=== PATIENT | male | born 1950 | race Caucasian/White ===

== ENCOUNTER → 2016-06-16 | Outpatient (CLI) | payer MEDICARE, MEDICAID ==
[~2016-06-16] MED LIST: ANUS25SU PR; ATIV2TAB PO; DEPA500T2 PO; NATU400T PO; RISP3TAB18 PO; SERO1TAB PO; TRAZ50TA4 PO; VITA200016 PO; ZANTTAB9 PO
[2016-06-16 14:23] LABS: BASO % 0.4 % (0.0-1.0); EOS # 0.1 K/mm3 (0.0-0.50); EOS % 1.9 % (0.0-3.0); LARGE UNSTAINED CELL # 0.1 K/mm3 (0.0-0.4); LARGE UNSTAINED CELL % 2.7 % (0.0-4.0); LYMPH # 1.5 K/mm3 (1.5-4.5); LYMPH % 27.5 % (24.0-44.0); MEAN CORPUSCULAR HEMOGLOBIN 30.8 pg (27.0-33.0); MEAN CORPUSCULAR VOLUME 93.4 fl (80.0-96.0); MONO # 0.5 K/mm3 (0.0-0.8); NEUTROPHILS % 58.6 % (36.0-66.0); PLATELET COUNT, AUTOMATED 211 k/mm3 (150-450); RED CELL DISTRIBUTION WIDTH 13.6 % (11.5-14.5)
[2016-06-16 14:31] LABS: ALBUMIN 3.8 GM/DL (3.2-5.2); ALBUMIN/GLOBULIN RATIO 0.97 (1.00-1.93); ALKALINE PHOSPHATASE 81 U/L (45-117); ALT/SGPT 23 U/L (12-78); ANION GAP 8 MEQ/L (8-16); AST/SGOT 24 U/L (15-37); BILIRUBIN,TOTAL 0.6 MG/DL (0.2-1.0); BLOOD UREA NITROGEN 15 MG/DL (7-18); CALCIUM LEVEL 8.5 MG/DL (8.8-10.2); CARBON DIOXIDE LEVEL 31 MEQ/L (21-32); CHLORIDE LEVEL 100 MEQ/L (98-107); CHOLESTEROL LEVEL 133 MG/DL (<200); CREATININE FOR GFR 0.88 MG/DL (0.70-1.30); FREE T4 1.03 NG/DL (0.76-1.46); GLOMERULAR FILTRATION RATE > 60.0 (>49); GLUCOSE, FASTING 89 MG/DL (80-110); POTASSIUM SERUM 4.9 MEQ/L (3.5-5.1); SODIUM LEVEL 139 MEQ/L (136-145); TOTAL PROTEIN 7.7 GM/DL (6.4-8.2); TRIGLYCERIDES LEVEL 66 MG/DL (<150)
== END ==
LOC: M WUC 09:15
PROVIDERS: ATTEND Family Medicine
DX: N18.3 Chronic kidney disease, stage 3 (moderate) (principal); R73.01 Impaired fasting glucose

== ENCOUNTER 2016-06-17 13:50 | Emergency (ER) | payer MEDICARE, MEDICAID ==
[~2016-06-17] VITALS: Ht 160 cm; Wt 65.8 kg
[~2016-06-17 13:50] MED LIST changes: -ANUS25SU PR
[2016-06-17 13:51] VITALS: BP 138/93
[2016-06-17] MEDS ORDERED: ANUS25SU PR (14:37)
== END 2016-06-17 14:49 | disposition home or self-care (01) ==
LOC: M ED 14:30
DX: K64.9 Unspecified hemorrhoids (principal); F79 Unspecified intellectual disabilities; Z88.8 Allergy status to other drugs, medicaments and biological substances; Z79.899 Other long term (current) drug therapy

== ENCOUNTER → 2016-08-09 | Outpatient (CLI) | payer MEDICARE, MEDICAID ==
[~2016-08-09] MED LIST changes: +ANUS25SU PR
[2016-08-09 09:29] LABS: BASO % 0.4 % (0.0-1.0); EOS # 0.1 K/mm3 (0.0-0.50); LARGE UNSTAINED CELL # 0.1 K/mm3 (0.0-0.4); LARGE UNSTAINED CELL % 2.3 % (0.0-4.0); LYMPH # 1.7 K/mm3 (1.5-4.5); MEAN CORPUSCULAR HEMOGLOBIN 32.4 pg (27.0-33.0); MEAN CORPUSCULAR HGB CONC 34.4 g/dl (32.0-36.5); MEAN CORPUSCULAR VOLUME 94.3 fl (80.0-96.0); MONO # 0.4 K/mm3 (0.0-0.8); MONO % 7.9 % (0.0-5.0); NEUTROPHILS # 2.8 K/mm3 (1.8-7.7); NEUTROPHILS % 55.4 % (36.0-66.0); PLATELET COUNT, AUTOMATED 194 k/mm3 (150-450); RED CELL DISTRIBUTION WIDTH 13.6 % (11.5-14.5); WHITE BLOOD COUNT 5.1 K/mm3 (4.0-10.0)
[2016-08-09 09:51] LABS: ALBUMIN 3.5 GM/DL (3.2-5.2); ALBUMIN/GLOBULIN RATIO 0.95 (1.00-1.93); BILIRUBIN,DIRECT 0.1 MG/DL (0.0-0.2); BILIRUBIN,TOTAL 0.6 MG/DL (0.2-1.0); TOTAL PROTEIN 7.2 GM/DL (6.4-8.2)
[2016-08-09 10:23] LABS: PROLACTIN 18.9 NG/ML (2.1-17.7)
== END ==
LOC: M WUC 08:21
PROVIDERS: ATTEND Anesthesiology Pain Medicine
DX: Z51.81 Encounter for therapeutic drug level monitoring (principal); Z79.899 Other long term (current) drug therapy

== ENCOUNTER → 2016-08-09 | Outpatient (CLI) | payer MEDICARE, MEDICAID ==
[2016-08-09 09:29] LABS: BASO % 0.4 % (0.0-1.0); EOS # 0.1 K/mm3 (0.0-0.50); EOS % 2.1 % (0.0-3.0); LARGE UNSTAINED CELL # 0.1 K/mm3 (0.0-0.4); LARGE UNSTAINED CELL % 2.3 % (0.0-4.0); LYMPH # 1.8 K/mm3 (1.5-4.5); LYMPH % 33.2 % (24.0-44.0); MEAN CORPUSCULAR HEMOGLOBIN 32.1 pg (27.0-33.0); MEAN CORPUSCULAR HGB CONC 33.9 g/dl (32.0-36.5); MEAN CORPUSCULAR VOLUME 94.6 fl (80.0-96.0); MONO # 0.4 K/mm3 (0.0-0.8); MONO % 7.7 % (0.0-5.0); NEUTROPHILS # 2.8 K/mm3 (1.8-7.7); NEUTROPHILS % 54.3 % (36.0-66.0); PLATELET COUNT, AUTOMATED 175 k/mm3 (150-450); RED CELL DISTRIBUTION WIDTH 13.6 % (11.5-14.5); WHITE BLOOD COUNT 5.2 K/mm3 (4.0-10.0)
[2016-08-09 09:54] LABS: ALBUMIN 3.4 GM/DL (3.2-5.2); ALBUMIN/GLOBULIN RATIO 0.94 (1.00-1.93); ALKALINE PHOSPHATASE 71 U/L (45-117); ALT/SGPT 19 U/L (12-78); ANION GAP 6 MEQ/L (8-16); AST/SGOT 14 U/L (15-37); BILIRUBIN,TOTAL 0.5 MG/DL (0.2-1.0); BLOOD UREA NITROGEN 18 MG/DL (7-18); CALCIUM LEVEL 8.5 MG/DL (8.8-10.2); CARBON DIOXIDE LEVEL 32 MEQ/L (21-32); CHLORIDE LEVEL 102 MEQ/L (98-107); CREATININE FOR GFR 1.05 MG/DL (0.70-1.30); FERRITIN 256 NG/ML (26-388); GLOMERULAR FILTRATION RATE > 60.0 (>49); GLUCOSE, FASTING 76 MG/DL (80-110); PERCENT SATURATION 30.5 % (19.7-37.4); POTASSIUM SERUM 4.7 MEQ/L (3.5-5.1); SODIUM LEVEL 140 MEQ/L (136-145); TOTAL IRON BINDING CAPACITY 292 UG/DL (250-450)
[2016-08-09 10:02] LABS: VITAMIN B12 LEVEL 521 PG/ML (247-911)
[2016-08-09 11:12] LABS: ALBUMIN 3.98 GM/DL (3.29-5.55); ALBUMIN % 56.9 % (55.8-66.1)
== END ==
LOC: M WUC 08:26
PROVIDERS: ATTEND Family Medicine
DX: N18.3 Chronic kidney disease, stage 3 (moderate) (principal); R73.01 Impaired fasting glucose; Z12.5 Encounter for screening for malignant neoplasm of prostate; F73 Profound intellectual disabilities; L71.9 Rosacea, unspecified; Z87.19 Personal history of other diseases of the digestive system; K02.9 Dental caries, unspecified; E55.9 Vitamin D deficiency, unspecified; R13.10 Dysphagia, unspecified; R76.11 Nonspecific reaction to tuberculin skin test without active tuberculosis; B35.1 Tinea unguium; Z51.81 Encounter for therapeutic drug level monitoring; Z79.899 Other long term (current) drug therapy; Z86.79 Personal history of other diseases of the circulatory system
CPT/HCPCS: 36415; 80053; 80164; 82607; 82728; 83550; 84146; 84165; 85025; G0103

== ENCOUNTER → 2016-11-30 | Outpatient (REF) | payer MEDICARE, MEDICAID ==
[~2016-11-30] MED LIST changes: -RISP3TAB18 PO; +RISP3TAB20 PO; +TRAZ50TA11 PO; -TRAZ50TA4 PO
[2016-11-30 13:37] LABS: MEAN CORPUSCULAR HEMOGLOBIN 30.9 pg (27.0-33.0); MEAN CORPUSCULAR HGB CONC 32.5 g/dl (32.0-36.5); MEAN CORPUSCULAR VOLUME 95.1 fl (80.0-96.0); RED CELL DISTRIBUTION WIDTH 13.4 % (11.5-14.5); RETIC HEMOGLOBIN EQUIVALENT 37.3 pg (24-36); WHITE BLOOD COUNT 5.7 10^3/uL (4.0-10.0)
[2016-11-30 13:58] LABS: BANDS 1 % (< 11)
[2016-11-30 15:34] LABS: ALBUMIN 3.8 GM/DL (3.2-5.2); ALKALINE PHOSPHATASE 73 U/L (45-117); ALT/SGPT 25 U/L (12-78); ANION GAP 8 MEQ/L (8-16); AST/SGOT 19 U/L (15-37); BILIRUBIN,TOTAL 0.3 MG/DL (0.2-1.0); BLOOD UREA NITROGEN 17 MG/DL (7-18); CALCIUM LEVEL 8.9 MG/DL (8.8-10.2); CARBON DIOXIDE LEVEL 30 MEQ/L (21-32); CHLORIDE LEVEL 100 MEQ/L (98-107); CREATININE FOR GFR 0.95 MG/DL (0.70-1.30); GLOMERULAR FILTRATION RATE > 60.0 (>49); GLUCOSE, FASTING 83 MG/DL (80-110); POTASSIUM SERUM 4.8 MEQ/L (3.5-5.1); SODIUM LEVEL 138 MEQ/L (136-145); TOTAL PROTEIN 7.6 GM/DL (6.4-8.2)
[2016-12-03 12:28] LABS: PRETREATED FOLATE FOR RBCFOL 9.6 NG/ML
== END ==
LOC: M SFHCPLAZ 11:50
PROVIDERS: ATTEND Family Medicine
DX: D75.89 Other specified diseases of blood and blood-forming organs (principal); R73.01 Impaired fasting glucose
CPT/HCPCS: 80053; 80164; 82747; 83036; 85007; 85027; 85046; 86334; G0463

== ENCOUNTER → 2017-02-26 | Outpatient (CLI) | payer MEDICARE, MEDICAID | LOC: M WUC 16:33 | DX: R05 Cough (principal) | CPT/HCPCS: 71020 ==

== ENCOUNTER → 2017-04-07 | Outpatient (REF) | payer MEDICARE, MEDICAID ==
[2017-04-07 12:29] LABS: HEMATOCRIT 42.6 % (42.0-52.0); HEMOGLOBIN 13.8 g/dl (14.0-18.0); MEAN CORPUSCULAR HEMOGLOBIN 30.7 pg (27.0-33.0); MEAN CORPUSCULAR HGB CONC 32.4 g/dl (32.0-36.5); MEAN CORPUSCULAR VOLUME 94.7 fl (80.0-96.0); RED CELL DISTRIBUTION WIDTH 13.6 % (11.5-14.5); WHITE BLOOD COUNT 5.6 10^3/uL (4.0-10.0)
[2017-04-07 12:30] LABS: BASO % 0.4 % (0.0-1.0); EOS # 0.1 10^3/uL (0.0-0.50); EOS % 1.4 % (0.0-3.0); IMMATURE GRANULOCYTE % 0.7 % (0-3.0); LYMPH # 1.9 10^3/uL (1.5-4.5); LYMPH % 34.1 % (24.0-44.0); MONO # 0.7 10^3/uL (0.0-0.8); NEUTROPHILS # 2.8 10^3/uL (1.8-7.7); NEUTROPHILS % 50.4 % (36.0-66.0); PLATELET COUNT, AUTOMATED 209 10^3/uL (150-450)
[2017-04-07 12:44] LABS: ESTIMATED AVERAGE GLUCOSE 111 MG/DL (60-110); HEMOGLOBIN A1c 5.5 %
[2017-04-07 12:47] LABS: ALBUMIN 3.8 GM/DL (3.2-5.2); ALBUMIN/GLOBULIN RATIO 0.97 (1.00-1.93); ALKALINE PHOSPHATASE 75 U/L (45-117); ALT/SGPT 27 U/L (12-78); ANION GAP 6 MEQ/L (8-16); AST/SGOT 21 U/L (7-37); BILIRUBIN,TOTAL 0.2 MG/DL (0.2-1.0); BLOOD UREA NITROGEN 22 MG/DL (7-18); CALCIUM LEVEL 9.1 MG/DL (8.8-10.2); CARBON DIOXIDE LEVEL 32 MEQ/L (21-32); CHLORIDE LEVEL 102 MEQ/L (98-107); CREATININE FOR GFR 1.04 MG/DL (0.70-1.30); GLOMERULAR FILTRATION RATE > 60.0 (>49); GLUCOSE, FASTING 90 MG/DL (70-100); POTASSIUM SERUM 4.4 MEQ/L (3.5-5.1); SODIUM LEVEL 140 MEQ/L (136-145); TOTAL PROTEIN 7.7 GM/DL (6.4-8.2); VALPROIC ACID (DEPAKOTE) 73.7 UG/ML (50.0-100.0)
[2017-04-07 13:02] LABS: PTH INTACT 26.6 PG/ML (18.5-88.0); TOTAL 25(OH) VITAMIN D 48.6 NG/ML (30.0-100.0)
== END ==
LOC: M SFHCPLAZ 10:35
DX: D75.89 Other specified diseases of blood and blood-forming organs (principal); N18.3 Chronic kidney disease, stage 3 (moderate); R73.01 Impaired fasting glucose; Z12.5 Encounter for screening for malignant neoplasm of prostate; E55.9 Vitamin D deficiency, unspecified; F73 Profound intellectual disabilities
CPT/HCPCS: 80164

== ENCOUNTER 2017-05-23 19:34 | Emergency (ER) | payer MEDICARE, MEDICAID ==
[2017-05-23] MEDS: LORazepam 2 MG TAB PO ×2 (21:55)
== END 2017-05-23 22:03 | disposition home or self-care (01) ==
LOC: M ED 19:34
DX: Z76.0 Encounter for issue of repeat prescription (principal); F79 Unspecified intellectual disabilities; Z79.899 Other long term (current) drug therapy; Z88.8 Allergy status to other drugs, medicaments and biological substances
CPT/HCPCS: 99283

== ENCOUNTER → 2017-06-21 | Outpatient (CLI) | payer MEDICARE, MEDICAID | LOC: M SMT 09:37 | DX: J69.0 Pneumonitis due to inhalation of food and vomit (principal) | CPT/HCPCS: 71046 ==

== ENCOUNTER → 2017-09-03 | Outpatient (CLI) | payer MEDICARE, MEDICAID ==
[2017-09-03 19:26] LABS: ALBUMIN 3.7 GM/DL (3.2-5.2); ALBUMIN/GLOBULIN RATIO 1.12 (1.00-1.93); ALKALINE PHOSPHATASE 77 U/L (45-117); ALT/SGPT 25 U/L (12-78); ANION GAP 5 MEQ/L (8-16); AST/SGOT 20 U/L (7-37); BILIRUBIN,TOTAL 0.4 MG/DL (0.2-1.0); BLOOD UREA NITROGEN 17 MG/DL (7-18); CALCIUM LEVEL 8.7 MG/DL (8.8-10.2); CARBON DIOXIDE LEVEL 34 MEQ/L (21-32); CHLORIDE LEVEL 103 MEQ/L (98-107); CREATININE FOR GFR 0.99 MG/DL (0.70-1.30); GLOMERULAR FILTRATION RATE > 60.0 (>49); GLUCOSE, FASTING 114 MG/DL (70-100); POTASSIUM SERUM 4.5 MEQ/L (3.5-5.1); SODIUM LEVEL 142 MEQ/L (136-145); VALPROIC ACID (DEPAKOTE) 71.8 UG/ML (50.0-100.0)
[2017-09-03 19:32] LABS: ESTIMATED AVERAGE GLUCOSE 108 MG/DL (60-110); HEMOGLOBIN A1c 5.4 %
[2017-09-03 19:36] LABS: BASO % 0.4 % (0.0-1.0); EOS # 0.1 10^3/uL (0.0-0.50); EOS % 0.9 % (0.0-3.0); HEMATOCRIT 40.1 % (42.0-52.0); HEMOGLOBIN 13.3 g/dl (13.5-17.5); IMMATURE GRANULOCYTE % 0.2 % (0-3.0); LYMPH # 1.7 10^3/uL (1.5-4.5); LYMPH % 32.8 % (24.0-44.0); MEAN CORPUSCULAR HEMOGLOBIN 31.4 pg (27.0-33.0); MEAN CORPUSCULAR HGB CONC 33.2 g/dl (32.0-36.5); MEAN CORPUSCULAR VOLUME 94.6 fl (80.0-96.0); MONO # 0.7 10^3/uL (0.0-0.8); MONO % 12.5 % (0.0-5.0); NEUTROPHILS # 2.8 10^3/uL (1.8-7.7); NEUTROPHILS % 53.2 % (36.0-66.0); PLATELET COUNT, AUTOMATED 189 10^3/uL (150-450); RED BLOOD COUNT 4.24 10^6/uL (4.30-6.10); RED CELL DISTRIBUTION WIDTH 13.8 % (11.5-14.5); WHITE BLOOD COUNT 5.3 10^3/uL (4.0-10.0)
[2017-09-06 15:00] LABS: INSULIN LEVEL 93.6 uIU/mL (2.6-24.9)
== END ==
LOC: M WUC 14:29
DX: N18.3 Chronic kidney disease, stage 3 (moderate) (principal); D75.89 Other specified diseases of blood and blood-forming organs; R73.01 Impaired fasting glucose; F73 Profound intellectual disabilities
CPT/HCPCS: 83525

== ENCOUNTER → 2018-01-13 | Outpatient (CLI) | payer MEDICARE, MEDICAID ==
[2018-01-13 09:21] LABS: TOTAL 25(OH) VITAMIN D 49.1 NG/ML (30.0-100.0); VITAMIN B12 LEVEL 578 PG/ML (247-911)
[2018-01-13 09:21] LABS: PTH INTACT 46.6 PG/ML (18.5-88.0)
[2018-01-13 10:39] LABS: ESTIMATED AVERAGE GLUCOSE 111 MG/DL (60-110); HEMOGLOBIN A1c 5.5 %
== END ==
LOC: M LAB 07:54
DX: R73.01 Impaired fasting glucose (principal); E55.9 Vitamin D deficiency, unspecified; D75.89 Other specified diseases of blood and blood-forming organs; Z79.899 Other long term (current) drug therapy
CPT/HCPCS: 82607

== ENCOUNTER → 2018-01-18 | Outpatient (CLI) | payer MEDICARE, MEDICAID | LOC: M WUC 09:29 | DX: R05 Cough (principal); R50.9 Fever, unspecified | CPT/HCPCS: 71046 ==

== ENCOUNTER → 2018-01-30 | Outpatient (REF) | payer MEDICARE, MEDICAID ==
[2018-01-30 12:49] LABS: BASO % 0.7 % (0.0-1.0); EOS # 0.1 10^3/uL (0.0-0.50); EOS % 1.2 % (0.0-3.0); HEMATOCRIT 39.4 % (42.0-52.0); HEMOGLOBIN 12.9 g/dl (13.5-17.5); IMMATURE GRANULOCYTE % 1.3 % (0-3.0); LYMPH # 2.1 10^3/uL (1.5-4.5); LYMPH % 34.7 % (24.0-44.0); MEAN CORPUSCULAR HEMOGLOBIN 31.7 pg (27.0-33.0); MEAN CORPUSCULAR HGB CONC 32.7 g/dl (32.0-36.5); MEAN CORPUSCULAR VOLUME 96.8 fl (80.0-96.0); MONO # 0.7 10^3/uL (0.0-0.8); MONO % 11.8 % (0.0-5.0); NEUTROPHILS % 50.3 % (36.0-66.0); PLATELET COUNT, AUTOMATED 245 10^3/uL (150-450); RED BLOOD COUNT 4.07 10^6/uL (4.30-6.10); RED CELL DISTRIBUTION WIDTH 13.2 % (11.5-14.5)
[2018-01-30 13:13] LABS: ALKALINE PHOSPHATASE 71 U/L (45-117); ALT/SGPT 22 U/L (12-78); ANION GAP 5 MEQ/L (8-16); AST/SGOT 15 U/L (7-37); BLOOD UREA NITROGEN 26 MG/DL (7-18); CALCIUM LEVEL 8.9 MG/DL (8.8-10.2); CARBON DIOXIDE LEVEL 33 MEQ/L (21-32); CHLORIDE LEVEL 105 MEQ/L (98-107); CREATININE FOR GFR 1.09 MG/DL (0.70-1.30); GLOMERULAR FILTRATION RATE > 60.0 (>49); GLUCOSE, FASTING 93 MG/DL (70-100); POTASSIUM SERUM 4.5 MEQ/L (3.5-5.1); SODIUM LEVEL 143 MEQ/L (136-145)
[2018-01-30 13:14] LABS: ALBUMIN 3.4 GM/DL (3.2-5.2); ALBUMIN/GLOBULIN RATIO 1.03 (1.00-1.93); BILIRUBIN,TOTAL 0.3 MG/DL (0.2-1.0); TOTAL PROTEIN 6.7 GM/DL (6.4-8.2)
== END ==
LOC: M SFHCPLAZ 10:39
DX: J18.9 Pneumonia, unspecified organism (principal)
CPT/HCPCS: 80053

== ENCOUNTER → 2018-02-03 | Outpatient (CLI) | payer MEDICARE, MEDICAID | LOC: M WHC 14:58 | DX: E55.9 Vitamin D deficiency, unspecified (principal) | CPT/HCPCS: 77080 ==

== ENCOUNTER → 2018-06-20 | Outpatient (REF) | payer MEDICARE, MEDICAID ==
[~2018-06-20] MED LIST changes: +ALBU83IN INH; +AMOX500T2 PO; +Acetaminophen Tab PO; +BENZ-18 PO; +DEPA250T32 PO; +DIVA250T7 PO; +DIVA500T9 PO; +DIVA500T94 PO; +DOXY1CAP60 PO; +LEVA12INH INH; +MUCI600T37 PO; +PRED10TA2 PO; +RANI150T PO; +SERO200T PO; +SERO200T43 PO; +SERO50TA PO; +TRAZ-160 PO; -TRAZ50TA11 PO
== END ==
LOC: M SFHCPLAZ 11:55
PROVIDERS: ATTEND Family Medicine
DX: D75.89 Other specified diseases of blood and blood-forming organs (principal); Z12.5 Encounter for screening for malignant neoplasm of prostate; R76.11 Nonspecific reaction to tuberculin skin test without active tuberculosis; R73.01 Impaired fasting glucose; F73 Profound intellectual disabilities; Z53.8 Procedure and treatment not carried out for other reasons

== ENCOUNTER → 2018-06-21 | Outpatient (CLI) | payer MEDICARE, MEDICAID ==
[2018-06-21 10:03] LABS: BASO % 0.3 % (0.0-1.0); EOS # 0.2 10^3/uL (0.0-0.50); EOS % 2.6 % (0.0-3.0); HEMATOCRIT 41.9 % (42.0-52.0); HEMOGLOBIN 13.6 g/dl (13.5-17.5); LYMPH # 2.2 10^3/uL (1.5-4.5); LYMPH % 35.3 % (24.0-44.0); MEAN CORPUSCULAR HEMOGLOBIN 31.8 pg (27.0-33.0); MEAN CORPUSCULAR HGB CONC 32.5 g/dl (32.0-36.5); MEAN CORPUSCULAR VOLUME 97.9 fl (80.0-96.0); MONO # 0.8 10^3/uL (0.0-0.8); MONO % 13.4 % (0.0-5.0); NEUTROPHILS % 47.9 % (36.0-66.0); PLATELET COUNT, AUTOMATED 215 10^3/uL (150-450); RED BLOOD COUNT 4.28 10^6/uL (4.30-6.10); WHITE BLOOD COUNT 6.2 10^3/uL (4.0-10.0)
[2018-06-21 10:35] LABS: ALBUMIN 3.7 GM/DL (3.2-5.2); ALT/SGPT 29 U/L (12-78); BILIRUBIN,TOTAL 0.2 MG/DL (0.2-1.0); BLOOD UREA NITROGEN 25 MG/DL (7-18); CALCIUM LEVEL 8.2 MG/DL (8.8-10.2); CARBON DIOXIDE LEVEL 32 MEQ/L (21-32); CHLORIDE LEVEL 107 MEQ/L (98-107); CREATININE FOR GFR 1.08 MG/DL (0.70-1.30); GLOMERULAR FILTRATION RATE > 60.0 (>49); GLUCOSE, FASTING 91 MG/DL (70-100); POTASSIUM SERUM 4.2 MEQ/L (3.5-5.1); SODIUM LEVEL 143 MEQ/L (136-145); VALPROIC ACID (DEPAKOTE) 68.9 UG/ML (50.0-100.0)
== END ==
LOC: M WUC 08:48
PROVIDERS: ATTEND Family Medicine
DX: Z12.5 Encounter for screening for malignant neoplasm of prostate (principal); D75.89 Other specified diseases of blood and blood-forming organs; R73.01 Impaired fasting glucose; F73 Profound intellectual disabilities; R76.11 Nonspecific reaction to tuberculin skin test without active tuberculosis
CPT/HCPCS: 36415; 80053; 80164; 83525; 85025; 85046; 86335; 86480; G0103

== ENCOUNTER → 2018-09-21 | Outpatient (CLI) | payer MEDICARE, MEDICAID ==
[~2018-09-21] MED LIST changes: -TRAZ-160 PO; +TRAZ-252 PO
--- NOTE | 2018-09-22 07:20 | REP ---
RIGHT FEMUR, AP AND LATERAL: AP and lateral views of the femur are performed. I see no acute fracture or dislocation. There is mild joint space narrowing at the hip joint with moderate spurring and subchondral sclerosis. There is slight narrowing of the medial aspect of the knee joint. IMPRESSION: Degenerative changes without fracture or dislocation. Electronically Signed by Anjel Damico MD 09/22/2018 08:53 A
== END ==
LOC: M WUC 19:19
PROVIDERS: ATTEND Physician Assistant
DX: M16.11 Unilateral primary osteoarthritis, right hip (principal)

== ENCOUNTER 2018-10-19 15:43 | Observation (INO) | payer MEDICARE, MEDICAID ==
[~2018-10-19] VITALS: Ht 160 cm; Wt 66.6 kg
[2018-10-19] MEDS ORDERED: DOXY50CA4 PO (16:26)
--- NOTE | 2018-10-19 16:47 | REP ---
HISTORY: Stroke-like symptoms. TECHNIQUE: 4.5 mm contiguous transaxial sections were obtained from the skull base to the cerebral convexities with thin cuts through the posterior fossa without the administration of intravenous contrast. FINDINGS: The ventricles and sulci are consistent with the patient's age. There are no extra-axial fluid collections. There is no mass effect. The deep cerebral white matter is consistent with the patient's age. The orbital and petrous structures , cerebellopontine angles, and posterior fossa are unremarkable. The sella turcica, cavernous, and paracavernous structures are essentially unremarkable. The visualized portions of the paranasal sinuses and mastoid air cells are clear. Images of the skull base show no gross abnormality. IMPRESSION: Essentially unremarkable CT examination of the brain. There is evidence of cerebral and cerebellar atrophic change with evidence of mild deep white matter ischemic change. Electronically Signed by Ruddy Amador DO 10/19/2018 04:51 P
[2018-10-19 16:53] LABS: HEMATOCRIT 34.6 % (42.0-52.0); HEMOGLOBIN 11.3 g/dl (13.5-17.5); MEAN CORPUSCULAR HEMOGLOBIN 31.7 pg (27.0-33.0); MEAN CORPUSCULAR HGB CONC 32.7 g/dl (32.0-36.5); MEAN CORPUSCULAR VOLUME 96.9 fl (80.0-96.0); PLATELET COUNT, AUTOMATED 211 10^3/uL (150-450); RED BLOOD COUNT 3.57 10^6/uL (4.30-6.10); WHITE BLOOD COUNT 9.1 10^3/uL (4.0-10.0)
--- NOTE | 2018-10-19 17:03 | REP ---
Portable chest, 04:50 p.m., single AP view with the patient sitting: Comparison is 01/09/2018. The lung lindsay are clear. The cardiac size is normal. The franklin, mediastinum, and skeletal structures are unremarkable. Impression: Negative portable chest. There is no interval change. Electronically Signed by Anjel Tineo MD 10/19/2018 04:55 P
[2018-10-19 17:07] LABS: ALBUMIN 2.5 GM/DL (3.2-5.2); ALT/SGPT 18 U/L (12-78); BILIRUBIN,DIRECT 0.1 MG/DL (0.0-0.2); BILIRUBIN,TOTAL 0.4 MG/DL (0.2-1.0); BLOOD UREA NITROGEN 27 MG/DL (7-18); CALCIUM LEVEL 8.5 MG/DL (8.8-10.2); CARBON DIOXIDE LEVEL 28 MEQ/L (21-32); CHLORIDE LEVEL 106 MEQ/L (98-107); CK-MB VALUE MASS 1.1 NG/ML (<3.6); CPK CREATINE PHOSPHOKINASE 393 U/L (39-308); ETHYL ALCOHOL (ETHANOL) < 0.003 % (0.000-0.010); GLOMERULAR FILTRATION RATE > 60.0 (>49); GLUCOSE, FASTING 103 MG/DL (70-100); MB/CK RELATIVE INDEX 0.28 (< OR =4); POTASSIUM SERUM 4.4 MEQ/L (3.5-5.1); SODIUM LEVEL 140 MEQ/L (136-145); TOTAL PROTEIN 6.1 GM/DL (6.4-8.2); TROPONIN I 0.03 NG/ML (< 0.10); VALPROIC ACID (DEPAKOTE) 62.8 UG/ML (50.0-100.0)
[2018-10-19 17:17] LABS: ATYPICAL LYMPH 1 % (0-5); BASOPHILS 1 % (0-1); EOSINOPHILS 1 % (0-3); LYMPHOCYTES 23 % (19-44); MONOCYTES 17 % (0-5); NEUTROPHILS 57 % (28-66); PLATELET ESTIMATE NORMAL (NORMAL)
[2018-10-19] MEDS ORDERED: ISOVUE-370 76% 100ML VIAL (Q9967) As Ordered ONE (17:30)
[2018-10-19 17:36] LABS: AMPHETAMINES LEVEL URINE NEGATIVE (NEGATIVE); BARBITURATES URINE NEGATIVE (NEGATIVE); BENZODIAZEPINES URINE NEGATIVE (NEGATIVE); CANNABINOIDS URINE NEGATIVE (NEGATIVE); COCAINE METABOLITE URINE NEGATIVE (NEGATIVE); METHADONE URINE NEGATIVE (NEGATIVE); OPIATES URINE NEGATIVE (NEGATIVE); PHENCYCLIDINE URINE NEGATIVE (NEGATIVE)
--- NOTE | 2018-10-19 18:13 | REPVR ---
EXAM: CT Angiography Neck With Contrast EXAM DATE/TIME: 10/19/2018 5:33 PM CLINICAL HISTORY: 68 years old, male; Other: CVA TECHNIQUE: Imaging protocol: Axial computed tomographic angiography images of the neck with intravenous contrast using CT angiography protocol. 3D rendering: MIP reconstructed images were created and reviewed. Radiation optimization: All CT scans at this facility use at least one of these dose optimization techniques: automated exposure control; mA and/or kV adjustment per patient size (includes targeted exams where dose is matched to clinical indication); or iterative reconstruction. Contrast material: ISOVUE 370; Contrast volume: 100 ml; Contrast route: IV; COMPARISON: No relevant prior studies available. FINDINGS: VASCULATURE: Right common carotid artery: Unremarkable. No stenosis. No dissection or occlusion. Right internal carotid artery: Unremarkable extracranial segment. No stenosis. No dissection or occlusion. Right external carotid artery: Unremarkable. No occlusion or stenosis of the origin. Right vertebral artery: Unremarkable. No stenosis. No dissection or occlusion. Left common carotid artery: Unremarkable. No stenosis. No dissection or occlusion. Left internal carotid artery: Unremarkable extracranial segment. No stenosis. No dissection or occlusion. Left external carotid artery: Unremarkable. No occlusion or stenosis of the origin. Left vertebral artery: Mild dominance left vertebral artery. NECK: Bones/joints: Degenerative spondylosis cervical spine. Soft tissues: Normal. No significant soft tissue swelling. Lymph nodes: Right hilar, right paratracheal, and subcarinal lymphadenopathy. IMPRESSION: 1. Right hilar, right paratracheal, and subcarinal lymphadenopathy. 2. No significant atherosclerotic disease in either carotid artery indicating less than 50% or mild stenosis using NASCET criteria. 3. Mild dominance left vertebral artery. COMMENT: Reference per NASCET criteria for degree of stenosis: Mild: less than 50% stenosis. Moderate: 50-69% stenosis. Severe: 70-94% stenosis. Near occlusion: 95-99% stenosis. Electronically signed by: Segun Tesfaye On 10/19/2018 18:12:56 PM
--- NOTE | 2018-10-19 18:16 | REPVR ---
EXAM: CT Angiography Head With Contrast EXAM DATE/TIME: 10/19/2018 5:33 PM CLINICAL HISTORY: 68 years old, male; Other: R facial droop; Additional info: CVA TECHNIQUE: Imaging protocol: Computed tomographic angiography images of the head with intravenous contrast using CT angiography protocol. 3D rendering: MIP reconstructed images were created and reviewed. Radiation optimization: All CT scans at this facility use at least one of these dose optimization techniques: automated exposure control; mA and/or kV adjustment per patient size (includes targeted exams where dose is matched to clinical indication); or iterative reconstruction. Contrast material: ISOVUE 370; Contrast volume: 100 ml; Contrast route: IV; COMPARISON: CT Head Stroke Protocol 10/19/2018 3:48 PM FINDINGS: Right internal carotid artery: Unremarkable. Intracranial segment is patent with no significant stenosis. No aneurysm. Right anterior cerebral artery: Unremarkable. No occlusion or significant stenosis. No aneurysm. Right middle cerebral artery: Unremarkable. No occlusion or significant stenosis. No aneurysm. Right posterior cerebral artery: Unremarkable. No occlusion or significant stenosis. No aneurysm. Right vertebral artery: Unremarkable. No occlusion or significant stenosis. No aneurysm. Left internal carotid artery: Unremarkable. Intracranial segment is patent with no significant stenosis. No aneurysm. Left anterior cerebral artery: Unremarkable. No occlusion or significant stenosis. No aneurysm. Left middle cerebral artery: Unremarkable. No occlusion or significant stenosis. No aneurysm. Left posterior cerebral artery: Unremarkable. No occlusion or significant stenosis. No aneurysm. Left vertebral artery: Unremarkable. No occlusion or significant stenosis. No aneurysm. Basilar artery: Unremarkable. No occlusion or significant stenosis. No aneurysm. IMPRESSION: No acute findings. Electronically signed by: Segun Tesfaye On 10/19/2018 18:16:11 PM
[2018-10-19] MEDS ORDERED: VITA400C56 PO (19:29)
[2018-10-19] MEDS ORDERED: RANI75TA15 PO (19:29)
[2018-10-19] MEDS ORDERED: QUET200T54 PO (19:29)
[2018-10-19] MEDS ORDERED: DOCU100C16 PO (19:29)
[2018-10-19] MEDS ORDERED: MILKSUS3 PO (19:29)
[2018-10-19] MEDS ORDERED: QUEtiapine FUMARATE **XR** 200MG TABLET PO SCH (21:00)
[2018-10-19] MEDS ORDERED: DIVALPROEX 250MG *ER* TAB PO SCH (21:00)
[2018-10-19] MEDS ORDERED: FAMOTIDINE 20 MG TAB PO SCH (21:00)
[2018-10-19] MEDS ORDERED: traZODone 50 MG TAB PO SCH (21:00)
--- NOTE | 2018-10-19 22:09 | REPVR ---
EXAM: US Duplex Bilateral Extracranial Arteries EXAM DATE/TIME: 10/19/2018 9:59 PM CLINICAL HISTORY: 68 years old, male; Other: Facial droop; Patient HX: Patient mentally handicapped, unable to complete exam d. T patient motion and cooperation TECHNIQUE: Imaging protocol: Real-time Duplex ultrasound scan of the Bilateral carotid and vertebral arteries combining lin scale, color Doppler and spectral waveform analysis. COMPARISON: CT Head Stroke Protocol 10/19/2018 3:48 PM It should be noted that only the right carotid artery was evaluated as this patient was noncooperative and unable to complete examination. FINDINGS: Right common carotid artery: Unremarkable. No occlusion or stenosis. Waveforms are not evaluated Right internal carotid artery: Unremarkable. No occlusion or stenosis. Waveforms not evaluated Right ICA/CCA ratio: Not calculated Right external carotid artery: No stenosis in the origin. Right vertebral artery: Unremarkable. Antegrade flow Left common carotid artery: Not evaluated Left internal carotid artery: Not evaluated Left ICA/CCA ratio: Not evaluated Left external carotid artery: Not evaluated Left vertebral artery: Evaluated IMPRESSION: 1. Nondiagnostic study of the left carotid artery. 2. There is limited evaluation of the right carotid artery without evidence of any significant atherosclerotic plaque or narrowing. Less than 50% stenosis. COMMENT: Carotid Stenosis Reference using SRU criteria: Mild: less than 50% stenosis. ICA PSV is less than 125 cm/second and plaque or intimal thickening is visible. Moderate: 50-69% stenosis. ICA PSV is 125 to 230 cm/second and plaque is visible. Severe: 70-94% stenosis. ICA PSV is more than 230 cm/second and visible plaque and lumen narrowing are seen. Near occlusion: 95-99% stenosis. ICA PSV is variable and significant plaque and luminal narrowing are seen. Occluded: 100% stenosis. No flow identified. Electronically signed by: Segun Tesfaye On 10/19/2018 22:08:56 PM
[2018-10-19] MEDS: risperiDONE 3 MG TAB PO SCH (23:00)
[2018-10-19] MEDS: LORazepam 2 MG TAB PO SCH (23:00)
[2018-10-19 23:32] VITALS: BP 161/96
[2018-10-20] MEDS ORDERED: UNRESOLVED PATIENT OWN MED ORDER XX SCH (00:01)
--- NOTE | 2018-10-20 01:48 | HPEPDOC ---
[facility] Medical History & Physical Date of Admission Oct 19, 2018 Date of Service: Oct 19, 2018 History and Physical CHIEF COMPLAINT: [RIGHT SIDED FACIAL DROOP ] HISTORY OF PRESENT ILLNESS: Patient is a 68 yo male with hx of MR and schizonphrenia who was sent to the ED for right sided facial droop. Patient is not able to give hx, but her aid at bedside, patient was noted to have facial drooping today and was sent in for eval for possible stroke. He also stated that there was concern for right ear swelling . He denied patient complaining of chest pain, sob, headache , blurry vision, abd pain, nausea or vomiting PAST MEDICAL HISTORY: 1. MR 2. Schizophrenia 3. rosesea PAST SURGICAL HISTORY: none SOCIAL HISTORY: resides at [facility] residence dependent on assistance with ADLs FAMILY HISTORY: unknown ALLERGIES: Please see below. HOME MEDICATIONS: Please see below. LABORATORY DATA: See below. IMAGING: [ CAROTID DOPPLER IMPRESSION: 1. Nondiagnostic study of the left carotid artery. 2. There is limited evaluation of the right carotid artery without evidence of any significant atherosclerotic plaque or narrowing. Less than 50% stenosis. CTA OF NECK IMPRESSION: 1. Right hilar, right paratracheal, and subcarinal lymphadenopathy. 2. No significant atherosclerotic disease in either carotid artery indicating less than 50% or mild stenosis using NASCET criteria. 3. Mild dominance left vertebral artery. Portable chest, 04:50 p.m., single AP view with the patient sitting: Comparison is 01/09/2018. The lung lindsay are clear. The cardiac size is normal. The franklin, mediastinum, and skeletal structures are unremarkable. Impression: Negative portable chest. There is no interval change. CT BRAIN IMPRESSION: Essentially unremarkable CT examination of the brain. There is evidence of cerebral and cerebellar atrophic change with evidence of mild deep white matter ischemic change.] ROS - all 10 point review of system is negative except for whats listed in HPI Physical exam Gen: NAD, semi-cooperative HEENT: normocephalic, atraumatic, no discharge from ears or nose, no oropharyngeal erythema or exudate, neck is supple, no lymphadenopathy, trachea midline, no ear exam due to uncooperativeness CVS: RRR, normal S1n S2, no murmur, rubs, or gallops, no edema, no jvd Resp: LCTAB, no rhonchi, wheezes or crackles Abd : soft nontender, normal bowel sounds, no rebound tenderness or guarding MSK: no swelling, full range of motion, strength 5/5 Neuro:awake and alert, follows some commands, no confusion, right sided facial droop without involvement of the forehead , right ptosis - neuro exam limited due to uncooperative problems Psych: slightly agitated MICROBIOLOGY: Please see below. ASSESSMENT: [Assessment and plan acute cva vs TIA -Images listed above -f/u mri//mra head and neck -f/u echo -c/w aspirin and start high dose statin - neuro consulted -swallow eval -npo until past swallow test -REHAB//PT eval right eye infection -mucous noted -antibiotic eye drop c/w home meds dvt ppx full code, from residence Contact - Clau Rodriguez - [phone] Donavon [phone] Vital Signs Vital Signs Date Time Temp Pulse Resp B/P (MAP) Pulse Ox O2 Delivery O2 Flow Rate FiO2 10/19/18 22:53 96.8 96 20 135/83 (100) 96 Room Air Laboratory Data Labs 24H Laboratory Tests 2 10/19/18 16:15: Nucleated Red Blood Cells % (auto) 0.0, Neutrophils 57, Lymphocytes (Manual) 23, Monocytes (Manual) 17H, Eosinophils (Manual) 1, Basophils (Manual) 1, Atypical Lymphocytes 1, Platelet Estimate NORMAL, Red Blood Cell Morphology NORMAL, Anion Gap 6L, Glomerular Filtration Rate > 60.0, Calcium Level 8.5L, Aspartate Amino Transf (AST/SGOT) 25, Alanine Aminotransferase (ALT/SGPT) 18, Alkaline Phosphatase 66, Total Bilirubin 0.4, Direct Bilirubin 0.1, Total Creatine Kinase 393H, Creatine Kinase MB 1.1, Creatine Kinase MB Relative Index 0.28, Troponin I 0.03, Total Protein 6.1L, Albumin 2.5L, Albumin/Globulin Ratio 0.69L, Thyroid Stimulating Hormone (TSH) 2.440, Valproic Acid (Depakene) Level 62.8, Ethyl Alcohol Level < 0.003 10/19/18 16:49: Urine Color JAKY, Urine Appearance CLEAR, Urine pH 5.0, Urine Specific [place] 1.029, Urine Protein NEGATIVE, Urine Glucose (UA) NEGATIVE, Urine Ketones TRACEH, Urine Blood NEGATIVE, Urine Nitrite NEGATIVE, Urine Bilirubin NEGATIVE, Urine Urobilinogen 0.2, Urine Leukocyte Esterase NEGATIVE, Urine WBC (Auto) 2, Urine RBC (Auto) 3, Urine Hyaline Casts (Auto) 0, Urine Bacteria (Auto) NEGATIVE, Urine Squamous Epithelial Cells 0, Urine Mucus (Auto) LARGE, Urine Sperm (Auto) , Urine Amphetamines Screen NEGATIVE, Urine Benzodiazepines Screen NEGATIVE, Urine Opiates Screen NEGATIVE, Urine Methadone Screen NEGATIVE, Urine Barbiturates Screen NEGATIVE, Urine Phencyclidine Screen NEGATIVE, Urine Cocaine Metabolite Screen NEGATIVE, Urine Cannabinoids Screen NEGATIVE 10/19/18 16:56: Bedside Glucose (Misc Panel) 102 CBC/BMP Laboratory Tests 10/19/18 16:15 Red Blood Count 3.57 L, Mean Corpuscular Volume 96.9 H, Mean Corpuscular Hemoglobin 31.7, Mean Corpuscular Hemoglobin Concent 32.7, Red Cell Distribution Width 13.2 Home Medications Scheduled Cholecalciferol (Vitamin D3) (Vitamin D3) 2,000 Unit Cap, 2,000 UNIT PO DAILY Divalproex Sodium (Divalproex Sodium ER) 250 Mg Tab, 250 MG PO QHS Divalproex Sodium (Divalproex Sodium ER) 500 Mg Tab, 500 MG PO DAILY Docusate Sodium (Docusate Sodium) 100 Mg Capsule, 100 MG PO BID Doxycycline Monohydrate (Doxycycline Monohydrate) 50 Mg Capsule, 50 MG PO DAILY Lorazepam (Ativan) 2 Mg Tab, 2 MG PO QID Magnesium Hydroxide (Milk of Magnesia) 400 Mg/5 Ml Oral.susp, 30 ML PO QHS Quetiapine Fumarate (Seroquel) 50 Mg Tab, 50 MG PO DAILY Quetiapine Fumarate (Quetiapine Fumarate ER) 200 Mg Tab.er.24h, 200 MG PO QHS Ranitidine HCl (Ranitidine HCl) 75 Mg Tablet, 1 TAB PO QHS Risperidone (Risperdal) 3 Mg Tab, 3 MG PO BID Trazodone HCl (Trazodone HCl) 50 Mg Tab, 50 MG PO QHS Vitamin E (Vitamin E) 400 Unit Capsule, 400 UNIT PO DAILY Allergies Coded Allergies: fentanyl (Verified Allergy, Intermediate, photosensitivity, 10/19/18) A-FIB/CHADSVASC A-FIB History Current/History of A-Fib/PAF?: No Current PO Anticoag Therapy: No Age/Risk Factor Scoring CHADSVASC: CHADSVASC Response (Comments) Value Age Risk Factor Age 65-74 years old 1 Gender Risk Factor Male 0 Hx of CHF No 0 Hx of HTN No 0 Hx of Stroke/TIA/or VTE No 0 Hx of Diabetes No 0 Hx of Vascular Disease No 0 Total 1 Treatment Treatment ordered: NONE LEONIDES COLEY MD Oct 20, 2018 01:22
[2018-10-20] MEDS ORDERED: ATORVASTATIN 20 MG TAB PO SCH (02:00)
[2018-10-20] MEDS: ASPIRIN 81 MG ENTERIC TAB PO SCH ×2 (03:44→09:00)
[2018-10-20] MEDS: ERYTHROMYCIN OPHTH OINT OD SCH ×3 (03:44→18:11)
[2018-10-20 04:00] VITALS: BP 130/64
--- NOTE | 2018-10-20 05:29 | ECGEPIP ---
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
[2018-10-20 05:54] LABS: HEMATOCRIT 34.7 % (42.0-52.0); HEMOGLOBIN 11.6 g/dl (13.5-17.5); MEAN CORPUSCULAR HEMOGLOBIN 31.8 pg (27.0-33.0); MEAN CORPUSCULAR HGB CONC 33.4 g/dl (32.0-36.5); MEAN CORPUSCULAR VOLUME 95.1 fl (80.0-96.0); PLATELET COUNT, AUTOMATED 227 10^3/uL (150-450); RED BLOOD COUNT 3.65 10^6/uL (4.30-6.10); WHITE BLOOD COUNT 9.4 10^3/uL (4.0-10.0)
[2018-10-20 06:27] LABS: BLOOD UREA NITROGEN 24 MG/DL (7-18); CALCIUM LEVEL 8.5 MG/DL (8.8-10.2); CARBON DIOXIDE LEVEL 29 MEQ/L (21-32); CHLORIDE LEVEL 104 MEQ/L (98-107); CHOLESTEROL LEVEL 86 MG/DL (<200); CHOLESTEROL RISK RATIO 2.529 (<5); CREATININE FOR GFR 1.05 MG/DL (0.70-1.30); GLOMERULAR FILTRATION RATE > 60.0 (>49); GLUCOSE, FASTING 111 MG/DL (70-100); HDL CHOLESTEROL 34 MG/DL (>40); LDL CHOLESTEROL 37 MG/DL (<100); MAGNESIUM LEVEL 2.2 MG/DL (1.8-2.4); NON-HDL-C 52 MG/DL; POTASSIUM SERUM 4.2 MEQ/L (3.5-5.1); SODIUM LEVEL 139 MEQ/L (136-145); TRIGLYCERIDES LEVEL 74 MG/DL (<150)
[2018-10-20 08:00] VITALS: BP 134/92
[2018-10-20] MEDS ORDERED: DOCUSATE SODIUM 100 MG CAP PO SCH (09:00)
[2018-10-20] MEDS ORDERED: DOXYCYCLINE HYCLATE 100 MG TAB PO SCH (09:00)
[2018-10-20] MEDS ORDERED: VITAMIN D 1,000 INTERNATIONAL UNITS TABLET PO SCH (09:00)
[2018-10-20] MEDS ORDERED: DIVALPROEX 500MG *ER* TAB PO SCH (09:00)
[2018-10-20] MEDS: LORazepam 2 MG TAB PO SCH ×3 (09:00→18:13)
[2018-10-20] MEDS ORDERED: QUEtiapine FUMARATE 50 MG TAB PO SCH (09:00)
[2018-10-20] MEDS ORDERED: VARIBAR PUDDING 40% w/v 230ML TUBE As Ordered ONE (11:03)
[2018-10-20] MEDS ORDERED: BARIUM SULFATE 700 MG TABLET (E-Z-DISK) As Ordered ONE (11:04)
[2018-10-20] MEDS ORDERED: E-Z-PAQUE 96% w/w SUSP 176GM BTL As Ordered ONE (11:04)
[2018-10-20] MEDS ORDERED: VARIBAR NECTAR 40% w/v 240ML SUSP BTL As Ordered ONE (11:04)
[2018-10-20 12:00] VITALS: BP 131/88
--- NOTE | 2018-10-20 13:40 | IPN ---
DATE: 10/19/2018 Joel is seen in progressive care unit (PCU). He is admitted with left facial droop. He does not have any weakness of the arms or hands. Admission history and physical indicated that the forehead was spared, but he actually does have some drooping of the forehead on that side as well, suggesting this might be a peripheral nerve and not a central process. Patient has mental retardation and schizophrenia and does not cooperate well with exam. PHYSICAL EXAMINATION: Vital signs stable. Right facial droop. Ptosis noted. He has decreased wrinkling in the right side of the forehead compared to the left. It is hard to get him to cooperate with wrinkling of his forehead fully. Lungs clear. Heart regular rate and rhythm. Abdomen soft and nontender. Moves arm and legs with equal strength. IMPRESSION: Facial droop, weakness. At this point we are waiting on the MRI scan. He did not cooperate with it previously. This could well be a peripheral nerve process, such as Ramirez's palsy. It is tick season, so I will check a Lyme screen.
[2018-10-20] MEDS: risperiDONE 3 MG TAB PO SCH (14:02)
[2018-10-20 16:00] VITALS: BP 163/97
--- NOTE | 2018-10-20 16:11 | REPVR ---
EXAM: MR Head Without Contrast EXAM DATE/TIME: 10/20/2018 3:06 PM CLINICAL HISTORY: 68 years old, male; Weakness, extremity; Right; Patient HX: Ptosis RT eyelid; Additional info: CVA TECHNIQUE: Imaging protocol: MR of the head without contrast. COMPARISON: CT Head Stroke Protocol 10/19/2018 3:48 PM FINDINGS: Brain: There is mild volume loss. There is hyperintense signal within the white matter most consistent with chronic microvascular disease. There are small old white matter lacunar infarcts. DWI demonstrates no evidence of acute infarct. Gradient echo images demonstrate no evidence of hemorrhage. There is no extra-axial collection. There is no mass. There are no abnormal flow voids. Ventricles: Normal. No ventriculomegaly. Bones/joints: Unremarkable. Soft tissues: Normal. Sinuses: Normal as visualized. No acute sinusitis. Mastoid air cells: Normal as visualized. No mastoid effusion. Orbits: Unremarkable. IMPRESSION: 1. There is chronic microvascular disease. 2. No acute intracranial lesion or injury. Electronically signed by: Jason Dwyer On 10/20/2018 16:10:57 PM
--- NOTE | 2018-10-20 16:18 | REPVR ---
EXAM: MR Angiogram Head Without Contrast, Arteries EXAM DATE/TIME: 10/20/2018 3:06 PM CLINICAL HISTORY: 68 years old, male; Weakness; Additional info: CVA TECHNIQUE: Imaging protocol: MR angiogram head without contrast. Exam focused on the arteries. COMPARISON: CT ANGIO HEAD 10/19/2018 5:28 PM FINDINGS: Right internal carotid artery: There is a small, less than 1 mm, bulge along the undersurface of the supraclinoid right internal carotid artery, probably a posterior communicating artery infundibulum. Right anterior cerebral artery: Unremarkable. No occlusion or significant stenosis. No aneurysm. Right middle cerebral artery: Unremarkable. No occlusion or significant stenosis. No aneurysm. Right posterior cerebral artery: Unremarkable. No occlusion or significant stenosis. No aneurysm. . Right vertebral artery: Unremarkable. No occlusion or significant stenosis. No aneurysm. Left internal carotid artery: There is a small triangular bulge along the undersurface of the supraclinoid left internal carotid artery measuring less than 10 mm. This is a probable posterior communicating artery infundibulum. Left anterior cerebral artery: Unremarkable. No occlusion or significant stenosis. No aneurysm. Left middle cerebral artery: Unremarkable. No occlusion or significant stenosis. No aneurysm. Left posterior cerebral artery: Unremarkable. No occlusion or significant stenosis. No aneurysm. Left vertebral artery: Unremarkable. No occlusion or significant stenosis. No aneurysm. Basilar artery: Unremarkable. No occlusion or significant stenosis. No aneurysm. Other findings: There is motion artifact. IMPRESSION: 1. Probable small, less than 2 mm on the left and left and 1 mm on the right, bilateral posterior communicating artery infundibula. No definite aneurysm. 2. No intracranial stenosis or occlusion. Electronically signed by: Jason Dwyer On 10/20/2018 16:17:48 PM
--- NOTE | 2018-10-20 16:52 | DSES ---
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 HISTORY: Joel Laureano has a history of mental retardation and schizophrenia. He had right facial droop and presented to the emergency room. For details, please refer to the history and physical on admission. HOSPITAL COURSE: The patient was admitted to a progressive care unit (PCU) bed. On examination today, I thought he had Ramirez's palsy: he had no significant sparing of his right forehead with a right facial droop and weakness. It took us awhile to get an MRI scan. Once it was done, it came back with no sign of stroke. Carotid ultrasound showed less than 50% stenosis bilaterally. CT angiogram was unremarkable. I ordered a Lyme screen and it is pending. Laboratory work was unremarkable. 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 He will followup with his primary care provider in a week. His medicines were unchanged from before admission. - vitamin D 2000 units daily - valproic acid 250 mg four at bedtime and 500 mg in the morning - Colace 10 mg twice a day - doxycycline 50 mg daily - Ativan 2 mg four times a day - Milk of Magnesia as needed - Seroquel 50 mg in the morning and 200 mg in the evening - ranitidine 75 mg at bedtime - Risperdal 3 mg twice a day - trazodone 50 mg at bedtime - vitamin E 400 units daily Activity and diet as tolerated. Followup with primary care provider in a week. JACQUES
--- NOTE | 2018-10-20 19:43 | REP ---
Examination Requested: Cookie Swallow Reason For Exam: Aspiration risk, difficulty swallowing The procedure was performed by ANA Hernandez, under the direct supervision of Dr. Tineo. The procedure was performed with Tita Calle from speech pathology present. 5 ml aliquots of nectar, and pudding consistency barium was administered. No penetration or aspiration was visualized. The detailed report of this examination will be provided by speech pathology. 1.7 minutes of fluoroscopy time was utilized for this procedure. Reviewed by ANA Santos 10/20/2018 05:35 P Electronically Signed by Anjel Tineo MD 10/20/2018 07:35 P
--- NOTE | 2018-10-21 06:51 | ECHO ---
DATE OF PROCEDURE: 10/20/2018 REFERRING PHYSICIAN: Dr. Karolina Oneill. HEIGHT: 160 cm. WEIGHT: 69 kg. INDICATION: Stroke. 2D MEASUREMENTS: Ventricular septum: 0.94 cm Posterior wall: 0.89 cm Left ventricle diastole: 4.3 cm Left atrium: 3.4 cm LVOT: 2.1 cm Aortic root: 2.8 cm Left atrial volume index: 22 Inferior vena cava: 1.5 cm DOPPLER MEASUREMENTS: Aortic valve velocity: 140 cm/s LVOT velocity: 109 cm/s Mitral E velocity: 68.9 cm/s Mitral A velocity: 86.3 cm/s Mitral deacceleration time: 169 ms Pulmonary artery systolic pressure: 19 mmHg MITRAL ANNULAR TISSUE DOPPLER: E-prime septal: 6.1 cm/s E-prime lateral: 6.9 cm/s DESCRIPTION: Rhythm was sinus. Image quality was fair. No pericardial effusion. This was a 2D, M-mode, color flow Doppler, and pulsed wave Doppler examination and included mitral annular tissue Doppler. CONCLUSIONS: 1. Normal left ventricle internal dimensions and wall thickness. Normal regional LV wall motion and wall thickening. Normal LV systolic function. Grade 1 LV diastolic dysfunction. 2. Otherwise normal echocardiogram Doppler findings.
[2018-10-22 00:06] LABS: Lyme Disease IgG/IgM Antibodie <0.91 ISR (0.00-0.90); Lyme Disease IgM Ab Quantitati <0.80 index (0.00-0.79)
== END 2018-10-20 19:53 | disposition home or self-care (01) ==
LOC: M ED 15:43 → EDBD 15:43 → M ED INP 15:44 → M PCU 23:32
PROVIDERS: ADMIT Internal Medicine; ATTEND Family Medicine
DX: G51.0 Bell's palsy (principal); H57.89 Other specified disorders of eye and adnexa; H02.401 Unspecified ptosis of right eyelid; I67.82 Cerebral ischemia; R41.82 Altered mental status, unspecified; F79 Unspecified intellectual disabilities; F20.9 Schizophrenia, unspecified; L71.9 Rosacea, unspecified; K21.9 Gastro-esophageal reflux disease without esophagitis; N18.9 Chronic kidney disease, unspecified; K02.9 Dental caries, unspecified; Z91.81 History of falling; Z79.899 Other long term (current) drug therapy; Z79.2 Long term (current) use of antibiotics
CPT/HCPCS: 36415; 51701; 70450; 70496; 70498; 70544; 70551; 71045; 74230; 80048; 80061; 80076; 80164; 80307; 81001; 82550; 82553; 83036; 83735; 84443; 84484; 85025; 85027; 86617; 92526; 92610; 92611; 93005; 93041; 93306; 93880; 94760; 99285; G0378; G0480; Q9967

== ENCOUNTER 2018-10-29 22:30 | Inpatient (IN) | payer MEDICARE, MEDICAID ==
[~2018-10-29] VITALS: Ht 172.7 cm; Wt 67.8 kg
[~2018-10-29 22:30] MED LIST changes: +DOCU100C16 PO; +DOXY50CA4 PO; +MILKSUS3 PO; +QUET200T54 PO; +RANI75TA15 PO; +VITA400C56 PO
[2018-10-29] MEDS ORDERED: NS 1,000 ML IV ONE (22:45)
[2018-10-29 23:16] LABS: HEMATOCRIT 38.6 % (42.0-52.0); HEMOGLOBIN 12.4 g/dl (13.5-17.5); MEAN CORPUSCULAR HEMOGLOBIN 30.8 pg (27.0-33.0); MEAN CORPUSCULAR HGB CONC 32.1 g/dl (32.0-36.5); MEAN CORPUSCULAR VOLUME 95.8 fl (80.0-96.0); PLATELET COUNT, AUTOMATED 372 10^3/uL (150-450); RED BLOOD COUNT 4.03 10^6/uL (4.30-6.10); WHITE BLOOD COUNT 20.6 10^3/uL (4.0-10.0)
[2018-10-29] MEDS ORDERED: ZANT150T40 PO (23:20)
[2018-10-29] MEDS ORDERED: ATIV2TAB PO (23:20)
[2018-10-29] MEDS ORDERED: SERO200T PO (23:20)
[2018-10-29 23:32] LABS: ANISOCYTOSIS 1+; ATYPICAL LYMPH 3 % (0-5); LYMPHOCYTES 13 % (16-44); MONOCYTES 14 % (0-5); NEUTROPHILS 61 % (28-66)
[2018-10-29 23:33] LABS: PLATELET ESTIMATE NORMAL (NORMAL)
[2018-10-29 23:34] LABS: POLYCHROMASIA 1+
[2018-10-29 23:40] LABS: ALBUMIN 1.7 GM/DL (3.2-5.2); BILIRUBIN,DIRECT 0.2 MG/DL (0.0-0.2); BILIRUBIN,TOTAL 0.4 MG/DL (0.2-1.0); CALCIUM LEVEL 8.4 MG/DL (8.8-10.2); CK-MB VALUE MASS 9.5 NG/ML (<3.6); CREATININE FOR GFR 1.77 MG/DL (0.70-1.30); GLOMERULAR FILTRATION RATE 40.9 (>49); MB/CK RELATIVE INDEX 4.7 (< OR =4); POTASSIUM SERUM 4.5 MEQ/L (3.5-5.1); TOTAL PROTEIN 6.3 GM/DL (6.4-8.2); TROPONIN I 0.67 NG/ML (< 0.10)
[2018-10-29 23:59] LABS: INR 1.53; PROTHROMBIN TIME 18.1 SECONDS (11.8-14.0)
[2018-10-30] VITALS (8 sets, daily range): BP systolic 97–147; BP diastolic 50–82
[2018-10-30] MEDS ORDERED: PIPERACILLIN/TAZOBACTAM SOD 3.375 GM in D5W MINI-BAG PLUS 50 ML IV ONE (00:15)
[2018-10-30] MEDS ORDERED: VANCOMYCIN HCL 1,000 MG, VIAL MATE ADAPTER 1 EACH in D5W 250 ML IV ONE (00:15)
[2018-10-30] MEDS ORDERED: GUAI100S51 PO (00:33)
[2018-10-30] MEDS ORDERED: ALB2.5NEB INH (00:33)
[2018-10-30] MEDS ORDERED: DEXT75EL PO (00:33)
[2018-10-30] MEDS ORDERED: LEVO500T3 PO (00:33)
--- NOTE | 2018-10-30 00:34 | REPVR ---
EXAM: CT Chest Without Contrast EXAM DATE/TIME: 10/29/2018 11:52 PM CLINICAL HISTORY: 68 years old, male; Other: Hypoxia TECHNIQUE: Imaging protocol: Computed tomography of the chest without contrast. 3D rendering: MIP reconstructed images were created and reviewed. Radiation optimization: All CT scans at this facility use at least one of these dose optimization techniques: automated exposure control; mA and/or kV adjustment per patient size (includes targeted exams where dose is matched to clinical indication); or iterative reconstruction. COMPARISON: CR Chest, 1 view 10/29/2018 10:41 PM FINDINGS: Lungs: Airspace consolidations in the bilateral dependent lower lobes significantly larger on the right. Aspirated material in the bronchus intermedius and right lower lobe bronchus. Partially atelectatic right middle lobe. Pleural space: Unremarkable. No pneumothorax. No pleural effusion. Heart: Unremarkable. No cardiomegaly. No pericardial effusion. Aorta: Unremarkable. No aortic aneurysm. Lymph nodes: Mildly enlarged right lower paratracheal and subcarinal lymph nodes. Bones/joints: Degenerative changes in the bilateral shoulders. Diffuse skeletal hyperostosis of the thoracic spine. Soft tissues: Unremarkable. Spleen: Calcified granulomata in the spleen. IMPRESSION: 1. Airspace consolidations in the bilateral dependent lower lobes significantly larger on the right. 2. Aspirated material in the bronchus intermedius and right lower lobe bronchus. Electronically signed by: Jorge Luis Hogan On 10/30/2018 00:33:45 AM
[2018-10-30] MEDS ORDERED: CVS100LI4 PO (00:36)
[2018-10-30] MEDS ORDERED: VALPROATE SOD INJ 500 MG in D5W 50 ML IV SCH (01:00)
[2018-10-30] MEDS ORDERED: D5W 1,000 ML IV SCH (01:00)
[2018-10-30] MEDS: ALBUTEROL SULFATE 2.5 MG/0.5 ML INH NEB SOLN NEB SCH ×4 (02:00→19:36)
[2018-10-30] MEDS ORDERED: FUROSEMIDE 40 MG/4 ML VIAL (J1940) IV ONE (02:30)
--- NOTE | 2018-10-30 03:15 | HPEPDOC ---
General Date of Admission Oct 30, 2018 at 00:47 Date of Service: Oct 30, 2018 Chief Complaint The patient is a 68-year-old male admitted with a reason for visit of Acute Respiratory Failure With Hypoxia. Source: RN/MD, Old records, [facility] Caregiver/Aid Exam Limitations: Mild cognitive slowing Severity: Severe Associated Symptoms: Cough, Shortness of breath, Weakness History of Present Illness This a 68 year old male [facility] of [facility], [facility] resident, with Moderate intellectual disability, schizophrenia was admitted here from to 10/20 for [place] palsy. After discharge from here he developed coughing and wheezing so was taken to [facility] on 10/21 there was diagnosed with pneumonia in the ED and discharged from ED with 10 days of levofloxacin and albuterol. This the discharge from here staff at [facility] have been noticing increasing difficulty in swallowing, coughing after eating also he has been very weak and unable to ambulate much where as normally he is ambulatory stands against the wall for hours at a time. Today his wheezing was much worse and was having coughing spells. he was give frequent nebs. Had real difficulty with his dinner and evening meds at 7: 30 pm with drooling out off the yogurt wit which the meds were being given. Staff checked his Spo2 around 9 pm and found it to be 82% in room air so was Brought to the ED. In the ED he was found to be hypoxic to 78% in room air . As per ED physician he was briefly Put on BIPAP then CPAP with improvement in his oxygenation. CT chest showed 1. Airspace consolidations in the bilateral dependent lower lobes significantly larger on the right. 2. Aspirated material in the bronchus intermedius and right lower lobe bronchus. He was admitted for Bilateral Aspiration pneumonia and acute respiratory failure with hypoxia. Home Medications Scheduled Cholecalciferol (Vitamin D3) (Vitamin D3) 2,000 Unit Cap, 2,000 UNIT PO DAILY, (Reported) Divalproex Sodium (Divalproex Sodium ER) 250 Mg Tab, 250 MG PO QHS, (Reported) Divalproex Sodium (Divalproex Sodium ER) 500 Mg Tab, 500 MG PO DAILY, (Reported) Docusate Sodium (Docusate Sodium) 100 Mg Capsule, 100 MG PO BID, (Reported) Doxycycline Monohydrate (Doxycycline Monohydrate) 50 Mg Capsule, 50 MG PO DAILY, (Reported) HELD FOR LEVOFLOXACIN TREATMENT (STARTING 10/22/18) Levofloxacin (Levofloxacin) 500 Mg Tablet, 500 MG PO DAILY, (Reported) STARTED 10/22/18 FOR 9 DAYS (LAST DOSE 10/30/18) Lorazepam (Ativan) 2 Mg Tab, 2 MG PO QID, (Reported) Magnesium Hydroxide (Milk of Magnesia) 400 Mg/5 Ml Oral.susp, 30 ML PO QHS, (Reported) Quetiapine Fumarate (Seroquel) 50 Mg Tab, 50 MG PO DAILY, (Reported) Quetiapine Fumarate (Quetiapine Fumarate ER) 200 Mg Tab.er.24h, 200 MG PO QHS, (Reported) Ranitidine HCl (Ranitidine HCl) 75 Mg Tablet, 1 TAB PO QHS, (Reported) Risperidone (Risperdal) 3 Mg Tab, 3 MG PO BID, (Reported) Trazodone HCl (Trazodone HCl) 50 Mg Tab, 50 MG PO QHS, (Reported) Vitamin E (Vitamin E) 400 Unit Capsule, 400 UNIT PO DAILY, (Reported) Scheduled PRN Albuterol Sulfate (Albuterol Sulfate) 2.5 Mg/0.5 Ml Vial.neb, 2.5 MG INH Q4H PRN for SOB/WHEEZING, (Reported) Guaifenesin (Tussin) 100 Mg/5 Ml Liquid, 200 MG PO Q4H PRN for COUGH, (Reported) Allergies Coded Allergies: fentanyl (Verified Allergy, Intermediate, photosensitivity, 10/19/18) Past Medical History Medical History BELLS PALSY PNEUMONIA ON 10/21 CHRONIC DYSPHAGIA ON MODIFIED DIET GROUND FOOD WITH HONEY THICK LIQUIDS HISTORY OF COMPLETE HEART BLOCK/SYMPTOMATIC BRADYCARDIA (HR 20)DURING ROUTINE EGD/COLONOSCOPY MODERATE INTELLECTUAL DISABILITY SCHIZOPHRENIA WITH AGGRESSIVE BEHAVIOR HISTORY OF H. PYLORI-TREATED 05/2009/04/2010 NEGATIVE SEROLOGY IMPAIRED FASTING GLUCOSE CHRONIC DENTAL CARIES GERD- NORMAL EGD CHRONIC KIDNEY DISEASE, STAGE 3 Surgical History 8 TEETH EXTRACTED UNDER GENERAL ANESTHESIA-DR. ZENOBIA DURHAM DDS-[facility] 03/12/15 Family History FATHER: UNKNOWN-MAY HAVE BEEN STAFF OR RESIDENT OF [facility] MOTHER: , RESIDENT OF [facility] A-FIB/CHADSVASC A-FIB History Current/History of A-Fib/PAF?: No Review of Systems Constitutional: Reports: Weakness; Denies: Chills, Fever, Night Sweats Eyes: Denies: Pain, Vision change ENT: Reports: Dysphagia; Denies: Head Aches, Ear Pain Skin: Denies: Rash, Jaundice, Bruising Pulmonary: Reports: Dyspnea, Cough Cardiovascular: Reports: Edema Gastrointestinal: Denies: Nausea, Vomiting, Abdominal Pain, Diarrhea Genitourinary: Denies: Dysuria, Frequency, Incontinence, Retention Hematologic: Denies: Bruising, Bleeding Excessively Physical Examination General Exam: Positive: Alert, Cooperative, Mild Distress Eye Exam: Positive: PERRLA, Conjunctiva & lids normal, EOMI, Ptosis (right eyelid); Negative: Sclera icteric ENT Exam: Positive: Atraumatic, Mucous membr. moist/pink, Pharynx Normal, Other ENT (right facial droop) Neck Exam: Positive: Supple; Negative: thyromegaly Chest Exam: Positive: Rhonchi, Wheezing, Other (bilateral basal crackles.) Heart Exam: Positive: Rate Normal, Regular Rhythm, Normal S1, Normal S2; Negative: Murmurs, Rubs Telemetry: Positive: No significant arrhythmia Abdomen Exam: Positive: Normal bowel sounds, Soft; Negative: Tenderness, Hepatospenomegaly Extremity Exam: Positive: Edema (4 + edema bipedal), Swelling Skin Exam: Positive: Nl turgor and temperature Vital Signs Vital Signs Date Time Temp Pulse Resp B/P (MAP) Pulse Ox O2 Delivery O2 Flow Rate FiO2 10/30/18 01:30 87 147/71 (96) 98 10/30/18 00:30 High Flow Cannula 10/30/18 00:11 40.0 100 10/29/18 22:51 97.6 27 Laboratory Data Labs 24H Laboratory Tests 2 10/29/18 22:47: POC pH (Misc Panel) 7.388, POC Base Excess (Misc Panel) 2.0, POC Saturated Percent O2 (Misc) 93L, POC pO2 (Misc Panel) 68.0L, POC pCO2 (Misc Panel) 44.4, POC HCO3 (Misc Panel) 26.7H, POC Total CO2 (Misc Panel) 28.0H 10/29/18 23:06: POC Total CO2 (Misc Panel) 30.0H, POC Glucose (Misc Panel) 148H, POC Sodium (Misc Panel) 149H, POC Potassium (Misc Panel) 4.1, POC Chloride (Misc Panel) 1 10H, POC Blood Urea Nitrogen (Misc Panel 58H, POC Ionized Calcium (Misc Panel) 4.3L, POC Creatinine (Misc Panel) 1.8H, POC Hematocrit (Misc Panel) 38.0 10/29/18 23:07: Immature Granulocyte % (Auto) , White Blood Count 20.6H, Red Blood Count 4.03L, Hemoglobin 12.4L, Hematocrit 38.6L, Mean Corpuscular Volume 95.8, Mean Corpuscular Hemoglobin 30.8, Mean Corpuscular Hemoglobin Concent 32.1, Red Cell Distribution Width 14.9H, Platelet Count 372, Monocytes # (Auto) , Nucleated Red Blood Cells % (auto) 0.0, Neutrophils 61, Band Neutrophils 9, Lymphocytes (Manual) 13L, Monocytes (Manual) 14H, Atypical Lymphocytes 3, Platelet Estimate NORMAL, Polychromasia 1+, Anisocytosis 1+, Anion Gap 9, Glomerular Filtration Rate 40.9L, Lactic Acid Level 4.4*H, Calcium Level 8.4L, Aspartate Amino Transf (AST/SGOT) 75H, Alanine Aminotransferase (ALT/SGPT) 48, Alkaline Phosphatase 161H, Total Bilirubin 0.4, Direct Bilirubin 0.2, Total Creatine Kinase 202, Creatine Kinase MB 9.5H, Creatine Kinase MB Relative Index 4.70H, Troponin I 0.67H, QR-Mpm-F-Type Natriuretic Peptide 325H, Total Protein 6.3L, Albumin 1.7L, Albumin/Globulin Ratio 0.37L 10/29/18 23:10: POC Lactate (Misc Panel) 3.83*H 10/29/18 23:14: Bedside Prothrombin Time INR 2.8, Prothrombin Time (MISC) 32.4H 10/29/18 23:24: Prothrombin Time 18.1H, Prothromb Time International Ratio 1.53 10/30/18 01:12: POC pH (Misc Panel) 7.412, POC Base Excess (Misc Panel) 5.0H, POC Saturated Percent O2 (Misc) 96, POC pO2 (Misc Panel) 84.0, POC pCO2 (Misc Panel) 46.5H, POC HCO3 (Misc Panel) 29.6H, POC Total CO2 (Misc Panel) 31.0H CBC/BMP Laboratory Tests 10/29/18 23:07 Red Blood Count 4.03 L, Mean Corpuscular Volume 95.8, Mean Corpuscular Hemoglobin 30.8, Mean Corpuscular Hemoglobin Concent 32.1, Red Cell Distribution Width 14.9 H, Monocytes # (Auto) Microbiology Microbiology 10/29/18 Blood Culture, Received Pending 10/29/18 Blood Culture, Received Pending Assessment/Plan This a 68 year old male [facility] of [facility], [facility] resident, with Moderate intellectual disability, schizophrenia was admitted here from to 10/20 for [place] palsy. After discharge from here he developed coughing and wheezing so was taken to [facility] on 10/21 there was diagnosed with pneumonia in the ED and discharged from ED with 10 days of levofloxacin and albuterol. This the discharge from here staff at [facility] have been noticing increasing difficulty in swallowing, coughing after eating also he has been very weak and unable to ambulate much where as normally he is ambulatory stands against the wall for hours at a time. Today his wheezing was much worse and was having coughing spells. he was give frequent nebs. Had real difficulty with his dinner and evening meds at 7: 30 pm with drooling out off the yogurt wit which the meds were being given. Staff checked his Spo2 around 9 pm and found it to be 82% in room air so was Brought to the ED. In the ED he was found to be hypoxic to 78% in room air . As per ED physician he was briefly Put on BIPAP then CPAP with improvement in his oxygenation. CT chest showed 1. Airspace consolidations in the bilateral dependent lower lobes significantly larger on the right. 2. Aspirated material in the bronchus intermedius and right lower lobe bronchus. He was admitted for Bilateral Aspiration pneumonia and acute respiratory failure with hypoxia. Aspiration pneumonia and sepsis will give Zosyn keep NPO except for meds. IV dex infusion blood cultures ordered. Acute respiratory failure with hypoxia due to bilateral aspiration Pneumonia and CHF I feel there may be some fluid overload and pulmonary vascular congestion will place on high Flow oxygen via vapotherm lasix 1 dose Lactacidosis due to increased work of breathing from pneumonia and CHF and frequent albuterol treatments. will check 4 hour lactate Acute Diastolic CHF probably also high output failure due to sepsis will give a dose of lasix. Hypernatremia due to poor oral free water intake as per staff has been having poor appetite since discharge from hospital and also increased problems with dysphagia will give Dex 5% gtt. HILARY on CKD 3 may be due to CHF exacerbation will give lasix. bladder scan to rule out obstruction and acute urinary retention. Hypoalbuminemia with Albumin of 1.7 with anasarca I think he has moderate protein Calorie malnutrition. his fluid overload is giving him a falsely higher weight. will need swallow evaluation for chronic dysphagia may also end up need a PEG tube. Whether it is feasible or not will have to be evaluated with his history of schizophrenia and moderate intellectual disability he may try to pull it out. Schizophrenia continue home meds GERD continue PPI Plan / VTE VTE Prophylaxis Ordered?: Yes DAHLIA WHATLEY MD Oct 30, 2018 03:15
[2018-10-30] MEDS: PANTOPRAZOLE 40MG INJ (PROTONIX) (C9113) IV SCH ×2 (03:26→21:18)
[2018-10-30 03:40] LABS: BASO # 0.2 10^3/uL (0.0-0.2); BASO % 0.8 % (0.0-1.0); HEMATOCRIT 38.3 % (42.0-52.0); HEMOGLOBIN 12.5 g/dl (13.5-17.5); LYMPH # 0.6 10^3/uL (1.5-5.0); MEAN CORPUSCULAR HEMOGLOBIN 30.8 pg (27.0-33.0); MEAN CORPUSCULAR HGB CONC 32.6 g/dl (32.0-36.5); MEAN CORPUSCULAR VOLUME 94.3 fl (80.0-96.0); NEUTROPHILS # 16.3 10^3/uL (1.5-8.5); NEUTROPHILS % 81.4 % (36.0-66.0); PLATELET COUNT, AUTOMATED 282 10^3/uL (150-450); RED BLOOD COUNT 4.06 10^6/uL (4.30-6.10)
[2018-10-30 03:56] LABS: CALCIUM LEVEL 8.7 MG/DL (8.8-10.2); CREATININE FOR GFR 1.64 MG/DL (0.70-1.30); GLOMERULAR FILTRATION RATE 44.7 (>49); POTASSIUM SERUM 4.2 MEQ/L (3.5-5.1)
[2018-10-30] MEDS ORDERED: PIPERACILLIN/TAZOBACTAM SOD 3.375 GM in D5W MINI-BAG PLUS 50 ML IV SCH (06:00)
--- NOTE | 2018-10-30 06:41 | ECGEPIP ---
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
[2018-10-30] MEDS ORDERED: SODIUM CHLORIDE 0.9% 3ML NEB SOLUTION FOR INHALATION INH SCH (08:00)
--- NOTE | 2018-10-30 08:59 | IPNPDOC ---
Subjective Date Seen The patient was seen on 10/30/18. Subjective Chief Complaint/HPI ARF with hypoxia Events since last encounter Admitted overnight with aspiration pneumonia. Nursing attempted small amount of water prior to meds and patient had significant coughing requiring suction. Vapotherm in process of weaning down. General: Reports: ROS Unobtainable Objective Physical Examination General Exam: Positive: Mild Distress; Negative: Alert, Cooperative (opens eyes to sternal rub, non-verbal) Eye Exam: Positive: PERRLA, Conjunctiva & lids normal, EOMI, Ptosis (right eyelid); Negative: Sclera icteric ENT Exam: Positive: Atraumatic, Mucous membr. moist/pink, Pharynx Normal, Other ENT (right facial droop) Neck Exam: Positive: Supple; Negative: thyromegaly Chest Exam: Positive: Rhonchi, Wheezing, Other (bilateral basal crackles.) Heart Exam: Positive: Rate Normal, Regular Rhythm, Normal S1, Normal S2; Negative: Murmurs, Rubs Telemetry: Positive: No significant arrhythmia Abdomen Exam: Positive: Normal bowel sounds, Soft; Negative: Tenderness, Hepatospenomegaly Extremity Exam: Positive: Edema (4 + edema bipedal), Swelling Skin Exam: Positive: Nl turgor and temperature Assessment /Plan Problems (1) Hypernatremia Status: Acute Problem Text: baseline NA low 140s c HILARY I 10/30 150 (150) favor 2 dehydration; therefore, /2 NS 80H (2) Oropharyngeal dysphagia Status: Chronic Problem Text: RAP ARTIST on pureed/nectar currently no gag reflex plan bedside eval when improved (3) Acute respiratory failure with hypoxia Status: Acute Problem Text: Stable on HF 40L at 80% (4) Developmental disability Status: Chronic Problem Text: no HCP/legal guardian decisions care per [facility] as of now, FULL CODE status (5) Aspiration pneumonia Status: Acute Problem Text: STRICT NPO. Swallow eval pending. Day #2 Zosyn. WBC 20,000 (6) CKD (chronic kidney disease), stage III Status: Chronic Problem Text: Cr 1.6, baseline 1.0-1.2. IVF ordered for fluid [id number] NS at 100 cc per hour. (7) Altered mental status Status: Acute Problem Text: favor 2 TME (8) Schizophrenia Status: Chronic Problem Text: c ho severe agitation 10/30 given NPO status, DVP changed to IV. traz 50 QHS, ris 3 BID, quet 200 QHS on hold c tory 0.5 q6 IV prn (9) GERD (gastroesophageal reflux disease) Status: Chronic Problem Text: IV Protonix (10) IFG (impaired fasting glucose) Status: Chronic Problem Text: [id number] 6.0 09/2018 Plan/VTE VTE Prophylaxis Ordered?: Yes VS, I&O, 24H, Fishbone Vital Signs/I&O Vital Signs Date Time Temp Pulse Resp B/P (MAP) Pulse Ox O2 Delivery O2 Flow Rate FiO2 10/30/18 08:02 96 40.0 80 10/30/18 04:00 96.9 79 18 113/65 (81) 10/30/18 00:30 High Flow Cannula I&O- Last 24 Hours up to 6 AM 10/30/18 06:00 Intake Total 525 ml Balance 525 ml Laboratory Data 24H LABS Laboratory Tests 2 10/29/18 22:47: POC pH (Misc Panel) 7.388, POC Base Excess (Misc Panel) 2.0, POC Saturated Percent O2 (Misc) 93L, POC pO2 (Misc Panel) 68.0L, POC pCO2 (Misc Panel) 44.4, POC HCO3 (Misc Panel) 26.7H, POC Total CO2 (Misc Panel) 28.0H 10/29/18 23:06: POC Total CO2 (Misc Panel) 30.0H, POC Glucose (Misc Panel) 148H, POC Sodium (Misc Panel) 149H, POC Potassium (Misc Panel) 4.1, POC Chloride (Misc Panel) 110H, POC Blood Urea Nitrogen (Misc Panel 58H, POC Ionized Calcium (Misc Panel) 4.3L, POC Creatinine (Misc Panel) 1.8H, POC Hematocrit (Misc Panel) 38.0 10/29/18 23:07: Immature Granulocyte % (Auto) , White Blood Count 20.6H, Red Blood Count 4.03L, Hemoglobin 12.4L, Hematocrit 38.6L, Mean Corpuscular Volume 95.8, Mean Corpuscular Hemoglobin 30.8, Mean Corpuscular Hemoglobin Concent 32.1, Red Cell Distribution Width 14.9H, Platelet Count 372, Monocytes # (Auto) , Nucleated Red Blood Cells % (auto) 0.0, Neutrophils 61, Band Neutrophils 9, Lymphocytes (Manual) 13L, Monocytes (Manual) 14H, Atypical Lymphocytes 3, Platelet Estimate NORMAL, Polychromasia 1+, Anisocytosis 1+, Anion Gap 9, Glomerular Filtration Rate 40.9L, Lactic Acid Level 4.4*H, Calcium Level 8.4L, Aspartate Amino Transf (AST/SGOT) 75H, Alanine Aminotransferase (ALT/SGPT) 48, Alkaline Phosphatase 161H, Total Bilirubin 0.4, Direct Bilirubin 0.2, Total Creatine Kinase 202, Creatine Kinase MB 9.5H, Creatine Kinase MB Relative Index 4.70H, Troponin I 0.67H, LW-Wys-Q-Type Natriuretic Peptide 325H, Total Protein 6.3L, Albumin 1.7L, Albumin/Globulin Ratio 0.37L 10/29/18 23:10: POC Lactate (Misc Panel) 3.83*H 10/29/18 23:14: Bedside Prothrombin Time INR 2.8, Prothrombin Time (MISC) 32.4H 10/29/18 23:24: Prothrombin Time 18.1H, Prothromb Time International Ratio 1.53 10/30/18 01:12: POC pH (Misc Panel) 7.412, POC Base Excess (Misc Panel) 5.0H, POC Saturated Percent O2 (Misc) 96, POC pO2 (Misc Panel) 84.0, POC pCO2 (Misc Panel) 46.5H, POC HCO3 (Misc Panel) 29.6H, POC Total CO2 (Misc Panel) 31.0H 10/30/18 03:34: Immature Granulocyte % (Auto) 4.8H, White Blood Count 20.0H, Red Blood Count 4.06L, Hemoglobin 12.5L, Hematocrit 38.3L, Mean Corpuscular Volume 94.3, Mean Corpuscular Hemoglobin 30.8, Mean Corpuscular Hemoglobin Concent 32.6, Red Cell Distribution Width 15.1H, Platelet Count 282, Neutrophils (%) (Auto) 81.4H, Lymphocytes (%) (Auto) 3.0L, Monocytes (%) (Auto) 10.0H, Eosinophils (%) (Auto) 0.0, Basophils (%) (Auto) 0.8, Neutrophils # (Auto) 16.3H, Lymphocytes # (Auto) 0.6L, Monocytes # (Auto) 2.0H, Eosinophils # (Auto) 0.0, Basophils # (Auto) 0.2, Nucleated Red Blood Cells % (auto) 0.0, Anion Gap 6L, Glomerular Filtration Rate 44.7L, Lactic Acid Followup at 4 Hours 3.8*H, Blood Urea Nitrogen 64H, Creatin ine 1.64H, Sodium Level 149H, Potassium Level 4.2, Chloride Level 111H, Carbon Dioxide Level 32, Calcium Level 8.7L CBC/BMP Laboratory Tests 10/29/18 23:07 Red Blood Count 4.03 L, Mean Corpuscular Volume 95.8, Mean Corpuscular Hemoglobin 30.8, Mean Corpuscular Hemoglobin Concent 32.1, Red Cell Distribution Width 14.9 H, Monocytes # (Auto) 10/30/18 03:34 Red Blood Count 4.06 L, Mean Corpuscular Volume 94.3, Mean Corpuscular Hemoglobin 30.8, Mean Corpuscular Hemoglobin Concent 32.6, Red Cell Distribution Width 15.1 H, Monocytes # (Auto) 2.0 H, Neutrophils (%) (Auto) 81.4 H, Lymphocytes (%) (Auto) 3.0 L, Monocytes (%) (Auto) 10.0 H, Eosinophils (%) (A uto) 0.0, Basophils (%) (Auto) 0.8, Neutrophils # (Auto) 16.3 H, Lymphocytes # (Auto) 0.6 L, Eosinophils # (Auto) 0.0, Basophils # (Auto) 0.2, Calcium Level 8.7 L Microbiology Microbiology 10/29/18 Blood Culture, Received Pending 10/29/18 Blood Culture, Received Pending Nuria Guzman Oct 30, 2018 08:59 Timmy Nesbitt M.D. Oct 30, 2018 16:10
[2018-10-30] MEDS ORDERED: LORazepam 2 MG TAB PO SCH (09:00)
[2018-10-30] MEDS ORDERED: LORazepam 2 MG/ML VIAL (J2060) IV SCH (09:00)
[2018-10-30] MEDS: QUEtiapine FUMARATE 50 MG TAB PO SCH (09:00)
[2018-10-30] MEDS ORDERED: DIVALPROEX 500MG *ER* TAB PO SCH (09:00)
[2018-10-30] MEDS ORDERED: D5W/0.45% SODIUM CHLORIDE 1,000 ML IV SCH (09:00)
[2018-10-30] MEDS: risperiDONE 3 MG TAB PO SCH ×2 (09:00→20:05)
--- NOTE | 2018-10-30 09:03 | REP ---
Clinical: Shortness of breath . Comparison: 10/19/2018 . Findings: The mediastinum and cardiac silhouette are stable and within normal limits for portable technique. The lung lindsay are clear without acute consolidation, effusion, or pneumothorax. Skeletal structures are intact. Impression: No acute cardiopulmonary process appreciated. Electronically Signed by Castillo Ahuja MD 10/30/2018 08:54 A
[2018-10-30] MEDS: VALPROATE SOD INJ 500 MG in D5W MINI-BAG PLUS 50 ML IV SCH (09:28)
[2018-10-30] MEDS: HEPARIN SOD (PORCINE) 5000 UNITS/ML VIAL SC SCH ×2 (09:28→21:18)
[2018-10-30 09:40] LABS: BASO # 0.1 10^3/uL (0.0-0.2); BASO % 0.3 % (0.0-1.0); HEMOGLOBIN 11.7 g/dl (13.5-17.5); LYMPH # 0.8 10^3/uL (1.5-5.0); LYMPH % 3.8 % (24.0-44.0); MEAN CORPUSCULAR HEMOGLOBIN 29.8 pg (27.0-33.0); MEAN CORPUSCULAR HGB CONC 32.5 g/dl (32.0-36.5); MEAN CORPUSCULAR VOLUME 91.6 fl (80.0-96.0); MONO # 1.7 10^3/uL (0.0-0.8); MONO % 8.4 % (0.0-5.0); NEUTROPHILS # 16.8 10^3/uL (1.5-8.5); NEUTROPHILS % 83.2 % (36.0-66.0); PLATELET COUNT, AUTOMATED 341 10^3/uL (150-450); RED BLOOD COUNT 3.93 10^6/uL (4.30-6.10); WHITE BLOOD COUNT 20.3 10^3/uL (4.0-10.0)
[2018-10-30 09:58] LABS: ALBUMIN 1.4 GM/DL (3.2-5.2); BILIRUBIN,TOTAL 0.4 MG/DL (0.2-1.0); CALCIUM LEVEL 7.9 MG/DL (8.8-10.2); CREATININE FOR GFR 1.59 MG/DL (0.70-1.30); GLOMERULAR FILTRATION RATE 46.3 (>49); TOTAL PROTEIN 5.6 GM/DL (6.4-8.2)
[2018-10-30] MEDS: PIPERACILLIN/TAZOBACTAM SOD 3.375 GM in D5W MINI-BAG PLUS 50 ML IV SCH ×2 (12:32→17:03)
[2018-10-30] MEDS: SODIUM CHLORIDE HYPERTONIC 3% 15ML NEB SOL INH SCH ×2 (14:06→19:36)
[2018-10-30] MEDS ORDERED: SLF 3 ML SYR IV PRN (15:15)
[2018-10-30] MEDS: NS 0.45% 1,000 ML IV SCH (17:02)
[2018-10-30] MEDS: HALOPERIDOL 5 MG/ML VIAL (J1630) IV SCH ×2 (17:32→21:18)
[2018-10-30] MEDS: LORazepam 2 MG/ML VIAL (J2060) IV PRN (18:23)
[2018-10-30] MEDS: traZODone 50 MG TAB PO SCH (20:04)
[2018-10-30] MEDS: QUEtiapine FUMARATE **XR** 200MG TABLET PO SCH (20:05)
[2018-10-30] MEDS ORDERED: VALPROATE SOD INJ 250 MG in D5W 50 ML IV SCH (21:00)
[2018-10-30] MEDS ORDERED: DIVALPROEX 250MG *ER* TAB PO SCH (21:00)
[2018-10-30] MEDS: VALPROATE SOD INJ 250 MG in D5W 50 ML IV SCH (21:18)
[2018-10-30] MEDS: SLF 3 ML SYR IV SCH (21:19)
[2018-10-31] VITALS (15 sets, daily range): BP systolic 98–162; BP diastolic 47–67; O2SAT 91–96
[2018-10-31] MEDS: PIPERACILLIN/TAZOBACTAM SOD 3.375 GM in D5W MINI-BAG PLUS 50 ML IV SCH ×4 (00:07→17:34)
[2018-10-31] MEDS: SODIUM CHLORIDE HYPERTONIC 3% 15ML NEB SOL INH SCH ×4 (01:19→20:11)
[2018-10-31] MEDS: ALBUTEROL SULFATE 2.5 MG/0.5 ML INH NEB SOLN NEB SCH ×4 (01:20→20:11)
[2018-10-31] MEDS: NS 0.45% 1,000 ML IV SCH (01:38)
[2018-10-31] MEDS: SLF 3 ML SYR IV SCH ×3 (01:39→20:13)
[2018-10-31 05:42] LABS: HEMATOCRIT 35.7 % (42.0-52.0); HEMOGLOBIN 11.8 g/dl (13.5-17.5); MEAN CORPUSCULAR HEMOGLOBIN 30.1 pg (27.0-33.0); MEAN CORPUSCULAR HGB CONC 33.1 g/dl (32.0-36.5); MEAN CORPUSCULAR VOLUME 91.1 fl (80.0-96.0); PLATELET COUNT, AUTOMATED 387 10^3/uL (150-450); RED BLOOD COUNT 3.92 10^6/uL (4.30-6.10); WHITE BLOOD COUNT 17.8 10^3/uL (4.0-10.0)
[2018-10-31 06:06] LABS: CALCIUM LEVEL 8.5 MG/DL (8.8-10.2); CREATININE FOR GFR 1.48 MG/DL (0.70-1.30); GLOMERULAR FILTRATION RATE 50.3 (>49); POTASSIUM SERUM 4.4 MEQ/L (3.5-5.1); VALPROIC ACID (DEPAKOTE) 67.8 UG/ML (50.0-100.0)
[2018-10-31 06:08] LABS: ABG BASE EXCESS 5.8 (-2.0-2.0); ABG HCO3 29.9 MEQ/L (22.0-26.0); ABG O2 SATURATION 98.3 % (95.0-99.0); ABG PARTIAL PRESSURE CO2 41.9 mmHg (35.0-45.0); ABG PARTIAL PRESSURE O2 114.8 mmHg (75.0-100.0); ABG STANDARD HCO3 29.7 MEQ/L (22.0-26.0); ABG TOTAL CO2 31.2 MEQ/L (23.0-31.0); ABG pH (ARTERIAL) 7.472 UNITS (7.350-7.450)
[2018-10-31 06:16] LABS: ANISOCYTOSIS 1+; LYMPHOCYTES 12 % (16-44); METAMYELOCYTES 2 % (0-0); MONOCYTES 13 % (0-5); MYELOCYTES 1 % (0-0); NEUTROPHILS 72 % (28-66); PLATELET ESTIMATE NORMAL (NORMAL)
[2018-10-31 06:17] LABS: POLYCHROMASIA 1+
[2018-10-31] MEDS: QUEtiapine FUMARATE 50 MG TAB PO SCH (08:39)
[2018-10-31] MEDS: risperiDONE 3 MG TAB PO SCH ×2 (08:39→20:12)
[2018-10-31] MEDS: HEPARIN SOD (PORCINE) 5000 UNITS/ML VIAL SC SCH ×2 (09:03→20:30)
[2018-10-31] MEDS: HALOPERIDOL 5 MG/ML VIAL (J1630) IV SCH ×3 (09:03→20:12)
[2018-10-31] MEDS: VALPROATE SOD INJ 500 MG in D5W MINI-BAG PLUS 50 ML IV SCH (09:03)
--- NOTE | 2018-10-31 09:11 | IPNPDOC ---
Subjective Date Seen The patient was seen on 10/31/18. Subjective Chief Complaint/HPI aspiration, ARF Events since last encounter Patient had significant desaturation overnight with increase of vapotherm use. General: Reports: ROS Unobtainable Objective Physical Examination General Exam: Positive: Mild Distress; Negative: Alert, Cooperative (opens eyes to sternal rub, non-verbal) Eye Exam: Positive: PERRLA, Conjunctiva & lids normal, EOMI, Ptosis (right eyelid); Negative: Sclera icteric ENT Exam: Positive: Atraumatic, Mucous membr. moist/pink, Pharynx Normal, Other ENT (right facial droop) Neck Exam: Positive: Supple; Negative: thyromegaly Chest Exam: Positive: Rhonchi, Wheezing, Other (bilateral basal crackles.) Heart Exam: Positive: Rate Normal, Regular Rhythm, Normal S1, Normal S2; Negative: Murmurs, Rubs Telemetry: Positive: No significant arrhythmia Abdomen Exam: Positive: Normal bowel sounds, Soft; Negative: Tenderness, Hepatospenomegaly Extremity Exam: Positive: Edema (4 + edema bipedal), Swelling Skin Exam: Positive: Nl turgor and temperature Assessment /Plan Problems (1) Acute respiratory failure with hypoxia Status: Acute Response to Treatment: Improving Problem Text: 10/31/18 increasing O2 requirement, now at HF 95% at 40L to maintain SaO2>94%; lane whaley [facility] Director that as patient's PCP for 15 years, would recommend DNR/DNI status-MOLST completed accordingly and gave to [facility] insurance representative at bedside. Mr. Wynne stated that he would "expedite" the process, but that "nothing would happen tonight". He would present the case to the [facility] and [facility] Board in AM, then would need concurring and Dr. Salazar to sign off. 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 There is chronic microvascular disease. 2. No acute intracranial lesion or injury. 1. Probable small, less than 2 mm on the left and left and 1 mm on the right, bilateral posterior communicating artery infundibula. No definite aneurysm. 2. No intracranial stenosis or occlusion. 10/19/18 TTE: 1. Normal left ventricle internal dimensions and wall thickness. Normal regional LV wall motion and wall thickening. Normal LV systolic function. Grade 1 LV diastolic dysfunction. 2. Otherwise normal echocardiogram Doppler findings. (4) Developmental disability Status: Chronic Problem Text: no HCP/legal guardian decisions care per [facility] as of now, FULL CODE status (5) Aspiration pneumonia Status: Acute Problem Text: D3 pip/lizeth remains NPO/asp precautions 10/29 CT chest: 1. Airspace consolidations in the bilateral dependent lower lobes significantly larger on the right. 2. Aspirated material in the bronchus intermedius and right lower lobe bronchus. (6) CKD (chronic kidney disease), stage III Status: Chronic Problem Text: Cr 1.6, baseline 1.0-1.2. IVF ordered for fluid [id number] NS at 100 cc per hour. (7) Schizophrenia Status: Chronic Problem Text: c ho severe agitation 10/30 given NPO status, DVP changed to IV. traz 50 QHS, ris 3 BID, quet 200 QHS on hold c tory 0.5 q6 IV prn and + halo 0.5 IV q6H (hold for sedation) (8) GERD (gastroesophageal reflux disease) Status: Chronic Problem Text: IV Protonix (9) IFG (impaired fasting glucose) Status: Chronic Problem Text: [email or web address] 6.0 09/2018 Plan/VTE VTE Prophylaxis Ordered?: Yes VS, I&O, 24H, Fishbone Vital Signs/I&O Vital Signs Date Time Temp Pulse Resp B/P (MAP) Pulse Ox O2 Delivery O2 Flow Rate FiO2 10/31/18 08:00 98.4 92 18 127/61 (83) 98 40.0 10/31/18 06:08 100 10/31/18 06:00 Nasal Cannula I&O- Last 24 Hours up to 6 AM 10/31/18 06:00 Intake Total 1275 ml Output Total 0 ml Balance 1275 ml Laboratory Data 24H LABS Laboratory Tests 2 10/30/18 09:16: Immature Granulocyte % (Auto) 4.3H, White Blood Count 20.3H, Red Blood Count 3.93L, Hemoglobin 11.7L, Hematocrit 36.0L, Mean Corpuscular Volume 91.6, Mean Corpuscular Hemoglobin 29.8, Mean Corpuscular Hemoglobin Concent 32.5, Red Cell Distribution Width 15.1H, Platelet Count 341, Neutrophils (%) (Auto) 83.2H, L ymphocytes (%) (Auto) 3.8L, Monocytes (%) (Auto) 8.4H, Eosinophils (%) (Auto) 0.0, Basophils (%) (Auto) 0.3, Neutrophils # (Auto) 16.8H, Lymphocytes # (Auto) 0.8L, Monocytes # (Auto) 1.7H, Eosinophils # (Auto) 0.0, Basophils # (Auto) 0.1, Nucleated Red Blood Cells % (auto) 0.0, Anion Gap 7L, Glomerular Filtration Rate 46.3L, Blood Urea Nitrogen 65H, Creatinine 1.59H, Sodium Level 150H, Potassium L evel 4.0, Chloride Level 111H, Carbon Dioxide Level 32, Calcium Level 7.9L, Aspartate Amino Transf (AST/SGOT) 50H, Alanine Aminotransferase (ALT/SGPT) 38, Alkaline Phosphatase 125H, Total Bilirubin 0.4, Total Protein 5.6L, Albumin 1.4L, Albumin/Globulin Ratio 0.33L 10/31/18 05:28: Immature Granulocyte % (Auto) , White Blood Count 17.8H, Red Blood Count 3.92L, Hemoglobin 11.8L, Hematocrit 35.7L, Mean Corpuscular Volume 91.1, Mean Corpuscular Hemoglobin 30.1, Mean Corpuscular Hemoglobin Concent 33.1, Red Cell Distribution Width 15.2H, Platelet Count 387, Monocytes # (Auto) , Nucleated Red Blood Cells % (auto) 0.2H, Anion Gap 5L, Glomerular Filtration Rate 50.3, Blood Urea Nitrogen 57H, Creatinine 1.48H, Sodium Level 153H, Potassium Level 4.4, Chloride Level 113H, Carbon Dioxide Level 35H, Calcium Level 8.5L, Neutrophils 72H, Lymphocytes (Manual) 12L, Monocytes (Manual) 13H, Metamyelocytes 2H, Myelocytes 1H, Platelet Estimate NORMAL, Polychromasia 1+, Anisocytosis 1+, Valproic Acid (Depakene) Level 67.8 10/31/18 05:59: Blood Gas Bicarbonate Standard 29.7H, Arterial Blood pH 7.472H, Arterial Blood Partial Pressure CO2 41.9, Arterial Blood Partial Pressure O2 114.8H, Arterial Blood Total CO2 31.2H, Arterial Blood HCO3 29.9H, Arterial Blood Base Excess 5.8H, Arterial Blood Oxygen Saturation 98.3, Arterial Blood Gas Puncture Site UNKNOWN CBC/BMP Laboratory Tests 10/30/18 09:16 Red Blood Count 3.93 L, Mean Corpuscular Volume 91.6, Mean Corpuscular Hemoglobin 29.8, Mean Corpuscular Hemoglobin Concent 32.5, Red Cell Distribution Width 15.1 H, Neutrophils (%) (Auto) 83.2 H, Lymphocytes (%) (Auto) 3.8 L, Monocytes (%) (Auto) 8.4 H, Eosinophils (%) (Auto) 0.0, Basophils (%) (Auto) 0.3, Neutrophils # (Auto) 16.8 H, Lymphocytes # (Auto) 0.8 L, Monocytes # (Auto) 1.7 H, Eosinophils # (Auto) 0.0, Basophils # (Auto) 0.1, Calcium Level 7.9 L, Aspartate Amino Transf (AST/SGOT) 50 H, Alanine Aminotransferase (ALT/SGPT) 38, Alkaline Phosphatase 125 H, Total Bilirubin 0.4, Total Protein 5.6 L, Albumin 1.4 L 10/31/18 05:28 Red Blood Count 3.92 L, Mean Corpuscular Volume 91.1, Mean Corpuscular Hemoglobin 30.1, Mean Corpuscular Hemoglobin Concent 33.1, Red Cell Distribution Width 15.2 H, Monocytes # (Auto) , Calcium Level 8.5 L Microbiology Microbiology 10/29/18 Blood Culture - Preliminary, Resulted No growth after 24 hours . All specim... 10/29/18 Blood Culture - Preliminary, Resulted No growth after 24 hours . All specim... Nuria Guzman Oct 31, 2018 09:10 Timmy Nesbitt M.D. Oct 31, 2018 19:11
[2018-10-31] MEDS: D5W/0.45% SODIUM CHLORIDE 1,000 ML IV SCH ×2 (10:11→20:11)
[2018-10-31 18:26] LABS: ABG BASE EXCESS 8.8 (-2.0-2.0); ABG HCO3 33.2 MEQ/L (22.0-26.0); ABG O2 SATURATION 91.5 % (95.0-99.0); ABG PARTIAL PRESSURE CO2 44.9 mmHg (35.0-45.0); ABG PARTIAL PRESSURE O2 61.9 mmHg (75.0-100.0); ABG STANDARD HCO3 32.4 MEQ/L (22.0-26.0); ABG TOTAL CO2 34.6 MEQ/L (23.0-31.0); ABG pH (ARTERIAL) 7.487 UNITS (7.350-7.450)
[2018-10-31] MEDS: QUEtiapine FUMARATE **XR** 200MG TABLET PO SCH (20:12)
[2018-10-31] MEDS: traZODone 50 MG TAB PO SCH (20:12)
[2018-10-31] MEDS: PANTOPRAZOLE 40MG INJ (PROTONIX) (C9113) IV SCH (20:30)
[2018-10-31] MEDS: VALPROATE SOD INJ 250 MG in D5W 50 ML IV SCH (20:30)
[2018-11-01] VITALS (26 sets, daily range): BP systolic 107–154; BP diastolic 55–73; O2SAT 92–98
[2018-11-01] MEDS: PIPERACILLIN/TAZOBACTAM SOD 3.375 GM in D5W MINI-BAG PLUS 50 ML IV SCH ×4 (00:45→17:16)
[2018-11-01] MEDS: D5W/0.45% SODIUM CHLORIDE 1,000 ML IV SCH ×3 (00:45→21:53)
[2018-11-01] MEDS: ALBUTEROL SULFATE 2.5 MG/0.5 ML INH NEB SOLN NEB SCH ×4 (01:21→19:11)
[2018-11-01] MEDS: SODIUM CHLORIDE HYPERTONIC 3% 15ML NEB SOL INH SCH ×4 (01:21→19:11)
[2018-11-01] MEDS: SLF 3 ML SYR IV SCH ×3 (05:25→21:36)
[2018-11-01 05:59] LABS: BASO # 0.1 10^3/uL (0.0-0.2); BASO % 0.8 % (0.0-1.0); EOS % 0.1 % (0.0-3.0); HEMATOCRIT 36.2 % (42.0-52.0); HEMOGLOBIN 11.7 g/dl (13.5-17.5); LYMPH # 0.7 10^3/uL (1.5-5.0); LYMPH % 4.1 % (24.0-44.0); MEAN CORPUSCULAR HEMOGLOBIN 30.2 pg (27.0-33.0); MEAN CORPUSCULAR HGB CONC 32.3 g/dl (32.0-36.5); MEAN CORPUSCULAR VOLUME 93.3 fl (80.0-96.0); MONO % 13.1 % (0.0-5.0); NEUTROPHILS # 13.7 10^3/uL (1.5-8.5); NEUTROPHILS % 77.3 % (36.0-66.0); PLATELET COUNT, AUTOMATED 356 10^3/uL (150-450); RED BLOOD COUNT 3.88 10^6/uL (4.30-6.10); WHITE BLOOD COUNT 17.7 10^3/uL (4.0-10.0)
[2018-11-01 06:07] LABS: MONO # 2.3 10^3/uL (0.0-0.8)
[2018-11-01 06:23] LABS: CALCIUM LEVEL 7.3 MG/DL (8.8-10.2); CREATININE FOR GFR 1.27 MG/DL (0.70-1.30); POTASSIUM SERUM 4.1 MEQ/L (3.5-5.1)
--- NOTE | 2018-11-01 08:58 | IPNPDOC ---
Subjective Date Seen The patient was seen on 11/01/18. Subjective Chief Complaint/HPI ARF with hypoxia Events since last encounter had worsening symptoms requiring increase oxygen via vapotherm yesterday evening. Significant suctioning completed with nursing and respiratory therapy overnight. Improved mentation this am, more alert, holding staff hands. General: Reports: ROS Unobtainable Objective Physical Examination General Exam: Positive: Cooperative (non-verbal, holding staff hands. ), Mild Distress; Negative: Alert Eye Exam: Positive: PERRLA, Conjunctiva & lids normal, EOMI, Ptosis (right eyelid); Negative: Sclera icteric ENT Exam: Positive: Atraumatic, Mucous membr. moist/pink, Pharynx Normal, Other ENT (right facial droop) Neck Exam: Positive: Supple; Negative: thyromegaly Chest Exam: Positive: Rhonchi, Wheezing, Other (bilateral basal crackles.) Heart Exam: Positive: Rate Normal, Regular Rhythm, Normal S1, Normal S2; Negative: Murmurs, Rubs Telemetry: Positive: No significant arrhythmia Abdomen Exam: Positive: Normal bowel sounds, Soft; Negative: Tenderness, Hepatospenomegaly Extremity Exam: Positive: Edema (4 + edema bipedal), Swelling Skin Exam: Positive: Nl turgor and temperature Assessment /Plan Problems (1) Acute respiratory failure with hypoxia Status: Acute Response to Treatment: Progressing Problem Text: 10/31/18 increasing O2 requirement, now at HF 95% at 40L to maintain SaO2>94%; kei whaley [facility] Director that as patient's PCP for 15 years, would recommend DNR/DNI status-MOLST completed accordingly and gave to [facility] field support representative at bedside. Mr. Wynne stated that he would "expedite" the process, but that "nothing would happen tonight". He would present the case to the [facility] and [facility] Board in AM, then would need concurring and Dr. Salazar to sign off. 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 There is chronic microvascular disease. 2. No acute intracranial lesion or injury. 1. Probable small, less than 2 mm on the left and left and 1 mm on the right, bilateral posterior communicating artery infundibula. No definite aneurysm. 2. No intracranial stenosis or occlusion. 10/19/18 TTE: 1. Normal left ventricle internal dimensions and wall thickness. Normal regional LV wall motion and wall thickening. Normal LV systolic function. Grade 1 LV diastolic dysfunction. 2. Otherwise normal echocardiogram Doppler findings. (4) Developmental disability Status: Chronic Problem Text: no HCP/legal guardian decisions care per [facility] as of now, FULL CODE status (5) Aspiration pneumonia Status: Acute Problem Text: D4 pip/lizeth remains NPO/asp precautions 11/01/18: WBC improved at 17,000. 10/29 CT chest: 1. Airspace consolidations in the bilateral dependent lower lobes significantly larger on the right. 2. Aspirated material in the bronchus intermedius and right lower lobe bronchus. (6) CKD (chronic kidney disease), stage III Status: Chronic Problem Text: 11/01/18: Cr. stable at 1.2 Cr 1.6, baseline 1.0-1.2. IVF ordered for fluid [id number] NS at 100 cc per hour. (7) Schizophrenia Status: Chronic Problem Text: c ho severe agitation 10/30 given NPO status, DVP changed to IV. traz 50 QHS, ris 3 BID, quet 200 QHS on hold c tory 0.5 q6 IV prn and + halo 0.5 IV q6H (hold for sedation) (8) GERD (gastroesophageal reflux disease) Status: Chronic Problem Text: IV Protonix (9) IFG (impaired fasting glucose) Status: Chronic Problem Text: [email or web address] 6.0 09/2018 Plan/VTE VTE Prophylaxis Ordered?: Yes VS, I&O, 24H, Fishbone Vital Signs/I&O Vital Signs Date Time Temp Pulse Resp B/P (MAP) Pulse Ox O2 Delivery O2 Flow Rate FiO2 11/01/18 08:00 97.4 81 20 107/55 (72) 97 40.0 11/01/18 06:14 95 11/01/18 06:00 Nasal Cannula I&O- Last 24 Hours up to 6 AM 11/01/18 05:59 Intake Total 1360 ml Output Total 0 ml Balance 1360 ml Laboratory Data 24H LABS Laboratory Tests 2 10/31/18 18:14: Blood Gas Bicarbonate Standard 32.4H, Arterial Blood pH 7.487H, Arterial Blood Partial Pressure CO2 44.9, Arterial Blood Partial Pressure O2 61.9L, Arterial Blood Total CO2 34.6H, Arterial Blood HCO3 33.2H, Arterial Blood Base Excess 8.8H, Arterial Blood Oxygen Saturation 91.5L 11/01/18 05:43: Immature Granulocyte % (Auto) 4.6H, White Blood Count 17.7H, Red Blood Count 3.88L, Hemoglobin 11.7L, Hematocrit 36.2L, Mean Corpuscular Volume 93.3, Mean Corpuscular Hemoglobin 30.2, Mean Corpuscular Hemoglobin Concent 32.3, Red Cell Distribution Width 15.2H, Platelet Count 356, Neutrophils (%) (Auto) 77.3H, Lymphocytes (%) (Auto) 4.1L, Monocytes (%) (Auto) 13.1H, Eosinophils (%) (Auto) 0.1, Basophils (%) (Auto) 0.8, Neutrophils # (Auto) 13.7H, Lymphocytes # (Auto) 0.7L, Monocytes # (Auto) 2.3H, Eosinophils # (Auto) 0.0, Basophils # (Auto) 0.1, Nucleated Red Blood Cells % (auto) 0.1H, Anion Gap 3L, Glomerular Filtration Rate 60.0, Blood Urea Nitrogen 46H, Creatinine 1.27, Sodium Level 155H, Potassium Level 4.1, Chloride Level 117H, Carbon Dioxide Level 35H, Calcium Level 7.3L CBC/BMP Laboratory Tests 11/01/18 05:43 Red Blood Count 3.88 L, Mean Corpuscular Volume 93.3, Mean Corpuscular Hemoglobin 30.2, Mean Corpuscular Hemoglobin Concent 32.3, Red Cell Distribution Width 15.2 H, Neutrophils (%) (Auto) 77.3 H, Lymphocytes (%) (Auto) 4.1 L, Monocytes (%) (Auto) 13.1 H, Eosinophils (%) (Auto) 0.1, Basophils (%) (Auto) 0.8, Neutrophils # (Auto) 13.7 H, Lymphocytes # (Auto) 0.7 L, Monocytes # (Auto) 2.3 H, Eosinophils # (Auto) 0.0, Basophils # (Auto) 0.1, Calcium Level 7.3 L Microbiology Microbiology 10/29/18 Blood Culture - Preliminary, Resulted No Growth after 48 hours. All Specime... 10/29/18 Blood Culture - Preliminary, Resulted No Growth after 48 hours. All Specime... Nuria Guzman [facility] Nov 01, 2018 08:58
[2018-11-01] MEDS: QUEtiapine FUMARATE 50 MG TAB PO SCH (09:00)
[2018-11-01] MEDS: HALOPERIDOL 5 MG/ML VIAL (J1630) IV SCH ×3 (09:00→21:00)
[2018-11-01] MEDS: risperiDONE 3 MG TAB PO SCH ×2 (09:00→21:00)
[2018-11-01] MEDS: VALPROATE SOD INJ 500 MG in D5W MINI-BAG PLUS 50 ML IV SCH (09:23)
[2018-11-01] MEDS: HEPARIN SOD (PORCINE) 5000 UNITS/ML VIAL SC SCH ×2 (09:23→21:36)
[2018-11-01] MEDS: traZODone 50 MG TAB PO SCH (21:00)
[2018-11-01] MEDS: QUEtiapine FUMARATE **XR** 200MG TABLET PO SCH (21:00)
[2018-11-01] MEDS: VALPROATE SOD INJ 250 MG in D5W 50 ML IV SCH (21:36)
[2018-11-01] MEDS: PANTOPRAZOLE 40MG INJ (PROTONIX) (C9113) IV SCH (21:36)
[2018-11-02] VITALS (23 sets, daily range): BP systolic 124–156; BP diastolic 76–86; O2SAT 92–98
[2018-11-02] MEDS: PIPERACILLIN/TAZOBACTAM SOD 3.375 GM in D5W MINI-BAG PLUS 50 ML IV SCH ×4 (00:44→18:13)
[2018-11-02] MEDS: ALBUTEROL SULFATE 2.5 MG/0.5 ML INH NEB SOLN NEB SCH ×4 (02:19→19:57)
[2018-11-02] MEDS: SODIUM CHLORIDE HYPERTONIC 3% 15ML NEB SOL INH SCH ×4 (02:21→19:57)
[2018-11-02] MEDS: D5W/0.45% SODIUM CHLORIDE 1,000 ML IV SCH ×3 (05:25→23:49)
[2018-11-02] MEDS: SLF 3 ML SYR IV SCH ×3 (05:25→21:24)
[2018-11-02 05:43] LABS: HEMATOCRIT 39.9 % (42.0-52.0); HEMOGLOBIN 12.7 g/dl (13.5-17.5); MEAN CORPUSCULAR HEMOGLOBIN 30.2 pg (27.0-33.0); MEAN CORPUSCULAR HGB CONC 31.8 g/dl (32.0-36.5); MEAN CORPUSCULAR VOLUME 94.8 fl (80.0-96.0); PLATELET COUNT, AUTOMATED 338 10^3/uL (150-450); RED BLOOD COUNT 4.21 10^6/uL (4.30-6.10); WHITE BLOOD COUNT 15.5 10^3/uL (4.0-10.0)
[2018-11-02 06:16] LABS: BLOOD UREA NITROGEN 37 MG/DL (7-18); CALCIUM LEVEL 7.8 MG/DL (8.8-10.2); CARBON DIOXIDE LEVEL 33 MEQ/L (21-32); CHLORIDE LEVEL 118 MEQ/L (98-107); GLOMERULAR FILTRATION RATE > 60.0 (>49); GLUCOSE, FASTING 120 MG/DL (70-100); POTASSIUM SERUM 3.6 MEQ/L (3.5-5.1); SODIUM LEVEL 154 MEQ/L (136-145)
[2018-11-02 06:50] LABS: ATYPICAL LYMPH 1 % (0-5); LYMPHOCYTES 6 % (16-44); METAMYELOCYTES 1 % (0-0); MONOCYTES 5 % (0-5); MYELOCYTES 2 % (0-0); NEUTROPHILS 84 % (28-66)
[2018-11-02 06:52] LABS: PLATELET ESTIMATE NORMAL (NORMAL)
[2018-11-02] MEDS: HEPARIN SOD (PORCINE) 5000 UNITS/ML VIAL SC SCH ×2 (08:51→21:23)
[2018-11-02] MEDS: QUEtiapine FUMARATE 50 MG TAB PO SCH (08:52)
[2018-11-02] MEDS: risperiDONE 3 MG TAB PO SCH ×2 (08:52→21:00)
[2018-11-02] MEDS: HALOPERIDOL 5 MG/ML VIAL (J1630) IV SCH ×3 (08:52→21:00)
--- NOTE | 2018-11-02 09:46 | IPNPDOC ---
Subjective Date Seen The patient was seen on 11/02/18. Subjective Chief Complaint/HPI aspiration Events since last encounter Continues to wean off of vapotherm to 25%. mentation slowly improving. Failed re-attempt swallow eval at bedside. remains NPO. General: Reports: ROS Unobtainable Objective Physical Examination General Exam: Positive: Cooperative (non-verbal, holding staff hands. ), No Acute Distress; Negative: Alert Eye Exam: Positive: PERRLA, Conjunctiva & lids normal, EOMI, Ptosis (right eyelid); Negative: Sclera icteric ENT Exam: Positive: Atraumatic, Mucous membr. moist/pink, Pharynx Normal, Other ENT (right facial droop) Neck Exam: Positive: Supple; Negative: thyromegaly Chest Exam: Positive: Rhonchi, Wheezing, Other (bilateral basal crackles.) Heart Exam: Positive: Rate Normal, Regular Rhythm, Normal S1, Normal S2; Negative: Murmurs, Rubs Telemetry: Positive: No significant arrhythmia Abdomen Exam: Positive: Normal bowel sounds, Soft; Negative: Tenderness, Hepatospenomegaly Extremity Exam: Positive: Edema (4 + edema bipedal), Swelling Skin Exam: Positive: Nl turgor and temperature Assessment /Plan Problems (1) Acute respiratory failure with hypoxia Status: Acute Response to Treatment: Progressing Problem Text: 11/02 checklist requesting DNR/DNI completed for [facility] to approve, then for Dr. Salazar to sign. Apparently [facility] has approved PEG placement, but would favor DNR/DNI in place BEFOREHAND, given ho COMPLETE HEART BLOCK with previous colonoscopy. 10/31/18 increasing O2 requirement, now at HF 95% at 40L to maintain SaO2>94%; lane whaley [facility] Director that as patient's PCP for 15 years, would recommend DNR/DNI status-MOLST completed accordingly and gave to [facility] telephone services sales representative at bedside. Qing Wynne stated that he would "expedite" the process, but that "nothing would happen tonight". He would present the case to the [facility] and [facility] Board in AM, then would need concurring and Dr. Salazar to sign off. continue alb 2.5/3% Na q6H 10/31/18 1800 ABG 7.49/62/33/92% (2) Hypernatremia Status: Acute Problem Text: baseline NA low 140s c HILARY I 10/31 153; therefore, increased to 120H-favor increased insensible loss c pers istent free H20 deficit 10/30 150 (150) favor 2 dehydration; therefore, 1/2 NS 80H (3) Oropharyngeal dysphagia Status: Chronic Problem Text: 11/02/18: may need to consider TPN until decision regarding nutrition completed. 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 There is chronic microvascular disease. 2. No acute intracranial lesion or injury. 1. Probable small, less than 2 mm on the left and left and 1 mm on the right, bilateral posterior communicating artery infundibula. No definite aneurysm. 2. No intracranial stenosis or occlusion. 10/19/18 TTE: 1. Normal left ventricle internal dimensions and wall thickness. Normal regional LV wall motion and wall thickening. Normal LV systolic function. Grade 1 LV diastolic dysfunction. 2. Otherwise normal echocardiogram Doppler findings. (4) Developmental disability Status: Chronic Problem Text: no HCP/legal guardian decisions [facility] as of now, FULL CODE status (5) Aspiration pneumonia Status: Acute Problem Text: D5 pip/lizeth remains NPO/asp precautions 11/02/18: WBC continues to improve along with clinical presentation. continue to wean off of oxygen needs. Continue CPT and suctioning. 11/01/18: WBC improved at 17,000. 10/29 CT chest: 1. Airspace consolidations in the bilateral dependent lower lobes significantly larger on the right. 2. Aspirated material in the bronchus intermedius and right lower lobe bronchus. (6) CKD (chronic kidney disease), stage III Status: Chronic Problem Text: 11/01/18: Cr. stable at 1.2 Cr 1.6, baseline 1.0-1.2. IVF ordered for fluid [id number] NS at 100 cc per hour. (7) Schizophrenia Status: Chronic Problem Text: c ho severe agitation 10/30 given NPO status, DVP changed to IV. traz 50 QHS, ris 3 BID, quet 200 QHS on hold c tory 0.5 q6 IV prn and + halo 0.5 IV q6H (hold for sedation) (8) GERD (gastroesophageal reflux disease) Status: Chronic Problem Text: IV Protonix (9) IFG (impaired fasting glucose) Status: Chronic Problem Text: [email or web address] 6.0 09/2018 Plan/VTE VTE Prophylaxis Ordered?: Yes VS, I&O, 24H, Fishbone Vital Signs/I&O Vital Signs Date Time Temp Pulse Resp B/P (MAP) Pulse Ox O2 Delivery O2 Flow Rate FiO2 11/02/18 08:00 97.6 91 18 156/86 (109) 97 45.0 11/02/18 04:00 45 11/01/18 18:00 Nasal Cannula I&O- Last 24 Hours up to 6 AM 11/02/18 06:00 Intake Total 1777.5 ml Output Total 0 ml Balance 1777.5 ml Laboratory Data 24H LABS Laboratory Tests 2 11/02/18 05:23: Immature Granulocyte % (Auto) , Nucleated Red Blood Cells % (auto) 0.0, Neutrophils 84H, Band Neutrophils 1, Lymphocytes (Manual) 6L, Monocytes (Manual) 5, Metamyelocytes 1H, Myelocytes 2H, Atypical Lymphocytes 1, Platelet Estimate NORMAL, Red Blood Cell Morphology NORMAL, Anion Gap 3L, Glomerular Filtration Rate > 60.0, Blood Urea Nitrogen 37H, Creatinine 1.20, Sodium Level 154H, Potassium Level 3.6, Chloride Level 118H, Carbon Dioxide Level 33H, Calcium Level 7.8L CBC/BMP Laboratory Tests 11/02/18 05:23 Red Blood Count 4.21 L, Mean Corpuscular Volume 94.8, Mean Corpuscular Hemoglobin 30.2, Mean Corpuscular Hemoglobin Concent 31.8 L, Red Cell Distribution Width 15.2 H, Calcium Level 7.8 L Microbiology Microbiology 10/29/18 Blood Culture - Preliminary, Resulted No Growth after 72 hours. All specime... 10/29/18 Blood Culture - Preliminary, Resulted No Growth after 72 hours. All specime... Nuria Guzman Nov 02, 2018 09:46 Timmy Nesbitt M.D. Nov 02, 2018 17:03
[2018-11-02] MEDS: VALPROATE SOD INJ 500 MG in D5W MINI-BAG PLUS 50 ML IV SCH (10:00)
[2018-11-02] MEDS: QUEtiapine FUMARATE **XR** 200MG TABLET PO SCH (21:00)
[2018-11-02] MEDS: traZODone 50 MG TAB PO SCH (21:00)
[2018-11-02] MEDS: VALPROATE SOD INJ 250 MG in D5W 50 ML IV SCH (21:23)
[2018-11-02] MEDS: PANTOPRAZOLE 40MG INJ (PROTONIX) (C9113) IV SCH (21:34)
[2018-11-03] VITALS (22 sets, daily range): BP systolic 133–166; BP diastolic 63–82; O2SAT 89–99
[2018-11-03] MEDS: PIPERACILLIN/TAZOBACTAM SOD 3.375 GM in D5W MINI-BAG PLUS 50 ML IV SCH ×4 (00:25→18:18)
[2018-11-03] MEDS: ALBUTEROL SULFATE 2.5 MG/0.5 ML INH NEB SOLN NEB SCH ×4 (01:55→18:39)
[2018-11-03] MEDS: SODIUM CHLORIDE HYPERTONIC 3% 15ML NEB SOL INH SCH ×4 (01:55→18:38)
[2018-11-03] MEDS: SLF 3 ML SYR IV SCH ×3 (05:23→21:15)
[2018-11-03] MEDS: D5W/0.45% SODIUM CHLORIDE 1,000 ML IV SCH ×2 (05:30→15:49)
[2018-11-03 06:06] LABS: BLOOD UREA NITROGEN 32 MG/DL (7-18); CALCIUM LEVEL 7.8 MG/DL (8.8-10.2); CARBON DIOXIDE LEVEL 30 MEQ/L (21-32); CHLORIDE LEVEL 119 MEQ/L (98-107); CREATININE FOR GFR 1.14 MG/DL (0.70-1.30); GLOMERULAR FILTRATION RATE > 60.0 (>49); GLUCOSE, FASTING 117 MG/DL (70-100); POTASSIUM SERUM 3.5 MEQ/L (3.5-5.1); SODIUM LEVEL 153 MEQ/L (136-145)
[2018-11-03 06:41] LABS: BASO # 0.1 10^3/uL (0.0-0.2); BASO % 0.9 % (0.0-1.0); EOS # 0.1 10^3/uL (0.0-0.5); EOS % 0.6 % (0.0-3.0); HEMATOCRIT 37.3 % (42.0-52.0); LYMPH % 6.2 % (24.0-44.0); MEAN CORPUSCULAR HEMOGLOBIN 30.5 pg (27.0-33.0); MEAN CORPUSCULAR HGB CONC 32.2 g/dl (32.0-36.5); MEAN CORPUSCULAR VOLUME 94.9 fl (80.0-96.0); MONO % 13.1 % (0.0-5.0); NEUTROPHILS # 12.1 10^3/uL (1.5-8.5); NEUTROPHILS % 74.8 % (36.0-66.0); PLATELET COUNT, AUTOMATED 291 10^3/uL (150-450); RED BLOOD COUNT 3.93 10^6/uL (4.30-6.10); WHITE BLOOD COUNT 16.2 10^3/uL (4.0-10.0)
[2018-11-03 07:06] LABS: MONO # 2.1 10^3/uL (0.0-0.8)
[2018-11-03] MEDS: QUEtiapine FUMARATE 50 MG TAB PO SCH (09:00)
[2018-11-03] MEDS: HALOPERIDOL 5 MG/ML VIAL (J1630) IV SCH ×3 (09:00→22:02)
[2018-11-03] MEDS: risperiDONE 3 MG TAB PO SCH ×2 (09:00→21:00)
[2018-11-03] MEDS: VALPROATE SOD INJ 500 MG in D5W MINI-BAG PLUS 50 ML IV SCH (09:42)
[2018-11-03] MEDS: HEPARIN SOD (PORCINE) 5000 UNITS/ML VIAL SC SCH ×2 (09:43→21:01)
--- NOTE | 2018-11-03 11:56 | IPNPDOC ---
Subjective Date Seen The patient was seen on 11/03/18. Subjective Chief Complaint/HPI [facility] staff at bedside, he and nursing report that the pt has been asking for ice cream this morning. Otherwise no concerns today. General: Reports: ROS Unobtainable Objective Physical Examination General Exam: Positive: Cooperative (non-verbal, holding staff hands. ), No Acute Distress; Negative: Alert Eye Exam: Positive: Ptosis (right eyelid); Negative: Sclera icteric ENT Exam: Positive: Mucous membr. moist/pink, Other ENT (right facial droop) Neck Exam: Positive: Supple; Negative: thyromegaly Chest Exam: Positive: Rhonchi, Wheezing, Other (bilateral basal crackles.) Heart Exam: Positive: Rate Normal, Regular Rhythm, Normal S1, Normal S2; Negative: Murmurs, Rubs Telemetry: Positive: No significant arrhythmia Abdomen Exam: Positive: Normal bowel sounds, Soft; Negative: Tenderness, Hepatospenomegaly Extremity Exam: Positive: Edema (4 + edema bipedal), Swelling Skin Exam: Positive: Nl turgor and temperature Assessment /Plan Problems (1) Acute respiratory failure with hypoxia Status: Acute Response to Treatment: Progressing Problem Text: 11/03 checklist signed by [facility] rep (Dr. Salazar), but [facility] did not like "wording"; therefore, attempting to determine what [facility] needs to state 11/02 checklist requesting DNR/DNI completed for [facility] to approve, then for Dr. Salazar to sign. Apparently [facility] has approved PEG placement, but would favor D NR/DNI in place BEFOREHAND, given ho COMPLETE HEART BLOCK with previous colonoscopy. 10/31/18 increasing O2 requirement, now at HF 95% at 40L to maintain SaO2>94%; lane whaley [facility] Director that as patient's PCP for 15 years, would recommend DNR/DNI status-MOLST completed accordingly and gave to [facility] advertising sales representative at bedside. Mr. Wynne stated that he would "expedite" the process, but that "nothing would happen tonight". He would present the case to the [facility] and [facility] Board in AM, then would need concurring and Dr. Salazar to sign off. 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 There is chronic microvascular disease. 2. No acute intracranial lesion or injury. 1. Probable small, less than 2 mm on the left and left and 1 mm on the right, bilateral posterior communicating artery infundibula. No definite aneurysm. 2. No intracranial stenosis or occlusion. 10/19/18 TTE: 1. Normal left ventricle internal dimensions and wall thickness. Normal regional LV wall motion and wall thickening. Normal LV systolic function. Grade 1 LV diastolic dysfunction. 2. Otherwise normal echocardiogram Doppler findings. (4) Developmental disability Status: Chronic Problem Text: no HCP/legal guardian decisions [facility] as of now, FULL CODE status (5) Aspiration pneumonia Status: Acute Problem Text: D5 pip/lizeth remains NPO/asp precautions 11/02/18: WBC continues to improve along with clinical presentation. continue to wean off of oxygen needs. Continue CPT and suctioning. 11/01/18: WBC improved at 17,000. 10/29 CT chest: 1. Airspace consolidations in the bilateral dependent lower lobes significantly larger on the right. 2. Aspirated material in the bronchus intermedius and right lower lobe bronchus. (6) CKD (chronic kidney disease), stage III Status: Chronic Problem Text: 11/01/18: Cr. stable at 1.2 Cr 1.6, baseline 1.0-1.2. IVF ordered for fluid [id number] NS at 100 cc per hour. (7) Schizophrenia Status: Chronic Problem Text: c ho severe agitation 10/30 given NPO status, DVP changed to IV. traz 50 QHS, ris 3 BID, quet 200 QHS on hold c tory 0.5 q6 IV prn and + halo 0.5 IV q6H (hold for sedation) (8) GERD (gastroesophageal reflux disease) Status: Chronic Problem Text: IV Protonix (9) IFG (impaired fasting glucose) Status: Chronic Problem Text: [email or web address] 6.0 09/2018 Plan/VTE VTE Prophylaxis Ordered?: Yes VS, I&O, 24H, Fishbone Vital Signs/I&O Vital Signs Date Time Temp Pulse Resp B/P (MAP) Pulse Ox O2 Delivery O2 Flow Rate FiO2 11/03/18 09:07 97 Nasal Cannula 8.0 11/03/18 08:00 35 11/03/18 08:00 97.3 90 17 138/78 (98) I&O- Last 24 Hours up to 6 AM 11/03/18 06:00 Intake Total 2882.5 ml Output Total 1 ml Balance 2881.5 ml Laboratory Data 24H LABS Laboratory Tests 2 11/03/18 05:36: Anion Gap 4L, Glomerular Filtration Rate > 60.0, Blood Urea Nitrogen 32H, Creatinine 1.14, Sodium Level 153H, Potassium Level 3.5, Chloride Level 119H, Carbon Dioxide Level 30, Calcium Level 7.8L 11/03/18 05:57: Immature Granulocyte % (Auto) 4.4H, White Blood Count 16.2H, Red Blood Count 3.93L, Hemoglobin 12.0L, Hematocrit 37.3L, Mean Corpuscular Volume 94.9, Mean Corpuscular Hemoglobin 30.5, Mean Corpuscular Hemoglobin Concent 32.2, Red Cell Distribution Width 15.3H, Platelet Count 291, Neutrophils (%) (Auto) 74.8H, Lymphocytes (%) (Auto) 6.2L, Monocytes (%) (Auto) 13.1H, Eosinophils (%) (Auto) 0.6, Basophils (%) (Auto) 0.9, Neutrophils # (Auto) 12.1H, Lymphocytes # (Auto) 1.0L, Monocytes # (Auto) 2.1H, Eosinophils # (Auto) 0.1, Basophils # (Auto) 0.1, Nucleated Red Blood Cells % (auto) 0.0 CBC/BMP Laboratory Tests 11/03/18 05:36 Calcium Level 7.8 L 11/03/18 05:57 Red Blood Count 3.93 L, Mean Corpuscular Volume 94.9, Mean Corpuscular Hemoglobin 30.5, Mean Corpuscular Hemoglobin Concent 32.2, Red Cell Distribution Width 15.3 H, Neutrophils (%) (Auto) 74.8 H, Lymphocytes (%) (Auto) 6.2 L, Monocytes (%) (Auto) 13.1 H, Eosinophils (%) (Auto) 0.6, Basophils (%) (Auto) 0.9, Neutrophils # (Auto) 12.1 H, Lymphocytes # (Auto) 1.0 L, Monocytes # (Auto) 2.1 H, Eosinophils # (Auto) 0.1, Basophils # (Auto) 0.1 Microbiology Microbiology 10/29/18 Blood Culture - Preliminary, Resulted No Growth after 72 hours. All specime... 10/29/18 Blood Culture - Preliminary, Resulted No Growth after 72 hours. All specime... ISIDRO EDEN PA-C Nov 03, 2018 11:56 Timmy Nesbitt M.D. Nov 03, 2018 17:56
[2018-11-03] MEDS ORDERED: FAT EMULSION IV 20% 500 ML IV SCH (18:00)
[2018-11-03] MEDS: AMINO AC/ELECTROLYTE/DEX/CALC 1,000 ML IV SCH (18:18)
[2018-11-03] MEDS: PANTOPRAZOLE 40MG INJ (PROTONIX) (C9113) IV SCH (21:00)
[2018-11-03] MEDS: QUEtiapine FUMARATE **XR** 200MG TABLET PO SCH (21:00)
[2018-11-03] MEDS: traZODone 50 MG TAB PO SCH (21:00)
[2018-11-03] MEDS: VALPROATE SOD INJ 250 MG in D5W 50 ML IV SCH (21:01)
[2018-11-04] VITALS (18 sets, daily range): BP systolic 126–170; BP diastolic 77–88; O2SAT 88–94
[2018-11-04] MEDS: PIPERACILLIN/TAZOBACTAM SOD 3.375 GM in D5W MINI-BAG PLUS 50 ML IV SCH ×5 (00:08→23:07)
[2018-11-04] MEDS: SODIUM CHLORIDE HYPERTONIC 3% 15ML NEB SOL INH SCH ×4 (01:22→19:32)
[2018-11-04] MEDS: ALBUTEROL SULFATE 2.5 MG/0.5 ML INH NEB SOLN NEB SCH ×4 (01:22→19:31)
[2018-11-04] MEDS: D5W/0.45% SODIUM CHLORIDE 1,000 ML IV SCH ×2 (05:43→07:49)
[2018-11-04 06:22] LABS: BASO # 0.1 10^3/uL (0.0-0.2); BASO % 0.8 % (0.0-1.0); EOS # 0.2 10^3/uL (0.0-0.5); EOS % 0.9 % (0.0-3.0); LYMPH % 6.3 % (24.0-44.0); MEAN CORPUSCULAR HEMOGLOBIN 30.4 pg (27.0-33.0); MEAN CORPUSCULAR HGB CONC 32.4 g/dl (32.0-36.5); MEAN CORPUSCULAR VOLUME 93.7 fl (80.0-96.0); MONO # 1.8 10^3/uL (0.0-0.8); MONO % 11.4 % (0.0-5.0); NEUTROPHILS % 76.1 % (36.0-66.0); PLATELET COUNT, AUTOMATED 287 10^3/uL (150-450); RED BLOOD COUNT 3.95 10^6/uL (4.30-6.10); WHITE BLOOD COUNT 15.8 10^3/uL (4.0-10.0)
[2018-11-04] MEDS: SLF 3 ML SYR IV SCH ×3 (06:31→20:52)
[2018-11-04 06:35] LABS: BLOOD UREA NITROGEN 29 MG/DL (7-18); CALCIUM LEVEL 7.5 MG/DL (8.8-10.2); CARBON DIOXIDE LEVEL 31 MEQ/L (21-32); CHLORIDE LEVEL 116 MEQ/L (98-107); CREATININE FOR GFR 1.07 MG/DL (0.70-1.30); GLOMERULAR FILTRATION RATE > 60.0 (>49); GLUCOSE, FASTING 105 MG/DL (70-100); POTASSIUM SERUM 3.4 MEQ/L (3.5-5.1); SODIUM LEVEL 152 MEQ/L (136-145)
--- NOTE | 2018-11-04 07:00 | REPVR ---
EXAM: CT Head Without Contrast EXAM DATE/TIME: 11/04/2018 6:00 AM CLINICAL HISTORY: 68 years old, male; Condition or disease; Other: Dysphagia TECHNIQUE: Imaging protocol: Computed tomography of the head without contrast. Radiation optimization: All CT scans at this facility use at least one of these dose optimization techniques: automated exposure control; mA and/or kV adjustment per patient size (includes targeted exams where dose is matched to clinical indication); or iterative reconstruction. COMPARISON: CT Head Stroke Protocol 10/19/2018 3:48 PM FINDINGS: Brain: There is minimal patchy low attenuation of deep white matter. There is mild prominence of the peripheral sulci. Ventricles: There is moderate prominence of the central ventricular system for age. Bones/joints: Unremarkable. No acute fracture. Sinuses: Visualized sinuses are unremarkable. No fluid levels. Mastoid air cells: Visualized mastoid air cells are well aerated. Soft tissues: Unremarkable. IMPRESSION: 1. There has been little change from 10/19/2018. No acute interval intracranial process is identified. 2. Minimal chronic ischemic white matter change and moderate atrophy for age. Electronically signed by: Steffen Roche On 11/04/2018 06:59:50 AM
[2018-11-04] MEDS: QUEtiapine FUMARATE 50 MG TAB PO SCH (09:00)
[2018-11-04] MEDS: risperiDONE 3 MG TAB PO SCH ×2 (09:00→20:46)
[2018-11-04] MEDS: HEPARIN SOD (PORCINE) 5000 UNITS/ML VIAL SC SCH ×2 (10:04→20:51)
[2018-11-04] MEDS: HALOPERIDOL 5 MG/ML VIAL (J1630) IV SCH ×2 (10:04→23:07)
[2018-11-04] MEDS: VALPROATE SOD INJ 500 MG in D5W MINI-BAG PLUS 50 ML IV SCH (10:04)
[2018-11-04] MEDS: AMINO AC/ELECTROLYTE/DEX/CALC 1,000 ML IV SCH (11:28)
--- NOTE | 2018-11-04 14:13 | IPNPDOC ---
Subjective Date Seen The patient was seen on 11/04/18. Subjective Chief Complaint/HPI no CC other than expresses a desire for ice cream General: Reports: ROS Unobtainable Objective Physical Examination General Exam: Positive: Cooperative (non-verbal, holding staff hands. ), No Acute Distress; Negative: Alert Eye Exam: Positive: Ptosis (right eyelid); Negative: Sclera icteric ENT Exam: Positive: Mucous membr. moist/pink, Other ENT (right facial droop) Neck Exam: Positive: Supple; Negative: thyromegaly Chest Exam: Positive: Rhonchi, Other (bilateral basal crackles.); Negative: Wheezing Heart Exam: Positive: Rate Normal, Regular Rhythm, Normal S1, Normal S2; Negative: Murmurs, Rubs Telemetry: Positive: No significant arrhythmia Abdomen Exam: Positive: Normal bowel sounds, Soft; Negative: Tenderness, Hepatospenomegaly Extremity Exam: Positive: Edema (4 + edema bipedal), Swelling Skin Exam: Positive: Nl turgor and temperature Assessment /Plan Problems (1) Acute respiratory failure with hypoxia Status: Acute Response to Treatment: Progressing Problem Text: 11/04: need approved checklist to issue DNR order to proceed with feeding tube placement. 11/03 checklist signed by [facility] rep (Dr. Salazar), but [facility] did not like "wording"; therefore, attempting to determine what [facility] needs to state 11/02 checklist requesting DNR/DNI completed for [facility] to approve, then for Dr. Salazar to sign. Apparently [facility] has approved PEG placement, but would favor DNR/DNI in place BEFOREHAND, given ho COMPLETE HEART BLOCK with previous colonos copy. 10/31/18 increasing O2 requirement, now at HF 95% at 40L to maintain SaO2>94%; lane whaley [facility] Director that as patient's PCP for 15 years, would recommend DNR/DNI status-MOLST completed accordingly and gave to [facility] resources representative at bedside. Mr. Wynne stated that he would "expedite" the process, but that "nothing would happen tonight". He would present the case to the [facility] and [facility] Board in AM, then would need concurring and Dr. Salazar to sign off. 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 There is chronic microvascular disease. 2. No acute intracranial lesion or injury. 1. Probable small, less than 2 mm on the left and left and 1 mm on the right, bilateral posterior communicating artery infundibula. No definite aneurysm. 2. No intracranial stenosis or occlusion. 10/19/18 TTE: 1. Normal left ventricle internal dimensions and wall thickness. Normal regional LV wall motion and wall thickening. Normal LV systolic function. Grade 1 LV diastolic dysfunction. 2. Otherwise normal echocardiogram Doppler findings. (4) Developmental disability Status: Chronic Problem Text: no HCP/legal guardian decisions care per [facility] as of now, FULL CODE status (5) Aspiration pneumonia Status: Acute Problem Text: D6 antibiotics. sufficiently stable to transfer to floor with cont. O2 monitoring D5 pip/lizeth remains NPO/asp precautions 11/02/18: WBC continues to improve along with clinical presentation. continue to wean off of oxygen needs. Continue CPT and suctioning. 11/01/18: WBC improved at 17,000. 10/29 CT chest: 1. Airspace consolidations in the bilateral dependent lower lobes significantly larger on the right. 2. Aspirated material in the bronchus intermedius and right lower lobe bronchus. (6) CKD (chronic kidney disease), stage III Status: Chronic Problem Text: 11/01/18: Cr. stable at 1.2 Cr 1.6, baseline 1.0-1.2. IVF ordered for fluid [id number] NS at 100 cc per hour. (7) Schizophrenia Status: Chronic Problem Text: c ho severe agitation 10/30 given NPO status, DVP changed to IV. traz 50 QHS, ris 3 BID, quet 200 QHS on hold c tory 0.5 q6 IV prn and + halo 0.5 IV q6H (hold for sedation) (8) GERD (gastroesophageal reflux disease) Status: Chronic Problem Text: IV Protonix (9) IFG (impaired fasting glucose) Status: Chronic Problem Specific Plan: Monitor Clinically, Repeat Labs Problem Text: [email or web address] 6.0 09/2018 Plan/VTE VTE Prophylaxis Ordered?: Yes VS, I&O, 24H, Fishbone Vital Signs/I&O Vital Signs Date Time Temp Pulse Resp B/P (MAP) Pulse Ox O2 Delivery O2 Flow Rate FiO2 11/04/18 12:00 99.7 91 20 134/81 (98) 90 11/04/18 04:00 Room Air 11/04/18 04:00 4.0 11/03/18 08:00 I&O- Last 24 Hours up to 6 AM 11/04/18 06:00 Intake Total 102.5 ml Balance 102.5 ml Laboratory Data 24H LABS Laboratory Tests 2 11/04/18 05:36: Immature Granulocyte % (Auto) 4.5H, White Blood Count 15.8H, Red Blood Count 3.95L, Hemoglobin 12.0L, Hematocrit 37.0L, Mean Corpuscular Volume 93.7, Mean Corpuscular Hemoglobin 30.4, Mean Corpuscular Hemoglobin Concent 32.4, Red Cell Distribution Width 15.0H, Platelet Count 287, Neutrophils (%) (Auto) 76.1H, Lymphocytes (%) (Auto) 6.3L, Monocytes (%) (Auto) 11.4H, Eosinophils (%) (Auto) 0.9, Basophils (%) (Auto) 0.8, Neutrophils # (Auto) 12.0H, Lymphocytes # (Auto) 1.0L, Monocytes # (Auto) 1.8H, Eosinophils # (Auto) 0.2, Basophils # (Auto) 0.1, Nucleated Red Blood Cells % (auto) 0.0, Anion Gap 5L, Glomerular Filtration Rate > 60.0, Blood Urea Nitrogen 29H, Creatinine 1.07, Sodium Level 152H, Potassium Level 3.4L, Chloride Level 116H, Carbon Dioxide Level 31, Calcium Level 7.5L CBC/BMP Laboratory Tests 11/04/18 05:36 Red Blood Count 3.95 L, Mean Corpuscular Volume 93.7, Mean Corpuscular Hemoglobin 30.4, Mean Corpuscular Hemoglobin Concent 32.4, Red Cell Distribution Width 15.0 H, Neutrophils (%) (Auto) 76.1 H, Lymphocytes (%) (Auto) 6.3 L, Monocytes (%) (Auto) 11.4 H, Eosinophils (%) (Auto) 0.9, Basophils (%) (Auto) 0.8, Neutrophils # (Auto) 12.0 H, Lymphocytes # (Auto) 1.0 L, Monocytes # (Auto) 1.8 H, Eosinophils # (Auto) 0.2, Basophils # (Auto) 0.1, Calcium Level 7.5 L Microbiology Microbiology 10/29/18 Blood Culture - Final, Complete NO GROWTH AFTER 5 DAYS 10/29/18 Blood Culture - Final, Complete NO GROWTH AFTER 5 DAYS Saqib Haynes MD Nov 04, 2018 14:13
[2018-11-04] MEDS: D5W 1,000 ML IV SCH (14:49)
[2018-11-04] MEDS ORDERED: FAT EMULSION IV 20% 500 ML IV SCH (18:00)
[2018-11-04] MEDS: traZODone 50 MG TAB PO SCH (20:46)
[2018-11-04] MEDS: QUEtiapine FUMARATE **XR** 200MG TABLET PO SCH (20:46)
[2018-11-04] MEDS: VALPROATE SOD INJ 250 MG in D5W 50 ML IV SCH (20:51)
[2018-11-04] MEDS: PANTOPRAZOLE 40MG INJ (PROTONIX) (C9113) IV SCH (20:51)
[2018-11-05] MEDS: AMINO AC/ELECTROLYTE/DEX/CALC 1,000 ML IV SCH ×2 (02:53→19:46)
[2018-11-05] MEDS: HALOPERIDOL 5 MG/ML VIAL (J1630) IV SCH ×3 (05:21→20:41)
[2018-11-05] MEDS: PIPERACILLIN/TAZOBACTAM SOD 3.375 GM in D5W MINI-BAG PLUS 50 ML IV SCH ×3 (05:21→18:30)
[2018-11-05] MEDS: SLF 3 ML SYR IV SCH ×3 (05:21→20:41)
[2018-11-05] MEDS: SODIUM CHLORIDE HYPERTONIC 3% 15ML NEB SOL INH SCH ×5 (05:35→23:41)
[2018-11-05] MEDS: ALBUTEROL SULFATE 2.5 MG/0.5 ML INH NEB SOLN NEB SCH ×5 (05:36→23:40)
[2018-11-05 06:00] VITALS: BP 160/88
[2018-11-05 07:17] LABS: BASO # 0.1 10^3/uL (0.0-0.2); BASO % 0.3 % (0.0-1.0); EOS # 0.1 10^3/uL (0.0-0.5); EOS % 0.8 % (0.0-3.0); HEMOGLOBIN 11.5 g/dl (13.5-17.5); LYMPH # 1.2 10^3/uL (1.5-5.0); LYMPH % 6.6 % (24.0-44.0); MEAN CORPUSCULAR HEMOGLOBIN 29.2 pg (27.0-33.0); MEAN CORPUSCULAR HGB CONC 32.9 g/dl (32.0-36.5); MEAN CORPUSCULAR VOLUME 88.8 fl (80.0-96.0); MONO # 1.6 10^3/uL (0.0-0.8); MONO % 8.8 % (0.0-5.0); NEUTROPHILS % 79.5 % (36.0-66.0); PLATELET COUNT, AUTOMATED 214 10^3/uL (150-450); RED BLOOD COUNT 3.94 10^6/uL (4.30-6.10); WHITE BLOOD COUNT 17.7 10^3/uL (4.0-10.0)
[2018-11-05 07:43] LABS: BLOOD UREA NITROGEN 29 MG/DL (7-18); CALCIUM LEVEL 7.4 MG/DL (8.8-10.2); CARBON DIOXIDE LEVEL 29 MEQ/L (21-32); CHLORIDE LEVEL 111 MEQ/L (98-107); CREATININE FOR GFR 1.09 MG/DL (0.70-1.30); GLOMERULAR FILTRATION RATE > 60.0 (>49); GLUCOSE, FASTING 120 MG/DL (70-100); POTASSIUM SERUM 4.3 MEQ/L (3.5-5.1); SODIUM LEVEL 145 MEQ/L (136-145)
[2018-11-05] MEDS: D5W 1,000 ML IV SCH (09:00)
[2018-11-05] MEDS: HEPARIN SOD (PORCINE) 5000 UNITS/ML VIAL SC SCH ×2 (09:10→20:40)
[2018-11-05] MEDS: VALPROATE SOD INJ 500 MG in D5W MINI-BAG PLUS 50 ML IV SCH (09:12)
--- NOTE | 2018-11-05 13:23 | IPNPDOC ---
Subjective Date Seen The patient was seen on 11/05/18. Subjective Chief Complaint/HPI no new complaint General: Reports: ROS Unobtainable Objective Physical Examination General Exam: Positive: Cooperative (non-verbal, holding staff hands. ), No Acute Distress; Negative: Alert Eye Exam: Positive: Ptosis (right eyelid); Negative: Sclera icteric ENT Exam: Positive: Mucous membr. moist/pink, Other ENT (large salivary pool in retropharynx.) Neck Exam: Positive: Supple; Negative: thyromegaly Chest Exam: Positive: Rhonchi, Other (bilateral basal crackles. poor air entry. ); Negative: Wheezing Heart Exam: Positive: Rate Normal, Regular Rhythm, Normal S1, Normal S2; Negative: Murmurs, Rubs Telemetry: Positive: No significant arrhythmia Abdomen Exam: Positive: Normal bowel sounds, Soft; Negative: Tenderness, Hepatospenomegaly Extremity Exam: Positive: Edema (bilateral edema), Swelling Skin Exam: Positive: Nl turgor and temperature Neuro Exam: Positive: Other (alert, reaches out to examiner, engages eye contact. no speech today.. GAG observed to be present on tongue depressor stimulation. ) Assessment /Plan Problems (1) Acute respiratory failure with hypoxia Status: Acute Response to Treatment: Progressing Problem Text: 11/04: need approved checklist to issue DNR order to proceed with feeding tube placement. 11/03 checklist signed by [facility] rep (Dr. Salazar), but [facility] did not like "wording"; therefore, attempting to determine what [facility] needs to state 11/02 checklist requesting DNR/DNI completed for [facility] to approve, then for Dr. Salazar to sign. Apparently [facility] has approved PEG placement, but would favor DNR/DNI in place BEFOREHAND, given ho COMPLETE HEART BLOCK with previous colonoscopy. 10/31/18 increasing O2 requirement, now at HF 95% at 40L to maintain SaO2>94%; lane whaley [facility] Director that as patient's PCP for 15 years, would recommend DNR/DNI status-MOLST completed accordingly and gave to [facility] primary care sales representative at bedside. Mr. Wynne stated that he would "expedite" the process, but that "nothing would happen tonight". He would present the case to the [facility] and [facility] Board in AM, then would need concurring and Dr. Salazar to sign off. continue alb 2.5/3% Na q6H 10/31/18 1800 ABG 7.49/62/33/92% (2) Hypernatremia Status: Acute Problem Text: 11/05 sodium corrected overnight with D5W, will stop this supplemental fluid for now. 11/04: Still High, will d/c current IV fluid, change to D5W at 60, continue parenteral nutrition baseline NA low 140s c HILARY I 11/03 153 + PPN to IVF 10/31 153; therefore, increased to 120H-favor increased insensible loss c persistent free H20 deficit 10/30 150 (150) favor 2 dehydration; therefore, 03/01 NS 80H (3) Oropharyngeal dysphagia Status: Chronic Problem Text: 11/05: gag is visualized today on exam but also has large retrophar yngeal salivary pool indicating decreased clearing. 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 There is chronic microvascular disease. 2. No acute intracranial lesion or injury. 1. Probable small, less than 2 mm on the left and left and 1 mm on the right, bilateral posterior communicating artery infundibula. No definite aneurysm. 2. No intracranial stenosis or occlusion. 10/19/18 TTE: 1. Normal left ventricle internal dimensions and wall thickness. Normal regional LV wall motion and wall thickening. Normal LV systolic function. Grade 1 LV diastolic dysfunction. 2. Otherwise normal echocardiogram Doppler findings. (4) Developmental disability Status: Chronic Response to Treatment: Stable Problem Text: no HCP/legal guardian decisions care [facility] as of now, FULL CODE status (5) Aspiration pneumonia Status: Acute Problem Text: 11/05/ will check CXR in am to see if he has any clearing. D6 antibiotics. sufficiently stable to transfer to floor with cont. O2 monitoring D5 pip/lizeth remains NPO/asp precautions 11/02/18: WBC continues to improve along with clinical presentation. continue to wean off of oxygen needs. Continue CPT and suctioning. 11/01/18: WBC improved at 17,000. 10/29 CT chest: 1. Airspace consolidations in the bilateral dependent lower lobes significantly larger on the right. 2. Aspirated material in the bronchus intermedius and right lower lobe bronchus. (6) CKD (chronic kidney disease), stage III Status: Chronic Problem Text: 11/01/18: Cr. stable at 1.2 Cr 1.6, baseline 1.0-1.2. IVF ordered for fluid [id number] NS at 100 cc per hour. (7) Schizophrenia Status: Chronic Problem Text: c ho severe agitation 10/30 given NPO status, DVP changed to IV. traz 50 QHS, ris 3 BID, quet 200 QHS on hold c tory 0.5 q6 IV prn and + halo 0.5 IV q6H (hold for sedation) (8) GERD (gastroesophageal reflux disease) Status: Chronic Problem Text: IV Protonix (9) IFG (impaired fasting glucose) Status: Chronic Problem Specific Plan: Monitor Clinically, Repeat Labs Problem Text: [email or web address] 6.0 09/2018 Plan/VTE VTE Prophylaxis Ordered?: Yes VS, I&O, [facility] V[facility] Sign[facility]/I&O Vital Signs Date Time Temp Pulse Resp B/P (MAP) Pulse Ox O2 Delivery O2 Flow Rate FiO2 11/05/18 06:00 99.8 97 20 160/88 (112) 94 11/04/18 23:01 Room Air 11/04/18 04:00 4.0 11/03/18 08:00 I&O- Last 24 Hours up to 6 AM 11/05/18 06:00 Intake Total 3080 ml Balance 3080 ml Laboratory Data 24H LABS Laboratory Tests 2 11/04/18 22:44: Bedside Glucose (Misc Panel) 117H 11/05/18 05:34: Bedside Glucose (Misc Panel) 136H 11/05/18 06:53: Immature Granulocyte % (Auto) 4.0H, White Blood Count 17.7H, Red Blood Count 3.94L, Hemoglobin 11.5L, Hematocrit 35.0L, Mean Corpuscular Volume 88.8, Mean Corpuscular Hemoglobin 29.2, Mean Corpuscular Hemoglobin Concent 32.9, Red Cell Distribution Width 14.9H, Platelet Count 214, Neutrophils (%) (Auto) 79.5H, Lymphocytes (%) (Auto) 6.6L, Monocytes (%) (Auto) 8.8H, Eosinophils (%) (Auto) 0.8, Basophils (%) (Auto) 0.3, Neutrophils # (Auto) 14.0H, Lymphocytes # (Auto) 1.2L, Monocytes # (Auto) 1.6H, Eosinophils # (Auto) 0.1, Basophils # (Auto) 0.1, Nucleated Red Blood Cells % (auto) 0.0, Anion Gap 5L, Glomerular Filtration Rate > 60.0, Blood Urea Nitrogen 29H, Creatinine 1.09, Sodium Level 145, Potassium Level 4.3#, Chloride Level 111H, Carbon Dioxide Level 29, Calcium Level 7.4L 11/05/18 11:36: Bedside Glucose (Misc Panel) 97 CBC/BMP Laboratory Tests 11/05/18 06:53 Red Blood Count 3.94 L, Mean Corpuscular Volume 88.8, Mean Corpuscular Hemoglobin 29.2, Mean Corpuscular Hemoglobin Concent 32.9, Red Cell Distribution Width 14.9 H, Neutrophils (%) (Auto) 79.5 H, Lymphocytes (%) (Auto) 6.6 L, Monocytes (%) (Auto) 8.8 H, Eosinophils (%) (Auto) 0.8, Basophils (%) (Auto) 0.3, Neutrophils # (Auto) 14.0 H, Lymphocytes # (Auto) 1.2 L, Monocytes # (Auto) 1.6 H, Eosinophils # (Auto) 0.1, Basophils # (Auto) 0.1, Calcium Level 7.4 L Microbiology Microbiology 10/29/18 Blood Culture - Final, Complete NO GROWTH AFTER 5 DAYS 10/29/18 Blood Culture - Final, Complete NO GROWTH AFTER 5 DAYS Saqib Haynes MD Nov 05, 2018 13:23
[2018-11-05 15:24] VITALS: BP 151/83
[2018-11-05] MEDS: HumaLOG INSULIN (NovoLOG) PER UNIT SC SCH (17:23)
[2018-11-05] MEDS ORDERED: FAT EMULSION IV 20% 500 ML IV SCH (18:00)
[2018-11-05] MEDS: PANTOPRAZOLE 40MG INJ (PROTONIX) (C9113) IV SCH (20:39)
[2018-11-05] MEDS: VALPROATE SOD INJ 250 MG in D5W 50 ML IV SCH (20:40)
[2018-11-05 22:00] VITALS: BP 127/78
[2018-11-06] MEDS: PIPERACILLIN/TAZOBACTAM SOD 3.375 GM in D5W MINI-BAG PLUS 50 ML IV SCH ×4 (00:10→18:15)
[2018-11-06] MEDS: LORazepam 2 MG/ML VIAL (J2060) IV PRN (03:46)
[2018-11-06 06:00] VITALS: BP 147/80
[2018-11-06] MEDS ORDERED: ACETAMINOPHEN 650MG ER TAB (TYLENOL ARTHRITIS) PO PRN (06:00)
[2018-11-06] MEDS: HumaLOG INSULIN (NovoLOG) PER UNIT SC SCH ×4 (06:00→17:48)
[2018-11-06] MEDS: ACETAMINOPHEN 650 MG SUPP PR PRN ×2 (06:24→18:51)
[2018-11-06] MEDS: HALOPERIDOL 5 MG/ML VIAL (J1630) IV SCH ×3 (06:24→21:49)
[2018-11-06] MEDS: SLF 3 ML SYR IV SCH ×3 (06:25→21:49)
[2018-11-06 06:39] LABS: BASO # 0.1 10^3/uL (0.0-0.2); BASO % 0.5 % (0.0-1.0); EOS # 0.2 10^3/uL (0.0-0.5); EOS % 0.9 % (0.0-3.0); HEMATOCRIT 32.5 % (42.0-52.0); HEMOGLOBIN 10.8 g/dl (13.5-17.5); LYMPH # 1.1 10^3/uL (1.5-5.0); MEAN CORPUSCULAR HEMOGLOBIN 30.6 pg (27.0-33.0); MEAN CORPUSCULAR HGB CONC 33.2 g/dl (32.0-36.5); MEAN CORPUSCULAR VOLUME 92.1 fl (80.0-96.0); MONO # 1.5 10^3/uL (0.0-0.8); MONO % 8.4 % (0.0-5.0); NEUTROPHILS # 14.4 10^3/uL (1.5-8.5); NEUTROPHILS % 79.9 % (36.0-66.0); PLATELET COUNT, AUTOMATED 202 10^3/uL (150-450); RED BLOOD COUNT 3.53 10^6/uL (4.30-6.10)
[2018-11-06 07:11] LABS: ALT/SGPT 18 U/L (12-78); BILIRUBIN,TOTAL 0.6 MG/DL (0.2-1.0); BLOOD UREA NITROGEN 28 MG/DL (7-18); CALCIUM LEVEL 7.3 MG/DL (8.8-10.2); CARBON DIOXIDE LEVEL 27 MEQ/L (21-32); CHLORIDE LEVEL 108 MEQ/L (98-107); CREATININE FOR GFR 1.04 MG/DL (0.70-1.30); GLOMERULAR FILTRATION RATE > 60.0 (>49); GLUCOSE, FASTING 109 MG/DL (70-100); POTASSIUM SERUM 3.6 MEQ/L (3.5-5.1); SODIUM LEVEL 141 MEQ/L (136-145); TOTAL PROTEIN 5.4 GM/DL (6.4-8.2)
[2018-11-06] MEDS: ALBUTEROL SULFATE 2.5 MG/0.5 ML INH NEB SOLN NEB SCH ×3 (08:00→21:08)
[2018-11-06] MEDS: SODIUM CHLORIDE HYPERTONIC 3% 15ML NEB SOL INH SCH ×3 (08:00→21:07)
[2018-11-06] MEDS: HEPARIN SOD (PORCINE) 5000 UNITS/ML VIAL SC SCH ×2 (09:22→21:48)
--- NOTE | 2018-11-06 10:15 | IPNPDOC ---
Subjective Date Seen The patient was seen on 11/06/18. Subjective Chief Complaint/HPI Spoke with nursing this morning as well as PFS and Case management. Nursing reports more rhonchorous lung sounds, pt has just returned from CXR, Tmax this morning was 100.7. Hazel from working with [facility] regarding obtaining completed MOLST, this was reviewed with Dr Davis as well. General: Reports: ROS Unobtainable Objective Physical Examination General Exam: Positive: Cooperative (non-verbal, holding staff hands. ), No Acute Distress; Negative: Alert Eye Exam: Positive: Ptosis (right eyelid); Negative: Sclera icteric ENT Exam: Positive: Mucous membr. moist/pink, Other ENT (large salivary pool in retropharynx.) Neck Exam: Positive: Supple; Negative: thyromegaly Chest Exam: Positive: Rhonchi, Other (bilateral basal crackles. poor air entry.); Negative: Wheezing Heart Exam: Positive: Rate Normal, Regular Rhythm, Normal S1, Normal S2; Negative: Murmurs, Rubs Telemetry: Positive: No significant arrhythmia Abdomen Exam: Positive: Normal bowel sounds, Soft; Negative: Tenderness, Hepatospenomegaly Extremity Exam: Positive: Edema (bilateral edema 1 mm), Swelling Skin Exam: Positive: Nl turgor and temperature Neuro Exam: Positive: Other (engages eye contact. no speech today.) Assessment /Plan Problems (1) Acute respiratory failure with hypoxia Status: Acute Response to Treatment: Progressing Problem Text: 11/06, Tmas 100.7 this morning, repeat CXR pending, pt cont to demonstrate difficulty managing secretions therefore aspiration risk remains high, this risk will cont and possibly increase with placement of J tube. Will cont to work with [facility] to obtain completed MOLST prior to tube placement. 11/04: need approved checklist to issue DNR order to proceed with feeding tube placement. 11/03 checklist signed by [facility] rep (Dr. Salazar), but [facility] did not like "wording"; therefore, attempting to determine what verbiage needs to state 11/02 checklist requesting DNR/DNI completed for [facility] to approve, then for Dr. Neris wallace to sign. Apparently [facility] has approved PEG placement, but would favor DNR/DNI in place BEFOREHAND, given ho COMPLETE HEART BLOCK with previous colonoscopy. 10/31/18 increasing O2 requirement, now at HF 95% at 40L to maintain SaO2>94%; lane whaley [facility] Director that as patient's PCP for 15 years, would recommend DNR/DNI status-MOLST completed accordingly and gave to [facility] insurance sales representative at bedside. Mr. Wynne stated that he would "expedite" the process, but that "nothing would happen tonight". He would present the case to the [facility] and [facility] Board in AM, then would need concurring and Dr. Salazar to sign off. continue alb 2.5/3% Na q6H 10/31/18 1800 ABG 7.49/62/33/92% (2) Hypernatremia Status: Acute Problem Text: 11/06 resolved, NA 141, cont to monitor. 11/05 sodium corrected overnight with D5W, will stop this supplemental fluid for now. 11/04: Still High, will d/c current IV fluid, change to D5W at 60, continue parenteral nutrition baseline NA low 140s c HILARY I 11/03 153 + PPN to IVF 10/31 153; therefore, increased to 120H-favor increased insensible loss c persistent free H20 deficit 10/30 150 (150) favor 2 dehydration; therefore, /2 NS 80H (3) Oropharyngeal dysphagia Status: Chronic Problem Text: 11/05: gag is visualized today on exam but also has large retropharyngeal salivary pool indicating decreased clearing. 11/03/18 + PPN [employer] on pureed/nectar currently no gag reflex plan bedside eval if improves 10/19- admission for R facial droop-obvious concern for TIA, now c CVA- patient remains too unstable for neuro-imaging 09/2018 - Lyme 10/31/18 iniguez for other causes of dysphagia (not cw GBS) 10/20/18 MRI/MRA brain: 1. There is chronic microvascular disease. 2. No acute intracranial lesion or injury. 1. Probable small, less than 2 mm on the left and left and 1 mm on the right, bilateral posterior communicating artery infundibula. No definite aneurysm. 2. No intracranial stenosis or occlusion. 10/19/18 TTE: 1. Normal left ventricle internal dimensions and wall thickness. Normal regional LV wall motion and wall thickening. Normal LV systolic function. Grade 1 LV diastolic dysfunction. 2. Otherwise normal echocardiogram Doppler findings. (4) Developmental disability Status: Chronic Response to Treatment: Stable Problem Text: no HCP/legal guardian decisions care per [facility] as of now, FULL CODE status (5) Aspiration pneumonia Status: Acute Problem Text: 11/06 Zosyn D7. Tmax 100.7 cont to monitor. 11/05/ will check CXR in am to see if he has any clearing. D6 antibiotics. sufficiently stable to transfer to floor with cont. O2 monitoring D5 pip/lizeth remains NPO/asp precautions 11/02/18: WBC continues to improve along with clinical presentation. continue to wean off of oxygen needs. Continue CPT and suctioning. 11/01/18: WBC improved at 17,000. 10/29 CT chest: 1. Airspace consolidations in the bilateral dependent lower lobes significantly larger on the right. 2. Aspirated material in the bronchus intermedius and right lower lobe bronchus. (6) CKD (chronic kidney disease), stage III Status: Chronic Problem Text: 11/01/18: Cr. stable at 1.2 Cr 1.6, baseline 1.0-1.2. IVF ordered for fluid [id number] NS at 100 cc per hour. (7) Schizophrenia Status: Chronic Problem Text: c ho severe agitation 10/30 given NPO status, DVP changed to IV. traz 50 QHS, ris 3 BID, quet 200 QHS on hold c tory 0.5 q6 IV prn and + halo 0.5 IV q6H (hold for sedation) (8) GERD (gastroesophageal reflux disease) Status: Chronic Problem Text: IV Protonix (9) IFG (impaired fasting glucose) Status: Chronic Problem Specific Plan: Monitor Clinically, Repeat Labs Problem Text: [email or web address] 6.0 09/2018 Plan/VTE VTE Prophylaxis Ordered?: Yes Plan Family Medicine Attending Note: I saw and examined Mr. Laureano, discussed with KACEY Pacheco. Agree with her note as documented. We discussed his case with Hazel of case management of this morning. She had further communications with mental health legal services and the [facility] guardianship committee. Later in the day she reported to me that the [facility] guardianship committee did not believe that he met criteria for a DNR and therefore will not authorize it. They're asking us to move forward with his treatment including PEG or J-tube placement with his current advanced directives. Apparently they understand that this may require coding him or intubation and ventilation but believe that that is an acceptable risk. 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) VS, I&O, 24H, [facility] Vital Signs/I&O Vital Signs Date Time Temp Pulse Resp B/P (MAP) Pulse Ox O2 Delivery O2 Flow Rate FiO2 11/06/18 06:00 100.7 91 20 147/80 (102) 91 11/04/18 23:01 Room Air 11/04/18 04:00 4.0 11/03/18 08:00 I&O- Last 24 Hours up to 6 AM 11/06/18 06:00 Intake Total 762.5 ml Balance 762.5 ml Laboratory Data 24H LABS Laboratory Tests 2 11/05/18 11:36: Bedside Glucose (Misc Panel) 97 11/05/18 17:11: Bedside Glucose (Misc Panel) 92 11/05/18 23:54: Bedside Glucose (Misc Panel) 102 11/06/18 05:44: Bedside Glucose (Misc Panel) 94 11/06/18 06:04: Immature Granulocyte % (Auto) 4.3H, White Blood Count 18.0H, Red Blood Count 3.53L, Hemoglobin 10.8L, Hematocrit 32.5L, Mean Corpuscular Volume 92.1, Mean Corpuscular Hemoglobin 30.6, Mean Corpuscular Hemoglobin Concent 33.2, Red Cell Distribution Width 14.7H, Platelet Count 202, Neutrophils (%) (Auto) 79.9H, Lymphocytes (%) (Auto) 6.0L, Monocytes (%) (Auto) 8.4H, Eosinophils (%) (Auto) 0.9, Basophils (%) (Auto) 0.5, Neutrophils # (Auto) 14.4H, Lymphocytes # (Auto) 1.1L, Monocytes # (Auto) 1.5H, Eosinophils # (Auto) 0.2, Basophils # (Auto) 0.1, Nucleated Red Blood Cells % (auto) 0.0, Anion Gap 6L, Glomerular Filtration Rate > 60.0, Blood Urea Nitrogen 28H, Creatinine 1.04, Sodium Level 141, Potassium Level 3.6, Chloride Level 108H, Carbon Dioxide Level 27, Calcium Level 7.3L, Aspartate Amino Transf (AST/SGOT) 45H, Alanine Aminotransferase (ALT/SGPT) 18, Alkaline Phosphatase 71, Total Bilirubin 0.6, Total Protein 5.4L, Albumin 1.0L, Albumin/Globulin Ratio 0.23L 11/06/18 06:06: Lactic Acid Level 1.6 CBC/BMP Laboratory Tests 11/06/18 06:04 Red Blood Count 3.53 L, Mean Corpuscular Volume 92.1, Mean Corpuscular Hemoglobin 30.6, Mean Corpuscular Hemoglobin Concent 33.2, Red Cell Distribution Width 14.7 H, Neutrophils (%) (Auto) 79.9 H, Lymphocytes (%) (Auto) 6.0 L, Monocytes (%) (Auto) 8.4 H, Eosinophils (%) (Auto) 0.9, Basophils (%) (Auto) 0.5, Neutrophils # (Auto) 14.4 H, Lymphocytes # (Auto) 1.1 L, Monocytes # (Auto) 1.5 H, Eosinophils # (Auto) 0.2, Basophils # (Auto) 0.1, Calcium Level 7.3 L, Aspartate Amino Transf (AST/SGOT) 45 H, Alanine Aminotransferase (ALT/SGPT) 18, Alkaline Phosphatase 71, Total Bilirubin 0.6, Total Protein 5.4 L, Albumin 1.0 L Microbiology Microbiology 10/29/18 Blood Culture - Final, Complete NO GROWTH AFTER 5 DAYS 10/29/18 Blood Culture - Final, Complete NO GROWTH AFTER 5 DAYS ISIDRO EDEN PA-C Nov 06, 2018 10:15 Jono Davis MD Nov 06, 2018 17:43
[2018-11-06] MEDS: VALPROATE SOD INJ 500 MG in D5W MINI-BAG PLUS 50 ML IV SCH (10:18)
[2018-11-06 10:30] VITALS: O2SAT 90
--- NOTE | 2018-11-06 12:21 | REP ---
Chest x-ray: Two views. History: Follow-up pneumonia. Comparison chest x-ray: October 29, 2018. Findings: The lungs are symmetrically aerated. No infiltrate is seen. Pleural angles are sharp. Heart size is normal. Pulmonary vasculature is not increased. Impression: No acute disease. Electronically Signed by Mushtaq Quesada MD 11/06/2018 09:20 A
[2018-11-06] MEDS: AMINO AC/ELECTROLYTE/DEX/CALC 1,000 ML IV SCH (12:58)
[2018-11-06 14:56] VITALS: BP 149/83
[2018-11-06 16:25] VITALS: O2SAT 91
[2018-11-06] MEDS ORDERED: FAT EMULSION IV 20% 500 ML IV SCH (18:00)
[2018-11-06 21:27] VITALS: BP 146/84
[2018-11-06] MEDS: PANTOPRAZOLE 40MG INJ (PROTONIX) (C9113) IV SCH (21:48)
[2018-11-06] MEDS: VALPROATE SOD INJ 250 MG in D5W 50 ML IV SCH (21:49)
[2018-11-07] MEDS: PIPERACILLIN/TAZOBACTAM SOD 3.375 GM in D5W MINI-BAG PLUS 50 ML IV SCH ×4 (00:20→17:11)
[2018-11-07] MEDS: HumaLOG INSULIN (NovoLOG) PER UNIT SC SCH ×3 (00:20→12:00)
[2018-11-07] MEDS: SODIUM CHLORIDE HYPERTONIC 3% 15ML NEB SOL INH SCH ×4 (02:00→19:58)
[2018-11-07] MEDS: ALBUTEROL SULFATE 2.5 MG/0.5 ML INH NEB SOLN NEB SCH ×4 (02:00→19:58)
[2018-11-07] MEDS: HALOPERIDOL 5 MG/ML VIAL (J1630) IV SCH ×3 (06:07→22:51)
[2018-11-07] MEDS: AMINO AC/ELECTROLYTE/DEX/CALC 1,000 ML IV SCH ×2 (06:08→23:31)
[2018-11-07] MEDS: SLF 3 ML SYR IV SCH ×3 (06:08→22:00)
[2018-11-07 06:43] LABS: BASO # 0.1 10^3/uL (0.0-0.2); BASO % 0.5 % (0.0-1.0); EOS # 0.2 10^3/uL (0.0-0.5); EOS % 0.9 % (0.0-3.0); HEMATOCRIT 33.1 % (42.0-52.0); HEMOGLOBIN 11.2 g/dl (13.5-17.5); LYMPH % 5.3 % (24.0-44.0); MEAN CORPUSCULAR HGB CONC 33.8 g/dl (32.0-36.5); MEAN CORPUSCULAR VOLUME 91.7 fl (80.0-96.0); MONO # 1.7 10^3/uL (0.0-0.8); MONO % 9.3 % (0.0-5.0); NEUTROPHILS # 14.6 10^3/uL (1.5-8.5); NEUTROPHILS % 79.4 % (36.0-66.0); PLATELET COUNT, AUTOMATED 232 10^3/uL (150-450); RED BLOOD COUNT 3.61 10^6/uL (4.30-6.10); WHITE BLOOD COUNT 18.4 10^3/uL (4.0-10.0)
[2018-11-07 06:47] VITALS: BP 125/68
[2018-11-07 07:06] LABS: ALBUMIN 1.1 GM/DL (3.2-5.2); ALT/SGPT 19 U/L (12-78); BILIRUBIN,TOTAL 0.4 MG/DL (0.2-1.0); BLOOD UREA NITROGEN 29 MG/DL (7-18); CALCIUM LEVEL 7.6 MG/DL (8.8-10.2); CARBON DIOXIDE LEVEL 28 MEQ/L (21-32); CHLORIDE LEVEL 107 MEQ/L (98-107); CREATININE FOR GFR 1.03 MG/DL (0.70-1.30); GLOMERULAR FILTRATION RATE > 60.0 (>49); GLUCOSE, FASTING 102 MG/DL (70-100); POTASSIUM SERUM 3.5 MEQ/L (3.5-5.1); SODIUM LEVEL 143 MEQ/L (136-145); TOTAL PROTEIN 5.6 GM/DL (6.4-8.2)
[2018-11-07 07:57] VITALS: O2SAT 92
[2018-11-07] MEDS: VALPROATE SOD INJ 500 MG in D5W MINI-BAG PLUS 50 ML IV SCH (09:10)
[2018-11-07] MEDS: HEPARIN SOD (PORCINE) 5000 UNITS/ML VIAL SC SCH ×2 (09:10→20:38)
--- NOTE | 2018-11-07 11:27 | IPNPDOC ---
Subjective Date Seen The patient was seen on 11/07/18. Subjective Chief Complaint/HPI Patient lying in bed as I entered the room General: Reports: ROS Unobtainable Objective Physical Examination General Exam: Positive: Alert, Cooperative (non-verbal, holding staff hands. ), No Acute Distress Eye Exam: Positive: Ptosis (right eyelid); Negative: Sclera icteric ENT Exam: Positive: Mucous membr. moist/pink, Other ENT (large salivary pool in retropharynx.) Neck Exam: Positive: Supple; Negative: thyromegaly Chest Exam: Positive: Rhonchi, Other (bilateral basal crackles. poor air entry.); Negative: Wheezing Heart Exam: Positive: Rate Normal, Regular Rhythm, Normal S1, Normal S2; Negative: Murmurs, Rubs Telemetry: Positive: No significant arrhythmia Abdomen Exam: Positive: Normal bowel sounds, Soft; Negative: Tenderness, Hepatospenomegaly Extremity Exam: Positive: Edema (bilateral edema 1 mm), Swelling Skin Exam: Positive: Nl turgor and temperature Neuro Exam: Positive: Other (engages eye contact. no speech today.) Assessment /Plan Problems (1) Acute respiratory failure with hypoxia Status: Acute Response to Treatment: Progressing Problem Text: 11/07/18: Repeat CXR:No acute disease. He does require suctioning. [facility] and [facility] do not support DNR/DNI as they feel patient does not meet criteria. They want to move forward with PEG tube placement. 11/06, Tmas 100.7 this morning, repeat CXR pending, pt cont to demonstrate difficulty managing secretions therefore aspiration risk remains high, this risk will cont and possibly increase with placement of J tube. Will cont to work with [facility] to obtain completed MOLST prior to tube placement. 11/04: need approved checklist to issue DNR order to proceed with feeding tube placement. 11/03 checklist signed by [facility] rep (Dr. Salazar), but [facility] did not like "wording"; therefore, attempting to determine what verbiage needs to state 11/02 checklist requesting DNR/DNI completed for [facility] to approve, then for Dr. Salazar to sign. Apparently [facility] has approved PEG placement, but would favor DNR/DNI in place BEFOREHAND, given ho COMPLETE HEART BLOCK with previous colon oscopy. 10/31/18 increasing O2 requirement, now at HF 95% at 40L to maintain SaO2>94%; lane whaley [facility] Director that as patient's PCP for 15 years, would recommend DNR/DNI status-MOLST completed accordingly and gave to [facility] retail service representative at bedside. Mr. Wynne stated that he would "expedite" the process, but that "nothing would happen tonight". He would present the case to the [facility] and [facility] Board in AM, then would need concurring and Dr. Salazar to sign off. continue alb 2.5/3% Na q6H 10/31/18 1800 ABG 7.49/62/33/92% (2) Aspiration pneumonia Status: Acute Problem Text: 11/07/18: Day #8 Zoysn. WBC 18.4. T-Max 100.4. CXR negative. BC negative 11/06 Zosyn D7. Tmax 100.7 cont to monitor. 11/05/ will check CXR in am to see if he has any clearing. D6 antibiotics. sufficiently stable to transfer to floor with cont. O2 monitoring D5 pip/lizeth remains NPO/asp precautions 11/02/18: WBC continues to improve along with clinical presentation. continue to wean off of oxygen needs. Continue CPT and suctioning. 11/01/18: WBC improved at 17,000. 10/29 CT chest: 1. Airspace consolidations in the bilateral dependent lower lobes significantly larger on the right. 2. Aspirated material in the bronchus intermedius and right lower lobe bronchus. (3) Oropharyngeal dysphagia Status: Chronic Problem Text: 11/07/18: Patient has failed swallow eval. He remains NPO. Currently receiving TPN 11/05: gag is visualized today on exam but also has large retropharyngeal salivary pool indicating decreased clearing. 11/03/18 + PPN [employer] on pureed/nectar currently no gag reflex plan bedside eval if improves 10/19- admission for R facial droop-obvious concern for TIA, now c CVA- patient remains too unstable for neuro-imaging 09/2018 - Lyme 10/31/18 iniguez for other causes of dysphagia (not cw GBS) 10/20/18 MRI/MRA brain: 1. There is chronic microvascular disease. 2. No acute intracranial lesion or injury. 1. Probable small, less than 2 mm on the left and left and 1 mm on the right, bilateral posterior communicating artery infundibula. No definite aneurysm. 2. No intracranial stenosis or occlusion. 10/19/18 TTE: 1. Normal left ventricle internal dimensions and wall thickness. Normal regional LV wall motion and wall thickening. Normal LV systolic function. Grade 1 LV diastolic dysfunction. 2. Otherwise normal echocardiogram Doppler findings. (4) Hypernatremia Status: Acute Problem Text: 11/07/18: Remains WNL. We will continue to monitor 11/06 resolved, NA 141, cont to monitor. 11/05 sodium corrected overnight with D5W, will stop this supplemental fluid for now. 11/04: Still High, will d/c current IV fluid, change to D5W at 60, continue parenteral nutrition baseline NA low 140s c HILARY I 11/03 153 + PPN to IVF 10/31 153; therefore, increased to 120H-favor increased insensible loss c persistent free H20 deficit 10/30 150 (150) favor 2 dehydration; therefore, / NS 80H (5) Developmental disability Status: Chronic Response to Treatment: Stable Problem Text: no HCP/legal guardian decisions care per [facility] as of now, FULL CODE status (6) CKD (chronic kidney disease), stage III Status: Chronic Problem Text: 11/01/18: Cr. stable at 1.2 Cr 1.6, baseline 1.0-1.2. IVF ordered for fluid [id number] NS at 100 cc per hour. (7) Schizophrenia Status: Chronic Problem Text: c ho severe agitation 10/30 given NPO status, DVP changed to IV. traz 50 QHS, ris 3 BID, quet 200 QHS on hold c tory 0.5 q6 IV prn and + halo 0.5 IV q6H (hold for sedation) (8) GERD (gastroesophageal reflux disease) Status: Chronic Problem Text: IV Protonix (9) IFG (impaired fasting glucose) Status: Chronic Problem Specific Plan: Monitor Clinically, Repeat Labs Problem Text: [email or web address] 6.0 09/2018 Plan/VTE VTE Prophylaxis Ordered?: Yes VS, I&O, 24H, Fishbone Vital Signs/I&O Vital Signs Date Time Temp Pulse Resp B/P (MAP) Pulse Ox O2 Delivery O2 Flow Rate FiO2 11/07/18 07:57 92 Room Air 11/07/18 06:47 100.6 76 16 125/68 (87) 11/04/18 04:00 4.0 11/03/18 08:00 I&O- Last 24 Hours up to 6 AM 11/07/18 06:00 Intake Total 1322.5 ml Balance 1322.5 ml Laboratory Data 24H LABS Laboratory Tests 2 11/06/18 11:59: Bedside Glucose (Misc Panel) 99 11/06/18 17:24: Bedside Glucose (Misc Panel) 98 11/07/18 00:07: Bedside Glucose (Misc Panel) 101 11/07/18 06:13: Bedside Glucose (Misc Panel) 87 11/07/18 06:30: Immature Granulocyte % (Auto) 4.6H, White Blood Count 18.4H, Red Blood Count 3.61L, Hemoglobin 11.2L, Hematocrit 33.1L, Mean Corpuscular Volume 91.7, Mean Corpuscular Hemoglobin 31.0, Mean Corpuscular Hemoglobin Concent 33.8, Red Cell Distribution Width 14.6H, Platelet Count 232, Neutrophils (%) (Auto) 79.4H, Lymphocytes (%) (Auto) 5.3L, Monocytes (%) (Auto) 9.3H, Eosinophils (%) (Auto) 0.9, Basophils (%) (Auto) 0.5, Neutrophils # (Auto) 14.6H, Lymphocytes # (Auto) 1.0L, Monocytes # (Auto) 1.7H, Eosinophils # (Auto) 0.2, Basophils # (Auto) 0.1, Nucleated Red Blood Cells % (auto) 0.0, Anion Gap 8, Glomerular Filtration Rate > 60.0, Blood Urea Nitrogen 29H, Creatinine 1.03, Sodium Level 143, Potassium Le lexi 3.5, Chloride Level 107, Carbon Dioxide Level 28, Calcium Level 7.6L, Aspartate Amino Transf (AST/SGOT) 39H, Alanine Aminotransferase (ALT/SGPT) 19, Alkaline Phosphatase 68, Total Bilirubin 0.4, Total Protein 5.6L, Albumin 1.1L, Albumin/Globulin Ratio 0.24L CBC/BMP Laboratory Tests 11/07/18 06:30 Red Blood Count 3.61 L, Mean Corpuscular Volume 91.7, Mean Corpuscular Hemog lobin 31.0, Mean Corpuscular Hemoglobin Concent 33.8, Red Cell Distribution Width 14.6 H, Neutrophils (%) (Auto) 79.4 H, Lymphocytes (%) (Auto) 5.3 L, Monocytes (%) (Auto) 9.3 H, Eosinophils (%) (Auto) 0.9, Basophils (%) (Auto) 0.5, Neutrophils # (Auto) 14.6 H, Lymphocytes # (Auto) 1.0 L, Monocytes # (Auto) 1.7 H, Eosinophils # (Auto) 0.2, Basophils # (Auto) 0.1, Calcium Level 7.6 L, Aspartate Amino Transf (AST/SGOT) 39 H, Alanine Aminotransferase (ALT/SGPT) 19, Alkaline Phosphatase 68, Total Bilirubin 0.4, Total Protein 5.6 L, Albumin 1.1 L Microbiology Microbiology 10/29/18 Blood Culture - Final, Complete NO GROWTH AFTER 5 DAYS 10/29/18 Blood Culture - Final, Complete NO GROWTH AFTER 5 DAYS CHICO ROBERSON CUT OUT PRESS OPERATOR Nov 07, 2018 11:27
[2018-11-07 14:00] VITALS: BP 155/81
[2018-11-07 20:19] VITALS: BP 124/91
[2018-11-07] MEDS: PANTOPRAZOLE 40MG INJ (PROTONIX) (C9113) IV SCH (20:36)
[2018-11-07] MEDS: VALPROATE SOD INJ 250 MG in D5W 50 ML IV SCH (20:37)
[2018-11-07] MEDS: ACETAMINOPHEN 650 MG SUPP PR PRN (20:38)
[2018-11-07] MEDS: FAT EMULSION IV 20% 500 ML IV SCH (23:31)
[2018-11-08 00:06] LABS: ACETYLCHOLINE RCPTOR BINDING A 0.13 nmol/L (0.00-0.24); ACETYLCHOLINE RCPTOR BLOCK AB 25 % (0-25); ACETYLCHOLINE RCPTOR MODULATIN <12 % (0-20)
[2018-11-08] MEDS: ALBUTEROL SULFATE 2.5 MG/0.5 ML INH NEB SOLN NEB SCH ×5 (00:32→23:19)
[2018-11-08] MEDS: SODIUM CHLORIDE HYPERTONIC 3% 15ML NEB SOL INH SCH ×5 (00:33→23:19)
[2018-11-08] MEDS: PIPERACILLIN/TAZOBACTAM SOD 3.375 GM in D5W MINI-BAG PLUS 50 ML IV SCH ×5 (00:36→23:51)
[2018-11-08 00:47] VITALS: O2SAT 98
[2018-11-08] MEDS: HALOPERIDOL 5 MG/ML VIAL (J1630) IV SCH ×3 (05:19→21:00)
[2018-11-08] MEDS: SLF 3 ML SYR IV SCH ×3 (05:19→21:01)
[2018-11-08 06:05] VITALS: BP 125/66
[2018-11-08 06:24] LABS: ALT/SGPT 16 U/L (12-78); BILIRUBIN,TOTAL 0.4 MG/DL (0.2-1.0); BLOOD UREA NITROGEN 29 MG/DL (7-18); CALCIUM LEVEL 7.3 MG/DL (8.8-10.2); CARBON DIOXIDE LEVEL 26 MEQ/L (21-32); CHLORIDE LEVEL 105 MEQ/L (98-107); CREATININE FOR GFR 1.04 MG/DL (0.70-1.30); GLOMERULAR FILTRATION RATE > 60.0 (>49); GLUCOSE, FASTING 111 MG/DL (70-100); POTASSIUM SERUM 3.7 MEQ/L (3.5-5.1); SODIUM LEVEL 139 MEQ/L (136-145); TOTAL PROTEIN 5.3 GM/DL (6.4-8.2)
[2018-11-08 06:42] LABS: BASO % 0.3 % (0.0-1.0); EOS # 0.1 10^3/uL (0.0-0.5); EOS % 0.7 % (0.0-3.0); HEMATOCRIT 33.1 % (42.0-52.0); LYMPH # 0.9 10^3/uL (1.5-5.0); LYMPH % 6.1 % (24.0-44.0); MEAN CORPUSCULAR HEMOGLOBIN 29.8 pg (27.0-33.0); MEAN CORPUSCULAR HGB CONC 33.2 g/dl (32.0-36.5); MEAN CORPUSCULAR VOLUME 89.7 fl (80.0-96.0); MONO # 1.6 10^3/uL (0.0-0.8); MONO % 10.8 % (0.0-5.0); NEUTROPHILS # 11.6 10^3/uL (1.5-8.5); NEUTROPHILS % 78.8 % (36.0-66.0); RED BLOOD COUNT 3.69 10^6/uL (4.30-6.10); WHITE BLOOD COUNT 14.8 10^3/uL (4.0-10.0)
[2018-11-08] MEDS: VALPROATE SOD INJ 500 MG in D5W MINI-BAG PLUS 50 ML IV SCH (08:06)
[2018-11-08] MEDS: HEPARIN SOD (PORCINE) 5000 UNITS/ML VIAL SC SCH ×2 (08:06→21:00)
--- NOTE | 2018-11-08 08:18 | IPNPDOC ---
Subjective Date Seen The patient was seen on 11/08/18. Subjective Chief Complaint/HPI Per Speech Therapy, scapolamine patch is recommended Constitutional: Denies: Chills, Fever Pulmonary: Denies: Dyspnea, Cough Cardiovascular: Denies: Chest Pain, Palpitations Gastrointestinal: Denies: Nausea, Vomiting, Diarrhea, Constipation Objective Physical Examination General Exam: Positive: Alert, Cooperative (non-verbal, holding staff hands. ), No Acute Distress Eye Exam: Positive: Ptosis (right eyelid); Negative: Sclera icteric ENT Exam: Positive: Mucous membr. moist/pink, Other ENT (large salivary pool in retropharynx.) Neck Exam: Positive: Supple; Negative: thyromegaly Chest Exam: Positive: Other (refferred upper airway sounds BL); Negative: Rhonchi, Wheezing, Diminished Heart Exam: Positive: Rate Normal, Regular Rhythm, Normal S1, Normal S2; Negative: Murmurs, Rubs Telemetry: Positive: No significant arrhythmia Abdomen Exam: Positive: Normal bowel sounds, Soft; Negative: Tenderness, Hepatospenomegaly Extremity Exam: Positive: Edema (bilateral edema 1 mm), Swelling Skin Exam: Positive: Nl turgor and temperature Neuro Exam: Positive: Other (engages eye contact. no speech today.) Assessment /Plan Problems (1) Acute respiratory failure with hypoxia Status: Acute Response to Treatment: Progressing Problem Text: 11/08/18 - Add Scapolamine patch per ST. Plan PEG (Dr. Fletcher Consulted) 11/07/18: Repeat CXR:No acute disease. He does require suctioning. [facility] and [facility] do not support DNR/DNI as they feel patient does not meet criteria. They want to move forward with PEG tube placement. 11/06, Tmas 100.7 this morning, repeat CXR pending, pt cont to demonstrate difficulty managing secretions therefore aspiration risk remains high, this risk will cont and possibly increase with placement of J tube. Will cont to work with [facility] to obtain completed MOLST prior to tube placement. 11/04: need approved checklist to issue DNR order to proceed with feeding tube placement. 11/03 checklist signed by [facility] rep (Dr. Salazar), but [facility] did not like "w ording"; therefore, attempting to determine what verbbella needs to state 11/02 checklist requesting DNR/DNI completed for [facility] to approve, then for Dr. Salazar to sign. Apparently [facility] has approved PEG placement, but would favor DNR/DNI in place BEFOREHAND, given ho COMPLETE HEART BLOCK with previous colonoscopy. 10/31/18 increasing O2 requirement, now at HF 95% at 40L to maintain SaO2>94%; lane whaley [facility] Director that as patient's PCP for 15 years, would recommend DNR/DNI status-MOLST completed accordingly and gave to [facility] passenger service representative at bedside. Mr. Wynne stated that he would "expedite" the process, but that "nothing would happen tonight". He would present the case to the [facility] and [facility] Board in AM, then would need concurring and Dr. Salazar to sign off. continue alb 2.5/3% Na q6H 10/31/18 1800 ABG 7.49/62/33/92% (2) Aspiration pneumonia Status: Acute Problem Text: 11/08 - Zosyn D#9 - WBC trending down, but continues to spike temps - Tmax 101.6 last pm F/U CXR 11/07 - negative 11/07/18: Day #8 Zoysn. WBC 18.4. T-Max 100.4. CXR negative. BC negative 11/06 Zosyn D7. Tmax 100.7 cont to monitor. 11/05/ will check CXR in am to see if he has any clearing. D6 antibiotics. sufficiently stable to transfer to floor with cont. O2 monitoring D5 pip/lizeth remains NPO/asp precautions 11/02/18: WBC continues to improve along with clinical presentation. continue to wean off of oxygen needs. Continue CPT and suctioning. 11/01/18: WBC improved at 17,000. 10/29 CT chest: 1. Airspace consolidations in the bilateral dependent lower lobes significantly larger on the right. 2. Aspirated material in the bronchus intermedius and right lower lobe bronchus. (3) Oropharyngeal dysphagia Status: Chronic Problem Text: 11/08/18: Patient has failed swallow eval. He remains NPO. Currently receiving TPN, surgery consulted for PEG 11/05: gag is visualized today on exam but also has large retropharyngeal salivary pool indicating decreased clearing. 11/03/18 + PPN [employer] INST[employer]ER on pureed/nectar currently no gag reflex plan bedside eval if improves 10/19- admission for R facial droop-obvious concern for TIA, now c CVA- patient remains too unstable for neuro-imaging 09/2018 - Lyme 10/31/18 iniguez for other causes of dysphagia (not cw GBS) 10/20/18 MRI/MRA brain: 1. There is chronic microvascular disease. 2. No acute intracranial lesion or injury. 1. Probable small, less than 2 mm on the left and left and 1 mm on the right, bilateral posterior communicating artery infundibula. No definite aneurysm. 2. No intracranial stenosis or occlusion. 10/19/18 TTE: 1. Normal left ventricle internal dimensions and wall thickness. Normal regional LV wall motion and wall thickening. Normal LV systolic function. Grade 1 LV diastolic dysfunction. 2. Otherwise normal echocardiogram Doppler findings. (4) Hypernatremia Status: Acute Problem Text: 11/07/18: Remains WNL. We will continue to monitor 11/06 resolved, NA 141, cont to monitor. 11/05 sodium corrected overnight with D5W, will stop this supplemental fluid for now. 11/04: Still High, will d/c current IV fluid, change to D5W at 60, continue parenteral nutrition baseline NA low 140s c HILARY I 11/03 153 + PPN to IVF 10/31 153; therefore, increased to 120H-favor increased insensible loss c persistent free H20 deficit 10/30 150 (150) favor 2 dehydration; therefore, 1/2 NS 80H (5) Developmental disability Status: Chronic Response to Treatment: Stable Problem Text: no HCP/legal guardian decisions [facility] as [facility] now, FULL CODE status (6) CKD (chronic kidney disease), stage III Status: Chronic Problem Text: 11/01/18: Cr. stable at 1.2 Cr 1.6, baseline 1.0-1.2. IVF ordered for fluid [id number] NS at 100 cc per hour. (7) Schizophrenia Status: Chronic Problem Text: c ho severe agitation 10/30 given NPO status, DVP changed to IV. traz 50 QHS, ris 3 BID, quet 200 QHS on hold c tory 0.5 q6 IV prn and + halo 0.5 IV q6H (hold for sedation) (8) GERD (gastroesophageal reflux disease) Status: Chronic Problem Text: IV Protonix (9) IFG (impaired fasting glucose) Status: Chronic Problem Specific Plan: Monitor Clinically, Repeat Labs Problem Text: [id number] 6.0 09/2018 Plan/VTE VTE Prophylaxis Ordered?: Yes Plan Therapy: PT, OT Disposition Surgery consulted for PEG. Start PT/OT VS, I&O, 24H, Fishbone Vital Signs/I&O Vital Signs Date Time Temp Pulse Resp B/P (MAP) Pulse Ox O2 Delivery O2 Flow Rate FiO2 11/08/18 06:05 98.9 88 18 125/66 (85) 92 11/08/18 00:47 Room Air 11/04/18 04:00 4.0 11/03/18 08:00 I&O- Last 24 Hours up to 6 AM 11/08/18 06:00 Intake Total 0 ml Balance 0 ml Laboratory Data 24H LABS Laboratory Tests 2 11/07/18 12:34: Bedside Glucose (Misc Panel) 113 11/07/18 17:33: Bedside Glucose (Misc Panel) 117H 11/08/18 00:11: Bedside Glucose (Misc Panel) 102 11/08/18 05:46: Anion Gap 8, Glomerular Filtration Rate > 60.0, Blood Urea Nitrogen 29H, Creatinine 1.04, Sodium Level 139, Potassium Level 3.7, Chloride Level 105, Carbon Dioxide Level 26, Calcium Level 7.3L, Aspartate Amino Transf (AST/SGOT) 34, Alanine Aminotransferase (ALT/SGPT) 16, Alkaline Phosphatase 63, Total Bi lirubin 0.4, Total Protein 5.3L, Albumin 1.0L, Albumin/Globulin Ratio 0.23L 11/08/18 06:18: Immature Granulocyte % (Auto) 3.3H, White Blood Count 14.8H, Red Blood Count 3.69L, Hemoglobin 11.0L, Hematocrit 33.1L, Mean Corpuscular Volume 89.7, Mean Corpuscular Hemoglobin 29.8, Mean Corpuscular Hemoglobin Concent 33.2, Red Cell Distribution Width 14.8H, Platelet Count , Neutrophils (%) (Auto) 78.8H, Lymphocytes (%) (Auto) 6.1L, Monocytes (%) (Auto) 10.8H, Eosinophils (%) (Auto) 0.7, Basophils (%) (Auto) 0.3, Neutrophils # (Auto) 11.6H, Lymphocytes # (Auto) 0.9L, Monocytes # (Auto) 1.6H, Eosinophils # (Auto) 0.1, Basophils # (Auto) 0.0, Nucleated Red Blood Cells % (auto) 0.0 CBC/BMP Laboratory Tests 11/08/18 05:46 Calcium Level 7.3 L, Aspartate Amino Transf (AST/SGOT) 34, Alanine Aminotransferase (ALT/SGPT) 16, Alkaline Phosphatase 63, Total Bilirubin 0.4, Total Protein 5.3 L, Albumin 1.0 L 11/08/18 06:18 Red Blood Count 3.69 L, Mean Corpuscular Volume 89.7, Mean Corpuscular Hemoglobin 29.8, Mean Corpuscular Hemoglobin Concent 33.2, Red Cell Distribution Width 14.8 H, Neutrophils (%) (Auto) 78.8 H, Lymphocytes (%) (Auto) 6.1 L, Monocytes (%) (Auto) 10.8 H, Eosinophils (%) (Auto) 0.7, Basophils (%) (Auto) 0.3, Neutrophils # (Auto) 11.6 H, Lymphocytes # (Auto) 0.9 L, Monocytes # (Auto) 1.6 H, Eosinophils # (Auto) 0.1, Basophils # (Auto) 0.0 Microbiology Microbiology 10/29/18 Blood Culture - Final, Complete NO GROWTH AFTER 5 DAYS 10/29/18 Blood Culture - Final, Complete NO GROWTH AFTER 5 DAYS ALLEN SEBASTIAN PA-C Nov 08, 2018 08:18
[2018-11-08] MEDS: SCOPOLAMINE 1MG TRANSDERMAL PATCH TOP SCH (08:43)
[2018-11-08] MEDS: AMINO AC/ELECTROLYTE/DEX/CALC 1,000 ML IV SCH (10:41)
[2018-11-08 14:22] VITALS: BP 132/80
[2018-11-08] MEDS: ACETAMINOPHEN 650 MG SUPP PR PRN (14:25)
[2018-11-08] MEDS: HumaLOG INSULIN (NovoLOG) PER UNIT SC SCH ×2 (17:30→23:52)
[2018-11-08] MEDS: FAT EMULSION IV 20% 500 ML IV SCH (17:30)
--- NOTE | 2018-11-08 19:57 | CR ---
DATE OF CONSULTATION: 11/08/2018 REASON FOR CONSULTATION: Consideration for percutaneous endoscopic gastrostomy tube for aspiration pneumonia. BRIEF HISTORY OF PRESENT ILLNESS: Patient is a 68-year-old male who is a morris of the [facility] ([facility]) resident, who has moderate intellectual disability, schizophrenia, who presents with essentially aspiration pneumonia and difficulty with secretion management. Despite being nothing by mouth for several days, he still has be suctioned because of secretions that are problematic for him. In any case, I have been asked to see him for possible percutaneous endoscopic gastrostomy (PEG) tube placement. He has had some chronic dysphagia issues, has been on a modified diet for quite awhile now. Currently, he still has an elevated white count and he has had some fever spikes over the last several days. PAST MEDICAL HISTORY: Significant for: 1. History of gastroesophageal (GE) reflux. 2. History of Ramirez's palsy. 3. History of pneumonia. 4. History of chronic dysphagia. 5. History of complete heart block with symptomatic bradycardia during routine esophagogastroduodenoscopy (EGD)/colonoscopy. 6. History of moderate intellectual disability. 7. Schizophrenia with aggressive behavior. 8. History of chronic kidney disease. MEDICATIONS: Include: - vitamin D - <<2:04>> - Colace - doxycycline - levofloxacin - Ativan - Milk of Magnesia - Seroquel - quetiapine fumarate - ranitidine - risperidone - trazodone - vitamin E - some as needed respiratory medications PHYSICAL EXAMINATION: Reveals a 68-year-old male who looks stated age. He is able to respond, but not to specific commands. He has obvious secretions in back of his posterior oropharynx. When he is breathing, he rattles and it is mostly upper airway sounds that I hear on his lung exam. Heart is regular. Abdomen is soft, nontender, nondistended. IMPRESSION AND PLAN: Patient has evidence of aspiration pneumonia. Unfortunately, I anticipate he will continue with aspirating his secretions in the future and the PEG tube will not stop these types of aspirations that occur. I do feel that he does need a gastrostomy tube for feeding, if that is so desired by the caregiver/power of claim attorney; however, I would recommend waiting until his white count returns to normal and that he has been afebrile for at least 24 hours. Options of gastrostomy tube placement obviously are two types. One is percutaneous endoscopic, which is placed endoscopically, and the second is percutaneous, through the interventional radiologist. Interventional radiology, as well as endoscopic, are reasonable from a procedure standpoint; however, I am concerned that anesthesia will be very reluctant to proceed with this with the amount of secretions that he currently has and his history of bradycardia/heart block. My recommendation is that an anesthesia consult is obtained to optimize him/clear him for operative intervention or, if they so recommend, that possibly just minimal sedation with an interventional radiology approach instead. In any case, I will follow his temperature and white blood cell curve and depending on this, will determine our next step.
[2018-11-08 20:01] VITALS: O2SAT 95
[2018-11-08] MEDS: PANTOPRAZOLE 40MG INJ (PROTONIX) (C9113) IV SCH (20:59)
[2018-11-08] MEDS: VALPROATE SOD INJ 250 MG in D5W 50 ML IV SCH (21:00)
[2018-11-08 21:26] VITALS: BP 158/74
[2018-11-09] MEDS: AMINO AC/ELECTROLYTE/DEX/CALC 1,000 ML IV SCH ×2 (02:31→19:38)
[2018-11-09 05:56] LABS: BASO # 0.1 10^3/uL (0.0-0.2); BASO % 0.3 % (0.0-1.0); EOS # 0.3 10^3/uL (0.0-0.5); EOS % 1.9 % (0.0-3.0); HEMATOCRIT 28.3 % (42.0-52.0); HEMOGLOBIN 9.7 g/dl (13.5-17.5); LYMPH # 0.8 10^3/uL (1.5-5.0); MEAN CORPUSCULAR HEMOGLOBIN 30.8 pg (27.0-33.0); MEAN CORPUSCULAR HGB CONC 34.3 g/dl (32.0-36.5); MEAN CORPUSCULAR VOLUME 89.8 fl (80.0-96.0); MONO # 1.9 10^3/uL (0.0-0.8); MONO % 11.3 % (0.0-5.0); NEUTROPHILS # 12.9 10^3/uL (1.5-8.5); NEUTROPHILS % 78.6 % (36.0-66.0); RED BLOOD COUNT 3.15 10^6/uL (4.30-6.10); WHITE BLOOD COUNT 16.5 10^3/uL (4.0-10.0)
[2018-11-09 06:17] VITALS: BP 141/74
[2018-11-09] MEDS: SLF 3 ML SYR IV SCH ×3 (06:22→21:55)
[2018-11-09] MEDS: HALOPERIDOL 5 MG/ML VIAL (J1630) IV SCH ×3 (06:22→21:55)
[2018-11-09] MEDS: PIPERACILLIN/TAZOBACTAM SOD 3.375 GM in D5W MINI-BAG PLUS 50 ML IV SCH ×3 (06:22→18:10)
[2018-11-09] MEDS: HumaLOG INSULIN (NovoLOG) PER UNIT SC SCH ×3 (06:23→18:00)
[2018-11-09 06:24] LABS: ALT/SGPT 16 U/L (12-78); BILIRUBIN,TOTAL 0.5 MG/DL (0.2-1.0); BLOOD UREA NITROGEN 28 MG/DL (7-18); CALCIUM LEVEL 7.1 MG/DL (8.8-10.2); CARBON DIOXIDE LEVEL 26 MEQ/L (21-32); CHLORIDE LEVEL 104 MEQ/L (98-107); CREATININE FOR GFR 0.99 MG/DL (0.70-1.30); GLOMERULAR FILTRATION RATE > 60.0 (>49); GLUCOSE, FASTING 102 MG/DL (70-100); SODIUM LEVEL 139 MEQ/L (136-145); TOTAL PROTEIN 4.9 GM/DL (6.4-8.2)
[2018-11-09] MEDS ORDERED: VALPROATE SOD INJ 500 MG in D5W 50 ML IV SCH (06:32)
[2018-11-09] MEDS: ALBUTEROL SULFATE 2.5 MG/0.5 ML INH NEB SOLN NEB SCH ×3 (07:15→20:17)
[2018-11-09] MEDS: SODIUM CHLORIDE HYPERTONIC 3% 15ML NEB SOL INH SCH ×3 (07:15→20:17)
--- NOTE | 2018-11-09 09:02 | IPNPDOC ---
Subjective Date Seen The patient was seen on 11/09/18. Subjective Chief Complaint/HPI Pt this morning with [facility] staff at bedside. He has no new concerns. States that Joel appears to be more alert today, he has made more attempts to comminicate. General: Reports: ROS Unobtainable Objective Physical Examination General Exam: Positive: Alert, Cooperative (non-verbal, reaches for my hands), No Acute Distress Eye Exam: Positive: Ptosis (right eyelid); Negative: Sclera icteric ENT Exam: Positive: Mucous membr. moist/pink Neck Exam: Positive: Supple; Negative: thyromegaly Chest Exam: Positive: Rhonchi, Other (referred upper airway sounds BL); Negative: Wheezing, Diminished Heart Exam: Positive: Rate Normal, Regular Rhythm, Normal S1, Normal S2; Negative: Murmurs, Rubs Telemetry: Positive: No significant arrhythmia Abdomen Exam: Positive: Normal bowel sounds, Soft; Negative: Tenderness, Hepatospenomegaly Extremity Exam: Positive: Edema (diffusely edematous with 1 mm pitting edema of BLE, BUE.), Swelling Skin Exam: Positive: Nl turgor and temperature Neuro Exam: Positive: Other (engages eye contact. no speech today.) Assessment /Plan Problems (1) Acute respiratory failure with hypoxia Status: Acute Response to Treatment: Progressing Problem Text: 11/09 Await PEG placement, will cont with PPN until PEG placed. Resp status stable with room air O2. 11/08/18 - Add Scapolamine patch per ST. Plan PEG (Dr. Fletcher Consulted) 11/07/18: Repeat CXR:No acute disease. He does require suctioning. [facility] and [facility] d o not support DNR/DNI as they feel patient does not meet criteria. They want to move forward with PEG tube placement. 11/06, Tmas 100.7 this morning, repeat CXR pending, pt cont to demonstrate difficu lty managing secretions therefore aspiration risk remains high, this risk will cont and possibly increase with placement of J tube. Will cont to work with [facility] to obtain completed MOLST prior to tube placement. 11/04: need approved checklist to issue DNR order to proceed with feeding tube placement. 11/03 checklist signed by [facility] rep (Dr. Salazar), but [facility] did not like "wording"; therefore, attempting to determine what verbmarckge needs to state 11/02 checklist requesting DNR/DNI completed for [facility] to approve, then for Dr. Salazar to sign. Apparently [facility] has approved PEG placement, but would favor DNR/DNI in place BEFOREHAND, given ho COMPLETE HEART BLOCK with previous colonoscopy. 10/31/18 increasing O2 requirement, now at HF 95% at 40L to maintain SaO2>94%; lane whaley [facility] Director that as patient's PCP for 15 years, would recommend DNR/DNI status-MOLST completed accordingly and gave to [facility] escrow representative at bedside. Mr. Wynne stated that he would "expedite" the process, but that "nothing would happen tonight". He would present the case to the [facility] and [facility] Board in AM, then would need concurring and Dr. Salazar to sign off. continue alb 2.5/3% Na q6H 10/31/18 1800 ABG 7.49/62/33/92% (2) Aspiration pneumonia Status: Acute Problem Text: 11/09 T max 100.9, WBC increased from 14.8 to 16.5, Zosyn D10, pt is likely recurrently aspirating, exam has revealed pool of oral secretions in post pharynx. [facility] has recinded their agreement for DNR, DNI stating pt doesn't meet criteria. Unfortunately the pt won't be able to live on IV antibiotics to treat his recurrent aspiration of oral secretions and this creates quite a challenging situation, will address further with attending. 11/08 - Zosyn D#9 - WBC trending down, but continues to spike temps - Tmax 101.6 last pm F/U CXR 11/07 - negative 11/07/18: Day #8 Zoysn. WBC 18.4. T-Max 100.4. CXR negative. BC negative 11/06 Zosyn D7. Tmax 100.7 cont to monitor. 11/05/ will check CXR in am to see if he has any clearing. D6 antibiotics. sufficiently stable to transfer to floor with cont. O2 monitoring D5 pip/lizeth remains NPO/asp precautions 11/02/18: WBC continues to improve along with clinical presentation. continue to wean off of oxygen needs. Continue CPT and suctioning. 11/01/18: WBC improved at 17,000. 10/29 CT chest: 1. Airspace consolidations in the bilateral dependent lower lobes significantly larger on the right. 2. Aspirated material in the bronchus intermedius and right lower lobe bronchus. (3) Oropharyngeal dysphagia Status: Chronic Problem Text: 11/09 NPO, receiving PPN until PEG can be placed, pt appears to be recurrently aspirating oral secretions, therefore PEG is not really going to change his aspiration risk will just assure a nutritional source. 11/08/18: Patient has failed swallow eval. He remains NPO. Currently receiving TPN, surgery consulted for PEG 11/05: gag is visualized today on exam but also has large retropharyngeal salivary pool indicating decreased clearing. 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 There is chronic microvascular disease. 2. No acute intracranial lesion or injury. 1. Probable small, less than 2 mm on the left and left and 1 mm on the right, bilateral posterior communicating artery infundibula. No definite aneurysm. 2. No intracranial stenosis or occlusion. 10/19/18 TTE: 1. Normal left ventricle internal dimensions and wall thickness. Normal regional LV wall motion and wall thickening. Normal LV systolic function. Grade 1 LV diastolic dysfunction. 2. Otherwise normal echocardiogram Doppler findings. (4) Hypernatremia Status: Acute Problem Text: 11/07/18: Remains WNL. We will continue to monitor 11/06 resolved, NA 141, cont to monitor. 11/05 sodium corrected overnight with D5W, will stop this supplemental fluid for now. 11/04: Still High, will d/c current IV fluid, change to D5W at 60, continue parenteral nutrition baseline NA low 140s c HILARY I 11/03 153 + PPN to IVF 10/31 153; therefore, increased to 120H-favor increased insensible loss c persi stent free H20 deficit 10/30 150 (150) favor 2 dehydration; therefore, / NS 80H (5) Developmental disability Status: Chronic Response to Treatment: Stable Problem Text: no HCP/legal guardian decisions [facility] as of now, FULL CODE status (6) CKD (chronic kidney disease), stage III Status: Chronic Problem Text: 11/01/18: Cr. stable at 1.2 Cr 1.6, baseline 1.0-1.2. IVF ordered for fluid [id number] NS at 100 cc per hour. (7) Schizophrenia Status: Chronic Problem Text: c ho severe agitation 10/30 given NPO status, DVP changed to IV. traz 50 QHS, ris 3 BID, quet 200 QHS on hold c tory 0.5 q6 IV prn and + halo 0.5 IV q6H (hold for sedation) (8) GERD (gastroesophageal reflux disease) Status: Chronic Problem Text: IV Protonix (9) IFG (impaired fasting glucose) Status: Chronic Problem Specific Plan: Monitor Clinically, Repeat Labs Problem Text: [email or web address] 6.0 09/2018 Plan/VTE VTE Prophylaxis Ordered?: Yes Plan Therapy: PT, OT VS, I&O, 24H, Fishbone Vital Signs/I&O Vital Signs Date Time Temp Pulse Resp B/P (MAP) Pulse Ox O2 Delivery O2 Flow Rate FiO2 11/09/18 06:17 99.8 94 16 141/74 (96) 91 11/08/18 20:01 Room Air 11/04/18 04:00 4.0 11/03/18 08:00 I&O- Last 24 Hours up to 6 AM 11/09/18 06:00 Intake Total 2172.5 ml Balance 2172.5 ml Laboratory Data 24H LABS Laboratory Tests 2 11/08/18 11:39: Bedside Glucose (Misc Panel) 109 11/08/18 17:13: Bedside Glucose (Misc Panel) 111 11/08/18 23:43: Bedside Glucose (Misc Panel) 111 11/09/18 05:29: Immature Granulocyte % (Auto) 2.9, White Blood Count 16.5H, Red Blood Count 3.15L, Hemoglobin 9.7L, Hematocrit 28.3L, Mean Corpuscular Volume 89.8, Mean Corpuscular Hemoglobin 30.8, Mean Corpuscular Hemoglobin Concent 34.3, Red Cell Distribution Width 14.7H, Platelet Count , Neutrophils (%) (Auto) 78.6H, Lymphocytes (%) (Auto) 5.0L, Monocytes (%) (Auto) 11.3H, Eosinophils (%) (Auto) 1.9, Basophils (%) (Auto) 0.3, Neutrophils # (Auto) 12.9H, Lymphocytes # (Auto) 0.8L, Monocytes # (Auto) 1.9H, Eosinophils # (Auto) 0.3, Basophils # (Auto) 0.1, Nucleated Red Blood Cells % (auto) 0.0, Anion Gap 9, Glomerular Filtration Rate > 60.0, Blood Urea Nitrogen 28H, Creatinine 0.99, Sodium Level 139, Potassium Level 4.0, Chloride Level 104, Carbon Dioxide Level 26, Calcium Level 7.1L, Aspartate Amino Transf (AST/SGOT) 40H, Alanine Aminotransferase (ALT/SGPT) 16, Alkaline Phosphatase 69, Total Bilirubin 0.5, Total Protein 4.9L, Albumin 1.0L, Albumin/Globulin Ratio 0.26L 11/09/18 06:15: Bedside Glucose (Misc Panel) 106 CBC/BMP Laboratory Tests 11/09/18 05:29 Red Blood Count 3.15 L, Mean Corpuscular Volume 89.8, Mean Corpuscular Hemoglobin 30.8, Mean Corpuscular Hemoglobin Concent 34.3, Red Cell Distribution Width 14.7 H, Neutrophils (%) (Auto) 78.6 H, Lymphocytes (%) (Auto) 5.0 L, Monocytes (%) (Auto) 11.3 H, Eosinophils (%) (Auto) 1.9, Basophils (%) (Auto) 0.3, Neutrophils # (Auto) 12.9 H, Lymphocytes # (Auto) 0.8 L, Monocytes # (Auto) 1.9 H, Eosinophils # (Auto) 0.3, Basophils # (Auto) 0.1, Calcium Level 7.1 L, Aspartate Amino Transf (AST/SGOT) 40 H, Alanine Aminotransferase (ALT/SGPT) 16, Alkaline Phosphatase 69, Total Bilirubin 0.5, Total Protein 4.9 L, Albumin 1.0 L ISIDRO EDEN PA-C Nov 09, 2018 09:02
[2018-11-09] MEDS: HEPARIN SOD (PORCINE) 5000 UNITS/ML VIAL SC SCH ×2 (09:47→21:55)
[2018-11-09] MEDS: VALPROATE SOD INJ 500 MG in D5W 50 ML IV SCH (09:47)
[2018-11-09 14:00] VITALS: BP 140/74
[2018-11-09] MEDS: FAT EMULSION IV 20% 500 ML IV SCH (19:38)
[2018-11-09 20:51] VITALS: BP 140/76
[2018-11-09] MEDS: VALPROATE SOD INJ 250 MG in D5W 50 ML IV SCH (21:54)
[2018-11-09] MEDS: PANTOPRAZOLE 40MG INJ (PROTONIX) (C9113) IV SCH (21:55)
[2018-11-10] MEDS: PIPERACILLIN/TAZOBACTAM SOD 3.375 GM in D5W MINI-BAG PLUS 50 ML IV SCH ×4 (01:28→18:17)
[2018-11-10] MEDS: SODIUM CHLORIDE HYPERTONIC 3% 15ML NEB SOL INH SCH ×4 (02:00→19:31)
[2018-11-10] MEDS: ALBUTEROL SULFATE 2.5 MG/0.5 ML INH NEB SOLN NEB SCH ×4 (02:00→19:31)
[2018-11-10] MEDS: SLF 3 ML SYR IV SCH ×3 (05:27→21:53)
[2018-11-10] MEDS: HALOPERIDOL 5 MG/ML VIAL (J1630) IV SCH ×3 (05:27→22:00)
[2018-11-10 06:00] VITALS: BP 138/76
[2018-11-10] MEDS: HumaLOG INSULIN (NovoLOG) PER UNIT SC SCH ×4 (06:00→18:00)
[2018-11-10 08:24] LABS: BASO % 0.3 % (0.0-1.0); EOS # 0.4 10^3/uL (0.0-0.5); EOS % 2.7 % (0.0-3.0); HEMATOCRIT 27.8 % (42.0-52.0); HEMOGLOBIN 9.2 g/dl (13.5-17.5); LYMPH # 0.9 10^3/uL (1.5-5.0); LYMPH % 6.2 % (24.0-44.0); MEAN CORPUSCULAR HEMOGLOBIN 30.1 pg (27.0-33.0); MEAN CORPUSCULAR HGB CONC 33.1 g/dl (32.0-36.5); MEAN CORPUSCULAR VOLUME 90.8 fl (80.0-96.0); MONO # 1.5 10^3/uL (0.0-0.8); MONO % 10.2 % (0.0-5.0); NEUTROPHILS # 11.2 10^3/uL (1.5-8.5); NEUTROPHILS % 77.4 % (36.0-66.0); PLATELET COUNT, AUTOMATED 315 10^3/uL (150-450); RED BLOOD COUNT 3.06 10^6/uL (4.30-6.10); WHITE BLOOD COUNT 14.5 10^3/uL (4.0-10.0)
[2018-11-10 08:44] LABS: ALBUMIN 0.9 GM/DL (3.2-5.2); ALT/SGPT 15 U/L (12-78); BILIRUBIN,TOTAL 0.5 MG/DL (0.2-1.0); BLOOD UREA NITROGEN 25 MG/DL (7-18); CALCIUM LEVEL 7.6 MG/DL (8.8-10.2); CARBON DIOXIDE LEVEL 27 MEQ/L (21-32); CHLORIDE LEVEL 102 MEQ/L (98-107); CREATININE FOR GFR 1.02 MG/DL (0.70-1.30); GLOMERULAR FILTRATION RATE > 60.0 (>49); GLUCOSE, FASTING 112 MG/DL (70-100); POTASSIUM SERUM 3.9 MEQ/L (3.5-5.1); SODIUM LEVEL 137 MEQ/L (136-145); TOTAL PROTEIN 5.5 GM/DL (6.4-8.2)
--- NOTE | 2018-11-10 08:59 | IPNPDOC ---
Subjective Date Seen The patient was seen on 11/10/18. Subjective Chief Complaint/HPI Pt with [facility] staff at bedside. No new concerns. Nursing also without new concerns. General: Reports: ROS Unobtainable Objective Physical Examination General Exam: Positive: Alert, Cooperative (non-verbal, reaches for my hands), No Acute Distress Eye Exam: Positive: Ptosis (right eyelid); Negative: Sclera icteric ENT Exam: Positive: Mucous membr. moist/pink Neck Exam: Positive: Supple; Negative: thyromegaly Chest Exam: Positive: Rhonchi, Other (referred upper airway sounds BL); Negative: Wheezing, Diminished Heart Exam: Positive: Rate Normal, Regular Rhythm, Normal S1, Normal S2; Negative: Murmurs, Rubs Telemetry: Positive: No significant arrhythmia Abdomen Exam: Positive: Normal bowel sounds, Soft; Negative: Tenderness, Hepatospenomegaly Extremity Exam: Positive: Edema (diffusely edematous with 1 mm pitting edema of BLE, BUE.), Swelling Skin Exam: Positive: Nl turgor and temperature Neuro Exam: Positive: Other (engages eye contact. no speech today.) Assessment /Plan Problems (1) Aspiration pneumonia Status: Acute Problem Text: 11/10 Tmax 100.1, WBC down slightly at 14. Zosyn D11. 11/09 T max 100.9, WBC increased from 14.8 to 16.5, Zosyn D10, pt is likely recurrently aspirating, exam has revealed pool of oral secretions in post pharyn x. [facility] has recinded their agreement for DNR, DNI stating pt doesn't meet criteria. Unfortunately the pt won't be able to live on IV antibiotics to treat his recurrent aspiration of oral secretions and this creates quite a challenging situation, will address further with attending. 11/08 - Zosyn D#9 - WBC trending down, but continues to spike temps - Tmax 101.6 last pm F/U CXR 11/07 - negative 11/07/18: Day #8 Zoysn. WBC 18.4. T-Max 100.4. CXR negative. BC negative 11/06 Zosyn D7. Tmax 100.7 cont to monitor. 11/05/ will check CXR in am to see if he has any clearing. D6 antibiotics. sufficiently stable to transfer to floor with cont. O2 monitoring D5 pip/lizeth remains NPO/asp precautions 11/02/18: WBC continues to improve along with clinical presentation. continue to wean off of oxygen needs. Continue CPT and suctioning. 11/01/18: WBC improved at 17,000. 10/29 CT chest: 1. Airspace consolidations in the bilateral dependent lower lobes significantly larger on the right. 2. Aspirated material in the bronchus intermedius and right lower lobe bronchus. (2) Acute respiratory failure with hypoxia Status: Acute Response to Treatment: Progressing Problem Text: 11/10 Resp status stable, 11/09 Await PEG placement, will cont with PPN until PEG placed. Resp status stable with room air O2. 11/08/18 - Add Scapolamine patch per ST. Plan PEG (Dr. Fletcher Consulted) 11/07/18: Repeat CXR:No acute disease. He does require suctioning. [facility] and [facility] do not support DNR/DNI as they feel patient does not meet criteria. They want to move forward with PEG tube placement. 11/06, Tmas 100.7 this morning, repeat CXR pending, pt cont to demonstrate difficulty managing secretions therefore aspiration risk remains high, this risk will cont and possibly increase with placement of J tube. Will cont to work with [facility] to obtain completed MOLST prior to tube placement. 11/04: need approved checklist to issue DNR order to proceed with feeding tube placement. 11/03 checklist signed by [facility] rep (Dr. Salazar), but [facility] did not like "wording"; therefore, attempting to determine what verbia needs to state 11/02 checklist requesting DNR/DNI completed for [facility] to approve, then for Dr. Salazar to sign. Apparently [facility] has approved PEG placement, but would favor DNR/DNI in place BEFOREHAND, given ho COMPLETE HEART BLOCK with previous colonoscopy. 10/31/18 increasing O2 requirement, now at HF 95% at 40L to maintain SaO2>94%; lane whaley [facility] Director that as patient's PCP for 15 years, would recommend DNR/DNI status-MOLST completed accordingly and gave to [facility] employee relations representative at bedside. Mr. Wynne stated that he would "expedite" the process, but that "nothing would happen tonight". He would present the case to the [facility] and [facility] Board in AM, then would need concurring and Dr. Salazar to sign off. continue alb 2.5/3% Na q6H 10/31/18 1800 ABG 7.49/62/33/92% (3) Oropharyngeal dysphagia Status: Chronic Problem Text: 11/09 NPO, receiving PPN until PEG can be placed, pt appears to be recurrently aspirating oral secretions, therefore PEG is not really going to change his aspiration risk will just assure a nutritional source. 11/08/18: Patient has failed swallow eval. He remains NPO. Currently receiving TPN, surgery consulted for PEG 11/05: gag is visualized today on exam but also has large retropharyngeal salivary pool indicating decreased clearing. 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 There is chronic microvascular disease. 2. No acute intracranial lesion or injury. 1. Probable small, less than 2 mm on the left and left and 1 mm on the right, bilateral posterior communicating artery infundibula. No definite aneurysm. 2. No intracranial stenosis or occlusion. 10/19/18 TTE: 1. Normal left ventricle internal dimensions and wall thickness. Normal regional LV wall motion and wall thickening. Normal LV systolic function. Grade 1 LV diastolic dysfunction. 2. Otherwise normal echocardiogram Doppler findings. (4) Hypernatremia Status: Resolved Problem Text: 11/07/18: Remains WNL. We will continue to monitor 11/06 resolved, NA 141, cont to monitor. 11/05 sodium corrected overnight with D5W, will stop this supplemental fluid for now. 11/04: Still High, will d/c current IV fluid, change to D5W at 60, continue parenteral nutrition baseline NA low 140s c HLIARY I 11/03 153 + PPN to IVF 10/31 153; therefore, increased to 120H-favor increased insensible loss c persistent free H20 deficit 10/30 150 (150) favor 2 dehydration; therefore, 1/2 NS 80H (5) Developmental disability Status: Chronic Response to Treatment: Stable Problem Text: no HCP/legal guardian decisions care per [facility] as of now, FULL CODE status (6) CKD (chronic kidney disease), stage III Status: Chronic Problem Text: 11/01/18: Cr. stable at 1.2 Cr 1.6, baseline 1.0-1.2. IVF ordered for fluid [id number] NS at 100 cc per hour. (7) Schizophrenia Status: Chronic Problem Text: c ho severe agitation 10/30 given NPO status, DVP changed to IV. traz 50 QHS, ris 3 BID, quet 200 QHS on hold c tory 0.5 q6 IV prn and + halo 0.5 IV q6H (hold for sedation) (8) GERD (gastroesophageal reflux disease) Status: Chronic Problem Text: IV Protonix (9) IFG (impaired fasting glucose) Status: Chronic Problem Specific Plan: Monitor Clinically, Repeat Labs Problem Text: [email or web address] 6.0 09/2018 Plan/VTE VTE Prophylaxis Ordered?: Yes Plan Therapy: PT, OT VS, I&O, 24H, Fishbone Vital Signs/I&O Vital Signs Date Time Temp Pulse Resp B/P (MAP) Pulse Ox O2 Delivery O2 Flow Rate FiO2 11/10/18 06:00 99.2 95 16 138/76 (96) 93 11/08/18 20:01 Room Air 11/04/18 04:00 4.0 I&O- Last 24 Hours up to 6 AM 11/10/18 06:00 Intake Total 0 ml Output Total 0 ml Balance 0 ml Laboratory Data 24H LABS Laboratory Tests 2 11/09/18 12:01: Bedside Glucose (Misc Panel) 93 11/09/18 17:49: Bedside Glucose (Misc Panel) 106 11/09/18 23:33: Bedside Glucose (Misc Panel) 106 11/10/18 05:57: Bedside Glucose (Misc Panel) 106 11/10/18 07:39: Anion Gap 8, Glomerular Filtration Rate > 60.0, Blood Urea Nitrogen 25H, Cr eatinine 1.02, Sodium Level 137, Potassium Level 3.9, Chloride Level 102, Carbon Dioxide Level 27, Calcium Level 7.6L, Aspartate Amino Transf (AST/SGOT) 36, Alanine Aminotransferase (ALT/SGPT) 15, Alkaline Phosphatase 69, Total Bilirubin 0.5, Total Protein 5.5L, Albumin 0.9L, Albumin/Globulin Ratio 0.20L 11/10/18 07:40: Immature Granulocyte % (Auto) 3.2H, White Blood Count 14.5H, Red Blood Count 3.06L, Hemoglobin 9.2L, Hematocrit 27.8L, Mean Corpuscular Volume 90.8, Mean Cor puscular Hemoglobin 30.1, Mean Corpuscular Hemoglobin Concent 33.1, Red Cell Distribution Width 14.6H, Platelet Count 315, Neutrophils (%) (Auto) 77.4H, Lymphocytes (%) (Auto) 6.2L, Monocytes (%) (Auto) 10.2H, Eosinophils (%) (Auto) 2.7, Basophils (%) (Auto) 0.3, Neutrophils # (Auto) 11.2H, Lymphocytes # (Auto) 0.9L, Monocytes # (Auto) 1.5H, Eosinophils # (Auto) 0.4, Basophils # (Auto) 0.0, Nucleated Red Blood Cells % (auto) 0.0 CBC/BMP Laboratory Tests 11/10/18 07:39 Calcium Level 7.6 L, Aspartate Amino Transf (AST/SGOT) 36, Alanine Aminotransferase (ALT/SGPT) 15, Alkaline Phosphatase 69, Total Bilirubin 0.5, Total Protein 5.5 L, Albumin 0.9 L 11/10/18 07:40 Red Blood Count 3.06 L, Mean Corpuscular Volume 90.8, Mean Corpuscular Hemoglobin 30.1, Mean Corpuscular Hemoglobin Concent 33.1, Red Cell Distribution Width 14.6 H, Neutrophils (%) (Auto) 77.4 H, Lymphocytes (%) (Auto) 6.2 L, Monocytes (%) (Auto) 10.2 H, Eosinophils (%) (Auto) 2.7, Basophils (%) (Auto) 0.3, Neutrophils # (Auto) 11.2 H, Lymphocytes # (Auto) 0.9 L, Monocytes # (Auto) 1.5 H, Eosinophils # (Auto) 0.4, Basophils # (Auto) 0.0 ISIDRO EDEN PA-C Nov 10, 2018 08:59
[2018-11-10] MEDS: HEPARIN SOD (PORCINE) 5000 UNITS/ML VIAL SC SCH ×2 (09:44→22:00)
[2018-11-10] MEDS: VALPROATE SOD INJ 500 MG in D5W 50 ML IV SCH (09:44)
[2018-11-10] MEDS: AMINO AC/ELECTROLYTE/DEX/CALC 1,000 ML IV SCH ×2 (12:08→20:05)
[2018-11-10 14:48] VITALS: BP 130/74
[2018-11-10] MEDS: FAT EMULSION IV 20% 500 ML IV SCH (20:05)
[2018-11-10 22:00] VITALS: BP 118/83
[2018-11-10] MEDS: VALPROATE SOD INJ 250 MG in D5W 50 ML IV SCH (22:00)
[2018-11-10] MEDS: PANTOPRAZOLE 40MG INJ (PROTONIX) (C9113) IV SCH (22:00)
[2018-11-11] MEDS: PIPERACILLIN/TAZOBACTAM SOD 3.375 GM in D5W MINI-BAG PLUS 50 ML IV SCH ×4 (00:02→18:05)
[2018-11-11] MEDS: HumaLOG INSULIN (NovoLOG) PER UNIT SC SCH ×3 (00:02→11:33)
[2018-11-11] MEDS: SODIUM CHLORIDE HYPERTONIC 3% 15ML NEB SOL INH SCH ×4 (01:20→19:55)
[2018-11-11] MEDS: ALBUTEROL SULFATE 2.5 MG/0.5 ML INH NEB SOLN NEB SCH ×4 (01:20→19:56)
[2018-11-11] MEDS: HALOPERIDOL 5 MG/ML VIAL (J1630) IV SCH ×4 (05:08→22:12)
[2018-11-11] MEDS: SLF 3 ML SYR IV SCH ×3 (05:09→22:12)
[2018-11-11 06:00] VITALS: BP 123/57
[2018-11-11 07:07] LABS: BASO % 0.3 % (0.0-1.0); EOS # 0.3 10^3/uL (0.0-0.5); EOS % 2.5 % (0.0-3.0); HEMATOCRIT 26.4 % (42.0-52.0); HEMOGLOBIN 8.6 g/dl (13.5-17.5); LYMPH # 0.8 10^3/uL (1.5-5.0); LYMPH % 6.4 % (24.0-44.0); MEAN CORPUSCULAR HEMOGLOBIN 29.7 pg (27.0-33.0); MEAN CORPUSCULAR HGB CONC 32.6 g/dl (32.0-36.5); MONO # 1.3 10^3/uL (0.0-0.8); MONO % 11.2 % (0.0-5.0); PLATELET COUNT, AUTOMATED 279 10^3/uL (150-450); WHITE BLOOD COUNT 11.9 10^3/uL (4.0-10.0)
[2018-11-11 07:30] LABS: ALBUMIN 0.9 GM/DL (3.2-5.2); ALT/SGPT 13 U/L (12-78); BILIRUBIN,TOTAL 0.6 MG/DL (0.2-1.0); BLOOD UREA NITROGEN 25 MG/DL (7-18); CALCIUM LEVEL 7.3 MG/DL (8.8-10.2); CARBON DIOXIDE LEVEL 26 MEQ/L (21-32); CHLORIDE LEVEL 100 MEQ/L (98-107); CREATININE FOR GFR 1.08 MG/DL (0.70-1.30); GLOMERULAR FILTRATION RATE > 60.0 (>49); GLUCOSE, FASTING 107 MG/DL (70-100); POTASSIUM SERUM 3.8 MEQ/L (3.5-5.1); SODIUM LEVEL 134 MEQ/L (136-145); TOTAL PROTEIN 5.3 GM/DL (6.4-8.2)
[2018-11-11] MEDS: SCOPOLAMINE 1MG TRANSDERMAL PATCH TOP SCH (09:31)
[2018-11-11] MEDS: VALPROATE SOD INJ 500 MG in D5W 50 ML IV SCH (09:31)
[2018-11-11] MEDS: HEPARIN SOD (PORCINE) 5000 UNITS/ML VIAL SC SCH ×2 (09:31→22:12)
--- NOTE | 2018-11-11 13:00 | IPN ---
DATE: 11/11/2018 Joel was seen on 5 Mo. He is more alert. His white count is coming down. He might be reaching the point where could be considering the percutaneous endoscopic gastrostomy (PEG) tube that [facility] ([facility]) is seeking. PHYSICAL EXAM: Afebrile. Maximum temperature (T max) 100.1. Genera Appearance: He is lying in bed, nonverbal. Upper airway mucousy secretions present. Lungs: Scattered rhonchi, mostly transmitted from above. Heart: Regular rhythm. Abdomen: Soft, nontender. No peripheral edema. LABORATORY: Electrolytes unremarkable. White count is down to 11.9. IMPRESSION: 1. Aspiration pneumonia. He is day #12 of Zosyn. White count is trending down. He has not been febrile in over 24 hours. Continue Zosyn. 2. Oropharyngeal dysphagia, apparently a PEG tube is being sought. In my professional opinion, this will provide nutrition but will do nothing to prevent aspiration, which his reason for repeated hospitalization. 3. Hypernatremia, resolved. He is now hyponatremic, and we need to keep an eye on this.
[2018-11-11 14:00] VITALS: BP 131/75
[2018-11-11] MEDS: FAT EMULSION IV 20% 500 ML IV SCH (18:05)
[2018-11-11] MEDS: AMINO AC/ELECTROLYTE/DEX/CALC 1,000 ML IV SCH (18:07)
[2018-11-11 20:00] VITALS: O2SAT 91
[2018-11-11 22:00] VITALS: BP 130/73
[2018-11-11] MEDS: PANTOPRAZOLE 40MG INJ (PROTONIX) (C9113) IV SCH (22:12)
[2018-11-11] MEDS: VALPROATE SOD INJ 250 MG in D5W 50 ML IV SCH (22:30)
[2018-11-11 23:59] VITALS: O2SAT 97
[2018-11-12] VITALS (7 sets, daily range): BP systolic 127–146; BP diastolic 68–84; O2SAT 97–98
[2018-11-12] MEDS: SODIUM CHLORIDE HYPERTONIC 3% 15ML NEB SOL INH SCH ×4 (01:16→19:39)
[2018-11-12] MEDS: ALBUTEROL SULFATE 2.5 MG/0.5 ML INH NEB SOLN NEB SCH ×4 (01:16→19:39)
[2018-11-12] MEDS: SLF 3 ML SYR IV SCH ×4 (05:27→22:14)
[2018-11-12] MEDS: PIPERACILLIN/TAZOBACTAM SOD 3.375 GM in D5W MINI-BAG PLUS 50 ML IV SCH ×5 (05:28→18:17)
[2018-11-12] MEDS: HALOPERIDOL 5 MG/ML VIAL (J1630) IV SCH ×3 (05:29→22:13)
[2018-11-12 06:53] LABS: BASO % 0.4 % (0.0-1.0); EOS # 0.3 10^3/uL (0.0-0.5); EOS % 3.2 % (0.0-3.0); HEMATOCRIT 25.9 % (42.0-52.0); HEMOGLOBIN 8.6 g/dl (13.5-17.5); LYMPH # 0.7 10^3/uL (1.5-5.0); MEAN CORPUSCULAR HEMOGLOBIN 30.3 pg (27.0-33.0); MEAN CORPUSCULAR HGB CONC 33.2 g/dl (32.0-36.5); MEAN CORPUSCULAR VOLUME 91.2 fl (80.0-96.0); MONO # 1.2 10^3/uL (0.0-0.8); MONO % 11.6 % (0.0-5.0); NEUTROPHILS # 7.7 10^3/uL (1.5-8.5); NEUTROPHILS % 72.8 % (36.0-66.0); PLATELET COUNT, AUTOMATED 272 10^3/uL (150-450); RED BLOOD COUNT 2.84 10^6/uL (4.30-6.10); WHITE BLOOD COUNT 10.6 10^3/uL (4.0-10.0)
[2018-11-12 07:13] LABS: ALBUMIN 0.8 GM/DL (3.2-5.2); ALT/SGPT 13 U/L (12-78); BILIRUBIN,TOTAL 0.5 MG/DL (0.2-1.0); BLOOD UREA NITROGEN 22 MG/DL (7-18); CALCIUM LEVEL 7.4 MG/DL (8.8-10.2); CARBON DIOXIDE LEVEL 26 MEQ/L (21-32); CHLORIDE LEVEL 103 MEQ/L (98-107); CREATININE FOR GFR 1.04 MG/DL (0.70-1.30); GLOMERULAR FILTRATION RATE > 60.0 (>49); GLUCOSE, FASTING 105 MG/DL (70-100); POTASSIUM SERUM 4.2 MEQ/L (3.5-5.1); SODIUM LEVEL 136 MEQ/L (136-145); TOTAL PROTEIN 5.2 GM/DL (6.4-8.2)
[2018-11-12] MEDS: HEPARIN SOD (PORCINE) 5000 UNITS/ML VIAL SC SCH ×2 (07:41→20:26)
[2018-11-12] MEDS: AMINO AC/ELECTROLYTE/DEX/CALC 1,000 ML IV SCH (07:41)
[2018-11-12] MEDS: VALPROATE SOD INJ 500 MG in D5W 50 ML IV SCH (07:41)
[2018-11-12] MEDS: FAT EMULSION IV 20% 500 ML IV SCH (18:16)
[2018-11-12] MEDS: VALPROATE SOD INJ 250 MG in D5W 50 ML IV SCH (20:26)
[2018-11-12] MEDS: PANTOPRAZOLE 40MG INJ (PROTONIX) (C9113) IV SCH (20:26)
--- NOTE | 2018-11-12 21:32 | IPN ---
DATE: 11/12/2018 Joel looks the best he has in several weeks. Respirations are easier and not as much secretion. He is communicating with the [facility] ([facility]) worker today. PHYSICAL EXAMINATION: Afebrile, vital signs stable. 98% oxygen saturation. Maximum temperature (T-max) 99.5. General appearance: Alert, interactive with [facility]. Lungs: Decreased rhonchi, still audible, and improved. Heart: Regular rate, rhythm. Abdomen: Soft, nontender. LABORATORY DATA: White count is down to 10.6, electrolytes unremarkable. PLAN: At this point, we probably could reach out to surgery to consider the percutaneous endoscopic gastrostomy (PEG) tube. They have been waiting for him to be afebrile and for white cell count to normalize and he has reached that point. Recommend rounding team re-consult Dr. Fletcher tomorrow.
[2018-11-13] MEDS: PIPERACILLIN/TAZOBACTAM SOD 3.375 GM in D5W MINI-BAG PLUS 50 ML IV SCH ×4 (00:47→18:49)
[2018-11-13] MEDS: SODIUM CHLORIDE HYPERTONIC 3% 15ML NEB SOL INH SCH ×4 (01:52→20:41)
[2018-11-13] MEDS: ALBUTEROL SULFATE 2.5 MG/0.5 ML INH NEB SOLN NEB SCH ×4 (01:52→20:41)
[2018-11-13] MEDS ORDERED: FUROSEMIDE 20 MG/2 ML VIAL (J1940) IV ONE (05:45)
[2018-11-13 06:00] VITALS: BP 134/70
[2018-11-13] MEDS: HALOPERIDOL 5 MG/ML VIAL (J1630) IV SCH ×3 (06:03→22:01)
[2018-11-13] MEDS: SLF 3 ML SYR IV SCH ×3 (06:03→22:03)
[2018-11-13 06:04] LABS: HEMATOCRIT 26.1 % (42.0-52.0); HEMOGLOBIN 8.8 g/dl (13.5-17.5); MEAN CORPUSCULAR HEMOGLOBIN 30.4 pg (27.0-33.0); MEAN CORPUSCULAR HGB CONC 33.7 g/dl (32.0-36.5); MEAN CORPUSCULAR VOLUME 90.3 fl (80.0-96.0); PLATELET COUNT, AUTOMATED 301 10^3/uL (150-450); RED BLOOD COUNT 2.89 10^6/uL (4.30-6.10); WHITE BLOOD COUNT 11.7 10^3/uL (4.0-10.0)
[2018-11-13] MEDS: ACETAMINOPHEN 650 MG SUPP PR PRN (06:04)
[2018-11-13 06:11] LABS: BASOPHILS 1 % (0-1); EOSINOPHILS 3 % (0-3); LYMPHOCYTES 8 % (16-44); METAMYELOCYTES 3 % (0-0); MONOCYTES 5 % (0-5); MYELOCYTES 1 % (0-0); NEUTROPHILS 76 % (28-66)
[2018-11-13 06:12] LABS: ANISOCYTOSIS 1+; PLATELET ESTIMATE NORMAL (NORMAL); POLYCHROMASIA 1+
[2018-11-13 06:20] LABS: BLOOD UREA NITROGEN 21 MG/DL (7-18); CALCIUM LEVEL 7.5 MG/DL (8.8-10.2); CARBON DIOXIDE LEVEL 27 MEQ/L (21-32); CHLORIDE LEVEL 102 MEQ/L (98-107); GLOMERULAR FILTRATION RATE > 60.0 (>49); GLUCOSE, FASTING 107 MG/DL (70-100); POTASSIUM SERUM 4.6 MEQ/L (3.5-5.1); SODIUM LEVEL 136 MEQ/L (136-145)
[2018-11-13] MEDS: AMINO AC/ELECTROLYTE/DEX/CALC 1,000 ML IV SCH ×2 (06:38→18:45)
--- NOTE | 2018-11-13 09:33 | IPNPDOC ---
Subjective Date Seen The patient was seen on 11/13/18. Subjective Chief Complaint/HPI resting quietly, respirations easy and unlabored. no verbalization. General: Reports: ROS Unobtainable Objective Physical Examination General Exam: Positive: Alert, Cooperative (non-verbal, reaches for my hands), No Acute Distress Eye Exam: Positive: Ptosis (right eyelid); Negative: Sclera icteric ENT Exam: Positive: Mucous membr. moist/pink Neck Exam: Positive: Supple; Negative: thyromegaly Chest Exam: Positive: Rhonchi (minimal transmitted respiratory sounds from hypopharynx. no strodor.), Other (referred upper airway sounds BL); Negative: Wheezing, Diminished Heart Exam: Positive: Rate Normal, Regular Rhythm, Normal S1, Normal S2; Negative: Murmurs, Rubs Telemetry: Positive: No significant arrhythmia Abdomen Exam: Positive: Normal bowel sounds, Soft; Negative: Tenderness, Hepatospenomegaly Extremity Exam: Positive: Edema (diffusely edematous with 1 mm pitting edema of BLE, BUE.), Swelling Skin Exam: Positive: Nl turgor and temperature Neuro Exam: Positive: Other (engages eye contact. no speech today.) Assessment /Plan Problems (1) Aspiration pneumonia Status: Acute Problem Text: 11/13: WBC and temp bounced up again overnight. Zosyn continues. Will repeat CXR. 11/10 Tmax 100.1, WBC down slightly at 14. Zosyn D11. 11/09 T max 100.9, WBC increased from 14.8 to 16.5, Zosyn D10, pt is likely recurrently aspirating, exam has revealed pool of oral secretions in post pharynx. [facility] has recinded their agreement for DNR, DNI stating pt doesn't meet criteria. Unfortunately the pt won't be able to live on IV antibiotics to treat his recurrent aspiration of oral secretions and this creates quite a challenging situation, will address further with attending. 11/08 - Zosyn D#9 - WBC trending down, but continues to spike temps - Tmax 101.6 last pm F/U CXR 11/07 - negative 11/07/18: Day #8 Zoysn. WBC 18.4. T-Max 100.4. CXR negative. BC negative 11/06 Zosyn D7. Tmax 100.7 cont to monitor. 11/05/ will check CXR in am to see if he has any clearing. D6 antibiotics. sufficiently stable to transfer to floor with cont. O2 monitoring D5 pip/lizeth remains NPO/asp precautions 11/02/18: WBC continues to improve along with clinical presentation. continue to wean off of oxygen needs. Continue CPT and suctioning. 11/01/18: WBC improved at 17,000. 10/29 CT chest: 1. Airspace consolidations in the bilateral dependent lower lobes significantly larger on the right. 2. Aspirated material in the bronchus intermedius and right lower lobe bronchus. (2) Acute respiratory failure with hypoxia Status: Acute Response to Treatment: Progressing Problem Text: 11/13: respiratory status stable. he has secretions that pool in hypopharynx posing ongoing aspiration risk and trigger temp increases likely related to microaspiration. 11/10 Resp status stable, 11/09 Await PEG placement, will cont with PPN until PEG placed. Resp status stable with room air O2. 11/08/18 - Add Scapolamine patch per ST. Plan PEG (Dr. Fletcher Consulted) 11/07/18: Repeat CXR:No acute disease. He does require suctioning. [facility] and [facility] do not support DNR/DNI as they feel patient does not meet criteria. They want to move forward with PEG tube placement. 11/06, Tmas 100.7 this morning, repeat CXR pending, pt cont to demonstrate difficulty managing secretions therefore aspiration risk remains high, this risk will cont and possibly increase with placement of J tube. Will cont to work with [facility] to obtain completed MOLST prior to tube placement. 11/04: need approved checklist to issue DNR order to proceed with feeding tube placement. 11/03 checklist signed by [facility] rep (Dr. Salazar), but [facility] did not like "wording"; therefore, attempting to determine what verbiage needs to state 11/02 checklist requesting DNR/DNI completed for [facility] to approve, then for Dr. Salazar to sign. Apparently [facility] has approved PEG placement, but would favor DNR/DNI in place BEFOREHAND, given ho COMPLETE HEART BLOCK with previous colonoscopy. 10/31/18 increasing O2 requirement, now at HF 95% at 40L to maintain SaO2>94%; lane whlaey [facility] Director that as patient's PCP for 15 years, would recommend DNR/DNI status-MOLST completed accordingly and gave to [facility] cordage sales representative at bedside. Mr. Wynne stated that he would "expedite" the process, but that "nothing would happen tonight". He would present the case to the [facility] and [facility] Board in AM, then would need concurring and Dr. Salazar to sign off. continue alb 2.5/3% Na q6H 10/31/18 1800 ABG 7.49/62/33/92% (3) Oropharyngeal dysphagia Status: Chronic Problem Text: 11/13: although gag was demonstrated to be present on 11/05, he has pooling and not able to actively swallow. Dr. Fletcher contacted again about feeding tube since his pulmonary function seems stable. 11/09 NPO, receiving PPN until PEG can be placed, pt appears to be recurrently aspirating oral secretions, therefore PEG is not really going to change his aspiration risk will just assure a nutritional source. 11/08/18: Patient has failed swallow eval. He remains NPO. Currently receiving TPN, surgery consulted for PEG 11/05: gag is visualized today on exam but also has large retropharyngeal salivary pool indicating decreased clearing. 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 There is chronic microvascular disease. 2. No acute intracranial lesion or injury. 1. Probable small, less than 2 mm on the left and left and 1 mm on the right, bilateral posterior communicating artery infundibula. No definite aneurysm. 2. No intracranial stenosis or occlusion. 10/19/18 TTE: 1. Normal left ventricle internal dimensions and wall thickness. Normal regional LV wall motion and wall thickening. Normal LV systolic function. Grade 1 LV diastolic dysfunction. 2. Otherwise normal echocardiogram Doppler findings. (4) Hypernatremia Status: Resolved Problem Text: 11/07/18: Remains WNL. We will continue to monitor 11/06 resolved, NA 141, cont to monitor. 11/05 sodium corrected overnight with D5W, will stop this supplemental fluid for now. 11/04: Still High, will d/c current IV fluid, change to D5W at 60, continue parenteral nutrition baseline NA low 140s c HILARY I 11/03 153 + PPN to IVF 10/31 153; therefore, increased to 120H-favor increased insensible loss c persistent free H20 deficit 10/30 150 (150) favor 2 dehydration; therefore, 1/2 NS 80H (5) Developmental disability Status: Chronic Response to Treatment: Stable Problem Text: no HCP/legal guardian decisions care per [facility] as of now, FULL CODE status (6) CKD (chronic kidney disease), stage III Status: Chronic Problem Text: 11/01/18: Cr. stable at 1.2 Cr 1.6, baseline 1.0-1.2. IVF ordered for fluid [id number] NS at 100 cc per hour. (7) Schizophrenia Status: Chronic Problem Text: c ho severe agitation 10/30 given NPO status, DVP changed to IV. traz 50 QHS, ris 3 BID, quet 200 QHS on hold c tory 0.5 q6 IV prn and + halo 0.5 IV q6H (hold for sedation) (8) GERD (gastroesophageal reflux disease) Status: Chronic Problem Text: IV Protonix (9) IFG (impaired fasting glucose) Status: Chronic Problem Specific Plan: Monitor Clinically, Repeat Labs Problem Text: [email or web address] 6.0 09/2018 Plan/VTE VTE Prophylaxis Ordered?: Yes Plan Therapy: PT, OT VS, I&O, 24H, Fishbone Vital Signs/I&O Vital Signs Date Time Temp Pulse Resp B/P (MAP) Pulse Ox O2 Delivery O2 Flow Rate FiO2 11/13/18 06:00 100.2 92 20 134/70 (91) 94 11/12/18 23:09 Room Air I&O- Last 24 Hours up to 6 AM 11/13/18 06:00 Intake Total 60 ml Balance 60 ml Laboratory Data 24H LABS Laboratory Tests 2 11/12/18 11:26: Bedside Glucose (Misc Panel) 102 11/12/18 17:23: Bedside Glucose (Misc Panel) 98 11/13/18 00:30: Bedside Glucose (Misc Panel) 101 11/13/18 05:51: Immature Granulocyte % (Auto) , Nucleated Red Blood Cells % (auto) 0.0, Neutroph ils 76H, Band Neutrophils 3, Lymphocytes (Manual) 8L, Monocytes (Manual) 5, Eosinophils (Manual) 3, Basophils (Manual) 1, Metamyelocytes 3H, Myelocytes 1H, Platelet Estimate NORMAL, Polychromasia 1+, Anisocytosis 1+, Anion Gap 7L, Glomerular Filtration Rate > 60.0, Blood Urea Nitrogen 21H, Creatinine 1.00, Sodium Level 136, Potassium Level 4.6, Chloride Level 102, Carbon Dioxide Level 27, Calcium Level 7.5L CBC/BMP Laboratory Tests 11/13/18 05:51 Red Blood Count 2.89 L, Mean Corpuscular Volume 90.3, Mean Corpuscular Hemoglobin 30.4, Mean Corpuscular Hemoglobin Concent 33.7, Red Cell Distribution Width 14.6 H, Calcium Level 7.5 L Saqib Haynes MD Nov 13, 2018 09:33
[2018-11-13] MEDS: HEPARIN SOD (PORCINE) 5000 UNITS/ML VIAL SC SCH ×2 (10:00→22:02)
[2018-11-13] MEDS: VALPROATE SOD INJ 500 MG in D5W 50 ML IV SCH (10:00)
--- NOTE | 2018-11-13 11:33 | REP ---
CHEST, AP AND LATERAL: AP and lateral views of the chest are performed and then compared to prior study of 11/16/2018. There is mild elevation of the right hemidiaphragm again seen. There is mild linear atelectatic change along the right heart border. No acute infiltrate is seen. Heart is normal in size. Mediastinal silhouette is unremarkable and unchanged. There are degenerative changes of the spine. IMPRESSION: No acute infiltrate. Electronically Signed by Anjel Damico MD 11/13/2018 04:11 P
[2018-11-13 14:00] VITALS: BP 132/70
[2018-11-13] MEDS: HumaLOG INSULIN (NovoLOG) PER UNIT SC SCH (18:00)
[2018-11-13] MEDS: FAT EMULSION IV 20% 500 ML IV SCH (18:45)
[2018-11-13 22:00] VITALS: BP 135/71
[2018-11-13] MEDS: PANTOPRAZOLE 40MG INJ (PROTONIX) (C9113) IV SCH (22:01)
[2018-11-13] MEDS: VALPROATE SOD INJ 250 MG in D5W 50 ML IV SCH (22:02)
[2018-11-14] MEDS: PIPERACILLIN/TAZOBACTAM SOD 3.375 GM in D5W MINI-BAG PLUS 50 ML IV SCH ×2 (01:15→05:45)
[2018-11-14] MEDS: SODIUM CHLORIDE HYPERTONIC 3% 15ML NEB SOL INH SCH ×4 (01:54→20:43)
[2018-11-14] MEDS: ALBUTEROL SULFATE 2.5 MG/0.5 ML INH NEB SOLN NEB SCH ×4 (01:54→20:43)
[2018-11-14] MEDS: HALOPERIDOL 5 MG/ML VIAL (J1630) IV SCH ×3 (05:45→21:29)
[2018-11-14] MEDS: SLF 3 ML SYR IV SCH ×3 (05:45→21:30)
[2018-11-14 06:00] VITALS: BP 138/71
[2018-11-14] MEDS: HumaLOG INSULIN (NovoLOG) PER UNIT SC SCH ×4 (06:29→18:00)
[2018-11-14 06:36] LABS: HEMATOCRIT 25.4 % (42.0-52.0); HEMOGLOBIN 8.4 g/dl (13.5-17.5); MEAN CORPUSCULAR HGB CONC 33.1 g/dl (32.0-36.5); MEAN CORPUSCULAR VOLUME 90.7 fl (80.0-96.0); PLATELET COUNT, AUTOMATED 268 10^3/uL (150-450); WHITE BLOOD COUNT 10.3 10^3/uL (4.0-10.0)
[2018-11-14 06:53] LABS: BLOOD UREA NITROGEN 21 MG/DL (7-18); CALCIUM LEVEL 7.6 MG/DL (8.8-10.2); CARBON DIOXIDE LEVEL 27 MEQ/L (21-32); CHLORIDE LEVEL 102 MEQ/L (98-107); CREATININE FOR GFR 0.99 MG/DL (0.70-1.30); GLOMERULAR FILTRATION RATE > 60.0 (>49); GLUCOSE, FASTING 111 MG/DL (70-100); POTASSIUM SERUM 4.4 MEQ/L (3.5-5.1); SODIUM LEVEL 136 MEQ/L (136-145)
[2018-11-14 07:00] LABS: ANISOCYTOSIS 2+; EOSINOPHILS 7 % (0-3); LYMPHOCYTES 11 % (16-44); MONOCYTES 1 % (0-5); NEUTROPHILS 81 % (28-66); PLATELET ESTIMATE NORMAL (NORMAL)
[2018-11-14] MEDS: SCOPOLAMINE 1MG TRANSDERMAL PATCH TOP SCH (10:04)
[2018-11-14] MEDS: HEPARIN SOD (PORCINE) 5000 UNITS/ML VIAL SC SCH ×2 (10:04→21:29)
[2018-11-14] MEDS: VALPROATE SOD INJ 500 MG in D5W 50 ML IV SCH (10:05)
--- NOTE | 2018-11-14 10:58 | IPNPDOC ---
Subjective Date Seen The patient was seen on 11/14/18. Subjective Chief Complaint/HPI [facility] staff at bedside General: Reports: ROS Unobtainable Objective Physical Examination General Exam: Positive: Alert, Cooperative (non-verbal, reaches for my hands), No Acute Distress Eye Exam: Positive: Ptosis (right eyelid); Negative: Sclera icteric ENT Exam: Positive: Mucous membr. moist/pink Neck Exam: Positive: Supple; Negative: thyromegaly Chest Exam: Positive: Rhonchi (minimal transmitted respiratory sounds from hypopharynx. no strodor.), Other (referred upper airway sounds BL); Negative: Wheezing, Diminished Heart Exam: Positive: Rate Normal, Regular Rhythm, Normal S1, Normal S2; Negative: Murmurs, Rubs Telemetry: Positive: No significant arrhythmia Abdomen Exam: Positive: Normal bowel sounds, Soft; Negative: Tenderness, Hepatospenomegaly Extremity Exam: Positive: Edema (diffusely edematous with 1 mm pitting edema of BLE, BUE.) Skin Exam: Positive: Nl turgor and temperature Neuro Exam: Positive: Other (engages eye contact. no speech today.) Assessment /Plan Problems (1) Aspiration pneumonia Status: Acute Problem Text: 11/14/18: WBC down to 10.3. Tmax 100.1. Repeat chest x-ray negative for infiltrates. Continue with Zoysn Day #16 11/13: WBC and temp bounced up again overnight. Zosyn continues. Will repeat CXR. 11/10 Tmax 100.1, WBC down slightly at 14. Zosyn D11. /12 T max 100.9, WBC increased from 14.8 to 16.5, Zosyn D10, pt is likely recurrently aspirating, exam has revealed pool of oral secretions in post pharynx. [facility] has recinded their agreement for DNR, DNI stating pt doesn't meet criteria. Unfortunately the pt won't be able to live on IV antibiotics to treat his recurrent aspiration of oral secretions and this creates quite a challenging situation, will address further with attending. 11/08 - Zosyn D#9 - WBC trending down, but continues to spike temps - Tmax 101.6 last pm F/U CXR 11/07 - negative 11/07/18: Day #8 Zoysn. WBC 18.4. T-Max 100.4. CXR negative. BC negative 11/06 Zosyn D7. Tmax 100.7 cont to monitor. 11/05/ will check CXR in am to see if he has any clearing. D6 antibiotics. sufficiently stable to transfer to floor with cont. O2 monitoring D5 pip/lizeth remains NPO/asp precautions 11/02/18: WBC continues to improve along with clinical presentation. continue to wean off of oxygen needs. Continue CPT and suctioning. 11/01/18: WBC improved at 17,000. 10/29 CT chest: 1. Airspace consolidations in the bilateral dependent lower lobes significantly larger on the right. 2. Aspirated material in the bronchus intermedius and right lower lobe bronchus. (2) Acute respiratory failure with hypoxia Status: Acute Response to Treatment: Progressing Problem Text: 11/14/18: Stable. He continues to have pooled secretions 11/13: respiratory status stable. he has secretions that pool in hypopharynx posing ongoing aspiration risk and trigger temp increases likely related to microaspiration. 11/10 Resp status stable, 11/09 Await PEG placement, will cont with PPN until PEG placed. Resp status st able with room air O2. 11/08/18 - Add Scapolamine patch per ST. Plan PEG (Dr. Fletcher Consulted) 11/07/18: Repeat CXR:No acute disease. He does require suctioning. C and [facility] do not support DNR/DNI as they feel patient does not meet criteria. They want to move forward with PEG tube placement. 11/06, Tmas 100.7 this morning, repeat CXR pending, pt cont to demonstrate difficulty managing secretions therefore aspiration risk remains high, this risk will cont and possibly increase with placement of J tube. Will cont to work with [facility] to obtain completed MOLST prior to tube placement. 11/04: need approved checklist to issue DNR order to proceed with feeding tube placement. 11/03 checklist signed by [facility] rep (Dr. Salazar), but [facility] did not like "wording"; therefore, attempting to determine what verbiage needs to state 11/02 checklist requesting DNR/DNI completed for [facility] to approve, then for Dr. Salazar to sign. Apparently [facility] has approved PEG placement, but would favor DNR/DNI in place BEFOREHAND, given ho COMPLETE HEART BLOCK with previous colonoscopy. 10/31/18 increasing O2 requirement, now at HF 95% at 40L to maintain SaO2>94%; lane whaley [facility] Director that as patient's PCP for 15 years, would recommend DNR/DNI status-MOLST completed accordingly and gave to [facility] roofing sales representative at bedside. Mr. Wynne stated that he would "expedite" the process, but that "nothing would happen tonight". He would present the case to the [facility] and [facility] Board in AM, then would need concurring and Dr. Salazar to sign off. continue alb 2.5/3% Na q6H 10/31/18 1800 ABG 7.49/62/33/92% (3) Oropharyngeal dysphagia Status: Chronic Problem Text: 11/14/18: We await discussions with [facility] and surgeon input regarding tube placement 11/13: although gag was demonstrated to be present on 11/05, he has pooling and not able to actively swallow. Dr. Fletcher contacted again about feeding tube since his pulmonary function seems stable. 11/09 NPO, receiving PPN until PEG can be placed, pt appears to be recurrently aspirating oral secretions, therefore PEG is not really going to change his aspiration risk will just assure a nutritional source. 11/08/18: Patient has failed swallow eval. He remains NPO. Currently receiving TPN, surgery consulted for PEG 11/05: gag is visualized today on exam but also has large retropharyngeal salivary pool indicating decreased clearing. 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 There is chronic microvascular disease. 2. No acute intracranial lesion or injury. 1. Probable small, less than 2 mm on the left and left and 1 mm on the right, bilateral posterior communicating artery infundibula. No definite aneurysm. 2. No intracranial stenosis or occlusion. 10/19/18 TTE: 1. Normal left ventricle internal dimensions and wall thickness. Normal regional LV wall motion and wall thickening. Normal LV systolic function. Grade 1 LV diastolic dysfunction. 2. Otherwise normal echocardiogram Doppler findings. (4) Hypernatremia Status: Resolved Problem Text: 11/07/18: Remains WNL. We will continue to monitor 11/06 resolved, NA 141, cont to monitor. 11/05 sodium corrected overnight with D5W, will stop this supplemental fluid for now. 11/04: Still High, will d/c current IV fluid, change to D5W at 60, continue parenteral nutrition baseline NA low 140s c HILARY I 11/03 153 + PPN to IVF 10/31 153; therefore, increased to 120H-favor increased insensible loss c persistent free H20 deficit 10/30 150 (150) favor 2 dehydration; therefore, 03/01 NS 80H (5) Developmental disability Status: Chronic Response to Treatment: Stable Problem Text: no HCP/legal guardian decisions [facility] as of now, FULL CODE status (6) CKD (chronic kidney disease), stage III Status: Chronic Problem Text: 11/01/18: Cr. stable at 1.2 Cr 1.6, baseline 1.0-1.2. IVF ordered for fluid [id number] NS at 100 cc per hour. (7) Schizophrenia Status: Chronic Problem Text: c ho severe agitation 10/30 given NPO status, DVP changed to IV. traz 50 QHS, ris 3 BID, quet 200 QHS on hold c tory 0.5 q6 IV prn and + halo 0.5 IV q6H (hold for sedation) (8) GERD (gastroesophageal reflux disease) Status: Chronic Problem Text: IV Protonix (9) IFG (impaired fasting glucose) Status: Chronic Problem Specific Plan: Monitor Clinically, Repeat Labs Problem Text: [email or web address] 6.0 09/2018 Plan/VTE VTE Prophylaxis Ordered?: Yes Plan Therapy: PT, OT VS, I&O, 24H, Fishbone Vital Signs/I&O Vital Signs Date Time Temp Pulse Resp B/P (MAP) Pulse Ox O2 Delivery O2 Flow Rate FiO2 11/14/18 06:00 100.1 83 15 138/71 (93) 95 11/12/18 23:09 Room Air I&O- Last 24 Hours up to 6 AM 11/14/18 06:00 Intake Total 2090 ml Balance 2090 ml Laboratory Data 24H LABS Laboratory Tests 2 11/13/18 11:34: Bedside Glucose (Misc Panel) 102 11/13/18 17:28: Bedside Glucose (Misc Panel) 94 11/14/18 00:20: Bedside Glucose (Misc Panel) 99 11/14/18 06:04: Immature Granulocyte % (Auto) , Nucleated Red Blood Cells % (auto) 0.0, Neutro phils 81H, Lymphocytes (Manual) 11L, Monocytes (Manual) 1, Eosinophils (Manual) 7H, Platelet Estimate NORMAL, Anisocytosis 2+, Macrocytosis 2+, Anion Gap 7L, Glomerular Filtration Rate > 60.0, Blood Urea Nitrogen 21H, Creatinine 0.99, Sodium Level 136, Potassium Level 4.4, Chloride Level 102, Carbon Dioxide Level 27, Calcium Level 7.6L 11/14/18 06:13: Bedside Glucose (Misc Panel) 111 CBC/BMP Laboratory Tests 11/14/18 06:04 Red Blood Count 2.80 L, Mean Corpuscular Volume 90.7, Mean Corpuscular Hemoglobin 30.0, Mean Corpuscular Hemoglobin Concent 33.1, Red Cell Distribution Width 14.5, Calcium Level 7.6 L CHICO ROBERSON [employer] Nov 14, 2018 10:58
[2018-11-14 14:00] VITALS: BP 134/76
[2018-11-14] MEDS: AMINO AC/ELECTROLYTE/DEX/CALC 1,000 ML IV SCH (15:42)
[2018-11-14] MEDS: FAT EMULSION IV 20% 500 ML IV SCH (18:53)
[2018-11-14] MEDS: VALPROATE SOD INJ 250 MG in D5W 50 ML IV SCH (21:29)
[2018-11-14] MEDS: PANTOPRAZOLE 40MG INJ (PROTONIX) (C9113) IV SCH (21:29)
[2018-11-14 22:00] VITALS: BP 130/74
[2018-11-15] MEDS: ALBUTEROL SULFATE 2.5 MG/0.5 ML INH NEB SOLN NEB SCH ×4 (02:00→20:46)
[2018-11-15] MEDS: SODIUM CHLORIDE HYPERTONIC 3% 15ML NEB SOL INH SCH ×3 (02:00→20:46)
[2018-11-15 06:00] VITALS: BP 136/74
[2018-11-15] MEDS: HumaLOG INSULIN (NovoLOG) PER UNIT SC SCH ×4 (06:00→18:00)
[2018-11-15] MEDS: SLF 3 ML SYR IV SCH ×3 (06:07→21:31)
[2018-11-15] MEDS: HALOPERIDOL 5 MG/ML VIAL (J1630) IV SCH ×3 (06:07→21:30)
[2018-11-15 06:46] LABS: BASO % 0.3 % (0.0-1.0); EOS # 0.4 10^3/uL (0.0-0.5); EOS % 3.8 % (0.0-3.0); HEMATOCRIT 26.7 % (42.0-52.0); HEMOGLOBIN 8.9 g/dl (13.5-17.5); LYMPH # 0.8 10^3/uL (1.5-5.0); MEAN CORPUSCULAR HEMOGLOBIN 30.2 pg (27.0-33.0); MEAN CORPUSCULAR HGB CONC 33.3 g/dl (32.0-36.5); MEAN CORPUSCULAR VOLUME 90.5 fl (80.0-96.0); MONO # 1.2 10^3/uL (0.0-0.8); MONO % 10.1 % (0.0-5.0); NEUTROPHILS # 8.8 10^3/uL (1.5-8.5); NEUTROPHILS % 76.1 % (36.0-66.0); PLATELET COUNT, AUTOMATED 272 10^3/uL (150-450); RED BLOOD COUNT 2.95 10^6/uL (4.30-6.10); WHITE BLOOD COUNT 11.6 10^3/uL (4.0-10.0)
[2018-11-15 07:14] LABS: BLOOD UREA NITROGEN 19 MG/DL (7-18); CALCIUM LEVEL 7.5 MG/DL (8.8-10.2); CARBON DIOXIDE LEVEL 26 MEQ/L (21-32); CHLORIDE LEVEL 102 MEQ/L (98-107); CREATININE FOR GFR 0.81 MG/DL (0.70-1.30); GLOMERULAR FILTRATION RATE > 60.0 (>49); GLUCOSE, FASTING 100 MG/DL (70-100); POTASSIUM SERUM 5.6 MEQ/L (3.5-5.1); SODIUM LEVEL 135 MEQ/L (136-145)
--- NOTE | 2018-11-15 07:36 | IPNPDOC ---
Subjective Date Seen The patient was seen on 11/15/18. Subjective Chief Complaint/HPI Patient lying in bed as I entered the room. Eyes open, non-communicative General: Reports: ROS Unobtainable Objective Physical Examination General Exam: Positive: Alert, Cooperative (non-verbal, reaches for my hands), No Acute Distress Eye Exam: Positive: Ptosis (right eyelid); Negative: Sclera icteric ENT Exam: Positive: Mucous membr. moist/pink Neck Exam: Positive: Supple; Negative: thyromegaly Chest Exam: Positive: Rhonchi (minimal transmitted respiratory sounds from hypopharynx. no strodor.), Other (referred upper airway sounds BL); Negative: Wheezing, Diminished Heart Exam: Positive: Rate Normal, Regular Rhythm, Normal S1, Normal S2; Negative: Murmurs, Rubs Telemetry: Positive: No significant arrhythmia Abdomen Exam: Positive: Normal bowel sounds, Soft; Negative: Tenderness, Hepatospenomegaly Extremity Exam: Positive: Edema (diffusely edematous with 1 mm pitting edema of BLE, BUE.) Skin Exam: Positive: Nl turgor and temperature Neuro Exam: Positive: Other (engages eye contact. no speech today.) Assessment /Plan Problems (1) Aspiration pneumonia Status: Acute Problem Text: 11/15/18: Abx stopped yesterday. WBC 11.6 today. Patient remains an aspiration risk. Currently NPO with TPN 11/14/18: WBC down to 10.3. Tmax 100.1. Repeat chest x-ray negative for infiltrates. Continue with Zoysn Day #16 11/13: WBC and temp bounced up again overnight. Zosyn continues. Will repeat CXR. 11/10 Tmax 100.1, WBC down slightly at 14. Zosyn D11. 11/09 T max 100.9, WBC increased from 14.8 to 16.5, Zosyn D10, pt is likely recurrently aspirating, exam has revealed pool of oral secretions in post pharynx. [facility] has recinded their agreement for DNR, DNI stating pt doesn't meet criteria. Unfortunately the pt won't be able to live on IV antibiotics to treat his recurrent aspiration of oral secretions and this creates quite a challenging situation, will address further with attending. 11/08 - Zosyn D#9 - WBC trending down, but continues to spike temps - Tmax 101.6 last pm F/U CXR 11/07 - negative 11/07/18: Day #8 Zoysn. WBC 18.4. T-Max 100.4. CXR negative. BC negative 11/06 Zosyn D7. Tmax 100.7 cont to monitor. 11/05/ check CXR in am to see if he has any clearing. D6 antibiotics. sufficiently stable to transfer to floor with cont. O2 monitoring D5 pip/lizeth remains NPO/asp precautions 11/02/18: WBC continues to improve along with clinical presentation. continue to wean off of oxygen needs. Continue CPT and suctioning. 11/01/18: WBC improved at 17,000. 10/29 CT chest: 1. Airspace consolidations in the bilateral dependent lower lobes significantly larger on the right. 2. Aspirated material in the bronchus intermedius and right lower lobe bronchus. (2) Acute respiratory failure with hypoxia Status: Acute Response to Treatment: Progressing Problem Text: 11/15/18: He continues to pool secretions. Meeting today to discuss long plan of care with feeding tube 11/14/18: Stable. He continues to have pooled secretions 11/13: respiratory status stable. he has secretions that pool in hypopharynx posing ongoing aspiration risk and trigger temp increases likely related to microaspiration. 11/10 Resp status stable, 11/09 Await PEG placement, will cont with PPN until PEG placed. Resp status stable with room air O2. 11/08/18 - Add Scapolamine patch per ST. Plan PEG (Dr. Fletcher Consulted) 11/07/18: Repeat CXR:No acute disease. He does require suctioning. [facility] and [facility] do not support DNR/DNI as they feel patient does not meet criteria. They want to move forward with PEG tube placement. 11/06, Tmas 100.7 this morning, repeat CXR pending, pt cont to demonstrate difficulty managing secretions therefore aspiration risk remains high, this risk will cont and possibly increase with placement of J tube. Will cont to work with [facility] to obtain completed MOLST prior to tube placement. 11/04: need approved checklist to issue DNR order to proceed with feeding tube placement. 11/03 checklist signed by [facility] rep (Dr. Salazar), but [facility] did not like "wording"; therefore, attempting to determine what verbmarckge needs to state 11/02 checklist requesting DNR/DNI completed for [facility] to approve, then for Dr. Salazar to sign. Apparently [facility] has approved PEG placement, but would favor DNR/DNI in place BEFOREHAND, given ho COMPLETE HEART BLOCK with previous colonoscopy. 10/31/18 increasing O2 requirement, now at HF 95% at 40L to maintain SaO2>94%; lane whaley [facility] Director that as patient's PCP for 15 years, would recommend DNR/DNI status-MOLST completed accordingly and gave to [facility] territory representative at bedside. Mr. Wynne stated that he would "expedite" the process, but that "nothing would happen tonight". He would present the case to the [facility] and [facility] Board in AM, then would need concurring and Dr. Salazar to sign off. continue alb 2.5/3% Na q6H 10/31/18 1800 ABG 7.49/62/33/92% (3) Peripheral edema Status: Acute Problem Text: 11/15/18: Most likely third spacing secondary to his low albumin. We will start IV Lasix 20 mg daily and monitor. 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 Dr. Fletcher contacted again about feeding tube since his pulmonary function seems stable. 11/09 NPO, receiving PPN until PEG can be placed, pt appears to be recurrently aspirating oral secretions, therefore PEG is not really going to change his aspiration risk will just assure a nutritional source. 11/08/18: Patient has failed swallow eval. He remains NPO. Currently receiving TPN, surgery consulted for PEG 11/05: gag is visualized today on exam but also has large retropharyngeal salivary pool indicating decreased clearing. 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 There is chronic microvascular disease. 2. No acute intracranial lesion or injury. 1. Probable small, less than 2 mm on the left and left and 1 mm on the right, bilateral posterior communicating artery infundibula. No definite aneurysm. 2. No intracranial stenosis or occlusion. 10/19/18 TTE: 1. Normal left ventricle internal dimensions and wall thickness. Normal regional LV wall motion and wall thickening. Normal LV systolic function. Grade 1 LV diastolic dysfunction. 2. Otherwise normal echocardiogram Doppler findings. (5) Hypernatremia Status: Resolved Problem Text: 11/07/18: Remains WNL. We will continue to monitor 11/06 resolved, NA 141, cont to monitor. 11/05 sodium corrected overnight with D5W, will stop this supplemental fluid for now. 11/04: Still High, will d/c current IV fluid, change to D5W at 60, continue parenteral nutrition baseline NA low 140s c HILARY I 11/03 153 + PPN to IVF 10/31 153; therefore, increased to 120H-favor increased insensible loss c persistent free H20 deficit 10/30 150 (150) favor 2 dehydration; therefore, 1/2 NS 80H (6) Developmental disability Status: Chronic Response to Treatment: Stable Problem Text: no HCP/legal guardian decisions [facility] as of now, FULL CODE status (7) CKD (chronic kidney disease), stage III Status: Chronic Problem Text: 11/01/18: Cr. stable at 1.2 Cr 1.6, baseline 1.0-1.2. IVF ordered for fluid [id number] NS at 100 cc per hour. (8) Schizophrenia Status: Chronic Problem Text: c ho severe agitation 10/30 given NPO status, DVP changed to IV. traz 50 QHS, ris 3 BID, quet 200 QHS on hold c tory 0.5 q6 IV prn and + halo 0.5 IV q6H (hold for sedation) (9) GERD (gastroesophageal reflux disease) Status: Chronic Problem Text: IV Protonix (10) IFG (impaired fasting glucose) Status: Chronic Problem Specific Plan: Monitor Clinically, Repeat Labs Problem Text: [email or web address] 6.0 09/2018 Plan/VTE VTE Prophylaxis Ordered?: Yes Plan Therapy: PT, OT VS, I&O, 24H, Fishbone Vital Signs/I&O Vital Signs Date Time Temp Pulse Resp B/P (MAP) Pulse Ox O2 Delivery O2 Flow Rate FiO2 11/15/18 06:00 99.0 97 20 136/74 (94) 95 11/12/18 23:09 Room Air I&O- Last 24 Hours up to 6 AM 11/15/18 06:00 Intake Total 1730 ml Balance 1730 ml Laboratory Data 24H LABS Laboratory Tests 2 11/14/18 11:13: Bedside Glucose (Misc Panel) 109 11/14/18 18:32: Bedside Glucose (Misc Panel) 108 11/15/18 00:29: Bedside Glucose (Misc Panel) 92 11/15/18 06:32: Immature Granulocyte % (Auto) 2.7, White Blood Count 11.6H, Red Blood Count 2.95L, Hemoglobin 8.9L, Hematocrit 26.7L, Mean Corpuscular Volume 90.5, Mean Corpuscular Hemoglobin 30.2, Mean Corpuscular Hemoglobin Concent 33.3, Red Cell Distribution Width 14.7H, Platelet Count 272, Neutrophils (%) (Auto) 76.1H, Lymphocytes (%) (Auto) 7.0L, Monocytes (%) (Auto) 10.1H, Eosinophils (%) (Auto) 3.8H, Basophils (%) (Auto) 0.3, Neutrophils # (Auto) 8.8H, Lymphocytes # (Auto) 0.8L, Monocytes # (Auto) 1.2H, Eosinophils # (Auto) 0.4, Basophils # (Auto) 0.0, Nucleated Red Blood Cells % (auto) 0.0, Anion Gap 7L, Glomerular Filtration Rate > 60.0, Blood Urea Nitrogen 19H, Creatinine 0.81, Sodium Level 135L, Potassium Level 5.6H, Chloride Level 102, Carbon Dioxide Level 26, Calcium Level 7.5L CBC/BMP Laboratory Tests 11/15/18 06:32 Red Blood Count 2.95 L, Mean Corpuscular Volume 90.5, Mean Corpuscular Hemoglobin 30.2, Mean Corpuscular Hemoglobin Concent 33.3, Red Cell Distribution Width 14.7 H, Neutrophils (%) (Auto) 76.1 H, Lymphocytes (%) (Auto) 7.0 L, Monocytes (%) (Auto) 10.1 H, Eosinophils (%) (Auto) 3.8 H, Basophils (%) (Auto) 0.3, Neutrophils # (Auto) 8.8 H, Lymphocytes # (Auto) 0.8 L, Monocytes # (Auto) 1.2 H, Eosinophils # (Auto) 0.4, Basophils # (Auto) 0.0, Calcium Level 7.5 L CHICO ROBERSON. [facility] Nov 15, 2018 07:36
[2018-11-15] MEDS: HEPARIN SOD (PORCINE) 5000 UNITS/ML VIAL SC SCH ×2 (09:51→21:30)
[2018-11-15] MEDS: FUROSEMIDE 20 MG/2 ML VIAL (J1940) IV SCH (09:51)
[2018-11-15] MEDS: VALPROATE SOD INJ 500 MG in D5W 50 ML IV SCH (09:52)
[2018-11-15] MEDS: AMINO AC/ELECTROLYTE/DEX/CALC 1,000 ML IV SCH (09:52)
[2018-11-15 10:12] LABS: ALBUMIN 0.9 GM/DL (3.2-5.2)
[2018-11-15 10:58] LABS: ALBUMIN 0.9 GM/DL (3.2-5.2); POTASSIUM SERUM 4.5 MEQ/L (3.5-5.1)
[2018-11-15 14:00] VITALS: BP 134/76
[2018-11-15] MEDS ORDERED: FAT EMULSION IV 20% 500 ML IV SCH (18:00)
[2018-11-15] MEDS: PANTOPRAZOLE 40MG INJ (PROTONIX) (C9113) IV SCH (21:30)
[2018-11-15] MEDS: VALPROATE SOD INJ 250 MG in D5W 50 ML IV SCH (21:31)
[2018-11-15 22:00] VITALS: BP 130/72
[2018-11-16] MEDS: AMINO AC/ELECTROLYTE/DEX/CALC 1,000 ML IV SCH ×2 (02:53→18:57)
[2018-11-16] MEDS: SODIUM CHLORIDE HYPERTONIC 3% 15ML NEB SOL INH SCH ×5 (03:21→23:41)
[2018-11-16] MEDS: ALBUTEROL SULFATE 2.5 MG/0.5 ML INH NEB SOLN NEB SCH ×5 (03:22→23:40)
[2018-11-16 06:00] VITALS: BP 147/85
[2018-11-16] MEDS: HALOPERIDOL 5 MG/ML VIAL (J1630) IV SCH ×3 (06:54→22:11)
[2018-11-16] MEDS: HumaLOG INSULIN (NovoLOG) PER UNIT SC SCH ×4 (06:55→18:00)
[2018-11-16] MEDS: SLF 3 ML SYR IV SCH ×3 (06:55→22:11)
[2018-11-16 07:15] LABS: BASO % 0.1 % (0.0-1.0); EOS # 0.3 10^3/uL (0.0-0.5); EOS % 2.9 % (0.0-3.0); HEMATOCRIT 24.7 % (42.0-52.0); HEMOGLOBIN 8.3 g/dl (13.5-17.5); LYMPH # 0.8 10^3/uL (1.5-5.0); MEAN CORPUSCULAR HEMOGLOBIN 29.7 pg (27.0-33.0); MEAN CORPUSCULAR HGB CONC 33.6 g/dl (32.0-36.5); MEAN CORPUSCULAR VOLUME 88.5 fl (80.0-96.0); MONO # 1.2 10^3/uL (0.0-0.8); MONO % 10.2 % (0.0-5.0); NEUTROPHILS # 9.2 10^3/uL (1.5-8.5); NEUTROPHILS % 77.4 % (36.0-66.0); PLATELET COUNT, AUTOMATED 259 10^3/uL (150-450); RED BLOOD COUNT 2.79 10^6/uL (4.30-6.10); WHITE BLOOD COUNT 11.9 10^3/uL (4.0-10.0)
[2018-11-16 07:46] LABS: BLOOD UREA NITROGEN 21 MG/DL (7-18); CALCIUM LEVEL 7.5 MG/DL (8.8-10.2); CARBON DIOXIDE LEVEL 27 MEQ/L (21-32); CHLORIDE LEVEL 100 MEQ/L (98-107); CREATININE FOR GFR 0.76 MG/DL (0.70-1.30); GLOMERULAR FILTRATION RATE > 60.0 (>49); GLUCOSE, FASTING 103 MG/DL (70-100); POTASSIUM SERUM 4.8 MEQ/L (3.5-5.1); SODIUM LEVEL 133 MEQ/L (136-145)
--- NOTE | 2018-11-16 07:47 | IPNPDOC ---
Subjective Date Seen The patient was seen on 11/16/18. Subjective Chief Complaint/HPI PICC insertion today General: Reports: ROS Unobtainable Objective Physical Examination General Exam: Positive: Alert, Cooperative (non-verbal, reaches for my hands), No Acute Distress Eye Exam: Positive: Ptosis (right eyelid); Negative: Sclera icteric ENT Exam: Positive: Mucous membr. moist/pink Neck Exam: Positive: Supple; Negative: thyromegaly Chest Exam: Positive: Rhonchi (minimal transmitted respiratory sounds from hypopharynx. no strodor.), Other (referred upper airway sounds BL); Negative: Wheezing, Diminished Heart Exam: Positive: Rate Normal, Regular Rhythm, Normal S1, Normal S2; Negative: Murmurs, Rubs Telemetry: Positive: No significant arrhythmia Abdomen Exam: Positive: Normal bowel sounds, Soft; Negative: Tenderness, Hepatospenomegaly Extremity Exam: Positive: Edema (diffusely edematous with 1 mm pitting edema of BLE, BUE.) Skin Exam: Positive: Nl turgor and temperature Neuro Exam: Positive: Other (engages eye contact. no speech today.) Assessment /Plan Problems (1) Acute respiratory failure with hypoxia Status: Acute Response to Treatment: Progressing Problem Text: 11/16/18: Stable 11/15/18: He continues to pool secretions. Meeting today to discuss long plan of care with feeding tube 11/14/18: Stable. He continues to have pooled secretions 11/13: respiratory status stable. he has secretions that pool in hypopharynx posing ongoing aspiration risk and trigger temp increases likely related to microaspiration. 11/10 Resp status stable, 11/09 Await PEG placement, will cont with PPN until PEG placed. Resp status stable with room air O2. 11/08/18 - Add Scapolamine patch per ST. Plan PEG (Dr. Fletcher Consulted) 11/07/18: Repeat CXR:No acute disease. He does require suctioning. [facility] and [facility] do not support DNR/DNI as they feel patient does not meet criteria. They want to move forward with PEG tube placement. 11/06, Tmas 100.7 this morning, repeat CXR pending, pt cont to demonstrate difficulty managing secretions therefore aspiration risk remains high, this risk will cont and possibly increase with placement of J tube. Will cont to work with [facility] to obtain completed MOLST prior to tube placement. 11/04: need approved checklist to issue DNR order to proceed with feeding tube placement. 11/03 checklist signed by [facility] rep (Dr. Salazar), but [facility] did not like "wording"; therefore, attempting to determine what verbia needs to state 11/02 checklist requesting DNR/DNI completed for [facility] to approve, then for Dr. Salazar to sign. Apparently [facility] has approved PEG placement, but would favor DNR/DNI in place BEFOREHAND, given ho COMPLETE HEART BLOCK with previous colonoscopy. 10/31/18 increasing O2 requirement, now at HF 95% at 40L to maintain SaO2>94%; lane whaley [facility] Director that as patient's PCP for 15 years, would recommend DNR/DNI status-MOLST completed accordingly and gave to [facility] special service representative at bedside. Mr. Wynne stated that he would "expedite" the process, but that "nothing would happen tonight". He would present the case to the [facility] and [facility] Board in AM, then would need concurring and Dr. Salazar to sign off. continue alb 2.5/3% Na q6H 10/31/18 1800 ABG 7.49/62/33/92% (2) Peripheral edema Status: Acute Problem Text: 11/16/18: Continue with current Lasix, administer 25% albumin infusion to try to improve tissue quality. PICC insertion today 11/15/18: Most likely third spacing secondary to his low albumin. We will start IV Lasix 20 mg daily and monitor. We will hopefully have a decision today regarding what direction we are going in term of nutritional support, RESEARCH DIETITIAN vs Tube feed (3) Oropharyngeal dysphagia Status: Chronic Problem Text: 11/16/18: PEG tube placement tomorrow 11/15/18: We await discussions with [facility], RESEARCH DIETITIAN vs Peg tube placement 11/14/18: We await discussions with [facility] and surgeon input regarding tube plac ement 11/13: although gag was demonstrated to be present on 11/05, he has pooling and not able to actively swallow. Dr. Fletcher contacted again about feeding tube since his pulmonary function seems stable. 11/09 NPO, receiving PPN until PEG can be placed, pt appears to be recurrently aspirating oral secretions, therefore PEG is not really going to change his aspiration risk will just assure a nutritional source. 11/08/18: Patient has failed swallow eval. He remains NPO. Currently receiving TPN, surgery consulted for PEG 11/05: gag is visualized today on exam but also has large retropharyngeal salivary pool indicating decreased clearing. 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 There is chronic microvascular disease. 2. No acute intracranial lesion or injury. 1. Probable small, less than 2 mm on the left and left and 1 mm on the right, bilateral posterior communicating artery infundibula. No definite aneurysm. 2. No intracranial stenosis or occlusion. 10/19/18 TTE: 1. Normal left ventricle internal dimensions and wall thickness. Normal regional LV wall motion and wall thickening. Normal LV systolic function. Grade 1 LV diastolic dysfunction. 2. Otherwise normal echocardiogram Doppler findings. (4) Hypernatremia Status: Resolved Problem Text: 11/07/18: Remains WNL. We will continue to monitor 11/06 resolved, NA 141, cont to monitor. 11/05 sodium corrected overnight with D5W, will stop this supplemental fluid for now. 11/04: Still High, will d/c current IV fluid, change to D5W at 60, continue parenteral nutrition baseline NA low 140s c HILARY I 11/03 153 + PPN to IVF 10/31 153; therefore, increased to 120H-favor increased insensible loss c persistent free H20 deficit 10/30 150 (150) favor 2 dehydration; therefore, 1/2 NS 80H (5) Developmental disability Status: Chronic Response to Treatment: Stable Problem Text: no HCP/legal guardian decisions [facility] as of now, FULL CODE status (6) CKD (chronic kidney disease), stage III Status: Chronic Problem Text: 11/01/18: Cr. stable at 1.2 Cr 1.6, baseline 1.0-1.2. IVF ordered for fluid [id number] NS at 100 cc per hour. (7) Schizophrenia Status: Chronic Problem Text: c ho severe agitation 10/30 given NPO status, DVP changed to IV. traz 50 QHS, ris 3 BID, quet 200 QHS on hold c tory 0.5 q6 IV prn and + halo 0.5 IV q6H (hold for sedation) (8) GERD (gastroesophageal reflux disease) Status: Chronic Problem Text: IV Protonix (9) IFG (impaired fasting glucose) Status: Chronic Problem Specific Plan: Monitor Clinically, Repeat Labs Problem Text: [id number] 6.0 09/2018 (10) Aspiration pneumonia Status: Resolved Problem Text: 11/15/18: Abx stopped yesterday. WBC 11.6 today. Patient remains an aspiration risk. Currently NPO with TPN 11/14/18: WBC down to 10.3. Tmax 100.1. Repeat chest x-ray negative for infiltrates. Continue with Zoysn Day #16 11/13: WBC and temp bounced up again overnight. Zosyn continues. Will repeat CXR. 11/10 Tmax 100.1, WBC down slightly at 14. Zosyn D11. 11/09 T max 100.9, WBC increased from 14.8 to 16.5, Zosyn D10, pt is likely recurrently aspirating, exam has revealed pool of oral secretions in post pharynx. [facility] has recinded their agreement for DNR, DNI stating pt doesn't meet criteria. Unfortunately the pt won't be able to live on IV antibiotics to treat his recurrent aspiration of oral secretions and this creates quite a challenging situation, will address further with attending. 11/08 - Zosyn D#9 - WBC trending down, but continues to spike temps - Tmax 101.6 last pm F/U CXR 11/07 - negative 11/07/18: Day #8 Zoysn. WBC 18.4. T-Max 100.4. CXR negative. BC negative 11/06 Zosyn D7. Tmax 100.7 cont to monitor. 11/05/ will check CXR in am to see if he has any clearing. D6 antibiotics. sufficiently stable to transfer to floor with cont. O2 monitoring D5 pip/lizeth remains NPO/asp precautions 11/02/18: WBC continues to improve along with clinical presentation. continue to wean off of oxygen needs. Continue CPT and suctioning. 11/01/18: WBC improved at 17,000. 10/29 CT chest: 1. Airspace consolidations in the bilateral dependent lower lobes significantly larger on the right. 2. Aspirated material in the bronchus intermedius and right lower lobe bronchus. Plan/VTE VTE Prophylaxis Ordered?: Yes Plan Therapy: PT, OT VS, I&O, 24H, Fishbone Vital Signs/I&O Vital Signs Date Time Temp Pulse Resp B/P (MAP) Pulse Ox O2 Delivery O2 Flow Rate FiO2 11/16/18 06:00 96.3 99 147/85 (105) 96 11/15/18 22:00 17 11/12/18 23:09 Room Air I&O- Last 24 Hours up to 6 AM 11/16/18 06:00 Intake Total 1820 ml Output Total 2525 ml Balance -705 ml Laboratory Data 24H LABS Laboratory Tests 2 11/15/18 10:09: Albumin 0.9L 11/15/18 18:41: Bedside Glucose (Misc Panel) 93 11/16/18 01:03: Bedside Glucose (Misc Panel) 99 11/16/18 06:33: Bedside Glucose (Misc Panel) 108 11/16/18 07:02: Immature Granulocyte % (Auto) 2.4, White Blood Count 11.9H, Red Blood Count 2.79L, Hemoglobin 8.3L, Hematocrit 24.7L, Mean Corpuscular Volume 88.5, Mean Co rpuscular Hemoglobin 29.7, Mean Corpuscular Hemoglobin Concent 33.6, Red Cell Distribution Width 14.4, Platelet Count 259, Neutrophils (%) (Auto) 77.4H, Lymphocytes (%) (Auto) 7.0L, Monocytes (%) (Auto) 10.2H, Eosinophils (%) (Auto) 2.9, Basophils (%) (Auto) 0.1, Neutrophils # (Auto) 9.2H, Lymphocytes # (Auto) 0.8L, Monocytes # (Auto) 1.2H, Eosinophils # (Auto) 0.3, Basophils # (Auto) 0.0, Nucleated Red Blood Cells % (auto) 0.0 CBC/BMP Laboratory Tests 11/15/18 10:09 11/16/18 07:02 Red Blood Count 2.79 L, Mean Corpuscular Volume 88.5, Mean Corpuscular Hemoglobin 29.7, Mean Corpuscular Hemoglobin Concent 33.6, Red Cell Distribution Width 14.4, Neutrophils (%) (Auto) 77.4 H, Lymphocytes (%) (Auto) 7.0 L, Monocytes (%) (Auto) 10.2 H, Eosinophils (%) (Auto) 2.9, Basophils (%) (Auto) 0.1, Neutrophils # (Auto) 9.2 H, Lymphocytes # (Auto) 0.8 L, Monocytes # (Auto) 1.2 H, Eosinophils # (Auto) 0.3, Basophils # (Auto) 0.0 CHICO ROBERSON. [facility] Nov 16, 2018 07:46
[2018-11-16] MEDS: HEPARIN SOD (PORCINE) 5000 UNITS/ML VIAL SC SCH (09:00)
[2018-11-16] MEDS: VALPROATE SOD INJ 500 MG in D5W 50 ML IV SCH (10:57)
[2018-11-16] MEDS: FUROSEMIDE 20 MG/2 ML VIAL (J1940) IV SCH (10:57)
[2018-11-16 14:25] VITALS: BP 142/84
[2018-11-16] MEDS ORDERED: LIDOCAINE 1% MDV 20ML VIAL As Ordered ONE (16:29)
[2018-11-16 18:15] VITALS: BP 136/78
[2018-11-16 18:51] VITALS: BP 135/79
[2018-11-16] MEDS: FAT EMULSION IV 20% 500 ML IV SCH (18:56)
[2018-11-16 21:53] VITALS: BP 137/74
[2018-11-16] MEDS: PANTOPRAZOLE 40MG INJ (PROTONIX) (C9113) IV SCH (22:11)
[2018-11-16] MEDS: VALPROATE SOD INJ 250 MG in D5W 50 ML IV SCH (22:12)
[2018-11-17] VITALS (8 sets, daily range): BP systolic 122–139; BP diastolic 67–80
[2018-11-17] MEDS: HumaLOG INSULIN (NovoLOG) PER UNIT SC SCH ×4 (00:07→17:22)
[2018-11-17] MEDS: HALOPERIDOL 5 MG/ML VIAL (J1630) IV SCH ×3 (05:54→21:10)
[2018-11-17] MEDS: SLF 3 ML SYR IV SCH ×3 (05:55→21:11)
[2018-11-17] MEDS: ACETAMINOPHEN 650 MG SUPP PR PRN ×2 (05:55→21:11)
[2018-11-17] MEDS: SODIUM CHLORIDE 0.9% INJ 10 ML SYR IV SCH ×2 (06:12→17:09)
[2018-11-17 07:14] LABS: BASO % 0.2 % (0.0-1.0); EOS # 0.4 10^3/uL (0.0-0.5); EOS % 3.4 % (0.0-3.0); HEMATOCRIT 24.7 % (42.0-52.0); HEMOGLOBIN 8.1 g/dl (13.5-17.5); LYMPH # 0.7 10^3/uL (1.5-5.0); LYMPH % 6.2 % (24.0-44.0); MEAN CORPUSCULAR HEMOGLOBIN 29.1 pg (27.0-33.0); MEAN CORPUSCULAR HGB CONC 32.8 g/dl (32.0-36.5); MEAN CORPUSCULAR VOLUME 88.8 fl (80.0-96.0); MONO # 1.2 10^3/uL (0.0-0.8); MONO % 10.5 % (0.0-5.0); NEUTROPHILS # 8.5 10^3/uL (1.5-8.5); NEUTROPHILS % 75.3 % (36.0-66.0); PLATELET COUNT, AUTOMATED 260 10^3/uL (150-450); RED BLOOD COUNT 2.78 10^6/uL (4.30-6.10); WHITE BLOOD COUNT 11.3 10^3/uL (4.0-10.0)
[2018-11-17] MEDS: SODIUM CHLORIDE HYPERTONIC 3% 15ML NEB SOL INH SCH ×3 (07:25→20:16)
[2018-11-17] MEDS: ALBUTEROL SULFATE 2.5 MG/0.5 ML INH NEB SOLN NEB SCH ×3 (07:25→20:16)
[2018-11-17 07:36] LABS: BLOOD UREA NITROGEN 25 MG/DL (7-18); CALCIUM LEVEL 7.8 MG/DL (8.8-10.2); CARBON DIOXIDE LEVEL 27 MEQ/L (21-32); CHLORIDE LEVEL 100 MEQ/L (98-107); CREATININE FOR GFR 0.79 MG/DL (0.70-1.30); GLOMERULAR FILTRATION RATE > 60.0 (>49); GLUCOSE, FASTING 100 MG/DL (70-100); POTASSIUM SERUM 4.5 MEQ/L (3.5-5.1); SODIUM LEVEL 133 MEQ/L (136-145)
--- NOTE | 2018-11-17 07:53 | IPNPDOC ---
Subjective Date Seen The patient was seen on 11/17/18. Subjective Chief Complaint/HPI No concerns expressed by nursing staff. PEG tube placement today General: Reports: ROS Unobtainable Objective Physical Examination General Exam: Positive: Alert, No Acute Distress Eye Exam: Positive: Ptosis (right eyelid); Negative: Sclera icteric ENT Exam: Positive: Mucous membr. moist/pink Neck Exam: Positive: Supple; Negative: thyromegaly Chest Exam: Positive: Rhonchi (minimal transmitted respiratory sounds from hypopharynx. no strodor.), Other (referred upper airway sounds BL); Negative: Wheezing, Diminished Heart Exam: Positive: Rate Normal, Regular Rhythm, Normal S1, Normal S2; Negative: Murmurs, Rubs Telemetry: Positive: No significant arrhythmia Abdomen Exam: Positive: Normal bowel sounds, Soft; Negative: Tenderness, Hepatospenomegaly Extremity Exam: Positive: Edema (diffusely edematous with 1 mm pitting edema of BLE, BUE.) Skin Exam: Positive: Nl turgor and temperature Neuro Exam: Positive: Other (engages eye contact. no speech today.) Assessment /Plan Problems (1) Oropharyngeal dysphagia Status: Chronic Problem Text: 11/17/18: PEG Tube placement today. [facility] [email or web address]] staff were specifically aware of potential increased risk for aspiration related to starting feeding following tube placement. 11/16/18: PEG tube placement tomorrow 11/15/18: We await discussions with [facility] [[email or web address]], CLERK GUIDE vs Peg tube placement 11/14/18: We await discussions with [facility] [[email or web address]] and surgeon input regarding tube placement 11/13: although gag was demonstrated to be present on 11/05, he has pooling and not able to actively swallow. Dr. Fletcher contacted again about feeding tube since his pulmonary function seems stable. 11/09 NPO, receiving PPN until PEG can be placed, pt appears to be recurrently aspirating oral secretions, therefore PEG is not really going to change his aspiration risk will just assure a nutritional source. 11/08/18: Patient has failed swallow eval. He remains NPO. Currently receiving TPN, surgery consulted for PEG 11/05: gag is visualized today on exam but also has large retropharyngeal salivary pool indicating decreased clearing. 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 There is chronic microvascular disease. 2. No acute intracranial lesion or injury. 1. Probable small, less than 2 mm on the left and left and 1 mm on the right, bilateral posterior communicating artery infundibula. No definite aneurysm. 2. No intracranial stenosis or occlusion. 10/19/18 TTE: 1. Normal left ventricle internal dimensions and wall thickness. Normal regional LV wall motion and wall thickening. Normal LV systolic function. Grade 1 LV diastolic dysfunction. 2. Otherwise normal echocardiogram Doppler findings. (2) Peripheral edema Status: Acute Problem Text: 11/17/18: Continue with current regimen 11/16/18: Continue with current Lasix, administer 25% albumin infusion to try to improve tissue quality. PICC insertion today 11/15/18: Most likely third spacing secondary to his low albumin. We will start IV Lasix 20 mg daily and monitor. We will hopefully have a decision today regarding what direction we are going in term of nutritional support, CLERK GUIDE vs Tube feed (3) Developmental disability Status: Chronic Response to Treatment: Stable Problem Text: no HCP/legal guardian decisions care per [facility] as of now, FULL CODE status (4) CKD (chronic kidney disease), stage III Status: Chronic Problem Text: 11/01/18: Cr. stable at 1.2 Cr 1.6, baseline 1.0-1.2. IVF ordered for fluid [id number] NS at 100 cc per hour. (5) Schizophrenia Status: Chronic Problem Text: c ho severe agitation 10/30 given NPO status, DVP changed to IV. traz 50 QHS, ris 3 BID, quet 200 QHS on hold c tory 0.5 q6 IV prn and + halo 0.5 IV q6H (hold for sedation) (6) GERD (gastroesophageal reflux disease) Status: Chronic Problem Text: IV Protonix (7) IFG (impaired fasting glucose) Status: Chronic Problem Specific Plan: Monitor Clinically, Repeat Labs Problem Text: hgba1c 6.0 09/2018 (8) Aspiration pneumonia Status: Resolved Problem Text: 11/15/18: Abx stopped yesterday. WBC 11.6 today. Patient remains an aspiration risk. Currently NPO with TPN 11/14/18: WBC down to 10.3. Tmax 100.1. Repeat chest x-ray negative for infiltrates. Continue with Zoysn Day #16 11/13: WBC and temp bounced up again overnight. Zosyn continues. Will repeat CXR. 11/10 Tmax 100.1, WBC down slightly at 14. Zosyn D11. 11/09 T max 100.9, WBC increased from 14.8 to 16.5, Zosyn D10, pt is likely recurrently aspirating, exam has revealed pool of oral secretions in post pharynx. [facility] [[email or web address] has recinded their agreement for DNR, DNI stating pt doesn't meet criteria. Unfortunately the pt won't be able to live on IV antibiotics to treat his recurrent aspiration of oral secretions and this creates quite a challenging situation, will address further with attending. 11/08 - Zosyn D#9 - WBC trending down, but continues to spike temps - Tmax 101.6 last pm F/U CXR 11/07 - negative 11/07/18: Day #8 Zoysn. WBC 18.4. T-Max 100.4. CXR negative. BC negative 11/06 Zosyn D7. Tmax 100.7 cont to monitor. 11/05/ will check CXR in am to see if he has any clearing. D6 antibiotics. sufficiently stable to transfer to floor with cont. O2 monitoring D5 pip/lizeth remains NPO/asp precautions 11/02/18: WBC continues to improve along with clinical presentation. continue to wean off of oxygen needs. Continue CPT and suctioning. 11/01/18: WBC improved at 17,000. 10/29 CT chest: 1. Airspace consolidations in the bilateral dependent lower lobes significantly larger on the right. 2. Aspirated material in the bronchus intermedius and right lower lobe bronchus. (9) Acute respiratory failure with hypoxia Status: Resolved Response to Treatment: Progressing Problem Text: 11/16/18: Stable 11/15/18: He continues to pool secretions. Meeting today to discuss long plan of care with feeding tube 11/14/18: Stable. He continues to have pooled secretions 11/13: respiratory status stable. he has secretions that pool in hypopharynx posing ongoing aspiration risk and trigger temp increases likely related to mi croaspiration. 11/10 Resp status stable, 11/09 Await PEG placement, will cont with PPN until PEG placed. Resp status stable with room air O2. 11/08/18 - Add Scapolamine patch per ST. Plan PEG (Dr. Fletcher Consulted) 11/07/18: Repeat CXR:No acute disease. He does require suctioning. [facility] [[email or web address] and [facility] do not support DNR/DNI as they feel patient does not meet criteria. They want to move forward with PEG tube placement. 11/06, Tmas 100.7 this morning, repeat CXR pending, pt cont to demonstrate diff iculty managing secretions therefore aspiration risk remains high, this risk will cont and possibly increase with placement of J tube. Will cont to work with [facility] to obtain completed MOLST prior to tube placement. 11/04: need approved checklist to issue DNR order to proceed with feeding tube placement. 11/03 checklist signed by [facility] rep (Dr. Salazar), but [facility] did not like "wording"; therefore, attempting to determine what [facility] needs to state 11/02 checklist requesting DNR/DNI completed for [facility] to approve, then for Dr. Salazar to sign. Apparently [facility] has approved PEG placement, but would favor DNR/DNI in place BEFOREHAND, given ho COMPLETE HEART BLOCK with previous colonoscopy. 10/31/18 increasing O2 requirement, now at HF 95% at 40L to maintain SaO2>94%; lane whaley [facility] [[email or web address]] Director that as patient's PCP for 15 years, would recommend DNR/DNI status-MOLST completed accordingly and gave to [facility] [[email or web address]] account manager sales representative at bedside. Mr. Wynne stated that he would "expedite" the process, but that "nothing would happen tonight". He would present the case to the [facility] [[email or web address]] and [facility] Board in AM, then would need concurring and Dr. Salazar to sign off. continue alb 2.5/3% Na q6H 10/31/18 1800 ABG 7.49/62/33/92% (10) Hypernatremia Status: Resolved Problem Text: 11/07/18: Remains WNL. We will continue to monitor 11/06 resolved, NA 141, cont to monitor. 9/8 sodium corrected overnight with D5W, will stop this supplemental fluid for now. 11/04: Still High, will d/c current IV fluid, change to D5W at 60, continue parenteral nutrition baseline NA low 140s c HILARY I 11/03 153 + PPN to IVF 10/31 153; therefore, increased to 120H-favor increased insensible loss c persistent free H20 deficit 10/30 150 (150) favor 2 dehydration; therefore, 03/01 NS 80H Plan/VTE VTE Prophylaxis Ordered?: Yes Plan Therapy: PT, OT VS, I&O, 24H, Fishbone Vital Signs/I&O Vital Signs Date Time Temp Pulse Resp B/P (MAP) Pulse Ox O2 Delivery O2 Flow Rate FiO2 11/16/18 21:53 98.7 95 19 137/74 (95) 95 11/12/18 23:09 Room Air I&O- Last 24 Hours up to 6 AM 11/17/18 06:00 Intake Total 0 ml Output Total 1700 ml Balance -1700 ml Laboratory Data 24H LABS Laboratory Tests 2 11/16/18 12:11: Bedside Glucose (Misc Panel) 95 11/16/18 18:16: Bedside Glucose (Misc Panel) 98 11/17/18 00:02: Bedside Glucose (Misc Panel) 113 11/17/18 05:47: Bedside Glucose (Misc Panel) 106 11/17/18 06:54: Immature Granulocyte % (Auto) 4.4H, White Blood Count 11.3H, Red Blood Count 2.78L, Hemoglobin 8.1L, Hematocrit 24.7L, Mean Corpuscular Volume 88.8, Mean C orpuscular Hemoglobin 29.1, Mean Corpuscular Hemoglobin Concent 32.8, Red Cell Distribution Width 14.4, Platelet Count 260, Neutrophils (%) (Auto) 75.3H, Lymphocytes (%) (Auto) 6.2L, Monocytes (%) (Auto) 10.5H, Eosinophils (%) (Auto) 3.4H, Basophils (%) (Auto) 0.2, Neutrophils # (Auto) 8.5, Lymphocytes # (Auto) 0.7L, Monocytes # (Auto) 1.2H, Eosinophils # (Auto) 0.4, Basophils # (Auto) 0.0, Nucleated Red Blood Cells % (auto) 0.0, Anion Gap 6L, Glomerular Filtration Rate > 60.0, Blood Urea Nitrogen 25H, Creatinine 0.79, Sodium Level 133L, Potassium Level 4.5, Chloride Level 100, Carbon Dioxide Level 27, Calcium Level 7.8L CBC/BMP Laboratory Tests 11/17/18 06:54 Red Blood Count 2.78 L, Mean Corpuscular Volume 88.8, Mean Corpuscular Hemoglobin 29.1, Mean Corpuscular Hemoglobin Concent 32.8, Red Cell Distribution Width 14.4, Neutrophils (%) (Auto) 75.3 H, Lymphocytes (%) (Auto) 6.2 L, Monocytes (%) (Auto) 10.5 H, Eosinophils (%) (Auto) 3.4 H, Basophils (%) (Auto) 0.2, Neutrophils # (Auto) 8.5, Lymphocytes # (Auto) 0.7 L, Monocytes # (Auto) 1.2 H, Eosinophils # (Auto) 0.4, Basophils # (Auto) 0.0, Calcium Level 7.8 L CHICO ROBERSON Nov 17, 2018 07:53 Saqib Haynes MD Nov 17, 2018 13:25
[2018-11-17] MEDS: SCOPOLAMINE 1MG TRANSDERMAL PATCH TOP SCH (08:58)
[2018-11-17] MEDS: FUROSEMIDE 20 MG/2 ML VIAL (J1940) IV SCH (08:58)
[2018-11-17] MEDS: VALPROATE SOD INJ 500 MG in D5W 50 ML IV SCH (09:00)
[2018-11-17] MEDS ORDERED: PROPOFOL 200 MG/20 ML VIAL As Ordered ONE (10:00)
[2018-11-17] MEDS ORDERED: LIDOCAINE 2% INJ 100 MG/5 ML SDV (FOR ANES.) As Ordered ONE (10:00)
[2018-11-17] MEDS ORDERED: ONDANSETRON 4MG/2ML VIAL (J2405) As Ordered ONE (10:00)
[2018-11-17] MEDS ORDERED: LIDOCAINE 1% MDV 20ML VIAL XX ONE (10:11)
--- NOTE | 2018-11-17 10:41 | ROOR ---
Patient Name: Joel Laureano Procedure Date: 11/17/2018 8:33 AM Date of : 1950 Age: 68 Room: Main OR Gender: Male Note Status: Finalized Procedure: EGD and PEG Tube Placement Indications: Dysphagia Providers: eSan Fletcher Jr, MD Referring MD: Sean Fletcher Jr, MD Requesting Provider: Medicines: Propofol per Anesthesia Complications: No immediate complications. Procedure: Pre-Anesthesia Assessment: - Prior to the procedure, a History and Physical was performed, and patient medications and allergies were reviewed. The patient is competent. The risks and benefits of the procedure and the sedation options and risks were discussed with the patient. All questions were answered and informed consent was obtained. Patient identification and proposed procedure were verified by the physician and the nurse in the pre-procedure area and in the procedure room. Mental Status Examination: alert and oriented. Airway Examination: normal oropharyngeal airway and neck mobility. Respiratory Examination: clear to auscultation. CV Examination: normal. ASA Grade Assessment: III - A patient with severe systemic disease. After reviewing the risks and benefits, the patient was deemed in satisfactory condition to undergo the procedure. The anesthesia plan was to use moderate sedation / analgesia (conscious sedation). Immediately prior to administration of medications, the patient was re-assessed for adequacy to receive sedatives. The heart rate, respiratory rate, oxygen saturations, blood pressure, adequacy of pulmonary ventilation, and response to care were monitored throughout the procedure. The physical status of the patient was re-assessed after the procedure. The Endoscope was introduced through the mouth, and advanced to the second part of duodenum. The upper GI endoscopy was accomplished without difficulty. The patient tolerated the procedure well. Findings: The upper third of the esophagus, middle third of the esophagus and lower third of the esophagus were normal. The gastric fundus, gastric body, gastric antrum, prepyloric region of the stomach and pylorus were normal. The patient was placed in the supine position for PEG placement. The stomach was insufflated to appose gastric and abdominal ayers. A site was located in the antrum of the stomach with excellent transillumination and manual external pressure for placement. The abdominal wall was marked and prepped in a sterile manner. The area was anesthetized with 5 mL of 1% lidocaine. The trocar needle was introduced through the abdominal wall and into the stomach under direct endoscopic view. A snare was introduced through the endoscope and opened in the gastric lumen. The guide wire was passed through the trocar and into the open snare. The snare was closed around the guide wire. The endoscope and snare were removed, pulling the wire out through the mouth. A skin incision was made at the site of needle insertion. The externally removable 20 Fr Tripp-Cook gastrostomy tube was lubricated. The G-tube was passed over the guide wire through the mouth, and into the stomach. The trocar needle was removed, and the gastrostomy tube was pulled out from the stomach through the skin. The guide wire was removed, and the external bumper attached to the gastrostomy tube. The feeding tube was then cut to an appropriate length. The final position of the gastrostomy tube was confirmed by relook endoscopy, and skin marking noted to be 3 cm at the external bumper. The final tension and compression of the abdominal wall by the PEG tube and external bumper were checked and revealed that the bumper was loose and lightly touching the skin and that the PEG balloon was loose and lightly touching the stomach. The feeding tube was capped, and the tube site was cleaned and dressed. The duodenal bulb, first portion of the duodenum and second portion of the duodenum were normal. Impression: - Normal upper third of esophagus, middle third of esophagus and lower third of esophagus. - Normal gastric fundus, gastric body, antrum, prepyloric region of the stomach and pylorus. - Normal duodenal bulb, first portion of the duodenum and second portion of the duodenum. - An externally removable PEG placement was successfully completed. - No specimens collected. Recommendation: - Admit the patient to [facility] for ongoing care. Sean Fletcher MD Sean Fletcher Jr, MD 11/17/2018 10:41:13 AM Electronically signed by Sean Fletcher Jr, MD Number of Addenda: 0 Note Initiated On: 11/17/2018 8:33 AM Estimated Blood Loss: Estimated blood loss: none.
[2018-11-17] MEDS ORDERED: LR 1,000 ML IV SCH (11:00)
[2018-11-17] MEDS ORDERED: ONDANSETRON 4MG/2ML VIAL (J2405) IV PRN (11:00)
[2018-11-17] MEDS ORDERED: PROMETHAZINE INJ 25 MG/ML VIAL (J2550) IV PRN (11:00)
[2018-11-17] MEDS ORDERED: HYDROMORPHONE HCL 0.5 MG/ 0.5 ML SYRINGE (J1170 PER 1) IV PRN (11:00)
[2018-11-17] MEDS: AMINO AC/ELECTROLYTE/DEX/CALC 1,000 ML IV SCH (11:46)
[2018-11-17] MEDS: FAT EMULSION IV 20% 500 ML IV SCH (17:09)
--- NOTE | 2018-11-17 17:32 | REP ---
Procedure: PICC line insertion with Bekah The procedure was performed under the direct supervision of Dr. Damico. The risks and benefits of the procedure were explained to the patient and informed consent was obtained. The right basilic vein was localized using ultrasound guidance. The skin was prepped and draped in a sterile fashion. 2% lidocaine was used as a local anesthetic. Using ultrasound guidance the basilic vein was cannulated and a 0.018 guidewire was inserted and advanced to the SVC using fluoroscopic guidance. The needle was removed and a 5.5 [place]an dilator and peel-away sheath was inserted over the guide wire. A 5.5 [place]an dual lumen catheter was cut to length of 34 cm. The dilator was removed and the catheter was inserted over the guide wire with the tip ending in the SVC. The peel-away sheath was removed and the catheter was flushed with heparinized saline as per Hospital protocol. The catheter was affixed to the skin and a sterile dressing was applied. The patient tolerated the procedure well and there were no immediate complications. 0.1 minutes of fluoro time was utilized for this procedure. Electronically Signed by ANA Lobo 11/17/2018 04:14 P Electronically Signed by Anjel Damico MD 11/17/2018 05:23 P
[2018-11-17] MEDS ORDERED: FAT EMULSION IV 20% 500 ML IV SCH (18:00)
[2018-11-17] MEDS: HEPARIN SOD (PORCINE) 5000 UNITS/ML VIAL SC SCH ×2 (21:00→22:21)
[2018-11-17] MEDS: PANTOPRAZOLE 40MG INJ (PROTONIX) (C9113) IV SCH (21:10)
[2018-11-17] MEDS: VALPROATE SOD INJ 250 MG in D5W 50 ML IV SCH (21:10)
[2018-11-18 02:00] VITALS: BP 138/69
[2018-11-18] MEDS: ALBUTEROL SULFATE 2.5 MG/0.5 ML INH NEB SOLN NEB SCH ×4 (02:04→20:30)
[2018-11-18] MEDS: SODIUM CHLORIDE HYPERTONIC 3% 15ML NEB SOL INH SCH ×4 (02:04→20:30)
[2018-11-18] MEDS: AMINO AC/ELECTROLYTE/DEX/CALC 1,000 ML IV SCH (04:42)
[2018-11-18] MEDS: HALOPERIDOL 5 MG/ML VIAL (J1630) IV SCH ×3 (05:46→21:29)
[2018-11-18] MEDS: HumaLOG INSULIN (NovoLOG) PER UNIT SC SCH ×3 (05:47→12:00)
[2018-11-18] MEDS: SLF 3 ML SYR IV SCH ×3 (05:49→21:31)
[2018-11-18] MEDS: SODIUM CHLORIDE 0.9% INJ 10 ML SYR IV SCH ×2 (05:50→14:14)
[2018-11-18 06:00] VITALS: BP 143/73
[2018-11-18 06:32] LABS: HEMATOCRIT 27.7 % (42.0-52.0); HEMOGLOBIN 9.1 g/dl (13.5-17.5); MEAN CORPUSCULAR HEMOGLOBIN 30.1 pg (27.0-33.0); MEAN CORPUSCULAR HGB CONC 32.9 g/dl (32.0-36.5); MEAN CORPUSCULAR VOLUME 91.7 fl (80.0-96.0); PLATELET COUNT, AUTOMATED 253 10^3/uL (150-450); RED BLOOD COUNT 3.02 10^6/uL (4.30-6.10); WHITE BLOOD COUNT 10.9 10^3/uL (4.0-10.0)
[2018-11-18 06:58] LABS: ALBUMIN 1.1 GM/DL (3.2-5.2); ALT/SGPT 12 U/L (12-78); BILIRUBIN,TOTAL 0.5 MG/DL (0.2-1.0); BLOOD UREA NITROGEN 20 MG/DL (7-18); CALCIUM LEVEL 7.7 MG/DL (8.8-10.2); CARBON DIOXIDE LEVEL 26 MEQ/L (21-32); CHLORIDE LEVEL 101 MEQ/L (98-107); CREATININE FOR GFR 0.71 MG/DL (0.70-1.30); GLOMERULAR FILTRATION RATE > 60.0 (>49); GLUCOSE, FASTING 92 MG/DL (70-100); POTASSIUM SERUM 4.7 MEQ/L (3.5-5.1); SODIUM LEVEL 136 MEQ/L (136-145); TOTAL PROTEIN 5.6 GM/DL (6.4-8.2)
[2018-11-18 07:16] LABS: ATYPICAL LYMPH 1 % (0-5); BASOPHILS 1 % (0-1); EOSINOPHILS 4 % (0-3); LYMPHOCYTES 11 % (16-44); MONOCYTES 1 % (0-5); MYELOCYTES 1 % (0-0); NEUTROPHILS 78 % (28-66); PLATELET ESTIMATE NORMAL (NORMAL)
[2018-11-18 07:17] LABS: ANISOCYTOSIS 1+
[2018-11-18] MEDS: FUROSEMIDE 20 MG/2 ML VIAL (J1940) IV SCH (09:30)
[2018-11-18] MEDS: HEPARIN SOD (PORCINE) 5000 UNITS/ML VIAL SC SCH ×2 (09:30→21:30)
[2018-11-18] MEDS: VALPROATE SOD INJ 500 MG in D5W 50 ML IV SCH (09:31)
--- NOTE | 2018-11-18 13:23 | IPNPDOC ---
Subjective Date Seen The patient was seen on 11/18/18. Subjective Chief Complaint/HPI Nurses report that his tube feeds were started today. They're running continuously. There seems to be no difficulty with him tolerating them. General: Reports: ROS Unobtainable Objective Physical Examination General Exam: Positive: Alert, No Acute Distress Eye Exam: Positive: Ptosis (right eyelid); Negative: Sclera icteric ENT Exam: Positive: Mucous membr. moist/pink Neck Exam: Positive: Supple; Negative: thyromegaly Chest Exam: Positive: Rhonchi (minimal transmitted respiratory sounds from hypopharynx. no strodor.), Other (referred upper airway sounds BL); Negative: Wheezing, Diminished Heart Exam: Positive: Rate Normal, Regular Rhythm, Normal S1, Normal S2; Negative: Murmurs, Rubs Telemetry: Positive: No significant arrhythmia Abdomen Exam: Positive: Normal bowel sounds, Soft, Other (The G-tube site is clean and without any drainage); Negative: Tenderness, Hepatospenomegaly Extremity Exam: Positive: Edema (diffusely edematous with 2-3 mm pitting edema of BLE, trace on BUE.) Skin Exam: Positive: Nl turgor and temperature Neuro Exam: Positive: Other (engages eye contact. no speech today.) Assessment /Plan Problems (1) Oropharyngeal dysphagia Status: Chronic Problem Text: 11/18/18: The PEG is functioning well. I stopped the TPN today, bu t the PICC is still in place. 11/17/18: PEG Tube placement today. [facility] staff were specifically aware of potential increased risk for aspiration related to starting feeding following tube placement. 11/16/18: PEG tube placement tomorrow 11/15/18: We await discussions with [facility], PUBLIC HEALTH TECHNOLOGIST vs Peg tube placement 11/14/18: We await discussions with [facility] and surgeon input regarding tube placement 11/13: although gag was demonstrated to be present on 11/05, he has pooling and not able to actively swallow. Dr. Fletcher contacted again about feeding tube since his pulmonary function seems stable. 11/09 NPO, receiving PPN until PEG can be placed, pt appears to be recurrently aspirating oral secretions, therefore PEG is not really going to change his aspiration risk will just assure a nutritional source. 11/08/18: Patient has failed swallow eval. He remains NPO. Currently receiving TPN, surgery consulted for PEG 11/05: gag is visualized today on exam but also has large retropharyngeal salivary pool indicating decreased clearing. 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 There is chronic microvascular disease. 2. No acute intracranial lesion or injury. 1. Probable small, less than 2 mm on the left and left and 1 mm on the right, bilateral posterior communicating artery infundibula. No definite aneurysm. 2. No intracranial stenosis or occlusion. 10/19/18 TTE: 1. Normal left ventricle internal dimensions and wall thickness. Normal regional LV wall motion and wall thickening. Normal LV systolic function. G rade 1 LV diastolic dysfunction. 2. Otherwise normal echocardiogram Doppler findings. (2) Peripheral edema Status: Acute Problem Text: 11/18/18: I anticipate this will improve as his nutrition improves. 11/17/18: Continue with current regimen 11/16/18: Continue with current Lasix, administer 25% albumin infusion to try to improve tissue quality. PICC insertion today 11/15/18: Most likely third spacing secondary to his low albumin. We will start IV Lasix 20 mg daily and monitor. We will hopefully have a decision today regard ing what direction we are going in term of nutritional support, PUBLIC HEALTH TECHNOLOGIST vs Tube feed (3) Developmental disability Status: Chronic Response to Treatment: Stable Problem Text: no HCP/legal guardian decisions care per [facility] as of now, FULL CODE status (4) CKD (chronic kidney disease), stage III Status: Chronic Problem Text: 11/01/18: Cr. stable at 1.2 Cr 1.6, baseline 1.0-1.2. IVF ordered for fluid [id number] NS at 100 cc per hour. (5) Schizophrenia Status: Chronic Problem Text: c ho severe agitation 10/30 given NPO status, DVP changed to IV. traz 50 QHS, ris 3 BID, quet 200 QHS on hold c tory 0.5 q6 IV prn and + halo 0.5 IV q6H (hold for sedation) (6) GERD (gastroesophageal reflux disease) Status: Chronic Problem Text: IV Protonix (7) IFG (impaired fasting glucose) Status: Chronic Problem Specific Plan: Monitor Clinically, Repeat Labs Problem Text: [id number] 6.0 09/2018 (8) Aspiration pneumonia Status: Resolved Problem Text: 11/15/18: Abx stopped yesterday. WBC 11.6 today. Patient remains an aspiration risk. Currently NPO with TPN 11/14/18: WBC down to 10.3. Tmax 100.1. Repeat chest x-ray negative for infiltrates. Continue with Zoysn Day #16 11/13: WBC and temp bounced up again overnight. Zosyn continues. Will repeat CXR. 11/10 Tmax 100.1, WBC down slightly at 14. Zosyn D11. 11/09 T max 100.9, WBC increased from 14.8 to 16.5, Zosyn D10, pt is likely recurrently aspirating, exam has revealed pool of oral secretions in post pha rynx. [facility] has recinded their agreement for DNR, DNI stating pt doesn't meet criteria. Unfortunately the pt won't be able to live on IV antibiotics to treat his recurrent aspiration of oral secretions and this creates quite a challenging situation, will address further with attending. 11/08 - Zosyn D#9 - WBC trending down, but continues to spike temps - Tmax 101.6 last pm F/U CXR 11/07 - negative 11/07/18: Day #8 Zoysn. WBC 18.4. T-Max 100.4. CXR negative. BC negative 11/06 Zosyn D7. Tmax 100.7 cont to monitor. 11/05/ will check CXR in am to see if he has any clearing. D6 antibiotics. sufficiently stable to transfer to floor with cont. O2 monitoring D5 pip/lizeth remains NPO/asp precautions 11/02/18: WBC continues to improve along with clinical presentation. continue to wean off of oxygen needs. Continue CPT and suctioning. 11/01/18: WBC improved at 17,000. 10/29 CT chest: 1. Airspace consolidations in the bilateral dependent lower lobes significantly larger on the right. 2. Aspirated material in the bronchus intermedius and right lower lobe bronchus. (9) Acute respiratory failure with hypoxia Status: Resolved Response to Treatment: Progressing Problem Text: 11/16/18: Stable 11/15/18: He continues to pool secretions. Meeting today to discuss long plan of care with feeding tube 11/14/18: Stable. He continues to have pooled secretions 11/13: respiratory status stable. he has secretions that pool in hypopharynx posing ongoing aspiration risk and trigger temp increases likely related to microaspiration. 11/10 Resp status stable, 11/09 Await PEG placement, will cont with PPN until PEG placed. Resp status stable with room air O2. 11/08/18 - Add Scapolamine patch per ST. Plan PEG (Dr. Fletcher Consulted) 11/07/18: Repeat CXR:No acute disease. He does require suctioning. [facility] and [facility] do not support DNR/DNI as they feel patient does not meet criteria. They want to move forward with PEG tube placement. 11/06, Tmas 100.7 this morning, repeat CXR pending, pt cont to demonstrate difficulty managing secretions therefore aspiration risk remains high, this risk will cont and possibly increase with placement of J tube. Will cont to work with [facility] to obtain completed MOLST prior to tube placement. 11/04: need approved checklist to issue DNR order to proceed with feeding tube placement. 11/03 checklist signed by [facility] rep (Dr. Salazar), but [facility] did not like "wording"; therefore, attempting to determine what [facility] needs to state 11/02 checklist requesting DNR/DNI completed for [facility] to approve, then for Dr. Salazar to sign. Apparently [facility] has approved PEG placement, but would favor DNR/DNI in place BEFOREHAND, given ho COMPLETE HEART BLOCK with previous colono scopy. 10/31/18 increasing O2 requirement, now at HF 95% at 40L to maintain SaO2>94%; lane dw [facility] Director that as patient's PCP for 15 years, would recommend DNR/DNI status-MOLST completed accordingly and gave to [facility] guest relations representative at bedside. Mr. Wynne stated that he would "expedite" the process, but that "nothing would happen tonight". He would present the case to the [facility] and [facility] Board in AM, then would need concurring and Dr. Salazar to sign off. continue alb 2.5/3% Na q6H 10/31/18 1800 ABG 7.49/62/33/92% (10) Hypernatremia Status: Resolved Problem Text: 11/07/18: Remains WNL. We will continue to monitor 11/06 resolved, NA 141, cont to monitor. 11/05 sodium corrected overnight with D5W, will stop this supplemental fluid for now. 11/04: Still High, will d/c current IV fluid, change to D5W at 60, continue parenteral nutrition baseline NA low 140s c HILARY I 11/03 153 + PPN to IVF 10/31 153; therefore, increased to 120H-favor increased insensible loss c persistent free H20 deficit 10/30 150 (150) favor 2 dehydration; therefore, 03/01 NS 80H Plan/VTE VTE Prophylaxis Ordered?: Yes Plan Therapy: PT, OT VS, I&O, 24H, Fishbone Vital Signs/I&O Vital Signs Date Time Temp Pulse Resp B/P (MAP) Pulse Ox O2 Delivery O2 Flow Rate FiO2 11/18/18 06:00 97.9 91 20 143/73 (96) 98 2.0 11/12/18 23:09 Room Air I&O- Last 24 Hours up to 6 AM 11/18/18 06:00 Intake Total 970 ml Output Total 1500 ml Balance -530 ml Laboratory Data 24H LABS Laboratory Tests 2 11/17/18 17:22: Bedside Glucose (Misc Panel) 82 11/17/18 23:36: Bedside Glucose (Misc Panel) 96 11/18/18 05:30: Bedside Glucose (Misc Panel) 98 11/18/18 06:16: Immature Granulocyte % (Auto) , Nucleated Red Blood Cells % (auto) 0.0, Neutrophils 78H, Band Neutrophils 3, Lymphocytes (Manual) 11L, Monocytes (Manual) 1, Eosinophils (Manual) 4H, Basophils (Manual) 1, Myelocytes 1H, Atypical Lymphocytes 1, Platelet Estimate NORMAL, Anisocytosis 1+, Anion Gap 9, Glomerular Filtration Rate > 60.0, Blood Urea Nitrogen 20H, Creatinine 0.71, Sodium Level 136, Potassium Level 4.7, Chloride Level 101, Carbon Dioxide Level 26, Calcium Level 7.7L, Aspartate Amino Transf (AST/SGOT) 26, Alanine Aminotransferase (ALT/SGPT) 12, Alkaline Phosphatase 53, Total Bilirubin 0.5, Total Protein 5.6L, Albumin 1.1#L, Albumin/Globulin Ratio 0.24L 11/18/18 12:11: Bedside Glucose (Misc Panel) 98 CBC/BMP Laboratory Tests 11/18/18 06:16 Red Blood Count 3.02 L, Mean Corpuscular Volume 91.7, Mean Corpuscular Hemoglobin 30.1, Mean Corpuscular Hemoglobin Concent 32.9, Red Cell Distribution Width 14.4, Calcium Level 7.7 L, Aspartate Amino Transf (AST/SGOT) 26, Alanine Aminotransferase (ALT/SGPT) 12, Alkaline Phosphatase 53, Total Bilirubin 0.5, To francesco Protein 5.6 L, Albumin 1.1 #L Jono Davis MD Nov 18, 2018 13:23
[2018-11-18 14:38] VITALS: BP 102/58
[2018-11-18] MEDS: PANTOPRAZOLE 40MG INJ (PROTONIX) (C9113) IV SCH (21:29)
[2018-11-18] MEDS: VALPROATE SOD INJ 250 MG in D5W 50 ML IV SCH (21:29)
[2018-11-18 22:00] VITALS: BP 126/72
[2018-11-19] MEDS: SODIUM CHLORIDE HYPERTONIC 3% 15ML NEB SOL INH SCH ×4 (03:26→20:30)
[2018-11-19] MEDS: ALBUTEROL SULFATE 2.5 MG/0.5 ML INH NEB SOLN NEB SCH ×4 (03:26→20:30)
[2018-11-19 06:00] VITALS: BP_SYST 124; BP_SYST 162; BP_DIAS 70; BP_DIAS 76
[2018-11-19] MEDS: SLF 3 ML SYR IV SCH ×3 (06:25→22:59)
[2018-11-19] MEDS: SODIUM CHLORIDE 0.9% INJ 10 ML SYR IV SCH ×2 (06:26→13:42)
[2018-11-19] MEDS: HALOPERIDOL 5 MG/ML VIAL (J1630) IV SCH ×3 (06:26→22:58)
[2018-11-19 07:04] LABS: HEMATOCRIT 25.6 % (42.0-52.0); HEMOGLOBIN 8.2 g/dl (13.5-17.5); MEAN CORPUSCULAR HEMOGLOBIN 29.4 pg (27.0-33.0); MEAN CORPUSCULAR VOLUME 91.8 fl (80.0-96.0); PLATELET COUNT, AUTOMATED 241 10^3/uL (150-450); RED BLOOD COUNT 2.79 10^6/uL (4.30-6.10); WHITE BLOOD COUNT 10.3 10^3/uL (4.0-10.0)
[2018-11-19 07:20] LABS: ALT/SGPT 11 U/L (12-78); BILIRUBIN,TOTAL 0.5 MG/DL (0.2-1.0); BLOOD UREA NITROGEN 20 MG/DL (7-18); CALCIUM LEVEL 7.8 MG/DL (8.8-10.2); CARBON DIOXIDE LEVEL 27 MEQ/L (21-32); CHLORIDE LEVEL 102 MEQ/L (98-107); CREATININE FOR GFR 0.77 MG/DL (0.70-1.30); GLOMERULAR FILTRATION RATE > 60.0 (>49); GLUCOSE, FASTING 99 MG/DL (70-100); POTASSIUM SERUM 4.6 MEQ/L (3.5-5.1); SODIUM LEVEL 136 MEQ/L (136-145); TOTAL PROTEIN 5.6 GM/DL (6.4-8.2)
[2018-11-19 07:47] LABS: ANISOCYTOSIS 1+; ATYPICAL LYMPH 1 % (0-5); EOSINOPHILS 2 % (0-3); HYPOCHROMASIA 1+; LYMPHOCYTES 6 % (16-44); MICROCYTOSIS 1+; MONOCYTES 8 % (0-5); MYELOCYTES 2 % (0-0); NEUTROPHILS 77 % (28-66); PLATELET ESTIMATE NORMAL (NORMAL)
[2018-11-19] MEDS: FUROSEMIDE 20 MG/2 ML VIAL (J1940) IV SCH (09:21)
[2018-11-19] MEDS: VALPROATE SOD INJ 500 MG in D5W 50 ML IV SCH (09:21)
[2018-11-19] MEDS: HEPARIN SOD (PORCINE) 5000 UNITS/ML VIAL SC SCH ×2 (09:21→22:58)
[2018-11-19 14:30] VITALS: BP 125/75
--- NOTE | 2018-11-19 16:03 | IPNPDOC ---
Subjective Date Seen The patient was seen on 11/19/18. Subjective Chief Complaint/HPI Nursing reports that Joel did well overnight. His tube feeds were increased from 25 mL an hour to 50 mL an hour continuous. He seems to be tolerating this as well. General: Reports: ROS Unobtainable Objective Physical Examination General Exam: Positive: Alert, No Acute Distress Eye Exam: Positive: Ptosis (right eyelid); Negative: Sclera icteric ENT Exam: Positive: Mucous membr. moist/pink Neck Exam: Positive: Supple; Negative: thyromegaly Chest Exam: Positive: Clear to auscultation, Other (referred upper airway sounds BL); Negative: Wheezing, Diminished Heart Exam: Positive: Rate Normal, Regular Rhythm, Normal S1, Normal S2; Negative: Murmurs, Rubs Abdomen Exam: Positive: Normal bowel sounds, Soft, Other (The G-tube site is clean and without any drainage); Negative: Tenderness, Hepatospenomegaly Extremity Exam: Positive: Edema (diffusely edematous with 1 mm pitting edema of BLE mostly around the malleoli) Skin Exam: Positive: Nl turgor and temperature Neuro Exam: Positive: Other (engages eye contact. no speech today. More purposeful hand movements than yesterday.) Assessment /Plan Problems (1) Oropharyngeal dysphagia Status: Chronic Problem Text: 11/19/18: His PEG continues to function well. I've requested and dietitian consult to clarify his goals for G-tube feeding. I believe he is nearing discharge, including possibly tomorrow. 11/18/18: The PEG is functioning well. I stopped the TPN today, but the PICC is still in place. 11/17/18: PEG Tube placement today. [facility] staff were specifically aware of potential increased risk for aspiration related to starting feeding following tube placement. 11/16/18: PEG tube placement tomorrow 11/15/18: We await discussions with [facility], PROMOTIONAL MODEL vs Peg tube placement 11/14/18: We await discussions with [facility] and surgeon input regarding tube placement 11/13: although gag was demonstrated to be present on 11/05, he has pooling and not able to actively swallow. Dr. Fletcher contacted again about feeding tube since his pulmonary function seems stable. 11/09 NPO, receiving PPN until PEG can be placed, pt appears to be recurrently aspirating oral secretions, therefore PEG is not really going to change his aspiration risk will just assure a nutritional source. 11/08/18: Patient has failed swallow eval. He remains NPO. Currently receiving TPN, surgery consulted for PEG 11/05: gag is visualized today on exam but also has large retropharyngeal salivary pool indicating decreased clearing. 11/03/18 + PPN SENIOR TAX ANALYST on pureed/nectar currently no gag reflex plan bedside eval if improves 10/19- admission for R facial droop-obvious concern for TIA, now c CVA- patient remains too unstable for neuro-imaging 09/2018 - Lyme 10/31/18 iniguez for other causes of dysphagia (not cw GBS) 10/20/18 MRI/MRA brain: 1. There is chronic microvascular disease. 2. No acute intracranial lesion or injury. 1. Probable small, less than 2 mm on the left and left and 1 mm on the right, bilateral posterior communicating artery infundibula. No definite aneurysm. 2. No intracranial stenosis or occlusion. 10/19/18 TTE: 1. Normal left ventricle internal dimensions and wall thickness. Normal regional LV wall motion and wall thickening. Normal LV systolic function. Grade 1 LV diastolic dysfunction. 2. Otherwise normal echocardiogram Doppler findings. (2) Severe protein-calorie malnutrition Problem Specific Plan: Consult Specialist, Monitor Clinically Problem Text: I ordered labs and requested dietary consult for tomorrow. I believe once we have him on the right diet his nutritional status will improve. (3) Peripheral edema Status: Acute Problem Text: I anticipate this will improve as his nutrition improves. 11/17/18: Continue with current regimen 11/16/18: Continue with current Lasix, administer 25% albumin infusion to try to improve tissue quality. PICC insertion today 11/15/18: Most likely third spacing secondary to his low albumin. We will start IV Lasix 20 mg daily and monitor. We will hopefully have a decision today regarding what direction we are going in term of nutritional support, PROMOTIONAL MODEL vs Tube feed (4) Developmental disability Status: Chronic Response to Treatment: Stable Problem Text: no HCP/legal guardian decisions care per [facility] as of now, FULL CODE status (5) CKD (chronic kidney disease), stage III Status: Chronic Problem Text: 11/01/18: Cr. stable at 1.2 Cr 1.6, baseline 1.0-1.2. IVF ordered for fluid [id number] NS at 100 cc per hour. (6) Schizophrenia Status: Chronic Problem Text: c ho severe agitation 10/30 given NPO status, DVP changed to IV. traz 50 QHS, ris 3 BID, quet 200 QHS on hold c tory 0.5 q6 IV prn and + halo 0.5 IV q6H (hold for sedation) (7) GERD (gastroesophageal reflux disease) Status: Chronic Problem Text: IV Protonix (8) IFG (impaired fasting glucose) Status: Chronic Problem Specific Plan: Monitor Clinically, Repeat Labs Problem Text: hgba1c 6.0 09/2018 (9) Aspiration pneumonia Status: Resolved Problem Text: 11/15/18: Abx stopped yesterday. WBC 11.6 today. Patient remains an aspiration risk. Currently NPO with TPN 11/14/18: WBC down to 10.3. Tmax 100.1. Repeat chest x-ray negative for infiltrates. Continue with Zoysn Day #16 11/13: WBC and temp bounced up again overnight. Zosyn continues. Will repeat CXR. 11/10 Tmax 100.1, WBC down slightly at 14. Zosyn D11. 11/09 T max 100.9, WBC increased from 14.8 to 16.5, Zosyn D10, pt is likely recurrently aspirating, exam has revealed pool of oral secretions in post pharynx. [facility] has recinded their agreement for DNR, DNI stating pt doesn't meet criteria. Unfortunately the pt won't be able to live on IV antibiotics to treat his recurrent aspiration of oral secretions and this creates quite a challenging situation, will address further with attending. 11/08 - Zosyn D#9 - WBC trending down, but continues to spike temps - Tmax 101.6 last pm F/U CXR 11/07 - negative 11/07/18: Day #8 Zoysn. WBC 18.4. T-Max 100.4. CXR negative. BC negative 11/06 Zosyn D7. Tmax 100.7 cont to monitor. 11/05/ will check CXR in am to see if he has any clearing. D6 antibiotics. sufficiently stable to transfer to floor with cont. O2 monitoring D5 pip/lizeth remains NPO/asp precautions 11/02/18: WBC continues to improve along with clinical presentation. continue to wean off of oxygen needs. Continue CPT and suctioning. 11/01/18: WBC improved at 17,000. 10/29 CT chest: 1. Airspace consolidations in the bilateral dependent lower lobes significantly larger on the right. 2. Aspirated material in the bronchus intermedius and right lower lobe bronchus. (10) Acute respiratory failure with hypoxia Status: Resolved Problem Specific Plan: Monitor Clinically Problem Text: 11/16/18: Stable 11/15/18: He continues to pool secretions. Meeting today to discuss long plan of care with feeding tube 11/14/18: Stable. He continues to have pooled secretions 11/13: respiratory status stable. he has secretions that pool in hypopharynx p osing ongoing aspiration risk and trigger temp increases likely related to microaspiration. 11/10 Resp status stable, 11/09 Await PEG placement, will cont with PPN until PEG placed. Resp status stab le with room air O2. 11/08/18 - Add Scapolamine patch per ST. Plan PEG (Dr. Fletcher Consulted) 11/07/18: Repeat CXR:No acute disease. He does require suctioning. [facility] and [facility] do not support DNR/DNI as they feel patient does not meet criteria. They want to move forward with PEG tube placement. 11/06, Tmas 100.7 this morning, repeat CXR pending, pt cont to demonstrate difficulty managing secretions therefore aspiration risk remains high, this risk will cont and possibly increase with placement of J tube. Will cont to work with [facility] to obtain completed MOLST prior to tube placement. 11/04: need approved checklist to issue DNR order to proceed with feeding tube placement. 11/03 checklist signed by [facility] rep (Dr. Salazar), but [facility] did not like "wording"; therefore, attempting to determine what verbiage needs to state 11/02 checklist requesting DNR/DNI completed for [facility] to approve, then for Dr. Salazar to sign. Apparently [facility] has approved PEG placement, but would favor DNR/DNI in place BEFOREHAND, given ho COMPLETE HEART BLOCK with previous colonoscopy. 10/31/18 increasing O2 requirement, now at HF 95% at 40L to maintain SaO2>94%; lane whaley [facility] Director that as patient's PCP for 15 years, would recommend DNR/DNI status-MOLST completed accordingly and gave to [facility] uniforms sales representative at bedside. Mr. Wynne stated that he would "expedite" the process, but that "nothing would happen tonight". He would present the case to the [facility] and [facility] Board in AM, then would need concurring and Dr. Salazar to sign off. continue alb 2.5/3% Na q6H 10/31/18 1800 ABG 7.49/62/33/92% (11) Hypernatremia Status: Resolved Problem Text: 11/07/18: Remains WNL. We will continue to monitor 11/06 resolved, NA 141, cont to monitor. 11/05 sodium corrected overnight with D5W, will stop this supplemental fluid for now. 11/04: Still High, will d/c current IV fluid, change to D5W at 60, continue parenteral nutrition baseline NA low 140s c HILARY I 11/03 153 + PPN to IVF 10/31 153; therefore, increased to 120H-favor increased insensible loss c persistent free H20 deficit 10/30 150 (150) favor 2 dehydration; therefore, 1/ NS 80H Plan/VTE VTE Prophylaxis Ordered?: Yes Plan Therapy: PT, OT Anticipated Discharge: Home ([facility] reportedly has a bed waiting for him in the facility able to meet his care needs.) VS, I&O, 24H, Fishbone Vital Signs/I&O Vital Signs Date Time Temp Pulse Resp B/P (MAP) Pulse Ox O2 Delivery O2 Flow Rate FiO2 11/19/18 06:00 98.4 92 20 124/70 (88) 95 2.0 I&O- Last 24 Hours up to 6 AM 11/19/18 06:00 Intake Total 1095 ml Output Total 1800 ml Balance -705 ml Laboratory Data 24H LABS Laboratory Tests 2 11/18/18 17:07: Bedside Glucose (Misc Panel) 98 11/19/18 00:03: Bedside Glucose (Misc Panel) 100 11/19/18 05:34: Bedside Glucose (Misc Panel) 104 11/19/18 06:45: Immature Granulocyte % (Auto) , Nucleated Red Blood Cells % (auto) 0.0, Neutrophils 77H, Band Neutrophils 4, Lymphocytes (Manual) 6L, Monocytes (Manual) 8H, Eosinophils (Manual) 2, Myelocytes 2H, Atypical Lymphocytes 1, Platelet Estimate NORMAL, Hypochromasia 1+, Anisocytosis 1+, Microcytosis 1+, Anion Gap 7L, Glomerular Filtration Rate > 60.0, Blood Urea Nitrogen 20H, Creatinine 0.77, Sodium Level 136, Potassium Level 4.6, Chloride Level 102, Carbon Dioxide Level 27, Calcium Level 7.8L, Aspartate Amino Transf (AST/SGOT) 24, Alanine Aminotransferase (ALT/SGPT) 11L, Alkaline Phosphatase 59, Total Bilirubin 0.5, Total Protein 5.6L, Albumin 1.0L, Albumin/Globulin Ratio 0.22L CBC/BMP Laboratory Tests 11/19/18 06:45 Red Blood Count 2.79 L, Mean Corpuscular Volume 91.8, Mean Corpuscular Hemoglobin 29.4, Mean Corpuscular Hemoglobin Concent 32.0, Red Cell Distribution Width 14.3, Calcium Level 7.8 L, Aspartate Amino Transf (AST/SGOT) 24, Alanine Aminotransferase (ALT/SGPT) 11 L, Alkaline Phosphatase 59, Total Bilirubin 0.5, Total Protein 5.6 L, Albumin 1.0 L Jono Davis MD Nov 19, 2018 4:03 pm
--- NOTE | 2018-11-19 21:09 | IPN ---
DATE: 11/18/2018 The patient is status post Peg tube placement and overall has done well with this. He tolerated his tube feeds that were started earlier today and has remained afebrile. White count is down today. And his drain site is clean and dry without any erythema, drainage or discharge. IMPRESSION AND PLAN: The patient is tolerating tube feeds at a low dose. Will have them slowly increased and probably increase it to his regular 50 mL an hour with some flushes and nutrition can make some recommendations for final dosages etc.
[2018-11-19 22:00] VITALS: BP_SYST 128; BP_SYST 141; BP_DIAS 68
[2018-11-19] MEDS: VALPROATE SOD INJ 250 MG in D5W 50 ML IV SCH (22:59)
[2018-11-19] MEDS: PANTOPRAZOLE 40MG INJ (PROTONIX) (C9113) IV SCH (22:59)
[2018-11-20] MEDS: ALBUTEROL SULFATE 2.5 MG/0.5 ML INH NEB SOLN NEB SCH ×4 (02:00→20:05)
[2018-11-20] MEDS: SODIUM CHLORIDE HYPERTONIC 3% 15ML NEB SOL INH SCH ×4 (02:00→20:05)
[2018-11-20 06:00] VITALS: BP 123/66
[2018-11-20] MEDS: SLF 3 ML SYR IV SCH ×3 (06:00→22:01)
[2018-11-20 06:07] LABS: HEMATOCRIT 23.7 % (42.0-52.0); HEMOGLOBIN 7.6 g/dl (13.5-17.5); MEAN CORPUSCULAR HGB CONC 32.1 g/dl (32.0-36.5); MEAN CORPUSCULAR VOLUME 90.5 fl (80.0-96.0); PLATELET COUNT, AUTOMATED 268 10^3/uL (150-450); RED BLOOD COUNT 2.62 10^6/uL (4.30-6.10); WHITE BLOOD COUNT 11.2 10^3/uL (4.0-10.0)
[2018-11-20] MEDS: SODIUM CHLORIDE 0.9% INJ 10 ML SYR IV SCH ×2 (06:13→18:09)
[2018-11-20] MEDS: HALOPERIDOL 5 MG/ML VIAL (J1630) IV SCH ×3 (06:13→22:48)
[2018-11-20 06:32] LABS: ALT/SGPT 18 U/L (12-78); BILIRUBIN,TOTAL 0.7 MG/DL (0.2-1.0); BLOOD UREA NITROGEN 29 MG/DL (7-18); CALCIUM LEVEL 7.2 MG/DL (8.8-10.2); CARBON DIOXIDE LEVEL 29 MEQ/L (21-32); CHLORIDE LEVEL 101 MEQ/L (98-107); CHOLESTEROL LEVEL 70 MG/DL (< 200); CREATININE FOR GFR 0.84 MG/DL (0.70-1.30); GLOMERULAR FILTRATION RATE > 60.0 (>49); GLUCOSE, FASTING 122 MG/DL (70-100); MAGNESIUM LEVEL 1.8 MG/DL (1.8-2.4); POTASSIUM SERUM 4.7 MEQ/L (3.5-5.1); PREALBUMIN 7.7 MG/DL (20.0-40.0); SODIUM LEVEL 137 MEQ/L (136-145); TOTAL PROTEIN 5.4 GM/DL (6.4-8.2)
[2018-11-20] MEDS: HEPARIN SOD (PORCINE) 5000 UNITS/ML VIAL SC SCH ×2 (09:38→21:54)
[2018-11-20] MEDS: VALPROATE SOD INJ 500 MG in D5W 50 ML IV SCH (09:38)
[2018-11-20] MEDS: SCOPOLAMINE 1MG TRANSDERMAL PATCH TOP SCH (09:39)
[2018-11-20] MEDS: FUROSEMIDE 20 MG/2 ML VIAL (J1940) IV SCH (09:39)
--- NOTE | 2018-11-20 10:52 | IPNPDOC ---
Subjective Date Seen The patient was seen on 11/20/18. Subjective Chief Complaint/HPI aspiration pneumonia General: Reports: ROS Unobtainable Objective Physical Examination General Exam: Positive: Alert, No Acute Distress Eye Exam: Positive: Ptosis (right eyelid); Negative: Sclera icteric ENT Exam: Positive: Mucous membr. moist/pink Neck Exam: Positive: Supple; Negative: thyromegaly Chest Exam: Positive: Clear to auscultation, Other (referred upper airway sounds BL); Negative: Wheezing, Diminished Heart Exam: Positive: Rate Normal, Regular Rhythm, Normal S1, Normal S2; Negative: Murmurs, Rubs Abdomen Exam: Positive: Normal bowel sounds, Soft, Other (The G-tube site is clean and without any drainage); Negative: Tenderness, Hepatospenomegaly Extremity Exam: Positive: Edema (diffusely edematous with 1 mm pitting edema of BLE mostly around the malleoli) Skin Exam: Positive: Nl turgor and temperature Neuro Exam: Positive: Other (engages eye contact. no speech today. More purposeful hand movements than yesterday.) Assessment /Plan Problems (1) Oropharyngeal dysphagia Status: Chronic Problem Text: 11/20/18 changed TF to Nepro 1 can 4x QD c FW 200 q4H as per dietary recommendations 11/17/18: PEG Tube placement today. [facility] staff were specifically aware of potential increased risk for aspiration related to starting feeding following tube placement. 11/16/18: PEG tube placement tomorrow 11/15/18: We await discussions with [facility], PLASTER PATTERNMAKER vs Peg tube placement 11/14/18: We await discussions with [facility] and surgeon input regarding tube placement 11/13: although gag was demonstrated to be present on 11/05, he has pooling and not able to actively swallow. Dr. Fletcher contacted again about feeding tube since his pulmonary function seems stable. 11/09 NPO, receiving PPN until PEG can be placed, pt appears to be recurrently aspirating oral secretions, therefore PEG is not really going to change his aspiration risk will just assure a nutritional source. 11/08/18: Patient has failed swallow eval. He remains NPO. Currently receiving TPN, surgery consulted for PEG 11/05: gag is visualized today on exam but also has large retropharyngeal salivary pool indicating decreased clearing. 11/03/18 + PPN COLOR BLENDER on pureed/nectar currently no gag reflex plan bedside eval if improves 10/19- admission for R facial droop-obvious concern for TIA, now c CVA-pa tient remains too unstable for neuro-imaging 09/2018 - Lyme 10/31/18 iniguez for other causes of dysphagia (not cw GBS) 10/20/18 MRI/MRA brain: 1. There is chronic microvascular disease. 2. No acute intracranial lesion or injury. 1. Probable small, less than 2 mm on the left and left and 1 mm on the right, bilateral posterior communicating artery infundibula. No definite aneurysm. 2. No intracranial stenosis or occlusion. 10/19/18 TTE: 1. Normal left ventricle internal dimensions and wall thickness. Normal regional LV wall motion and wall thickening. Normal LV systolic function. Gra de 1 LV diastolic dysfunction. 2. Otherwise normal echocardiogram Doppler findings. (2) Severe protein-calorie malnutrition Problem Specific Plan: Consult Specialist, Monitor Clinically Problem Text: I ordered labs and requested dietary consult for tomorrow. I believe once we have him on the right diet his nutritional status will improve. (3) Peripheral edema Status: Acute Problem Text: I anticipate this will improve as his nutrition improves. 11/17/18: Continue with current regimen 11/16/18: Continue with current Lasix, administer 25% albumin infusion to try to improve tissue quality. PICC insertion today 11/15/18: Most likely third spacing secondary to his low albumin. We will start IV Lasix 20 mg daily and monitor. We will hopefully have a decision today regarding what direction we are going in term of nutritional support, PLASTER PATTERNMAKER vs Tube feed (4) Developmental disability Status: Chronic Response to Treatment: Stable Problem Text: no HCP/legal guardian decisions care per [facility] as of now, FULL CODE status (5) CKD (chronic kidney disease), stage III Status: Chronic Problem Text: 11/01/18: Cr. stable at 1.2 Cr 1.6, baseline 1.0-1.2. IVF ordered for fluid [id number] NS at 100 cc per hour. (6) Schizophrenia Status: Chronic Problem Text: c ho severe agitation 10/30 given NPO status, DVP changed to IV. traz 50 QHS, ris 3 BID, quet 200 QHS on hold c tory 0.5 q6 IV prn and + halo 0.5 IV q6H (hold for sedation) (7) GERD (gastroesophageal reflux disease) Status: Chronic Problem Text: IV Protonix (8) IFG (impaired fasting glucose) Status: Chronic Problem Specific Plan: Monitor Clinically, Repeat Labs Problem Text: hgba1c 6.0 09/2018 (9) Aspiration pneumonia Status: Resolved Problem Text: 11/15/18: Abx stopped yesterday. WBC 11.6 today. Patient remains an aspiration risk. Currently NPO with TPN 11/14/18: WBC down to 10.3. Tmax 100.1. Repeat chest x-ray negative for infiltrates. Continue with Zoysn Day #16 11/13: WBC and temp bounced up again overnight. Zosyn continues. Will repeat CXR. 11/10 Tmax 100.1, WBC down slightly at 14. Zosyn D11. 11/09 T max 100.9, WBC increased from 14.8 to 16.5, Zosyn D10, pt is likely recurrently aspirating, exam has revealed pool of oral secretions in post pharynx. [facility] has recinded their agreement for DNR, DNI stating pt doesn't meet criteria. Unfortunately the pt won't be able to live on IV antibiotics to treat his recurrent aspiration of oral secretions and this creates quite a challenging situation, will address further with attending. 11/08 - Zosyn D#9 - WBC trending down, but continues to spike temps - Tmax 101.6 last pm F/U CXR 11/07 - negative 11/07/18: Day #8 Zoysn. WBC 18.4. T-Max 100.4. CXR negative. BC negative 11/06 Zosyn D7. Tmax 100.7 cont to monitor. 11/05/ will check CXR in am to see if he has any clearing. D6 antibiotics. sufficiently stable to transfer to floor with cont. O2 monitoring D5 pip/lizeth remains NPO/asp precautions 11/02/18: WBC continues to improve along with clinical presentation. continue to wean off of oxygen needs. Continue CPT and suctioning. 11/01/18: WBC improved at 17,000. 10/29 CT chest: 1. Airspace consolidations in the bilateral dependent lower lobes significantly larger on the right. 2. Aspirated material in the bronchus intermedius and right lower lobe bronchus. (10) Acute respiratory failure with hypoxia Status: Resolved Problem Specific Plan: Monitor Clinically Problem Text: 11/16/18: Stable 11/15/18: He continues to pool secretions. Meeting today to discuss long plan of care with feeding tube 11/14/18: Stable. He continues to have pooled secretions 11/13: respiratory status stable. he has secretions that pool in hypopharynx posing ongoing aspiration risk and trigger temp increases likely related to microaspiration. 11/10 Resp status stable, 11/09 Await PEG placement, will cont with PPN until PEG placed. Resp status stable with room air O2. 11/08/18 - Add Scapolamine patch per ST. Plan PEG (Dr. Fletcher Consulted) 11/07/18: Repeat CXR:No acute disease. He does require suctioning. [facility] and [facility] do not support DNR/DNI as they feel patient does not meet criteria. They want to move forward with PEG tube placement. 11/06, Tmas 100.7 this morning, repeat CXR pending, pt cont to demonstrate difficulty managing secretions therefore aspiration risk remains high, this risk will cont and possibly increase with placement of J tube. Will cont to work with [facility] to obtain completed MOLST prior to tube placement. 11/04: need approved checklist to issue DNR order to proceed with feeding tube placement. 11/03 checklist signed by [facility] rep (Dr. Salazar), but [facility] did not like "wording"; therefore, attempting to determine what [facility] needs to state 11/02 checklist requesting DNR/DNI completed for [facility] to approve, then for Dr. Salazar to sign. Apparently [facility] has approved PEG placement, but would favor DNR/DNI in place BEFOREHAND, given ho COMPLETE HEART BLOCK with previous colonoscopy. 10/31/18 increasing O2 requirement, now at HF 95% at 40L to maintain SaO2>94%; lane dw [facility] Director that as patient's PCP for 15 years, would recommend DNR/DNI status-MOLST completed accordingly and gave to [facility] sales representative raw fibers at bedside. Mr. Wynne stated that he would "expedite" the process, but that "nothing would happen tonight". He would present the case to the [facility] and [facility] Board in AM, then would need concurring and Dr. Salazar to sign off. continue alb 2.5/3% Na q6H 10/31/18 1800 ABG 7.49/62/33/92% (11) Hypernatremia Status: Resolved Problem Text: 11/07/18: Remains WNL. We will continue to monitor 11/06 resolved, NA 141, cont to monitor. 11/05 sodium corrected overnight with D5W, will stop this supplemental fluid for now. 11/04: Still High, will d/c current IV fluid, change to D5W at 60, continue parenteral nutrition baseline NA low 140s c HILARY I 11/03 153 + PPN to IVF 10/31 153; therefore, increased to 120H-favor increased insensible loss c persistent free H20 deficit 10/30 150 (150) favor 2 dehydration; therefore, 03/01 NS 80H (12) Anemia Status: Acute Problem Text: transfuse 2 units RBC. most likley secondary to malnutrition. hemoccult ordered. Plan/VTE VTE Prophylaxis Ordered?: Yes Plan Therapy: PT, OT Anticipated Discharge: Home ([facility] reportedly has a bed waiting for him in the facility able to meet his care needs.) VS, I&O, 24H, Fishbone Vital Signs/I&O Vital Signs Date Time Temp Pulse Resp B/P (MAP) Pulse Ox O2 Delivery O2 Flow Rate FiO2 11/20/18 06:00 100.0 99 20 123/66 (85) 93 11/19/18 06:00 2.0 I&O- Last 24 Hours up to 6 AM 11/20/18 06:00 Intake Total 310 ml Output Total 4000 ml Balance -3690 ml Laboratory Data 24H LABS Laboratory Tests 2 11/19/18 17:08: Bedside Glucose (Misc Panel) 105 11/20/18 00:09: Bedside Glucose (Misc Panel) 126H 11/20/18 05:27: Nucleated Red Blood Cells % (auto) 0.0, Anion Gap 7L, Glomerular Filtration Rate > 60.0, Blood Urea Nitrogen 29H, Creatinine 0.84, Sodium Level 137, Potassium Level 4.7, Chloride Level 101, Carbon Dioxide Level 29, Calcium Level 7.2L, Aspartate Amino Transf (AST/SGOT) 35, Alanine Aminotransferase (ALT/SGPT) 18, Alkaline Phosphatase 83, Total Bilirubin 0.7, Cholesterol Level 70, Total Protein 5.4L, Albumin 1.0L, Magnesium Level 1.8, Albumin/Globulin Ratio 0.23L, Prealbumin 7.7L 11/20/18 05:46: Bedside Glucose (Misc Panel) 116H CBC/BMP Laboratory Tests 11/20/18 05:27 Red Blood Count 2.62 L, Mean Corpuscular Volume 90.5, Mean Corpuscular Hemoglobin 29.0, Mean Corpuscular Hemoglobin Concent 32.1, Red Cell Distribution Width 14.2, Calcium Level 7.2 L, Aspartate Amino Transf (AST/SGOT) 35, Alanine Aminotransferase (ALT/SGPT) 18, Alkaline Phosphatase 83, Total Bilirubin 0.7, Cholesterol Level 70, Total Protein 5.4 L, Albumin 1.0 L Nuria Guzman Nov 20, 2018 10:52 Timmy Nesbitt M.D. Nov 20, 2018 18:35
[2018-11-20] MEDS: PANTOPRAZOLE 40MG INJ (PROTONIX) (C9113) IV SCH (21:53)
[2018-11-20] MEDS: VALPROATE SOD INJ 250 MG in D5W 50 ML IV SCH (21:54)
[2018-11-20] MEDS: SODIUM CHLORIDE 0.9% INJ 10 ML SYR IV PRN ×2 (22:49→23:20)
[2018-11-20 22:50] VITALS: BP 138/70
[2018-11-21] MEDS: ALBUTEROL SULFATE 2.5 MG/0.5 ML INH NEB SOLN NEB SCH ×4 (01:48→20:37)
[2018-11-21] MEDS: SODIUM CHLORIDE HYPERTONIC 3% 15ML NEB SOL INH SCH ×4 (01:48→20:37)
[2018-11-21] MEDS: HALOPERIDOL 5 MG/ML VIAL (J1630) IV SCH ×3 (05:44→22:34)
[2018-11-21] MEDS: SODIUM CHLORIDE 0.9% INJ 10 ML SYR IV SCH ×2 (05:44→18:29)
[2018-11-21] MEDS: SODIUM CHLORIDE 0.9% INJ 10 ML SYR IV PRN (05:45)
[2018-11-21] MEDS: SLF 3 ML SYR IV SCH ×3 (05:45→22:35)
[2018-11-21 06:48] VITALS: BP 133/78
[2018-11-21 06:56] LABS: HEMATOCRIT 32.1 % (42.0-52.0); MEAN CORPUSCULAR HEMOGLOBIN 28.8 pg (27.0-33.0); MEAN CORPUSCULAR VOLUME 87.2 fl (80.0-96.0); PLATELET COUNT, AUTOMATED 279 10^3/uL (150-450); RED BLOOD COUNT 3.68 10^6/uL (4.30-6.10); WHITE BLOOD COUNT 14.5 10^3/uL (4.0-10.0)
[2018-11-21 06:57] LABS: HEMOGLOBIN 10.6 g/dl (13.5-17.5)
[2018-11-21 07:22] LABS: BASOPHILS 1 % (0-1); EOSINOPHILS 6 % (0-3); LYMPHOCYTES 11 % (16-44); MONOCYTES 17 % (0-5); MYELOCYTES 1 % (0-0); NEUTROPHILS 64 % (28-66); PLATELET ESTIMATE NORMAL (NORMAL)
[2018-11-21 07:23] LABS: ANISOCYTOSIS 1+
[2018-11-21 07:34] LABS: ALBUMIN 1.1 GM/DL (3.2-5.2); ALT/SGPT 20 U/L (12-78); BILIRUBIN,TOTAL 0.6 MG/DL (0.2-1.0); BLOOD UREA NITROGEN 34 MG/DL (7-18); CALCIUM LEVEL 7.6 MG/DL (8.8-10.2); CARBON DIOXIDE LEVEL 29 MEQ/L (21-32); CHLORIDE LEVEL 99 MEQ/L (98-107); CREATININE FOR GFR 0.83 MG/DL (0.70-1.30); GLOMERULAR FILTRATION RATE > 60.0 (>49); GLUCOSE, FASTING 99 MG/DL (70-100); POTASSIUM SERUM 4.3 MEQ/L (3.5-5.1); SODIUM LEVEL 136 MEQ/L (136-145); TOTAL PROTEIN 6.7 GM/DL (6.4-8.2)
--- NOTE | 2018-11-21 08:13 | IPNPDOC ---
Subjective Date Seen The patient was seen on 11/21/18. Subjective Chief Complaint/HPI Feeding switched to Bolus Nepho - seems to be tolerating this so far without residuals Constitutional: Denies: Chills, Fever Pulmonary: Denies: Dyspnea, Cough Cardiovascular: Denies: Chest Pain, Palpitations Gastrointestinal: Denies: Nausea, Vomiting, Abdominal Pain, Diarrhea, Constipation Objective Physical Examination General Exam: Positive: Alert, No Acute Distress Eye Exam: Positive: Ptosis (right eyelid); Negative: Sclera icteric ENT Exam: Positive: Mucous membr. moist/pink Neck Exam: Positive: Supple; Negative: thyromegaly Chest Exam: Positive: Clear to auscultation, Other (referred upper airway sounds BL); Negative: Wheezing, Diminished Heart Exam: Positive: Rate Normal, Regular Rhythm, Normal S1, Normal S2; Negative: Murmurs, Rubs Abdomen Exam: Positive: Normal bowel sounds, Soft, Other (The G-tube site is clean and without any drainage); Negative: Tenderness, Hepatospenomegaly Extremity Exam: Positive: Edema (diffusely edematous with 1 mm pitting edema of BLE mostly around the malleoli) Skin Exam: Positive: Nl turgor and temperature Neuro Exam: Positive: Other (engages eye contact. no speech today. More purposeful hand movements than yesterday.) Assessment /Plan Problems (1) Oropharyngeal dysphagia Status: Chronic Problem Text: 11/21 - Tolerating change in tube feeds to Bolus -Continue Nephro 1 can 4x/day with FW 200 q4H 11/20/18 changed TF to Nepro 1 can 4x QD c FW 200 q4H as per dietary recommendations 11/17/18: PEG Tube placement today. [facility] staff were specifically aware of potential increased risk for aspiration related to starting feeding following tube placement. 11/16/18: PEG tube placement tomorrow 11/15/18: We await discussions with [facility], SERVICE DELIVERY SUPERVISOR vs Peg tube placement 11/14/18: We await discussions with [facility] and surgeon input regarding tube placement 11/13: although gag was demonstrated to be present on 11/05, he has pooling and not able to actively swallow. Dr. Fletcher contacted again about feeding tube since his pulmonary function seems stable. 11/09 NPO, receiving PPN until PEG can be placed, pt appears to be recurrently aspirating oral secretions, therefore PEG is not really going to change his aspiration risk will just assure a nutritional source. 11/08/18: Patient has failed swallow eval. He remains NPO. Currently receiving TPN, surgery consulted for PEG 11/05: gag is visualized today on exam but also has large retropharyngeal salivary pool indicating decreased clearing. 11/03/18 + PPN TRAVEL ATTENDANTS on pureed/nectar currently no gag reflex plan bedside eval if improves 10/19- admission for R facial droop-obvious concern for TIA, now c CVA-katy ent remains too unstable for neuro-imaging 09/2018 - Lyme 10/31/18 iniguez for other causes of dysphagia (not cw GBS) 10/20/18 MRI/MRA brain: 1. There is chronic microvascular disease. 2. No acute intracranial lesion or injury. 1. Probable small, less than 2 mm on the left and left and 1 mm on the right, bilateral posterior communicating artery infundibula. No definite aneurysm. 2. No intracranial stenosis or occlusion. 10/19/18 TTE: 1. Normal left ventricle internal dimensions and wall thickness. Normal regional LV wall motion and wall thickening. Normal LV systolic function. Grade 1 LV diastolic dysfunction. 2. Otherwise normal echocardiogram Doppler findings. (2) Anemia Status: Acute Response to Treatment: Improving Problem Text: s/p 2 units RBC 11/20. . most likley secondary to malnutrition. hemoccult ordered. (3) Severe protein-calorie malnutrition Problem Specific Plan: Consult Specialist, Monitor Clinically Problem Text: I ordered labs and requested dietary consult for tomorrow. I believe once we have him on the right diet his nutritional status will improve. (4) Peripheral edema Status: Acute Problem Text: I anticipate this will improve as his nutrition improves. 11/17/18: Continue with current regimen 11/16/18: Continue with current Lasix, administer 25% albumin infusion to try to improve tissue quality. PICC insertion today 11/15/18: Most likely third spacing secondary to his low albumin. We will start IV Lasix 20 mg daily and monitor. We will hopefully have a decision today regarding what direction we are going in term of nutritional support, SERVICE DELIVERY SUPERVISOR vs Tube feed (5) Developmental disability Status: Chronic Response to Treatment: Stable Problem Text: no HCP/legal guardian decisions care per [facility] as of now, FULL CODE status (6) CKD (chronic kidney disease), stage III Status: Chronic Problem Text: 11/01/18: Cr. stable at 1.2 Cr 1.6, baseline 1.0-1.2. IVF ordered for fluid [id number] NS at 100 cc per hour. (7) Schizophrenia Status: Chronic Problem Text: c ho severe agitation 10/30 given NPO status, DVP changed to IV. traz 50 QHS, ris 3 BID, quet 200 QHS on hold c tory 0.5 q6 IV prn and + halo 0.5 IV q6H (hold for sedation) (8) GERD (gastroesophageal reflux disease) Status: Chronic Problem Text: IV Protonix (9) IFG (impaired fasting glucose) Status: Chronic Problem Specific Plan: Monitor Clinically, Repeat Labs Problem Text: hgba1c 6.0 09/2018 (10) Aspiration pneumonia Status: Resolved Problem Text: 11/15/18: Abx stopped yesterday. WBC 11.6 today. Patient remains an aspiration risk. Currently NPO with TPN 11/14/18: WBC down to 10.3. Tmax 100.1. Repeat chest x-ray negative for infiltrates. Continue with Zoysn Day #16 11/13: WBC and temp bounced up again overnight. Zosyn continues. Will repeat CXR. 11/10 Tmax 100.1, WBC down slightly at 14. Zosyn D11. 11/09 T max 100.9, WBC increased from 14.8 to 16.5, Zosyn D10, pt is likely recurrently aspirating, exam has revealed pool of oral secretions in post pharynx. [facility] has recinded their agreement for DNR, DNI stating pt doesn't meet criteria. Unfortunately the pt won't be able to live on IV antibiotics to treat his recurrent aspiration of oral secretions and this creates quite a challenging situation, will address further with attending. 11/08 - Zosyn D#9 - WBC trending down, but continues to spike temps - Tmax 101.6 last pm F/U CXR 11/07 - negative 11/07/18: Day #8 Zoysn. WBC 18.4. T-Max 100.4. CXR negative. BC negative 11/06 Zosyn D7. Tmax 100.7 cont to monitor. 11/05/ will check CXR in am to see if he has any clearing. D6 antibiotics. sufficiently stable to transfer to floor with cont. O2 monitoring D5 pip/lizeth remains NPO/asp precautions 11/02/18: WBC continues to improve along with clinical presentation. continue to wean off of oxygen needs. Continue CPT and suctioning. 11/01/18: WBC improved at 17,000. 10/29 CT chest: 1. Airspace consolidations in the bilateral dependent lower lobes significantly larger on the right. 2. Aspirated material in the bronchus intermedius and right lower lobe bronchus. (11) Acute respiratory failure with hypoxia Status: Resolved Problem Specific Plan: Monitor Clinically Problem Text: 11/16/18: Stable 11/15/18: He continues to pool secretions. Meeting today to discuss long plan of care with feeding tube 11/14/18: Stable. He continues to have pooled secretions 11/13: respiratory status stable. he has secretions that pool in hypopharynx posing ongoing aspiration risk and trigger temp increases likely related to microaspiration. 11/10 Resp status stable, 11/09 Await PEG placement, will cont with PPN until PEG placed. Resp status sta ble with room air O2. 11/08/18 - Add Scapolamine patch per ST. Plan PEG (Dr. Fletcher Consulted) 11/07/18: Repeat CXR:No acute disease. He does require suctioning. C and [facility] do not support DNR/DNI as they feel patient does not meet criteria. They want to move forward with PEG tube placement. 11/06, Tmas 100.7 this morning, repeat CXR pending, pt cont to demonstrate difficulty managing secretions therefore aspiration risk remains high, this risk will cont and possibly increase with placement of J tube. Will cont to work with [facility] to obtain completed MOLST prior to tube placement. 11/04: need approved checklist to issue DNR order to proceed with feeding tube placement. 11/03 checklist signed by [facility] rep (Dr. Salazar), but [facility] did not like "wording"; therefore, attempting to determine what verbiage needs to state 11/02 checklist requesting DNR/DNI completed for [facility] to approve, then for Dr. Salazar to sign. Apparently [facility] has approved PEG placement, but would favor DNR/DNI in place BEFOREHAND, given ho COMPLETE HEART BLOCK with previous colonoscopy. 10/31/18 increasing O2 requirement, now at HF 95% at 40L to maintain SaO2>94%; lane whaley [facility] Director that as patient's PCP for 15 years, would recommend DNR/DNI status-MOLST completed accordingly and gave to [facility] uniforms sales representative at bedside. Mr. Wynne stated that he would "expedite" the process, but that "nothing would happen tonight". He would present the case to the [facility] and [facility] Board in AM, then would need concurring and Dr. Salazar to sign off. continue alb 2.5/3% Na q6H 10/31/18 1800 ABG 7.49/62/33/92% (12) Hypernatremia Status: Resolved Problem Text: 11/07/18: Remains WNL. We will continue to monitor 11/06 resolved, NA 141, cont to monitor. 11/05 sodium corrected overnight with D5W, will stop this supplemental fluid for now. 11/04: Still High, will d/c current IV fluid, change to D5W at 60, continue parenteral nutrition baseline NA low 140s c HILARY I 11/03 153 + PPN to IVF 10/31 153; therefore, increased to 120H-favor increased insensible loss c persistent free H20 deficit 10/30 150 (150) favor 2 dehydration; therefore, 03/01 NS 80H Plan/VTE VTE Prophylaxis Ordered?: Yes Plan Therapy: PT, OT Anticipated Discharge: Home ([facility] reportedly has a bed waiting for him in the facility able to meet his care needs.) Disposition Continue PT - Able to go back to [facility] once able to transfer to chair VS, I&O, 24H, Adeline Vital Signs/I&O Vital Signs Date Time Temp Pulse Resp B/P (MAP) Pulse Ox O2 Delivery O2 Flow Rate FiO2 11/21/18 06:48 97.8 97 18 133/78 (96) 91 11/19/18 06:00 2.0 I&O- Last 24 Hours up to 6 AM 11/21/18 06:00 Intake Total 347.5 ml Balance 347.5 ml Laboratory Data 24H LABS Laboratory Tests 2 11/20/18 13:10: Bedside Glucose (Misc Panel) 112 11/21/18 00:24: Bedside Glucose (Misc Panel) 99 11/21/18 06:23: Immature Granulocyte % (Auto) , Nucleated Red Blood Cells % (auto) 0.0, Neutrophils 64, Lymphocytes (Manual) 11L, Monocytes (Manual) 17H, Eosinophils (Manual) 6H, Basophils (Manual) 1, Myelocytes 1H, Platelet Estimate NORMAL, Anisocytosis 1+, Anion Gap 8, Glomerular Filtration Rate > 60.0, Blood Urea Nitrogen 34H, Creatinine 0.83, Sodium Level 136, Potassium Level 4.3, Chloride Level 99, Carbon Dioxide Level 29, Calcium Level 7.6L, Aspartate Amino Transf (AST/SGOT) 36, Alanine Aminotransferase (ALT/SGPT) 20, Alkaline Phosphatase 88, Total Bilirubin 0.6, Total Protein 6.7#, Albumin 1.1L, Albumin/Globulin Ratio 0.20L CBC/BMP Laboratory Tests 11/21/18 06:23 Red Blood Count 3.68 L, Mean Corpuscular Volume 87.2, Mean Corpuscular Hemoglobin 28.8, Mean Corpuscular Hemoglobin Concent 33.0, Red Cell Distribution Width 15.8 H, Calcium Level 7.6 L, Aspartate Amino Transf (AST/SGOT) 36, Alanine Aminotransferase (ALT/SGPT) 20, Alkaline Phosphatase 88, Total Bilirubin 0.6, Total Protein 6.7 #, Albumin 1.1 L ALLEN SEBASTIAN PA-C Nov 21, 2018 08:13
[2018-11-21] MEDS: FUROSEMIDE 20 MG/2 ML VIAL (J1940) IV SCH (09:19)
[2018-11-21] MEDS: HEPARIN SOD (PORCINE) 5000 UNITS/ML VIAL SC SCH ×2 (09:19→22:35)
[2018-11-21] MEDS: VALPROATE SOD INJ 500 MG in D5W 50 ML IV SCH (09:20)
[2018-11-21 13:20] VITALS: BP 115/63
[2018-11-21 20:35] VITALS: BP 127/65
[2018-11-21] MEDS: PANTOPRAZOLE 40MG INJ (PROTONIX) (C9113) IV SCH (22:34)
[2018-11-21] MEDS: VALPROATE SOD INJ 250 MG in D5W 50 ML IV SCH (22:35)
[2018-11-22] MEDS: ALBUTEROL SULFATE 2.5 MG/0.5 ML INH NEB SOLN NEB SCH ×4 (01:57→20:05)
[2018-11-22] MEDS: SODIUM CHLORIDE HYPERTONIC 3% 15ML NEB SOL INH SCH ×4 (01:57→20:05)
[2018-11-22 05:07] VITALS: BP 143/81
[2018-11-22] MEDS: HALOPERIDOL 5 MG/ML VIAL (J1630) IV SCH ×3 (05:29→21:54)
[2018-11-22] MEDS: SODIUM CHLORIDE 0.9% INJ 10 ML SYR IV SCH ×2 (05:31→18:44)
[2018-11-22] MEDS: SLF 3 ML SYR IV SCH ×3 (05:31→21:55)
[2018-11-22 07:20] LABS: ALBUMIN 1.1 GM/DL (3.2-5.2); ALT/SGPT 20 U/L (12-78); BILIRUBIN,TOTAL 0.7 MG/DL (0.2-1.0); BLOOD UREA NITROGEN 34 MG/DL (7-18); CALCIUM LEVEL 8.3 MG/DL (8.8-10.2); CARBON DIOXIDE LEVEL 29 MEQ/L (21-32); CHLORIDE LEVEL 99 MEQ/L (98-107); CREATININE FOR GFR 0.77 MG/DL (0.70-1.30); GLOMERULAR FILTRATION RATE > 60.0 (>49); GLUCOSE, FASTING 107 MG/DL (70-100); SODIUM LEVEL 135 MEQ/L (136-145); TOTAL PROTEIN 6.4 GM/DL (6.4-8.2)
--- NOTE | 2018-11-22 07:38 | IPNPDOC ---
Subjective Date Seen The patient was seen on 11/22/18. Subjective Chief Complaint/HPI Per nursing - had 65cc residual. Held feeding x 1 hour, residual resolved. Low grade temp overnight. WBC up today Constitutional: Reports: Fever; Denies: Chills Pulmonary: Denies: Dyspnea, Cough Cardiovascular: Denies: Chest Pain, Palpitations Gastrointestinal: Denies: Nausea, Vomiting, Abdominal Pain, Diarrhea, Constipation Objective Physical Examination General Exam: Positive: Alert, No Acute Distress Eye Exam: Positive: Ptosis (right eyelid); Negative: Sclera icteric ENT Exam: Positive: Mucous membr. moist/pink Neck Exam: Positive: Supple; Negative: thyromegaly Chest Exam: Positive: Clear to auscultation, Other (referred upper airway sounds BL); Negative: Wheezing, Diminished Heart Exam: Positive: Rate Normal, Regular Rhythm, Normal S1, Normal S2; Negative: Murmurs, Rubs Abdomen Exam: Positive: Normal bowel sounds, Soft, Other (The G-tube site is clean and without any drainage); Negative: Tenderness, Hepatospenomegaly Extremity Exam: Positive: Edema (diffusely edematous with 1 mm pitting edema of BLE mostly around the malleoli) Skin Exam: Positive: Nl turgor and temperature Neuro Exam: Positive: Other (engages eye contact. no speech today. More purposeful hand movements than yesterday.) Assessment /Plan Problems (1) Oropharyngeal dysphagia Status: Chronic Problem Text: 11/22 - Had some residual yesterday of 65 cc- recheck an hour later showed no residual. More rattling lung sounds on exam today, with low grade temp and rise in WBC. Repeat CXR this am 11/21 - Tolerating change in tube feeds to Bolus -Continue Nephro 1 can 4x/day with FW 200 q4H 11/20/18 changed TF to Nepro 1 can 4x QD c FW 200 q4H as per dietary recommendations 11/17/18: PEG Tube placement today. [facility] staff were specifically aware of potential increased risk for aspiration related to starting feeding following tube placement. 11/16/18: PEG tube placement tomorrow 11/15/18: We await discussions with [facility], BLEACH BOILER FILLER vs Peg tube placement 11/14/18: We await discussions with [facility] and surgeon input regarding tube placement 11/13: although gag was demonstrated to be present on 11/05, he has pooling and not able to actively swallow. Dr. Fletcher contacted again about feeding tube since his pulmonary function seems stable. 11/09 NPO, receiving PPN until PEG can be placed, pt appears to be recurrently aspirating oral secretions, therefore PEG is not really going to change his aspiration risk will just assure a nutritional source. 11/08/18: Patient has failed swallow eval. He remains NPO. Currently receiving TPN, surgery consulted for PEG 11/05: gag is visualized today on exam but also has large retropharyngeal salivary pool indicating decreased clearing. 11/03/18 + PPN CUSTOMER SUCCESS REPRESENTATIVE on pureed/nectar currently no gag reflex plan bedside eval if improves 10/19- admission for R facial droop-obvious concern for TIA, now c CVA- patient remains too unstable for neuro-imaging 09/2018 - Lyme 10/31/18 iniguez for other causes of dysphagia (not cw GBS) 10/20/18 MRI/MRA brain: 1. There is chronic microvascular disease. 2. No acute intracranial lesion or injury. 1. Probable small, less than 2 mm on the left and left and 1 mm on the right, bilateral posterior communicating artery infundibula. No definite aneurysm. 2. No intracranial stenosis or occlusion. 10/19/18 TTE: 1. Normal left ventricle internal dimensions and wall thickness. Normal regional LV wall motion and wall thickening. Normal LV systolic function. Grade 1 LV diastolic dysfunction. 2. Otherwise normal echocardiogram Doppler findings. (2) Anemia Status: Acute Response to Treatment: Improving Problem Text: s/p 2 units RBC 11/20. . most likley secondary to malnutrition. hemoccult ordered. (3) Severe protein-calorie malnutrition Problem Specific Plan: Consult Specialist, Monitor Clinically Problem Text: I ordered labs and requested dietary consult for tomorrow. I believe once we have him on the right diet his nutritional status will improve. (4) Peripheral edema Status: Acute Problem Text: I anticipate this will improve as his nutrition improves. 11/17/18: Continue with current regimen 11/16/18: Continue with current Lasix, administer 25% albumin infusion to try to improve tissue quality. PICC insertion today 11/15/18: Most likely third spacing secondary to his low albumin. We will start IV Lasix 20 mg daily and monitor. We will hopefully have a decision today regarding what direction we are going in term of nutritional support, BLEACH BOILER FILLER vs Tube feed (5) Developmental disability Status: Chronic Response to Treatment: Stable Problem Text: no HCP/legal guardian decisions [facility] as of now, FULL CODE status (6) CKD (chronic kidney disease), stage III Status: Chronic Problem Text: 11/01/18: Cr. stable at 1.2 Cr 1.6, baseline 1.0-1.2. IVF ordered for fluid [id number] NS at 100 cc per hour. (7) Schizophrenia Status: Chronic Problem Text: c ho severe agitation 10/30 given NPO status, DVP changed to IV. traz 50 QHS, ris 3 BID, quet 200 QHS on hold c tory 0.5 q6 IV prn and + halo 0.5 IV q6H (hold for sedation) (8) GERD (gastroesophageal reflux disease) Status: Chronic Problem Text: IV Protonix (9) IFG (impaired fasting glucose) Status: Chronic Problem Specific Plan: Monitor Clinically, Repeat Labs Problem Text: hgba1c 6.0 09/2018 (10) Aspiration pneumonia Status: Resolved Problem Text: 11/15/18: Abx stopped yesterday. WBC 11.6 today. Patient remains an aspiration risk. Currently NPO with TPN 11/14/18: WBC down to 10.3. Tmax 100.1. Repeat chest x-ray negative for infiltrates. Continue with Zoysn Day #16 11/13: WBC and temp bounced up again overnight. Zosyn continues. Will repeat CXR. 11/10 Tmax 100.1, WBC down slightly at 14. Zosyn D11. 11/09 T max 100.9, WBC increased from 14.8 to 16.5, Zosyn D10, pt is likely recurrently aspirating, exam has revealed pool of oral secretions in post pharynx. [facility] has recinded their agreement for DNR, DNI stating pt doesn't meet criteria. Unfortunately the pt won't be able to live on IV antibiotics to treat his recurrent aspiration of oral secretions and this creates quite a challenging situation, will address further with attending. 11/08 - Zosyn D#9 - WBC trending down, but continues to spike temps - Tmax 101.6 last pm F/U CXR 11/07 - negative 11/07/18: Day #8 Zoysn. WBC 18.4. T-Max 100.4. CXR negative. BC negative 11/06 Zosyn D7. Tmax 100.7 cont to monitor. 11/05/ will check CXR in am to see if he has any clearing. D6 antibiotics. sufficiently stable to transfer to floor with cont. O2 monitoring D5 pip/lizeth remains NPO/asp precautions 11/02/18: WBC continues to improve along with clinical presentation. continue to wean off of oxygen needs. Continue CPT and suctioning. 11/01/18: WBC improved at 17,000. 10/29 CT chest: 1. Airspace consolidations in the bilateral dependent lower lobes significantly larger on the right. 2. Aspirated material in the bronchus intermedius and right lower lobe bronchus. (11) Acute respiratory failure with hypoxia Status: Resolved Problem Specific Plan: Monitor Clinically Problem Text: 11/16/18: Stable 11/15/18: He continues to pool secretions. Meeting today to discuss long plan of care with feeding tube 11/14/18: Stable. He continues to have pooled secretions 11/13: respiratory status stable. he has secretions that pool in hypopharynx posing ongoing aspiration risk and trigger temp increases likely related to microaspiration. 11/10 Resp status stable, 11/09 Await PEG placement, will cont with PPN until PEG placed. Resp status stable with room air O2. 11/08/18 - Add Scapolamine patch per ST. Plan PEG (Dr. Fletcher Consulted) 11/07/18: Repeat CXR:No acute disease. He does require suctioning. [facility] and [facility] do not support DNR/DNI as they feel patient does not meet criteria. They want to move forward with PEG tube placement. 11/06, Tmas 100.7 this morning, repeat CXR pending, pt cont to demonstrate difficulty managing secretions therefore aspiration risk remains high, this risk will cont and possibly increase with placement of J tube. Will cont to work with [facility] to obtain completed MOLST prior to tube placement. 11/04: need approved checklist to issue DNR order to proceed with feeding tube p lacement. 11/03 checklist signed by [facility] rep (Dr. Salazar), but [facility] did not like "wording"; therefore, attempting to determine what verbiage needs to state 11/02 checklist requesting DNR/DNI completed for [facility] to approve, then for Dr. Salazar to sign. Apparently [facility] has approved PEG placement, but would favor DNR/DNI in place BEFOREHAND, given ho COMPLETE HEART BLOCK with previous colonoscopy. 10/31/18 increasing O2 requirement, now at HF 95% at 40L to maintain SaO2>94%; lane whaley [facility] Director that as patient's PCP for 15 years, would recommend DNR/DNI status-MOLST completed accordingly and gave to [facility] key account representative at bedside. Mr. Wynne stated that he would "expedite" the process, but that "nothing would happen tonight". He would present the case to the [facility] and [facility] Board in AM, then would need concurring and Dr. Salazar to sign off. continue alb 2.5/3% Na q6H 10/31/18 1800 ABG 7.49/62/33/92% (12) Hypernatremia Status: Resolved Problem Text: 11/07/18: Remains WNL. We will continue to monitor 11/06 resolved, NA 141, cont to monitor. 11/05 sodium corrected overnight with D5W, will stop this supplemental fluid for now. 11/04: Still High, will d/c current IV fluid, change to D5W at 60, continue parenteral nutrition baseline NA low 140s c HILARY I 11/03 153 + PPN to IVF 10/31 153; therefore, increased to 120H-favor increased insensible loss c persistent free H20 deficit 10/30 150 (150) favor 2 dehydration; therefore, 1/2 NS 80H Plan/VTE VTE Prophylaxis Ordered?: Yes Plan Therapy: PT, OT Anticipated Discharge: Home ([facility] reportedly has a bed waiting for him in the facility able to meet his care needs.) Disposition Possible d/c back to [facility] tomorrow if stable VS, I&O, 24H, Fishbone Vital Signs/I&O Vital Signs Date Time Temp Pulse Resp B/P (MAP) Pulse Ox O2 Delivery O2 Flow Rate FiO2 11/22/18 05:07 97.7 92 18 143/81 (101) 94 11/19/18 06:00 2.0 I&O- Last 24 Hours up to 6 AM 11/22/18 06:00 Intake Total 1732.5 ml Balance 1732.5 ml Laboratory Data 24H LABS Laboratory Tests 2 11/21/18 13:27: Bedside Glucose (Misc Panel) 100 11/21/18 17:34: Bedside Glucose (Misc Panel) 104 11/22/18 00:10: Bedside Glucose (Misc Panel) 92 11/22/18 06:42: Anion Gap 7L, Glomerular Filtration Rate > 60.0, Blood Urea Nitrogen 34H, Creatinine 0.77, Sodium Level 135L, Potassium Level 4.0, Chloride Level 99, Carbon Dioxide Level 29, Calcium Level 8.3L, Aspartate Amino Transf (AST/SGOT) 28, Alanine Aminotransferase (ALT/SGPT) 20, Alkaline Phosphatase 93, Total Bilirubin 0.7, Total Protein 6.4, Albumin 1.1L, Albumin/Globulin Ratio 0.21L CBC/BMP Laboratory Tests 11/22/18 06:42 Calcium Level 8.3 L, Aspartate Amino Transf (AST/SGOT) 28, Alanine Aminotrans ferase (ALT/SGPT) 20, Alkaline Phosphatase 93, Total Bilirubin 0.7, Total Protein 6.4, Albumin 1.1 L ALLEN SEBASTIAN PA-C Nov 22, 2018 07:38
--- NOTE | 2018-11-22 09:41 | REP ---
Portable chest x-ray: Single view. History: Elevated white blood cell count and fever. Aspiration risk. Comparison chest x-ray: November 13, 2018. Findings: There is a right-sided PICC line in place with its tip in the expected location of the superior vena cava. The lungs are symmetrically aerated and no infiltrate is seen. The pleural angles are sharp. Heart size is normal. A gastrostomy tube is visible in the left upper quadrant of the abdomen. There are some degenerative changes in the thoracic spine and in the shoulders. Impression: No active cardiopulmonary disease. Right-sided PICC line in place. G tube noted. Electronically Signed by Mushtaq Quesada MD 11/22/2018 09:32 A
[2018-11-22] MEDS: FUROSEMIDE 20 MG/2 ML VIAL (J1940) IV SCH (10:26)
[2018-11-22] MEDS: VALPROATE SOD INJ 500 MG in D5W 50 ML IV SCH (10:26)
[2018-11-22] MEDS: HEPARIN SOD (PORCINE) 5000 UNITS/ML VIAL SC SCH ×2 (10:26→21:54)
[2018-11-22 13:45] VITALS: BP 131/79
[2018-11-22] MEDS: VALPROATE SOD INJ 250 MG in D5W 50 ML IV SCH (21:54)
[2018-11-22] MEDS: PANTOPRAZOLE 40MG INJ (PROTONIX) (C9113) IV SCH (21:54)
[2018-11-22 22:00] VITALS: BP 142/81
[2018-11-23] MEDS: SODIUM CHLORIDE HYPERTONIC 3% 15ML NEB SOL INH SCH ×4 (01:24→19:47)
[2018-11-23] MEDS: ALBUTEROL SULFATE 2.5 MG/0.5 ML INH NEB SOLN NEB SCH ×4 (01:24→19:46)
[2018-11-23] MEDS: SLF 3 ML SYR IV SCH ×3 (05:40→21:56)
[2018-11-23] MEDS: SODIUM CHLORIDE 0.9% INJ 10 ML SYR IV SCH ×2 (05:41→18:11)
[2018-11-23] MEDS: HALOPERIDOL 5 MG/ML VIAL (J1630) IV SCH ×3 (05:41→21:55)
[2018-11-23 06:07] VITALS: BP 132/80
[2018-11-23 07:26] LABS: HEMATOCRIT 32.1 % (42.0-52.0); HEMOGLOBIN 10.5 g/dl (13.5-17.5); MEAN CORPUSCULAR HEMOGLOBIN 28.2 pg (27.0-33.0); MEAN CORPUSCULAR HGB CONC 32.7 g/dl (32.0-36.5); MEAN CORPUSCULAR VOLUME 86.1 fl (80.0-96.0); PLATELET COUNT, AUTOMATED 310 10^3/uL (150-450); RED BLOOD COUNT 3.73 10^6/uL (4.30-6.10); WHITE BLOOD COUNT 16.3 10^3/uL (4.0-10.0)
[2018-11-23 07:55] LABS: ALBUMIN 1.1 GM/DL (3.2-5.2); ALT/SGPT 20 U/L (12-78); BILIRUBIN,TOTAL 0.5 MG/DL (0.2-1.0); BLOOD UREA NITROGEN 32 MG/DL (7-18); CALCIUM LEVEL 8.4 MG/DL (8.8-10.2); CARBON DIOXIDE LEVEL 31 MEQ/L (21-32); CHLORIDE LEVEL 99 MEQ/L (98-107); CREATININE FOR GFR 0.74 MG/DL (0.70-1.30); GLOMERULAR FILTRATION RATE > 60.0 (>49); GLUCOSE, FASTING 98 MG/DL (70-100); SODIUM LEVEL 136 MEQ/L (136-145); TOTAL PROTEIN 6.8 GM/DL (6.4-8.2)
[2018-11-23] MEDS: HEPARIN SOD (PORCINE) 5000 UNITS/ML VIAL SC SCH ×2 (08:24→21:56)
[2018-11-23] MEDS: VALPROATE SOD INJ 500 MG in D5W 50 ML IV SCH (08:24)
[2018-11-23] MEDS: FUROSEMIDE 20 MG/2 ML VIAL (J1940) IV SCH (08:24)
[2018-11-23] MEDS: SCOPOLAMINE 1MG TRANSDERMAL PATCH TOP SCH (11:20)
--- NOTE | 2018-11-23 13:26 | IPN ---
DATE OF SERVICE: 11/23/2018 Joel was seen on 5 roberts. No clinical change. PHYSICAL EXAMINATION: Lungs clear. Heart: Regular rate and rhythm. Abdomen: Soft. Percutaneous endoscopic gastrostomy (PEG) tube without redness or drainage. LABORATORIES: White count 16.3, hemoglobin 10.5, platelets 310. Sodium 136, potassium 4. IMPRESSION: 1. Tube feedings. Per nursing staff, he had some residuals yesterday, which are no longer an issue. They think his current bolus feeding is working well. 2. Aspiration pneumonia. His white count is climbing a bit, but he has been off his antibiotics. Repeat laboratories have been ordered for the morning. Clinically, he does not act as if he has a pneumonia.
[2018-11-23 14:59] VITALS: BP 131/78
[2018-11-23] MEDS: PANTOPRAZOLE 40MG INJ (PROTONIX) (C9113) IV SCH (21:55)
[2018-11-23] MEDS: VALPROATE SOD INJ 250 MG in D5W 50 ML IV SCH (22:00)
[2018-11-23 22:57] VITALS: BP 134/77
[2018-11-24] MEDS: SODIUM CHLORIDE HYPERTONIC 3% 15ML NEB SOL INH SCH ×2 (01:22→07:44)
[2018-11-24] MEDS: ALBUTEROL SULFATE 2.5 MG/0.5 ML INH NEB SOLN NEB SCH ×2 (01:22→07:44)
[2018-11-24] MEDS: SODIUM CHLORIDE 0.9% INJ 10 ML SYR IV SCH (05:49)
[2018-11-24] MEDS: HALOPERIDOL 5 MG/ML VIAL (J1630) IV SCH (05:49)
[2018-11-24 06:21] VITALS: BP 135/73
[2018-11-24 06:52] LABS: BASO # 0.1 10^3/uL (0.0-0.2); BASO % 0.8 % (0.0-1.0); EOS # 0.5 10^3/uL (0.0-0.5); EOS % 4.1 % (0.0-3.0); HEMATOCRIT 30.6 % (42.0-52.0); HEMOGLOBIN 9.9 g/dl (13.5-17.5); LYMPH # 1.2 10^3/uL (1.5-5.0); MEAN CORPUSCULAR HGB CONC 32.4 g/dl (32.0-36.5); MEAN CORPUSCULAR VOLUME 89.7 fl (80.0-96.0); MONO # 1.2 10^3/uL (0.0-0.8); MONO % 8.8 % (0.0-5.0); NEUTROPHILS # 9.6 10^3/uL (1.5-8.5); NEUTROPHILS % 72.5 % (36.0-66.0); PLATELET COUNT, AUTOMATED 245 10^3/uL (150-450); RED BLOOD COUNT 3.41 10^6/uL (4.30-6.10); WHITE BLOOD COUNT 13.2 10^3/uL (4.0-10.0)
[2018-11-24 07:21] LABS: ALT/SGPT 20 U/L (12-78); BILIRUBIN,TOTAL 0.2 MG/DL (0.2-1.0); BLOOD UREA NITROGEN 28 MG/DL (7-18); CALCIUM LEVEL 8.2 MG/DL (8.8-10.2); CARBON DIOXIDE LEVEL 32 MEQ/L (21-32); CHLORIDE LEVEL 97 MEQ/L (98-107); GLOMERULAR FILTRATION RATE > 60.0 (>49); GLUCOSE, FASTING 102 MG/DL (70-100); POTASSIUM SERUM 3.7 MEQ/L (3.5-5.1); SODIUM LEVEL 135 MEQ/L (136-145); TOTAL PROTEIN 6.3 GM/DL (6.4-8.2)
[2018-11-24] MEDS ORDERED: ALB2.5NEB NEB (08:26)
[2018-11-24] MEDS ORDERED: DEPA1CAP PO (08:26)
[2018-11-24] MEDS ORDERED: LASI20TA3 PO (08:26)
[2018-11-24] MEDS ORDERED: HALO0.5H PO (08:26)
[2018-11-24] MEDS: VALPROATE SOD INJ 500 MG in D5W 50 ML IV SCH (08:26)
[2018-11-24] MEDS ORDERED: SCOP1PAT2 TOP (08:26)
[2018-11-24] MEDS: FUROSEMIDE 20 MG/2 ML VIAL (J1940) IV SCH (08:26)
[2018-11-24] MEDS: HEPARIN SOD (PORCINE) 5000 UNITS/ML VIAL SC SCH (08:26)
[2018-11-24] MEDS ORDERED: PREV30TA3 PO (08:40)
--- NOTE | 2018-11-24 09:23 | DSES ---
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 After discharge from here, he developed coughing and wheezing, taken to [facility] in 10/21, diagnosed with pneumonia, discharged with 10 days of Levaquin and albuterol. [facility] staff was noticing increased difficulty with swallowing, coughing after eating, weak and unable to ambulate. He had increased difficulty and developed hypoxemia, was brought to the emergency room put on BiPAP briefly then CPAP with improvement of his oxygenation. CT of the chest showed airspace consolidation with bilateral dependent lower lobe significantly larger on the right, aspirated material in the bronchus intermedius and the right lower lobe bronchus. He was admitted for bilateral aspiration pneumonia with acute respiratory failure and hypoxemia. Past medical history is significant for Ramirez's palsy, chronic dysphagia on modified diet with ground food and honey thickened liquids, pneumonia on October 21, 2018, history of complete heart block, symptomatic bradycardia during a routine EGD colonoscopy, moderate intellectual disability, schizophrenia with aggressive behavior, history of H. pylori, impaired fasting glucose, chronic dental caries, gastroesophageal reflux disease, chronic kidney disease stage III. PERTINENT LABS ON ADMISSION: White count 20, hemoglobin 12.4, platelets 372,000. Sodium 150, potassium 4.5, BUN 66, creatinine 1.7, glucose 177. Imaging as above. HOSPITAL COURSE: 1. The patient was admitted for bilateral aspiration pneumonia with acute on chronic respiratory failure and hypoxemia. He was treated with IV Zosyn for 16 days. White count normalized. Followup chest x-ray was negative for infiltrates on 11/14. His respiratory status returned to baseline. His sats have remained in the 90s. 2. Aspiration with difficulty managing secretions. The case was reviewed by Dr. Salazar and discussed with [facility]. Ultimately decided to move forward with PEG tube placement recognizing that this does not prevent aspiration. He continues to have a high aspiration risk. PEG tube was placed and he has been started on feedings initially continuous then switched to bolus feedings and per the nutrition recommendations he has been on Nepro 1 can four times a day with free water 200 mL. Free water flush every 4 hours. Head of bed at 30 degrees, aspiration precautions. He has for the most part been tolerating this with minimal residuals but will need to be monitored closely as his chance for aspiration remains present. 3. History of schizophrenia. Medications were adjusted because of his n.p.o. status. Risperdal, Seroquel and trazodone were all held. He was switched to IV Haldol 0.5 mg every 8 hours and has done very well on this. Therefore, I am switching him over to Haldol 0.5 mg via the PEG tube every 8 hours and will defer further adjustments to his psychiatrist as an outpatient, but he has not been aggressive. He has been quite calm and comfortable, has been on that medication for several days through this hospitalization. 4. Anemia likely secondary to malnutrition. His hemoccult was negative. He was transfused 2 units of packed red blood cells on 11/20 and his hemoglobin has remained stable. 5. Severe protein calorie malnutrition. Hopefully this will improve as he has been getting his tube feeds. 6. Peripheral edema. Likely related to low albumin. He is getting some Lasix daily. As his albumin improves I suspect his edema will improve as well. DISPOSITION: He is stable for transfer back to [facility]. He is to followup with Dr. Nesbitt next week. Diet n.p.o. with PEG feedings as discussed above. Activity as tolerated. MEDICATIONS: - albuterol nebulizers every 6 hours and every 4 hours as needed - Depakote sprinkles 250 mg in the morning 500 mg at bedtime via PEG - Lasix 20 mg daily - haloperidol 0.5 mg every 8 hours - scopolamine 1 mg patch every 72 hours - vitamin D 2000 international units daily - Prevacid SoluTab 30 mg daily DISCHARGE DIAGNOSES: 1. Acute respiratory failure with hypoxemia secondary to aspiration pneumonia. 2. Aspiration pneumonia. 3. Oropharyngeal dysphagia requiring PEG tube placement. 4. Acute anemia secondary to malnutrition. 5. Severe protein calorie malnutrition. 6. Peripheral edema. 7. Developmental disability. 8. Schizophrenia. 9. Chronic kidney disease. 10. Gastroesophageal reflux disease. 11. Impaired fasting glucose.
== END 2018-11-24 11:00 | disposition home or self-care (01) | DRG 177 ==
LOC: M ED 22:30 → M ED INP 10-30 00:47 → M ICU 10-30 01:56 → M PCU 10-30 13:56 → M MS5PR 11-04 21:43
PROVIDERS: ADMIT Internal Medicine Nephrology; ATTEND Family Medicine
PROC: 02HV33Z Insertion of Infusion Device into Superior Vena Cava, Percutaneous Approach (ICD-10-PCS; 2018-11-16)
PROC: 0DH63UZ Insertion of Feeding Device into Stomach, Percutaneous Approach (ICD-10-PCS; principal; 2018-11-17 10:15)
PROC: 30233N1 Transfusion of Nonautologous Red Blood Cells into Peripheral Vein, Percutaneous Approach (ICD-10-PCS; 2018-11-20)
DX: J69.0 Pneumonitis due to inhalation of food and vomit (principal); J96.01 Acute respiratory failure with hypoxia; E43 Unspecified severe protein-calorie malnutrition; I50.31 Acute diastolic (congestive) heart failure; E87.2 Acidosis; N17.9 Acute kidney failure, unspecified; E87.0 Hyperosmolality and hypernatremia; F71 Moderate intellectual disabilities; N18.3 Chronic kidney disease, stage 3 (moderate); R13.12 Dysphagia, oropharyngeal phase; K21.9 Gastro-esophageal reflux disease without esophagitis; K02.9 Dental caries, unspecified; F20.9 Schizophrenia, unspecified; Z79.899 Other long term (current) drug therapy; D53.9 Nutritional anemia, unspecified; R73.01 Impaired fasting glucose; Z88.8 Allergy status to other drugs, medicaments and biological substances

== ENCOUNTER → 2018-12-01 | Outpatient (CLI) | payer MEDICARE, MEDICAID ==
[~2018-12-01] MED LIST changes: +ALB2.5NEB INH; +ALB2.5NEB NEB; +CVS100LI4 PO; +DEPA1CAP PO; +DEXT75EL PO; +GUAI100S51 PO; +HALO0.5H PO; +LANS15CA PO; +LASI20TA3 PO; +LEVO500T3 PO; +PREV30TA3 PO; +SCOP1PAT2 TOP; +VALP250S PO; +VITA200028 PO; +ZANT150T40 PO
[2018-12-01 18:05] LABS: BASO # 0.1 10^3/uL (0.0-0.2); BASO % 0.7 % (0.0-1.0); EOS # 0.3 10^3/uL (0.0-0.5); EOS % 2.3 % (0.0-3.0); HEMATOCRIT 32.7 % (42.0-52.0); HEMOGLOBIN 10.2 g/dl (13.5-17.5); LYMPH # 1.5 10^3/uL (1.5-5.0); LYMPH % 13.3 % (24.0-44.0); MEAN CORPUSCULAR HEMOGLOBIN 29.3 pg (27.0-33.0); MEAN CORPUSCULAR HGB CONC 31.2 g/dl (32.0-36.5); MONO # 1.1 10^3/uL (0.0-0.8); MONO % 9.9 % (0.0-5.0); NEUTROPHILS # 7.9 10^3/uL (1.5-8.5); PLATELET COUNT, AUTOMATED 610 10^3/uL (150-450); RED BLOOD COUNT 3.48 10^6/uL (4.30-6.10); WHITE BLOOD COUNT 11.1 10^3/uL (4.0-10.0)
[2018-12-01 18:36] LABS: ALBUMIN 1.9 GM/DL (3.2-5.2); ALT/SGPT 20 U/L (12-78); BILIRUBIN,TOTAL 0.3 MG/DL (0.2-1.0); BLOOD UREA NITROGEN 21 MG/DL (7-18); CALCIUM LEVEL 8.8 MG/DL (8.8-10.2); CARBON DIOXIDE LEVEL 31 MEQ/L (21-32); CHLORIDE LEVEL 98 MEQ/L (98-107); CREATININE FOR GFR 0.69 MG/DL (0.70-1.30); GLOMERULAR FILTRATION RATE > 60.0 (>49); GLUCOSE, FASTING 84 MG/DL (70-100); MAGNESIUM LEVEL 1.8 MG/DL (1.8-2.4); POTASSIUM SERUM 4.7 MEQ/L (3.5-5.1); SODIUM LEVEL 136 MEQ/L (136-145); TOTAL PROTEIN 7.7 GM/DL (6.4-8.2)
== END ==
LOC: M LAB 16:37
PROVIDERS: ATTEND Family Medicine
DX: R13.12 Dysphagia, oropharyngeal phase (principal)
CPT/HCPCS: 80053; 80164; 83735; 85025; 85046; 99496; G0463

== ENCOUNTER 2018-12-09 14:42 | Emergency (ER) | payer MEDICARE, MEDICAID ==
[~2018-12-09 14:42] MED LIST changes: -LANS15CA PO; -VALP250S PO; -VITA200028 PO
[2018-12-09] MEDS ORDERED: LANS15CA PO (15:56)
[2018-12-09] MEDS ORDERED: VITA200028 PO (15:56)
[2018-12-09] MEDS ORDERED: VALP250S PO (15:56)
[2018-12-09 16:05] LABS: BASO # 0.1 10^3/uL (0.0-0.2); BASO % 0.8 % (0.0-1.0); EOS # 0.2 10^3/uL (0.0-0.5); EOS % 1.9 % (0.0-3.0); HEMATOCRIT 34.5 % (42.0-52.0); HEMOGLOBIN 10.7 g/dl (13.5-17.5); LYMPH # 1.8 10^3/uL (1.5-5.0); LYMPH % 18.9 % (24.0-44.0); MEAN CORPUSCULAR HEMOGLOBIN 28.5 pg (27.0-33.0); MONO % 10.2 % (0.0-5.0); NEUTROPHILS # 6.2 10^3/uL (1.5-8.5); NEUTROPHILS % 64.4 % (36.0-66.0); PLATELET COUNT, AUTOMATED 469 10^3/uL (150-450); RED BLOOD COUNT 3.75 10^6/uL (4.30-6.10); WHITE BLOOD COUNT 9.7 10^3/uL (4.0-10.0)
[2018-12-09 16:35] LABS: BLOOD UREA NITROGEN 20 MG/DL (7-18); CALCIUM LEVEL 8.8 MG/DL (8.8-10.2); CARBON DIOXIDE LEVEL 29 MEQ/L (21-32); CHLORIDE LEVEL 97 MEQ/L (98-107); CREATININE FOR GFR 0.68 MG/DL (0.70-1.30); GLOMERULAR FILTRATION RATE > 60.0 (>49); GLUCOSE, FASTING 116 MG/DL (70-100); POTASSIUM SERUM 4.6 MEQ/L (3.5-5.1); SODIUM LEVEL 132 MEQ/L (136-145)
[2018-12-09 17:01] VITALS: BP 125/78
--- NOTE | 2018-12-10 07:40 | REP ---
REASON: Diarrhea. FINDINGS: Supine and upright views of the abdomen show the intestinal gas pattern to be nonspecific. Gas and stool is seen throughout the colon within the rectosigmoid region. The organ silhouettes insofar as delineated appear unremarkable. No abdominal calcific densities are seen within the abdomen or pelvis. The accompanying single frontal view of the chest shows no free subdiaphragmatic air, cardiomegaly, infiltrates or effusions. IMPRESSION: Nonspecific intestinal gas pattern. Electronically Signed by Ruddy Amador DO 12/10/2018 09:00 A
== END 2018-12-09 17:02 | disposition home or self-care (01) ==
LOC: M ED 14:42
DX: R19.7 Diarrhea, unspecified (principal); I51.9 Heart disease, unspecified; Z87.01 Personal history of pneumonia (recurrent); R76.11 Nonspecific reaction to tuberculin skin test without active tuberculosis; K21.9 Gastro-esophageal reflux disease without esophagitis; Z87.19 Personal history of other diseases of the digestive system; N18.3 Chronic kidney disease, stage 3 (moderate); F32.9 Major depressive disorder, single episode, unspecified; F20.9 Schizophrenia, unspecified; E55.9 Vitamin D deficiency, unspecified; Z79.899 Other long term (current) drug therapy; Z88.8 Allergy status to other drugs, medicaments and biological substances

== ENCOUNTER → 2018-12-11 | Outpatient (REF) | payer MEDICARE, MEDICAID ==
[~2018-12-11] MED LIST changes: +LANS15CA PO; +VALP250S PO; +VITA200028 PO
== END ==
LOC: M LAB REF 11:20
PROVIDERS: ATTEND Physician Assistant Medical
DX: R19.7 Diarrhea, unspecified (principal)

== ENCOUNTER → 2018-12-12 | Outpatient (REF) | payer MEDICARE, MEDICAID ==
[2018-12-12 15:17] LABS: BASO # 0.1 10^3/uL (0.0-0.2); BASO % 0.8 % (0.0-1.0); EOS # 0.1 10^3/uL (0.0-0.5); EOS % 1.4 % (0.0-3.0); HEMATOCRIT 37.7 % (42.0-52.0); HEMOGLOBIN 12.1 g/dl (13.5-17.5); LYMPH # 1.7 10^3/uL (1.5-5.0); LYMPH % 17.6 % (24.0-44.0); MEAN CORPUSCULAR HEMOGLOBIN 29.2 pg (27.0-33.0); MEAN CORPUSCULAR HGB CONC 32.1 g/dl (32.0-36.5); MEAN CORPUSCULAR VOLUME 91.1 fl (80.0-96.0); MONO % 10.1 % (0.0-5.0); NEUTROPHILS # 6.5 10^3/uL (1.5-8.5); NEUTROPHILS % 66.5 % (36.0-66.0); PLATELET COUNT, AUTOMATED 413 10^3/uL (150-450); RED BLOOD COUNT 4.14 10^6/uL (4.30-6.10); WHITE BLOOD COUNT 9.7 10^3/uL (4.0-10.0)
[2018-12-12 15:23] LABS: ALBUMIN 2.6 GM/DL (3.2-5.2); ALT/SGPT 19 U/L (12-78); BILIRUBIN,TOTAL 0.5 MG/DL (0.2-1.0); BLOOD UREA NITROGEN 21 MG/DL (7-18); CALCIUM LEVEL 9.3 MG/DL (8.8-10.2); CARBON DIOXIDE LEVEL 29 MEQ/L (21-32); CHLORIDE LEVEL 93 MEQ/L (98-107); CREATININE FOR GFR 0.68 MG/DL (0.70-1.30); GLOMERULAR FILTRATION RATE > 60.0 (>49); GLUCOSE, FASTING 108 MG/DL (70-100); MAGNESIUM LEVEL 2.1 MG/DL (1.8-2.4); PHOSPHORUS LEVEL 4.8 MG/DL (2.5-4.9); SODIUM LEVEL 128 MEQ/L (136-145); TOTAL PROTEIN 8.4 GM/DL (6.4-8.2)
[2018-12-12 15:28] LABS: INR 1.04; PARTIAL THROMBOPLASTIN TIME 29.2 SECONDS (25.0-38.4); PROTHROMBIN TIME 13.3 SECONDS (11.8-14.0)
[2018-12-12 15:43] LABS: PTH INTACT 13.6 PG/ML (18.5-88.0)
[2018-12-12 21:25] LABS: TOTAL 25(OH) VITAMIN D 40.7 NG/ML (30.0-100.0)
== END ==
LOC: M SFHCPLAZ 13:06
PROVIDERS: ATTEND Family Medicine
DX: Z01.818 Encounter for other preprocedural examination (principal); R13.12 Dysphagia, oropharyngeal phase; E55.9 Vitamin D deficiency, unspecified; F73 Profound intellectual disabilities; N18.3 Chronic kidney disease, stage 3 (moderate); Z79.01 Long term (current) use of anticoagulants
CPT/HCPCS: 36415; 80053; 82306; 83516; 83735; 83970; 85025; 85610; 85730; G0463

== ENCOUNTER → 2018-12-15 | Outpatient (CLI) | payer MEDICARE, MEDICAID ==
[2018-12-15 19:12] LABS: OSMOLALITY SERUM 281 MOSM/KG (280-301)
[2018-12-15 19:18] LABS: ALBUMIN 2.7 GM/DL (3.2-5.2); BLOOD UREA NITROGEN 24 MG/DL (7-18); CALCIUM LEVEL 8.9 MG/DL (8.8-10.2); CARBON DIOXIDE LEVEL 30 MEQ/L (21-32); CHLORIDE LEVEL 92 MEQ/L (98-107); CREATININE FOR GFR 0.74 MG/DL (0.70-1.30); GLOMERULAR FILTRATION RATE > 60.0 (>49); GLUCOSE, FASTING 98 MG/DL (70-100); NT-PRO BNP 225 PG/ML (<125); PHOSPHORUS LEVEL 3.9 MG/DL (2.5-4.9); POTASSIUM SERUM 4.6 MEQ/L (3.5-5.1); SODIUM LEVEL 129 MEQ/L (136-145)
== END ==
LOC: M WUC 14:47
PROVIDERS: ATTEND Family Medicine
DX: E87.1 Hypo-osmolality and hyponatremia (principal)

== ENCOUNTER → 2018-12-19 | Outpatient (CLI) | payer MEDICARE, MEDICAID ==
[2018-12-19 13:21] LABS: ALBUMIN 2.7 GM/DL (3.2-5.2); BLOOD UREA NITROGEN 19 MG/DL (7-18); CALCIUM LEVEL 8.9 MG/DL (8.8-10.2); CARBON DIOXIDE LEVEL 31 MEQ/L (21-32); CHLORIDE LEVEL 91 MEQ/L (98-107); CREATININE FOR GFR 0.69 MG/DL (0.70-1.30); GLOMERULAR FILTRATION RATE > 60.0 (>49); GLUCOSE, FASTING 105 MG/DL (70-100); NT-PRO BNP 283 PG/ML (<125); PHOSPHORUS LEVEL 4.1 MG/DL (2.5-4.9); POTASSIUM SERUM 4.3 MEQ/L (3.5-5.1); SODIUM LEVEL 129 MEQ/L (136-145)
[2018-12-19 14:16] LABS: OSMOLALITY SERUM 277 MOSM/KG (280-301)
== END ==
LOC: M LAB 11:51
PROVIDERS: ATTEND Family Medicine
DX: E87.1 Hypo-osmolality and hyponatremia (principal)

== ENCOUNTER → 2018-12-25 | Outpatient (CLI) | payer MEDICARE, MEDICAID ==
[2018-12-25 11:35] LABS: ALBUMIN 2.9 GM/DL (3.2-5.2); ALT/SGPT 17 U/L (12-78); BILIRUBIN,TOTAL 0.3 MG/DL (0.2-1.0); BLOOD UREA NITROGEN 17 MG/DL (7-18); CALCIUM LEVEL 8.8 MG/DL (8.8-10.2); CARBON DIOXIDE LEVEL 31 MEQ/L (21-32); CHLORIDE LEVEL 94 MEQ/L (98-107); CREATININE FOR GFR 0.68 MG/DL (0.70-1.30); GLOMERULAR FILTRATION RATE > 60.0 (>49); GLUCOSE, FASTING 102 MG/DL (70-100); NT-PRO BNP 444 PG/ML (<125); POTASSIUM SERUM 4.1 MEQ/L (3.5-5.1); SODIUM LEVEL 133 MEQ/L (136-145); TOTAL PROTEIN 7.7 GM/DL (6.4-8.2)
== END ==
LOC: M LAB 09:57
PROVIDERS: ATTEND Family Medicine
DX: E87.1 Hypo-osmolality and hyponatremia (principal)

== ENCOUNTER 2018-12-27 11:15 | Outpatient (RCR) | payer MEDICARE, MEDICAID | END 2018-12-28 | LOC: M PT 11:15 | PROVIDERS: ATTEND Physician Assistant | DX: R29.898 Other symptoms and signs involving the musculoskeletal system (principal); M62.81 Muscle weakness (generalized) ==

== ENCOUNTER → 2019-01-01 | Outpatient (REF) | payer MEDICARE, MEDICAID ==
[2019-01-12 13:49] LABS: FATS NEUTRAL Normal
[2019-01-12 13:50] LABS: FATS TOTAL Normal
[2019-01-12 13:51] LABS: PANCREATIC ELASTASE STOOL >500 ug Elast./g
== END ==
LOC: M SFHCPLAZ 11:59
PROVIDERS: ATTEND Family Medicine
DX: R19.7 Diarrhea, unspecified (principal)

== ENCOUNTER → 2019-01-05 | Outpatient (REF) | payer MEDICARE, MEDICAID | LOC: M SFHCPLAZ 11:28 | PROVIDERS: ATTEND Family Medicine | DX: R19.7 Diarrhea, unspecified (principal) ==

== ENCOUNTER → 2019-01-23 | Outpatient (REF) | payer MEDICARE, MEDICAID ==
[2019-01-23 14:08] LABS: BASO % 0.2 % (0.0-1.0); EOS # 0.1 10^3/uL (0.0-0.5); HEMATOCRIT 39.9 % (42.0-52.0); HEMOGLOBIN 12.5 g/dl (13.5-17.5); LYMPH # 1.8 10^3/uL (1.5-5.0); LYMPH % 20.2 % (24.0-44.0); MEAN CORPUSCULAR HEMOGLOBIN 29.7 pg (27.0-33.0); MEAN CORPUSCULAR HGB CONC 31.3 g/dl (32.0-36.5); MEAN CORPUSCULAR VOLUME 94.8 fl (80.0-96.0); MONO # 1.2 10^3/uL (0.0-0.8); MONO % 13.8 % (0.0-5.0); NEUTROPHILS # 5.6 10^3/uL (1.5-8.5); NEUTROPHILS % 64.3 % (36.0-66.0); PLATELET COUNT, AUTOMATED 256 10^3/uL (150-450); RED BLOOD COUNT 4.21 10^6/uL (4.30-6.10); WHITE BLOOD COUNT 8.7 10^3/uL (4.0-10.0)
[2019-01-23 14:11] LABS: ALT/SGPT 15 U/L (12-78); BILIRUBIN,TOTAL 0.3 MG/DL (0.2-1.0); BLOOD UREA NITROGEN 22 MG/DL (7-18); C REACTIVE PROTEIN QUANTITATIV 9.04 MG/DL (0.00-0.30); CALCIUM LEVEL 9.1 MG/DL (8.8-10.2); CARBON DIOXIDE LEVEL 29 MEQ/L (21-32); CHLORIDE LEVEL 102 MEQ/L (98-107); CREATININE FOR GFR 0.88 MG/DL (0.70-1.30); GLOMERULAR FILTRATION RATE > 60.0 (>49); GLUCOSE, FASTING 101 MG/DL (70-100); NT-PRO BNP 137 PG/ML (<125); POTASSIUM SERUM 3.9 MEQ/L (3.5-5.1); SODIUM LEVEL 138 MEQ/L (136-145); TOTAL PROTEIN 7.8 GM/DL (6.4-8.2)
[2019-01-23 14:41] LABS: ERYTHROCYTE SEDIMENTATION RATE 73 mm/hr (0-20)
[2019-01-23 14:54] LABS: HEMOGLOBIN A1c 4.8 %
== END ==
LOC: M SFHCPLAZ 11:05
PROVIDERS: ATTEND Family Medicine
DX: A04.72 Enterocolitis due to Clostridium difficile, not specified as recurrent (principal); Z12.5 Encounter for screening for malignant neoplasm of prostate; R73.01 Impaired fasting glucose; D63.8 Anemia in other chronic diseases classified elsewhere
CPT/HCPCS: 36415; 80053; 83036; 83880; 85025; 85652; 86140; G0103; G0463

== ENCOUNTER → 2019-03-22 | Outpatient (CLI) | payer MEDICARE, MEDICAID ==
[2019-03-22 17:07] LABS: BASO % 0.4 % (0.0-1.0); EOS # 0.1 10^3/uL (0.0-0.5); EOS % 1.1 % (0.0-3.0); HEMATOCRIT 43.4 % (42.0-52.0); HEMOGLOBIN 13.9 g/dl (13.5-17.5); LYMPH % 34.3 % (24.0-44.0); MEAN CORPUSCULAR HEMOGLOBIN 30.1 pg (27.0-33.0); MEAN CORPUSCULAR VOLUME 93.9 fl (80.0-96.0); MONO # 0.7 10^3/uL (0.0-0.8); NEUTROPHILS # 2.9 10^3/uL (1.5-8.5); NEUTROPHILS % 51.7 % (36.0-66.0); PLATELET COUNT, AUTOMATED 215 10^3/uL (150-450); RED BLOOD COUNT 4.62 10^6/uL (4.30-6.10); WHITE BLOOD COUNT 5.7 10^3/uL (4.0-10.0)
[2019-03-22 17:08] LABS: ALBUMIN 3.2 GM/DL (3.2-5.2); ALT/SGPT 14 U/L (12-78); BILIRUBIN,TOTAL 0.2 MG/DL (0.2-1.0); BLOOD UREA NITROGEN 18 MG/DL (7-18); CALCIUM LEVEL 9.3 MG/DL (8.8-10.2); CARBON DIOXIDE LEVEL 30 MEQ/L (21-32); CHLORIDE LEVEL 96 MEQ/L (98-107); CREATININE FOR GFR 0.78 MG/DL (0.70-1.30); GLOMERULAR FILTRATION RATE > 60.0 (>49); GLUCOSE, FASTING 89 MG/DL (70-100); SODIUM LEVEL 133 MEQ/L (136-145); TOTAL PROTEIN 8.5 GM/DL (6.4-8.2); VALPROIC ACID (DEPAKOTE) 68.6 UG/ML (50.0-100.0)
[2019-03-22 17:33] LABS: PTH INTACT 22.5 PG/ML (18.5-88.0); TOTAL 25(OH) VITAMIN D 37.6 NG/ML (30.0-100.0); VITAMIN B12 LEVEL 800 PG/ML (247-911)
[2019-03-22 19:09] LABS: ERYTHROCYTE SEDIMENTATION RATE 44 mm/hr (0-20)
== END ==
LOC: M WUC 12:26
PROVIDERS: ATTEND Family Medicine
DX: E55.9 Vitamin D deficiency, unspecified (principal); E87.1 Hypo-osmolality and hyponatremia; D63.8 Anemia in other chronic diseases classified elsewhere; F73 Profound intellectual disabilities; A04.72 Enterocolitis due to Clostridium difficile, not specified as recurrent; Z79.899 Other long term (current) drug therapy

== ENCOUNTER → 2019-04-18 | Outpatient (CLI) | payer MEDICARE, MEDICAID ==
[~2019-04-18] MED LIST changes: +LORA2TAB14 PEG; +SERO1TAB PEG; +SERO200T PEG
--- NOTE | 2019-04-18 16:32 | REP ---
Examination Requested: Cookie Swallow Reason For Exam: Dysphasia The procedure was performed by ANA Hernandez, under the direct supervision of Dr. Quesada. The procedure was performed with Tita Calle from speech pathology present. 5 ml aliquots of pudding consistency barium was administered. Penetration was visualized throughout the course of the exam. The detailed report of this examination will be provided by speech pathology. 0.7 minutes of fluoroscopy time was utilized for this procedure. Reviewed by ANA Santos 04/18/2019 03:05 P Electronically Signed by Mushtaq Quesada MD 04/18/2019 04:23 P
== END ==
LOC: M ST 13:41
PROVIDERS: ATTEND Family Medicine
DX: R13.10 Dysphagia, unspecified (principal)

== ENCOUNTER 2019-04-20 17:30 | Emergency (ER) | payer MEDICARE, MEDICAID ==
[~2019-04-20] VITALS: Ht 160 cm; Wt 65.5 kg
[~2019-04-20 17:30] MED LIST changes: -LORA2TAB14 PEG; -SERO1TAB PEG; -SERO200T PEG
[2019-04-20] MEDS ORDERED: SERO1TAB PEG (18:54)
[2019-04-20] MEDS ORDERED: SERO200T PEG (18:54)
[2019-04-20] MEDS ORDERED: LORA2TAB14 PEG (18:54)
[2019-04-20] MEDS ORDERED: DERMABOND TOPICAL SKIN ADHESIVE TOP ONE (19:15)
[2019-04-20 19:49] VITALS: BP 127/65
== END 2019-04-20 19:50 | disposition home or self-care (01) ==
LOC: M ED 17:30
DX: T85.518A Breakdown (mechanical) of other gastrointestinal prosthetic devices, implants and grafts, initial encounter (principal); N18.9 Chronic kidney disease, unspecified; R13.10 Dysphagia, unspecified; F79 Unspecified intellectual disabilities; Z79.899 Other long term (current) drug therapy; Z88.8 Allergy status to other drugs, medicaments and biological substances

== ENCOUNTER → 2019-05-15 | Outpatient (CLI) | payer MEDICARE, MEDICAID ==
[~2019-05-15] MED LIST changes: +LORA2TAB14 PEG; +SERO1TAB PEG; +SERO200T PEG
--- NOTE | 2019-05-16 09:14 | REP ---
COOKIE SWALLOW The procedure was performed under the direct supervision of Dr. Damico. The procedure was performed with Tita Calle from speech pathology present. 5 ml aliquots of pudding consistency barium was administered. There is laryngeal penetration. The detailed report of this examination will be provided by speech pathology. 0.8 minutes of fluoroscopy time was utilized for this procedure. Electronically Signed by ANA Lobo 05/15/2019 04:45 P Electronically Signed by Anjel Damico MD 05/16/2019 09:03 A
== END ==
LOC: M ST 10:11
PROVIDERS: ATTEND Family Medicine
DX: R13.12 Dysphagia, oropharyngeal phase (principal)

== ENCOUNTER → 2019-08-09 | Outpatient (CLI) | payer MEDICARE, MEDICAID ==
[2019-08-09 09:29] LABS: BASO % 0.3 % (0.0-1.0); EOS # 0.1 10^3/uL (0.0-0.5); EOS % 1.2 % (0.0-3.0); HEMATOCRIT 40.9 % (42.0-52.0); HEMOGLOBIN 13.5 g/dl (13.5-17.5); LYMPH # 1.4 10^3/uL (1.5-5.0); LYMPH % 21.1 % (24.0-44.0); MEAN CORPUSCULAR HEMOGLOBIN 31.5 pg (27.0-33.0); MEAN CORPUSCULAR VOLUME 95.3 fl (80.0-96.0); MONO # 0.9 10^3/uL (0.0-0.8); MONO % 13.2 % (0.0-5.0); NEUTROPHILS # 4.3 10^3/uL (1.5-8.5); NEUTROPHILS % 63.8 % (36.0-66.0); PLATELET COUNT, AUTOMATED 208 10^3/uL (150-450); RED BLOOD COUNT 4.29 10^6/uL (4.30-6.10); WHITE BLOOD COUNT 6.7 10^3/uL (4.0-10.0)
[2019-08-09 09:50] LABS: ALBUMIN 3.2 GM/DL (3.2-5.2); ALT/SGPT 21 U/L (12-78); BILIRUBIN,TOTAL 0.4 MG/DL (0.2-1.0); BLOOD UREA NITROGEN 19 MG/DL (7-18); CALCIUM LEVEL 9.1 MG/DL (8.8-10.2); CARBON DIOXIDE LEVEL 31 MEQ/L (21-32); CHLORIDE LEVEL 97 MEQ/L (98-107); CREATININE FOR GFR 0.92 MG/DL (0.70-1.30); GLOMERULAR FILTRATION RATE > 60.0 (>49); GLUCOSE, FASTING 104 MG/DL (70-100); POTASSIUM SERUM 4.5 MEQ/L (3.5-5.1); SODIUM LEVEL 134 MEQ/L (136-145); TOTAL PROTEIN 8.2 GM/DL (6.4-8.2); VALPROIC ACID (DEPAKOTE) 68.1 UG/ML (50.0-100.0)
[2019-08-09 10:01] LABS: HEMOGLOBIN A1c 5.6 %
== END ==
LOC: M LAB 08:46
PROVIDERS: ATTEND Family Medicine
DX: F73 Profound intellectual disabilities (principal); E87.1 Hypo-osmolality and hyponatremia; R73.01 Impaired fasting glucose

== ENCOUNTER → 2019-08-10 | Outpatient (CLI) | payer MEDICARE, MEDICAID | LOC: M PLAIMG 13:20 | PROVIDERS: ATTEND Family Medicine | DX: R05 Cough (principal) ==

== ENCOUNTER → 2020-01-02 | Outpatient (CLI) | payer MEDICARE, MEDICAID ==
[2020-01-02 09:55] LABS: BASO % 0.5 % (0.0-1.0); EOS # 0.1 10^3/uL (0.0-0.5); EOS % 1.7 % (0.0-3.0); HEMATOCRIT 43.1 % (42.0-52.0); LYMPH # 1.8 10^3/uL (1.5-5.0); LYMPH % 28.3 % (24.0-44.0); MEAN CORPUSCULAR HGB CONC 32.5 g/dl (32.0-36.5); MEAN CORPUSCULAR VOLUME 95.4 fl (80.0-96.0); MONO # 0.8 10^3/uL (0.0-0.8); NEUTROPHILS # 3.6 10^3/uL (1.5-8.5); PLATELET COUNT, AUTOMATED 181 10^3/uL (150-450); RED BLOOD COUNT 4.52 10^6/uL (4.30-6.10); WHITE BLOOD COUNT 6.4 10^3/uL (4.0-10.0)
[2020-01-02 11:07] LABS: ALBUMIN 3.4 GM/DL (3.2-5.2); ALT/SGPT 27 U/L (12-78); BILIRUBIN,TOTAL 0.4 MG/DL (0.2-1.0); BLOOD UREA NITROGEN 20 MG/DL (7-18); CALCIUM LEVEL 9.7 MG/DL (8.8-10.2); CARBON DIOXIDE LEVEL 29 MEQ/L (21-32); CHLORIDE LEVEL 99 MEQ/L (98-107); CREATININE FOR GFR 1.05 MG/DL (0.70-1.30); GLOMERULAR FILTRATION RATE > 60.0 (>49); GLUCOSE, FASTING 77 MG/DL (70-100); POTASSIUM SERUM 5.2 MEQ/L (3.5-5.1); PTH INTACT 47.2 PG/ML (18.5-88.0); SODIUM LEVEL 135 MEQ/L (136-145); TOTAL 25(OH) VITAMIN D 38.3 NG/ML (30.0-100.0); TOTAL PROTEIN 8.1 GM/DL (6.4-8.2); VALPROIC ACID (DEPAKOTE) 46.8 UG/ML (50.0-100.0)
== END ==
LOC: M LAB 09:12
PROVIDERS: ATTEND Family Medicine
DX: F73 Profound intellectual disabilities (principal); E55.9 Vitamin D deficiency, unspecified; Z12.5 Encounter for screening for malignant neoplasm of prostate
CPT/HCPCS: 36415; 80053; 80164; 82306; 83970; 85025; G0103

== ENCOUNTER → 2020-01-14 | Outpatient (REF) | payer MEDICARE, MEDICAID ==
[2020-01-14 16:59] LABS: ALBUMIN 3.4 GM/DL (3.2-5.2); BLOOD UREA NITROGEN 21 MG/DL (7-18); CALCIUM LEVEL 9.6 MG/DL (8.8-10.2); CARBON DIOXIDE LEVEL 30 MEQ/L (21-32); CHLORIDE LEVEL 99 MEQ/L (98-107); GLOMERULAR FILTRATION RATE > 60.0 (>49); GLUCOSE, FASTING 79 MG/DL (70-100); MAGNESIUM LEVEL 2.3 MG/DL (1.8-2.4); POTASSIUM SERUM 4.7 MEQ/L (3.5-5.1); SODIUM LEVEL 138 MEQ/L (136-145)
== END ==
LOC: M SFHCPLAZ 12:19
PROVIDERS: ATTEND Family Medicine
DX: N18.30 Chronic kidney disease, stage 3 unspecified (principal)
CPT/HCPCS: 36415; 80069; 83735; G0463

== ENCOUNTER → 2020-03-07 | Outpatient (CLI) | payer MEDICARE, MEDICAID ==
--- NOTE | 2020-03-07 13:50 | REP ---
INDICATION: CKD COMPARISON: 08/06/2011 TECHNIQUE: Real time lin scale ultrasound examination using curved array transducer. FINDINGS: Kidneys demonstrate normal reniform shape with increased central sinus fat and no evidence for hydronephrosis, nephrolithiasis, cystic or renal mass lesion. Right kidney measures 9.5 x 4.6 x 4.3 cm. Left kidney measures 9.8 x 4.2 x 5.0 cm. Bladder is normal in appearance and demonstrates bilateral ureteral jets without wall thickening or mass lesion. IMPRESSION: Kidneys demonstrate chronic medical renal disease without hydronephrosis. Normal bladder. <Electronically signed by Castillo Ahuja > 03/07/20 [id number]
== END ==
LOC: M RAD 13:09
PROVIDERS: ATTEND Family Medicine
DX: N18.30 Chronic kidney disease, stage 3 unspecified (principal)

== ENCOUNTER → 2020-04-21 | Outpatient (REF) | payer MEDICARE, MEDICAID ==
[2020-04-21 17:50] LABS: BASO % 0.5 % (0.0-1.0); EOS # 0.1 10^3/uL (0.0-0.5); EOS % 1.6 % (0.0-3.0); HEMATOCRIT 43.1 % (42.0-52.0); HEMOGLOBIN 13.8 g/dl (13.5-17.5); LYMPH # 1.7 10^3/uL (1.5-5.0); LYMPH % 27.6 % (24.0-44.0); MEAN CORPUSCULAR HEMOGLOBIN 31.4 pg (27.0-33.0); MEAN CORPUSCULAR VOLUME 98.2 fl (80.0-96.0); MONO # 0.9 10^3/uL (0.0-0.8); MONO % 14.1 % (2.0-8.0); NEUTROPHILS # 3.4 10^3/uL (1.5-8.5); NEUTROPHILS % 55.6 % (36.0-66.0); PLATELET COUNT, AUTOMATED 246 10^3/uL (150-450); RED BLOOD COUNT 4.39 10^6/uL (4.30-6.10); WHITE BLOOD COUNT 6.2 10^3/uL (4.0-10.0)
[2020-04-21 18:07] LABS: HEMOGLOBIN A1c 5.4 %
[2020-04-21 18:18] LABS: FREE T4 0.75 NG/DL (0.76-1.46); THYROID STIMULATING HORMONE 3.02 uIU/ML (0.358-3.740)
[2020-04-21 18:20] LABS: PTH INTACT 39.8 PG/ML (18.5-88.0); TOTAL 25(OH) VITAMIN D 28.6 NG/ML (30.0-100.0)
== END ==
LOC: M SFHCPLAZ 14:56
PROVIDERS: ATTEND Family Medicine
DX: D75.89 Other specified diseases of blood and blood-forming organs (principal); E55.9 Vitamin D deficiency, unspecified; R73.01 Impaired fasting glucose; Z12.5 Encounter for screening for malignant neoplasm of prostate; D63.8 Anemia in other chronic diseases classified elsewhere; Z79.899 Other long term (current) drug therapy
CPT/HCPCS: 36415; 82306; 82728; 82747; 83036; 83970; 84439; 84443; 85025; G0103; G0463

== ENCOUNTER → 2020-07-14 | Outpatient (CLI) | payer MEDICARE, MEDICAID ==
[2020-07-14 15:20] LABS: BASO % 0.3 % (0.0-1.0); EOS # 0.1 10^3/uL (0.0-0.5); HEMATOCRIT 41.6 % (42.0-52.0); HEMOGLOBIN 13.5 g/dl (13.5-17.5); LYMPH # 1.6 10^3/uL (1.5-5.0); LYMPH % 26.5 % (24.0-44.0); MEAN CORPUSCULAR HEMOGLOBIN 31.5 pg (27.0-33.0); MEAN CORPUSCULAR HGB CONC 32.5 g/dl (32.0-36.5); MEAN CORPUSCULAR VOLUME 97.2 fl (80.0-96.0); MONO # 0.7 10^3/uL (0.0-0.8); MONO % 11.3 % (2.0-8.0); NEUTROPHILS # 3.6 10^3/uL (1.5-8.5); NEUTROPHILS % 59.1 % (36.0-66.0); PLATELET COUNT, AUTOMATED 197 10^3/uL (150-450); RED BLOOD COUNT 4.28 10^6/uL (4.30-6.10); WHITE BLOOD COUNT 6.1 10^3/uL (4.0-10.0)
[2020-07-14 15:24] LABS: HEMATOCRIT 41.6 % (42.0-52.0)
[2020-07-14 15:41] LABS: HEMOGLOBIN A1c 5.4 %
[2020-07-14 15:53] LABS: FREE T4 0.65 NG/DL (0.76-1.46); THYROID STIMULATING HORMONE 5.45 uIU/ML (0.358-3.740)
[2020-07-14 15:55] LABS: TOTAL 25(OH) VITAMIN D 27.7 NG/ML (30.0-100.0)
== END ==
LOC: M LAB 14:22
PROVIDERS: ATTEND Family Medicine
DX: Z12.5 Encounter for screening for malignant neoplasm of prostate (principal); R73.01 Impaired fasting glucose; E55.9 Vitamin D deficiency, unspecified; D75.89 Other specified diseases of blood and blood-forming organs; Z79.899 Other long term (current) drug therapy
CPT/HCPCS: 36415; 82306; 82728; 82747; 83036; 83970; 84439; 84443; 85025; G0103

== ENCOUNTER → 2020-09-16 | Outpatient (CLI) | payer MEDICARE, MEDICAID ==
[~2020-09-16] MED LIST changes: -DOXY50CA4 PO; +DOXY50CA7 PO
[2020-09-16 10:57] LABS: BASO % 0.5 % (0.0-1.0); EOS # 0.1 10^3/uL (0.0-0.5); EOS % 1.4 % (0.0-3.0); HEMATOCRIT 43.8 % (42.0-52.0); HEMOGLOBIN 14.1 g/dl (13.5-17.5); LYMPH # 1.5 10^3/uL (1.5-5.0); LYMPH % 22.7 % (24.0-44.0); MEAN CORPUSCULAR HEMOGLOBIN 31.6 pg (27.0-33.0); MEAN CORPUSCULAR HGB CONC 32.2 g/dl (32.0-36.5); MEAN CORPUSCULAR VOLUME 98.2 fl (80.0-96.0); MONO # 0.8 10^3/uL (0.0-0.8); MONO % 12.8 % (2.0-8.0); NEUTROPHILS % 61.8 % (36.0-66.0); PLATELET COUNT, AUTOMATED 197 10^3/uL (150-450); RED BLOOD COUNT 4.46 10^6/uL (4.30-6.10); WHITE BLOOD COUNT 6.4 10^3/uL (4.0-10.0)
[2020-09-16 11:35] LABS: ALBUMIN 3.6 GM/DL (3.2-5.2); ALT/SGPT 28 U/L (12-78); BILIRUBIN,TOTAL 0.4 MG/DL (0.2-1.0); BLOOD UREA NITROGEN 23 MG/DL (7-18); CALCIUM LEVEL 9.4 MG/DL (8.8-10.2); CARBON DIOXIDE LEVEL 35 MEQ/L (21-32); CHLORIDE LEVEL 99 MEQ/L (98-107); CHOLESTEROL LEVEL 168 MG/DL (<200); CHOLESTEROL RISK RATIO 3.111 (<5); CREATININE FOR GFR 0.99 MG/DL (0.70-1.30); FREE T4 0.67 NG/DL (0.76-1.46); GLOMERULAR FILTRATION RATE > 60.0 (>49); GLUCOSE, FASTING 82 MG/DL (70-100); HDL CHOLESTEROL 54 MG/DL (>40); LDL CHOLESTEROL 70 MG/DL (<100); MAGNESIUM LEVEL 2.3 MG/DL (1.8-2.4); NON-HDL-C 114 MG/DL; POTASSIUM SERUM 4.6 MEQ/L (3.5-5.1); SODIUM LEVEL 137 MEQ/L (136-145); TOTAL PROTEIN 7.9 GM/DL (6.4-8.2); TRIGLYCERIDES LEVEL 218 MG/DL (<150); VALPROIC ACID (DEPAKOTE) 90.2 UG/ML (50.0-100.0); VITAMIN B12 LEVEL 1069 PG/ML (247-911)
== END ==
LOC: M LAB 09:15
PROVIDERS: ATTEND Family Medicine
DX: E78.2 Mixed hyperlipidemia (principal); R73.01 Impaired fasting glucose; D75.89 Other specified diseases of blood and blood-forming organs; F73 Profound intellectual disabilities

== ENCOUNTER → 2021-02-13 | Outpatient (CLI) | payer MEDICARE, MEDICAID ==
[~2021-02-13] MED LIST changes: -DOXY1CAP60 PO; +DOXY50CA51 PO; -LEVO500T3 PO; +LEVO500T4 PO; -SCOP1PAT2 TOP; +TRAN1DIS4 TOP
[2021-02-13 10:57] LABS: BASO # 0.1 10^3/uL (0.0-0.2); BASO % 0.6 % (0.0-1.0); EOS # 0.1 10^3/uL (0.0-0.5); EOS % 1.1 % (0.0-3.0); HEMATOCRIT 39.6 % (42.0-52.0); HEMOGLOBIN 12.7 g/dl (13.5-17.5); LYMPH # 1.5 10^3/uL (1.5-5.0); LYMPH % 15.4 % (24.0-44.0); MEAN CORPUSCULAR HEMOGLOBIN 31.8 pg (27.0-33.0); MEAN CORPUSCULAR HGB CONC 32.1 g/dl (32.0-36.5); NEUTROPHILS % 71.3 % (36.0-66.0); PLATELET COUNT, AUTOMATED 545 10^3/uL (150-450); WHITE BLOOD COUNT 9.8 10^3/uL (4.0-10.0)
[2021-02-13 11:55] LABS: ALBUMIN 2.4 GM/DL (3.2-5.2); ALT/SGPT 35 U/L (12-78); BILIRUBIN,TOTAL 0.4 MG/DL (0.2-1.0); BLOOD UREA NITROGEN 27 MG/DL (7-18); CALCIUM LEVEL 9.1 MG/DL (8.8-10.2); CARBON DIOXIDE LEVEL 30 MEQ/L (21-32); CHLORIDE LEVEL 99 MEQ/L (98-107); CREATININE FOR GFR 0.83 MG/DL (0.70-1.30); FERRITIN 904 NG/ML (26-388); GLOMERULAR FILTRATION RATE > 60.0 (>42); GLUCOSE, FASTING 69 MG/DL (70-100); SODIUM LEVEL 137 MEQ/L (136-145); TOTAL PROTEIN 6.9 GM/DL (6.4-8.2); VALPROIC ACID (DEPAKOTE) 72.4 UG/ML (50.0-100.0)
[2021-02-13 11:58] LABS: PTH INTACT 33.6 PG/ML (18.5-88.0)
[2021-02-13 12:02] LABS: HEMOGLOBIN A1c 5.8 %
== END ==
LOC: M LAB 08:47
PROVIDERS: ATTEND Family Medicine
DX: N18.30 Chronic kidney disease, stage 3 unspecified (principal); D63.8 Anemia in other chronic diseases classified elsewhere; D75.89 Other specified diseases of blood and blood-forming organs; R73.01 Impaired fasting glucose

== ENCOUNTER → 2021-04-30 | Outpatient (REF) | payer MEDICARE, MEDICAID ==
[2021-05-01 11:18] LABS: BASO % 0.3 % (0.0-1.0); EOS # 0.1 10^3/uL (0.0-0.5); EOS % 0.8 % (0.0-3.0); HEMATOCRIT 38.4 % (42.0-52.0); HEMOGLOBIN 12.2 g/dl (13.5-17.5); LYMPH # 1.7 10^3/uL (1.5-5.0); LYMPH % 22.7 % (24.0-44.0); MEAN CORPUSCULAR HEMOGLOBIN 29.4 pg (27.0-33.0); MEAN CORPUSCULAR HGB CONC 31.8 g/dl (32.0-36.5); MEAN CORPUSCULAR VOLUME 92.5 fl (80.0-96.0); MONO # 0.9 10^3/uL (0.0-0.8); NEUTROPHILS # 4.6 10^3/uL (1.5-8.5); NEUTROPHILS % 63.6 % (36.0-66.0); PLATELET COUNT, AUTOMATED 348 10^3/uL (150-450); RED BLOOD COUNT 4.15 10^6/uL (4.30-6.10); WHITE BLOOD COUNT 7.3 10^3/uL (4.0-10.0)
[2021-05-01 11:23] LABS: ALBUMIN 3.3 GM/DL (3.2-5.2); ALT/SGPT 22 U/L (12-78); BILIRUBIN,TOTAL 0.3 MG/DL (0.2-1.0); BLOOD UREA NITROGEN 19 MG/DL (7-18); CALCIUM LEVEL 9.8 MG/DL (8.8-10.2); CARBON DIOXIDE LEVEL 31 MEQ/L (21-32); CHLORIDE LEVEL 96 MEQ/L (98-107); CREATININE FOR GFR 0.78 MG/DL (0.70-1.30); GLOMERULAR FILTRATION RATE > 60.0 (>42); GLUCOSE, FASTING 85 MG/DL (70-100); POTASSIUM SERUM 5.2 MEQ/L (3.5-5.1); SODIUM LEVEL 131 MEQ/L (136-145); TOTAL PROTEIN 7.8 GM/DL (6.4-8.2); VALPROIC ACID (DEPAKOTE) 63.8 UG/ML (50.0-100.0)
[2021-05-01 11:24] LABS: FERRITIN 607 NG/ML (26-388)
[2021-05-01 11:30] LABS: PTH INTACT 32.9 PG/ML (18.5-88.0)
[2021-05-01 12:09] LABS: HEMOGLOBIN A1c 5.2 %
[2021-05-02 17:07] LABS: FREE KAPPA LIGHT CHAINS SERUM 84.8 mg/L (3.3-19.4); FREE LAMBDA LIGHT CHAINS SERUM 46.7 mg/L (5.7-26.3); KAPPA/LAMBDA RATIO SERUM 1.82 (0.26-1.65)
== END ==
LOC: M SFHCCLAY 14:04
PROVIDERS: ATTEND Nurse Practitioner Family
DX: N18.30 Chronic kidney disease, stage 3 unspecified (principal); D75.89 Other specified diseases of blood and blood-forming organs; R73.01 Impaired fasting glucose

== ENCOUNTER 2021-05-24 03:01 | Emergency (ER) | payer MEDICARE, MEDICAID ==
[~2021-05-24] VITALS: Ht 157.5 cm; Wt 65.3 kg
[2021-05-24 05:53] LABS: BASO % 0.4 % (0.0-1.0); EOS # 0.1 10^3/uL (0.0-0.5); EOS % 1.8 % (0.0-3.0); HEMATOCRIT 37.2 % (42.0-52.0); HEMOGLOBIN 12.1 g/dl (13.5-17.5); LYMPH # 1.6 10^3/uL (1.5-5.0); LYMPH % 28.3 % (24.0-44.0); MEAN CORPUSCULAR HEMOGLOBIN 29.3 pg (27.0-33.0); MEAN CORPUSCULAR HGB CONC 32.5 g/dl (32.0-36.5); MEAN CORPUSCULAR VOLUME 90.1 fl (80.0-96.0); MONO # 0.8 10^3/uL (0.0-0.8); MONO % 14.3 % (2.0-8.0); NEUTROPHILS % 54.7 % (36.0-66.0); PLATELET COUNT, AUTOMATED 252 10^3/uL (150-450); RED BLOOD COUNT 4.13 10^6/uL (4.30-6.10); WHITE BLOOD COUNT 5.5 10^3/uL (4.0-10.0)
[2021-05-24 07:52] VITALS: BP 180/81
== END 2021-05-24 07:53 | disposition home or self-care (01) ==
LOC: M ED 03:01
DX: Z04.3 Encounter for examination and observation following other accident (principal); W06.XXXA Fall from bed, initial encounter; Y92.099 Unspecified place in other non-institutional residence as the place of occurrence of the external cause; Y93.9 Activity, unspecified; Y99.9 Unspecified external cause status; J45.909 Unspecified asthma, uncomplicated; N18.30 Chronic kidney disease, stage 3 unspecified; M85.80 Other specified disorders of bone density and structure, unspecified site; F20.9 Schizophrenia, unspecified; F79 Unspecified intellectual disabilities; Z91.89 Other specified personal risk factors, not elsewhere classified; Z79.899 Other long term (current) drug therapy; Z88.8 Allergy status to other drugs, medicaments and biological substances

== ENCOUNTER → 2021-07-01 | Outpatient (CLI) | payer MEDICARE, MEDICAID | LOC: M LABSMTC 09:54 | PROVIDERS: ATTEND Emergency Medicine | DX: Z20.822 Contact with and (suspected) exposure to COVID-19 (principal) | CPT/HCPCS: 87426; C9803 ==

== ENCOUNTER → 2021-08-12 | Outpatient (CLI) | payer MEDICARE, MEDICAID ==
[~2021-08-12] MED LIST changes: +ALBU2.5V10 INH; -ALBU83IN INH
== END ==
LOC: M WHC 10:35
PROVIDERS: ATTEND Family Medicine
DX: M85.852 Other specified disorders of bone density and structure, left thigh (principal)

== ENCOUNTER 2021-10-02 00:55 | Inpatient (IN) | payer MEDICARE, MEDICAID ==
[~2021-10-02] VITALS: Ht 157.5 cm; Wt 65.6 kg
[2021-10-02] VITALS (35 sets, daily range): BP systolic 82–205; BP diastolic 47–104; O2SAT 96
[~2021-10-02 00:55] MED LIST changes: +LEVO1TAB39 PO; -LEVO500T4 PO
[2021-10-02 01:23] LABS: ABG BASE EXCESS 2.1 (-2.0-2.0); ABG HCO3 27.5 MEQ/L (22.0-26.0); ABG O2 SATURATION 91.2 % (95.0-99.0); ABG PARTIAL PRESSURE CO2 45.7 mmHg (35.0-45.0); ABG PARTIAL PRESSURE O2 59.4 mmHg (75.0-100.0); ABG STANDARD HCO3 26.2 MEQ/L (22.0-26.0); ABG TOTAL CO2 28.9 MEQ/L (23.0-31.0); ABG pH (ARTERIAL) 7.397 UNITS (7.350-7.450)
[2021-10-02 01:33] LABS: BASO % 0.3 % (0.0-1.0); EOS % 0.1 % (0.0-3.0); HEMATOCRIT 41.4 % (42.0-52.0); HEMOGLOBIN 13.7 g/dl (13.5-17.5); LYMPH # 0.8 10^3/uL (1.5-5.0); LYMPH % 8.2 % (24.0-44.0); MEAN CORPUSCULAR HEMOGLOBIN 30.9 pg (27.0-33.0); MEAN CORPUSCULAR HGB CONC 33.1 g/dl (32.0-36.5); MEAN CORPUSCULAR VOLUME 93.5 fl (80.0-96.0); MONO # 0.9 10^3/uL (0.0-0.8); MONO % 9.9 % (2.0-8.0); NEUTROPHILS # 7.7 10^3/uL (1.5-8.5); PLATELET COUNT, AUTOMATED 208 10^3/uL (150-450); RED BLOOD COUNT 4.43 10^6/uL (4.30-6.10); WHITE BLOOD COUNT 9.5 10^3/uL (4.0-10.0)
[2021-10-02 02:00] LABS: INR 0.97; PROTHROMBIN TIME 13.3 SECONDS (12.7-14.5)
[2021-10-02 02:16] LABS: CK-MB VALUE MASS 2.7 NG/ML (<3.6); MB/CK RELATIVE INDEX 2.08 (< OR =4)
[2021-10-02 02:17] LABS: ALBUMIN 3.3 GM/DL (3.2-5.2); ALT/SGPT 26 U/L (12-78); BILIRUBIN,DIRECT 0.2 MG/DL (0.0-0.2); BILIRUBIN,TOTAL 0.4 MG/DL (0.2-1.0); BLOOD UREA NITROGEN 18 MG/DL (7-18); CALCIUM LEVEL 9.1 MG/DL (8.8-10.2); CARBON DIOXIDE LEVEL 30 MEQ/L (21-32); CHLORIDE LEVEL 90 MEQ/L (98-107); CREATININE FOR GFR 0.88 MG/DL (0.70-1.30); GLOMERULAR FILTRATION RATE > 60.0 (>42); GLUCOSE, FASTING 110 MG/DL (70-100); NT-PRO BNP 227 PG/ML (<125); POTASSIUM SERUM 4.8 MEQ/L (3.5-5.1); SODIUM LEVEL 127 MEQ/L (136-145); TOTAL PROTEIN 8.2 GM/DL (6.4-8.2)
[2021-10-02] MEDS ORDERED: IPRATROPIUM 0.5MG/ALBUTEROL 2.5MG INH SOL UD 3ML (DUONEB) NEB SCH (02:30)
[2021-10-02] MEDS ORDERED: IPRATROPIUM 0.5MG/ALBUTEROL 2.5MG INH SOL UD 3ML (DUONEB) As Ordered ONE (02:30)
[2021-10-02] MEDS ORDERED: ISOVUE-370 76% 100ML VIAL As Ordered ONE (02:49)
[2021-10-02] MEDS ORDERED: dexameTHASONE 20MG/5ML VIAL (J1100 PER 1MG) IV ONE (03:05)
[2021-10-02] MEDS ORDERED: PIPERACILLIN/TAZOBACTAM SOD 3.375 GM in D5W MINI-BAG PLUS 50 ML IV ONE (04:55)
[2021-10-02] MEDS ORDERED: SENN8.6T28 GT (05:37)
[2021-10-02] MEDS ORDERED: D-VI400L GT (05:37)
[2021-10-02] MEDS ORDERED: LORA2TA GT (05:37)
[2021-10-02] MEDS ORDERED: SERO200T GT (05:37)
[2021-10-02] MEDS ORDERED: CULTCAP2 GT (05:37)
[2021-10-02] MEDS ORDERED: VALP250S GT (05:37)
[2021-10-02] MEDS ORDERED: MAGN1.743 GT (05:37)
[2021-10-02] MEDS ORDERED: LANS30TA5 GT (05:37)
[2021-10-02] MEDS ORDERED: SERO1TAB GT (05:37)
[2021-10-02] MEDS ORDERED: HOME MED LIST COMPLETE! XX SCH (05:40)
[2021-10-02] MEDS ORDERED: NS 1,000 ML IV SCH (06:45)
[2021-10-02] MEDS ORDERED: ALBUTEROL SULFATE 2.5 MG/0.5 ML INH NEB SOLN NEB PRN (06:45)
[2021-10-02] MEDS ORDERED: NS 500 ML IV ONE (06:55)
[2021-10-02 07:24] LABS: ABG HCO3 28.3 MEQ/L (22.0-26.0); ABG PARTIAL PRESSURE CO2 41.5 mmHg (35.0-45.0); ABG PARTIAL PRESSURE O2 81.1 mmHg (75.0-100.0); ABG TOTAL CO2 29.6 MEQ/L (23.0-31.0); ABG pH (ARTERIAL) 7.452 UNITS (7.350-7.450)
[2021-10-02] MEDS: PANTOPRAZOLE 40MG VIAL IV SCH (08:30)
[2021-10-02 08:45] LABS: PARTIAL THROMBOPLASTIN TIME 33.4 SECONDS (25.9-37.0); PROTHROMBIN TIME 13.6 SECONDS (12.7-14.5)
[2021-10-02 08:48] LABS: D-DIMER QUANT 471.23 ng/ml (<500)
[2021-10-02] MEDS ORDERED: LORazepam 2 MG TAB GT SCH (09:00)
[2021-10-02 09:10] LABS: BLOOD UREA NITROGEN 19 MG/DL (7-18); C REACTIVE PROTEIN QUANTITATIV 9.82 MG/DL (0.00-0.30); CARBON DIOXIDE LEVEL 29 MEQ/L (21-32); CHLORIDE LEVEL 91 MEQ/L (98-107); FERRITIN 325 NG/ML (26-388); GLOMERULAR FILTRATION RATE > 60.0 (>42); GLUCOSE, FASTING 145 MG/DL (70-100); LDH LACTATE DEHYDROGENASE 156 U/L (87-241); SODIUM LEVEL 126 MEQ/L (136-145)
[2021-10-02] MEDS: QUEtiapine FUMARATE 100 MG TAB GT SCH (09:33)
[2021-10-02] MEDS: BARICITINIB 2MG TABLET (OLUMIANT) FOR EUA PO SCH (09:34)
[2021-10-02] MEDS ORDERED: SODIUM CHLORIDE 0.9% INJ 10 ML SYR IV ONE (10:00)
[2021-10-02] MEDS ORDERED: REMDESIVIR 200 MG in NS 250 ML IV ONE (10:00)
[2021-10-02] MEDS: VALPROIC ACID 250MG/5ML SOL ORAL SYRINGE *DRAW UP EXACT DOSE GT SCH ×2 (11:02→20:49)
[2021-10-02] MEDS: IPRATROPIUM 0.5MG/ALBUTEROL 2.5MG INH SOL UD 3ML (DUONEB) NEB SCH ×4 (12:00→20:38)
[2021-10-02] MEDS ORDERED: PROPOFOL 1,000 MG/100 ML VIAL As Ordered ONE (12:30)
[2021-10-02] MEDS ORDERED: ETOMIDATE INJ 20MG/10ML VIAL IV STA (12:52)
[2021-10-02] MEDS ORDERED: ROCURONIUM BROMIDE 50 MG/5 ML VIAL IV ONE (12:55)
[2021-10-02] MEDS: propofoL 1,000 MG in IV 1 EA IV SCH ×2 (12:56→17:54)
[2021-10-02] MEDS: ENOXAPARIN 40MG/0.4ML SYRINGE (J1650 PER 10MG) SC SCH ×2 (13:11→20:49)
[2021-10-02] MEDS: PIPERACILLIN/TAZOBACTAM SOD 3.375 GM in D5W MINI-BAG PLUS 50 ML IV SCH ×3 (13:12→23:52)
[2021-10-02] MEDS: MORPHINE 2 MG/ML 1ML VIAL IV PRN (13:39)
[2021-10-02] MEDS ORDERED: SUCCINYLCHOLINE 100 MG/5 ML SYRINGE (J0330) ONE (13:48)
[2021-10-02] MEDS ORDERED: ETOMIDATE INJ 20MG/10ML VIAL ONE (13:48)
[2021-10-02 13:49] LABS: INR 1.03
[2021-10-02 13:50] LABS: PARTIAL THROMBOPLASTIN TIME 38.3 SECONDS (25.9-37.0)
[2021-10-02 13:51] LABS: ALBUMIN 2.7 GM/DL (3.2-5.2); BILIRUBIN,DIRECT 0.2 MG/DL (0.0-0.2); BILIRUBIN,TOTAL 0.4 MG/DL (0.2-1.0); THYROID STIMULATING HORMONE 1.39 uIU/ML (0.358-3.740)
[2021-10-02 13:52] LABS: D-DIMER QUANT 548.9 ng/ml (<500)
[2021-10-02] MEDS ORDERED: HEPARIN SOD (PORCINE) 5000UNITS/ML 1ML VIAL/SYRINGE SC SCH (14:00)
[2021-10-02 14:18] LABS: ABG BASE EXCESS 0.8 (-2.0-2.0); ABG O2 SATURATION 99.4 % (95.0-99.0); ABG PARTIAL PRESSURE CO2 38.6 mmHg (35.0-45.0); ABG STANDARD HCO3 25.2 MEQ/L (22.0-26.0); ABG TOTAL CO2 26.2 MEQ/L (23.0-31.0); ABG pH (ARTERIAL) 7.429 UNITS (7.350-7.450)
[2021-10-02] MEDS ORDERED: hydrALAZINE 20MG/ML 1ML VIAL (J0360 PER 20MG) IV STA (14:22)
[2021-10-02] MEDS: METOPROLOL TART 25 MG TABLET GT SCH ×3 (14:43→23:53)
[2021-10-02 14:53] LABS: SODIUM,RANDOM URINE 49 MEQ/L
[2021-10-02 15:09] LABS: OSMOLALITY URINE 513 MOSM/KG (50-1400)
[2021-10-02 17:53] LABS: BLOOD UREA NITROGEN 20 MG/DL (7-18); CALCIUM LEVEL 8.5 MG/DL (8.8-10.2); CARBON DIOXIDE LEVEL 22 MEQ/L (21-32); CHLORIDE LEVEL 94 MEQ/L (98-107); CREATININE FOR GFR 1.01 MG/DL (0.70-1.30); GLOMERULAR FILTRATION RATE > 60.0 (>42); GLUCOSE, FASTING 256 MG/DL (70-100); POTASSIUM SERUM 3.4 MEQ/L (3.5-5.1); SODIUM LEVEL 129 MEQ/L (136-145)
[2021-10-02] MEDS ORDERED: POTASSIUM CHLORIDE 10% LIQ 20 MEQ/15 ML UDC GT ONE (18:05)
[2021-10-02] MEDS: INSULIN LISPRO (NovoLOG) PER UNIT SC SCH ×2 (18:23→23:53)
[2021-10-02] MEDS: hydrALAZINE 20MG/ML 1ML VIAL (J0360 PER 20MG) IV SCH (20:00)
[2021-10-02] MEDS: QUEtiapine FUMARATE 200 MG TAB GT SCH (20:49)
[2021-10-02] MEDS: CHLORHEXIDINE GLUCONATE 0.12 % 15ML UDC (PERIDEX ORAL RINSE) MT SCH (20:50)
[2021-10-02] MEDS: MIDAZOLAM INJ 2MG/2ML VIAL (J2250 PER 1MG) IV PRN (21:09)
[2021-10-03] VITALS (46 sets, daily range): BP systolic 91–133; BP diastolic 50–64
[2021-10-03] MEDS: propofoL 1,000 MG in IV 1 EA IV SCH ×6 (00:07→21:58)
[2021-10-03] MEDS: hydrALAZINE 20MG/ML 1ML VIAL (J0360 PER 20MG) IV SCH ×2 (01:58→08:00)
[2021-10-03] MEDS: MIDAZOLAM INJ 2MG/2ML VIAL (J2250 PER 1MG) IV PRN (03:09)
[2021-10-03] MEDS: METOPROLOL TART 25 MG TABLET GT SCH (05:25)
[2021-10-03] MEDS: INSULIN LISPRO (NovoLOG) PER UNIT SC SCH ×3 (05:34→18:45)
[2021-10-03] MEDS: PIPERACILLIN/TAZOBACTAM SOD 3.375 GM in D5W MINI-BAG PLUS 50 ML IV SCH ×3 (05:34→17:20)
[2021-10-03 06:04] LABS: ABG BASE EXCESS 0.3 (-2.0-2.0); ABG HCO3 24.1 MEQ/L (22.0-26.0); ABG O2 SATURATION 97.4 % (95.0-99.0); ABG PARTIAL PRESSURE CO2 35.9 mmHg (35.0-45.0); ABG PARTIAL PRESSURE O2 89.7 mmHg (75.0-100.0); ABG STANDARD HCO3 24.8 MEQ/L (22.0-26.0); ABG TOTAL CO2 25.2 MEQ/L (23.0-31.0); ABG pH (ARTERIAL) 7.445 UNITS (7.350-7.450)
[2021-10-03 07:37] LABS: BASO % 0.1 % (0.0-1.0); HEMATOCRIT 30.7 % (42.0-52.0); LYMPH # 0.8 10^3/uL (1.5-5.0); LYMPH % 7.5 % (24.0-44.0); MEAN CORPUSCULAR HEMOGLOBIN 31.5 pg (27.0-33.0); MEAN CORPUSCULAR HGB CONC 34.2 g/dl (32.0-36.5); MEAN CORPUSCULAR VOLUME 92.2 fl (80.0-96.0); MONO # 0.9 10^3/uL (0.0-0.8); NEUTROPHILS % 83.8 % (36.0-66.0); PLATELET COUNT, AUTOMATED 163 10^3/uL (150-450); RED BLOOD COUNT 3.33 10^6/uL (4.30-6.10); WHITE BLOOD COUNT 10.7 10^3/uL (4.0-10.0)
[2021-10-03] MEDS: IPRATROPIUM 0.5MG/ALBUTEROL 2.5MG INH SOL UD 3ML (DUONEB) NEB SCH ×4 (07:44→20:28)
[2021-10-03 07:46] LABS: HEMOGLOBIN 10.5 g/dl (13.5-17.5)
[2021-10-03 08:30] LABS: ALBUMIN 2.3 GM/DL (3.2-5.2); ALT/SGPT 18 U/L (12-78); BILIRUBIN,DIRECT 0.1 MG/DL (0.0-0.2); BILIRUBIN,TOTAL 0.3 MG/DL (0.2-1.0); BLOOD UREA NITROGEN 22 MG/DL (7-18); CALCIUM LEVEL 8.8 MG/DL (8.8-10.2); CARBON DIOXIDE LEVEL 24 MEQ/L (21-32); CHLORIDE LEVEL 95 MEQ/L (98-107); CREATININE FOR GFR 1.15 MG/DL (0.70-1.30); GLOMERULAR FILTRATION RATE > 60.0 (>42); GLUCOSE, FASTING 211 MG/DL (70-100); MAGNESIUM LEVEL 2.1 MG/DL (1.8-2.4); POTASSIUM SERUM 3.9 MEQ/L (3.5-5.1); SODIUM LEVEL 127 MEQ/L (136-145); TOTAL PROTEIN 6.6 GM/DL (6.4-8.2)
[2021-10-03] MEDS: CHLORHEXIDINE GLUCONATE 0.12 % 15ML UDC (PERIDEX ORAL RINSE) MT SCH ×2 (09:26→20:04)
[2021-10-03] MEDS: dexameTHASONE 4 MG/ML 1ML VIAL (J1100 PER 1MG) IV SCH (09:27)
[2021-10-03] MEDS: ENOXAPARIN 40MG/0.4ML SYRINGE (J1650 PER 10MG) SC SCH ×2 (09:27→20:05)
[2021-10-03] MEDS: PANTOPRAZOLE 40MG VIAL IV SCH (09:29)
[2021-10-03] MEDS: MORPHINE 2 MG/ML 1ML VIAL IV PRN (09:29)
[2021-10-03] MEDS: VALPROIC ACID 250MG/5ML SOL ORAL SYRINGE *DRAW UP EXACT DOSE GT SCH ×2 (09:29→20:05)
[2021-10-03] MEDS: QUEtiapine FUMARATE 100 MG TAB GT SCH (09:30)
[2021-10-03] MEDS: BARICITINIB 2MG TABLET (OLUMIANT) FOR EUA PO SCH (09:30)
[2021-10-03] MEDS: REMDESIVIR 100 MG in NS 250 ML IV SCH (10:58)
[2021-10-03] MEDS: SODIUM CHLORIDE 0.9% INJ 10 ML SYR IV SCH (10:58)
[2021-10-03] MEDS: QUEtiapine FUMARATE 200 MG TAB GT SCH (20:05)
[2021-10-04] VITALS (30 sets, daily range): BP systolic 91–170; BP diastolic 50–99
[2021-10-04] MEDS: INSULIN LISPRO (NovoLOG) PER UNIT SC SCH ×5 (00:07→23:43)
[2021-10-04] MEDS: PIPERACILLIN/TAZOBACTAM SOD 3.375 GM in D5W MINI-BAG PLUS 50 ML IV SCH ×5 (00:07→23:43)
[2021-10-04] MEDS: MIDAZOLAM INJ 2MG/2ML VIAL (J2250 PER 1MG) IV PRN (00:20)
[2021-10-04] MEDS: propofoL 1,000 MG in IV 1 EA IV SCH ×2 (03:15→10:11)
[2021-10-04 05:35] LABS: ABG HCO3 25.2 MEQ/L (22.0-26.0); ABG O2 SATURATION 95.6 % (95.0-99.0); ABG PARTIAL PRESSURE CO2 34.5 mmHg (35.0-45.0); ABG PARTIAL PRESSURE O2 75.1 mmHg (75.0-100.0); ABG STANDARD HCO3 26.2 MEQ/L (22.0-26.0); ABG TOTAL CO2 26.3 MEQ/L (23.0-31.0); ABG pH (ARTERIAL) 7.482 UNITS (7.350-7.450)
[2021-10-04 06:40] LABS: BASO % 0.2 % (0.0-1.0); HEMATOCRIT 29.2 % (42.0-52.0); HEMOGLOBIN 9.9 g/dl (13.5-17.5); LYMPH % 12.6 % (24.0-44.0); MEAN CORPUSCULAR HEMOGLOBIN 30.9 pg (27.0-33.0); MEAN CORPUSCULAR HGB CONC 33.9 g/dl (32.0-36.5); MEAN CORPUSCULAR VOLUME 91.3 fl (80.0-96.0); MONO # 0.6 10^3/uL (0.0-0.8); MONO % 7.7 % (2.0-8.0); NEUTROPHILS # 6.5 10^3/uL (1.5-8.5); NEUTROPHILS % 78.7 % (36.0-66.0); PLATELET COUNT, AUTOMATED 169 10^3/uL (150-450); WHITE BLOOD COUNT 8.3 10^3/uL (4.0-10.0)
[2021-10-04 07:28] LABS: ALBUMIN 2.2 GM/DL (3.2-5.2); ALT/SGPT 17 U/L (12-78); BILIRUBIN,DIRECT 0.1 MG/DL (0.0-0.2); BILIRUBIN,TOTAL 0.2 MG/DL (0.2-1.0); BLOOD UREA NITROGEN 27 MG/DL (7-18); CALCIUM LEVEL 8.2 MG/DL (8.8-10.2); CARBON DIOXIDE LEVEL 28 MEQ/L (21-32); CHLORIDE LEVEL 94 MEQ/L (98-107); CREATININE FOR GFR 1.02 MG/DL (0.70-1.30); GLOMERULAR FILTRATION RATE > 60.0 (>42); GLUCOSE, FASTING 269 MG/DL (70-100); POTASSIUM SERUM 4.4 MEQ/L (3.5-5.1); SODIUM LEVEL 128 MEQ/L (136-145); TOTAL PROTEIN 6.2 GM/DL (6.4-8.2)
[2021-10-04] MEDS: IPRATROPIUM 0.5MG/ALBUTEROL 2.5MG INH SOL UD 3ML (DUONEB) NEB SCH ×4 (07:40→19:48)
[2021-10-04] MEDS: BARICITINIB 2MG TABLET (OLUMIANT) FOR EUA PO SCH (08:27)
[2021-10-04] MEDS: CHLORHEXIDINE GLUCONATE 0.12 % 15ML UDC (PERIDEX ORAL RINSE) MT SCH (08:27)
[2021-10-04] MEDS: QUEtiapine FUMARATE 100 MG TAB GT SCH (08:27)
[2021-10-04] MEDS: VALPROIC ACID 250MG/5ML SOL ORAL SYRINGE *DRAW UP EXACT DOSE GT SCH ×2 (08:27→20:55)
[2021-10-04] MEDS: dexameTHASONE 4 MG/ML 1ML VIAL (J1100 PER 1MG) IV SCH (08:28)
[2021-10-04] MEDS: ENOXAPARIN 40MG/0.4ML SYRINGE (J1650 PER 10MG) SC SCH (08:28)
[2021-10-04] MEDS: PANTOPRAZOLE 40MG VIAL IV SCH (08:28)
[2021-10-04] MEDS: REMDESIVIR 100 MG in NS 250 ML IV SCH (10:10)
[2021-10-04] MEDS: SODIUM CHLORIDE 0.9% INJ 10 ML SYR IV SCH (10:10)
[2021-10-04 15:15] LABS: ABG BASE EXCESS 4.2 (-2.0-2.0); ABG HCO3 28.1 MEQ/L (22.0-26.0); ABG O2 SATURATION 94.4 % (95.0-99.0); ABG PARTIAL PRESSURE CO2 39.2 mmHg (35.0-45.0); ABG PARTIAL PRESSURE O2 71.4 mmHg (75.0-100.0); ABG STANDARD HCO3 28.2 MEQ/L (22.0-26.0); ABG TOTAL CO2 29.3 MEQ/L (23.0-31.0); ABG pH (ARTERIAL) 7.473 UNITS (7.350-7.450)
[2021-10-04] MEDS: QUEtiapine FUMARATE 200 MG TAB GT SCH (20:55)
[2021-10-05] VITALS (24 sets, daily range): BP systolic 111–155; BP diastolic 54–86
[2021-10-05] MEDS: INSULIN LISPRO (NovoLOG) PER UNIT SC SCH ×3 (05:15→18:50)
[2021-10-05] MEDS: PIPERACILLIN/TAZOBACTAM SOD 3.375 GM in D5W MINI-BAG PLUS 50 ML IV SCH (05:22)
[2021-10-05 06:09] LABS: ABG BASE EXCESS 1.9 (-2.0-2.0); ABG HCO3 25.8 MEQ/L (22.0-26.0); ABG O2 SATURATION 93.2 % (95.0-99.0); ABG PARTIAL PRESSURE CO2 37.6 mmHg (35.0-45.0); ABG PARTIAL PRESSURE O2 64.7 mmHg (75.0-100.0); ABG STANDARD HCO3 26.1 MEQ/L (22.0-26.0); ABG TOTAL CO2 26.9 MEQ/L (23.0-31.0); ABG pH (ARTERIAL) 7.454 UNITS (7.350-7.450)
[2021-10-05 06:17] LABS: BASO % 0.1 % (0.0-1.0); HEMATOCRIT 33.1 % (42.0-52.0); HEMOGLOBIN 10.8 g/dl (13.5-17.5); LYMPH # 1.6 10^3/uL (1.5-5.0); MEAN CORPUSCULAR HEMOGLOBIN 30.4 pg (27.0-33.0); MEAN CORPUSCULAR HGB CONC 32.6 g/dl (32.0-36.5); MEAN CORPUSCULAR VOLUME 93.2 fl (80.0-96.0); MONO # 0.8 10^3/uL (0.0-0.8); MONO % 10.1 % (2.0-8.0); NEUTROPHILS # 5.1 10^3/uL (1.5-8.5); NEUTROPHILS % 68.1 % (36.0-66.0); PLATELET COUNT, AUTOMATED 191 10^3/uL (150-450); RED BLOOD COUNT 3.55 10^6/uL (4.30-6.10); WHITE BLOOD COUNT 7.4 10^3/uL (4.0-10.0)
[2021-10-05 06:53] LABS: BLOOD UREA NITROGEN 25 MG/DL (7-18); CALCIUM LEVEL 8.6 MG/DL (8.8-10.2); CARBON DIOXIDE LEVEL 29 MEQ/L (21-32); CHLORIDE LEVEL 100 MEQ/L (98-107); CREATININE FOR GFR 0.95 MG/DL (0.70-1.30); GLOMERULAR FILTRATION RATE > 60.0 (>42); GLUCOSE, FASTING 76 MG/DL (70-100); POTASSIUM SERUM 4.5 MEQ/L (3.5-5.1); SODIUM LEVEL 133 MEQ/L (136-145)
[2021-10-05] MEDS: IPRATROPIUM 0.5MG/ALBUTEROL 2.5MG INH SOL UD 3ML (DUONEB) NEB SCH ×4 (09:43→19:33)
[2021-10-05] MEDS: VALPROIC ACID 250MG/5ML SOL ORAL SYRINGE *DRAW UP EXACT DOSE GT SCH ×2 (09:53→20:06)
[2021-10-05] MEDS: ENOXAPARIN 40MG/0.4ML SYRINGE (J1650 PER 10MG) SC SCH (09:53)
[2021-10-05] MEDS: dexameTHASONE 4 MG/ML 1ML VIAL (J1100 PER 1MG) IV SCH (09:54)
[2021-10-05] MEDS: QUEtiapine FUMARATE 100 MG TAB GT SCH (09:55)
[2021-10-05] MEDS: PANTOPRAZOLE 40MG VIAL IV SCH (09:55)
[2021-10-05] MEDS: BARICITINIB 2MG TABLET (OLUMIANT) FOR EUA PO SCH (09:55)
[2021-10-05] MEDS: SODIUM CHLORIDE 0.9% INJ 10 ML SYR IV SCH (11:39)
[2021-10-05] MEDS: PIPERACILLIN/TAZOBACTAM SOD 4.5 GM in D5W MINI-BAG PLUS 50 ML IV SCH ×2 (11:39→18:51)
[2021-10-05] MEDS: REMDESIVIR 100 MG in NS 250 ML IV SCH (11:39)
[2021-10-05 12:15] LABS: D-DIMER QUANT 481.94 ng/ml (<500)
[2021-10-05] MEDS: QUEtiapine FUMARATE 200 MG TAB GT SCH (20:06)
[2021-10-05 23:07] LABS: BODY FLUID CULTURE Not indicated. (.); LEGIONELLA ANTIGEN URINE Negative (Negative); ORGANISM ID Not indicated. (.); SPECIMEN SOURCE Urine (.); URINE STREP PNEUMONIAE ANTIGEN Negative (Negative)
[2021-10-06] VITALS (24 sets, daily range): BP systolic 116–166; BP diastolic 60–92
[2021-10-06] MEDS: PIPERACILLIN/TAZOBACTAM SOD 4.5 GM in D5W MINI-BAG PLUS 50 ML IV SCH ×5 (00:18→23:50)
[2021-10-06 05:13] LABS: BASO % 0.3 % (0.0-1.0); HEMATOCRIT 31.9 % (42.0-52.0); HEMOGLOBIN 10.6 g/dl (13.5-17.5); LYMPH # 1.1 10^3/uL (1.5-5.0); LYMPH % 15.3 % (24.0-44.0); MEAN CORPUSCULAR HEMOGLOBIN 31.1 pg (27.0-33.0); MEAN CORPUSCULAR HGB CONC 33.2 g/dl (32.0-36.5); MEAN CORPUSCULAR VOLUME 93.5 fl (80.0-96.0); MONO # 0.6 10^3/uL (0.0-0.8); MONO % 9.2 % (2.0-8.0); NEUTROPHILS # 5.1 10^3/uL (1.5-8.5); NEUTROPHILS % 73.6 % (36.0-66.0); PLATELET COUNT, AUTOMATED 184 10^3/uL (150-450); RED BLOOD COUNT 3.41 10^6/uL (4.30-6.10); WHITE BLOOD COUNT 6.9 10^3/uL (4.0-10.0)
[2021-10-06] MEDS: INSULIN LISPRO (NovoLOG) PER UNIT SC SCH ×4 (06:00→17:51)
[2021-10-06 06:02] LABS: ALBUMIN 2.3 GM/DL (3.2-5.2); ALT/SGPT 19 U/L (12-78); BILIRUBIN,DIRECT 0.1 MG/DL (0.0-0.2); BILIRUBIN,TOTAL 0.3 MG/DL (0.2-1.0); BLOOD UREA NITROGEN 30 MG/DL (7-18); CALCIUM LEVEL 8.6 MG/DL (8.8-10.2); CARBON DIOXIDE LEVEL 27 MEQ/L (21-32); CHLORIDE LEVEL 103 MEQ/L (98-107); CREATININE FOR GFR 0.99 MG/DL (0.70-1.30); GLOMERULAR FILTRATION RATE > 60.0 (>42); GLUCOSE, FASTING 102 MG/DL (70-100); MAGNESIUM LEVEL 2.2 MG/DL (1.8-2.4); POTASSIUM SERUM 4.4 MEQ/L (3.5-5.1); SODIUM LEVEL 138 MEQ/L (136-145); TOTAL PROTEIN 6.4 GM/DL (6.4-8.2)
[2021-10-06] MEDS: IPRATROPIUM 0.5MG/ALBUTEROL 2.5MG INH SOL UD 3ML (DUONEB) NEB SCH ×4 (07:28→19:31)
[2021-10-06] MEDS: VALPROIC ACID 250MG/5ML SOL ORAL SYRINGE *DRAW UP EXACT DOSE GT SCH ×2 (08:20→20:02)
[2021-10-06] MEDS: BARICITINIB 2MG TABLET (OLUMIANT) FOR EUA PO SCH (08:20)
[2021-10-06] MEDS: ENOXAPARIN 40MG/0.4ML SYRINGE (J1650 PER 10MG) SC SCH (08:20)
[2021-10-06] MEDS: PANTOPRAZOLE 40MG VIAL IV SCH (08:21)
[2021-10-06] MEDS: dexameTHASONE 4 MG/ML 1ML VIAL (J1100 PER 1MG) IV SCH (08:21)
[2021-10-06] MEDS: QUEtiapine FUMARATE 100 MG TAB GT SCH (08:21)
[2021-10-06] MEDS: REMDESIVIR 100 MG in NS 250 ML IV SCH (10:31)
[2021-10-06] MEDS: SODIUM CHLORIDE 0.9% INJ 10 ML SYR IV SCH (10:31)
[2021-10-06] MEDS ORDERED: GLUCOSE 4GM CHEW TABLET PO PRN (12:05)
[2021-10-06] MEDS ORDERED: GLUCAGON INJ 1MG VIAL SC PRN (12:05)
[2021-10-06] MEDS ORDERED: DEXTROSE 50% 50 ML SYRINGE IV PRN (12:05)
[2021-10-06 13:44] LABS: ABG BASE EXCESS 1.3 (-2.0-2.0); ABG HCO3 25.5 MEQ/L (22.0-26.0); ABG O2 SATURATION 95.5 % (95.0-99.0); ABG PARTIAL PRESSURE CO2 39.1 mmHg (35.0-45.0); ABG PARTIAL PRESSURE O2 79.8 mmHg (75.0-100.0); ABG STANDARD HCO3 25.6 MEQ/L (22.0-26.0); ABG TOTAL CO2 26.7 MEQ/L (23.0-31.0); ABG pH (ARTERIAL) 7.433 UNITS (7.350-7.450)
[2021-10-06] MEDS: QUEtiapine FUMARATE 200 MG TAB GT SCH (20:02)
[2021-10-07] VITALS (24 sets, daily range): BP systolic 105–150; BP diastolic 55–79
[2021-10-07 04:37] LABS: HEMATOCRIT 32.9 % (42.0-52.0); HEMOGLOBIN 10.8 g/dl (13.5-17.5); MEAN CORPUSCULAR HEMOGLOBIN 30.7 pg (27.0-33.0); MEAN CORPUSCULAR HGB CONC 32.8 g/dl (32.0-36.5); MEAN CORPUSCULAR VOLUME 93.5 fl (80.0-96.0); PLATELET COUNT, AUTOMATED 179 10^3/uL (150-450); RED BLOOD COUNT 3.52 10^6/uL (4.30-6.10); WHITE BLOOD COUNT 6.4 10^3/uL (4.0-10.0)
[2021-10-07 04:53] LABS: ANISOCYTOSIS 1+; ATYPICAL LYMPH 3 % (0-5); LYMPHOCYTES 14 % (16-44); METAMYELOCYTES 3 % (0-0); MONOCYTES 6 % (0-5); NEUTROPHILS 74 % (28-66); PLATELET ESTIMATE NORMAL (NORMAL); POIKILOCYTOSIS 1+
[2021-10-07 04:54] LABS: POLYCHROMASIA 1+
[2021-10-07 05:08] LABS: BLOOD UREA NITROGEN 39 MG/DL (7-18); CALCIUM LEVEL 8.6 MG/DL (8.8-10.2); CARBON DIOXIDE LEVEL 28 MEQ/L (21-32); CHLORIDE LEVEL 103 MEQ/L (98-107); GLOMERULAR FILTRATION RATE > 60.0 (>42); GLUCOSE, FASTING 105 MG/DL (70-100); MAGNESIUM LEVEL 2.3 MG/DL (1.8-2.4); POTASSIUM SERUM 4.2 MEQ/L (3.5-5.1); SODIUM LEVEL 136 MEQ/L (136-145)
[2021-10-07] MEDS: INSULIN LISPRO (NovoLOG) PER UNIT SC SCH ×4 (05:11→18:00)
[2021-10-07] MEDS: PIPERACILLIN/TAZOBACTAM SOD 4.5 GM in D5W MINI-BAG PLUS 50 ML IV SCH ×2 (05:49→11:08)
[2021-10-07] MEDS: VALPROIC ACID 250MG/5ML SOL ORAL SYRINGE *DRAW UP EXACT DOSE GT SCH ×2 (08:19→20:14)
[2021-10-07] MEDS: ENOXAPARIN 40MG/0.4ML SYRINGE (J1650 PER 10MG) SC SCH (08:21)
[2021-10-07] MEDS: BARICITINIB 2MG TABLET (OLUMIANT) FOR EUA PO SCH (08:21)
[2021-10-07] MEDS: dexameTHASONE 4 MG/ML 1ML VIAL (J1100 PER 1MG) IV SCH (08:22)
[2021-10-07] MEDS: QUEtiapine FUMARATE 100 MG TAB GT SCH (08:22)
[2021-10-07] MEDS: PANTOPRAZOLE 40MG VIAL IV SCH (08:22)
[2021-10-07] MEDS: IPRATROPIUM 0.5MG/ALBUTEROL 2.5MG INH SOL UD 3ML (DUONEB) NEB SCH ×4 (08:31→19:40)
[2021-10-07] MEDS ORDERED: FUROSEMIDE 40MG/4ML VIAL (J1940) IV ONE (14:00)
[2021-10-07] MEDS: REMDESIVIR 100 MG in NS 250 ML IV SCH (16:00)
[2021-10-07] MEDS: QUEtiapine FUMARATE 200 MG TAB GT SCH (20:13)
[2021-10-08] VITALS (24 sets, daily range): BP systolic 118–158; BP diastolic 55–86
[2021-10-08 04:20] LABS: HEMATOCRIT 34.6 % (42.0-52.0); HEMOGLOBIN 11.3 g/dl (13.5-17.5); MEAN CORPUSCULAR HGB CONC 32.7 g/dl (32.0-36.5); MEAN CORPUSCULAR VOLUME 95.1 fl (80.0-96.0); PLATELET COUNT, AUTOMATED 237 10^3/uL (150-450); RED BLOOD COUNT 3.64 10^6/uL (4.30-6.10); WHITE BLOOD COUNT 8.2 10^3/uL (4.0-10.0)
[2021-10-08 04:38] LABS: LYMPHOCYTES 19 % (16-44); METAMYELOCYTES 2 % (0-0); MONOCYTES 4 % (0-5); NEUTROPHILS 74 % (28-66); PLATELET ESTIMATE NORMAL (NORMAL)
[2021-10-08 04:54] LABS: ALBUMIN 2.4 GM/DL (3.2-5.2); ALT/SGPT 16 U/L (12-78); BILIRUBIN,DIRECT 0.3 MG/DL (0.0-0.2); BILIRUBIN,TOTAL 0.3 MG/DL (0.2-1.0); BLOOD UREA NITROGEN 53 MG/DL (7-18); CALCIUM LEVEL 8.7 MG/DL (8.8-10.2); CARBON DIOXIDE LEVEL 35 MEQ/L (21-32); CHLORIDE LEVEL 104 MEQ/L (98-107); CREATININE FOR GFR 1.07 MG/DL (0.70-1.30); GLOMERULAR FILTRATION RATE > 60.0 (>42); GLUCOSE, FASTING 101 MG/DL (70-100); MAGNESIUM LEVEL 2.4 MG/DL (1.8-2.4); POTASSIUM SERUM 3.8 MEQ/L (3.5-5.1); SODIUM LEVEL 143 MEQ/L (136-145); TOTAL PROTEIN 6.5 GM/DL (6.4-8.2)
[2021-10-08] MEDS: INSULIN LISPRO (NovoLOG) PER UNIT SC SCH ×4 (05:27→18:00)
[2021-10-08] MEDS: IPRATROPIUM 0.5MG/ALBUTEROL 2.5MG INH SOL UD 3ML (DUONEB) NEB SCH ×4 (08:24→19:59)
[2021-10-08] MEDS: BARICITINIB 2MG TABLET (OLUMIANT) FOR EUA PO SCH (08:25)
[2021-10-08] MEDS: QUEtiapine FUMARATE 100 MG TAB GT SCH (08:25)
[2021-10-08] MEDS: VALPROIC ACID 250MG/5ML SOL ORAL SYRINGE *DRAW UP EXACT DOSE GT SCH ×2 (08:25→20:32)
[2021-10-08] MEDS: ENOXAPARIN 40MG/0.4ML SYRINGE (J1650 PER 10MG) SC SCH (08:26)
[2021-10-08] MEDS: PANTOPRAZOLE 40MG VIAL IV SCH (08:26)
[2021-10-08] MEDS: dexameTHASONE 4 MG/ML 1ML VIAL (J1100 PER 1MG) IV SCH (08:26)
[2021-10-08] MEDS ORDERED: FUROSEMIDE 40MG/4ML VIAL (J1940) IV ONE (09:20)
[2021-10-08] MEDS: REMDESIVIR 100 MG in NS 250 ML IV SCH (16:36)
[2021-10-08] MEDS: QUEtiapine FUMARATE 200 MG TAB GT SCH (20:32)
[2021-10-08 20:39] LABS: BLOOD UREA NITROGEN 64 MG/DL (7-18); CARBON DIOXIDE LEVEL 28 MEQ/L (21-32); CHLORIDE LEVEL 107 MEQ/L (98-107); CREATININE FOR GFR 1.08 MG/DL (0.70-1.30); GLOMERULAR FILTRATION RATE > 60.0 (>42); GLUCOSE, FASTING 130 MG/DL (70-100); MAGNESIUM LEVEL 2.5 MG/DL (1.8-2.4); POTASSIUM SERUM 4.1 MEQ/L (3.5-5.1); SODIUM LEVEL 141 MEQ/L (136-145)
[2021-10-09] VITALS (17 sets, daily range): BP systolic 114–192; BP diastolic 61–93; O2SAT 92–93
[2021-10-09 04:30] LABS: HEMATOCRIT 35.8 % (42.0-52.0); HEMOGLOBIN 11.4 g/dl (13.5-17.5); MEAN CORPUSCULAR HEMOGLOBIN 30.8 pg (27.0-33.0); MEAN CORPUSCULAR HGB CONC 31.8 g/dl (32.0-36.5); MEAN CORPUSCULAR VOLUME 96.8 fl (80.0-96.0); PLATELET COUNT, AUTOMATED 325 10^3/uL (150-450); WHITE BLOOD COUNT 7.9 10^3/uL (4.0-10.0)
[2021-10-09 05:06] LABS: BLOOD UREA NITROGEN 67 MG/DL (7-18); CARBON DIOXIDE LEVEL 27 MEQ/L (21-32); CHLORIDE LEVEL 108 MEQ/L (98-107); GLOMERULAR FILTRATION RATE > 60.0 (>42); GLUCOSE, FASTING 95 MG/DL (70-100); MAGNESIUM LEVEL 2.4 MG/DL (1.8-2.4); POTASSIUM SERUM 3.9 MEQ/L (3.5-5.1); SODIUM LEVEL 143 MEQ/L (136-145)
[2021-10-09] MEDS: INSULIN LISPRO (NovoLOG) PER UNIT SC SCH ×4 (05:13→18:04)
[2021-10-09 06:20] LABS: ATYPICAL LYMPH 4 % (0-5); LYMPHOCYTES 25 % (16-44); METAMYELOCYTES 2 % (0-0); MONOCYTES 8 % (0-5); NEUTROPHILS 56 % (28-66)
[2021-10-09 06:21] LABS: HYPOCHROMASIA 1+; PLATELET CLUMPS MODERATE AMT; PLATELET ESTIMATE NORMAL (NORMAL)
[2021-10-09] MEDS: IPRATROPIUM 0.5MG/ALBUTEROL 2.5MG INH SOL UD 3ML (DUONEB) NEB SCH ×4 (07:58→20:19)
[2021-10-09] MEDS: dexameTHASONE 4 MG/ML 1ML VIAL (J1100 PER 1MG) IV SCH (09:14)
[2021-10-09] MEDS: PANTOPRAZOLE 40MG VIAL IV SCH (09:14)
[2021-10-09] MEDS: VALPROIC ACID 250MG/5ML SOL ORAL SYRINGE *DRAW UP EXACT DOSE GT SCH ×2 (09:15→20:45)
[2021-10-09] MEDS: BARICITINIB 2MG TABLET (OLUMIANT) FOR EUA PO SCH (09:15)
[2021-10-09] MEDS: QUEtiapine FUMARATE 100 MG TAB GT SCH (09:15)
[2021-10-09] MEDS: ENOXAPARIN 40MG/0.4ML SYRINGE (J1650 PER 10MG) SC SCH (09:16)
[2021-10-09] MEDS ORDERED: LIDOCAINE 1% MDV 20ML VIAL As Ordered ONE (13:51)
[2021-10-09] MEDS: SODIUM CHLORIDE 0.9% INJ 10 ML SYR IV SCH (18:04)
[2021-10-09] MEDS: REMDESIVIR 100 MG in NS 250 ML IV SCH (18:04)
[2021-10-09] MEDS: QUEtiapine FUMARATE 200 MG TAB GT SCH (20:44)
[2021-10-10] MEDS: INSULIN LISPRO (NovoLOG) PER UNIT SC SCH ×4 (00:08→17:57)
[2021-10-10 04:00] VITALS: BP 143/70
[2021-10-10] MEDS: SODIUM CHLORIDE 0.9% INJ 10 ML SYR IV SCH ×2 (05:55→17:58)
[2021-10-10 06:16] LABS: HEMATOCRIT 36.1 % (42.0-52.0); HEMOGLOBIN 11.3 g/dl (13.5-17.5); MEAN CORPUSCULAR HEMOGLOBIN 30.5 pg (27.0-33.0); MEAN CORPUSCULAR HGB CONC 31.3 g/dl (32.0-36.5); MEAN CORPUSCULAR VOLUME 97.3 fl (80.0-96.0); PLATELET COUNT, AUTOMATED 388 10^3/uL (150-450); RED BLOOD COUNT 3.71 10^6/uL (4.30-6.10); WHITE BLOOD COUNT 9.6 10^3/uL (4.0-10.0)
[2021-10-10 06:45] LABS: BLOOD UREA NITROGEN 65 MG/DL (7-18); CALCIUM LEVEL 9.5 MG/DL (8.8-10.2); CARBON DIOXIDE LEVEL 27 MEQ/L (21-32); CHLORIDE LEVEL 114 MEQ/L (98-107); CREATININE FOR GFR 0.95 MG/DL (0.70-1.30); GLOMERULAR FILTRATION RATE > 60.0 (>42); GLUCOSE, FASTING 112 MG/DL (70-100); MAGNESIUM LEVEL 2.4 MG/DL (1.8-2.4); SODIUM LEVEL 145 MEQ/L (136-145)
[2021-10-10 06:51] LABS: ATYPICAL LYMPH 1 % (0-5); LYMPHOCYTES 18 % (16-44); METAMYELOCYTES 3 % (0-0); MONOCYTES 6 % (0-5); MYELOCYTES 1 % (0-0); NEUTROPHILS 66 % (28-66); PLASMA CELL 2 % (0-0)
[2021-10-10 06:54] LABS: ANISOCYTOSIS 1+; PLATELET ESTIMATE NORMAL (NORMAL); POLYCHROMASIA 1+
[2021-10-10] MEDS: QUEtiapine FUMARATE 100 MG TAB GT SCH (09:06)
[2021-10-10] MEDS: VALPROIC ACID 250MG/5ML SOL ORAL SYRINGE *DRAW UP EXACT DOSE GT SCH ×2 (09:07→20:22)
[2021-10-10] MEDS: ENOXAPARIN 40MG/0.4ML SYRINGE (J1650 PER 10MG) SC SCH (09:07)
[2021-10-10] MEDS: BARICITINIB 2MG TABLET (OLUMIANT) FOR EUA PO SCH (09:07)
[2021-10-10] MEDS: PANTOPRAZOLE 40MG VIAL IV SCH (09:07)
[2021-10-10] MEDS: dexameTHASONE 4 MG/ML 1ML VIAL (J1100 PER 1MG) IV SCH (09:07)
[2021-10-10] MEDS: IPRATROPIUM 0.5MG/ALBUTEROL 2.5MG INH SOL UD 3ML (DUONEB) NEB SCH ×4 (10:00→20:57)
[2021-10-10 12:00] VITALS: BP 129/72
[2021-10-10] MEDS: REMDESIVIR 100 MG in NS 250 ML IV SCH (16:39)
[2021-10-10] MEDS: QUEtiapine FUMARATE 200 MG TAB GT SCH (20:22)
[2021-10-11] MEDS: SODIUM CHLORIDE 0.9% INJ 10 ML SYR IV PRN (05:39)
[2021-10-11] MEDS: INSULIN LISPRO (NovoLOG) PER UNIT SC SCH ×4 (05:39→17:02)
[2021-10-11] MEDS: SODIUM CHLORIDE 0.9% INJ 10 ML SYR IV SCH ×2 (05:39→17:02)
[2021-10-11 05:40] VITALS: BP_SYST 138; BP_SYST 155; BP_DIAS 70; BP_DIAS 71
[2021-10-11 06:58] VITALS: BP 150/87
[2021-10-11] MEDS: IPRATROPIUM 0.5MG/ALBUTEROL 2.5MG INH SOL UD 3ML (DUONEB) NEB SCH ×4 (07:49→19:44)
[2021-10-11] MEDS: QUEtiapine FUMARATE 100 MG TAB GT SCH (09:39)
[2021-10-11] MEDS: dexameTHASONE 4 MG/ML 1ML VIAL (J1100 PER 1MG) IV SCH (09:40)
[2021-10-11] MEDS: BARICITINIB 2MG TABLET (OLUMIANT) FOR EUA PO SCH (09:40)
[2021-10-11] MEDS: VALPROIC ACID 250MG/5ML SOL ORAL SYRINGE *DRAW UP EXACT DOSE GT SCH ×2 (09:41→21:13)
[2021-10-11] MEDS: ENOXAPARIN 40MG/0.4ML SYRINGE (J1650 PER 10MG) SC SCH (09:41)
[2021-10-11] MEDS: PANTOPRAZOLE 40MG VIAL IV SCH (09:41)
[2021-10-11 10:48] LABS: HEMATOCRIT 35.7 % (42.0-52.0); HEMOGLOBIN 11.3 g/dl (13.5-17.5); MEAN CORPUSCULAR HEMOGLOBIN 30.6 pg (27.0-33.0); MEAN CORPUSCULAR HGB CONC 31.7 g/dl (32.0-36.5); MEAN CORPUSCULAR VOLUME 96.7 fl (80.0-96.0); PLATELET COUNT, AUTOMATED 430 10^3/uL (150-450); RED BLOOD COUNT 3.69 10^6/uL (4.30-6.10); WHITE BLOOD COUNT 11.5 10^3/uL (4.0-10.0)
[2021-10-11 11:15] LABS: BLOOD UREA NITROGEN 67 MG/DL (7-18); CARBON DIOXIDE LEVEL 25 MEQ/L (21-32); CHLORIDE LEVEL 115 MEQ/L (98-107); GLOMERULAR FILTRATION RATE > 60.0 (>42); GLUCOSE, FASTING 116 MG/DL (70-100); MAGNESIUM LEVEL 2.3 MG/DL (1.8-2.4); POTASSIUM SERUM 3.6 MEQ/L (3.5-5.1); SODIUM LEVEL 145 MEQ/L (136-145)
[2021-10-11 11:33] LABS: ATYPICAL LYMPH 1 % (0-5); LYMPHOCYTES 16 % (16-44); METAMYELOCYTES 2 % (0-0); MONOCYTES 10 % (0-5); MYELOCYTES 2 % (0-0); NEUTROPHILS 66 % (28-66); PLASMA CELL 1 % (0-0)
[2021-10-11 11:34] LABS: ANISOCYTOSIS 1+
[2021-10-11 11:35] LABS: PLATELET CLUMPS SMALL AMT; PLATELET ESTIMATE INCREASED (NORMAL)
[2021-10-11 12:42] VITALS: O2SAT 94
[2021-10-11 12:43] LABS: C REACTIVE PROTEIN QUANTITATIV 4.41 MG/DL (0.00-0.30)
[2021-10-11 12:43] LABS: C REACTIVE PROTEIN QUANTITATIV 9.82 MG/DL (0.00-0.30)
[2021-10-11 12:51] LABS: BACTERIA, URINE SMALL AMOUNT; HYALINE CAST, URINE 0-1 /lpf (0-1); SQUAMOUS EPITHELIAL CELL URINE NONE SEEN /hpf (SMALL AMT)
[2021-10-11] MEDS: REMDESIVIR 100 MG in NS 250 ML IV SCH (17:02)
[2021-10-11] MEDS: QUEtiapine FUMARATE 200 MG TAB GT SCH (21:12)
[2021-10-12] MEDS: SODIUM CHLORIDE 0.9% INJ 10 ML SYR IV SCH ×2 (05:30→18:10)
[2021-10-12] MEDS: INSULIN LISPRO (NovoLOG) PER UNIT SC SCH ×4 (05:56→18:09)
[2021-10-12 06:00] VITALS: BP 161/76
[2021-10-12] MEDS: IPRATROPIUM 0.5MG/ALBUTEROL 2.5MG INH SOL UD 3ML (DUONEB) NEB SCH ×4 (07:23→19:48)
[2021-10-12 08:38] LABS: BASO # 0.1 10^3/uL (0.0-0.2); BASO % 0.5 % (0.0-1.0); HEMOGLOBIN 11.3 g/dl (13.5-17.5); LYMPH # 2.2 10^3/uL (1.5-5.0); LYMPH % 12.7 % (24.0-44.0); MEAN CORPUSCULAR HEMOGLOBIN 30.9 pg (27.0-33.0); MEAN CORPUSCULAR HGB CONC 32.3 g/dl (32.0-36.5); MEAN CORPUSCULAR VOLUME 95.6 fl (80.0-96.0); MONO # 1.3 10^3/uL (0.0-0.8); MONO % 7.6 % (2.0-8.0); NEUTROPHILS # 13.1 10^3/uL (1.5-8.5); NEUTROPHILS % 74.9 % (36.0-66.0); RED BLOOD COUNT 3.66 10^6/uL (4.30-6.10); WHITE BLOOD COUNT 17.6 10^3/uL (4.0-10.0)
[2021-10-12 08:45] LABS: PLATELET COUNT, AUTOMATED 534 10^3/uL (150-450)
[2021-10-12 09:14] LABS: BLOOD UREA NITROGEN 66 MG/DL (7-18); CALCIUM LEVEL 8.8 MG/DL (8.8-10.2); CARBON DIOXIDE LEVEL 26 MEQ/L (21-32); CHLORIDE LEVEL 112 MEQ/L (98-107); CREATININE FOR GFR 0.99 MG/DL (0.70-1.30); GLOMERULAR FILTRATION RATE > 60.0 (>42); GLUCOSE, FASTING 73 MG/DL (70-100); POTASSIUM SERUM 4.3 MEQ/L (3.5-5.1); SODIUM LEVEL 143 MEQ/L (136-145)
[2021-10-12] MEDS: QUEtiapine FUMARATE 100 MG TAB GT SCH (10:01)
[2021-10-12] MEDS: predniSONE 10 MG TAB JT SCH (10:01)
[2021-10-12] MEDS: VALPROIC ACID 250MG/5ML SOL ORAL SYRINGE *DRAW UP EXACT DOSE GT SCH ×2 (10:02→22:04)
[2021-10-12] MEDS: ENOXAPARIN 40MG/0.4ML SYRINGE (J1650 PER 10MG) SC SCH (10:10)
[2021-10-12] MEDS: OMEPRAZOLE SUSPENSION 20MG 10ML ORAL SYRINGE GT SCH (11:26)
[2021-10-12] MEDS: QUEtiapine FUMARATE 200 MG TAB GT SCH (22:04)
[2021-10-12 22:43] LABS: VENOUS BASE EXCESS 2.4 (-2.0-2.0); VENOUS HCO3 26.9 MEQ/L (23.0-27.0); VENOUS O2 SATURATION 97.6 % (60.0-80.0); VENOUS PARTIAL PRESSURE CO2 41.7 mmHg (38.0-50.0); VENOUS PARTIAL PRESSURE O2 101.3 mmHg (30.0-50.0); VENOUS PH 7.428 UNITS (7.330-7.430); VENOUS STANDARD HCO3 26.6 MEQ/L; VENOUS TOTAL CO2 28.2 MEQ/L (24.0-28.0)
[2021-10-13] VITALS (22 sets, daily range): BP systolic 119–165; BP diastolic 76–120; O2SAT 90–92
[2021-10-13] MEDS: INSULIN LISPRO (NovoLOG) PER UNIT SC SCH ×5 (00:34→23:42)
[2021-10-13] MEDS: IPRATROPIUM 0.5MG/ALBUTEROL 2.5MG INH SOL UD 3ML (DUONEB) NEB SCH ×4 (03:22→20:54)
[2021-10-13] MEDS ORDERED: ISOVUE-370 76% 100ML VIAL As Ordered ONE (04:30)
[2021-10-13] MEDS ORDERED: FUROSEMIDE 20MG/2ML VIAL (J1940) IV ONE (05:30)
[2021-10-13] MEDS ORDERED: SODIUM CHLORIDE 0.9% 1000ML IV ONE (05:55)
[2021-10-13] MEDS: SODIUM CHLORIDE 0.9% INJ 10 ML SYR IV SCH ×2 (06:46→18:47)
[2021-10-13 07:04] LABS: BASO % 0.4 % (0.0-1.0); EOS % 0.2 % (0.0-3.0); HEMATOCRIT 43.9 % (42.0-52.0); LYMPH # 0.8 10^3/uL (1.5-5.0); LYMPH % 7.8 % (24.0-44.0); MEAN CORPUSCULAR HEMOGLOBIN 30.9 pg (27.0-33.0); MEAN CORPUSCULAR HGB CONC 31.2 g/dl (32.0-36.5); MEAN CORPUSCULAR VOLUME 98.9 fl (80.0-96.0); MONO # 0.1 10^3/uL (0.0-0.8); MONO % 1.2 % (2.0-8.0); NEUTROPHILS # 8.9 10^3/uL (1.5-8.5); NEUTROPHILS % 88.8 % (36.0-66.0); PLATELET COUNT, AUTOMATED 507 10^3/uL (150-450); RED BLOOD COUNT 4.44 10^6/uL (4.30-6.10); WHITE BLOOD COUNT 10.1 10^3/uL (4.0-10.0)
[2021-10-13 07:29] LABS: HEMOGLOBIN 13.7 g/dl (13.5-17.5)
[2021-10-13 07:32] LABS: BLOOD UREA NITROGEN 56 MG/DL (7-18); CALCIUM LEVEL 9.3 MG/DL (8.8-10.2); CARBON DIOXIDE LEVEL 25 MEQ/L (21-32); CHLORIDE LEVEL 109 MEQ/L (98-107); CREATININE FOR GFR 1.08 MG/DL (0.70-1.30); GLOMERULAR FILTRATION RATE > 60.0 (>42); GLUCOSE, FASTING 90 MG/DL (70-100); MAGNESIUM LEVEL 2.4 MG/DL (1.8-2.4); NT-PRO BNP 279 PG/ML (<125); POTASSIUM SERUM 4.1 MEQ/L (3.5-5.1); SODIUM LEVEL 141 MEQ/L (136-145)
[2021-10-13] MEDS: ACETYLCYSTEINE 20% 4 ML VIAL (200MG/ML) INH SCH ×2 (08:22→20:53)
[2021-10-13] MEDS: QUEtiapine FUMARATE 100 MG TAB GT SCH (08:56)
[2021-10-13] MEDS: VALPROIC ACID 250MG/5ML SOL ORAL SYRINGE *DRAW UP EXACT DOSE GT SCH ×2 (08:56→20:33)
[2021-10-13] MEDS: OMEPRAZOLE SUSPENSION 20MG 10ML ORAL SYRINGE GT SCH (08:56)
[2021-10-13] MEDS: predniSONE 10 MG TAB JT SCH (08:56)
[2021-10-13] MEDS: ENOXAPARIN 40MG/0.4ML SYRINGE (J1650 PER 10MG) SC SCH (08:56)
[2021-10-13] MEDS ORDERED: guaiFENesin ER 600 MG TAB PO SCH (09:00)
[2021-10-13 10:19] LABS: ABG BASE EXCESS 5.7 (-2.0-2.0); ABG HCO3 29.3 MEQ/L (22.0-26.0); ABG O2 SATURATION 96.7 % (95.0-99.0); ABG PARTIAL PRESSURE CO2 39.1 mmHg (35.0-45.0); ABG STANDARD HCO3 29.6 MEQ/L (22.0-26.0); ABG TOTAL CO2 30.5 MEQ/L (23.0-31.0); ABG pH (ARTERIAL) 7.493 UNITS (7.350-7.450)
[2021-10-13] MEDS: QUEtiapine FUMARATE 200 MG TAB GT SCH (20:33)
[2021-10-14] VITALS (19 sets, daily range): BP systolic 106–145; BP diastolic 67–87
[2021-10-14] MEDS ORDERED: ALBUTEROL SULFATE 2.5 MG/0.5 ML INH NEB SOLN NEB PRN (02:40)
[2021-10-14] MEDS: IPRATROPIUM 0.5MG/ALBUTEROL 2.5MG INH SOL UD 3ML (DUONEB) NEB SCH ×5 (04:18→19:15)
[2021-10-14] MEDS: INSULIN LISPRO (NovoLOG) PER UNIT SC SCH ×3 (05:13→17:54)
[2021-10-14] MEDS: SODIUM CHLORIDE 0.9% INJ 10 ML SYR IV SCH ×2 (05:25→17:54)
[2021-10-14 05:56] LABS: HEMOGLOBIN 12.2 g/dl (13.5-17.5); MEAN CORPUSCULAR HEMOGLOBIN 30.5 pg (27.0-33.0); MEAN CORPUSCULAR HGB CONC 31.3 g/dl (32.0-36.5); MEAN CORPUSCULAR VOLUME 97.5 fl (80.0-96.0); PLATELET COUNT, AUTOMATED 551 10^3/uL (150-450); WHITE BLOOD COUNT 15.1 10^3/uL (4.0-10.0)
[2021-10-14 06:19] LABS: BLOOD UREA NITROGEN 61 MG/DL (7-18); CALCIUM LEVEL 9.5 MG/DL (8.8-10.2); CARBON DIOXIDE LEVEL 30 MEQ/L (21-32); CHLORIDE LEVEL 112 MEQ/L (98-107); CREATININE FOR GFR 1.15 MG/DL (0.70-1.30); GLOMERULAR FILTRATION RATE > 60.0 (>42); GLUCOSE, FASTING 95 MG/DL (70-100); POTASSIUM SERUM 4.1 MEQ/L (3.5-5.1); SODIUM LEVEL 146 MEQ/L (136-145)
[2021-10-14] MEDS: ACETYLCYSTEINE 20% 4 ML VIAL (200MG/ML) INH SCH ×2 (06:23→19:16)
[2021-10-14] MEDS: OMEPRAZOLE SUSPENSION 20MG 10ML ORAL SYRINGE GT SCH (08:33)
[2021-10-14] MEDS: VALPROIC ACID 250MG/5ML SOL ORAL SYRINGE *DRAW UP EXACT DOSE GT SCH ×2 (08:33→20:49)
[2021-10-14] MEDS: ENOXAPARIN 40MG/0.4ML SYRINGE (J1650 PER 10MG) SC SCH (08:33)
[2021-10-14] MEDS: QUEtiapine FUMARATE 100 MG TAB GT SCH (08:33)
[2021-10-14] MEDS: predniSONE 10 MG TAB JT SCH (08:33)
[2021-10-14] MEDS: QUEtiapine FUMARATE 200 MG TAB GT SCH (20:49)
[2021-10-14] MEDS: ACETAMINOPHEN 325 MG/10.15 ML UDC GT PRN (20:50)
[2021-10-15] VITALS (19 sets, daily range): BP systolic 105–140; BP diastolic 63–95
[2021-10-15] MEDS: IPRATROPIUM 0.5MG/ALBUTEROL 2.5MG INH SOL UD 3ML (DUONEB) NEB SCH ×3 (00:49→07:44)
[2021-10-15 04:42] LABS: HEMATOCRIT 39.5 % (42.0-52.0); HEMOGLOBIN 12.1 g/dl (13.5-17.5); MEAN CORPUSCULAR HEMOGLOBIN 30.6 pg (27.0-33.0); MEAN CORPUSCULAR HGB CONC 30.6 g/dl (32.0-36.5); MEAN CORPUSCULAR VOLUME 99.7 fl (80.0-96.0); PLATELET COUNT, AUTOMATED 507 10^3/uL (150-450); RED BLOOD COUNT 3.96 10^6/uL (4.30-6.10); WHITE BLOOD COUNT 10.1 10^3/uL (4.0-10.0)
[2021-10-15 05:05] LABS: CALCIUM LEVEL 9.6 MG/DL (8.8-10.2); CREATININE FOR GFR 1.3 MG/DL (0.70-1.30); GLOMERULAR FILTRATION RATE 57.9 (>42); POTASSIUM SERUM 3.9 MEQ/L (3.5-5.1)
[2021-10-15] MEDS: INSULIN LISPRO (NovoLOG) PER UNIT SC SCH ×4 (06:00→18:23)
[2021-10-15] MEDS: SODIUM CHLORIDE 0.9% INJ 10 ML SYR IV SCH ×2 (06:47→18:24)
[2021-10-15] MEDS: ACETYLCYSTEINE 20% 4 ML VIAL (200MG/ML) INH SCH (07:45)
[2021-10-15] MEDS: OMEPRAZOLE SUSPENSION 20MG 10ML ORAL SYRINGE GT SCH (09:30)
[2021-10-15] MEDS: VALPROIC ACID 250MG/5ML SOL ORAL SYRINGE *DRAW UP EXACT DOSE GT SCH ×2 (09:30→21:01)
[2021-10-15] MEDS: ENOXAPARIN 40MG/0.4ML SYRINGE (J1650 PER 10MG) SC SCH (09:30)
[2021-10-15] MEDS: QUEtiapine FUMARATE 100 MG TAB GT SCH (09:31)
[2021-10-15] MEDS: predniSONE 10 MG TAB JT SCH (09:32)
[2021-10-15] MEDS: SODIUM CHLORIDE HYPERTONIC 3% 15ML NEB SOL INH SCH ×4 (11:59→23:47)
[2021-10-15] MEDS: ALBUTEROL SULFATE 2.5 MG/0.5 ML INH NEB SOLN NEB SCH ×4 (11:59→23:47)
[2021-10-15] MEDS: D5W 1,000 ML IV SCH (12:00)
[2021-10-15] MEDS: ACETAMINOPHEN 325 MG/10.15 ML UDC GT PRN (21:01)
[2021-10-15] MEDS: QUEtiapine FUMARATE 200 MG TAB GT SCH (21:01)
[2021-10-16] VITALS (27 sets, daily range): BP systolic 112–171; BP diastolic 63–93; O2SAT 93–98
[2021-10-16] MEDS: D5W 1,000 ML IV SCH ×2 (01:15→14:30)
[2021-10-16] MEDS: ALBUTEROL SULFATE 2.5 MG/0.5 ML INH NEB SOLN NEB SCH ×6 (03:44→23:30)
[2021-10-16] MEDS: SODIUM CHLORIDE HYPERTONIC 3% 15ML NEB SOL INH SCH ×6 (03:44→23:30)
[2021-10-16 04:22] LABS: HEMATOCRIT 37.9 % (42.0-52.0); HEMOGLOBIN 11.7 g/dl (13.5-17.5); MEAN CORPUSCULAR HEMOGLOBIN 31.2 pg (27.0-33.0); MEAN CORPUSCULAR HGB CONC 30.9 g/dl (32.0-36.5); MEAN CORPUSCULAR VOLUME 101.1 fl (80.0-96.0); PLATELET COUNT, AUTOMATED 472 10^3/uL (150-450); RED BLOOD COUNT 3.75 10^6/uL (4.30-6.10); WHITE BLOOD COUNT 7.3 10^3/uL (4.0-10.0)
[2021-10-16 05:06] LABS: BLOOD UREA NITROGEN 52 MG/DL (7-18); CALCIUM LEVEL 9.3 MG/DL (8.8-10.2); CARBON DIOXIDE LEVEL 32 MEQ/L (21-32); CHLORIDE LEVEL 111 MEQ/L (98-107); CREATININE FOR GFR 1.23 MG/DL (0.70-1.30); GLOMERULAR FILTRATION RATE > 60.0 (>42); GLUCOSE, FASTING 104 MG/DL (70-100); POTASSIUM SERUM 3.9 MEQ/L (3.5-5.1); SODIUM LEVEL 146 MEQ/L (136-145)
[2021-10-16] MEDS: INSULIN LISPRO (NovoLOG) PER UNIT SC SCH ×4 (05:09→18:00)
[2021-10-16] MEDS: SODIUM CHLORIDE 0.9% INJ 10 ML SYR IV SCH ×2 (06:30→18:00)
[2021-10-16] MEDS: VALPROIC ACID 250MG/5ML SOL ORAL SYRINGE *DRAW UP EXACT DOSE GT SCH ×2 (08:00→20:44)
[2021-10-16] MEDS: OMEPRAZOLE SUSPENSION 20MG 10ML ORAL SYRINGE GT SCH (08:00)
[2021-10-16] MEDS: predniSONE 10 MG TAB JT SCH (08:00)
[2021-10-16] MEDS: QUEtiapine FUMARATE 100 MG TAB GT SCH (08:00)
[2021-10-16] MEDS: ENOXAPARIN 40MG/0.4ML SYRINGE (J1650 PER 10MG) SC SCH (08:00)
[2021-10-16] MEDS: QUEtiapine FUMARATE 200 MG TAB GT SCH (20:44)
[2021-10-17] VITALS (28 sets, daily range): BP systolic 90–157; BP diastolic 50–87; O2SAT 94–97
[2021-10-17] MEDS: SODIUM CHLORIDE HYPERTONIC 3% 15ML NEB SOL INH SCH ×6 (03:32→23:14)
[2021-10-17] MEDS: ALBUTEROL SULFATE 2.5 MG/0.5 ML INH NEB SOLN NEB SCH ×6 (03:32→23:13)
[2021-10-17 05:27] LABS: HEMOGLOBIN 11.8 g/dl (13.5-17.5); MEAN CORPUSCULAR HEMOGLOBIN 31.2 pg (27.0-33.0); MEAN CORPUSCULAR HGB CONC 31.1 g/dl (32.0-36.5); MEAN CORPUSCULAR VOLUME 100.5 fl (80.0-96.0); PLATELET COUNT, AUTOMATED 381 10^3/uL (150-450); RED BLOOD COUNT 3.78 10^6/uL (4.30-6.10); WHITE BLOOD COUNT 11.2 10^3/uL (4.0-10.0)
[2021-10-17] MEDS: INSULIN LISPRO (NovoLOG) PER UNIT SC SCH ×5 (05:39→23:45)
[2021-10-17 06:00] LABS: BLOOD UREA NITROGEN 38 MG/DL (7-18); CALCIUM LEVEL 9.1 MG/DL (8.8-10.2); CARBON DIOXIDE LEVEL 33 MEQ/L (21-32); CHLORIDE LEVEL 107 MEQ/L (98-107); CREATININE FOR GFR 1.11 MG/DL (0.70-1.30); GLOMERULAR FILTRATION RATE > 60.0 (>42); GLUCOSE, FASTING 102 MG/DL (70-100); POTASSIUM SERUM 3.6 MEQ/L (3.5-5.1); SODIUM LEVEL 145 MEQ/L (136-145)
[2021-10-17] MEDS: SODIUM CHLORIDE 0.9% INJ 10 ML SYR IV SCH ×2 (06:02→17:38)
[2021-10-17] MEDS: ENOXAPARIN 40MG/0.4ML SYRINGE (J1650 PER 10MG) SC SCH (08:33)
[2021-10-17] MEDS: OMEPRAZOLE SUSPENSION 20MG 10ML ORAL SYRINGE GT SCH (08:33)
[2021-10-17] MEDS: VALPROIC ACID 250MG/5ML SOL ORAL SYRINGE *DRAW UP EXACT DOSE GT SCH ×2 (08:33→20:26)
[2021-10-17] MEDS: QUEtiapine FUMARATE 100 MG TAB GT SCH (08:33)
[2021-10-17] MEDS: predniSONE 10 MG TAB JT SCH (08:34)
[2021-10-17] MEDS: D5W 1,000 ML IV SCH (08:34)
[2021-10-17] MEDS: QUEtiapine FUMARATE 200 MG TAB GT SCH (20:30)
[2021-10-18] VITALS (21 sets, daily range): BP systolic 89–146; BP diastolic 50–71; O2SAT 92–95
[2021-10-18] MEDS: ALBUTEROL SULFATE 2.5 MG/0.5 ML INH NEB SOLN NEB SCH ×6 (03:21→23:52)
[2021-10-18] MEDS: SODIUM CHLORIDE HYPERTONIC 3% 15ML NEB SOL INH SCH ×6 (03:21→23:52)
[2021-10-18] MEDS: SODIUM CHLORIDE 0.9% INJ 10 ML SYR IV SCH ×2 (05:25→18:00)
[2021-10-18 05:28] LABS: HEMOGLOBIN 10.2 g/dl (13.5-17.5); MEAN CORPUSCULAR HEMOGLOBIN 31.6 pg (27.0-33.0); MEAN CORPUSCULAR HGB CONC 31.9 g/dl (32.0-36.5); MEAN CORPUSCULAR VOLUME 99.1 fl (80.0-96.0); RED BLOOD COUNT 3.23 10^6/uL (4.30-6.10); WHITE BLOOD COUNT 8.6 10^3/uL (4.0-10.0)
[2021-10-18 05:40] LABS: PLATELET COUNT, AUTOMATED 271 10^3/uL (150-450)
[2021-10-18 05:54] LABS: BLOOD UREA NITROGEN 41 MG/DL (7-18); CALCIUM LEVEL 8.8 MG/DL (8.8-10.2); CARBON DIOXIDE LEVEL 36 MEQ/L (21-32); CHLORIDE LEVEL 104 MEQ/L (98-107); CREATININE FOR GFR 1.08 MG/DL (0.70-1.30); GLOMERULAR FILTRATION RATE > 60.0 (>42); GLUCOSE, FASTING 109 MG/DL (70-100); SODIUM LEVEL 144 MEQ/L (136-145)
[2021-10-18] MEDS: INSULIN LISPRO (NovoLOG) PER UNIT SC SCH ×4 (06:00→23:43)
[2021-10-18] MEDS ORDERED: D5W 1,000 ML IV SCH (07:15)
[2021-10-18] MEDS ORDERED: POTASSIUM CHLORIDE 10% LIQ 20 MEQ/15 ML UDC GT ONE (07:30)
[2021-10-18] MEDS: QUEtiapine FUMARATE 100 MG TAB GT SCH (08:37)
[2021-10-18] MEDS: OMEPRAZOLE SUSPENSION 20MG 10ML ORAL SYRINGE GT SCH (08:38)
[2021-10-18] MEDS: ENOXAPARIN 40MG/0.4ML SYRINGE (J1650 PER 10MG) SC SCH (08:38)
[2021-10-18] MEDS: VALPROIC ACID 250MG/5ML SOL ORAL SYRINGE *DRAW UP EXACT DOSE GT SCH ×2 (08:38→20:05)
[2021-10-18] MEDS: predniSONE 10 MG TAB JT SCH (08:38)
[2021-10-18] MEDS: KCL 10MEQ/100ML SWI (KRUN) 10 MEQ in IV 1 EA IV SCH ×3 (08:39→11:13)
[2021-10-18] MEDS: QUEtiapine FUMARATE 200 MG TAB GT SCH (20:05)
[2021-10-19] VITALS (25 sets, daily range): BP systolic 83–136; BP diastolic 50–84; O2SAT 92–96
[2021-10-19] MEDS: SODIUM CHLORIDE HYPERTONIC 3% 15ML NEB SOL INH SCH ×5 (03:35→19:51)
[2021-10-19] MEDS: ALBUTEROL SULFATE 2.5 MG/0.5 ML INH NEB SOLN NEB SCH ×5 (03:35→19:51)
[2021-10-19] MEDS: SODIUM CHLORIDE 0.9% INJ 10 ML SYR IV SCH ×2 (05:33→18:25)
[2021-10-19] MEDS: INSULIN LISPRO (NovoLOG) PER UNIT SC SCH (05:49)
[2021-10-19 07:37] LABS: HEMATOCRIT 30.5 % (42.0-52.0); HEMOGLOBIN 9.8 g/dl (13.5-17.5); MEAN CORPUSCULAR HEMOGLOBIN 30.7 pg (27.0-33.0); MEAN CORPUSCULAR HGB CONC 32.1 g/dl (32.0-36.5); MEAN CORPUSCULAR VOLUME 95.6 fl (80.0-96.0); PLATELET COUNT, AUTOMATED 201 10^3/uL (150-450); RED BLOOD COUNT 3.19 10^6/uL (4.30-6.10); WHITE BLOOD COUNT 5.9 10^3/uL (4.0-10.0)
[2021-10-19 08:09] LABS: BLOOD UREA NITROGEN 31 MG/DL (7-18); CALCIUM LEVEL 8.2 MG/DL (8.8-10.2); CARBON DIOXIDE LEVEL 32 MEQ/L (21-32); CHLORIDE LEVEL 102 MEQ/L (98-107); CREATININE FOR GFR 1.04 MG/DL (0.70-1.30); GLOMERULAR FILTRATION RATE > 60.0 (>42); GLUCOSE, FASTING 89 MG/DL (70-100); POTASSIUM SERUM 4.3 MEQ/L (3.5-5.1); SODIUM LEVEL 137 MEQ/L (136-145)
[2021-10-19] MEDS: ENOXAPARIN 40MG/0.4ML SYRINGE (J1650 PER 10MG) SC SCH (09:11)
[2021-10-19] MEDS: VALPROIC ACID 250MG/5ML SOL ORAL SYRINGE *DRAW UP EXACT DOSE GT SCH ×2 (09:11→20:25)
[2021-10-19] MEDS: predniSONE 10 MG TAB JT SCH (09:11)
[2021-10-19] MEDS: OMEPRAZOLE SUSPENSION 20MG 10ML ORAL SYRINGE GT SCH (09:11)
[2021-10-19] MEDS: QUEtiapine FUMARATE 100 MG TAB GT SCH (11:03)
[2021-10-19] MEDS: QUEtiapine FUMARATE 200 MG TAB GT SCH (20:25)
[2021-10-20] VITALS (10 sets, daily range): BP systolic 101–126; BP diastolic 54–77; O2SAT 94
[2021-10-20] MEDS: SODIUM CHLORIDE HYPERTONIC 3% 15ML NEB SOL INH SCH ×5 (00:01→20:12)
[2021-10-20] MEDS: ALBUTEROL SULFATE 2.5 MG/0.5 ML INH NEB SOLN NEB SCH ×5 (03:37→20:12)
[2021-10-20 05:04] LABS: HEMOGLOBIN 9.7 g/dl (13.5-17.5); MEAN CORPUSCULAR HEMOGLOBIN 30.7 pg (27.0-33.0); MEAN CORPUSCULAR HGB CONC 32.3 g/dl (32.0-36.5); MEAN CORPUSCULAR VOLUME 94.9 fl (80.0-96.0); PLATELET COUNT, AUTOMATED 164 10^3/uL (150-450); RED BLOOD COUNT 3.16 10^6/uL (4.30-6.10); WHITE BLOOD COUNT 4.9 10^3/uL (4.0-10.0)
[2021-10-20 05:41] LABS: BLOOD UREA NITROGEN 28 MG/DL (7-18); CALCIUM LEVEL 8.1 MG/DL (8.8-10.2); CARBON DIOXIDE LEVEL 34 MEQ/L (21-32); CHLORIDE LEVEL 100 MEQ/L (98-107); CREATININE FOR GFR 0.94 MG/DL (0.70-1.30); GLOMERULAR FILTRATION RATE > 60.0 (>42); GLUCOSE, FASTING 92 MG/DL (70-100); POTASSIUM SERUM 3.9 MEQ/L (3.5-5.1); SODIUM LEVEL 138 MEQ/L (136-145)
[2021-10-20] MEDS: SODIUM CHLORIDE 0.9% INJ 10 ML SYR IV SCH ×2 (05:55→18:00)
[2021-10-20] MEDS: ENOXAPARIN 40MG/0.4ML SYRINGE (J1650 PER 10MG) SC SCH (08:10)
[2021-10-20] MEDS: predniSONE 10 MG TAB JT SCH (08:10)
[2021-10-20] MEDS: VALPROIC ACID 250MG/5ML SOL ORAL SYRINGE *DRAW UP EXACT DOSE GT SCH ×2 (08:10→20:34)
[2021-10-20] MEDS: QUEtiapine FUMARATE 100 MG TAB GT SCH (08:10)
[2021-10-20] MEDS: OMEPRAZOLE SUSPENSION 20MG 10ML ORAL SYRINGE GT SCH (08:10)
[2021-10-20] MEDS: QUEtiapine FUMARATE 200 MG TAB GT SCH (20:34)
[2021-10-21] MEDS: ALBUTEROL SULFATE 2.5 MG/0.5 ML INH NEB SOLN NEB SCH ×4 (02:00→20:32)
[2021-10-21] MEDS: SODIUM CHLORIDE HYPERTONIC 3% 15ML NEB SOL INH SCH ×3 (02:00→20:33)
[2021-10-21 03:49] VITALS: BP 107/66
[2021-10-21] MEDS: SODIUM CHLORIDE 0.9% INJ 10 ML SYR IV SCH ×2 (05:47→18:40)
[2021-10-21] MEDS: QUEtiapine FUMARATE 100 MG TAB GT SCH (08:28)
[2021-10-21] MEDS: predniSONE 10 MG TAB JT SCH (08:28)
[2021-10-21] MEDS: OMEPRAZOLE SUSPENSION 20MG 10ML ORAL SYRINGE GT SCH (08:29)
[2021-10-21] MEDS: VALPROIC ACID 250MG/5ML SOL ORAL SYRINGE *DRAW UP EXACT DOSE GT SCH ×2 (08:29→20:49)
[2021-10-21] MEDS: ENOXAPARIN 40MG/0.4ML SYRINGE (J1650 PER 10MG) SC SCH (08:29)
[2021-10-21] MEDS: QUEtiapine FUMARATE 200 MG TAB GT SCH (20:49)
[2021-10-22] MEDS: SODIUM CHLORIDE HYPERTONIC 3% 15ML NEB SOL INH SCH ×3 (02:00→14:00)
[2021-10-22] MEDS: ALBUTEROL SULFATE 2.5 MG/0.5 ML INH NEB SOLN NEB SCH ×3 (02:00→14:00)
[2021-10-22 04:39] VITALS: BP 137/65
[2021-10-22] MEDS: SODIUM CHLORIDE 0.9% INJ 10 ML SYR IV SCH (05:36)
[2021-10-22] MEDS: SODIUM CHLORIDE 0.9% INJ 10 ML SYR IV PRN (05:37)
[2021-10-22] MEDS: OMEPRAZOLE SUSPENSION 20MG 10ML ORAL SYRINGE GT SCH (09:43)
[2021-10-22] MEDS: VALPROIC ACID 250MG/5ML SOL ORAL SYRINGE *DRAW UP EXACT DOSE GT SCH (09:43)
[2021-10-22] MEDS: predniSONE 10 MG TAB JT SCH (09:44)
[2021-10-22] MEDS: ENOXAPARIN 40MG/0.4ML SYRINGE (J1650 PER 10MG) SC SCH (09:44)
[2021-10-22] MEDS: QUEtiapine FUMARATE 100 MG TAB GT SCH (09:44)
[2021-10-22] MEDS ORDERED: ALB2.5NEB NEB (10:36)
[2021-10-22] MEDS ORDERED: MINIMIS6 XX (10:36)
[2021-10-22] MEDS ORDERED: PRED10TA2 JT (10:36)
== END 2021-10-22 16:30 | DRG 208 ==
LOC: M ED 00:55 → EDBD 00:55 → M ED INP 06:41 → ENRESERV 08:17 → M ICU 09:10 → M 4MAIN 10-09 13:15 → M MS5PR 10-11 06:55 → M ICU 10-13 06:15 → M 4MAIN 10-20 13:40
PROVIDERS: ADMIT Internal Medicine Pulmonary Disease; ATTEND Internal Medicine
PROC: 5A1945Z Respiratory Ventilation, 24-96 Consecutive Hours (ICD-10-PCS; principal; 2021-10-02)
PROC: 02HV33Z Insertion of Infusion Device into Superior Vena Cava, Percutaneous Approach (ICD-10-PCS; 2021-10-02)
DX: U07.1 COVID-19 (principal); J96.01 Acute respiratory failure with hypoxia; J12.82 Pneumonia due to coronavirus disease 2019; J69.0 Pneumonitis due to inhalation of food and vomit; J98.11 Atelectasis; E22.2 Syndrome of inappropriate secretion of antidiuretic hormone; J81.1 Chronic pulmonary edema; E87.0 Hyperosmolality and hypernatremia; F72 Severe intellectual disabilities; E87.1 Hypo-osmolality and hyponatremia; G40.909 Epilepsy, unspecified, not intractable, without status epilepticus; K21.9 Gastro-esophageal reflux disease without esophagitis; Z93.1 Gastrostomy status; Z88.8 Allergy status to other drugs, medicaments and biological substances; Z79.899 Other long term (current) drug therapy; R73.9 Hyperglycemia, unspecified

== ENCOUNTER 2021-10-23 15:26 | Emergency (ER) | payer MEDICARE, MEDICAID ==
[~2021-10-23] VITALS: Ht 177.8 cm; Wt 80.0 kg
[~2021-10-23 15:26] MED LIST changes: +CULTCAP2 GT; +D-VI400L GT; +LANS30TA5 GT; +LORA2TA GT; +MAGN1.743 GT; +MINIMIS6 XX; +PRED10TA2 JT; +SENN8.6T28 GT; +SERO1TAB GT; +SERO200T GT; +VALP250S GT
[2021-10-23 15:49] LABS: ABG BASE EXCESS 5.1 (-2.0-2.0); ABG HCO3 29.6 MEQ/L (22.0-26.0); ABG O2 SATURATION 94.2 % (95.0-99.0); ABG PARTIAL PRESSURE CO2 43.1 mmHg (35.0-45.0); ABG PARTIAL PRESSURE O2 73.5 mmHg (75.0-100.0); ABG TOTAL CO2 30.9 MEQ/L (23.0-31.0); ABG pH (ARTERIAL) 7.454 UNITS (7.350-7.450)
[2021-10-23 16:26] LABS: BASO % 0.4 % (0.0-1.0); EOS % 0.2 % (0.0-3.0); HEMATOCRIT 30.6 % (42.0-52.0); HEMOGLOBIN 9.9 g/dl (13.5-17.5); LYMPH # 0.7 10^3/uL (1.5-5.0); MEAN CORPUSCULAR HEMOGLOBIN 31.3 pg (27.0-33.0); MEAN CORPUSCULAR HGB CONC 32.4 g/dl (32.0-36.5); MEAN CORPUSCULAR VOLUME 96.8 fl (80.0-96.0); MONO # 0.2 10^3/uL (0.0-0.8); MONO % 4.1 % (2.0-8.0); NEUTROPHILS # 4.1 10^3/uL (1.5-8.5); NEUTROPHILS % 77.4 % (36.0-66.0); PLATELET COUNT, AUTOMATED 152 10^3/uL (150-450); RED BLOOD COUNT 3.16 10^6/uL (4.30-6.10); WHITE BLOOD COUNT 5.3 10^3/uL (4.0-10.0)
[2021-10-23 17:04] LABS: BLOOD UREA NITROGEN 31 MG/DL (7-18); CALCIUM LEVEL 8.5 MG/DL (8.8-10.2); CARBON DIOXIDE LEVEL 32 MEQ/L (21-32); CHLORIDE LEVEL 101 MEQ/L (98-107); CREATININE FOR GFR 1.07 MG/DL (0.70-1.30); GLOMERULAR FILTRATION RATE > 60.0 (>42); GLUCOSE, FASTING 129 MG/DL (70-100); POTASSIUM SERUM 5.7 MEQ/L (3.5-5.1); SODIUM LEVEL 135 MEQ/L (136-145); VALPROIC ACID (DEPAKOTE) 66.8 UG/ML (50.0-100.0)
[2021-10-23 19:26] VITALS: BP 110/60
[2021-10-24] MEDS ORDERED: oxygen NARES (09:03)
[2021-10-24] MEDS ORDERED: MIRA3350 GT (09:14)
== END 2021-10-23 20:34 | disposition home or self-care (01) ==
LOC: M ED 15:26
DX: R53.83 Other fatigue (principal); Z87.01 Personal history of pneumonia (recurrent); F72 Severe intellectual disabilities; Z79.899 Other long term (current) drug therapy; Z88.8 Allergy status to other drugs, medicaments and biological substances

== ENCOUNTER 2021-10-24 08:31 | Emergency (ER) | payer MEDICARE, MEDICAID ==
[~2021-10-24] VITALS: Ht 177.8 cm; Wt 80.0 kg
[2021-10-24] MEDS ORDERED: oxygen NARES (09:03)
[2021-10-24] MEDS ORDERED: MIRA3350 GT (09:14)
[2021-10-24 11:37] VITALS: BP 127/67
== END 2021-10-24 11:38 | disposition home or self-care (01) ==
LOC: EDBD 08:31 → M ED 08:31
DX: R09.02 Hypoxemia (principal); Z86.16 Personal history of COVID-19; R00.1 Bradycardia, unspecified; R56.9 Unspecified convulsions; Z93.1 Gastrostomy status; Z79.899 Other long term (current) drug therapy; Z88.5 Allergy status to narcotic agent

== ENCOUNTER 2021-10-26 12:48 | Inpatient (IN) | payer MEDICARE, MEDICAID ==
[~2021-10-26] VITALS: Ht 165.1 cm; Wt 70.5 kg
[~2021-10-26 12:48] MED LIST changes: +MIRA3350 GT; +oxygen NARES
[2021-10-26] MEDS ORDERED: ceFAZolin SOD 1 GM in D5W MINI-BAG PLUS 50 ML IV SCH (15:05)
[2021-10-26] MEDS ORDERED: ALBUTEROL SULFATE 2.5 MG/0.5 ML INH NEB SOLN INH PRN (15:35)
[2021-10-26 15:40] LABS: HEMATOCRIT 30.7 % (42.0-52.0); HEMOGLOBIN 9.8 g/dl (13.5-17.5); MEAN CORPUSCULAR HGB CONC 31.9 g/dl (32.0-36.5); MEAN CORPUSCULAR VOLUME 97.2 fl (80.0-96.0); PLATELET COUNT, AUTOMATED 227 10^3/uL (150-450); RED BLOOD COUNT 3.16 10^6/uL (4.30-6.10); WHITE BLOOD COUNT 13.4 10^3/uL (4.0-10.0)
[2021-10-26] MEDS: ALBUTEROL SULFATE 2.5 MG/0.5 ML INH NEB SOLN INH SCH ×2 (16:00→21:32)
[2021-10-26] MEDS ORDERED: ALB2.5NEB NEB (16:44)
[2021-10-26] MEDS ORDERED: HOME MED LIST COMPLETE! XX SCH (16:45)
[2021-10-26 17:13] LABS: ALBUMIN 2.2 GM/DL (3.2-5.2); ALT/SGPT 18 U/L (12-78); BILIRUBIN,TOTAL 0.4 MG/DL (0.2-1.0); BLOOD UREA NITROGEN 22 MG/DL (7-18); CALCIUM LEVEL 8.8 MG/DL (8.8-10.2); CARBON DIOXIDE LEVEL 33 MEQ/L (21-32); CHLORIDE LEVEL 98 MEQ/L (98-107); CREATININE FOR GFR 1.05 MG/DL (0.70-1.30); GLOMERULAR FILTRATION RATE > 60.0 (>42); GLUCOSE, FASTING 99 MG/DL (70-100); MAGNESIUM LEVEL 2.3 MG/DL (1.8-2.4); SODIUM LEVEL 135 MEQ/L (136-145); TOTAL PROTEIN 7.4 GM/DL (6.4-8.2)
[2021-10-26 18:00] VITALS: BP 128/97
[2021-10-26] MEDS: ceFAZolin SOD 2 GM in IV 1 EA IV SCH (18:02)
[2021-10-26] MEDS: LORazepam 2 MG TAB PEG SCH (18:58)
[2021-10-26 21:04] VITALS: BP 118/68
[2021-10-26] MEDS: QUEtiapine FUMARATE 200 MG TAB GT SCH (21:37)
[2021-10-26] MEDS: VALPROIC ACID 250MG/5ML SOL ORAL SYRINGE *DRAW UP EXACT DOSE PEG SCH (21:37)
[2021-10-26] MEDS: HEPARIN SOD (PORCINE) 5000UNITS/ML 1ML VIAL/SYRINGE SQ SCH (21:37)
[2021-10-26] MEDS: SENOKOT S TAB PEG SCH (21:38)
[2021-10-27] MEDS: ceFAZolin SOD 2 GM in IV 1 EA IV SCH ×4 (00:16→16:14)
[2021-10-27] MEDS: LORazepam 2 MG TAB PEG SCH ×2 (00:16→05:58)
[2021-10-27 02:00] VITALS: BP 98/60
[2021-10-27 03:05] VITALS: BP 98/60
[2021-10-27 06:00] VITALS: BP 109/68
[2021-10-27 06:29] LABS: HEMATOCRIT 26.7 % (42.0-52.0); HEMOGLOBIN 8.7 g/dl (13.5-17.5); MEAN CORPUSCULAR HGB CONC 32.6 g/dl (32.0-36.5); PLATELET COUNT, AUTOMATED 192 10^3/uL (150-450); RED BLOOD COUNT 2.81 10^6/uL (4.30-6.10); WHITE BLOOD COUNT 7.3 10^3/uL (4.0-10.0)
[2021-10-27] MEDS ORDERED: NALOXONE INJ 0.4MG/1ML VIAL (J2310 PER 1MG) IV STA (07:09)
[2021-10-27 07:10] LABS: BLOOD UREA NITROGEN 24 MG/DL (7-18); CALCIUM LEVEL 8.6 MG/DL (8.8-10.2); CARBON DIOXIDE LEVEL 30 MEQ/L (21-32); CHLORIDE LEVEL 98 MEQ/L (98-107); CREATININE FOR GFR 0.98 MG/DL (0.70-1.30); GLOMERULAR FILTRATION RATE > 60.0 (>42); GLUCOSE, FASTING 94 MG/DL (70-100); POTASSIUM SERUM 3.8 MEQ/L (3.5-5.1); SODIUM LEVEL 136 MEQ/L (136-145)
[2021-10-27] MEDS ORDERED: flumazeniL 0.5 MG/5 ML VIAL IV STA (07:10)
[2021-10-27] MEDS: ALBUTEROL SULFATE 2.5 MG/0.5 ML INH NEB SOLN INH SCH ×4 (07:15→21:17)
[2021-10-27 07:28] LABS: ABG BASE EXCESS 10.7 (-2.0-2.0); ABG HCO3 35.2 MEQ/L (22.0-26.0); ABG O2 SATURATION 99.1 % (95.0-99.0); ABG PARTIAL PRESSURE CO2 47.5 mmHg (35.0-45.0); ABG PARTIAL PRESSURE O2 178.8 mmHg (75.0-100.0); ABG STANDARD HCO3 34.4 MEQ/L (22.0-26.0); ABG TOTAL CO2 36.7 MEQ/L (23.0-31.0); ABG pH (ARTERIAL) 7.488 UNITS (7.350-7.450)
[2021-10-27] MEDS ORDERED: QUEtiapine FUMARATE 100 MG TAB GT SCH (09:00)
[2021-10-27] MEDS ORDERED: ENTER DRUG NAME HERE (PATIENT'S OWN MED) GT SCH (09:00)
[2021-10-27] MEDS: HEPARIN SOD (PORCINE) 5000UNITS/ML 1ML VIAL/SYRINGE SQ SCH ×2 (09:44→20:07)
[2021-10-27] MEDS: VALPROIC ACID 250MG/5ML SOL ORAL SYRINGE *DRAW UP EXACT DOSE PEG SCH ×2 (09:44→20:06)
[2021-10-27] MEDS: CitaloPRAM (CeleXA) 20 MG TAB PEG SCH (09:44)
[2021-10-27] MEDS: SENOKOT S TAB PEG SCH ×2 (09:44→20:06)
[2021-10-27 09:57] LABS: VALPROIC ACID (DEPAKOTE) 61.4 UG/ML (50.0-100.0)
[2021-10-27 10:00] VITALS: BP 134/64
[2021-10-27] MEDS: LACTULOSE 20 GM/30 ML SYRUP UD PO SCH ×4 (12:40→18:58)
[2021-10-27] MEDS: OMEPRAZOLE SUSPENSION 20MG 10ML ORAL SYRINGE GT SCH (16:15)
[2021-10-27 18:00] VITALS: BP 134/66
[2021-10-27] MEDS: QUEtiapine FUMARATE 200 MG TAB GT SCH (20:07)
[2021-10-27 20:25] VITALS: BP 134/74
[2021-10-27 23:07] LABS: BLOOD UREA NITROGEN 23 MG/DL (7-18); CARBON DIOXIDE LEVEL 34 MEQ/L (21-32); CHLORIDE LEVEL 102 MEQ/L (98-107); CREATININE FOR GFR 1.21 MG/DL (0.70-1.30); GLOMERULAR FILTRATION RATE > 60.0 (>42); GLUCOSE, FASTING 125 MG/DL (70-100); POTASSIUM SERUM 5.2 MEQ/L (3.5-5.1); SODIUM LEVEL 140 MEQ/L (136-145)
[2021-10-28] MEDS: ceFAZolin SOD 2 GM in IV 1 EA IV SCH ×4 (00:30→16:16)
[2021-10-28 01:56] VITALS: BP 132/65
[2021-10-28 05:53] VITALS: BP 120/56
[2021-10-28 05:59] LABS: HEMATOCRIT 25.4 % (42.0-52.0); HEMOGLOBIN 8.2 g/dl (13.5-17.5); MEAN CORPUSCULAR HEMOGLOBIN 31.3 pg (27.0-33.0); MEAN CORPUSCULAR HGB CONC 32.3 g/dl (32.0-36.5); MEAN CORPUSCULAR VOLUME 96.9 fl (80.0-96.0); PLATELET COUNT, AUTOMATED 215 10^3/uL (150-450); RED BLOOD COUNT 2.62 10^6/uL (4.30-6.10); WHITE BLOOD COUNT 5.3 10^3/uL (4.0-10.0)
[2021-10-28 06:55] LABS: BLOOD UREA NITROGEN 22 MG/DL (7-18); CALCIUM LEVEL 8.6 MG/DL (8.8-10.2); CARBON DIOXIDE LEVEL 34 MEQ/L (21-32); CHLORIDE LEVEL 101 MEQ/L (98-107); CREATININE FOR GFR 1.02 MG/DL (0.70-1.30); GLOMERULAR FILTRATION RATE > 60.0 (>42); GLUCOSE, FASTING 93 MG/DL (70-100); POTASSIUM SERUM 3.6 MEQ/L (3.5-5.1); SODIUM LEVEL 139 MEQ/L (136-145)
[2021-10-28] MEDS: ALBUTEROL SULFATE 2.5 MG/0.5 ML INH NEB SOLN INH SCH ×4 (07:20→19:19)
[2021-10-28 10:00] VITALS: BP 115/57
[2021-10-28] MEDS: VALPROIC ACID 250MG/5ML SOL ORAL SYRINGE *DRAW UP EXACT DOSE PEG SCH ×2 (10:05→21:18)
[2021-10-28] MEDS: HEPARIN SOD (PORCINE) 5000UNITS/ML 1ML VIAL/SYRINGE SQ SCH ×3 (10:05→21:18)
[2021-10-28] MEDS: OMEPRAZOLE SUSPENSION 20MG 10ML ORAL SYRINGE GT SCH (10:06)
[2021-10-28] MEDS: QUEtiapine FUMARATE 100 MG TAB GT SCH (10:06)
[2021-10-28] MEDS: CitaloPRAM (CeleXA) 20 MG TAB PEG SCH (10:06)
[2021-10-28] MEDS: SENOKOT S TAB PEG SCH ×2 (10:07→21:00)
[2021-10-28] MEDS: LACTULOSE 20 GM/30 ML SYRUP UD PO SCH ×3 (12:50→21:18)
[2021-10-28 14:00] VITALS: BP 109/61
[2021-10-28] MEDS ORDERED: LACTULOSE 20 GM/30 ML SYRUP UD As Ordered ONE (14:09)
[2021-10-28 19:52] VITALS: BP 129/65
[2021-10-28] MEDS: SENNA 8.6 MG TAB (SENOKOT) GT SCH (21:00)
[2021-10-28] MEDS: QUEtiapine FUMARATE 200 MG TAB GT SCH (21:18)
[2021-10-28] MEDS: NYSTATIN 100,000 UNITS/GM TOPICAL PWD 15 GM TOP SCH (21:18)
[2021-10-29] MEDS: LACTULOSE 20 GM/30 ML SYRUP UD PO SCH ×4 (00:59→22:07)
[2021-10-29] MEDS: ceFAZolin SOD 2 GM in IV 1 EA IV SCH ×2 (01:00→10:59)
[2021-10-29 02:00] VITALS: BP 131/62
[2021-10-29 05:43] VITALS: BP 149/82
[2021-10-29 06:28] LABS: HEMATOCRIT 25.7 % (42.0-52.0); HEMOGLOBIN 8.1 g/dl (13.5-17.5); MEAN CORPUSCULAR HEMOGLOBIN 30.1 pg (27.0-33.0); MEAN CORPUSCULAR HGB CONC 31.5 g/dl (32.0-36.5); MEAN CORPUSCULAR VOLUME 95.5 fl (80.0-96.0); PLATELET COUNT, AUTOMATED 220 10^3/uL (150-450); RED BLOOD COUNT 2.69 10^6/uL (4.30-6.10); WHITE BLOOD COUNT 8.8 10^3/uL (4.0-10.0)
[2021-10-29 06:47] LABS: BLOOD UREA NITROGEN 22 MG/DL (7-18); CALCIUM LEVEL 9.3 MG/DL (8.8-10.2); CARBON DIOXIDE LEVEL 34 MEQ/L (21-32); CHLORIDE LEVEL 99 MEQ/L (98-107); CREATININE FOR GFR 1.08 MG/DL (0.70-1.30); GLOMERULAR FILTRATION RATE > 60.0 (>42); GLUCOSE, FASTING 96 MG/DL (70-100); POTASSIUM SERUM 3.4 MEQ/L (3.5-5.1); SODIUM LEVEL 139 MEQ/L (136-145)
[2021-10-29] MEDS: ALBUTEROL SULFATE 2.5 MG/0.5 ML INH NEB SOLN INH SCH ×4 (07:27→19:14)
[2021-10-29] MEDS ORDERED: POTASSIUM CHLORIDE 10% LIQ 20 MEQ/15 ML UDC PO ONE (08:00)
[2021-10-29] MEDS: MIRALAX *UNIT DOSE* 17GM PACKET GT SCH (09:00)
[2021-10-29] MEDS: SENOKOT S TAB PEG SCH ×2 (09:00→23:39)
[2021-10-29 10:00] VITALS: BP 128/60
[2021-10-29] MEDS: QUEtiapine FUMARATE 100 MG TAB GT SCH (10:14)
[2021-10-29] MEDS: CitaloPRAM (CeleXA) 20 MG TAB PEG SCH (10:14)
[2021-10-29] MEDS: OMEPRAZOLE SUSPENSION 20MG 10ML ORAL SYRINGE GT SCH (10:15)
[2021-10-29] MEDS: VALPROIC ACID 250MG/5ML SOL ORAL SYRINGE *DRAW UP EXACT DOSE PEG SCH ×2 (10:16→22:07)
[2021-10-29] MEDS: NYSTATIN 100,000 UNITS/GM TOPICAL PWD 15 GM TOP SCH ×2 (10:17→22:08)
[2021-10-29] MEDS: HEPARIN SOD (PORCINE) 5000UNITS/ML 1ML VIAL/SYRINGE SQ SCH ×2 (10:17→22:07)
[2021-10-29 14:06] VITALS: BP 139/63
[2021-10-29 18:02] VITALS: BP 152/68
[2021-10-29] MEDS: AUGMENTIN BID 400MG/5ML SUSP 50ML BTL PEG SCH (18:33)
[2021-10-29 21:37] VITALS: BP 109/61
[2021-10-29] MEDS: QUEtiapine FUMARATE 200 MG TAB GT SCH (22:07)
[2021-10-29] MEDS: SENNA 8.6 MG TAB (SENOKOT) GT SCH (23:39)
[2021-10-30 02:00] VITALS: BP 110/61
[2021-10-30 04:00] VITALS: BP 109/62
[2021-10-30] MEDS: AUGMENTIN BID 400MG/5ML SUSP 50ML BTL PEG SCH (05:33)
[2021-10-30] MEDS: LACTULOSE 20 GM/30 ML SYRUP UD PO SCH ×4 (05:33→10:53)
[2021-10-30 06:16] LABS: HEMATOCRIT 27.5 % (42.0-52.0); HEMOGLOBIN 8.7 g/dl (13.5-17.5); MEAN CORPUSCULAR HEMOGLOBIN 31.1 pg (27.0-33.0); MEAN CORPUSCULAR HGB CONC 31.6 g/dl (32.0-36.5); MEAN CORPUSCULAR VOLUME 98.2 fl (80.0-96.0); PLATELET COUNT, AUTOMATED 210 10^3/uL (150-450); WHITE BLOOD COUNT 5.2 10^3/uL (4.0-10.0)
[2021-10-30] MEDS ORDERED: BACI1CAP PO (06:49)
[2021-10-30] MEDS ORDERED: AMOX400S PEG ×2 (06:49→14:25)
[2021-10-30 06:59] LABS: BLOOD UREA NITROGEN 24 MG/DL (7-18); CALCIUM LEVEL 9.2 MG/DL (8.8-10.2); CARBON DIOXIDE LEVEL 37 MEQ/L (21-32); CHLORIDE LEVEL 102 MEQ/L (98-107); CREATININE FOR GFR 0.93 MG/DL (0.70-1.30); GLOMERULAR FILTRATION RATE > 60.0 (>42); GLUCOSE, FASTING 100 MG/DL (70-100); SODIUM LEVEL 141 MEQ/L (136-145)
[2021-10-30] MEDS: ALBUTEROL SULFATE 2.5 MG/0.5 ML INH NEB SOLN INH SCH ×3 (07:30→15:23)
[2021-10-30 08:22] LABS: C REACTIVE PROTEIN QUANTITATIV 7.14 MG/DL (0.00-0.30)
[2021-10-30 08:51] LABS: ERYTHROCYTE SEDIMENTATION RATE 129 mm/hr (0-20)
[2021-10-30] MEDS: MIRALAX *UNIT DOSE* 17GM PACKET GT SCH (09:00)
[2021-10-30] MEDS: SENOKOT S TAB PEG SCH (09:00)
[2021-10-30] MEDS: CitaloPRAM (CeleXA) 20 MG TAB PEG SCH (10:53)
[2021-10-30] MEDS: HEPARIN SOD (PORCINE) 5000UNITS/ML 1ML VIAL/SYRINGE SQ SCH (10:53)
[2021-10-30] MEDS: QUEtiapine FUMARATE 100 MG TAB GT SCH (10:53)
[2021-10-30] MEDS: VALPROIC ACID 250MG/5ML SOL ORAL SYRINGE *DRAW UP EXACT DOSE PEG SCH (10:54)
[2021-10-30] MEDS: NYSTATIN 100,000 UNITS/GM TOPICAL PWD 15 GM TOP SCH (10:54)
[2021-10-30] MEDS: OMEPRAZOLE SUSPENSION 20MG 10ML ORAL SYRINGE GT SCH (10:54)
[2021-10-30] MEDS ORDERED: MUCI1LIQ3 PO (12:40)
[2021-10-30] MEDS ORDERED: guaiFENesin SYRUP 200MG 10ML UDC PO SCH (13:00)
[2021-10-30] MEDS ORDERED: guaiFENesin SYRUP 200MG 10ML UDC GT SCH (13:00)
[2021-10-30 14:00] VITALS: BP_SYST 114; BP_SYST 130; BP_DIAS 60; BP_DIAS 64
[2021-10-30] MEDS ORDERED: guaiFENesin ER 600 MG TAB PO SCH (21:00)
== END 2021-10-30 16:13 | disposition home or self-care (01) | DRG 189 ==
LOC: M ED 12:48 → M ED INP 15:01 → ENRESERV 16:29 → M MSPAV 18:22
PROVIDERS: ADMIT Family Medicine; ATTEND General Practice
DX: J96.01 Acute respiratory failure with hypoxia (principal); G93.41 Metabolic encephalopathy; J15.0 Pneumonia due to Klebsiella pneumoniae; F72 Severe intellectual disabilities; I44.2 Atrioventricular block, complete; R78.81 Bacteremia; N18.31 Chronic kidney disease, stage 3a; F20.9 Schizophrenia, unspecified; K21.9 Gastro-esophageal reflux disease without esophagitis; G40.909 Epilepsy, unspecified, not intractable, without status epilepticus; Z93.1 Gastrostomy status; Z86.16 Personal history of COVID-19; Z79.899 Other long term (current) drug therapy; Z88.8 Allergy status to other drugs, medicaments and biological substances

== ENCOUNTER 2022-01-15 17:08 | Emergency (ER) | payer MEDICARE, MEDICAID ==
[~2022-01-15 17:08] MED LIST changes: +AMOX400S PEG; +BACI1CAP PO; -MAGN1.743 GT; +MAGN296S5 GT; +MUCI1LIQ3 PO; -QUET200T54 PO; +QUET200T79 PO
[2022-01-15 20:59] VITALS: BP 131/66
== END 2022-01-15 21:02 | disposition home or self-care (01) ==
LOC: M ED 17:08 → EDBD 17:08 → M ED 21:02
DX: K94.23 Gastrostomy malfunction (principal); R56.9 Unspecified convulsions; F20.9 Schizophrenia, unspecified; K21.9 Gastro-esophageal reflux disease without esophagitis; F79 Unspecified intellectual disabilities; Z88.8 Allergy status to other drugs, medicaments and biological substances; Z79.899 Other long term (current) drug therapy; Z79.51 Long term (current) use of inhaled steroids

== ENCOUNTER 2022-06-11 21:03 | Inpatient (IN) | payer MEDICARE, MEDICAID ==
[~2022-06-11] VITALS: Ht 165.1 cm; Wt 75.6 kg
[~2022-06-11 21:03] MED LIST changes: +MAGN296S37 GT; -MAGN296S5 GT
[2022-06-11] MEDS ORDERED: PIPERACILLIN/TAZOBACTAM SOD 3.375 GM in D5W MINI-BAG PLUS 50 ML IV ONE (21:25)
[2022-06-11 22:16] LABS: ABG BASE EXCESS -0.6 (-2.0-2.0); ABG HCO3 23.5 MEQ/L (22.0-26.0); ABG PARTIAL PRESSURE CO2 37.3 mmHg (35.0-45.0); ABG PARTIAL PRESSURE O2 63.3 mmHg (75.0-100.0); ABG STANDARD HCO3 23.8 MEQ/L (22.0-26.0); ABG TOTAL CO2 24.7 MEQ/L (23.0-31.0); ABG pH (ARTERIAL) 7.418 UNITS (7.350-7.450)
[2022-06-11 22:39] LABS: THYROID STIMULATING HORMONE 5.751 uIU/ML (0.55-4.78)
[2022-06-11] MEDS ORDERED: NS 1,420 ML in IV 1 EA IV ONE (22:40)
[2022-06-11 22:51] LABS: ALBUMIN 3.6 G/DL (3.2-5.2); ALKALINE PHOSPHATASE 101 U/L (46-116); ALT/SGPT 29 U/L (7.0-40); AST/SGOT 49 U/L (<34); BILIRUBIN,DIRECT 0.1 MG/DL (<0.4); BILIRUBIN,TOTAL 0.3 MG/DL (0.3-1.2); BLOOD UREA NITROGEN 25 MG/DL (9-23); CARBON DIOXIDE LEVEL 28 MMOL/L (20-31); CHLORIDE LEVEL 91 MMOL/L (98-107); CK-MB VALUE MASS < 1.0 NG/ML (<3.6); CPK CREATINE PHOSPHOKINASE 95 U/L (46-171); CREATININE FOR GFR 1.03 MG/DL (0.70-1.30); GLOMERULAR FILTRATION RATE > 60.0 (>42); GLUCOSE, FASTING 123 MG/DL (74-106); MB/CK RELATIVE INDEX 1.05 (< OR =4); POTASSIUM SERUM 5.5 MMOL/L (3.5-5.1); SODIUM LEVEL 128 MMOL/L (136-145); TOTAL PROTEIN 7.8 G/DL (5.7-8.2)
[2022-06-11 22:55] LABS: INR 0.96
[2022-06-12] VITALS (10 sets, daily range): BP systolic 130–145; BP diastolic 62–77; O2SAT 85–88
[2022-06-12 00:48] LABS: BASO % 0.2 % (0.0-1.0); HEMATOCRIT 32.5 % (42.0-52.0); HEMOGLOBIN 9.4 g/dl (13.5-17.5); LYMPH # 0.5 10^3/uL (1.5-5.0); LYMPH % 5.9 % (24.0-44.0); MEAN CORPUSCULAR HEMOGLOBIN 31.8 pg (27.0-33.0); MEAN CORPUSCULAR HGB CONC 28.9 g/dl (32.0-36.5); MEAN CORPUSCULAR VOLUME 109.8 fl (80.0-96.0); MONO # 0.7 10^3/uL (0.0-0.8); NEUTROPHILS # 7.5 10^3/uL (1.5-8.5); NEUTROPHILS % 85.3 % (36.0-66.0); PLATELET COUNT, AUTOMATED 145 10^3/uL (150-450); RED BLOOD COUNT 2.96 10^6/uL (4.30-6.10); WHITE BLOOD COUNT 8.8 10^3/uL (4.0-10.0)
[2022-06-12] MEDS ORDERED: ALBUTEROL 90 MCG/ACT 8GM HFA INHALER INH PRN (03:30)
[2022-06-12 04:28] LABS: BLOOD UREA NITROGEN 24 MG/DL (9-23); CALCIUM LEVEL 8.4 MG/DL (8.3-10.6); CARBON DIOXIDE LEVEL 29 MMOL/L (20-31); CHLORIDE LEVEL 96 MMOL/L (98-107); CREATININE FOR GFR 1.08 MG/DL (0.70-1.30); GLOMERULAR FILTRATION RATE > 60.0 (>42); GLUCOSE, FASTING 112 MG/DL (74-106); POTASSIUM SERUM 5.3 MMOL/L (3.5-5.1); SODIUM LEVEL 130 MMOL/L (136-145)
[2022-06-12] MEDS: NS 1,000 ML IV SCH ×2 (04:30→15:04)
[2022-06-12] MEDS ORDERED: methylPREDNISolone 40MG 1ML VIAL IV SCH (05:00)
[2022-06-12] MEDS: IPRATROPIUM 0.02% SOLN 0.5MG 2.5ML NEB NEB SCH ×2 (07:32→13:07)
[2022-06-12] MEDS: ALBUTEROL SULFATE 2.5MG/0.5ML INH NEB SOLN NEB SCH ×5 (07:32→23:53)
[2022-06-12] MEDS ORDERED: ACETYLCYSTEINE 20% 4 ML VIAL (200MG/ML) INH SCH (08:00)
[2022-06-12] MEDS ORDERED: VALPROATE SOD INJ 500 MG in D5W 50 ML IV SCH ×2 (08:00→09:00)
[2022-06-12 08:36] LABS: BLOOD UREA NITROGEN 23 MG/DL (9-23); CALCIUM LEVEL 8.9 MG/DL (8.3-10.6); CARBON DIOXIDE LEVEL 28 MMOL/L (20-31); CHLORIDE LEVEL 96 MMOL/L (98-107); CREATININE FOR GFR 0.99 MG/DL (0.70-1.30); GLOMERULAR FILTRATION RATE > 60.0 (>42); GLUCOSE, FASTING 112 MG/DL (74-106); POTASSIUM SERUM 5.3 MMOL/L (3.5-5.1); SODIUM LEVEL 131 MMOL/L (136-145)
[2022-06-12] MEDS: ENOXAPARIN 40MG/0.4ML SYRINGE (J1650 PER 10MG) SC SCH (09:45)
[2022-06-12] MEDS ORDERED: CITA20TA7 GT (09:47)
[2022-06-12] MEDS ORDERED: CULT10CA4 GT (09:47)
[2022-06-12] MEDS ORDERED: ATIV1TAB10 GT (09:47)
[2022-06-12] MEDS ORDERED: guaiFENesin SYRUP 200MG 10ML UDC PO PRN (10:00)
[2022-06-12] MEDS ORDERED: MAGNESIUM CITRATE 300ML BTL GT PRN (10:15)
[2022-06-12 10:41] LABS: BLOOD UREA NITROGEN 23 MG/DL (9-23); CALCIUM LEVEL 8.7 MG/DL (8.3-10.6); CARBON DIOXIDE LEVEL 25 MMOL/L (20-31); CHLORIDE LEVEL 97 MMOL/L (98-107); CREATININE FOR GFR 0.98 MG/DL (0.70-1.30); GLOMERULAR FILTRATION RATE > 60.0 (>42); GLUCOSE, FASTING 121 MG/DL (74-106); SODIUM LEVEL 130 MMOL/L (136-145)
[2022-06-12] MEDS ORDERED: ISOVUE-370 76% 100ML VIAL As Ordered ONE (10:53)
[2022-06-12 11:08] LABS: IRON (FE) 14 UG/DL (65-175); PERCENT SATURATION 4.4 % (19.7-50.0); TOTAL IRON BINDING CAPACITY 317 UG/DL (250-425)
[2022-06-12 11:10] LABS: FERRITIN 211.4 NG/ML (10.5-307.3); FOLATE 23.21 NG/ML (>5.4)
[2022-06-12 11:11] LABS: VITAMIN B12 LEVEL 675 PG/ML (211-911)
[2022-06-12] MEDS: LORazepam 0.5 MG TAB GT SCH ×3 (12:31→21:11)
[2022-06-12] MEDS: CitaloPRAM (CeleXA) 20 MG TAB GT SCH (12:31)
[2022-06-12] MEDS ORDERED: methylPREDNISolone 125MG 2ML VIAL IV SCH (13:00)
[2022-06-12 14:10] LABS: ABG BASE EXCESS -0.1 (-2.0-2.0); ABG PARTIAL PRESSURE CO2 42.1 mmHg (35.0-45.0); ABG PARTIAL PRESSURE O2 158.1 mmHg (75.0-100.0); ABG STANDARD HCO3 24.5 MEQ/L (22.0-26.0); ABG TOTAL CO2 26.3 MEQ/L (23.0-31.0); ABG pH (ARTERIAL) 7.391 UNITS (7.350-7.450)
[2022-06-12] MEDS: SODIUM CHLORIDE HYPERTONIC 3% 15ML NEB SOL INH SCH ×3 (15:09→23:53)
[2022-06-12 15:33] LABS: OSMOLALITY URINE 423 MOSM/KG (50-1400)
[2022-06-12 15:37] LABS: SODIUM,RANDOM URINE 25 MMOL/L
[2022-06-12 16:24] LABS: BLOOD UREA NITROGEN 24 MG/DL (9-23); CALCIUM LEVEL 8.8 MG/DL (8.3-10.6); CARBON DIOXIDE LEVEL 25 MMOL/L (20-31); CHLORIDE LEVEL 98 MMOL/L (98-107); GLOMERULAR FILTRATION RATE > 60.0 (>42); GLUCOSE, FASTING 165 MG/DL (74-106); POTASSIUM SERUM 4.5 MMOL/L (3.5-5.1); SODIUM LEVEL 130 MMOL/L (136-145)
[2022-06-12] MEDS: PIPERACILLIN/TAZOBACTAM SOD 3.375 GM in D5W MINI-BAG PLUS 50 ML IV SCH ×2 (16:25→21:12)
[2022-06-12] MEDS ORDERED: FUROSEMIDE 20MG/2ML VIAL IV ONE (18:05)
[2022-06-12] MEDS: VALPROIC ACID 250MG/5ML SOL ORAL SYRINGE *DRAW UP EXACT DOSE GT SCH (21:10)
[2022-06-12] MEDS: SENNA 8.6 MG TAB (SENOKOT) GT SCH (21:11)
[2022-06-12] MEDS: QUEtiapine FUMARATE 200 MG TAB GT SCH (21:12)
[2022-06-12 22:37] LABS: BLOOD UREA NITROGEN 23 MG/DL (9-23); CALCIUM LEVEL 8.8 MG/DL (8.3-10.6); CARBON DIOXIDE LEVEL 28 MMOL/L (20-31); CHLORIDE LEVEL 98 MMOL/L (98-107); CREATININE FOR GFR 1.02 MG/DL (0.70-1.30); GLOMERULAR FILTRATION RATE > 60.0 (>42); GLUCOSE, FASTING 158 MG/DL (74-106); SODIUM LEVEL 134 MMOL/L (136-145)
[2022-06-13] VITALS (20 sets, daily range): BP systolic 121–184; BP diastolic 58–68; O2SAT 87–98
[2022-06-13] MEDS: ALBUTEROL SULFATE 2.5MG/0.5ML INH NEB SOLN NEB SCH ×5 (03:48→20:19)
[2022-06-13] MEDS: SODIUM CHLORIDE HYPERTONIC 3% 15ML NEB SOL INH SCH ×5 (03:48→20:19)
[2022-06-13] MEDS: NS 1,000 ML IV SCH ×2 (05:01→17:37)
[2022-06-13] MEDS: PIPERACILLIN/TAZOBACTAM SOD 3.375 GM in D5W MINI-BAG PLUS 50 ML IV SCH ×4 (05:02→20:15)
[2022-06-13] MEDS: PANTOPRAZOLE 40MG VIAL IV SCH (09:09)
[2022-06-13] MEDS: MIRALAX *UNIT DOSE* 17GM PACKET GT SCH (09:09)
[2022-06-13] MEDS: CitaloPRAM (CeleXA) 20 MG TAB GT SCH (09:10)
[2022-06-13] MEDS: ENOXAPARIN 40MG/0.4ML SYRINGE (J1650 PER 10MG) SC SCH (09:10)
[2022-06-13] MEDS: LORazepam 0.5 MG TAB GT SCH ×3 (09:10→20:15)
[2022-06-13] MEDS: QUEtiapine FUMARATE 100 MG TAB GT SCH (09:11)
[2022-06-13] MEDS: VALPROIC ACID 250MG/5ML SOL ORAL SYRINGE *DRAW UP EXACT DOSE GT SCH ×2 (09:12→20:14)
[2022-06-13] MEDS: methylPREDNISolone 125MG 2ML VIAL IV SCH ×2 (12:34→23:09)
[2022-06-13] MEDS: QUEtiapine FUMARATE 200 MG TAB GT SCH (20:14)
[2022-06-13] MEDS: SENNA 8.6 MG TAB (SENOKOT) GT SCH (20:14)
[2022-06-14] VITALS (8 sets, daily range): BP systolic 120–150; BP diastolic 58–72; O2SAT 94–96
[2022-06-14] MEDS: ALBUTEROL SULFATE 2.5MG/0.5ML INH NEB SOLN NEB SCH ×7 (00:03→23:04)
[2022-06-14] MEDS: SODIUM CHLORIDE HYPERTONIC 3% 15ML NEB SOL INH SCH ×7 (00:04→23:04)
[2022-06-14] MEDS: PIPERACILLIN/TAZOBACTAM SOD 3.375 GM in D5W MINI-BAG PLUS 50 ML IV SCH ×4 (03:23→21:12)
[2022-06-14 06:20] LABS: HEMATOCRIT 32.6 % (42.0-52.0); HEMOGLOBIN 10.5 g/dl (13.5-17.5); MEAN CORPUSCULAR HEMOGLOBIN 31.4 pg (27.0-33.0); MEAN CORPUSCULAR HGB CONC 32.2 g/dl (32.0-36.5); MEAN CORPUSCULAR VOLUME 97.6 fl (80.0-96.0); PLATELET COUNT, AUTOMATED 162 10^3/uL (150-450); RED BLOOD COUNT 3.34 10^6/uL (4.30-6.10); WHITE BLOOD COUNT 5.4 10^3/uL (4.0-10.0)
[2022-06-14] MEDS: NS 1,000 ML IV SCH (06:22)
[2022-06-14 06:39] LABS: BLOOD UREA NITROGEN 21 MG/DL (9-23); CALCIUM LEVEL 8.4 MG/DL (8.3-10.6); CARBON DIOXIDE LEVEL 27 MMOL/L (20-31); CHLORIDE LEVEL 102 MMOL/L (98-107); GLOMERULAR FILTRATION RATE > 60.0 (>42); GLUCOSE, FASTING 131 MG/DL (74-106); POTASSIUM SERUM 4.1 MMOL/L (3.5-5.1); SODIUM LEVEL 136 MMOL/L (136-145)
[2022-06-14 06:53] LABS: ANISOCYTOSIS 1+; ATYPICAL LYMPH 3 % (0-5); LYMPHOCYTES 13 % (16-44); MONOCYTES 5 % (0-5); NEUTROPHILS 54 % (28-66); PLATELET ESTIMATE NORMAL (NORMAL)
[2022-06-14] MEDS: ENOXAPARIN 40MG/0.4ML SYRINGE (J1650 PER 10MG) SC SCH (09:35)
[2022-06-14] MEDS: PANTOPRAZOLE 40MG VIAL IV SCH (09:35)
[2022-06-14] MEDS: CitaloPRAM (CeleXA) 20 MG TAB GT SCH (09:35)
[2022-06-14] MEDS: MIRALAX *UNIT DOSE* 17GM PACKET GT SCH (09:35)
[2022-06-14] MEDS: LORazepam 0.5 MG TAB GT SCH ×3 (09:35→21:12)
[2022-06-14] MEDS: QUEtiapine FUMARATE 100 MG TAB GT SCH (09:35)
[2022-06-14] MEDS: VALPROIC ACID 250MG/5ML SOL ORAL SYRINGE *DRAW UP EXACT DOSE GT SCH ×2 (09:42→21:11)
[2022-06-14] MEDS: methylPREDNISolone 125MG 2ML VIAL IV SCH ×2 (11:30→23:13)
[2022-06-14] MEDS: QUEtiapine FUMARATE 200 MG TAB GT SCH (21:11)
[2022-06-14] MEDS: SENNA 8.6 MG TAB (SENOKOT) GT SCH (21:12)
[2022-06-15] VITALS (9 sets, daily range): BP systolic 130–174; BP diastolic 59–89; O2SAT 94–99
[2022-06-15] MEDS: PIPERACILLIN/TAZOBACTAM SOD 3.375 GM in D5W MINI-BAG PLUS 50 ML IV SCH ×4 (03:34→22:03)
[2022-06-15] MEDS: SODIUM CHLORIDE HYPERTONIC 3% 15ML NEB SOL INH SCH ×6 (05:01→23:28)
[2022-06-15] MEDS: ALBUTEROL SULFATE 2.5MG/0.5ML INH NEB SOLN NEB SCH ×6 (05:01→23:27)
[2022-06-15 05:54] LABS: HEMATOCRIT 33.9 % (42.0-52.0); HEMOGLOBIN 10.7 g/dl (13.5-17.5); MEAN CORPUSCULAR HEMOGLOBIN 30.9 pg (27.0-33.0); MEAN CORPUSCULAR HGB CONC 31.6 g/dl (32.0-36.5); PLATELET COUNT, AUTOMATED 185 10^3/uL (150-450); RED BLOOD COUNT 3.46 10^6/uL (4.30-6.10); WHITE BLOOD COUNT 8.6 10^3/uL (4.0-10.0)
[2022-06-15 06:23] LABS: BLOOD UREA NITROGEN 30 MG/DL (9-23); CALCIUM LEVEL 8.1 MG/DL (8.3-10.6); CARBON DIOXIDE LEVEL 30 MMOL/L (20-31); CHLORIDE LEVEL 104 MMOL/L (98-107); CREATININE FOR GFR 1.01 MG/DL (0.70-1.30); GLOMERULAR FILTRATION RATE > 60.0 (>42); GLUCOSE, FASTING 118 MG/DL (74-106); SODIUM LEVEL 140 MMOL/L (136-145)
[2022-06-15 08:33] LABS: ATYPICAL LYMPH 3 % (0-5); EOSINOPHILS 1 % (0-3); LYMPHOCYTES 4 % (16-44); METAMYELOCYTES 2 % (0-0); MONOCYTES 14 % (0-5); MYELOCYTES 1 % (0-0); NEUTROPHILS 41 % (28-66)
[2022-06-15 08:34] LABS: ANISOCYTOSIS 1+
[2022-06-15 08:36] LABS: PLATELET ESTIMATE NORMAL (NORMAL)
[2022-06-15] MEDS: ENOXAPARIN 40MG/0.4ML SYRINGE (J1650 PER 10MG) SC SCH (08:56)
[2022-06-15] MEDS: VALPROIC ACID 250MG/5ML SOL ORAL SYRINGE *DRAW UP EXACT DOSE GT SCH ×2 (08:56→22:03)
[2022-06-15] MEDS: LORazepam 0.5 MG TAB GT SCH ×3 (08:57→22:02)
[2022-06-15] MEDS: CitaloPRAM (CeleXA) 20 MG TAB GT SCH (08:57)
[2022-06-15] MEDS: PANTOPRAZOLE 40MG VIAL IV SCH (08:57)
[2022-06-15] MEDS: QUEtiapine FUMARATE 100 MG TAB GT SCH (08:58)
[2022-06-15] MEDS: MIRALAX *UNIT DOSE* 17GM PACKET GT SCH (08:58)
[2022-06-15] MEDS: methylPREDNISolone 125MG 2ML VIAL IV SCH ×2 (11:17→23:42)
[2022-06-15] MEDS: SENNA 8.6 MG TAB (SENOKOT) GT SCH (22:02)
[2022-06-15] MEDS: QUEtiapine FUMARATE 200 MG TAB GT SCH (22:02)
[2022-06-16] VITALS (11 sets, daily range): BP systolic 126–168; BP diastolic 61–75; O2SAT 93–97
[2022-06-16] MEDS: ALBUTEROL SULFATE 2.5MG/0.5ML INH NEB SOLN NEB SCH ×6 (02:28→23:04)
[2022-06-16] MEDS: SODIUM CHLORIDE HYPERTONIC 3% 15ML NEB SOL INH SCH ×6 (02:29→23:05)
[2022-06-16] MEDS: PIPERACILLIN/TAZOBACTAM SOD 3.375 GM in D5W MINI-BAG PLUS 50 ML IV SCH (04:11)
[2022-06-16 06:17] LABS: HEMATOCRIT 32.3 % (42.0-52.0); HEMOGLOBIN 10.3 g/dl (13.5-17.5); MEAN CORPUSCULAR HEMOGLOBIN 31.1 pg (27.0-33.0); MEAN CORPUSCULAR HGB CONC 31.9 g/dl (32.0-36.5); MEAN CORPUSCULAR VOLUME 97.6 fl (80.0-96.0); PLATELET COUNT, AUTOMATED 192 10^3/uL (150-450); RED BLOOD COUNT 3.31 10^6/uL (4.30-6.10); WHITE BLOOD COUNT 9.6 10^3/uL (4.0-10.0)
[2022-06-16 06:46] LABS: BLOOD UREA NITROGEN 35 MG/DL (9-23); CALCIUM LEVEL 8.3 MG/DL (8.3-10.6); CARBON DIOXIDE LEVEL 31 MMOL/L (20-31); CHLORIDE LEVEL 104 MMOL/L (98-107); CREATININE FOR GFR 0.98 MG/DL (0.70-1.30); GLOMERULAR FILTRATION RATE > 60.0 (>42); GLUCOSE, FASTING 132 MG/DL (74-106); POTASSIUM SERUM 3.8 MMOL/L (3.5-5.1); SODIUM LEVEL 143 MMOL/L (136-145)
[2022-06-16 08:07] LABS: ATYPICAL LYMPH 5 % (0-5); LYMPHOCYTES 12 % (16-44); MONOCYTES 2 % (0-5); MYELOCYTES 3 % (0-0); NEUTROPHILS 72 % (28-66); PLATELET ESTIMATE NORMAL (NORMAL); PROMYELOCYTES 1 % (0-0); TOXIC VACUOLATION 1+
[2022-06-16 08:08] LABS: ANISOCYTOSIS 1+; HYPOCHROMASIA 1+
[2022-06-16] MEDS: ENOXAPARIN 40MG/0.4ML SYRINGE (J1650 PER 10MG) SC SCH (08:20)
[2022-06-16] MEDS: PIPERACILLIN/TAZOBACTAM SOD 4.5 GM in D5W MINI-BAG PLUS 50 ML IV SCH ×3 (08:20→20:17)
[2022-06-16] MEDS: PANTOPRAZOLE 40MG VIAL IV SCH (08:20)
[2022-06-16] MEDS: LORazepam 0.5 MG TAB GT SCH ×3 (08:21→20:18)
[2022-06-16] MEDS: QUEtiapine FUMARATE 100 MG TAB GT SCH (08:21)
[2022-06-16] MEDS: CitaloPRAM (CeleXA) 20 MG TAB GT SCH (08:21)
[2022-06-16] MEDS: MIRALAX *UNIT DOSE* 17GM PACKET GT SCH (09:00)
[2022-06-16] MEDS: methylPREDNISolone 125MG 2ML VIAL IV SCH ×2 (11:31→23:07)
[2022-06-16] MEDS: VALPROIC ACID 250MG/5ML SOL ORAL SYRINGE *DRAW UP EXACT DOSE GT SCH ×2 (11:32→20:18)
[2022-06-16 15:08] LABS: BODY FLUID CULTURE Not indicated. (.); LEGIONELLA ANTIGEN URINE Negative (Negative); ORGANISM ID Not indicated. (.); SPECIMEN SOURCE Urine (.); URINE STREP PNEUMONIAE ANTIGEN Negative (Negative)
[2022-06-16] MEDS: QUEtiapine FUMARATE 200 MG TAB GT SCH (20:18)
[2022-06-16] MEDS: SENNA 8.6 MG TAB (SENOKOT) GT SCH (20:18)
[2022-06-17] VITALS (34 sets, daily range): BP systolic 110–170; BP diastolic 53–78; O2SAT 89–97
[2022-06-17] MEDS ORDERED: amLODIPine 5 MG TAB PO ONE (01:00)
[2022-06-17] MEDS: SODIUM CHLORIDE HYPERTONIC 3% 15ML NEB SOL INH SCH ×6 (03:08→23:39)
[2022-06-17] MEDS: ALBUTEROL SULFATE 2.5MG/0.5ML INH NEB SOLN NEB SCH ×6 (03:08→23:52)
[2022-06-17] MEDS: PIPERACILLIN/TAZOBACTAM SOD 4.5 GM in D5W MINI-BAG PLUS 50 ML IV SCH ×4 (03:19→20:51)
[2022-06-17 06:26] LABS: HEMATOCRIT 32.8 % (42.0-52.0); HEMOGLOBIN 10.5 g/dl (13.5-17.5); MEAN CORPUSCULAR HEMOGLOBIN 31.1 pg (27.0-33.0); PLATELET COUNT, AUTOMATED 206 10^3/uL (150-450); RED BLOOD COUNT 3.38 10^6/uL (4.30-6.10); WHITE BLOOD COUNT 9.2 10^3/uL (4.0-10.0)
[2022-06-17 06:51] LABS: BLOOD UREA NITROGEN 25 MG/DL (9-23); CALCIUM LEVEL 8.3 MG/DL (8.3-10.6); CARBON DIOXIDE LEVEL 34 MMOL/L (20-31); CHLORIDE LEVEL 102 MMOL/L (98-107); CREATININE FOR GFR 0.97 MG/DL (0.70-1.30); GLOMERULAR FILTRATION RATE > 60.0 (>42); GLUCOSE, FASTING 123 MG/DL (74-106); POTASSIUM SERUM 4.1 MMOL/L (3.5-5.1); SODIUM LEVEL 141 MMOL/L (136-145)
[2022-06-17 06:58] LABS: ANISOCYTOSIS 1+; ATYPICAL LYMPH 3 % (0-5); LYMPHOCYTES 11 % (16-44); METAMYELOCYTES 3 % (0-0); MONOCYTES 4 % (0-5); MYELOCYTES 7 % (0-0); NEUTROPHILS 70 % (28-66); PLATELET ESTIMATE NORMAL (NORMAL)
[2022-06-17] MEDS: MIRALAX *UNIT DOSE* 17GM PACKET GT SCH (07:43)
[2022-06-17] MEDS: VALPROIC ACID 250MG/5ML SOL ORAL SYRINGE *DRAW UP EXACT DOSE GT SCH ×2 (09:03→20:52)
[2022-06-17] MEDS: PANTOPRAZOLE 40MG VIAL IV SCH (09:03)
[2022-06-17] MEDS: QUEtiapine FUMARATE 100 MG TAB GT SCH (09:04)
[2022-06-17] MEDS: ENOXAPARIN 40MG/0.4ML SYRINGE (J1650 PER 10MG) SC SCH (09:04)
[2022-06-17] MEDS: CitaloPRAM (CeleXA) 20 MG TAB GT SCH (09:05)
[2022-06-17] MEDS: LORazepam 0.5 MG TAB GT SCH ×3 (09:05→20:51)
[2022-06-17] MEDS: methylPREDNISolone 125MG 2ML VIAL IV SCH ×2 (12:48→23:13)
[2022-06-17] MEDS: LACTOBACILLUS ACIDOPHILUS CAP (BACID) PEG SCH ×3 (12:48→20:52)
[2022-06-17] MEDS: SENNA 8.6 MG TAB (SENOKOT) GT SCH (20:51)
[2022-06-17] MEDS: QUEtiapine FUMARATE 200 MG TAB GT SCH (20:54)
[2022-06-18] VITALS (31 sets, daily range): BP systolic 119–188; BP diastolic 60–90; O2SAT 86–97
[2022-06-18] MEDS: PIPERACILLIN/TAZOBACTAM SOD 4.5 GM in D5W MINI-BAG PLUS 50 ML IV SCH ×4 (02:22→20:52)
[2022-06-18] MEDS: ALBUTEROL SULFATE 2.5MG/0.5ML INH NEB SOLN NEB SCH ×6 (03:35→23:23)
[2022-06-18] MEDS: SODIUM CHLORIDE HYPERTONIC 3% 15ML NEB SOL INH SCH ×6 (03:36→23:23)
[2022-06-18 06:38] LABS: HEMATOCRIT 32.3 % (42.0-52.0); HEMOGLOBIN 10.4 g/dl (13.5-17.5); MEAN CORPUSCULAR HEMOGLOBIN 31.2 pg (27.0-33.0); MEAN CORPUSCULAR HGB CONC 32.2 g/dl (32.0-36.5); PLATELET COUNT, AUTOMATED 214 10^3/uL (150-450); RED BLOOD COUNT 3.33 10^6/uL (4.30-6.10); WHITE BLOOD COUNT 9.3 10^3/uL (4.0-10.0)
[2022-06-18 07:06] LABS: BLOOD UREA NITROGEN 35 MG/DL (9-23); CALCIUM LEVEL 8.3 MG/DL (8.3-10.6); CARBON DIOXIDE LEVEL 33 MMOL/L (20-31); CHLORIDE LEVEL 101 MMOL/L (98-107); CREATININE FOR GFR 1.05 MG/DL (0.70-1.30); GLOMERULAR FILTRATION RATE > 60.0 (>42); GLUCOSE, FASTING 126 MG/DL (74-106); POTASSIUM SERUM 4.2 MMOL/L (3.5-5.1); SODIUM LEVEL 139 MMOL/L (136-145)
[2022-06-18 07:13] LABS: ANISOCYTOSIS 1+; ATYPICAL LYMPH 2 % (0-5); LYMPHOCYTES 16 % (16-44); METAMYELOCYTES 3 % (0-0); MONOCYTES 2 % (0-5); MYELOCYTES 16 % (0-0); NEUTROPHILS 59 % (28-66); PLATELET ESTIMATE NORMAL (NORMAL)
[2022-06-18] MEDS: MIRALAX *UNIT DOSE* 17GM PACKET GT SCH (09:00)
[2022-06-18] MEDS: LORazepam 0.5 MG TAB GT SCH ×3 (09:49→20:28)
[2022-06-18] MEDS: LACTOBACILLUS ACIDOPHILUS CAP (BACID) PEG SCH ×3 (09:49→20:27)
[2022-06-18] MEDS: CitaloPRAM (CeleXA) 20 MG TAB GT SCH (09:49)
[2022-06-18] MEDS: ENOXAPARIN 40MG/0.4ML SYRINGE (J1650 PER 10MG) SC SCH (09:49)
[2022-06-18] MEDS: PANTOPRAZOLE 40MG VIAL IV SCH (09:49)
[2022-06-18] MEDS: VALPROIC ACID 250MG/5ML SOL ORAL SYRINGE *DRAW UP EXACT DOSE GT SCH ×2 (09:50→20:27)
[2022-06-18] MEDS: QUEtiapine FUMARATE 100 MG TAB GT SCH (09:50)
[2022-06-18] MEDS: methylPREDNISolone 40MG 1ML VIAL IV SCH ×2 (11:01→22:37)
[2022-06-18] MEDS: QUEtiapine FUMARATE 200 MG TAB GT SCH (20:27)
[2022-06-18] MEDS: SENNA 8.6 MG TAB (SENOKOT) GT SCH (20:27)
[2022-06-18] MEDS ORDERED: amLODIPine 5 MG TAB PO ONE (21:00)
[2022-06-19] VITALS (9 sets, daily range): BP systolic 107–143; BP diastolic 63–74; O2SAT 92–96
[2022-06-19] MEDS: PIPERACILLIN/TAZOBACTAM SOD 4.5 GM in D5W MINI-BAG PLUS 50 ML IV SCH ×2 (03:15→08:56)
[2022-06-19] MEDS: ALBUTEROL SULFATE 2.5MG/0.5ML INH NEB SOLN NEB SCH ×6 (03:42→23:12)
[2022-06-19] MEDS: SODIUM CHLORIDE HYPERTONIC 3% 15ML NEB SOL INH SCH ×6 (03:42→23:13)
[2022-06-19 05:48] LABS: HEMATOCRIT 34.3 % (42.0-52.0); HEMOGLOBIN 10.9 g/dl (13.5-17.5); MEAN CORPUSCULAR HGB CONC 31.8 g/dl (32.0-36.5); MEAN CORPUSCULAR VOLUME 97.4 fl (80.0-96.0); PLATELET COUNT, AUTOMATED 230 10^3/uL (150-450); RED BLOOD COUNT 3.52 10^6/uL (4.30-6.10); WHITE BLOOD COUNT 9.1 10^3/uL (4.0-10.0)
[2022-06-19 06:11] LABS: BLOOD UREA NITROGEN 33 MG/DL (9-23); CALCIUM LEVEL 8.1 MG/DL (8.3-10.6); CARBON DIOXIDE LEVEL 34 MMOL/L (20-31); CHLORIDE LEVEL 101 MMOL/L (98-107); CREATININE FOR GFR 1.05 MG/DL (0.70-1.30); GLOMERULAR FILTRATION RATE > 60.0 (>42); GLUCOSE, FASTING 125 MG/DL (74-106); POTASSIUM SERUM 4.5 MMOL/L (3.5-5.1); SODIUM LEVEL 140 MMOL/L (136-145)
[2022-06-19 06:17] LABS: ATYPICAL LYMPH 2 % (0-5); LYMPHOCYTES 10 % (16-44); METAMYELOCYTES 2 % (0-0); MONOCYTES 5 % (0-5); MYELOCYTES 7 % (0-0); NEUTROPHILS 68 % (28-66)
[2022-06-19 06:18] LABS: ANISOCYTOSIS 1+; PLATELET ESTIMATE NORMAL (NORMAL); POLYCHROMASIA 1+
[2022-06-19] MEDS: ENOXAPARIN 40MG/0.4ML SYRINGE (J1650 PER 10MG) SC SCH (08:55)
[2022-06-19] MEDS: QUEtiapine FUMARATE 100 MG TAB GT SCH (08:55)
[2022-06-19] MEDS: LACTOBACILLUS ACIDOPHILUS CAP (BACID) PEG SCH ×3 (08:55→21:40)
[2022-06-19] MEDS: PANTOPRAZOLE 40MG VIAL IV SCH (08:55)
[2022-06-19] MEDS: LORazepam 0.5 MG TAB GT SCH ×3 (08:55→21:41)
[2022-06-19] MEDS: CitaloPRAM (CeleXA) 20 MG TAB GT SCH (08:55)
[2022-06-19] MEDS: MIRALAX *UNIT DOSE* 17GM PACKET GT SCH (08:55)
[2022-06-19] MEDS: VALPROIC ACID 250MG/5ML SOL ORAL SYRINGE *DRAW UP EXACT DOSE GT SCH ×2 (08:56→21:40)
[2022-06-19] MEDS: methylPREDNISolone 40MG 1ML VIAL IV SCH ×2 (10:51→23:15)
[2022-06-19] MEDS: SENNA 8.6 MG TAB (SENOKOT) GT SCH (20:46)
[2022-06-19] MEDS: QUEtiapine FUMARATE 200 MG TAB GT SCH (21:40)
[2022-06-20] VITALS (15 sets, daily range): BP systolic 119–148; BP diastolic 62–83; O2SAT 90–95
[2022-06-20] MEDS: SODIUM CHLORIDE HYPERTONIC 3% 15ML NEB SOL INH SCH ×5 (03:52→19:25)
[2022-06-20] MEDS: ALBUTEROL SULFATE 2.5MG/0.5ML INH NEB SOLN NEB SCH ×5 (03:52→19:25)
[2022-06-20 05:15] LABS: HEMATOCRIT 32.3 % (42.0-52.0); HEMOGLOBIN 10.6 g/dl (13.5-17.5); MEAN CORPUSCULAR HGB CONC 32.8 g/dl (32.0-36.5); MEAN CORPUSCULAR VOLUME 97.6 fl (80.0-96.0); PLATELET COUNT, AUTOMATED 232 10^3/uL (150-450); RED BLOOD COUNT 3.31 10^6/uL (4.30-6.10); WHITE BLOOD COUNT 9.5 10^3/uL (4.0-10.0)
[2022-06-20 05:40] LABS: BLOOD UREA NITROGEN 23 MG/DL (9-23); CALCIUM LEVEL 8.3 MG/DL (8.3-10.6); CARBON DIOXIDE LEVEL 32 MMOL/L (20-31); CHLORIDE LEVEL 102 MMOL/L (98-107); CREATININE FOR GFR 0.97 MG/DL (0.70-1.30); GLOMERULAR FILTRATION RATE > 60.0 (>42); GLUCOSE, FASTING 111 MG/DL (74-106); POTASSIUM SERUM 4.1 MMOL/L (3.5-5.1); SODIUM LEVEL 140 MMOL/L (136-145)
[2022-06-20 05:51] LABS: LYMPHOCYTES 22 % (16-44); METAMYELOCYTES 2 % (0-0); MONOCYTES 1 % (0-5); MYELOCYTES 1 % (0-0); NEUTROPHILS 70 % (28-66); PLATELET ESTIMATE NORMAL (NORMAL)
[2022-06-20 05:52] LABS: ANISOCYTOSIS 1+
[2022-06-20] MEDS: PANTOPRAZOLE 40MG VIAL IV SCH (08:59)
[2022-06-20] MEDS: LORazepam 0.5 MG TAB GT SCH ×3 (08:59→21:01)
[2022-06-20] MEDS: MIRALAX *UNIT DOSE* 17GM PACKET GT SCH (08:59)
[2022-06-20] MEDS: LACTOBACILLUS ACIDOPHILUS CAP (BACID) PEG SCH ×3 (08:59→21:00)
[2022-06-20] MEDS: ENOXAPARIN 40MG/0.4ML SYRINGE (J1650 PER 10MG) SC SCH (09:01)
[2022-06-20] MEDS: CitaloPRAM (CeleXA) 20 MG TAB GT SCH (09:01)
[2022-06-20] MEDS: VALPROIC ACID 250MG/5ML SOL ORAL SYRINGE *DRAW UP EXACT DOSE GT SCH ×2 (09:01→21:01)
[2022-06-20] MEDS: QUEtiapine FUMARATE 100 MG TAB GT SCH (09:05)
[2022-06-20] MEDS: methylPREDNISolone 40MG 1ML VIAL IV SCH ×2 (11:14→22:35)
[2022-06-20] MEDS: QUEtiapine FUMARATE 200 MG TAB GT SCH (21:01)
[2022-06-20] MEDS: SENNA 8.6 MG TAB (SENOKOT) GT SCH (21:01)
[2022-06-21] VITALS (9 sets, daily range): BP systolic 112–139; BP diastolic 56–69; O2SAT 90–94
[2022-06-21] MEDS: SODIUM CHLORIDE HYPERTONIC 3% 15ML NEB SOL INH SCH ×6 (00:24→19:38)
[2022-06-21] MEDS: ALBUTEROL SULFATE 2.5MG/0.5ML INH NEB SOLN NEB SCH ×6 (00:24→19:38)
[2022-06-21] MEDS: PANTOPRAZOLE 40MG VIAL IV SCH (08:45)
[2022-06-21] MEDS: CitaloPRAM (CeleXA) 20 MG TAB GT SCH (08:45)
[2022-06-21] MEDS: QUEtiapine FUMARATE 100 MG TAB GT SCH (08:45)
[2022-06-21] MEDS: LACTOBACILLUS ACIDOPHILUS CAP (BACID) PEG SCH ×3 (08:45→20:46)
[2022-06-21] MEDS: ENOXAPARIN 40MG/0.4ML SYRINGE (J1650 PER 10MG) SC SCH (08:46)
[2022-06-21] MEDS: LORazepam 0.5 MG TAB GT SCH ×3 (08:46→20:46)
[2022-06-21] MEDS: MIRALAX *UNIT DOSE* 17GM PACKET GT SCH (08:46)
[2022-06-21] MEDS: VALPROIC ACID 250MG/5ML SOL ORAL SYRINGE *DRAW UP EXACT DOSE GT SCH ×2 (08:46→20:45)
[2022-06-21] MEDS: methylPREDNISolone 40MG 1ML VIAL IV SCH ×2 (11:05→23:03)
[2022-06-21] MEDS: SENNA 8.6 MG TAB (SENOKOT) GT SCH (20:46)
[2022-06-21] MEDS: QUEtiapine FUMARATE 200 MG TAB GT SCH (20:49)
[2022-06-22] MEDS: ALBUTEROL SULFATE 2.5MG/0.5ML INH NEB SOLN NEB SCH ×7 (02:21→23:57)
[2022-06-22] MEDS: SODIUM CHLORIDE HYPERTONIC 3% 15ML NEB SOL INH SCH ×7 (02:21→23:57)
[2022-06-22 05:27] VITALS: BP 120/64
[2022-06-22] MEDS ORDERED: ACETAMINOPHEN/CODEINE 300MG/30MG 12.5ML UDC PO ONE (05:40)
[2022-06-22] MEDS ORDERED: ACETAMINOPHEN 325MG/10.15ML UDC GT PRN (05:40)
[2022-06-22 06:32] LABS: BASO % 0.4 % (0.0-1.0); HEMOGLOBIN 10.5 g/dl (13.5-17.5); LYMPH # 0.7 10^3/uL (1.5-5.0); LYMPH % 9.9 % (24.0-44.0); MEAN CORPUSCULAR HEMOGLOBIN 31.1 pg (27.0-33.0); MEAN CORPUSCULAR HGB CONC 31.8 g/dl (32.0-36.5); MEAN CORPUSCULAR VOLUME 97.6 fl (80.0-96.0); MONO # 0.3 10^3/uL (0.0-0.8); MONO % 4.3 % (2.0-8.0); NEUTROPHILS # 6.1 10^3/uL (1.5-8.5); NEUTROPHILS % 81.3 % (36.0-66.0); PLATELET COUNT, AUTOMATED 241 10^3/uL (150-450); RED BLOOD COUNT 3.38 10^6/uL (4.30-6.10); WHITE BLOOD COUNT 7.5 10^3/uL (4.0-10.0)
[2022-06-22 07:04] LABS: BLOOD UREA NITROGEN 36 MG/DL (9-23); CALCIUM LEVEL 8.3 MG/DL (8.3-10.6); CARBON DIOXIDE LEVEL 32 MMOL/L (20-31); CHLORIDE LEVEL 103 MMOL/L (98-107); CREATININE FOR GFR 0.99 MG/DL (0.70-1.30); GLOMERULAR FILTRATION RATE > 60.0 (>42); GLUCOSE, FASTING 115 MG/DL (74-106); POTASSIUM SERUM 4.7 MMOL/L (3.5-5.1); SODIUM LEVEL 140 MMOL/L (136-145)
[2022-06-22] MEDS: LACTOBACILLUS ACIDOPHILUS CAP (BACID) PEG SCH ×3 (08:19→20:22)
[2022-06-22] MEDS: LORazepam 0.5 MG TAB GT SCH ×3 (08:19→20:22)
[2022-06-22] MEDS: CitaloPRAM (CeleXA) 20 MG TAB GT SCH (08:19)
[2022-06-22] MEDS: QUEtiapine FUMARATE 100 MG TAB GT SCH (08:19)
[2022-06-22] MEDS: ENOXAPARIN 40MG/0.4ML SYRINGE (J1650 PER 10MG) SC SCH (08:20)
[2022-06-22] MEDS: VALPROIC ACID 250MG/5ML SOL ORAL SYRINGE *DRAW UP EXACT DOSE GT SCH ×2 (08:20→20:22)
[2022-06-22] MEDS: PANTOPRAZOLE 40MG VIAL IV SCH (08:20)
[2022-06-22] MEDS: MIRALAX *UNIT DOSE* 17GM PACKET GT SCH (08:21)
[2022-06-22] MEDS ORDERED: predniSONE 20 MG TAB GT ONE (11:05)
[2022-06-22 14:00] VITALS: BP 104/59
[2022-06-22 16:02] VITALS: O2SAT 88
[2022-06-22] MEDS: QUEtiapine FUMARATE 200 MG TAB GT SCH (20:22)
[2022-06-22] MEDS: SENNA 8.6 MG TAB (SENOKOT) GT SCH (20:22)
[2022-06-22 20:53] VITALS: BP 131/60
[2022-06-23] MEDS: ALBUTEROL SULFATE 2.5MG/0.5ML INH NEB SOLN NEB SCH ×6 (03:35→23:41)
[2022-06-23] MEDS: SODIUM CHLORIDE HYPERTONIC 3% 15ML NEB SOL INH SCH ×6 (03:35→23:41)
[2022-06-23 06:00] VITALS: BP 131/55
[2022-06-23 06:51] LABS: BASO % 0.2 % (0.0-1.0); HEMATOCRIT 33.1 % (42.0-52.0); HEMOGLOBIN 10.3 g/dl (13.5-17.5); LYMPH # 1.7 10^3/uL (1.5-5.0); LYMPH % 19.3 % (24.0-44.0); MEAN CORPUSCULAR HGB CONC 31.1 g/dl (32.0-36.5); MEAN CORPUSCULAR VOLUME 99.7 fl (80.0-96.0); MONO # 0.6 10^3/uL (0.0-0.8); MONO % 6.9 % (2.0-8.0); NEUTROPHILS # 6.2 10^3/uL (1.5-8.5); NEUTROPHILS % 71.8 % (36.0-66.0); PLATELET COUNT, AUTOMATED 235 10^3/uL (150-450); RED BLOOD COUNT 3.32 10^6/uL (4.30-6.10); WHITE BLOOD COUNT 8.7 10^3/uL (4.0-10.0)
[2022-06-23 07:06] LABS: BLOOD UREA NITROGEN 34 MG/DL (9-23); CALCIUM LEVEL 8.2 MG/DL (8.3-10.6); CARBON DIOXIDE LEVEL 29 MMOL/L (20-31); CHLORIDE LEVEL 105 MMOL/L (98-107); GLOMERULAR FILTRATION RATE > 60.0 (>42); GLUCOSE, FASTING 74 MG/DL (74-106); POTASSIUM SERUM 4.5 MMOL/L (3.5-5.1); SODIUM LEVEL 141 MMOL/L (136-145)
[2022-06-23 08:17] LABS: ABG BASE EXCESS 6.9 (-2.0-2.0); ABG HCO3 30.4 MEQ/L (22.0-26.0); ABG O2 SATURATION 97.5 % (95.0-99.0); ABG PARTIAL PRESSURE CO2 39.3 mmHg (35.0-45.0); ABG PARTIAL PRESSURE O2 93.5 mmHg (75.0-100.0); ABG STANDARD HCO3 30.8 MEQ/L (22.0-26.0); ABG TOTAL CO2 31.7 MEQ/L (23.0-31.0); ABG pH (ARTERIAL) 7.507 UNITS (7.350-7.450)
[2022-06-23 08:30] VITALS: O2SAT 80
[2022-06-23 08:32] VITALS: O2SAT 93
[2022-06-23] MEDS ORDERED: predniSONE 10MG TAB PO SCH (09:00)
[2022-06-23] MEDS: MIRALAX *UNIT DOSE* 17GM PACKET GT SCH (10:25)
[2022-06-23] MEDS: LORazepam 0.5 MG TAB GT SCH ×3 (10:26→21:07)
[2022-06-23] MEDS: OMEPRAZOLE SUSPENSION 20MG 10ML ORAL SYRINGE FT SCH (10:26)
[2022-06-23] MEDS: QUEtiapine FUMARATE 100 MG TAB GT SCH (10:26)
[2022-06-23] MEDS: CitaloPRAM (CeleXA) 20 MG TAB GT SCH (10:26)
[2022-06-23] MEDS: predniSONE 10MG TAB FT SCH (10:27)
[2022-06-23] MEDS: ENOXAPARIN 40MG/0.4ML SYRINGE (J1650 PER 10MG) SC SCH (10:28)
[2022-06-23] MEDS: LACTOBACILLUS ACIDOPHILUS CAP (BACID) PEG SCH ×3 (10:28→21:11)
[2022-06-23] MEDS: VALPROIC ACID 250MG/5ML SOL ORAL SYRINGE *DRAW UP EXACT DOSE GT SCH ×2 (10:29→21:08)
[2022-06-23 14:00] VITALS: BP 124/60
[2022-06-23 20:00] VITALS: BP 136/72
[2022-06-23] MEDS: QUEtiapine FUMARATE 200 MG TAB GT SCH (21:06)
[2022-06-23] MEDS: SENNA 8.6 MG TAB (SENOKOT) GT SCH (21:07)
[2022-06-24] MEDS: SODIUM CHLORIDE HYPERTONIC 3% 15ML NEB SOL INH SCH ×3 (03:34→11:05)
[2022-06-24] MEDS: ALBUTEROL SULFATE 2.5MG/0.5ML INH NEB SOLN NEB SCH ×3 (03:34→11:06)
[2022-06-24 06:00] VITALS: BP 105/54
[2022-06-24 07:16] LABS: BASO % 0.2 % (0.0-1.0); EOS % 0.2 % (0.0-3.0); HEMATOCRIT 32.9 % (42.0-52.0); HEMOGLOBIN 10.2 g/dl (13.5-17.5); LYMPH # 1.5 10^3/uL (1.5-5.0); MEAN CORPUSCULAR HEMOGLOBIN 30.5 pg (27.0-33.0); MEAN CORPUSCULAR VOLUME 98.5 fl (80.0-96.0); MONO # 0.5 10^3/uL (0.0-0.8); MONO % 7.4 % (2.0-8.0); NEUTROPHILS # 4.6 10^3/uL (1.5-8.5); NEUTROPHILS % 69.1 % (36.0-66.0); PLATELET COUNT, AUTOMATED 228 10^3/uL (150-450); RED BLOOD COUNT 3.34 10^6/uL (4.30-6.10); WHITE BLOOD COUNT 6.6 10^3/uL (4.0-10.0)
[2022-06-24 07:36] LABS: BLOOD UREA NITROGEN 29 MG/DL (9-23); CALCIUM LEVEL 8.1 MG/DL (8.3-10.6); CARBON DIOXIDE LEVEL 32 MMOL/L (20-31); CHLORIDE LEVEL 104 MMOL/L (98-107); CREATININE FOR GFR 0.99 MG/DL (0.70-1.30); GLOMERULAR FILTRATION RATE > 60.0 (>42); GLUCOSE, FASTING 65 MG/DL (74-106); SODIUM LEVEL 141 MMOL/L (136-145)
[2022-06-24 08:07] VITALS: BP 110/56
[2022-06-24] MEDS: CitaloPRAM (CeleXA) 20 MG TAB GT SCH (08:09)
[2022-06-24] MEDS: LACTOBACILLUS ACIDOPHILUS CAP (BACID) PEG SCH (08:09)
[2022-06-24] MEDS: QUEtiapine FUMARATE 100 MG TAB GT SCH (08:09)
[2022-06-24] MEDS: LORazepam 0.5 MG TAB GT SCH (08:09)
[2022-06-24] MEDS: predniSONE 10MG TAB FT SCH (08:10)
[2022-06-24] MEDS: OMEPRAZOLE SUSPENSION 20MG 10ML ORAL SYRINGE FT SCH (08:16)
[2022-06-24] MEDS: ENOXAPARIN 40MG/0.4ML SYRINGE (J1650 PER 10MG) SC SCH (08:16)
[2022-06-24] MEDS: MIRALAX *UNIT DOSE* 17GM PACKET GT SCH (08:16)
[2022-06-24 09:00] LABS: VALPROIC ACID (DEPAKOTE) 71.3 UG/ML (50.0-100.0)
[2022-06-24 10:52] VITALS: O2SAT 94
[2022-06-24] MEDS ORDERED: PRED10TA2 FT (10:56)
[2022-06-24] MEDS ORDERED: RISATAB3 PEG (10:56)
[2022-06-24] MEDS: VALPROIC ACID 250MG/5ML SOL ORAL SYRINGE *DRAW UP EXACT DOSE GT SCH (11:53)
[2022-06-24 14:00] VITALS: BP 102/54
== END 2022-06-24 16:26 | disposition home or self-care (01) | DRG 177 ==
LOC: M ED 21:03 → M ED INP 06-12 02:10 → M PCU 06-12 04:09 → M MSPAV 06-21 17:09
PROVIDERS: ADMIT Internal Medicine; ATTEND Student in an Organized Health Care Education/Training Program
DX: J15.1 Pneumonia due to Pseudomonas (principal); J96.01 Acute respiratory failure with hypoxia; E87.20 Acidosis, unspecified; E87.1 Hypo-osmolality and hyponatremia; J98.11 Atelectasis; E87.5 Hyperkalemia; E02 Subclinical iodine-deficiency hypothyroidism; R91.1 Solitary pulmonary nodule; F20.9 Schizophrenia, unspecified; D53.9 Nutritional anemia, unspecified; J12.2 Parainfluenza virus pneumonia; R13.10 Dysphagia, unspecified; G40.909 Epilepsy, unspecified, not intractable, without status epilepticus; R33.9 Retention of urine, unspecified; K21.9 Gastro-esophageal reflux disease without esophagitis; F71 Moderate intellectual disabilities; Z20.822 Contact with and (suspected) exposure to COVID-19; Z79.899 Other long term (current) drug therapy; Z88.8 Allergy status to other drugs, medicaments and biological substances; Z93.1 Gastrostomy status

== ENCOUNTER 2022-07-13 13:12 | Inpatient (IN) | payer MEDICARE, MEDICAID ==
[2022-07-12 14:48] VITALS: BP 134/60
[~2022-07-13] VITALS: Ht 160 cm; Wt 73.3 kg
[~2022-07-13 13:12] MED LIST changes: +ATIV1TAB10 GT; +CITA20TA7 GT; +CULT10CA4 GT; +PRED10TA2 FT; +RISATAB3 PEG
[2022-07-13 14:38] LABS: VENOUS BASE EXCESS -0.7 (-2.0-2.0); VENOUS HCO3 26.4 MMOL/L (23.0-27.0); VENOUS O2 SATURATION 61.5 % (60.0-80.0); VENOUS PARTIAL PRESSURE O2 35.6 mmHg (30.0-50.0); VENOUS PH 7.307 UNITS (7.330-7.430); VENOUS STANDARD HCO3 23.1 MMOL/L; VENOUS TOTAL CO2 28.1 MMOL/L (24.0-28.0)
[2022-07-13 14:46] LABS: BASO % 0.7 % (0.0-1.0); EOS # 0.1 10^3/uL (0.0-0.5); EOS % 2.3 % (0.0-3.0); HEMATOCRIT 37.3 % (42.0-52.0); HEMOGLOBIN 12.3 g/dl (13.5-17.5); LYMPH # 1.2 10^3/uL (1.5-5.0); LYMPH % 27.9 % (24.0-44.0); MEAN CORPUSCULAR VOLUME 97.1 fl (80.0-96.0); MONO # 0.5 10^3/uL (0.0-0.8); NEUTROPHILS # 2.4 10^3/uL (1.5-8.5); NEUTROPHILS % 55.8 % (36.0-66.0); RED BLOOD COUNT 3.84 10^6/uL (4.30-6.10); WHITE BLOOD COUNT 4.3 10^3/uL (4.0-10.0)
[2022-07-13 15:04] LABS: INR 0.87
[2022-07-13 15:16] LABS: CK-MB VALUE MASS < 1.0 NG/ML (<3.6)
[2022-07-13 15:19] LABS: ALKALINE PHOSPHATASE 100 U/L (46-116); ALT/SGPT 20 U/L (7.0-40); AST/SGOT 23 U/L (<34); BILIRUBIN,DIRECT < 0.1 MG/DL (<0.4); BILIRUBIN,TOTAL 0.2 MG/DL (0.3-1.2); BLOOD UREA NITROGEN 18 MG/DL (9-23); CALCIUM LEVEL 9.2 MG/DL (8.3-10.6); CARBON DIOXIDE LEVEL 31 MMOL/L (20-31); CHLORIDE LEVEL 95 MMOL/L (98-107); CREATININE FOR GFR 0.91 MG/DL (0.70-1.30); GLOMERULAR FILTRATION RATE > 60.0 (>42); GLUCOSE, FASTING 112 MG/DL (74-106); POTASSIUM SERUM 4.4 MMOL/L (3.5-5.1); SODIUM LEVEL 134 MMOL/L (136-145); TOTAL PROTEIN 6.6 G/DL (5.7-8.2)
[2022-07-13 15:20] LABS: THYROID STIMULATING HORMONE 3.173 uIU/ML (0.55-4.78)
[2022-07-13 15:21] LABS: CPK CREATINE PHOSPHOKINASE 81 U/L (46-171); MB/CK RELATIVE INDEX 1.23 (< OR =4)
[2022-07-13] MEDS ORDERED: ISOVUE-370 76% 100ML VIAL As Ordered ONE (16:04)
[2022-07-13] MEDS ORDERED: PIPERACILLIN/TAZOBACTAM SOD 3.375 GM in D5W MINI-BAG PLUS 50 ML IV ONE (19:55)
[2022-07-13] MEDS ORDERED: DESI13CR2 TOP (20:47)
[2022-07-13] MEDS ORDERED: CITR500T PO (20:47)
[2022-07-13] MEDS ORDERED: NEOM28.3 TOP (20:47)
[2022-07-13] MEDS ORDERED: IBUP-1824 PO (20:47)
[2022-07-13] MEDS ORDERED: NYST1POW9 TOP (20:47)
[2022-07-13] MEDS ORDERED: ACET1TAB55 PO (20:47)
[2022-07-13] MEDS ORDERED: HOME MED LIST COMPLETE! XX SCH (20:50)
[2022-07-13] MEDS ORDERED: ALBUTEROL SULFATE 2.5MG/0.5ML INH NEB SOLN INH PRN (23:20)
[2022-07-14] MEDS: PIPERACILLIN/TAZOBACTAM SOD 4.5 GM in D5W MINI-BAG PLUS 50 ML IV SCH ×4 (01:48→20:50)
[2022-07-14] MEDS: IPRATROPIUM 0.5MG/ALBUTEROL 2.5MG INH SOL UD 3ML (DUONEB) INH SCH ×4 (01:50→20:54)
[2022-07-14] MEDS ORDERED: NS 1,000 ML IV ONE (02:00)
[2022-07-14] MEDS: DOXYCYCLINE HYCLATE 100 MG in D5W MINI-BAG PLUS 100 ML IV SCH ×2 (02:22→16:23)
[2022-07-14] MEDS ORDERED: HEPARIN SOD (PORCINE) 5000UNITS/ML 1ML VIAL/SYRINGE SC SCH ×3 (06:00→14:00)
[2022-07-14 06:12] LABS: BLOOD UREA NITROGEN 16 MG/DL (9-23); CALCIUM LEVEL 8.8 MG/DL (8.3-10.6); CARBON DIOXIDE LEVEL 33 MMOL/L (20-31); CHLORIDE LEVEL 97 MMOL/L (98-107); CREATININE FOR GFR 0.94 MG/DL (0.70-1.30); GLOMERULAR FILTRATION RATE > 60.0 (>42); GLUCOSE, FASTING 85 MG/DL (74-106); SODIUM LEVEL 135 MMOL/L (136-145)
[2022-07-14] MEDS: PANTOPRAZOLE 40MG TAB (PROTONIX) PO SCH (08:12)
[2022-07-14] MEDS: CitaloPRAM (CeleXA) 20 MG TAB GT SCH (08:12)
[2022-07-14] MEDS: LORazepam 0.5 MG TAB GT SCH ×4 (08:12→20:51)
[2022-07-14] MEDS: QUEtiapine FUMARATE 100 MG TAB GT SCH (08:12)
[2022-07-14] MEDS: VALPROIC ACID 250MG/5ML SOL ORAL SYRINGE *DRAW UP EXACT DOSE GT SCH ×2 (10:48→20:50)
[2022-07-14] MEDS: NYSTATIN 100,000 UNITS/GM TOPICAL PWD 15GM TOP SCH ×2 (10:49→20:50)
[2022-07-14] MEDS: methylPREDNISolone 125MG 2ML VIAL IV SCH (11:55)
[2022-07-14] MEDS: ACETAMINOPHEN TAB 650MG DOSE (2X325MG) PO PRN (11:55)
[2022-07-14 13:23] LABS: HEMATOCRIT 36.7 % (42.0-52.0); MEAN CORPUSCULAR HGB CONC 32.7 g/dl (32.0-36.5); MEAN CORPUSCULAR VOLUME 97.9 fl (80.0-96.0); RED BLOOD COUNT 3.75 10^6/uL (4.30-6.10); WHITE BLOOD COUNT 3.6 10^3/uL (4.0-10.0)
[2022-07-14 13:52] LABS: PLATELET COUNT, AUTOMATED 75 10^3/uL (150-450)
[2022-07-14] MEDS: SODIUM CHLORIDE HYPERTONIC 3% 15ML NEB SOL INH SCH ×4 (13:56→21:01)
[2022-07-14] MEDS: ALBUTEROL SULFATE 2.5MG/0.5ML INH NEB SOLN NEB PRN (15:36)
[2022-07-14 16:00] VITALS: BP 125/61
[2022-07-14] MEDS ORDERED: VANCOMYCIN HCL 1,000 MG, VIAL MATE ADAPTER 1 EACH in D5W 250 ML IV SCH (17:20)
[2022-07-14] MEDS ORDERED: VANCOMYCIN HCL 750 MG, VIAL MATE ADAPTER 1 EACH in D5W 250 ML IV ONE ×2 (18:00→19:00)
[2022-07-14 20:18] VITALS: BP 149/67
[2022-07-14] MEDS: SENNA 8.6 MG TAB (SENOKOT) GT SCH (20:51)
[2022-07-14] MEDS: QUEtiapine FUMARATE 200 MG TAB GT SCH (20:51)
[2022-07-15 00:07] VITALS: BP 142/63
[2022-07-15] MEDS: methylPREDNISolone 125MG 2ML VIAL IV SCH ×2 (00:42→12:59)
[2022-07-15] MEDS: IPRATROPIUM 0.5MG/ALBUTEROL 2.5MG INH SOL UD 3ML (DUONEB) INH SCH ×4 (02:00→19:52)
[2022-07-15] MEDS: SODIUM CHLORIDE HYPERTONIC 3% 15ML NEB SOL INH SCH ×6 (02:22→19:52)
[2022-07-15] MEDS: ALBUTEROL SULFATE 2.5MG/0.5ML INH NEB SOLN NEB PRN (02:22)
[2022-07-15] MEDS: PIPERACILLIN/TAZOBACTAM SOD 4.5 GM in D5W MINI-BAG PLUS 50 ML IV SCH ×4 (02:48→20:42)
[2022-07-15 04:22] VITALS: BP 156/56
[2022-07-15] MEDS: VANCOMYCIN HCL 750 MG, VIAL MATE ADAPTER 1 EACH in D5W 250 ML IV SCH ×2 (05:52→18:20)
[2022-07-15 06:15] LABS: HEMATOCRIT 29.4 % (42.0-52.0); HEMOGLOBIN 9.8 g/dl (13.5-17.5); MEAN CORPUSCULAR HEMOGLOBIN 31.7 pg (27.0-33.0); MEAN CORPUSCULAR HGB CONC 33.3 g/dl (32.0-36.5); MEAN CORPUSCULAR VOLUME 95.1 fl (80.0-96.0); PLATELET COUNT, AUTOMATED 125 10^3/uL (150-450); RED BLOOD COUNT 3.09 10^6/uL (4.30-6.10); WHITE BLOOD COUNT 10.9 10^3/uL (4.0-10.0)
[2022-07-15 06:44] LABS: CALCIUM LEVEL 9.5 MG/DL (8.3-10.6); CREATININE FOR GFR 1.3 MG/DL (0.70-1.30); GLOMERULAR FILTRATION RATE 57.9 (>42); POTASSIUM SERUM 4.6 MMOL/L (3.5-5.1)
[2022-07-15 07:56] VITALS: BP 128/60
[2022-07-15] MEDS: PANTOPRAZOLE 40MG TAB (PROTONIX) PO SCH (09:00)
[2022-07-15] MEDS: VALPROIC ACID 250MG/5ML SOL ORAL SYRINGE *DRAW UP EXACT DOSE GT SCH ×2 (09:34→20:42)
[2022-07-15] MEDS: QUEtiapine FUMARATE 100 MG TAB GT SCH (09:34)
[2022-07-15] MEDS: CitaloPRAM (CeleXA) 20 MG TAB GT SCH (09:35)
[2022-07-15] MEDS: NYSTATIN 100,000 UNITS/GM TOPICAL PWD 15GM TOP SCH ×2 (09:35→20:42)
[2022-07-15] MEDS: LORazepam 0.5 MG TAB GT SCH ×4 (09:35→20:42)
[2022-07-15] MEDS: NS 1,000 ML IV SCH (10:40)
[2022-07-15 11:40] VITALS: BP 121/57
[2022-07-15 16:00] VITALS: BP 130/60
[2022-07-15 20:03] VITALS: BP 123/69
[2022-07-15] MEDS: QUEtiapine FUMARATE 200 MG TAB GT SCH (20:42)
[2022-07-15] MEDS: SENNA 8.6 MG TAB (SENOKOT) GT SCH (20:42)
[2022-07-16 00:22] VITALS: BP 131/68
[2022-07-16] MEDS: SODIUM CHLORIDE HYPERTONIC 3% 15ML NEB SOL INH SCH ×7 (00:35→23:55)
[2022-07-16] MEDS: IPRATROPIUM 0.5MG/ALBUTEROL 2.5MG INH SOL UD 3ML (DUONEB) INH SCH ×5 (00:36→23:56)
[2022-07-16] MEDS: methylPREDNISolone 125MG 2ML VIAL IV SCH (00:47)
[2022-07-16] MEDS: NS 1,000 ML IV SCH (01:33)
[2022-07-16] MEDS: PIPERACILLIN/TAZOBACTAM SOD 4.5 GM in D5W MINI-BAG PLUS 50 ML IV SCH ×4 (01:34→20:40)
[2022-07-16] MEDS: ALBUTEROL SULFATE 2.5MG/0.5ML INH NEB SOLN NEB PRN (03:09)
[2022-07-16 04:37] VITALS: BP 116/58
[2022-07-16] MEDS: VANCOMYCIN HCL 750 MG, VIAL MATE ADAPTER 1 EACH in D5W 250 ML IV SCH (05:47)
[2022-07-16 06:32] LABS: HEMATOCRIT 26.6 % (42.0-52.0); HEMOGLOBIN 8.7 g/dl (13.5-17.5); MEAN CORPUSCULAR HEMOGLOBIN 31.4 pg (27.0-33.0); MEAN CORPUSCULAR HGB CONC 32.7 g/dl (32.0-36.5); PLATELET COUNT, AUTOMATED 139 10^3/uL (150-450); RED BLOOD COUNT 2.77 10^6/uL (4.30-6.10); WHITE BLOOD COUNT 13.2 10^3/uL (4.0-10.0)
[2022-07-16 07:02] LABS: BLOOD UREA NITROGEN 28 MG/DL (9-23); CALCIUM LEVEL 8.2 MG/DL (8.3-10.6); CARBON DIOXIDE LEVEL 30 MMOL/L (20-31); CHLORIDE LEVEL 88 MMOL/L (98-107); GLOMERULAR FILTRATION RATE > 60.0 (>42); GLUCOSE, FASTING 240 MG/DL (74-106); POTASSIUM SERUM 4.5 MMOL/L (3.5-5.1); SODIUM LEVEL 125 MMOL/L (136-145)
[2022-07-16 07:53] VITALS: BP 105/51
[2022-07-16] MEDS: CitaloPRAM (CeleXA) 20 MG TAB GT SCH (08:37)
[2022-07-16] MEDS: LORazepam 0.5 MG TAB GT SCH ×4 (08:37→20:41)
[2022-07-16] MEDS: QUEtiapine FUMARATE 100 MG TAB GT SCH (08:37)
[2022-07-16] MEDS: PANTOPRAZOLE 40MG TAB (PROTONIX) PO SCH (08:37)
[2022-07-16] MEDS: VALPROIC ACID 250MG/5ML SOL ORAL SYRINGE *DRAW UP EXACT DOSE GT SCH ×2 (08:38→20:40)
[2022-07-16] MEDS: NYSTATIN 100,000 UNITS/GM TOPICAL PWD 15GM TOP SCH ×2 (08:39→20:40)
[2022-07-16] MEDS: SODIUM CHLORIDE 1 GM TAB GT SCH ×3 (09:48→20:40)
[2022-07-16] MEDS: methylPREDNISolone 40MG 1ML VIAL IV SCH (12:44)
[2022-07-16 15:47] VITALS: BP 114/58
[2022-07-16 20:00] VITALS: BP 129/60
[2022-07-16] MEDS: SENNA 8.6 MG TAB (SENOKOT) GT SCH (20:41)
[2022-07-16] MEDS: QUEtiapine FUMARATE 200 MG TAB GT SCH (20:41)
[2022-07-17] MEDS: methylPREDNISolone 40MG 1ML VIAL IV SCH (00:34)
[2022-07-17] MEDS: PIPERACILLIN/TAZOBACTAM SOD 4.5 GM in D5W MINI-BAG PLUS 50 ML IV SCH ×4 (02:50→20:00)
[2022-07-17] MEDS ORDERED: TRIAMCINOLONE ACET 0.1% CREAM 15GM TOP ONE (03:00)
[2022-07-17] MEDS: SODIUM CHLORIDE HYPERTONIC 3% 15ML NEB SOL INH SCH ×2 (03:26→08:49)
[2022-07-17] MEDS: ALBUTEROL SULFATE 2.5MG/0.5ML INH NEB SOLN NEB PRN (03:26)
[2022-07-17 04:00] VITALS: BP 126/60
[2022-07-17 04:16] LABS: HEMATOCRIT 29.8 % (42.0-52.0); HEMOGLOBIN 9.9 g/dl (13.5-17.5); MEAN CORPUSCULAR HEMOGLOBIN 31.9 pg (27.0-33.0); MEAN CORPUSCULAR HGB CONC 33.2 g/dl (32.0-36.5); MEAN CORPUSCULAR VOLUME 96.1 fl (80.0-96.0); PLATELET COUNT, AUTOMATED 178 10^3/uL (150-450)
[2022-07-17 04:39] LABS: BLOOD UREA NITROGEN 27 MG/DL (9-23); CALCIUM LEVEL 8.7 MG/DL (8.3-10.6); CARBON DIOXIDE LEVEL 30 MMOL/L (20-31); CHLORIDE LEVEL 95 MMOL/L (98-107); CREATININE FOR GFR 0.92 MG/DL (0.70-1.30); GLOMERULAR FILTRATION RATE > 60.0 (>42); GLUCOSE, FASTING 191 MG/DL (74-106); POTASSIUM SERUM 4.4 MMOL/L (3.5-5.1); SODIUM LEVEL 132 MMOL/L (136-145)
[2022-07-17 08:18] LABS: SODIUM,RANDOM URINE 48 MMOL/L
[2022-07-17 08:35] VITALS: BP 112/56
[2022-07-17] MEDS: IPRATROPIUM 0.5MG/ALBUTEROL 2.5MG INH SOL UD 3ML (DUONEB) INH SCH ×2 (08:48→19:28)
[2022-07-17] MEDS: VALPROIC ACID 250MG/5ML SOL ORAL SYRINGE *DRAW UP EXACT DOSE GT SCH ×2 (09:17→21:27)
[2022-07-17] MEDS: SODIUM CHLORIDE 1 GM TAB GT SCH ×3 (09:17→21:26)
[2022-07-17] MEDS: PANTOPRAZOLE 40MG TAB (PROTONIX) PO SCH (09:19)
[2022-07-17] MEDS: CitaloPRAM (CeleXA) 20 MG TAB GT SCH (09:19)
[2022-07-17] MEDS: predniSONE 20 MG TAB GT SCH (09:19)
[2022-07-17] MEDS: LORazepam 0.5 MG TAB GT SCH ×4 (09:19→21:26)
[2022-07-17] MEDS: QUEtiapine FUMARATE 100 MG TAB GT SCH (09:19)
[2022-07-17] MEDS: NYSTATIN 100,000 UNITS/GM TOPICAL PWD 15GM TOP SCH ×2 (09:20→21:27)
[2022-07-17 09:41] LABS: OSMOLALITY URINE 405 MOSM/KG (50-1400)
[2022-07-17 20:57] VITALS: BP 133/70
[2022-07-17] MEDS: SENNA 8.6 MG TAB (SENOKOT) GT SCH (21:26)
[2022-07-17] MEDS: QUEtiapine FUMARATE 200 MG TAB GT SCH (21:26)
[2022-07-18] MEDS: ACETAMINOPHEN TAB 650MG DOSE (2X325MG) PO PRN ×2 (01:38→21:59)
[2022-07-18] MEDS: PIPERACILLIN/TAZOBACTAM SOD 4.5 GM in D5W MINI-BAG PLUS 50 ML IV SCH ×4 (02:56→19:58)
[2022-07-18 05:51] LABS: HEMATOCRIT 28.8 % (42.0-52.0); HEMOGLOBIN 9.3 g/dl (13.5-17.5); MEAN CORPUSCULAR HEMOGLOBIN 31.6 pg (27.0-33.0); MEAN CORPUSCULAR HGB CONC 32.3 g/dl (32.0-36.5); PLATELET COUNT, AUTOMATED 188 10^3/uL (150-450); RED BLOOD COUNT 2.94 10^6/uL (4.30-6.10); WHITE BLOOD COUNT 11.4 10^3/uL (4.0-10.0)
[2022-07-18 06:16] LABS: BLOOD UREA NITROGEN 33 MG/DL (9-23); CALCIUM LEVEL 8.5 MG/DL (8.3-10.6); CARBON DIOXIDE LEVEL 32 MMOL/L (20-31); CHLORIDE LEVEL 102 MMOL/L (98-107); GLOMERULAR FILTRATION RATE > 60.0 (>42); GLUCOSE, FASTING 123 MG/DL (74-106); POTASSIUM SERUM 3.8 MMOL/L (3.5-5.1); SODIUM LEVEL 138 MMOL/L (136-145)
[2022-07-18] MEDS: IPRATROPIUM 0.5MG/ALBUTEROL 2.5MG INH SOL UD 3ML (DUONEB) INH SCH ×2 (08:15→19:38)
[2022-07-18] MEDS: SODIUM CHLORIDE 1 GM TAB GT SCH (08:30)
[2022-07-18] MEDS: CitaloPRAM (CeleXA) 20 MG TAB GT SCH (08:30)
[2022-07-18] MEDS: LORazepam 0.5 MG TAB GT SCH ×4 (08:30→21:59)
[2022-07-18] MEDS: predniSONE 20 MG TAB GT SCH (08:31)
[2022-07-18] MEDS: VALPROIC ACID 250MG/5ML SOL ORAL SYRINGE *DRAW UP EXACT DOSE GT SCH ×2 (08:31→21:59)
[2022-07-18] MEDS: PANTOPRAZOLE 40MG TAB (PROTONIX) PO SCH (08:31)
[2022-07-18] MEDS: QUEtiapine FUMARATE 100 MG TAB GT SCH (08:31)
[2022-07-18] MEDS: NYSTATIN 100,000 UNITS/GM TOPICAL PWD 15GM TOP SCH ×2 (08:32→22:00)
[2022-07-18 14:45] VITALS: BP 117/59
[2022-07-18 20:02] VITALS: BP 129/59
[2022-07-18] MEDS: SENNA 8.6 MG TAB (SENOKOT) GT SCH (21:59)
[2022-07-18] MEDS: QUEtiapine FUMARATE 200 MG TAB GT SCH (21:59)
[2022-07-19 05:02] VITALS: BP 144/79
[2022-07-19 06:29] LABS: HEMATOCRIT 30.2 % (42.0-52.0); HEMOGLOBIN 9.9 g/dl (13.5-17.5); MEAN CORPUSCULAR HGB CONC 32.8 g/dl (32.0-36.5); MEAN CORPUSCULAR VOLUME 97.7 fl (80.0-96.0); PLATELET COUNT, AUTOMATED 216 10^3/uL (150-450); RED BLOOD COUNT 3.09 10^6/uL (4.30-6.10); WHITE BLOOD COUNT 10.2 10^3/uL (4.0-10.0)
[2022-07-19 06:50] LABS: BLOOD UREA NITROGEN 33 MG/DL (9-23); CALCIUM LEVEL 8.6 MG/DL (8.3-10.6); CARBON DIOXIDE LEVEL 31 MMOL/L (20-31); CHLORIDE LEVEL 102 MMOL/L (98-107); CREATININE FOR GFR 1.02 MG/DL (0.70-1.30); GLOMERULAR FILTRATION RATE > 60.0 (>42); GLUCOSE, FASTING 63 MG/DL (74-106); POTASSIUM SERUM 4.3 MMOL/L (3.5-5.1); SODIUM LEVEL 138 MMOL/L (136-145)
[2022-07-19] MEDS: IPRATROPIUM 0.5MG/ALBUTEROL 2.5MG INH SOL UD 3ML (DUONEB) INH SCH (08:30)
[2022-07-19] MEDS: LORazepam 0.5 MG TAB GT SCH ×2 (10:28→12:57)
[2022-07-19] MEDS: VALPROIC ACID 250MG/5ML SOL ORAL SYRINGE *DRAW UP EXACT DOSE GT SCH (10:28)
[2022-07-19] MEDS: CitaloPRAM (CeleXA) 20 MG TAB GT SCH (10:28)
[2022-07-19] MEDS: PANTOPRAZOLE 40MG TAB (PROTONIX) PO SCH (10:29)
[2022-07-19] MEDS: QUEtiapine FUMARATE 100 MG TAB GT SCH (10:29)
[2022-07-19] MEDS: NYSTATIN 100,000 UNITS/GM TOPICAL PWD 15GM TOP SCH (10:29)
== END 2022-07-19 13:25 | disposition home or self-care (01) | DRG 177 ==
LOC: M ED 13:12 → M ED INP 21:02 → ENRESERV 07-14 13:00 → M PCU 07-14 14:50 → M MS5PR 07-17 14:54
PROVIDERS: ADMIT Internal Medicine; ATTEND Internal Medicine Nephrology
DX: J69.0 Pneumonitis due to inhalation of food and vomit (principal); J96.01 Acute respiratory failure with hypoxia; E87.20 Acidosis, unspecified; N17.9 Acute kidney failure, unspecified; E22.2 Syndrome of inappropriate secretion of antidiuretic hormone; F72 Severe intellectual disabilities; K21.9 Gastro-esophageal reflux disease without esophagitis; N18.30 Chronic kidney disease, stage 3 unspecified; F20.9 Schizophrenia, unspecified; R13.12 Dysphagia, oropharyngeal phase; R73.01 Impaired fasting glucose; R91.8 Other nonspecific abnormal finding of lung field; D69.6 Thrombocytopenia, unspecified; J15.6 Pneumonia due to other Gram-negative bacteria; D63.8 Anemia in other chronic diseases classified elsewhere; Z88.8 Allergy status to other drugs, medicaments and biological substances; Z79.899 Other long term (current) drug therapy; K59.00 Constipation, unspecified

== ENCOUNTER → 2022-08-07 | Outpatient (CLI) | payer MEDICARE, MEDICAID ==
[~2022-08-07] MED LIST changes: +ACET1TAB55 PO; +CITR500T PO; +DESI13CR2 TOP; +IBUP-1824 PO; +NEOM28.3 TOP; +NYST1POW9 TOP
[2022-08-07 10:58] LABS: FREE T4 1.04 NG/DL (0.89-1.76)
[2022-08-07 10:59] LABS: THYROID STIMULATING HORMONE 4.842 uIU/ML (0.55-4.78)
== END ==
LOC: M LAB 10:01
PROVIDERS: ATTEND Nurse Practitioner Family
DX: R79.89 Other specified abnormal findings of blood chemistry (principal)

== ENCOUNTER → 2022-10-13 | Outpatient (CLI) | payer MEDICARE, MEDICAID | LOC: M RAD 07:45 | PROVIDERS: ATTEND Nurse Practitioner Family | DX: R91.1 Solitary pulmonary nodule (principal); R91.8 Other nonspecific abnormal finding of lung field ==

== ENCOUNTER 2022-12-03 11:12 | Day surgery (SDC) | payer MEDICARE, MEDICAID ==
[~2022-12-03] VITALS: Ht 160 cm; Wt 76.2 kg
[~2022-12-03 11:12] MED LIST changes: +CULT10CA4 PO; +NS 1,000 ML IV ONE
[2022-12-03] MEDS ORDERED: METOCLOPRAMIDE INJ 10MG/2ML VIAL As Ordered ONE (12:43)
[2022-12-03 13:02] VITALS: TEMP 96.1
[2022-12-03 13:29] VITALS: BP 144/71; O2SAT 98
== END 2022-12-03 13:30 | disposition home or self-care (01) ==
LOC: M OPP 11:12
PROVIDERS: ATTEND Surgery
DX: D12.6 Benign neoplasm of colon, unspecified (principal); R93.3 Abnormal findings on diagnostic imaging of other parts of digestive tract; Q43.8 Other specified congenital malformations of intestine; Z53.9 Procedure and treatment not carried out, unspecified reason; Z79.1 Long term (current) use of non-steroidal anti-inflammatories (NSAID); Z79.51 Long term (current) use of inhaled steroids; Z79.83 Long term (current) use of bisphosphonates; Z79.899 Other long term (current) drug therapy; Z88.0 Allergy status to penicillin; Z88.5 Allergy status to narcotic agent
CPT/HCPCS: 45380; 88305; J2765

== ENCOUNTER → 2023-01-07 | Outpatient (CLI) | payer MEDICARE, MEDICAID ==
[~2023-01-07] MED LIST changes: -NS 1,000 ML IV ONE
== END ==
LOC: M RAD 09:42
PROVIDERS: ATTEND Internal Medicine Pulmonary Disease
DX: R91.8 Other nonspecific abnormal finding of lung field (principal); Z93.1 Gastrostomy status; N62 Hypertrophy of breast; K76.0 Fatty (change of) liver, not elsewhere classified; R59.0 Localized enlarged lymph nodes

== ENCOUNTER → 2023-01-13 | Outpatient (CLI) | payer MEDICARE, MEDICAID | LOC: M LAB 12:17 | PROVIDERS: ATTEND Internal Medicine Pulmonary Disease | DX: R91.8 Other nonspecific abnormal finding of lung field (principal) ==

== ENCOUNTER → 2023-01-24 | Outpatient (CLI) | payer MEDICARE, MEDICAID | LOC: M RAD 10:53 | PROVIDERS: ATTEND Nurse Practitioner Family | DX: N32.89 Other specified disorders of bladder (principal) ==

== ENCOUNTER 2023-02-06 10:52 | Inpatient (IN) | payer MEDICARE, MEDICAID ==
[~2023-02-06] VITALS: Ht 160 cm; Wt 83.7 kg
[2023-02-06] VITALS (8 sets, daily range): BP systolic 111–122; BP diastolic 56–73; TEMP 98.2–98.6; O2SAT 94–97
[2023-02-06] MEDS ORDERED: cefTRIAXone SOD 2 GM in D5W MINI-BAG PLUS 50 ML IV ONE (11:20)
[2023-02-06] MEDS ORDERED: AZITHROMYCIN INJ 500 MG, VIAL MATE ADAPTER 1 EACH in D5W 250 ML IV ONE (11:20)
[2023-02-06] MEDS ORDERED: NS 2,440 ML in IV 1 EA IV ONE (11:20)
[2023-02-06 11:41] LABS: VENOUS BASE EXCESS 2.4 (-2.0-2.0); VENOUS HCO3 29.3 MMOL/L (23.0-27.0); VENOUS O2 SATURATION 55.8 % (60.0-80.0); VENOUS PARTIAL PRESSURE CO2 55.5 mmHg (38.0-50.0); VENOUS PARTIAL PRESSURE O2 31.4 mmHg (30.0-50.0); VENOUS STANDARD HCO3 25.6 MMOL/L
[2023-02-06 11:46] LABS: BASO % 0.1 % (0.0-1.0); HEMATOCRIT 35.2 % (42.0-52.0); HEMOGLOBIN 11.7 g/dl (13.5-17.5); LYMPH # 0.5 10^3/uL (1.5-5.0); LYMPH % 4.4 % (24.0-44.0); MEAN CORPUSCULAR HEMOGLOBIN 31.6 pg (27.0-33.0); MEAN CORPUSCULAR HGB CONC 33.2 g/dl (32.0-36.5); MEAN CORPUSCULAR VOLUME 95.1 fl (80.0-96.0); MONO # 1.1 10^3/uL (0.0-0.8); NEUTROPHILS # 9.4 10^3/uL (1.5-8.5); NEUTROPHILS % 84.9 % (36.0-66.0); PLATELET COUNT, AUTOMATED 178 10^3/uL (150-450)
[2023-02-06 11:58] LABS: INR 1.11
[2023-02-06 11:59] LABS: PARTIAL THROMBOPLASTIN TIME 31.8 SECONDS (24.8-34.2)
[2023-02-06 12:15] LABS: ALKALINE PHOSPHATASE 85 U/L (46-116); ALT/SGPT 45 U/L (7.0-40); AST/SGOT 34 U/L (<34); BILIRUBIN,DIRECT 0.2 MG/DL (<0.4); BILIRUBIN,TOTAL 0.4 MG/DL (0.3-1.2); BLOOD UREA NITROGEN 24 MG/DL (9-23); CALCIUM LEVEL 9.2 MG/DL (8.3-10.6); CARBON DIOXIDE LEVEL 29 MMOL/L (20-31); CHLORIDE LEVEL 92 MMOL/L (98-107); CREATININE FOR GFR 1.09 MG/DL (0.70-1.30); GLOMERULAR FILTRATION RATE > 60.0 (>42); GLUCOSE, FASTING 88 MG/DL (74-106); MAGNESIUM LEVEL 1.6 MG/DL (1.8-2.4); POTASSIUM SERUM 4.5 MMOL/L (3.5-5.1); SODIUM LEVEL 130 MMOL/L (136-145); TOTAL PROTEIN 7.1 G/DL (5.7-8.2)
[2023-02-06 12:17] LABS: THYROID STIMULATING HORMONE 4.654 uIU/ML (0.55-4.78)
[2023-02-06 12:27] LABS: PROCALCITONIN 5.01 ng/ml
[2023-02-06] MEDS ORDERED: ISOVUE-370 76% 100ML VIAL As Ordered ONE (12:29)
[2023-02-06] MEDS ORDERED: MOM 30ML SUSPENSION UDC PO PRN (13:00)
[2023-02-06] MEDS ORDERED: ACETAMINOPHEN TAB 650MG DOSE (2X325MG) PO PRN (13:00)
[2023-02-06] MEDS ORDERED: MAALOX 30 ML SUSP *UDC PO PRN (13:00)
[2023-02-06 13:06] LABS: VALPROIC ACID (DEPAKOTE) 96.3 UG/ML (50.0-100.0)
[2023-02-06] MEDS ORDERED: MED REC IN PROGRESS XX SCH (13:20)
[2023-02-06] MEDS ORDERED: HOME MED LIST COMPLETE! XX SCH (13:50)
[2023-02-06] MEDS ORDERED: MOM 30ML SUSPENSION UDC GT PRN (13:55)
[2023-02-06] MEDS ORDERED: MAALOX 30 ML SUSP *UDC GT PRN (13:55)
[2023-02-06] MEDS: metroNIDAZOLE 500 MG in IV 1 EA IV SCH ×2 (14:34→23:07)
[2023-02-06] MEDS: CitaloPRAM (CeleXA) 20 MG TAB GT SCH (14:34)
[2023-02-06] MEDS: MAG SULF 1GM/100ML (MAG RUN) 1 GM in IV 1 EA IV SCH ×2 (14:34→16:49)
[2023-02-06] MEDS: NS 1,000 ML IV SCH ×2 (14:35→23:09)
[2023-02-06] MEDS ORDERED: REMDESIVIR 200 MG in NS 250 ML IV ONE (16:00)
[2023-02-06] MEDS ORDERED: ACETAMINOPHEN 325MG/10.15ML UDC GT PRN (17:00)
[2023-02-06] MEDS: LevoFLOXacin IV 750 MG in IV 1 EA IV SCH (19:02)
[2023-02-06] MEDS: LORazepam 0.5 MG TAB GT SCH ×2 (19:02→21:12)
[2023-02-06] MEDS: LACTOBACILLUS ACIDOPHILUS CAP (BACID) PEG SCH (19:02)
[2023-02-06] MEDS ORDERED: ALBUTEROL 90 MCG/ACT 8GM HFA INHALER INH PRN (20:15)
[2023-02-06] MEDS ORDERED: DOCUSATE SODIUM 100MG CAPSULE PO SCH (21:00)
[2023-02-06] MEDS: SENNA 8.6 MG TAB (SENOKOT) GT SCH (21:12)
[2023-02-06] MEDS: VALPROIC ACID 250MG/5ML SOL ORAL SYRINGE GT SCH (21:12)
[2023-02-06] MEDS: QUEtiapine FUMARATE 200 MG TAB GT SCH (21:12)
[2023-02-06] MEDS: DOCUSATE SOD LIQ 100MG/10ML UDC GT SCH (21:12)
[2023-02-06] MEDS: NYSTATIN 100,000 UNITS/GM TOPICAL PWD 15GM TOP SCH (21:13)
[2023-02-07] VITALS (29 sets, daily range): BP systolic 105–154; BP diastolic 53–78; TEMP 97.3–98.9; O2SAT 82–96
[2023-02-07] MEDS: metroNIDAZOLE 500 MG in IV 1 EA IV SCH ×3 (05:36→22:00)
[2023-02-07 06:35] LABS: ALBUMIN 2.4 G/DL (3.2-5.2); ALKALINE PHOSPHATASE 60 U/L (46-116); ALT/SGPT 30 U/L (7.0-40); AST/SGOT 35 U/L (<34); BILIRUBIN,TOTAL 0.2 MG/DL (0.3-1.2); BLOOD UREA NITROGEN 19 MG/DL (9-23); CALCIUM LEVEL 8.3 MG/DL (8.3-10.6); CARBON DIOXIDE LEVEL 22 MMOL/L (20-31); CHLORIDE LEVEL 103 MMOL/L (98-107); CREATININE FOR GFR 0.88 MG/DL (0.70-1.30); GLOMERULAR FILTRATION RATE > 60.0 (>42); GLUCOSE, FASTING 98 MG/DL (74-106); MAGNESIUM LEVEL 1.9 MG/DL (1.8-2.4); POTASSIUM SERUM 5.3 MMOL/L (3.5-5.1); SODIUM LEVEL 134 MMOL/L (136-145); TOTAL PROTEIN 6.1 G/DL (5.7-8.2)
[2023-02-07] MEDS ORDERED: PATIROMER SORBITEX CALCIUM 8.4 GM POWDER PACKET (VELTASSA) PO ONE (08:00)
[2023-02-07 09:05] LABS: BASO % 0.1 % (0.0-1.0); HEMATOCRIT 30.3 % (42.0-52.0); HEMOGLOBIN 9.9 g/dl (13.5-17.5); LYMPH % 5.2 % (24.0-44.0); MEAN CORPUSCULAR HEMOGLOBIN 31.4 pg (27.0-33.0); MEAN CORPUSCULAR HGB CONC 32.7 g/dl (32.0-36.5); MEAN CORPUSCULAR VOLUME 96.2 fl (80.0-96.0); MONO # 1.5 10^3/uL (0.0-0.8); MONO % 7.9 % (2.0-8.0); NEUTROPHILS # 15.3 10^3/uL (1.5-8.5); NEUTROPHILS % 81.9 % (36.0-66.0); PLATELET COUNT, AUTOMATED 163 10^3/uL (150-450); RED BLOOD COUNT 3.15 10^6/uL (4.30-6.10); WHITE BLOOD COUNT 18.7 10^3/uL (4.0-10.0)
[2023-02-07] MEDS: MIRALAX *UNIT DOSE* 17GM PACKET GT SCH (10:26)
[2023-02-07] MEDS: CitaloPRAM (CeleXA) 20 MG TAB GT SCH (10:27)
[2023-02-07] MEDS: PANTOPRAZOLE 40MG VIAL IV SCH (10:27)
[2023-02-07] MEDS: LORazepam 0.5 MG TAB GT SCH ×4 (10:27→21:49)
[2023-02-07] MEDS: DOCUSATE SOD LIQ 100MG/10ML UDC GT SCH ×2 (10:27→21:00)
[2023-02-07] MEDS: NYSTATIN 100,000 UNITS/GM TOPICAL PWD 15GM TOP SCH ×2 (10:27→21:49)
[2023-02-07] MEDS: VALPROIC ACID 250MG/5ML SOL ORAL SYRINGE GT SCH ×2 (10:28→21:50)
[2023-02-07] MEDS: QUEtiapine FUMARATE 100 MG TAB GT SCH (10:28)
[2023-02-07] MEDS: ENOXAPARIN 40MG/0.4ML SYRINGE (J1650 PER 10MG) SC SCH (10:29)
[2023-02-07] MEDS: NS 1,000 ML IV SCH (10:34)
[2023-02-07] MEDS: LACTOBACILLUS ACIDOPHILUS CAP (BACID) PEG SCH ×2 (10:34→18:01)
[2023-02-07] MEDS ORDERED: VANCOMYCIN HCL 750 MG, VIAL MATE ADAPTER 1 EACH in D5W 250 ML IV SCH (11:40)
[2023-02-07] MEDS ORDERED: VANCOMYCIN HCL 750 MG, VIAL MATE ADAPTER 1 EACH in D5W 250 ML IV ONE ×2 (13:00→14:00)
[2023-02-07] MEDS: REMDESIVIR 100 MG in NS 250 ML IV SCH (18:01)
[2023-02-07] MEDS: LevoFLOXacin IV 750 MG in IV 1 EA IV SCH (20:13)
[2023-02-07] MEDS: SENNA 8.6 MG TAB (SENOKOT) GT SCH (21:00)
[2023-02-07] MEDS: QUEtiapine FUMARATE 200 MG TAB GT SCH (21:49)
[2023-02-08] VITALS (21 sets, daily range): BP systolic 132–173; BP diastolic 69–87; TEMP 98.7–99.2; O2SAT 86–96
[2023-02-08] MEDS ORDERED: VANCOMYCIN HCL 750 MG, VIAL MATE ADAPTER 1 EACH in D5W 250 ML IV SCH ×3
[2023-02-08] MEDS: metroNIDAZOLE 500 MG in IV 1 EA IV SCH ×3 (06:26→23:11)
[2023-02-08 07:04] LABS: BASO % 0.1 % (0.0-1.0); EOS % 0.1 % (0.0-3.0); HEMATOCRIT 29.8 % (42.0-52.0); HEMOGLOBIN 9.6 g/dl (13.5-17.5); LYMPH # 0.8 10^3/uL (1.5-5.0); LYMPH % 4.8 % (24.0-44.0); MEAN CORPUSCULAR HEMOGLOBIN 30.8 pg (27.0-33.0); MEAN CORPUSCULAR HGB CONC 32.2 g/dl (32.0-36.5); MEAN CORPUSCULAR VOLUME 95.5 fl (80.0-96.0); MONO # 1.3 10^3/uL (0.0-0.8); MONO % 7.7 % (2.0-8.0); NEUTROPHILS # 14.2 10^3/uL (1.5-8.5); NEUTROPHILS % 85.4 % (36.0-66.0); PLATELET COUNT, AUTOMATED 165 10^3/uL (150-450); RED BLOOD COUNT 3.12 10^6/uL (4.30-6.10); WHITE BLOOD COUNT 16.7 10^3/uL (4.0-10.0)
[2023-02-08 07:41] LABS: ALBUMIN 2.3 G/DL (3.2-5.2); ALKALINE PHOSPHATASE 72 U/L (46-116); ALT/SGPT 22 U/L (7.0-40); AST/SGOT 19 U/L (<34); BILIRUBIN,TOTAL 0.3 MG/DL (0.3-1.2); BLOOD UREA NITROGEN 22 MG/DL (9-23); CALCIUM LEVEL 8.6 MG/DL (8.3-10.6); CARBON DIOXIDE LEVEL 25 MMOL/L (20-31); CHLORIDE LEVEL 103 MMOL/L (98-107); GLOMERULAR FILTRATION RATE > 60.0 (>42); GLUCOSE, FASTING 94 MG/DL (74-106); MAGNESIUM LEVEL 1.8 MG/DL (1.8-2.4); POTASSIUM SERUM 4.5 MMOL/L (3.5-5.1); SODIUM LEVEL 135 MMOL/L (136-145); TOTAL PROTEIN 5.9 G/DL (5.7-8.2)
[2023-02-08] MEDS: MIRALAX *UNIT DOSE* 17GM PACKET GT SCH ×2 (09:00)
[2023-02-08] MEDS: ENOXAPARIN 40MG/0.4ML SYRINGE (J1650 PER 10MG) SC SCH (10:06)
[2023-02-08] MEDS: PANTOPRAZOLE 40MG VIAL IV SCH (10:06)
[2023-02-08] MEDS: VALPROIC ACID 250MG/5ML SOL ORAL SYRINGE GT SCH ×2 (10:07→21:09)
[2023-02-08] MEDS: LACTOBACILLUS ACIDOPHILUS CAP (BACID) PEG SCH ×2 (10:07→18:29)
[2023-02-08] MEDS: DOCUSATE SOD LIQ 100MG/10ML UDC GT SCH ×2 (10:07→21:00)
[2023-02-08] MEDS: CitaloPRAM (CeleXA) 20 MG TAB GT SCH (10:08)
[2023-02-08] MEDS: QUEtiapine FUMARATE 100 MG TAB GT SCH (10:08)
[2023-02-08] MEDS: LORazepam 0.5 MG TAB GT SCH ×4 (10:08→21:10)
[2023-02-08] MEDS: NYSTATIN 100,000 UNITS/GM TOPICAL PWD 15GM TOP SCH ×2 (10:09→21:15)
[2023-02-08] MEDS: REMDESIVIR 100 MG in NS 250 ML IV SCH (16:37)
[2023-02-08 17:07] LABS: MYCOPLASMA PNEUMONIAE IgG 155 U/mL (0-99); MYCOPLASMA PNEUMONIAE IgM <770 U/mL (0-769)
[2023-02-08] MEDS: LevoFLOXacin IV 750 MG in IV 1 EA IV SCH (18:29)
[2023-02-08] MEDS: SENNA 8.6 MG TAB (SENOKOT) GT SCH (21:00)
[2023-02-08] MEDS: QUEtiapine FUMARATE 200 MG TAB GT SCH (21:15)
[2023-02-09] VITALS (26 sets, daily range): BP systolic 139–170; BP diastolic 75–90; TEMP 97.2–100.1; O2SAT 92–96
[2023-02-09] MEDS: metroNIDAZOLE 500 MG in IV 1 EA IV SCH (06:19)
[2023-02-09 06:24] LABS: BASO % 0.1 % (0.0-1.0); HEMATOCRIT 31.6 % (42.0-52.0); HEMOGLOBIN 10.1 g/dl (13.5-17.5); LYMPH # 0.6 10^3/uL (1.5-5.0); LYMPH % 4.5 % (24.0-44.0); MEAN CORPUSCULAR HEMOGLOBIN 30.8 pg (27.0-33.0); MEAN CORPUSCULAR VOLUME 96.3 fl (80.0-96.0); MONO % 7.4 % (2.0-8.0); NEUTROPHILS # 11.6 10^3/uL (1.5-8.5); NEUTROPHILS % 86.4 % (36.0-66.0); PLATELET COUNT, AUTOMATED 180 10^3/uL (150-450); RED BLOOD COUNT 3.28 10^6/uL (4.30-6.10); WHITE BLOOD COUNT 13.4 10^3/uL (4.0-10.0)
[2023-02-09 06:47] LABS: ALBUMIN 2.4 G/DL (3.2-5.2); ALKALINE PHOSPHATASE 84 U/L (46-116); ALT/SGPT 17 U/L (7.0-40); AST/SGOT 16 U/L (<34); BILIRUBIN,TOTAL 0.2 MG/DL (0.3-1.2); BLOOD UREA NITROGEN 28 MG/DL (9-23); CALCIUM LEVEL 8.6 MG/DL (8.3-10.6); CARBON DIOXIDE LEVEL 28 MMOL/L (20-31); CHLORIDE LEVEL 103 MMOL/L (98-107); CREATININE FOR GFR 0.92 MG/DL (0.70-1.30); GLOMERULAR FILTRATION RATE > 60.0 (>42); GLUCOSE, FASTING 95 MG/DL (74-106); MAGNESIUM LEVEL 1.7 MG/DL (1.8-2.4); POTASSIUM SERUM 4.3 MMOL/L (3.5-5.1); SODIUM LEVEL 139 MMOL/L (136-145)
[2023-02-09] MEDS ORDERED: MAG SULF 1GM/100ML (MAG RUN) 1 GM in IV 1 EA IV ONE (08:00)
[2023-02-09] MEDS: VALPROIC ACID 250MG/5ML SOL ORAL SYRINGE GT SCH (08:39)
[2023-02-09] MEDS: PANTOPRAZOLE 40MG VIAL IV SCH (08:40)
[2023-02-09] MEDS: CitaloPRAM (CeleXA) 20 MG TAB GT SCH (08:41)
[2023-02-09] MEDS: LORazepam 0.5 MG TAB GT SCH ×4 (08:41→20:10)
[2023-02-09] MEDS: ENOXAPARIN 40MG/0.4ML SYRINGE (J1650 PER 10MG) SC SCH (08:41)
[2023-02-09] MEDS: DOCUSATE SOD LIQ 100MG/10ML UDC GT SCH ×2 (08:41→20:09)
[2023-02-09] MEDS: LACTOBACILLUS ACIDOPHILUS CAP (BACID) PEG SCH ×2 (08:41→17:47)
[2023-02-09] MEDS: NYSTATIN 100,000 UNITS/GM TOPICAL PWD 15GM TOP SCH ×2 (08:42→20:11)
[2023-02-09] MEDS: MIRALAX *UNIT DOSE* 17GM PACKET GT SCH (08:43)
[2023-02-09] MEDS: QUEtiapine FUMARATE 100 MG TAB GT SCH (12:16)
[2023-02-09] MEDS: REMDESIVIR 100 MG in NS 250 ML IV SCH (16:10)
[2023-02-09] MEDS: LevoFLOXacin 750 MG TABLET GT SCH (16:10)
[2023-02-09] MEDS: metroNIDAZOLE (FLAGYL) 500MG TABLET GT SCH ×2 (16:10→22:29)
[2023-02-09] MEDS ORDERED: FUROSEMIDE 40MG/4ML VIAL IV ONE (16:50)
[2023-02-09] MEDS: QUEtiapine FUMARATE 200 MG TAB GT SCH (20:10)
[2023-02-09] MEDS: VALPROIC ACID 500MG/10ML SOL ORAL SYRINGE GT SCH (20:10)
[2023-02-09] MEDS: SENNA 8.6 MG TAB (SENOKOT) GT SCH (20:11)
[2023-02-10] VITALS (14 sets, daily range): BP systolic 142–155; BP diastolic 64–78; TEMP 97.1–98.8; O2SAT 86–99
[2023-02-10] MEDS: metroNIDAZOLE (FLAGYL) 500MG TABLET GT SCH ×3 (05:43→21:05)
[2023-02-10 07:33] LABS: HEMATOCRIT 32.5 % (42.0-52.0); HEMOGLOBIN 10.7 g/dl (13.5-17.5); MEAN CORPUSCULAR HEMOGLOBIN 31.3 pg (27.0-33.0); MEAN CORPUSCULAR HGB CONC 32.9 g/dl (32.0-36.5); PLATELET COUNT, AUTOMATED 210 10^3/uL (150-450); RED BLOOD COUNT 3.42 10^6/uL (4.30-6.10); WHITE BLOOD COUNT 9.6 10^3/uL (4.0-10.0)
[2023-02-10 07:59] LABS: ALBUMIN 2.5 G/DL (3.2-5.2); ALKALINE PHOSPHATASE 80 U/L (46-116); ALT/SGPT 17 U/L (7.0-40); AST/SGOT 17 U/L (<34); BILIRUBIN,TOTAL 0.2 MG/DL (0.3-1.2); BLOOD UREA NITROGEN 33 MG/DL (9-23); CALCIUM LEVEL 8.4 MG/DL (8.3-10.6); CARBON DIOXIDE LEVEL 35 MMOL/L (20-31); CHLORIDE LEVEL 102 MMOL/L (98-107); CREATININE FOR GFR 1.12 MG/DL (0.70-1.30); GLOMERULAR FILTRATION RATE > 60.0 (>42); GLUCOSE, FASTING 91 MG/DL (74-106); MAGNESIUM LEVEL 1.7 MG/DL (1.8-2.4); POTASSIUM SERUM 4.1 MMOL/L (3.5-5.1); SODIUM LEVEL 143 MMOL/L (136-145)
[2023-02-10] MEDS: MIRALAX *UNIT DOSE* 17GM PACKET GT SCH (08:08)
[2023-02-10] MEDS: DOCUSATE SOD LIQ 100MG/10ML UDC GT SCH ×2 (08:16→20:25)
[2023-02-10 08:41] LABS: ATYPICAL LYMPH 10 % (0-5); LYMPHOCYTES 10 % (16-44); METAMYELOCYTES 1 % (0-0); MONOCYTES 16 % (0-5); NEUTROPHILS 61 % (28-66); PLATELET ESTIMATE NORMAL (NORMAL)
[2023-02-10] MEDS: ENOXAPARIN 40MG/0.4ML SYRINGE (J1650 PER 10MG) SC SCH (08:45)
[2023-02-10] MEDS: QUEtiapine FUMARATE 100 MG TAB GT SCH (08:46)
[2023-02-10] MEDS: LACTOBACILLUS ACIDOPHILUS CAP (BACID) PEG SCH ×2 (08:46→16:19)
[2023-02-10] MEDS: VALPROIC ACID 500MG/10ML SOL ORAL SYRINGE GT SCH ×2 (08:46→21:05)
[2023-02-10] MEDS: CitaloPRAM (CeleXA) 20 MG TAB GT SCH (08:47)
[2023-02-10] MEDS: LORazepam 0.5 MG TAB GT SCH ×4 (08:47→21:06)
[2023-02-10] MEDS: PANTOPRAZOLE 40MG VIAL IV SCH (08:47)
[2023-02-10] MEDS: NYSTATIN 100,000 UNITS/GM TOPICAL PWD 15GM TOP SCH ×2 (08:48→21:06)
[2023-02-10] MEDS ORDERED: MAG SULF 1GM/100ML (MAG RUN) 1 GM in IV 1 EA IV ONE (09:00)
[2023-02-10] MEDS ORDERED: predniSONE 20 MG TAB PO SCH (09:00)
[2023-02-10] MEDS ORDERED: FUROSEMIDE 40MG/4ML VIAL IV ONE (12:30)
[2023-02-10] MEDS: LevoFLOXacin 750 MG TABLET GT SCH (16:19)
[2023-02-10] MEDS: REMDESIVIR 100 MG in NS 250 ML IV SCH (16:19)
[2023-02-10] MEDS: SENNA 8.6 MG TAB (SENOKOT) GT SCH (20:25)
[2023-02-10] MEDS: QUEtiapine FUMARATE 200 MG TAB GT SCH (21:05)
[2023-02-11] MEDS: metroNIDAZOLE (FLAGYL) 500MG TABLET GT SCH ×2 (06:06→12:32)
[2023-02-11 06:22] VITALS: BP 151/81; TEMP 97.9; O2SAT 95
[2023-02-11 08:18] LABS: HEMATOCRIT 34.6 % (42.0-52.0); HEMOGLOBIN 11.4 g/dl (13.5-17.5); MEAN CORPUSCULAR HEMOGLOBIN 31.2 pg (27.0-33.0); MEAN CORPUSCULAR HGB CONC 32.9 g/dl (32.0-36.5); MEAN CORPUSCULAR VOLUME 94.8 fl (80.0-96.0); PLATELET COUNT, AUTOMATED 214 10^3/uL (150-450); RED BLOOD COUNT 3.65 10^6/uL (4.30-6.10); WHITE BLOOD COUNT 8.4 10^3/uL (4.0-10.0)
[2023-02-11 08:47] LABS: ALBUMIN 2.5 G/DL (3.2-5.2); ALKALINE PHOSPHATASE 79 U/L (46-116); ALT/SGPT 16 U/L (7.0-40); AST/SGOT 20 U/L (<34); BILIRUBIN,TOTAL 0.2 MG/DL (0.3-1.2); BLOOD UREA NITROGEN 40 MG/DL (9-23); CALCIUM LEVEL 8.6 MG/DL (8.3-10.6); CARBON DIOXIDE LEVEL 35 MMOL/L (20-31); CHLORIDE LEVEL 98 MMOL/L (98-107); CREATININE FOR GFR 1.03 MG/DL (0.70-1.30); GLOMERULAR FILTRATION RATE > 60.0 (>42); GLUCOSE, FASTING 86 MG/DL (74-106); POTASSIUM SERUM 3.7 MMOL/L (3.5-5.1); SODIUM LEVEL 140 MMOL/L (136-145); TOTAL PROTEIN 6.1 G/DL (5.7-8.2)
[2023-02-11 08:55] LABS: ATYPICAL LYMPH 11 % (0-5); LYMPHOCYTES 23 % (16-44); METAMYELOCYTES 1 % (0-0); MONOCYTES 15 % (0-5); MYELOCYTES 3 % (0-0); NEUTROPHILS 42 % (28-66); PLATELET ESTIMATE NORMAL (NORMAL)
[2023-02-11 08:56] LABS: ANISOCYTOSIS 1+; HELMET CELLS 1+
[2023-02-11 08:57] LABS: DOHLE BODIES 1+; POLYCHROMASIA 1+
[2023-02-11] MEDS ORDERED: predniSONE 20 MG TAB GT SCH (09:00)
[2023-02-11] MEDS ORDERED: predniSONE 20 MG TAB PO SCH (09:00)
[2023-02-11] MEDS: DOCUSATE SOD LIQ 100MG/10ML UDC GT SCH (09:52)
[2023-02-11] MEDS: MIRALAX *UNIT DOSE* 17GM PACKET GT SCH (09:53)
[2023-02-11] MEDS: CitaloPRAM (CeleXA) 20 MG TAB GT SCH (09:54)
[2023-02-11] MEDS: LACTOBACILLUS ACIDOPHILUS CAP (BACID) PEG SCH (09:54)
[2023-02-11] MEDS: LORazepam 0.5 MG TAB GT SCH ×2 (09:54→12:32)
[2023-02-11] MEDS: ENOXAPARIN 40MG/0.4ML SYRINGE (J1650 PER 10MG) SC SCH (09:54)
[2023-02-11] MEDS: PANTOPRAZOLE 40MG VIAL IV SCH (09:54)
[2023-02-11] MEDS: QUEtiapine FUMARATE 100 MG TAB GT SCH (09:55)
[2023-02-11] MEDS: VALPROIC ACID 500MG/10ML SOL ORAL SYRINGE GT SCH (09:55)
[2023-02-11] MEDS: NYSTATIN 100,000 UNITS/GM TOPICAL PWD 15GM TOP SCH (09:56)
[2023-02-11] MEDS ORDERED: METR-265 GT (12:02)
[2023-02-11] MEDS ORDERED: PRED10TA2 GT (12:02)
[2023-02-11] MEDS ORDERED: LEVO1TAB40 GT (12:02)
[2023-02-11] MEDS ORDERED: FUROSEMIDE 20MG/2ML VIAL IV ONE (13:00)
[2023-02-11 18:07] LABS: CHLAMYDIA PNEUMONIAE IgG <1:100 (< 1:100); CHLAMYDIA PNEUMONIAE IgM <1:10 (< 1:10); CHLAMYDIA PSITTACI IgG <1:100 (< 1:100); CHLAMYDIA PSITTACI IgM <1:10 (< 1:10); CHLAMYDIA TRACHOMATIS IgG <1:100 (< 1:100); CHLAMYDIA TRACHOMATIS IgM <1:10 (< 1:10)
== END 2023-02-11 14:25 | disposition home or self-care (01) | DRG 871 ==
LOC: M ED 10:52 → EDBD 10:52 → M ED INP 14:08 → ENRESERV 17:10 → M PCU 17:50 → M MSPAV 02-10 18:46
PROVIDERS: ADMIT Internal Medicine; ATTEND Internal Medicine
DX: A41.9 Sepsis, unspecified organism (principal); J69.0 Pneumonitis due to inhalation of food and vomit; U07.1 COVID-19; J15.9 Unspecified bacterial pneumonia; F72 Severe intellectual disabilities; I50.32 Chronic diastolic (congestive) heart failure; E87.1 Hypo-osmolality and hyponatremia; E87.20 Acidosis, unspecified; E83.42 Hypomagnesemia; K21.9 Gastro-esophageal reflux disease without esophagitis; F20.9 Schizophrenia, unspecified; G40.909 Epilepsy, unspecified, not intractable, without status epilepticus; N18.30 Chronic kidney disease, stage 3 unspecified; R13.12 Dysphagia, oropharyngeal phase; E87.5 Hyperkalemia; E87.70 Fluid overload, unspecified; Z88.8 Allergy status to other drugs, medicaments and biological substances; Z79.899 Other long term (current) drug therapy; Z93.1 Gastrostomy status

== ENCOUNTER 2023-03-01 19:31 | Emergency (ER) | payer MEDICARE, MEDICAID ==
[~2023-03-01] VITALS: Ht 154.9 cm; Wt 68.1 kg
[2023-03-01 19:31] VITALS: BP 137/67; TEMP 98.6; O2SAT 99
[~2023-03-01 19:31] MED LIST changes: -CULT10CA4 PO; +LEVO1TAB40 GT; +METR-265 GT; +PRED10TA2 GT
[2023-03-01] MEDS ORDERED: GASTROGRAFIN SOLUTION 30ML GT ONE (23:10)
== END 2023-03-01 23:52 | disposition home or self-care (01) ==
LOC: M ED 19:31
DX: K94.23 Gastrostomy malfunction (principal); G40.909 Epilepsy, unspecified, not intractable, without status epilepticus; N18.30 Chronic kidney disease, stage 3 unspecified; Z88.5 Allergy status to narcotic agent; Z88.8 Allergy status to other drugs, medicaments and biological substances; Z79.52 Long term (current) use of systemic steroids; Z79.899 Other long term (current) drug therapy
CPT/HCPCS: 74018; 99283; Q9963

== ENCOUNTER 2023-03-02 06:02 | Day surgery (SDC) | payer MEDICARE, MEDICAID ==
[~2023-03-02] VITALS: Ht 160 cm; Wt 80.9 kg
[2023-03-02] MEDS ORDERED: propofoL 200 MG/20 ML VIAL As Ordered ONE (07:08)
[2023-03-02] MEDS ORDERED: ONDANSETRON 4MG 2ML VIAL As Ordered ONE (07:08)
[2023-03-02] MEDS ORDERED: SUGAMMADEX SODIUM 500 MG/5 ML VIAL (BRIDION) As Ordered ONE (07:08)
[2023-03-02] MEDS ORDERED: ROCURONIUM BROMIDE 50MG/5ML VIAL As Ordered ONE (07:08)
[2023-03-02] MEDS ORDERED: LIDOCAINE 2% 100MG/5ML SDV (FOR ANES.) As Ordered ONE (07:08)
[2023-03-02] MEDS ORDERED: fentaNYL 100 MCG/2 ML INJECTION As Ordered ONE (07:09)
[2023-03-02] MEDS ORDERED: GLYCOPYRROLATE INJ 0.2 MG/ML 2 ML VIAL As Ordered ONE (07:10)
[2023-03-02] MEDS ORDERED: dexmedeTOMIDine (4MCG/ML)200MCG/50ML BTL (PRECEDEX) As Ordered ONE (07:58)
[2023-03-02] MEDS: CETACAINE SPRAY 5GM As Ordered ONE (08:11)
[2023-03-02] MEDS: THROMBIN 5,000 UNITS VIAL As Ordered ONE (08:30)
[2023-03-02] MEDS: EPINEPHrine 1MG/10ML SYRINGE 1.5IN As Ordered ONE (08:30)
[2023-03-02] MEDS ORDERED: ONDANSETRON 4MG 2ML VIAL IV PRN (08:50)
[2023-03-02] MEDS ORDERED: oxyCODONE 5MG TAB PO PRN (08:50)
[2023-03-02 10:28] VITALS: BP 141/80; TEMP 97.1; O2SAT 95
== END 2023-03-02 11:23 | disposition home or self-care (01) ==
LOC: M SDC 06:02
PROVIDERS: ATTEND Internal Medicine Pulmonary Disease
DX: R91.8 Other nonspecific abnormal finding of lung field (principal); R59.0 Localized enlarged lymph nodes; J84.10 Pulmonary fibrosis, unspecified; N18.31 Chronic kidney disease, stage 3a; R56.9 Unspecified convulsions; Z79.899 Other long term (current) drug therapy; Z86.16 Personal history of COVID-19; Z88.5 Allergy status to narcotic agent; Z88.0 Allergy status to penicillin
CPT/HCPCS: 31629; 31652; 71045; 76000; 87070; 87102; 87116; 87205; 87206; 88173; 88305; J1100; J2405; J3010

== ENCOUNTER 2023-06-11 09:05 | Emergency (ER) | payer MEDICARE, MEDICAID ==
[~2023-06-11] VITALS: Ht 160 cm; Wt 84.5 kg
[~2023-06-11 09:05] MED LIST changes: +ACET1TAB55 GT; -ACET1TAB55 PO; +CITR500T GT
[2023-06-11 09:26] VITALS: TEMP 98
[2023-06-11 09:35] LABS: ABG BASE EXCESS 2.5 (-2.0-2.0); ABG HCO3 27.4 MMOL/L (22.0-26.0); ABG PARTIAL PRESSURE CO2 43.4 mmHg (35.0-45.0); ABG PARTIAL PRESSURE O2 76.5 mmHg (75.0-100.0); ABG STANDARD HCO3 26.7 MMOL/L. (22.0-26.0); ABG TOTAL CO2 28.7 MMOL/L (23.0-31.0); ABG pH (ARTERIAL) 7.418 UNITS (7.350-7.450)
[2023-06-11 09:46] LABS: VENOUS HCO3 29.4 MMOL/L (23.0-27.0); VENOUS O2 SATURATION 53.6 % (60.0-80.0); VENOUS PARTIAL PRESSURE CO2 52.8 mmHg (38.0-50.0); VENOUS PARTIAL PRESSURE O2 29.8 mmHg (30.0-50.0); VENOUS PH 7.364 UNITS (7.330-7.430); VENOUS STANDARD HCO3 26.2 MMOL/L
[2023-06-11 09:50] LABS: BASO % 0.5 % (0.0-1.0); EOS # 0.2 10^3/uL (0.0-0.5); EOS % 3.4 % (0.0-3.0); HEMOGLOBIN 11.5 g/dl (13.5-17.5); LYMPH # 1.5 10^3/uL (1.5-5.0); LYMPH % 24.5 % (24.0-44.0); MEAN CORPUSCULAR HGB CONC 32.9 g/dl (32.0-36.5); MEAN CORPUSCULAR VOLUME 97.5 fl (80.0-96.0); MONO # 0.8 10^3/uL (0.0-0.8); MONO % 13.5 % (2.0-8.0); NEUTROPHILS # 3.5 10^3/uL (1.5-8.5); NEUTROPHILS % 56.8 % (36.0-66.0); PLATELET COUNT, AUTOMATED 191 10^3/uL (150-450); RED BLOOD COUNT 3.59 10^6/uL (4.30-6.10); WHITE BLOOD COUNT 6.1 10^3/uL (4.0-10.0)
[2023-06-11 10:21] LABS: CK-MB VALUE MASS 1.5 NG/ML (<3.6)
[2023-06-11 10:23] LABS: CPK CREATINE PHOSPHOKINASE 140 U/L (46-171); MB/CK RELATIVE INDEX 1.07 (< OR =4)
[2023-06-11 10:24] LABS: ALBUMIN 2.7 G/DL (3.2-5.2); ALKALINE PHOSPHATASE 84 U/L (46-116); ALT/SGPT 19 U/L (7.0-40); AST/SGOT 19 U/L (<34); BILIRUBIN,DIRECT 0.1 MG/DL (<0.4); BILIRUBIN,TOTAL 0.3 MG/DL (0.3-1.2); BLOOD UREA NITROGEN 21 MG/DL (9-23); CALCIUM LEVEL 8.8 MG/DL (8.3-10.6); CARBON DIOXIDE LEVEL 34 MMOL/L (20-31); CHLORIDE LEVEL 98 MMOL/L (98-107); CREATININE FOR GFR 1.04 MG/DL (0.70-1.30); GLOMERULAR FILTRATION RATE > 60.0 (>42); GLUCOSE, FASTING 79 MG/DL (74-106); POTASSIUM SERUM 4.3 MMOL/L (3.5-5.1); SODIUM LEVEL 136 MMOL/L (136-145); TOTAL PROTEIN 6.3 G/DL (5.7-8.2)
[2023-06-11 10:25] LABS: THYROID STIMULATING HORMONE 3.528 uIU/ML (0.55-4.78)
[2023-06-11] MEDS ORDERED: ISOVUE-370 76% 100ML VIAL As Ordered ONE (10:54)
[2023-06-11] MEDS ORDERED: HOME MED LIST COMPLETE! XX SCH (11:00)
[2023-06-11] MEDS: LevoFLOXacin IV 750 MG in IV 1 EA IV ONE (12:25)
[2023-06-11] MEDS ORDERED: metroNIDAZOLE (FLAGYL) 500MG TABLET PEG ONE (13:40)
[2023-06-11] MEDS ORDERED: LEVO1TAB40 PEG (13:41)
[2023-06-11] MEDS ORDERED: METR-265 PEG (13:42)
[2023-06-11 14:00] VITALS: BP 162/79
[2023-06-11 14:01] VITALS: O2SAT 94
== END 2023-06-11 14:14 | disposition home or self-care (01) ==
LOC: EDBD 09:05 → M ED 09:05
DX: J18.9 Pneumonia, unspecified organism (principal); R91.8 Other nonspecific abnormal finding of lung field; F79 Unspecified intellectual disabilities; K21.9 Gastro-esophageal reflux disease without esophagitis; N18.30 Chronic kidney disease, stage 3 unspecified; F20.9 Schizophrenia, unspecified; G40.909 Epilepsy, unspecified, not intractable, without status epilepticus; R13.10 Dysphagia, unspecified; Z93.1 Gastrostomy status; Z86.16 Personal history of COVID-19; Z87.01 Personal history of pneumonia (recurrent); Z79.899 Other long term (current) drug therapy; Z88.5 Allergy status to narcotic agent; Z88.0 Allergy status to penicillin
CPT/HCPCS: 36415; 36600; 71045; 71275; 80048; 80076; 82550; 82553; 82803; 83880; 84443; 84484; 85025; 87040; 87077; 87186; 87486; 87581; 87633; 87798; 93005; 93041; 94760; 96374; 99285; J1956; Q9967

== ENCOUNTER 2023-07-10 09:27 | Inpatient (IN) | payer MEDICARE, MEDICAID ==
[~2023-07-10] VITALS: Ht 160 cm; Wt 88.5 kg
[~2023-07-10 09:27] MED LIST changes: +DOXY50CA35 PO; -DOXY50CA51 PO; +LEVO1TAB40 PEG; +METR-265 PEG
[2023-07-10] MEDS: IPRATROPIUM 0.5MG/ALBUTEROL 2.5MG INH SOL UD 3ML (DUONEB) NEB ONE (10:58)
[2023-07-10] MEDS: methylPREDNISolone 125MG 2ML VIAL IV ONE (11:25)
[2023-07-10 11:28] LABS: VENOUS BASE EXCESS 0.7 (-2.0-2.0); VENOUS PARTIAL PRESSURE CO2 63.6 mmHg (38.0-50.0); VENOUS PARTIAL PRESSURE O2 34.8 mmHg (30.0-50.0); VENOUS PH 7.277 UNITS (7.330-7.430); VENOUS STANDARD HCO3 24.2 MMOL/L
[2023-07-10 11:49] LABS: BASO % 0.5 % (0.0-1.0); EOS # 0.1 10^3/uL (0.0-0.5); EOS % 1.7 % (0.0-3.0); HEMATOCRIT 37.3 % (42.0-52.0); HEMOGLOBIN 12.5 g/dl (13.5-17.5); LYMPH # 1.2 10^3/uL (1.5-5.0); LYMPH % 18.1 % (24.0-44.0); MEAN CORPUSCULAR HEMOGLOBIN 31.6 pg (27.0-33.0); MEAN CORPUSCULAR HGB CONC 33.5 g/dl (32.0-36.5); MEAN CORPUSCULAR VOLUME 94.2 fl (80.0-96.0); MONO # 0.9 10^3/uL (0.0-0.8); MONO % 13.5 % (2.0-8.0); NEUTROPHILS # 4.3 10^3/uL (1.5-8.5); NEUTROPHILS % 65.1 % (36.0-66.0); PLATELET COUNT, AUTOMATED 193 10^3/uL (150-450); RED BLOOD COUNT 3.96 10^6/uL (4.30-6.10); WHITE BLOOD COUNT 6.5 10^3/uL (4.0-10.0)
[2023-07-10 13:04] LABS: ABG BASE EXCESS 3.9 (-2.0-2.0); ABG HCO3 28.9 MMOL/L (22.0-26.0); ABG O2 SATURATION 89.8 % (95.0-99.0); ABG PARTIAL PRESSURE CO2 44.8 mmHg (35.0-45.0); ABG PARTIAL PRESSURE O2 56.8 mmHg (75.0-100.0); ABG STANDARD HCO3 27.8 MMOL/L. (22.0-26.0); ABG TOTAL CO2 30.2 MMOL/L (23.0-31.0); ABG pH (ARTERIAL) 7.427 UNITS (7.350-7.450)
[2023-07-10 13:56] LABS: ALBUMIN 2.9 G/DL (3.2-5.2); CARBON DIOXIDE LEVEL 29 MMOL/L (20-31); CHLORIDE LEVEL 97 MMOL/L (98-107); POTASSIUM SERUM 5.5 MMOL/L (3.5-5.1); SODIUM LEVEL 133 MMOL/L (136-145)
[2023-07-10 14:00] LABS: ALKALINE PHOSPHATASE 136 U/L (46-116); ALT/SGPT 97 U/L (7.0-40); AST/SGOT 104 U/L (<34); BILIRUBIN,DIRECT < 0.1 MG/DL (<0.4); BILIRUBIN,TOTAL 0.2 MG/DL (0.3-1.2); BLOOD UREA NITROGEN 21 MG/DL (9-23); CALCIUM LEVEL 8.8 MG/DL (8.3-10.6); CREATININE FOR GFR 0.85 MG/DL (0.70-1.30); GLOMERULAR FILTRATION RATE > 60.0 (>42); GLUCOSE, FASTING 80 MG/DL (74-106); TOTAL PROTEIN 6.6 G/DL (5.7-8.2)
[2023-07-10 14:02] LABS: THYROID STIMULATING HORMONE 2.604 uIU/ML (0.55-4.78)
[2023-07-10] MEDS ORDERED: ISOVUE-370 76% 100ML VIAL As Ordered ONE (14:13)
[2023-07-10 14:38] LABS: VALPROIC ACID (DEPAKOTE) 63.4 UG/ML (50.0-100.0)
[2023-07-10] MEDS: LevoFLOXacin IV 750 MG in IV 1 EA IV ONE (15:57)
[2023-07-10] MEDS ORDERED: LABETALOL 100MG/20ML VIAL IV PRN (16:35)
[2023-07-10 16:36] LABS: PROCALCITONIN <0.04 ng/ml
[2023-07-10] MEDS: LABETALOL 100MG/20ML VIAL IV STA (16:49)
[2023-07-10] MEDS: metroNIDAZOLE 500 MG in IV 1 EA IV SCH (17:39)
[2023-07-10] MEDS: LR 1,000 ML IV ONE (17:39)
[2023-07-10] MEDS ORDERED: HOME MED LIST COMPLETE! XX SCH (18:45)
[2023-07-10] MEDS: IPRATROPIUM 0.5MG/ALBUTEROL 2.5MG INH SOL UD 3ML (DUONEB) NEB SCH (19:05)
[2023-07-10 20:33] LABS: ALBUMIN 3.1 G/DL (3.2-5.2); ALKALINE PHOSPHATASE 140 U/L (46-116); ALT/SGPT 95 U/L (7.0-40); AST/SGOT 66 U/L (<34); BILIRUBIN,TOTAL 0.4 MG/DL (0.3-1.2); BLOOD UREA NITROGEN 26 MG/DL (9-23); CALCIUM LEVEL 9.3 MG/DL (8.3-10.6); CARBON DIOXIDE LEVEL 22 MMOL/L (20-31); CHLORIDE LEVEL 95 MMOL/L (98-107); CREATININE FOR GFR 0.92 MG/DL (0.70-1.30); GLOMERULAR FILTRATION RATE > 60.0 (>42); GLUCOSE, FASTING 168 MG/DL (74-106); POTASSIUM SERUM 5.2 MMOL/L (3.5-5.1); SODIUM LEVEL 131 MMOL/L (136-145); TOTAL PROTEIN 7.3 G/DL (5.7-8.2)
[2023-07-10] MEDS ORDERED: NYSTATIN 100,000 UNITS/GM TOPICAL PWD 15GM TOP PRN (21:30)
[2023-07-10] MEDS ORDERED: NEOSPORIN TOP OINT 15GM TOP PRN (21:30)
[2023-07-10] MEDS ORDERED: ACETAMINOPHEN TAB 650MG DOSE (2X325MG) GT PRN (21:30)
[2023-07-10] MEDS ORDERED: ALBUTEROL SULFATE 2.5MG/0.5ML INH NEB SOLN NEB PRN (21:30)
[2023-07-10 21:41] LABS: VENOUS BASE EXCESS -1.3 (-2.0-2.0); VENOUS HCO3 24.1 MMOL/L (23.0-27.0); VENOUS O2 SATURATION 93.7 % (60.0-80.0); VENOUS PARTIAL PRESSURE CO2 42.9 mmHg (38.0-50.0); VENOUS PH 7.367 UNITS (7.330-7.430); VENOUS STANDARD HCO3 23.3 MMOL/L; VENOUS TOTAL CO2 25.4 MMOL/L (24.0-28.0)
[2023-07-10] MEDS: PATIROMER SORBITEX CALCIUM 8.4 GM POWDER PACKET (VELTASSA) XX ONE (22:23)
[2023-07-10 23:05] VITALS: BP 144/66; TEMP 98.2; O2SAT 94
[2023-07-10] MEDS: NS 500 ML IV ONE (23:09)
[2023-07-10] MEDS: MAG SULF 1GM/100ML (MAG RUN) 1 GM in IV 1 EA IV SCH (23:09)
[2023-07-11] VITALS (9 sets, daily range): BP systolic 118–134; BP diastolic 54–71; TEMP 97.4–98.6; O2SAT 90–98
[2023-07-11] MEDS: NS 1,000 ML IV SCH (00:25)
[2023-07-11] MEDS: IPRATROPIUM 0.5MG/ALBUTEROL 2.5MG INH SOL UD 3ML (DUONEB) NEB PRN (04:48)
[2023-07-11 05:56] LABS: HEMATOCRIT 35.3 % (42.0-52.0); HEMOGLOBIN 11.8 g/dl (13.5-17.5); MEAN CORPUSCULAR HGB CONC 33.4 g/dl (32.0-36.5); MEAN CORPUSCULAR VOLUME 95.7 fl (80.0-96.0); PLATELET COUNT, AUTOMATED 201 10^3/uL (150-450); RED BLOOD COUNT 3.69 10^6/uL (4.30-6.10); WHITE BLOOD COUNT 11.8 10^3/uL (4.0-10.0)
[2023-07-11 06:27] LABS: BLOOD UREA NITROGEN 25 MG/DL (9-23); CALCIUM LEVEL 8.8 MG/DL (8.3-10.6); CARBON DIOXIDE LEVEL 26 MMOL/L (20-31); CHLORIDE LEVEL 98 MMOL/L (98-107); CREATININE FOR GFR 0.99 MG/DL (0.70-1.30); GLOMERULAR FILTRATION RATE > 60.0 (>42); GLUCOSE, FASTING 119 MG/DL (74-106); MAGNESIUM LEVEL 2.2 MG/DL (1.8-2.4); POTASSIUM SERUM 5.2 MMOL/L (3.5-5.1); SODIUM LEVEL 133 MMOL/L (136-145)
[2023-07-11] MEDS ORDERED: PATIROMER SORBITEX CALCIUM 8.4 GM POWDER PACKET (VELTASSA) XX STA (07:22)
[2023-07-11 08:15] LABS: ALBUMIN 2.9 G/DL (3.2-5.2); ALKALINE PHOSPHATASE 110 U/L (46-116); ALT/SGPT 76 U/L (7.0-40); AST/SGOT 87 U/L (<34); BILIRUBIN,DIRECT 0.1 MG/DL (<0.4); BILIRUBIN,TOTAL 0.3 MG/DL (0.3-1.2); TOTAL PROTEIN 6.6 G/DL (5.7-8.2)
[2023-07-11] MEDS: MIRALAX *UNIT DOSE* 17GM PACKET GT SCH (09:00)
[2023-07-11] MEDS: amLODIPine 5 MG TAB GT SCH (09:00)
[2023-07-11] MEDS: TRIPLE PASTE 2OZ OINTMENT TOP SCH (09:36)
[2023-07-11] MEDS: VALPROIC ACID 500MG/10ML SOL ORAL SYRINGE GT SCH (09:36)
[2023-07-11] MEDS: ENOXAPARIN 40MG/0.4ML SYRINGE (J1650 PER 10MG) SC SCH (09:36)
[2023-07-11] MEDS: LACTOBACILLUS ACIDOPHILUS CAP (BACID) PEG SCH (09:36)
[2023-07-11] MEDS: QUEtiapine FUMARATE 100 MG TAB GT SCH (09:37)
[2023-07-11] MEDS: SOD POLYSTYRENE SULFONATE SUSP 30GM 120ML ENEMA PR STA (09:39)
[2023-07-11] MEDS: PANTOPRAZOLE 40MG VIAL IV SCH (09:39)
[2023-07-11] MEDS: LORazepam 0.5 MG TAB GT SCH (09:41)
[2023-07-11] MEDS: LevoFLOXacin IV 750 MG in IV 1 EA IV SCH (11:32)
[2023-07-11] MEDS: CitaloPRAM (CeleXA) 20 MG TAB GT SCH (12:13)
[2023-07-11 12:41] LABS: BLOOD UREA NITROGEN 25 MG/DL (9-23); CALCIUM LEVEL 8.8 MG/DL (8.3-10.6); CARBON DIOXIDE LEVEL 26 MMOL/L (20-31); CHLORIDE LEVEL 101 MMOL/L (98-107); GLOMERULAR FILTRATION RATE > 60.0 (>42); GLUCOSE, FASTING 98 MG/DL (74-106); POTASSIUM SERUM 4.7 MMOL/L (3.5-5.1); SODIUM LEVEL 134 MMOL/L (136-145)
[2023-07-11 17:38] LABS: HEPATITIS B SURFACE ANTIBODY POSITIVE (POSITIVE)
[2023-07-11 17:50] LABS: HEPATITIS B SURFACE ANTIGEN NEGATIVE (NEGATIVE)
[2023-07-11 18:03] LABS: HIV 1&2 SCREEN NEGATIVE (NEGATIVE)
[2023-07-11 18:10] LABS: HEPATITIS C VIRUS ABY INDEX < 0.02 INDEX (<0.8)
[2023-07-11 19:05] LABS: IMMUNOGLOBULIN A 302.7 MG/DL (40-350); IMMUNOGLOBULIN G 1534 MG/DL (650-1600)
[2023-07-11 19:10] LABS: ANISOCYTOSIS 1+; HYPOCHROMASIA 1+; LYMPHOCYTES 5 % (16-44); MONOCYTES 12 % (0-5); NEUTROPHILS 79 % (28-66); PLATELET ESTIMATE NORMAL (NORMAL); POLYCHROMASIA 1+
[2023-07-11] MEDS: QUEtiapine FUMARATE 200 MG TAB GT SCH (20:24)
[2023-07-11] MEDS ORDERED: SENNA 8.6 MG TAB (SENOKOT) GT SCH (21:00)
[2023-07-12] VITALS (7 sets, daily range): BP systolic 115–143; BP diastolic 70–78; TEMP 96.7–97.4; O2SAT 94–99
[2023-07-12 05:30] LABS: BASO % 0.1 % (0.0-1.0); EOS # 0.1 10^3/uL (0.0-0.5); EOS % 0.6 % (0.0-3.0); HEMATOCRIT 34.5 % (42.0-52.0); HEMOGLOBIN 11.2 g/dl (13.5-17.5); LYMPH # 1.4 10^3/uL (1.5-5.0); LYMPH % 13.8 % (24.0-44.0); MEAN CORPUSCULAR HEMOGLOBIN 31.4 pg (27.0-33.0); MEAN CORPUSCULAR HGB CONC 32.5 g/dl (32.0-36.5); MEAN CORPUSCULAR VOLUME 96.6 fl (80.0-96.0); MONO # 1.6 10^3/uL (0.0-0.8); MONO % 15.6 % (2.0-8.0); NEUTROPHILS # 6.9 10^3/uL (1.5-8.5); NEUTROPHILS % 69.3 % (36.0-66.0); PLATELET COUNT, AUTOMATED 158 10^3/uL (150-450); RED BLOOD COUNT 3.57 10^6/uL (4.30-6.10)
[2023-07-12 06:21] LABS: ALBUMIN 2.7 G/DL (3.2-5.2); ALKALINE PHOSPHATASE 97 U/L (46-116); ALT/SGPT 57 U/L (7.0-40); AST/SGOT 95 U/L (<34); BILIRUBIN,DIRECT 0.1 MG/DL (<0.4); BILIRUBIN,TOTAL 0.3 MG/DL (0.3-1.2); BLOOD UREA NITROGEN 22 MG/DL (9-23); CALCIUM LEVEL 8.6 MG/DL (8.3-10.6); CARBON DIOXIDE LEVEL 28 MMOL/L (20-31); CHLORIDE LEVEL 100 MMOL/L (98-107); CREATININE FOR GFR 1.06 MG/DL (0.70-1.30); GLOMERULAR FILTRATION RATE > 60.0 (>42); GLUCOSE, FASTING 90 MG/DL (74-106); MAGNESIUM LEVEL 1.9 MG/DL (1.8-2.4); POTASSIUM SERUM 4.5 MMOL/L (3.5-5.1); SODIUM LEVEL 134 MMOL/L (136-145)
[2023-07-12] MEDS ORDERED: propofoL 200 MG/20 ML VIAL As Ordered ONE (08:10)
[2023-07-12] MEDS ORDERED: SUGAMMADEX SODIUM 500 MG/5 ML VIAL (BRIDION) As Ordered ONE (08:10)
[2023-07-12] MEDS ORDERED: ONDANSETRON 4MG 2ML VIAL As Ordered ONE (08:10)
[2023-07-12] MEDS ORDERED: LIDOCAINE 2% 100MG/5ML SDV (FOR ANES.) As Ordered ONE (08:10)
[2023-07-12] MEDS ORDERED: ROCURONIUM BROMIDE 50MG/5ML VIAL As Ordered ONE (08:10)
[2023-07-12] MEDS ORDERED: LEVO1TAB40 PEG (11:09)
[2023-07-12] MEDS ORDERED: propofoL 500 MG/50 ML VIAL As Ordered ONE (13:15)
[2023-07-12] MEDS: CETACAINE SPRAY 5GM As Ordered ONE (15:00)
[2023-07-12] MEDS: EPINEPHrine 1MG/10ML SYRINGE 1.5IN As Ordered ONE (15:00)
[2023-07-12] MEDS ORDERED: ONDANSETRON 4MG 2ML VIAL IV PRN (15:50)
[2023-07-12] MEDS ORDERED: oxyCODONE 5MG TAB PO PRN (15:50)
[2023-07-12] MEDS ORDERED: MORPHINE 2 MG/ML 1ML VIAL IV PRN (15:50)
[2023-07-12] MEDS: EPINEPHrine 1MG/ML INJ 30ML MD-VIAL As Ordered ONE (15:58)
[2023-07-12] MEDS: THROMBIN 5,000 UNITS VIAL As Ordered ONE (15:58)
[2023-07-12] MEDS ORDERED: IPRATROPIUM 0.5MG/ALBUTEROL 2.5MG INH SOL UD 3ML (DUONEB) As Ordered ONE (16:46)
[2023-07-12] MEDS: IPRATROPIUM 0.5MG/ALBUTEROL 2.5MG INH SOL UD 3ML (DUONEB) NEB ONE (16:59)
[2023-07-13] VITALS (8 sets, daily range): BP systolic 132–142; BP diastolic 62–70; TEMP 97.8–97.9; O2SAT 90–99
[2023-07-13 05:03] LABS: BASO % 0.2 % (0.0-1.0); HEMATOCRIT 33.8 % (42.0-52.0); HEMOGLOBIN 11.2 g/dl (13.5-17.5); LYMPH # 0.9 10^3/uL (1.5-5.0); MEAN CORPUSCULAR HGB CONC 33.1 g/dl (32.0-36.5); MEAN CORPUSCULAR VOLUME 96.6 fl (80.0-96.0); MONO # 0.8 10^3/uL (0.0-0.8); MONO % 8.9 % (2.0-8.0); NEUTROPHILS # 6.8 10^3/uL (1.5-8.5); PLATELET COUNT, AUTOMATED 168 10^3/uL (150-450); WHITE BLOOD COUNT 8.5 10^3/uL (4.0-10.0)
[2023-07-13 05:30] LABS: ALBUMIN 2.5 G/DL (3.2-5.2); ALKALINE PHOSPHATASE 92 U/L (46-116); ALT/SGPT 47 U/L (7.0-40); AST/SGOT 64 U/L (<34); BILIRUBIN,DIRECT 0.1 MG/DL (<0.4); BILIRUBIN,TOTAL 0.3 MG/DL (0.3-1.2); BLOOD UREA NITROGEN 21 MG/DL (9-23); CALCIUM LEVEL 8.4 MG/DL (8.3-10.6); CARBON DIOXIDE LEVEL 28 MMOL/L (20-31); CHLORIDE LEVEL 102 MMOL/L (98-107); CREATININE FOR GFR 0.95 MG/DL (0.70-1.30); GLOMERULAR FILTRATION RATE > 60.0 (>42); GLUCOSE, FASTING 111 MG/DL (74-106); MAGNESIUM LEVEL 1.7 MG/DL (1.8-2.4); POTASSIUM SERUM 4.5 MMOL/L (3.5-5.1); SODIUM LEVEL 137 MMOL/L (136-145)
[2023-07-13] MEDS: MAG SULF 1GM/100ML (MAG RUN) 1 GM in IV 1 EA IV ONE (08:45)
== END 2023-07-13 13:00 | disposition home or self-care (01) | DRG 193 ==
LOC: M ED 09:27 → EDBD 09:27 → M ED INP 16:13 → M PCU 22:57
PROVIDERS: ADMIT Internal Medicine; ATTEND Internal Medicine
PROC: 0B9J8ZX Drainage of Left Lower Lung Lobe, Via Natural or Artificial Opening Endoscopic, Diagnostic (ICD-10-PCS; principal; 2023-07-12 12:30)
DX: J18.9 Pneumonia, unspecified organism (principal); J96.01 Acute respiratory failure with hypoxia; I50.30 Unspecified diastolic (congestive) heart failure; E87.20 Acidosis, unspecified; F72 Severe intellectual disabilities; E87.1 Hypo-osmolality and hyponatremia; I16.0 Hypertensive urgency; E87.5 Hyperkalemia; N18.30 Chronic kidney disease, stage 3 unspecified; K21.9 Gastro-esophageal reflux disease without esophagitis; R13.12 Dysphagia, oropharyngeal phase; G40.909 Epilepsy, unspecified, not intractable, without status epilepticus; E83.42 Hypomagnesemia; R91.8 Other nonspecific abnormal finding of lung field; J69.0 Pneumonitis due to inhalation of food and vomit; Z88.0 Allergy status to penicillin; Z88.8 Allergy status to other drugs, medicaments and biological substances; Z79.899 Other long term (current) drug therapy; Z93.1 Gastrostomy status; F20.9 Schizophrenia, unspecified

== ENCOUNTER → 2023-07-29 | Outpatient (REF) | payer MEDICARE, MEDICAID ==
[2023-07-29 14:41] LABS: BLOOD UREA NITROGEN 28 MG/DL (9-23); CALCIUM LEVEL 9.8 MG/DL (8.3-10.6); CARBON DIOXIDE LEVEL 39 MMOL/L (20-31); CHLORIDE LEVEL 95 MMOL/L (98-107); CREATININE FOR GFR 1.09 MG/DL (0.70-1.30); GLOMERULAR FILTRATION RATE > 60.0 (>42); GLUCOSE, FASTING 96 MG/DL (74-106); POTASSIUM SERUM 4.1 MMOL/L (3.5-5.1); SODIUM LEVEL 136 MMOL/L (136-145)
== END ==
LOC: M LABWUC 12:54
PROVIDERS: ATTEND Nurse Practitioner Family
DX: R60.0 Localized edema (principal)

== ENCOUNTER → 2023-08-17 | Outpatient (CLI) | payer MEDICARE, MEDICAID | LOC: M RAD 10:48 | PROVIDERS: ATTEND Internal Medicine Pulmonary Disease | DX: R91.8 Other nonspecific abnormal finding of lung field (principal); Z93.1 Gastrostomy status ==

== ENCOUNTER → 2023-09-07 | Outpatient (CLI) | payer MEDICARE, MEDICAID | LOC: M CARPUL 09:19 | PROVIDERS: ATTEND Nurse Practitioner Family | DX: Z86.79 Personal history of other diseases of the circulatory system (principal); J80 Acute respiratory distress syndrome ==

== ENCOUNTER 2023-11-17 06:24 | Inpatient (IN) | payer MEDICARE, MEDICAID ==
[~2023-11-17] VITALS: Ht 160 cm; Wt 84.0 kg
[~2023-11-17 06:24] MED LIST changes: -DOXY50CA35 PO; +DOXY50CA50 PO
[2023-11-17] MEDS: IPRATROPIUM 0.5MG/ALBUTEROL 2.5MG INH SOL UD 3ML (DUONEB) NEB PRN (06:35)
[2023-11-17] MEDS ORDERED: LevoFLOXacin IV 750 MG in IV 1 EA IV ONE (06:40)
[2023-11-17 06:54] LABS: BASO % 0.2 % (0.0-1.0); EOS % 0.2 % (0.0-3.0); HEMATOCRIT 38.6 % (42.0-52.0); HEMOGLOBIN 12.7 g/dl (13.5-17.5); LYMPH # 2.2 10^3/uL (1.5-5.0); LYMPH % 14.5 % (24.0-44.0); MEAN CORPUSCULAR HEMOGLOBIN 32.2 pg (27.0-33.0); MEAN CORPUSCULAR HGB CONC 32.9 g/dl (32.0-36.5); MONO # 1.8 10^3/uL (0.0-0.8); MONO % 11.7 % (2.0-8.0); NEUTROPHILS # 11.2 10^3/uL (1.5-8.5); NEUTROPHILS % 72.6 % (36.0-66.0); PLATELET COUNT, AUTOMATED 228 10^3/uL (150-450); RED BLOOD COUNT 3.94 10^6/uL (4.30-6.10); WHITE BLOOD COUNT 15.4 10^3/uL (4.0-10.0)
[2023-11-17 07:16] LABS: ABG BASE EXCESS 2.7 (-2.0-2.0); ABG HCO3 29.4 MMOL/L (22.0-26.0); ABG O2 SATURATION 99.1 % (95.0-99.0); ABG PARTIAL PRESSURE CO2 54.3 mmHg (35.0-45.0); ABG PARTIAL PRESSURE O2 151.9 mmHg (75.0-100.0); ABG STANDARD HCO3 26.9 MMOL/L. (22.0-26.0); ABG TOTAL CO2 31.1 MMOL/L (23.0-31.0); ABG pH (ARTERIAL) 7.352 UNITS (7.350-7.450)
[2023-11-17 07:24] LABS: ALBUMIN 3.4 G/DL (3.2-5.2); ALKALINE PHOSPHATASE 109 U/L (46-116); ALT/SGPT 42 U/L (7.0-40); AST/SGOT 63 U/L (<34); BILIRUBIN,DIRECT 0.2 MG/DL (<0.4); BILIRUBIN,TOTAL 0.5 MG/DL (0.3-1.2); BLOOD UREA NITROGEN 28 MG/DL (9-23); CALCIUM LEVEL 9.4 MG/DL (8.3-10.6); CARBON DIOXIDE LEVEL 32 MMOL/L (20-31); CHLORIDE LEVEL 91 MMOL/L (98-107); CK-MB VALUE MASS < 1.0 NG/ML (<3.6); GLOMERULAR FILTRATION RATE > 60.0 (>42); GLUCOSE, FASTING 143 MG/DL (74-106); POTASSIUM SERUM 4.3 MMOL/L (3.5-5.1); SODIUM LEVEL 130 MMOL/L (136-145); TOTAL PROTEIN 7.9 G/DL (5.7-8.2)
[2023-11-17 07:30] LABS: CPK CREATINE PHOSPHOKINASE 470 U/L (46-171); MB/CK RELATIVE INDEX 0.21 (< OR =4)
[2023-11-17] MEDS: cefTRIAXone SOD 2 GM in D5W MINI-BAG PLUS 50 ML IV ONE (07:38)
[2023-11-17] MEDS: ACETAMINOPHEN *IV* 1,000 MG in IV 1 EA IV ONE ×2 (07:38→14:51)
[2023-11-17] MEDS: NS 2,540 ML in IV 1 EA IV ONE (07:48)
[2023-11-17] MEDS ORDERED: MED REC IN PROGRESS XX SCH (09:35)
[2023-11-17] MEDS ORDERED: FURO10EL GT (10:15)
[2023-11-17] MEDS ORDERED: NEPR1LIQ2 GT (10:15)
[2023-11-17] MEDS ORDERED: VITA1200 GT (10:15)
[2023-11-17] MEDS ORDERED: HOME MED LIST COMPLETE! XX SCH (10:15)
[2023-11-17] MEDS: ALBUTEROL SULFATE 2.5MG/0.5ML INH NEB SOLN NEB SCH (16:33)
[2023-11-17] MEDS ORDERED: MIRALAX *UNIT DOSE* 17GM PACKET GT PRN (16:35)
[2023-11-17] MEDS ORDERED: ACETAMINOPHEN 325 MG TAB GT PRN (16:35)
[2023-11-17] MEDS ORDERED: BALMEX CREAM 60GM TOP PRN (16:35)
[2023-11-17] MEDS: FUROSEMIDE 100MG/10ML VIAL IV ONE (17:20)
[2023-11-17] MEDS: FORMOTEROL FUMARATE 20 MCG/2 ML INHALATION SOLUTION (PERFOROMIST) INH SCH (20:20)
[2023-11-17 21:15] VITALS: BP 145/89; TEMP 100.3; O2SAT 100
[2023-11-17 21:30] VITALS: O2SAT 98
[2023-11-17] MEDS: SENNA 8.6 MG TAB (SENOKOT) GT SCH (21:37)
[2023-11-17] MEDS: QUEtiapine FUMARATE 200 MG TAB GT SCH (21:37)
[2023-11-17] MEDS: LORazepam 0.5 MG TAB GT SCH (21:37)
[2023-11-17] MEDS: ACETAMINOPHEN TAB 650MG DOSE (2X325MG) GT PRN (21:38)
[2023-11-17] MEDS: VALPROIC ACID 250MG/5ML SOL ORAL SYRINGE GT SCH (21:56)
[2023-11-17 22:00] VITALS: BP 129/85; O2SAT 93
[2023-11-17 23:00] VITALS: BP 102/56; O2SAT 96
[2023-11-17 23:30] VITALS: O2SAT 98
[2023-11-18] VITALS (21 sets, daily range): BP systolic 101–155; BP diastolic 54–100; TEMP 98.1–99.9; O2SAT 87–98
[2023-11-18 05:43] LABS: MEAN CORPUSCULAR HEMOGLOBIN 32.1 pg (27.0-33.0); MEAN CORPUSCULAR HGB CONC 32.4 g/dl (32.0-36.5); MEAN CORPUSCULAR VOLUME 99.1 fl (80.0-96.0); PLATELET COUNT, AUTOMATED 165 10^3/uL (150-450); RED BLOOD COUNT 3.24 10^6/uL (4.30-6.10); WHITE BLOOD COUNT 6.8 10^3/uL (4.0-10.0)
[2023-11-18] MEDS: FUROSEMIDE 20 MG TAB GT SCH (06:06)
[2023-11-18 06:16] LABS: HEMATOCRIT 32.1 % (42.0-52.0); HEMOGLOBIN 10.4 g/dl (13.5-17.5)
[2023-11-18 06:22] LABS: ATYPICAL LYMPH 3 % (0-5); MONOCYTES 7 % (0-5); PLATELET ESTIMATE NORMAL (NORMAL)
[2023-11-18 06:23] LABS: LYMPHOCYTES 12 % (16-44); NEUTROPHILS 64 % (28-66)
[2023-11-18 06:24] LABS: POLYCHROMASIA 1+
[2023-11-18 06:29] LABS: ALBUMIN 2.3 G/DL (3.2-5.2); ALKALINE PHOSPHATASE 62 U/L (46-116); ALT/SGPT 25 U/L (7.0-40); AST/SGOT 37 U/L (<34); BILIRUBIN,TOTAL 0.5 MG/DL (0.3-1.2); BLOOD UREA NITROGEN 27 MG/DL (9-23); CALCIUM LEVEL 9.1 MG/DL (8.3-10.6); CARBON DIOXIDE LEVEL 32 MMOL/L (20-31); CHLORIDE LEVEL 100 MMOL/L (98-107); CREATININE FOR GFR 1.23 MG/DL (0.70-1.30); GLOMERULAR FILTRATION RATE > 60.0 (>42); GLUCOSE, FASTING 110 MG/DL (74-106); MAGNESIUM LEVEL 1.6 MG/DL (1.8-2.4); PHOSPHORUS LEVEL 3.1 MG/DL (2.4-5.1); POTASSIUM SERUM 4.2 MMOL/L (3.5-5.1); SODIUM LEVEL 136 MMOL/L (136-145); TOTAL PROTEIN 6.2 G/DL (5.7-8.2)
[2023-11-18] MEDS: MAG SULF 1GM/100ML (MAG RUN) 1 GM in IV 1 EA IV ONE (07:28)
[2023-11-18] MEDS: QUEtiapine FUMARATE 100 MG TAB GT SCH (08:50)
[2023-11-18] MEDS: ENOXAPARIN 40MG/0.4ML SYRINGE (J1650 PER 10MG) SC SCH (08:50)
[2023-11-18] MEDS: PANTOPRAZOLE 40MG VIAL IV SCH (08:50)
[2023-11-18] MEDS: MIRALAX *UNIT DOSE* 17GM PACKET GT SCH (08:50)
[2023-11-18] MEDS: CitaloPRAM (CeleXA) 20 MG TAB GT SCH (13:08)
[2023-11-18] MEDS: FUROSEMIDE 40 MG TAB GT SCH (13:08)
[2023-11-18] MEDS ORDERED: LevoFLOXacin IV 750 MG in IV 1 EA IV SCH (19:15)
[2023-11-18] MEDS: cefTRIAXone SOD 1 GM in D5W MINI-BAG PLUS 50 ML IV SCH (21:50)
[2023-11-19] VITALS (25 sets, daily range): BP systolic 90–177; BP diastolic 51–128; TEMP 97.8–99.1; O2SAT 86–97
[2023-11-19 05:29] LABS: HEMATOCRIT 30.5 % (42.0-52.0); MEAN CORPUSCULAR HEMOGLOBIN 32.4 pg (27.0-33.0); MEAN CORPUSCULAR HGB CONC 32.8 g/dl (32.0-36.5); MEAN CORPUSCULAR VOLUME 98.7 fl (80.0-96.0); PLATELET COUNT, AUTOMATED 172 10^3/uL (150-450); RED BLOOD COUNT 3.09 10^6/uL (4.30-6.10)
[2023-11-19 05:58] LABS: ALBUMIN 2.3 G/DL (3.2-5.2); ALKALINE PHOSPHATASE 69 U/L (46-116); ALT/SGPT 24 U/L (7.0-40); AST/SGOT 27 U/L (<34); BILIRUBIN,TOTAL 0.5 MG/DL (0.3-1.2); BLOOD UREA NITROGEN 23 MG/DL (9-23); CALCIUM LEVEL 8.9 MG/DL (8.3-10.6); CARBON DIOXIDE LEVEL 32 MMOL/L (20-31); CHLORIDE LEVEL 98 MMOL/L (98-107); CREATININE FOR GFR 1.17 MG/DL (0.70-1.30); GLOMERULAR FILTRATION RATE > 60.0 (>42); GLUCOSE, FASTING 103 MG/DL (74-106); POTASSIUM SERUM 3.7 MMOL/L (3.5-5.1); SODIUM LEVEL 136 MMOL/L (136-145); TOTAL PROTEIN 6.3 G/DL (5.7-8.2)
[2023-11-19 06:13] LABS: LYMPHOCYTES 15 % (16-44); MONOCYTES 8 % (0-5); NEUTROPHILS 54 % (28-66)
[2023-11-19 06:15] LABS: ANISOCYTOSIS 1+; MICROCYTOSIS 1+; PLATELET ESTIMATE NORMAL (NORMAL)
[2023-11-19] MEDS ORDERED: METOPROLOL 5 MG/5 ML VIAL As Ordered ONE (08:24)
[2023-11-19] MEDS ORDERED: METOPROLOL 5 MG/5 ML VIAL IV STA (08:41)
[2023-11-19 09:00] LABS: VENOUS BASE EXCESS 5.3 (-2.0-2.0); VENOUS HCO3 30.9 MMOL/L (23.0-27.0); VENOUS O2 SATURATION 98.7 % (60.0-80.0); VENOUS PARTIAL PRESSURE CO2 49.8 mmHg (38.0-50.0); VENOUS PARTIAL PRESSURE O2 161.4 mmHg (30.0-50.0); VENOUS STANDARD HCO3 29.3 MMOL/L; VENOUS TOTAL CO2 32.4 MMOL/L (24.0-28.0)
[2023-11-19] MEDS: METOPROLOL 5 MG/5 ML VIAL IV STA (09:30)
[2023-11-19] MEDS: D5W/LR 1,000 ML IV SCH (09:40)
[2023-11-19 12:20] LABS: VENOUS BASE EXCESS 8.1 (-2.0-2.0); VENOUS HCO3 32.5 MMOL/L (23.0-27.0); VENOUS O2 SATURATION 98.5 % (60.0-80.0); VENOUS PARTIAL PRESSURE CO2 44.8 mmHg (38.0-50.0); VENOUS PARTIAL PRESSURE O2 146.8 mmHg (30.0-50.0); VENOUS PH 7.479 UNITS (7.330-7.430); VENOUS STANDARD HCO3 31.9 MMOL/L; VENOUS TOTAL CO2 33.9 MMOL/L (24.0-28.0)
[2023-11-19 12:59] LABS: MAGNESIUM LEVEL 1.8 MG/DL (1.8-2.4); PHOSPHORUS LEVEL 4.2 MG/DL (2.4-5.1)
[2023-11-20] VITALS (19 sets, daily range): BP systolic 101–146; BP diastolic 55–78; TEMP 97–98.6; O2SAT 92–100
[2023-11-20 05:06] LABS: BASO % 0.2 % (0.0-1.0); EOS # 0.1 10^3/uL (0.0-0.5); EOS % 0.9 % (0.0-3.0); HEMATOCRIT 29.7 % (42.0-52.0); HEMOGLOBIN 9.5 g/dl (13.5-17.5); LYMPH # 0.6 10^3/uL (1.5-5.0); LYMPH % 6.7 % (24.0-44.0); MEAN CORPUSCULAR HEMOGLOBIN 32.1 pg (27.0-33.0); MEAN CORPUSCULAR VOLUME 100.3 fl (80.0-96.0); MONO # 1.2 10^3/uL (0.0-0.8); MONO % 12.9 % (2.0-8.0); NEUTROPHILS # 7.1 10^3/uL (1.5-8.5); PLATELET COUNT, AUTOMATED 181 10^3/uL (150-450); RED BLOOD COUNT 2.96 10^6/uL (4.30-6.10); WHITE BLOOD COUNT 9.2 10^3/uL (4.0-10.0)
[2023-11-20 05:41] LABS: ALBUMIN 2.2 G/DL (3.2-5.2); ALKALINE PHOSPHATASE 78 U/L (46-116); ALT/SGPT 20 U/L (7.0-40); AST/SGOT 35 U/L (<34); BILIRUBIN,TOTAL 0.2 MG/DL (0.3-1.2); BLOOD UREA NITROGEN 23 MG/DL (9-23); CALCIUM LEVEL 9.1 MG/DL (8.3-10.6); CARBON DIOXIDE LEVEL 35 MMOL/L (20-31); CHLORIDE LEVEL 105 MMOL/L (98-107); CREATININE FOR GFR 1.12 MG/DL (0.70-1.30); GLOMERULAR FILTRATION RATE > 60.0 (>42); GLUCOSE, FASTING 115 MG/DL (74-106); MAGNESIUM LEVEL 1.8 MG/DL (1.8-2.4); PHOSPHORUS LEVEL 5.7 MG/DL (2.4-5.1); POTASSIUM SERUM 3.9 MMOL/L (3.5-5.1); SODIUM LEVEL 140 MMOL/L (136-145); TOTAL PROTEIN 6.1 G/DL (5.7-8.2)
[2023-11-20] MEDS: D5W/LR 1,000 ML IV SCH (06:40)
[2023-11-21] VITALS (15 sets, daily range): BP systolic 94–137; BP diastolic 50–103; TEMP 97.4–100.6; O2SAT 91–97
[2023-11-21] MEDS: CEFEPIME HCL 2 GM in D5W MINI-BAG PLUS 50 ML IV SCH (00:42)
[2023-11-21] MEDS: ACETAMINOPHEN *IV* 1,000 MG in IV 1 EA IV ONE (00:42)
[2023-11-21 06:29] LABS: ALBUMIN 1.9 G/DL (3.2-5.2); ALKALINE PHOSPHATASE 96 U/L (46-116); ALT/SGPT 27 U/L (7.0-40); AST/SGOT 40 U/L (<34); BILIRUBIN,TOTAL 0.2 MG/DL (0.3-1.2); BLOOD UREA NITROGEN 24 MG/DL (9-23); CALCIUM LEVEL 8.3 MG/DL (8.3-10.6); CARBON DIOXIDE LEVEL 36 MMOL/L (20-31); CHLORIDE LEVEL 100 MMOL/L (98-107); CREATININE FOR GFR 1.22 MG/DL (0.70-1.30); GLOMERULAR FILTRATION RATE > 60.0 (>42); GLUCOSE, FASTING 69 MG/DL (74-106); MAGNESIUM LEVEL 1.8 MG/DL (1.8-2.4); POTASSIUM SERUM 3.4 MMOL/L (3.5-5.1); SODIUM LEVEL 141 MMOL/L (136-145); TOTAL PROTEIN 5.7 G/DL (5.7-8.2)
[2023-11-21] MEDS: KCL 10MEQ/100ML SWI (KRUN) 10 MEQ in IV 1 EA IV SCH (10:18)
[2023-11-21] MEDS: MAG SULF 1GM/100ML (MAG RUN) 1 GM in IV 1 EA IV ONE (12:07)
[2023-11-21] MEDS: FUROSEMIDE 40MG/4ML VIAL IV SCH (12:08)
[2023-11-21] MEDS: POTASSIUM CHLORIDE 10% LIQ 20MEQ/15ML UDC PO ONE ×2 (12:09→16:34)
[2023-11-21 20:21] LABS: CALCIUM LEVEL 8.4 MG/DL (8.3-10.6); CREATININE FOR GFR 1.26 MG/DL (0.70-1.30); GLOMERULAR FILTRATION RATE 59.7 (>42); POTASSIUM SERUM 4.4 MMOL/L (3.5-5.1)
[2023-11-22] VITALS (15 sets, daily range): BP systolic 96–137; BP diastolic 55–76; TEMP 96.9–100; O2SAT 88–96
[2023-11-22 06:39] LABS: BILIRUBIN,TOTAL 0.3 MG/DL (0.3-1.2); CALCIUM LEVEL 8.6 MG/DL (8.3-10.6); CREATININE FOR GFR 1.29 MG/DL (0.70-1.30); GLOMERULAR FILTRATION RATE 58.1 (>42); PHOSPHORUS LEVEL 4.6 MG/DL (2.4-5.1); POTASSIUM SERUM 4.2 MMOL/L (3.5-5.1); TOTAL PROTEIN 6.2 G/DL (5.7-8.2)
[2023-11-22] MEDS ORDERED: guaiFENesin SYRUP 200MG 10ML UDC PO PRN (12:30)
[2023-11-23] VITALS (15 sets, daily range): BP systolic 100–128; BP diastolic 52–60; TEMP 98.1–99.3; O2SAT 89–96
[2023-11-23 05:31] LABS: HEMATOCRIT 28.2 % (42.0-52.0); HEMOGLOBIN 9.1 g/dl (13.5-17.5); MEAN CORPUSCULAR HEMOGLOBIN 32.2 pg (27.0-33.0); MEAN CORPUSCULAR HGB CONC 32.3 g/dl (32.0-36.5); MEAN CORPUSCULAR VOLUME 99.6 fl (80.0-96.0); PLATELET COUNT, AUTOMATED 207 10^3/uL (150-450); RED BLOOD COUNT 2.83 10^6/uL (4.30-6.10); WHITE BLOOD COUNT 7.7 10^3/uL (4.0-10.0)
[2023-11-23 05:54] LABS: ATYPICAL LYMPH 1 % (0-5); EOSINOPHILS 4 % (0-3); LYMPHOCYTES 27 % (16-44); MONOCYTES 20 % (0-5); NEUTROPHILS 44 % (28-66); PLATELET ESTIMATE NORMAL (NORMAL)
[2023-11-23 05:55] LABS: BILIRUBIN,TOTAL 0.3 MG/DL (0.3-1.2); CALCIUM LEVEL 9.3 MG/DL (8.3-10.6); CREATININE FOR GFR 1.47 MG/DL (0.70-1.30); MAGNESIUM LEVEL 2.2 MG/DL (1.8-2.4); PHOSPHORUS LEVEL 5.1 MG/DL (2.4-5.1); POTASSIUM SERUM 4.4 MMOL/L (3.5-5.1); TOTAL PROTEIN 6.1 G/DL (5.7-8.2)
[2023-11-23 05:56] LABS: ANISOCYTOSIS 1+
[2023-11-23 05:57] LABS: HYPOCHROMASIA 1+; POLYCHROMASIA 1+
[2023-11-24] VITALS (23 sets, daily range): BP systolic 97–116; BP diastolic 52–56; TEMP 97.4–98.2; O2SAT 89–95
[2023-11-24 05:40] LABS: ALBUMIN 1.9 G/DL (3.2-5.2); BILIRUBIN,TOTAL 0.2 MG/DL (0.3-1.2); CALCIUM LEVEL 9.2 MG/DL (8.3-10.6); CREATININE FOR GFR 1.46 MG/DL (0.70-1.30); GLOMERULAR FILTRATION RATE 50.4 (>42); MAGNESIUM LEVEL 2.5 MG/DL (1.8-2.4); PHOSPHORUS LEVEL 4.5 MG/DL (2.4-5.1); POTASSIUM SERUM 4.2 MMOL/L (3.5-5.1)
[2023-11-24] MEDS: NEOSPORIN TOP OINT 15GM TOP SCH (20:37)
[2023-11-25] VITALS (9 sets, daily range): BP systolic 92–122; BP diastolic 52–58; TEMP 97.7–98.4; O2SAT 89–97
[2023-11-25 04:59] LABS: BASO # 0.1 10^3/uL (0.0-0.2); BASO % 0.7 % (0.0-1.0); EOS # 0.3 10^3/uL (0.0-0.5); HEMATOCRIT 28.5 % (42.0-52.0); HEMOGLOBIN 8.9 g/dl (13.5-17.5); LYMPH # 1.5 10^3/uL (1.5-5.0); LYMPH % 19.4 % (24.0-44.0); MEAN CORPUSCULAR HEMOGLOBIN 31.2 pg (27.0-33.0); MEAN CORPUSCULAR HGB CONC 31.2 g/dl (32.0-36.5); MONO % 13.4 % (2.0-8.0); NEUTROPHILS # 3.8 10^3/uL (1.5-8.5); PLATELET COUNT, AUTOMATED 269 10^3/uL (150-450); RED BLOOD COUNT 2.85 10^6/uL (4.30-6.10); WHITE BLOOD COUNT 7.5 10^3/uL (4.0-10.0)
[2023-11-25 05:27] LABS: BILIRUBIN,TOTAL 0.2 MG/DL (0.3-1.2); CALCIUM LEVEL 9.7 MG/DL (8.3-10.6); CREATININE FOR GFR 1.55 MG/DL (0.70-1.30); POTASSIUM SERUM 4.4 MMOL/L (3.5-5.1); TOTAL PROTEIN 6.1 G/DL (5.7-8.2)
[2023-11-25] MEDS: VALPROIC ACID 500MG/10ML SOL ORAL SYRINGE GT SCH (19:07)
[2023-11-26 04:00] VITALS: BP 94/52; TEMP 97.7; O2SAT 97
[2023-11-26 08:04] VITALS: BP 149/60; TEMP 97.5; O2SAT 93
[2023-11-26 08:53] LABS: BASO # 0.1 10^3/uL (0.0-0.2); BASO % 0.6 % (0.0-1.0); EOS # 0.3 10^3/uL (0.0-0.5); EOS % 3.1 % (0.0-3.0); HEMATOCRIT 29.4 % (42.0-52.0); HEMOGLOBIN 9.3 g/dl (13.5-17.5); LYMPH # 1.6 10^3/uL (1.5-5.0); MEAN CORPUSCULAR HEMOGLOBIN 31.5 pg (27.0-33.0); MEAN CORPUSCULAR HGB CONC 31.6 g/dl (32.0-36.5); MEAN CORPUSCULAR VOLUME 99.7 fl (80.0-96.0); MONO # 0.9 10^3/uL (0.0-0.8); NEUTROPHILS # 4.8 10^3/uL (1.5-8.5); PLATELET COUNT, AUTOMATED 303 10^3/uL (150-450); RED BLOOD COUNT 2.95 10^6/uL (4.30-6.10); WHITE BLOOD COUNT 8.2 10^3/uL (4.0-10.0)
[2023-11-26 09:14] LABS: CALCIUM LEVEL 9.7 MG/DL (8.3-10.6); CREATININE FOR GFR 1.53 MG/DL (0.70-1.30); GLOMERULAR FILTRATION RATE 47.7 (>42)
[2023-11-26 12:00] VITALS: TEMP 98.5
[2023-11-26] MEDS: BUDESONIDE 0.5 MG/2 ML INHALATION SUSPENSION NEB SCH (12:59)
[2023-11-26] MEDS: ALBUTEROL SULFATE 2.5MG/0.5ML INH NEB SOLN NEB SCH (13:00)
[2023-11-26 17:30] VITALS: BP 118/56; TEMP 98.2; O2SAT 95
[2023-11-26 20:00] VITALS: BP 144/63; TEMP 97.9; O2SAT 97
[2023-11-27 00:08] VITALS: BP 124/60; TEMP 98.3; O2SAT 92
[2023-11-27 04:04] VITALS: BP 105/57; TEMP 98.7; O2SAT 91
[2023-11-27 05:32] LABS: BASO % 0.3 % (0.0-1.0); EOS # 0.2 10^3/uL (0.0-0.5); EOS % 2.3 % (0.0-3.0); HEMATOCRIT 29.5 % (42.0-52.0); HEMOGLOBIN 9.4 g/dl (13.5-17.5); LYMPH # 1.6 10^3/uL (1.5-5.0); LYMPH % 17.9 % (24.0-44.0); MEAN CORPUSCULAR HEMOGLOBIN 31.5 pg (27.0-33.0); MEAN CORPUSCULAR HGB CONC 31.9 g/dl (32.0-36.5); MONO # 0.9 10^3/uL (0.0-0.8); NEUTROPHILS # 5.9 10^3/uL (1.5-8.5); NEUTROPHILS % 65.4 % (36.0-66.0); PLATELET COUNT, AUTOMATED 326 10^3/uL (150-450); RED BLOOD COUNT 2.98 10^6/uL (4.30-6.10); WHITE BLOOD COUNT 9.1 10^3/uL (4.0-10.0)
[2023-11-27 06:02] LABS: CALCIUM LEVEL 9.5 MG/DL (8.3-10.6); CREATININE FOR GFR 1.52 MG/DL (0.70-1.30); GLOMERULAR FILTRATION RATE 48.1 (>42); POTASSIUM SERUM 4.2 MMOL/L (3.5-5.1)
[2023-11-27 08:00] VITALS: BP 103/57; TEMP 97.4; O2SAT 88
[2023-11-27 12:00] VITALS: BP 110/57; TEMP 97.1; O2SAT 94
[2023-11-27 16:00] VITALS: BP 110/57; TEMP 97.4; O2SAT 80
[2023-11-27 20:00] VITALS: BP 126/60; TEMP 98.4; O2SAT 93
[2023-11-27] MEDS: FUROSEMIDE 40MG/4ML VIAL IV ONE (20:50)
[2023-11-28] VITALS (17 sets, daily range): BP systolic 97–108; BP diastolic 51–60; TEMP 97.7–98.9; O2SAT 88–96
[2023-11-28 05:44] LABS: BASO % 0.6 % (0.0-1.0); EOS # 0.2 10^3/uL (0.0-0.5); EOS % 2.5 % (0.0-3.0); HEMATOCRIT 29.7 % (42.0-52.0); HEMOGLOBIN 9.3 g/dl (13.5-17.5); LYMPH # 1.7 10^3/uL (1.5-5.0); LYMPH % 23.3 % (24.0-44.0); MEAN CORPUSCULAR HEMOGLOBIN 31.5 pg (27.0-33.0); MEAN CORPUSCULAR HGB CONC 31.3 g/dl (32.0-36.5); MEAN CORPUSCULAR VOLUME 100.7 fl (80.0-96.0); MONO # 0.8 10^3/uL (0.0-0.8); MONO % 11.4 % (2.0-8.0); NEUTROPHILS # 4.3 10^3/uL (1.5-8.5); NEUTROPHILS % 59.4 % (36.0-66.0); PLATELET COUNT, AUTOMATED 359 10^3/uL (150-450); RED BLOOD COUNT 2.95 10^6/uL (4.30-6.10); WHITE BLOOD COUNT 7.2 10^3/uL (4.0-10.0)
[2023-11-28 06:08] LABS: CALCIUM LEVEL 9.5 MG/DL (8.3-10.6); CREATININE FOR GFR 1.6 MG/DL (0.70-1.30); GLOMERULAR FILTRATION RATE 45.3 (>42); POTASSIUM SERUM 4.1 MMOL/L (3.5-5.1)
[2023-11-29] VITALS (17 sets, daily range): BP systolic 95–124; BP diastolic 49–62; TEMP 97.1–98.9; O2SAT 91–99
[2023-11-29 05:01] LABS: BASO % 0.4 % (0.0-1.0); EOS # 0.2 10^3/uL (0.0-0.5); EOS % 2.7 % (0.0-3.0); HEMATOCRIT 29.9 % (42.0-52.0); HEMOGLOBIN 9.4 g/dl (13.5-17.5); LYMPH # 1.7 10^3/uL (1.5-5.0); LYMPH % 24.3 % (24.0-44.0); MEAN CORPUSCULAR HEMOGLOBIN 31.6 pg (27.0-33.0); MEAN CORPUSCULAR HGB CONC 31.4 g/dl (32.0-36.5); MEAN CORPUSCULAR VOLUME 100.7 fl (80.0-96.0); MONO % 13.7 % (2.0-8.0); NEUTROPHILS % 56.9 % (36.0-66.0); PLATELET COUNT, AUTOMATED 347 10^3/uL (150-450); RED BLOOD COUNT 2.97 10^6/uL (4.30-6.10)
[2023-11-29 05:24] LABS: CALCIUM LEVEL 9.7 MG/DL (8.3-10.6); CREATININE FOR GFR 1.61 MG/DL (0.70-1.30); POTASSIUM SERUM 4.1 MMOL/L (3.5-5.1)
[2023-11-30] VITALS: BP 118/57; TEMP 97.6; O2SAT 96
[2023-11-30 04:00] VITALS: BP 104/53; TEMP 97; O2SAT 94
[2023-11-30 05:10] LABS: BASO % 0.3 % (0.0-1.0); EOS # 0.2 10^3/uL (0.0-0.5); EOS % 2.5 % (0.0-3.0); HEMATOCRIT 31.9 % (42.0-52.0); HEMOGLOBIN 10.1 g/dl (13.5-17.5); LYMPH # 1.6 10^3/uL (1.5-5.0); LYMPH % 21.2 % (24.0-44.0); MEAN CORPUSCULAR HEMOGLOBIN 31.3 pg (27.0-33.0); MEAN CORPUSCULAR HGB CONC 31.7 g/dl (32.0-36.5); MEAN CORPUSCULAR VOLUME 98.8 fl (80.0-96.0); MONO # 1.2 10^3/uL (0.0-0.8); MONO % 15.4 % (2.0-8.0); NEUTROPHILS # 4.4 10^3/uL (1.5-8.5); NEUTROPHILS % 59.1 % (36.0-66.0); PLATELET COUNT, AUTOMATED 384 10^3/uL (150-450); RED BLOOD COUNT 3.23 10^6/uL (4.30-6.10); WHITE BLOOD COUNT 7.5 10^3/uL (4.0-10.0)
[2023-11-30 05:28] LABS: CALCIUM LEVEL 10.3 MG/DL (8.3-10.6); CREATININE FOR GFR 1.59 MG/DL (0.70-1.30); GLOMERULAR FILTRATION RATE 45.7 (>42); POTASSIUM SERUM 4.2 MMOL/L (3.5-5.1)
[2023-11-30] MEDS ORDERED: MOM 30ML SUSPENSION UDC PO PRN (07:50)
[2023-11-30 08:00] VITALS: BP 147/70; TEMP 97.1; O2SAT 99
[2023-11-30 11:52] VITALS: O2SAT 87
[2023-11-30 11:54] VITALS: O2SAT 92
[2023-11-30] MEDS ORDERED: ALB2.5NEB NEB ×2 (16:29→17:17)
== END 2023-11-30 18:00 | disposition home or self-care (01) | DRG 871 ==
LOC: M ED 06:24 → EDBD 06:24 → M ED 09:55 → M ED INP 14:40 → M ICU 21:06
PROVIDERS: ADMIT Internal Medicine Pulmonary Disease; ATTEND Internal Medicine
DX: A41.9 Sepsis, unspecified organism (principal); J96.01 Acute respiratory failure with hypoxia; J69.0 Pneumonitis due to inhalation of food and vomit; G93.41 Metabolic encephalopathy; N17.9 Acute kidney failure, unspecified; F72 Severe intellectual disabilities; I50.32 Chronic diastolic (congestive) heart failure; E87.20 Acidosis, unspecified; N18.2 Chronic kidney disease, stage 2 (mild); B97.10 Unspecified enterovirus as the cause of diseases classified elsewhere; R13.12 Dysphagia, oropharyngeal phase; Z93.1 Gastrostomy status; E66.9 Obesity, unspecified; Z68.34 Body mass index [BMI] 34.0-34.9, adult; G40.909 Epilepsy, unspecified, not intractable, without status epilepticus; F20.9 Schizophrenia, unspecified; Z88.8 Allergy status to other drugs, medicaments and biological substances; Z79.899 Other long term (current) drug therapy; R65.20 Severe sepsis without septic shock; Z99.81 Dependence on supplemental oxygen; K21.9 Gastro-esophageal reflux disease without esophagitis

== ENCOUNTER → 2023-12-08 | Outpatient (REF) | payer MEDICARE, MEDICAID ==
[~2023-12-08] MED LIST changes: +FURO10EL GT; +NEPR1LIQ2 GT; +VITA1200 GT
== END ==
LOC: M SFHCCLAY 10:52
PROVIDERS: ATTEND Nurse Practitioner Family
DX: R09.02 Hypoxemia (principal); R65.20 Severe sepsis without septic shock; N17.9 Acute kidney failure, unspecified

== ENCOUNTER → 2023-12-09 | Outpatient (CLI) | payer MEDICARE, MEDICAID ==
[2023-12-09 10:35] LABS: BASO % 0.6 % (0.0-1.0); EOS # 0.2 10^3/uL (0.0-0.5); EOS % 3.9 % (0.0-3.0); HEMATOCRIT 32.5 % (42.0-52.0); HEMOGLOBIN 10.5 g/dl (13.5-17.5); LYMPH # 1.7 10^3/uL (1.5-5.0); LYMPH % 35.8 % (24.0-44.0); MEAN CORPUSCULAR HEMOGLOBIN 31.7 pg (27.0-33.0); MEAN CORPUSCULAR HGB CONC 32.3 g/dl (32.0-36.5); MEAN CORPUSCULAR VOLUME 98.2 fl (80.0-96.0); MONO # 0.7 10^3/uL (0.0-0.8); MONO % 15.5 % (2.0-8.0); NEUTROPHILS # 1.9 10^3/uL (1.5-8.5); PLATELET COUNT, AUTOMATED 300 10^3/uL (150-450); RED BLOOD COUNT 3.31 10^6/uL (4.30-6.10); WHITE BLOOD COUNT 4.6 10^3/uL (4.0-10.0)
[2023-12-09 11:02] LABS: ALBUMIN 2.7 G/DL (3.2-5.2); ALKALINE PHOSPHATASE 92 U/L (46-116); ALT/SGPT 23 U/L (7.0-40); AST/SGOT 30 U/L (<34); BILIRUBIN,TOTAL 0.3 MG/DL (0.3-1.2); BLOOD UREA NITROGEN 24 MG/DL (9-23); CARBON DIOXIDE LEVEL 35 MMOL/L (20-31); CHLORIDE LEVEL 99 MMOL/L (98-107); CREATININE FOR GFR 1.16 MG/DL (0.70-1.30); GLOMERULAR FILTRATION RATE > 60.0 (>42); GLUCOSE, FASTING 67 MG/DL (74-106); MAGNESIUM LEVEL 2.1 MG/DL (1.8-2.4); POTASSIUM SERUM 5.1 MMOL/L (3.5-5.1); SODIUM LEVEL 134 MMOL/L (136-145); TOTAL PROTEIN 7.1 G/DL (5.7-8.2)
== END ==
LOC: M WUC 08:56
PROVIDERS: ATTEND Nurse Practitioner Family
DX: R09.02 Hypoxemia (principal); N17.9 Acute kidney failure, unspecified; R65.20 Severe sepsis without septic shock; A41.9 Sepsis, unspecified organism

== ENCOUNTER 2023-12-23 06:26 | Inpatient (IN) | payer MEDICARE, MEDICAID ==
[~2023-12-23] VITALS: Ht 154.9 cm; Wt 87.1 kg
[2023-12-23] VITALS (10 sets, daily range): BP systolic 108–126; BP diastolic 51–60; TEMP 97.1–99.6; O2SAT 91–100
[2023-12-23 07:06] LABS: VENOUS BASE EXCESS 4.1 (-2.0-2.0); VENOUS HCO3 32.3 MMOL/L (23.0-27.0); VENOUS O2 SATURATION 57.6 % (60.0-80.0); VENOUS PARTIAL PRESSURE CO2 68.1 mmHg (38.0-50.0); VENOUS PARTIAL PRESSURE O2 33.8 mmHg (30.0-50.0); VENOUS PH 7.294 UNITS (7.330-7.430); VENOUS STANDARD HCO3 27.3 MMOL/L; VENOUS TOTAL CO2 34.4 MMOL/L (24.0-28.0)
[2023-12-23 07:15] LABS: BASO % 0.2 % (0.0-1.0); EOS # 0.2 10^3/uL (0.0-0.5); EOS % 1.8 % (0.0-3.0); HEMOGLOBIN 10.2 g/dl (13.5-17.5); LYMPH % 9.7 % (24.0-44.0); MEAN CORPUSCULAR HEMOGLOBIN 31.6 pg (27.0-33.0); MEAN CORPUSCULAR HGB CONC 32.9 g/dl (32.0-36.5); MONO # 1.1 10^3/uL (0.0-0.8); MONO % 10.6 % (2.0-8.0); NEUTROPHILS # 7.8 10^3/uL (1.5-8.5); NEUTROPHILS % 76.8 % (36.0-66.0); PLATELET COUNT, AUTOMATED 124 10^3/uL (150-450); RED BLOOD COUNT 3.23 10^6/uL (4.30-6.10); WHITE BLOOD COUNT 10.1 10^3/uL (4.0-10.0)
[2023-12-23 07:44] LABS: ALBUMIN 2.8 G/DL (3.2-5.2); ALKALINE PHOSPHATASE 96 U/L (40-129); ALT/SGPT 24 U/L (7.0-40); AST/SGOT 73 U/L (<34); BILIRUBIN,DIRECT 0.1 MG/DL (<0.4); BILIRUBIN,TOTAL 0.4 MG/DL (0.3-1.2); BLOOD UREA NITROGEN 26 MG/DL (9-23); CALCIUM LEVEL 9.8 MG/DL (8.3-10.6); CARBON DIOXIDE LEVEL 31 MMOL/L (20-31); CHLORIDE LEVEL 93 MMOL/L (98-107); CREATININE FOR GFR 1.06 MG/DL (0.70-1.30); GLOMERULAR FILTRATION RATE > 60.0 (>42); GLUCOSE, FASTING 84 MG/DL (74-106); POTASSIUM SERUM 5.7 MMOL/L (3.5-5.1); SODIUM LEVEL 128 MMOL/L (136-145); TOTAL PROTEIN 7.6 G/DL (5.7-8.2)
[2023-12-23] MEDS ORDERED: ISOVUE-370 76% 100ML VIAL As Ordered ONE (08:14)
[2023-12-23] MEDS: ENOXAPARIN 40MG/0.4ML SYRINGE (J1650 PER 10MG) SC SCH (09:00)
[2023-12-23] MEDS: IPRATROPIUM 0.5MG/ALBUTEROL 2.5MG INH SOL UD 3ML (DUONEB) NEB ONE (09:11)
[2023-12-23] MEDS ORDERED: POTA20LI16 PO (09:39)
[2023-12-23] MEDS ORDERED: HOME MED LIST COMPLETE! XX SCH (09:40)
[2023-12-23] MEDS: methylPREDNISolone 125MG 2ML VIAL IV ONE (09:48)
[2023-12-23] MEDS: cefTRIAXone SOD 2 GM in DEXTROSE 5% (D5W) ADV/MINI-BAG 50 ML IV ONE (10:19)
[2023-12-23] MEDS: ACETAMINOPHEN *IV* 1,000 MG in IV 1 EA IV ONE ×2 (10:19→17:15)
[2023-12-23 10:58] LABS: VENOUS HCO3 27.2 MMOL/L (23.0-27.0); VENOUS O2 SATURATION 92.2 % (60.0-80.0); VENOUS PARTIAL PRESSURE CO2 45.2 mmHg (38.0-50.0); VENOUS PARTIAL PRESSURE O2 66.5 mmHg (30.0-50.0); VENOUS PH 7.398 UNITS (7.330-7.430); VENOUS STANDARD HCO3 26.2 MMOL/L; VENOUS TOTAL CO2 28.6 MMOL/L (24.0-28.0)
[2023-12-23 11:09] LABS: ABG BASE EXCESS 3.4 (-2.0-2.0); ABG HCO3 27.3 MMOL/L (22.0-26.0); ABG O2 SATURATION 93.9 % (95.0-99.0); ABG PARTIAL PRESSURE CO2 38.5 mmHg (35.0-45.0); ABG PARTIAL PRESSURE O2 67.5 mmHg (75.0-100.0); ABG STANDARD HCO3 27.5 MMOL/L. (22.0-26.0); ABG TOTAL CO2 28.4 MMOL/L (23.0-31.0); ABG pH (ARTERIAL) 7.468 UNITS (7.350-7.450)
[2023-12-23] MEDS: IBUPROFEN 100MG 5ML SUSP UDC DYE FREE PO ONE (11:44)
[2023-12-23] MEDS: ALBUTEROL SULFATE 2.5MG/0.5ML INH NEB SOLN NEB SCH (12:55)
[2023-12-23] MEDS: SODIUM CHLORIDE HYPERTONIC 3% 4ML NEB SOL INH SCH (12:55)
[2023-12-23] MEDS: LORazepam 0.5 MG TAB GT SCH (13:06)
[2023-12-23] MEDS: ACETAMINOPHEN 325MG/10.15ML UDC GT PRN (13:06)
[2023-12-23] MEDS: CitaloPRAM (CeleXA) 20 MG TAB GT SCH (13:07)
[2023-12-23] MEDS: FUROSEMIDE 40MG/4ML VIAL IV ONE (13:07)
[2023-12-23] MEDS: DOXYCYCLINE HYCLATE 100 MG in D5W MINI-BAG PLUS 100 ML IV ONE (13:08)
[2023-12-23 13:45] LABS: BLOOD UREA NITROGEN 28 MG/DL (9-23); CALCIUM LEVEL 9.8 MG/DL (8.3-10.6); CARBON DIOXIDE LEVEL 30 MMOL/L (20-31); CHLORIDE LEVEL 92 MMOL/L (98-107); CREATININE FOR GFR 1.19 MG/DL (0.70-1.30); GLOMERULAR FILTRATION RATE > 60.0 (>42); GLUCOSE, FASTING 94 MG/DL (74-106); POTASSIUM SERUM 5.5 MMOL/L (3.5-5.1); SODIUM LEVEL 126 MMOL/L (136-145)
[2023-12-23 13:57] LABS: PROCALCITONIN 0.49 ng/ml
[2023-12-23] MEDS: CALCIUM GLUCONATE 1,000 MG in D5W MINI-BAG PLUS 100 ML IV ONE (14:07)
[2023-12-23] MEDS: SOD POLYSTYRENE SULFONATE SUSP 15GM 60ML UD PO ONE (15:00)
[2023-12-23 15:11] LABS: OSMOLALITY SERUM 282 MOSM/KG (280-301)
[2023-12-23] MEDS: LEVALBUTEROL 1.25MG 0.5ML CONCENTRATE NEB INH SCH (16:28)
[2023-12-23] MEDS: CEFEPIME HCL 2 GM in DEXTROSE 5% (D5W) ADV/MINI-BAG 50 ML IV SCH (17:15)
[2023-12-23 17:50] LABS: CREATININE FOR GFR 1.31 MG/DL (0.70-1.30); GLOMERULAR FILTRATION RATE 57.1 (>42); POTASSIUM SERUM 4.7 MMOL/L (3.5-5.1)
[2023-12-23 18:05] LABS: SODIUM,RANDOM URINE 63 MMOL/L
[2023-12-23 18:09] LABS: OSMOLALITY URINE 363 MOSM/KG (50-1400)
[2023-12-23] MEDS: VALPROIC ACID 500MG/10ML SOL ORAL SYRINGE GT SCH (18:33)
[2023-12-23] MEDS: NS 1,000 ML IV SCH (18:33)
[2023-12-23] MEDS: BUDESONIDE 0.5 MG/2 ML INHALATION SUSPENSION NEB SCH (20:02)
[2023-12-23] MEDS: LACTOBACILLUS ACIDOPHILUS CAP (BACID) PEG SCH (20:08)
[2023-12-23] MEDS: DOXYCYCLINE HYCLATE 100 MG in D5W MINI-BAG PLUS 100 ML IV SCH (20:08)
[2023-12-23] MEDS: QUEtiapine FUMARATE 200 MG TAB GT SCH (20:09)
[2023-12-23] MEDS ORDERED: SENNA 8.6 MG TAB (SENOKOT) GT SCH (21:00)
[2023-12-24] VITALS (8 sets, daily range): BP systolic 103–142; BP diastolic 54–64; TEMP 96.7–97.6; O2SAT 91–100
[2023-12-24 05:05] LABS: BASO % 0.1 % (0.0-1.0); HEMATOCRIT 27.5 % (42.0-52.0); LYMPH % 5.3 % (24.0-44.0); MEAN CORPUSCULAR HEMOGLOBIN 32.5 pg (27.0-33.0); MEAN CORPUSCULAR HGB CONC 32.7 g/dl (32.0-36.5); MEAN CORPUSCULAR VOLUME 99.3 fl (80.0-96.0); MONO # 1.9 10^3/uL (0.0-0.8); MONO % 10.5 % (2.0-8.0); NEUTROPHILS # 15.2 10^3/uL (1.5-8.5); NEUTROPHILS % 83.4 % (36.0-66.0); PLATELET COUNT, AUTOMATED 113 10^3/uL (150-450); RED BLOOD COUNT 2.77 10^6/uL (4.30-6.10); WHITE BLOOD COUNT 18.2 10^3/uL (4.0-10.0)
[2023-12-24 05:35] LABS: CALCIUM LEVEL 10.2 MG/DL (8.3-10.6); CREATININE FOR GFR 1.42 MG/DL (0.70-1.30); POTASSIUM SERUM 4.6 MMOL/L (3.5-5.1)
[2023-12-24] MEDS ORDERED: MIRALAX *UNIT DOSE* 17GM PACKET GT SCH (09:00)
[2023-12-24] MEDS: PANTOPRAZOLE 40MG VIAL IV SCH (09:09)
[2023-12-24] MEDS: QUEtiapine FUMARATE 100 MG TAB GT SCH (09:10)
[2023-12-24 17:56] LABS: CALCIUM LEVEL 9.6 MG/DL (8.3-10.6); CREATININE FOR GFR 1.28 MG/DL (0.70-1.30); GLOMERULAR FILTRATION RATE 58.6 (>42); POTASSIUM SERUM 4.4 MMOL/L (3.5-5.1)
[2023-12-25 04:19] VITALS: BP 120/61; TEMP 97.1; O2SAT 95
[2023-12-25 07:33] LABS: BASO % 0.3 % (0.0-1.0); EOS # 0.2 10^3/uL (0.0-0.5); EOS % 1.8 % (0.0-3.0); HEMATOCRIT 26.7 % (42.0-52.0); HEMOGLOBIN 8.6 g/dl (13.5-17.5); LYMPH # 1.2 10^3/uL (1.5-5.0); LYMPH % 10.4 % (24.0-44.0); MEAN CORPUSCULAR HEMOGLOBIN 32.5 pg (27.0-33.0); MEAN CORPUSCULAR HGB CONC 32.2 g/dl (32.0-36.5); MEAN CORPUSCULAR VOLUME 100.8 fl (80.0-96.0); MONO # 1.1 10^3/uL (0.0-0.8); MONO % 9.5 % (2.0-8.0); NEUTROPHILS # 8.6 10^3/uL (1.5-8.5); NEUTROPHILS % 77.1 % (36.0-66.0); PLATELET COUNT, AUTOMATED 106 10^3/uL (150-450); RED BLOOD COUNT 2.65 10^6/uL (4.30-6.10); WHITE BLOOD COUNT 11.1 10^3/uL (4.0-10.0)
[2023-12-25 07:50] VITALS: BP 111/60; TEMP 97; O2SAT 99
[2023-12-25 08:01] LABS: BLOOD UREA NITROGEN 36 MG/DL (9-23); CALCIUM LEVEL 9.4 MG/DL (8.3-10.6); CARBON DIOXIDE LEVEL 30 MMOL/L (20-31); CHLORIDE LEVEL 101 MMOL/L (98-107); GLOMERULAR FILTRATION RATE > 60.0 (>42); GLUCOSE, FASTING 113 MG/DL (74-106); POTASSIUM SERUM 4.3 MMOL/L (3.5-5.1); SODIUM LEVEL 134 MMOL/L (136-145)
[2023-12-25 20:02] VITALS: BP 134/60; TEMP 97.5; O2SAT 94
[2023-12-26 03:44] VITALS: BP 110/62; TEMP 98.7; O2SAT 95
[2023-12-26 05:23] LABS: BASO % 0.4 % (0.0-1.0); EOS # 0.5 10^3/uL (0.0-0.5); EOS % 6.7 % (0.0-3.0); HEMATOCRIT 24.7 % (42.0-52.0); HEMOGLOBIN 8.1 g/dl (13.5-17.5); LYMPH # 1.1 10^3/uL (1.5-5.0); LYMPH % 16.6 % (24.0-44.0); MEAN CORPUSCULAR HEMOGLOBIN 32.7 pg (27.0-33.0); MEAN CORPUSCULAR HGB CONC 32.8 g/dl (32.0-36.5); MEAN CORPUSCULAR VOLUME 99.6 fl (80.0-96.0); MONO # 0.9 10^3/uL (0.0-0.8); MONO % 13.7 % (2.0-8.0); NEUTROPHILS # 4.1 10^3/uL (1.5-8.5); NEUTROPHILS % 60.7 % (36.0-66.0); PLATELET COUNT, AUTOMATED 113 10^3/uL (150-450); RED BLOOD COUNT 2.48 10^6/uL (4.30-6.10); WHITE BLOOD COUNT 6.7 10^3/uL (4.0-10.0)
[2023-12-26 05:51] LABS: BLOOD UREA NITROGEN 34 MG/DL (9-23); CALCIUM LEVEL 9.2 MG/DL (8.3-10.6); CARBON DIOXIDE LEVEL 28 MMOL/L (20-31); CHLORIDE LEVEL 102 MMOL/L (98-107); CREATININE FOR GFR 0.98 MG/DL (0.70-1.30); GLOMERULAR FILTRATION RATE > 60.0 (>42); GLUCOSE, FASTING 79 MG/DL (74-106); POTASSIUM SERUM 4.5 MMOL/L (3.5-5.1); SODIUM LEVEL 134 MMOL/L (136-145)
[2023-12-26 08:06] VITALS: BP 118/59; TEMP 98.5; O2SAT 99
[2023-12-26] MEDS ORDERED: LEVO1TAB40 GT (10:16)
== END 2023-12-26 14:00 | disposition home or self-care (01) | DRG 189 ==
LOC: M ED 06:26 → EDBD 06:26 → M ED INP 12:17 → M PCU 16:10
PROVIDERS: ADMIT Internal Medicine; ATTEND Internal Medicine
DX: J96.21 Acute and chronic respiratory failure with hypoxia (principal); J15.9 Unspecified bacterial pneumonia; I50.32 Chronic diastolic (congestive) heart failure; F72 Severe intellectual disabilities; N17.9 Acute kidney failure, unspecified; E87.20 Acidosis, unspecified; E87.1 Hypo-osmolality and hyponatremia; N18.30 Chronic kidney disease, stage 3 unspecified; G40.909 Epilepsy, unspecified, not intractable, without status epilepticus; F20.9 Schizophrenia, unspecified; Z93.1 Gastrostomy status; R60.0 Localized edema; K21.9 Gastro-esophageal reflux disease without esophagitis; R13.12 Dysphagia, oropharyngeal phase; E87.5 Hyperkalemia; K59.00 Constipation, unspecified; F41.9 Anxiety disorder, unspecified; F32.A Depression, unspecified; Z88.0 Allergy status to penicillin; Z88.8 Allergy status to other drugs, medicaments and biological substances; Z79.899 Other long term (current) drug therapy; E66.9 Obesity, unspecified; Z68.34 Body mass index [BMI] 34.0-34.9, adult

== ENCOUNTER 2023-12-28 16:45 | Inpatient (IN) | payer MEDICARE, MEDICAID ==
[~2023-12-28] VITALS: Ht 157.5 cm; Wt 81.4 kg
[2023-12-28] VITALS (11 sets, daily range): BP systolic 132; BP diastolic 65; TEMP 98.1; O2SAT 92–97
[~2023-12-28 16:45] MED LIST changes: +POTA20LI16 PO
[2023-12-28 17:24] LABS: ABG BASE EXCESS 2.7 (-2.0-2.0); ABG HCO3 27.9 MMOL/L (22.0-26.0); ABG O2 SATURATION 91.2 % (95.0-99.0); ABG PARTIAL PRESSURE CO2 46.1 mmHg (35.0-45.0); ABG PARTIAL PRESSURE O2 64.4 mmHg (75.0-100.0); ABG STANDARD HCO3 26.7 MMOL/L. (22.0-26.0); ABG TOTAL CO2 29.3 MMOL/L (23.0-31.0)
[2023-12-28] MEDS: FUROSEMIDE 40MG/4ML VIAL IV ONE (17:25)
[2023-12-28 17:38] LABS: HEMATOCRIT 28.2 % (42.0-52.0); HEMOGLOBIN 9.1 g/dl (13.5-17.5); MEAN CORPUSCULAR HEMOGLOBIN 31.8 pg (27.0-33.0); MEAN CORPUSCULAR HGB CONC 32.3 g/dl (32.0-36.5); MEAN CORPUSCULAR VOLUME 98.6 fl (80.0-96.0); PLATELET COUNT, AUTOMATED 172 10^3/uL (150-450); RED BLOOD COUNT 2.86 10^6/uL (4.30-6.10); WHITE BLOOD COUNT 7.1 10^3/uL (4.0-10.0)
[2023-12-28 18:06] LABS: ALBUMIN 2.6 G/DL (3.2-5.2); ALKALINE PHOSPHATASE 97 U/L (40-129); ALT/SGPT 21 U/L (7.0-40); AST/SGOT 26 U/L (<34); BILIRUBIN,DIRECT < 0.1 MG/DL (<0.4); BILIRUBIN,TOTAL 0.2 MG/DL (0.3-1.2); BLOOD UREA NITROGEN 32 MG/DL (9-23); CALCIUM LEVEL 10.1 MG/DL (8.3-10.6); CARBON DIOXIDE LEVEL 30 MMOL/L (20-31); CHLORIDE LEVEL 99 MMOL/L (98-107); CREATININE FOR GFR 0.95 MG/DL (0.70-1.30); GLOMERULAR FILTRATION RATE > 60.0 (>42); GLUCOSE, FASTING 72 MG/DL (74-106); POTASSIUM SERUM 5.1 MMOL/L (3.5-5.1); SODIUM LEVEL 134 MMOL/L (136-145); TOTAL PROTEIN 7.2 G/DL (5.7-8.2)
[2023-12-28 18:08] LABS: THYROID STIMULATING HORMONE 8.695 uIU/ML (0.55-4.78); THYROXINE (T4) 5.9 UG/DL (4.5-10.9)
[2023-12-28 18:13] LABS: PROCALCITONIN 0.41 ng/ml
[2023-12-28 18:22] LABS: ATYPICAL LYMPH 1 % (0-5); BASOPHILS 1 % (0-1); EOSINOPHILS 8 % (0-3); LYMPHOCYTES 29 % (16-44); METAMYELOCYTES 3 % (0-0); MONOCYTES 10 % (0-5); MYELOCYTES 2 % (0-0); NEUTROPHILS 43 % (28-66); PLATELET ESTIMATE NORMAL (NORMAL)
[2023-12-28] MEDS: cefTRIAXone SOD 2 GM in DEXTROSE 5% (D5W) ADV/MINI-BAG 50 ML IV ONE (19:17)
[2023-12-28] MEDS: LevoFLOXacin IV 750 MG in IV 1 EA IV ONE (20:23)
[2023-12-28] MEDS ORDERED: LEVO1TAB40 GT (20:28)
[2023-12-28] MEDS ORDERED: HOME MED LIST COMPLETE! XX SCH (20:30)
[2023-12-28] MEDS ORDERED: MOM 30ML SUSPENSION UDC PO PRN (20:30)
[2023-12-28] MEDS ORDERED: ACETAMINOPHEN 325 MG TAB PO PRN (20:30)
[2023-12-28] MEDS ORDERED: BALMEX CREAM 60GM TOP PRN (20:30)
[2023-12-28] MEDS: DOCUSATE SODIUM 100MG CAPSULE PO SCH (21:00)
[2023-12-28] MEDS ORDERED: VALPROIC ACID 250MG/5ML SOL ORAL SYRINGE GT SCH (21:00)
[2023-12-28] MEDS: SENNA 8.6 MG TAB (SENOKOT) GT SCH (21:00)
[2023-12-28] MEDS ORDERED: VALPROIC ACID 500MG/10ML SOL ORAL SYRINGE GT SCH (21:08)
[2023-12-28 21:28] LABS: MAGNESIUM LEVEL 1.7 MG/DL (1.8-2.4)
[2023-12-28 21:31] LABS: INR 1.01; PROTHROMBIN TIME 13.6 SECONDS (12.5-14.5)
[2023-12-28] MEDS: ALBUTEROL SULFATE 2.5MG/0.5ML INH NEB SOLN NEB SCH (23:00)
[2023-12-29] VITALS (35 sets, daily range): BP systolic 96–125; BP diastolic 51–61; TEMP 97.2–100.3; O2SAT 89–98
[2023-12-29] MEDS: LACTOBACILLUS ACIDOPHILUS CAP (BACID) PEG SCH (00:19)
[2023-12-29] MEDS: QUEtiapine FUMARATE 200 MG TAB GT SCH (00:19)
[2023-12-29] MEDS: metroNIDAZOLE 500 MG in IV 1 EA IV SCH (00:20)
[2023-12-29] MEDS: MAG SULF 1GM/100ML (MAG RUN) 1 GM in IV 1 EA IV SCH (00:20)
[2023-12-29] MEDS: LORazepam 0.5 MG TAB GT SCH (00:28)
[2023-12-29] MEDS: VALPROIC ACID 500MG/10ML SOL ORAL SYRINGE GT SCH (01:05)
[2023-12-29] MEDS: CEFEPIME HCL 2 GM in DEXTROSE 5% (D5W) ADV/MINI-BAG 50 ML IV SCH (05:26)
[2023-12-29 07:04] LABS: BASO % 0.3 % (0.0-1.0); EOS # 0.3 10^3/uL (0.0-0.5); EOS % 3.2 % (0.0-3.0); HEMATOCRIT 25.7 % (42.0-52.0); HEMOGLOBIN 8.1 g/dl (13.5-17.5); LYMPH # 1.3 10^3/uL (1.5-5.0); LYMPH % 14.6 % (24.0-44.0); MEAN CORPUSCULAR HEMOGLOBIN 31.4 pg (27.0-33.0); MEAN CORPUSCULAR HGB CONC 31.5 g/dl (32.0-36.5); MEAN CORPUSCULAR VOLUME 99.6 fl (80.0-96.0); MONO % 11.4 % (2.0-8.0); NEUTROPHILS # 5.9 10^3/uL (1.5-8.5); NEUTROPHILS % 66.1 % (36.0-66.0); PLATELET COUNT, AUTOMATED 163 10^3/uL (150-450); RED BLOOD COUNT 2.58 10^6/uL (4.30-6.10)
[2023-12-29 07:25] LABS: BLOOD UREA NITROGEN 31 MG/DL (9-23); CALCIUM LEVEL 9.6 MG/DL (8.3-10.6); CARBON DIOXIDE LEVEL 34 MMOL/L (20-31); CHLORIDE LEVEL 98 MMOL/L (98-107); CREATININE FOR GFR 1.17 MG/DL (0.70-1.30); GLOMERULAR FILTRATION RATE > 60.0 (>42); GLUCOSE, FASTING 84 MG/DL (74-106); POTASSIUM SERUM 4.3 MMOL/L (3.5-5.1); SODIUM LEVEL 132 MMOL/L (136-145)
[2023-12-29] MEDS: MIRALAX *UNIT DOSE* 17GM PACKET GT SCH (08:44)
[2023-12-29] MEDS: FUROSEMIDE 40MG/4ML VIAL IV SCH (08:57)
[2023-12-29] MEDS: VITAMIN D (CHOLECALCIFEROL) 400 INTERNATIONAL UNITS TAB GT SCH (09:08)
[2023-12-29] MEDS: ENOXAPARIN 40MG/0.4ML SYRINGE (J1650 PER 10MG) SC SCH (09:08)
[2023-12-29] MEDS: QUEtiapine FUMARATE 100 MG TAB GT SCH (09:08)
[2023-12-29] MEDS: SCOPOLAMINE 1MG TRANSDERMAL PATCH TOP SCH (09:09)
[2023-12-29] MEDS ORDERED: ONDANSETRON 4MG 2ML VIAL IV PRN (09:40)
[2023-12-29] MEDS ORDERED: guaiFENesin DM LIQ 10ML UD PEG PRN (09:40)
[2023-12-29] MEDS: CitaloPRAM (CeleXA) 20 MG TAB GT SCH (12:22)
[2023-12-30] VITALS (30 sets, daily range): BP systolic 105–122; BP diastolic 55–67; TEMP 97.1–97.7; O2SAT 72–100
[2023-12-30 06:39] LABS: HEMATOCRIT 27.6 % (42.0-52.0); HEMOGLOBIN 8.9 g/dl (13.5-17.5); MEAN CORPUSCULAR HEMOGLOBIN 32.1 pg (27.0-33.0); MEAN CORPUSCULAR HGB CONC 32.2 g/dl (32.0-36.5); MEAN CORPUSCULAR VOLUME 99.6 fl (80.0-96.0); PLATELET COUNT, AUTOMATED 191 10^3/uL (150-450); RED BLOOD COUNT 2.77 10^6/uL (4.30-6.10)
[2023-12-30 07:17] LABS: ATYPICAL LYMPH 4 % (0-5); EOSINOPHILS 3 % (0-3); LYMPHOCYTES 21 % (16-44); MONOCYTES 9 % (0-5); NEUTROPHILS 57 % (28-66)
[2023-12-30 07:19] LABS: PLATELET ESTIMATE NORMAL (NORMAL)
[2023-12-30 07:21] LABS: HYPOCHROMASIA 2+; STOMATOCYTES 1+
[2023-12-30 07:22] LABS: ANISOCYTOSIS 2+
[2023-12-30] MEDS: metroNIDAZOLE (FLAGYL) 500MG TABLET PEG SCH (16:20)
[2023-12-30] MEDS: CEFDINIR 300 MG CAP (OMNICEF) PO SCH (21:55)
[2023-12-31] VITALS (9 sets, daily range): BP systolic 108–124; BP diastolic 58–66; TEMP 97.5–97.6; O2SAT 95–97
[2023-12-31 05:21] LABS: BASO % 0.5 % (0.0-1.0); EOS # 0.2 10^3/uL (0.0-0.5); EOS % 2.7 % (0.0-3.0); HEMATOCRIT 26.6 % (42.0-52.0); HEMOGLOBIN 8.5 g/dl (13.5-17.5); LYMPH # 1.5 10^3/uL (1.5-5.0); MONO % 17.1 % (2.0-8.0); NEUTROPHILS # 3.1 10^3/uL (1.5-8.5); NEUTROPHILS % 51.6 % (36.0-66.0); PLATELET COUNT, AUTOMATED 217 10^3/uL (150-450); RED BLOOD COUNT 2.66 10^6/uL (4.30-6.10)
[2023-12-31] MEDS: MIDODRINE 5 MG TAB PO ONE (05:47)
[2023-12-31] MEDS ORDERED: CEFD300CAP PO (07:31)
[2023-12-31] MEDS ORDERED: METR-265 PEG (07:31)
[2023-12-31] MEDS ORDERED: FURO20TA2 PO (07:31)
[2023-12-31] MEDS: FUROSEMIDE 20 MG TAB PEG SCH (09:00)
[2023-12-31] MEDS ORDERED: FUROSEMIDE 40 MG TAB PEG SCH (09:00)
[2023-12-31] MEDS ORDERED: LASI20TA3 PEG (13:39)
[2023-12-31] MEDS ORDERED: CEFD1CAP9 PEG (13:39)
== END 2023-12-31 11:32 | disposition home or self-care (01) | DRG 189 ==
LOC: EDBD 16:45 → M ED 16:45 → M ED INP 20:27 → M PCU 23:50
PROVIDERS: ADMIT Student in an Organized Health Care Education/Training Program; ATTEND Student in an Organized Health Care Education/Training Program
PROC: B246ZZZ Ultrasonography of Right and Left Heart (ICD-10-PCS; principal; 2023-12-29)
DX: J96.01 Acute respiratory failure with hypoxia (principal); J69.0 Pneumonitis due to inhalation of food and vomit; I50.33 Acute on chronic diastolic (congestive) heart failure; G93.41 Metabolic encephalopathy; J12.9 Viral pneumonia, unspecified; F72 Severe intellectual disabilities; G40.909 Epilepsy, unspecified, not intractable, without status epilepticus; B34.8 Other viral infections of unspecified site; F20.9 Schizophrenia, unspecified; R13.12 Dysphagia, oropharyngeal phase; N18.30 Chronic kidney disease, stage 3 unspecified; R32 Unspecified urinary incontinence; R15.9 Full incontinence of feces; K21.9 Gastro-esophageal reflux disease without esophagitis; Z79.899 Other long term (current) drug therapy; Z88.1 Allergy status to other antibiotic agents; Z88.5 Allergy status to narcotic agent

== ENCOUNTER → 2024-01-06 | Outpatient (REF) | payer MEDICARE, MEDICAID ==
[~2024-01-06] MED LIST changes: +CEFD1CAP9 PEG; +CEFD300CAP PO; +FURO20TA2 PO; +LASI20TA3 PEG; +NYST1POW3 TOP; -NYST1POW9 TOP; -VALP250S GT; -VALP250S PO; +VALP250S26 GT; +VALP250S26 PO
[2024-01-06 15:01] LABS: ALBUMIN 2.7 G/DL (3.2-5.2); ALKALINE PHOSPHATASE 79 U/L (40-129); ALT/SGPT 14 U/L (7.0-40); AST/SGOT 18 U/L (<34); BILIRUBIN,TOTAL 0.2 MG/DL (0.3-1.2); BLOOD UREA NITROGEN 29 MG/DL (9-23); CALCIUM LEVEL 9.8 MG/DL (8.3-10.6); CARBON DIOXIDE LEVEL 37 MMOL/L (20-31); CHLORIDE LEVEL 97 MMOL/L (98-107); CREATININE FOR GFR 0.95 MG/DL (0.70-1.30); GLOMERULAR FILTRATION RATE > 60.0 (>42); GLUCOSE, FASTING 107 MG/DL (74-106); MAGNESIUM LEVEL 1.7 MG/DL (1.8-2.4); POTASSIUM SERUM 3.4 MMOL/L (3.5-5.1); SODIUM LEVEL 138 MMOL/L (136-145)
== END ==
LOC: M SFHCCLAY 10:33
PROVIDERS: ATTEND Physician Assistant
DX: J96.21 Acute and chronic respiratory failure with hypoxia (principal); J69.0 Pneumonitis due to inhalation of food and vomit; B34.8 Other viral infections of unspecified site; I50.9 Heart failure, unspecified; R60.0 Localized edema

== ENCOUNTER → 2024-01-06 | Outpatient (CLI) | payer MEDICARE, MEDICAID | LOC: M CLY 11:11 | PROVIDERS: ATTEND Physician Assistant | DX: J69.0 Pneumonitis due to inhalation of food and vomit (principal); I51.7 Cardiomegaly; R91.8 Other nonspecific abnormal finding of lung field ==

== ENCOUNTER → 2024-01-20 | Outpatient (CLI) | payer MEDICARE, MEDICAID ==
[2024-01-20 12:47] LABS: ALKALINE PHOSPHATASE 87 U/L (40-129); ALT/SGPT 12 U/L (7.0-40); AST/SGOT 16 U/L (<34); BILIRUBIN,TOTAL 0.2 MG/DL (0.3-1.2); BLOOD UREA NITROGEN 29 MG/DL (9-23); CARBON DIOXIDE LEVEL 35 MMOL/L (20-31); CHLORIDE LEVEL 94 MMOL/L (98-107); CREATININE FOR GFR 1.18 MG/DL (0.70-1.30); GLOMERULAR FILTRATION RATE > 60.0 (>42); GLUCOSE, FASTING 113 MG/DL (74-106); MAGNESIUM LEVEL 2.1 MG/DL (1.8-2.4); SODIUM LEVEL 136 MMOL/L (136-145); TOTAL PROTEIN 7.6 G/DL (5.7-8.2)
== END ==
LOC: M WUC 10:06
PROVIDERS: ATTEND Physician Assistant
DX: E83.42 Hypomagnesemia (principal)

== ENCOUNTER → 2024-01-23 | Outpatient (CLI) | payer MEDICARE, MEDICAID | LOC: M RAD 10:29 | PROVIDERS: ATTEND Nurse Practitioner Family | DX: N32.89 Other specified disorders of bladder (principal) ==

== ENCOUNTER → 2024-01-24 | Outpatient (CLI) | payer MEDICARE, MEDICAID | LOC: M PLAIMG 01-05 10:36 → M RAD 12:49 | PROVIDERS: ATTEND Internal Medicine Pulmonary Disease | DX: C78.01 Secondary malignant neoplasm of right lung (principal); C78.02 Secondary malignant neoplasm of left lung; R91.8 Other nonspecific abnormal finding of lung field ==

== ENCOUNTER 2024-02-16 10:20 | Inpatient (IN) | payer MEDICARE, MEDICAID ==
[~2024-02-16] VITALS: Ht 157.5 cm; Wt 82.3 kg
[~2024-02-16 10:20] MED LIST changes: -LORA2TA GT; +LORA2TAB15 GT
[2024-02-16] MEDS: dexAMETHasone 20MG/5ML VIAL IV ONE (11:07)
[2024-02-16] MEDS: ACETAMINOPHEN *IV* 1,000 MG in IV 1 EA IV ONE (11:07)
[2024-02-16 11:13] LABS: BASO % 0.2 % (0.0-1.0); EOS % 0.3 % (0.0-3.0); HEMATOCRIT 34.9 % (42.0-52.0); HEMOGLOBIN 11.3 g/dl (13.5-17.5); LYMPH # 0.8 10^3/uL (1.5-5.0); LYMPH % 5.9 % (24.0-44.0); MEAN CORPUSCULAR HEMOGLOBIN 32.1 pg (27.0-33.0); MEAN CORPUSCULAR HGB CONC 32.4 g/dl (32.0-36.5); MEAN CORPUSCULAR VOLUME 99.1 fl (80.0-96.0); MONO # 1.2 10^3/uL (0.0-0.8); MONO % 9.5 % (2.0-8.0); NEUTROPHILS # 10.8 10^3/uL (1.5-8.5); NEUTROPHILS % 83.7 % (36.0-66.0); PLATELET COUNT, AUTOMATED 193 10^3/uL (150-450); RED BLOOD COUNT 3.52 10^6/uL (4.30-6.10); WHITE BLOOD COUNT 12.9 10^3/uL (4.0-10.0)
[2024-02-16] MEDS ORDERED: FURO10EL GT (11:24)
[2024-02-16] MEDS ORDERED: POTA20LI16 GT (11:24)
[2024-02-16] MEDS ORDERED: QUET100T2 GT (11:24)
[2024-02-16] MEDS: IPRATROPIUM 0.5MG/ALBUTEROL 2.5MG INH SOL UD 3ML (DUONEB) NEB PRN (11:27)
[2024-02-16] MEDS ORDERED: [UNRECOGNIZED DRUG - REMARK] (11:28)
[2024-02-16] MEDS ORDERED: HOME MED LIST COMPLETE! XX SCH (11:30)
[2024-02-16 11:45] LABS: ALBUMIN 3.1 G/DL (3.2-5.2); ALKALINE PHOSPHATASE 94 U/L (40-129); ALT/SGPT 22 U/L (7.0-40); AST/SGOT 40 U/L (<34); BILIRUBIN,DIRECT < 0.1 MG/DL (<0.4); BILIRUBIN,TOTAL 0.3 MG/DL (0.3-1.2); BLOOD UREA NITROGEN 41 MG/DL (9-23); CALCIUM LEVEL 10.2 MG/DL (8.3-10.6); CARBON DIOXIDE LEVEL 34 MMOL/L (20-31); CHLORIDE LEVEL 94 MMOL/L (98-107); CREATININE FOR GFR 1.38 MG/DL (0.70-1.30); GLOMERULAR FILTRATION RATE 53.8 (>42); GLUCOSE, FASTING 144 MG/DL (74-106); POTASSIUM SERUM 4.6 MMOL/L (3.5-5.1); SODIUM LEVEL 138 MMOL/L (136-145); TOTAL PROTEIN 8.3 G/DL (5.7-8.2)
[2024-02-16 11:51] LABS: ABG BASE EXCESS 7.9 (-2.0-2.0); ABG HCO3 32.3 MMOL/L (22.0-26.0); ABG O2 SATURATION 96.5 % (95.0-99.0); ABG PARTIAL PRESSURE CO2 44.4 mmHg (35.0-45.0); ABG PARTIAL PRESSURE O2 85.5 mmHg (75.0-100.0); ABG STANDARD HCO3 31.7 MMOL/L. (22.0-26.0); ABG TOTAL CO2 33.7 MMOL/L (23.0-31.0)
[2024-02-16 11:57] LABS: PROCALCITONIN 0.16 ng/ml
[2024-02-16] MEDS: NS 0.9% IV STA (12:03)
[2024-02-16] MEDS: CEFEPIME HCL 2 GM in DEXTROSE 5% (D5W) ADV/MINI-BAG 50 ML IV ONE (12:03)
[2024-02-16] MEDS: [UNRECOGNIZED DRUG - OTHER] IV STA (12:03)
[2024-02-16] MEDS ORDERED: BALMEX CREAM 60GM TOP PRN (16:20)
[2024-02-16] MEDS ORDERED: ALBUTEROL SULFATE 2.5MG/0.5ML INH NEB SOLN NEB PRN (16:20)
[2024-02-16] MEDS ORDERED: ACETAMINOPHEN 325 MG TAB GT PRN (16:20)
[2024-02-16] MEDS: LORazepam 0.5 MG TAB GT SCH (16:58)
[2024-02-16] MEDS ORDERED: FUROSEMIDE 200 MG/20 ML ORAL SOL 60ML BTL GT SCH (17:00)
[2024-02-16] MEDS: LR 1,000 ML IV ONE (18:02)
[2024-02-16] MEDS: FUROSEMIDE 40 MG TAB GT SCH (18:26)
[2024-02-16] MEDS ORDERED: VALPROIC ACID 250MG/5ML SOL ORAL SYRINGE GT SCH (19:00)
[2024-02-16] MEDS ORDERED: VALPROIC ACID 500MG/10ML SOL ORAL SYRINGE GT SCH (20:12)
[2024-02-16] MEDS: VALPROIC ACID 500MG/10ML SOL ORAL SYRINGE GT SCH (21:01)
[2024-02-16] MEDS: SENNA SYRUP 5ML UDC GT SCH (21:01)
[2024-02-16] MEDS: QUEtiapine FUMARATE 200 MG TAB GT SCH (21:02)
[2024-02-16 22:30] VITALS: BP 130/75; TEMP 97.5; O2SAT 97
[2024-02-16 22:45] VITALS: O2SAT 94
[2024-02-17 04:00] VITALS: BP 143/83; TEMP 97.9; O2SAT 96
[2024-02-17 06:23] LABS: HEMATOCRIT 29.6 % (42.0-52.0); HEMOGLOBIN 9.6 g/dl (13.5-17.5); MEAN CORPUSCULAR HEMOGLOBIN 32.3 pg (27.0-33.0); MEAN CORPUSCULAR HGB CONC 32.4 g/dl (32.0-36.5); MEAN CORPUSCULAR VOLUME 99.7 fl (80.0-96.0); PLATELET COUNT, AUTOMATED 166 10^3/uL (150-450); RED BLOOD COUNT 2.97 10^6/uL (4.30-6.10); WHITE BLOOD COUNT 16.9 10^3/uL (4.0-10.0)
[2024-02-17 06:52] LABS: PROCALCITONIN 0.39 ng/ml
[2024-02-17 06:56] LABS: ALBUMIN 2.6 G/DL (3.2-5.2); ALKALINE PHOSPHATASE 64 U/L (40-129); ALT/SGPT 16 U/L (7.0-40); AST/SGOT 13 U/L (<34); BILIRUBIN,TOTAL 0.3 MG/DL (0.3-1.2); BLOOD UREA NITROGEN 37 MG/DL (9-23); CALCIUM LEVEL 9.9 MG/DL (8.3-10.6); CARBON DIOXIDE LEVEL 32 MMOL/L (20-31); CHLORIDE LEVEL 100 MMOL/L (98-107); CREATININE FOR GFR 1.22 MG/DL (0.70-1.30); GLOMERULAR FILTRATION RATE > 60.0 (>42); GLUCOSE, FASTING 123 MG/DL (74-106); POTASSIUM SERUM 4.5 MMOL/L (3.5-5.1); SODIUM LEVEL 140 MMOL/L (136-145); TOTAL PROTEIN 6.9 G/DL (5.7-8.2)
[2024-02-17] MEDS: MIRALAX *UNIT DOSE* 17GM PACKET GT SCH (09:47)
[2024-02-17] MEDS: POTASSIUM CHLORIDE 10% LIQ 20MEQ/15ML UDC GT SCH (09:47)
[2024-02-17] MEDS: QUEtiapine FUMARATE 100 MG TAB GT SCH (09:47)
[2024-02-17] MEDS: ENOXAPARIN 30MG/0.3ML SYRINGE (J1650 PER 10MG) SC SCH (09:47)
[2024-02-17] MEDS: OMEPRAZOLE/SODIUM BICARB 20-840MG 10ML ORAL SYRINGE NG SCH (11:54)
[2024-02-17] MEDS: CitaloPRAM (CeleXA) 20 MG TAB GT SCH (11:56)
[2024-02-17 12:00] VITALS: BP 126/81; TEMP 97.5; O2SAT 91
[2024-02-17] MEDS: MOXIFLOXACIN 400 MG TAB PO SCH (15:27)
[2024-02-17] MEDS: LR 1,000 ML IV ONE (15:27)
[2024-02-17 20:26] VITALS: BP 129/89; TEMP 97.7; O2SAT 97
[2024-02-18 06:52] VITALS: BP 164/86; TEMP 97.9; O2SAT 97
[2024-02-18 08:44] LABS: HEMATOCRIT 31.1 % (42.0-52.0); HEMOGLOBIN 10.1 g/dl (13.5-17.5); MEAN CORPUSCULAR HEMOGLOBIN 32.7 pg (27.0-33.0); MEAN CORPUSCULAR HGB CONC 32.5 g/dl (32.0-36.5); MEAN CORPUSCULAR VOLUME 100.6 fl (80.0-96.0); PLATELET COUNT, AUTOMATED 151 10^3/uL (150-450); RED BLOOD COUNT 3.09 10^6/uL (4.30-6.10); WHITE BLOOD COUNT 9.6 10^3/uL (4.0-10.0)
[2024-02-18 08:45] VITALS: BP 141/73
[2024-02-18 09:08] LABS: BLOOD UREA NITROGEN 37 MG/DL (9-23); CALCIUM LEVEL 9.3 MG/DL (8.3-10.6); CARBON DIOXIDE LEVEL 32 MMOL/L (20-31); CHLORIDE LEVEL 98 MMOL/L (98-107); CREATININE FOR GFR 1.18 MG/DL (0.70-1.30); GLOMERULAR FILTRATION RATE > 60.0 (>42); GLUCOSE, FASTING 115 MG/DL (74-106); POTASSIUM SERUM 3.7 MMOL/L (3.5-5.1); SODIUM LEVEL 137 MMOL/L (136-145)
[2024-02-18 12:12] VITALS: BP 145/76; TEMP 97; O2SAT 96
[2024-02-18 16:12] VITALS: BP 130/65
[2024-02-18 19:53] VITALS: BP 125/69; TEMP 97.7; O2SAT 95
[2024-02-19 03:55] VITALS: BP 130/74; TEMP 97.5; O2SAT 96
[2024-02-19 05:54] LABS: HEMATOCRIT 30.3 % (42.0-52.0); HEMOGLOBIN 9.9 g/dl (13.5-17.5); MEAN CORPUSCULAR HEMOGLOBIN 32.2 pg (27.0-33.0); MEAN CORPUSCULAR HGB CONC 32.7 g/dl (32.0-36.5); MEAN CORPUSCULAR VOLUME 98.7 fl (80.0-96.0); PLATELET COUNT, AUTOMATED 158 10^3/uL (150-450); RED BLOOD COUNT 3.07 10^6/uL (4.30-6.10); WHITE BLOOD COUNT 5.9 10^3/uL (4.0-10.0)
[2024-02-19] MEDS: FUROSEMIDE 40 MG TAB GT SCH (08:55)
[2024-02-19 12:08] VITALS: BP 101/59; TEMP 97.2; O2SAT 95
[2024-02-19] MEDS ORDERED: MOXI400T11 PO (13:06)
[2024-02-19] MEDS ORDERED: MOXI400T11 GT (17:40)
== END 2024-02-19 14:54 | disposition home or self-care (01) | DRG 189 ==
LOC: M ED 10:20 → EDBD 10:20 → M ED INP 16:22 → M MSPAV 22:30
PROVIDERS: ADMIT Student in an Organized Health Care Education/Training Program; ATTEND Student in an Organized Health Care Education/Training Program
DX: J96.21 Acute and chronic respiratory failure with hypoxia (principal); J15.9 Unspecified bacterial pneumonia; F72 Severe intellectual disabilities; I50.32 Chronic diastolic (congestive) heart failure; E87.4 Mixed disorder of acid-base balance; F20.9 Schizophrenia, unspecified; R13.12 Dysphagia, oropharyngeal phase; N18.30 Chronic kidney disease, stage 3 unspecified; G40.909 Epilepsy, unspecified, not intractable, without status epilepticus; E66.9 Obesity, unspecified; Z68.34 Body mass index [BMI] 34.0-34.9, adult; K21.9 Gastro-esophageal reflux disease without esophagitis; R32 Unspecified urinary incontinence; B34.8 Other viral infections of unspecified site; F32.A Depression, unspecified; F41.9 Anxiety disorder, unspecified; K59.00 Constipation, unspecified; Z79.899 Other long term (current) drug therapy; Z88.8 Allergy status to other drugs, medicaments and biological substances; Z88.5 Allergy status to narcotic agent; Z93.1 Gastrostomy status

== ENCOUNTER → 2024-02-23 | Outpatient (REF) | payer MEDICARE, MEDICAID ==
[~2024-02-23] MED LIST changes: +MOXI400T11 GT; +MOXI400T11 PO; +POTA20LI16 GT; +QUET100T2 GT; +[UNRECOGNIZED DRUG - REMARK]
[2024-02-23 13:26] LABS: BASO % 0.4 % (0.0-1.0); EOS # 0.3 10^3/uL (0.0-0.5); EOS % 3.5 % (0.0-3.0); HEMATOCRIT 34.8 % (42.0-52.0); HEMOGLOBIN 11.3 g/dl (13.5-17.5); LYMPH # 1.8 10^3/uL (1.5-5.0); LYMPH % 23.5 % (24.0-44.0); MEAN CORPUSCULAR HEMOGLOBIN 32.3 pg (27.0-33.0); MEAN CORPUSCULAR HGB CONC 32.5 g/dl (32.0-36.5); MEAN CORPUSCULAR VOLUME 99.4 fl (80.0-96.0); MONO % 13.4 % (2.0-8.0); NEUTROPHILS # 4.1 10^3/uL (1.5-8.5); NEUTROPHILS % 55.2 % (36.0-66.0); PLATELET COUNT, AUTOMATED 203 10^3/uL (150-450); WHITE BLOOD COUNT 7.5 10^3/uL (4.0-10.0)
[2024-02-23 13:49] LABS: HEMOGLOBIN A1c 5.3 % (4.0-6.0)
[2024-02-23 13:54] LABS: PSA SCREENING 3.25 NG/ML (< 4.00)
[2024-02-23 13:56] LABS: ALBUMIN 3.3 G/DL (3.2-5.2); BILIRUBIN,TOTAL 0.3 MG/DL (0.3-1.2); CALCIUM LEVEL 9.7 MG/DL (8.3-10.6); CHOLESTEROL RISK RATIO 3.37 (<5); CREATININE FOR GFR 1.33 MG/DL (0.70-1.30); GLOMERULAR FILTRATION RATE 56.1 (>42); HDL CHOLESTEROL 47.1 MG/DL (>40); LDL CHOLESTEROL 62.9 MG/DL (<100); NON-HDL-C 111.9 MG/DL; POTASSIUM SERUM 4.6 MMOL/L (3.5-5.1); TOTAL PROTEIN 7.8 G/DL (5.7-8.2)
[2024-02-23 13:58] LABS: FREE T4 0.85 NG/DL (0.89-1.76); THYROID STIMULATING HORMONE 4.637 uIU/ML (0.55-4.78)
== END ==
LOC: M SFHCCLAY 09:51
PROVIDERS: ATTEND Nurse Practitioner Family
DX: Z00.00 Encounter for general adult medical examination without abnormal findings (principal); R91.1 Solitary pulmonary nodule; F73 Profound intellectual disabilities; K59.09 Other constipation; R73.01 Impaired fasting glucose; F20.1 Disorganized schizophrenia; Z86.79 Personal history of other diseases of the circulatory system; J80 Acute respiratory distress syndrome; Z12.5 Encounter for screening for malignant neoplasm of prostate; Z79.899 Other long term (current) drug therapy
CPT/HCPCS: 80053; 80061; 83036; 84439; 84443; 85025; G0103

== ENCOUNTER 2024-03-15 17:46 | Inpatient (IN) | payer MEDICARE, MEDICAID ==
[~2024-03-15] VITALS: Ht 157.5 cm; Wt 79.5 kg
[~2024-03-15 17:46] MED LIST changes: +DOXY50CA PO; -DOXY50CA7 PO
[2024-03-15 19:08] LABS: BASO % 0.2 % (0.0-1.0); EOS # 0.1 10^3/uL (0.0-0.5); EOS % 1.1 % (0.0-3.0); HEMATOCRIT 34.9 % (42.0-52.0); HEMOGLOBIN 11.2 g/dl (13.5-17.5); LYMPH # 1.3 10^3/uL (1.5-5.0); LYMPH % 11.3 % (24.0-44.0); MEAN CORPUSCULAR HGB CONC 32.1 g/dl (32.0-36.5); MEAN CORPUSCULAR VOLUME 99.7 fl (80.0-96.0); MONO # 1.5 10^3/uL (0.0-0.8); MONO % 13.1 % (2.0-8.0); NEUTROPHILS # 8.4 10^3/uL (1.5-8.5); NEUTROPHILS % 73.4 % (36.0-66.0); PLATELET COUNT, AUTOMATED 203 10^3/uL (150-450); WHITE BLOOD COUNT 11.5 10^3/uL (4.0-10.0)
[2024-03-15 19:24] LABS: ALBUMIN 3.2 G/DL (3.2-5.2); ALKALINE PHOSPHATASE 107 U/L (40-129); ALT/SGPT 28 U/L (7.0-40); AST/SGOT 24 U/L (<34); BILIRUBIN,DIRECT < 0.1 MG/DL (<0.4); BILIRUBIN,TOTAL 0.3 MG/DL (0.3-1.2); BLOOD UREA NITROGEN 46 MG/DL (9-23); CALCIUM LEVEL 10.6 MG/DL (8.3-10.6); CARBON DIOXIDE LEVEL 36 MMOL/L (20-31); CHLORIDE LEVEL 94 MMOL/L (98-107); CREATININE FOR GFR 1.34 MG/DL (0.70-1.30); GLOMERULAR FILTRATION RATE 55.6 (>42); GLUCOSE, FASTING 99 MG/DL (74-106); POTASSIUM SERUM 4.1 MMOL/L (3.5-5.1); SODIUM LEVEL 141 MMOL/L (136-145); TOTAL PROTEIN 8.1 G/DL (5.7-8.2)
[2024-03-15] MEDS ORDERED: NEOM1SUS13 AU (20:27)
[2024-03-15] MEDS ORDERED: HOME MED LIST COMPLETE! XX SCH (20:30)
[2024-03-15] MEDS: NS 0.9% IV ONE (21:03)
[2024-03-15] MEDS: cefTRIAXone SOD 2 GM in DEXTROSE 5% (D5W) ADV/MINI-BAG 50 ML IV ONE (21:03)
[2024-03-15] MEDS: [UNRECOGNIZED DRUG - OTHER] IV ONE (21:03)
[2024-03-15] MEDS ORDERED: LEVALBUTEROL 1.25MG 0.5ML CONCENTRATE NEB INH PRN (21:20)
[2024-03-15] MEDS: DOXYCYCLINE HYCLATE 100 MG in DEXTROSE 5% (D5W) MINI-BAG PLU 100 ML IV SCH (22:14)
[2024-03-15 23:04] LABS: VENOUS BASE EXCESS 6.3 (-2.0-2.0); VENOUS HCO3 32.9 MMOL/L (23.0-27.0); VENOUS O2 SATURATION 88.5 % (60.0-80.0); VENOUS PH 7.372 UNITS (7.330-7.430); VENOUS TOTAL CO2 34.7 MMOL/L (24.0-28.0)
[2024-03-15 23:23] LABS: INR 1.11; PARTIAL THROMBOPLASTIN TIME 27.4 SECONDS (24.8-34.2); PROTHROMBIN TIME 14.6 SECONDS (12.5-14.5)
[2024-03-15] MEDS: ACETAMINOPHEN 325MG/10.15ML UDC GT PRN (23:24)
[2024-03-16] VITALS (8 sets, daily range): BP systolic 96–125; BP diastolic 48–63; TEMP 98.2–98.8; O2SAT 91–96
[2024-03-16] MEDS: IPRATROPIUM 0.5MG/ALBUTEROL 2.5MG INH SOL UD 3ML (DUONEB) INH SCH (00:33)
[2024-03-16] MEDS: IBUPROFEN 100MG 5ML SUSP UDC DYE FREE GT ONE (01:56)
[2024-03-16] MEDS: NS (Normal Saline) 0.9% 1,000 ML IV ONE (01:59)
[2024-03-16] MEDS ORDERED: NYSTATIN 100,000 UNITS/GM TOPICAL PWD 15GM TOP PRN (02:15)
[2024-03-16] MEDS ORDERED: VANCOMYCIN HCL 1,000 MG, VIAL MATE ADAPTER 1 EACH in NS 250 ML IV SCH (02:55)
[2024-03-16] MEDS: VANCOMYCIN HCL 1,500 MG, VIAL MATE ADAPTER 1 EACH in NS 500 ML IV ONE (03:17)
[2024-03-16] MEDS: FUROSEMIDE 20MG/2ML VIAL IV ONE (04:43)
[2024-03-16] MEDS: CEFEPIME HCL 2 GM in D5W 50 ML IV SCH (05:29)
[2024-03-16 06:41] LABS: HEMATOCRIT 27.8 % (42.0-52.0); MEAN CORPUSCULAR HEMOGLOBIN 32.5 pg (27.0-33.0); MEAN CORPUSCULAR VOLUME 101.5 fl (80.0-96.0); PLATELET COUNT, AUTOMATED 160 10^3/uL (150-450); RED BLOOD COUNT 2.74 10^6/uL (4.30-6.10); WHITE BLOOD COUNT 9.9 10^3/uL (4.0-10.0)
[2024-03-16 06:45] LABS: HEMOGLOBIN 8.9 g/dl (13.5-17.5)
[2024-03-16 06:55] LABS: ALBUMIN 2.5 G/DL (3.2-5.2); BILIRUBIN,TOTAL 0.2 MG/DL (0.3-1.2); CREATININE FOR GFR 1.32 MG/DL (0.70-1.30); GLOMERULAR FILTRATION RATE 56.6 (>42); MAGNESIUM LEVEL 1.8 MG/DL (1.8-2.4); POTASSIUM SERUM 4.5 MMOL/L (3.5-5.1); TOTAL PROTEIN 6.2 G/DL (5.7-8.2)
[2024-03-16] MEDS: MIRALAX *UNIT DOSE* 17GM PACKET GT SCH (09:00)
[2024-03-16] MEDS: PANTOPRAZOLE 40MG VIAL IV SCH (10:32)
[2024-03-16] MEDS: POTASSIUM CHLORIDE 10% LIQ 20MEQ/15ML UDC GT SCH (10:33)
[2024-03-16] MEDS: HEPARIN SOD (PORCINE) 5000UNITS/ML 1ML VIAL/SYRINGE SC SCH (10:33)
[2024-03-16] MEDS: DOCUSATE SOD LIQ 100MG/10ML UDC GT SCH (10:33)
[2024-03-16] MEDS: QUEtiapine FUMARATE 100 MG TAB GT SCH ×2 (10:33→21:11)
[2024-03-16] MEDS: LORazepam 0.5 MG TAB GT SCH (10:34)
[2024-03-16] MEDS: VALPROIC ACID 500MG/10ML SOL ORAL SYRINGE GT SCH (10:35)
[2024-03-16] MEDS: FUROSEMIDE 200 MG/20 ML ORAL SOL 60ML BTL GT SCH (10:36)
[2024-03-16] MEDS ORDERED: VANCOMYCIN HCL 750 MG, VIAL MATE ADAPTER 1 EACH in NS 250 ML IV SCH (12:00)
[2024-03-16] MEDS: CitaloPRAM (CeleXA) 20 MG TAB GT SCH (15:28)
[2024-03-16] MEDS: NS 500 ML IV ONE (18:48)
[2024-03-16] MEDS: MIDODRINE 5 MG TAB PO ONE (18:49)
[2024-03-16] MEDS ORDERED: cefTRIAXone SOD 2 GM in DEXTROSE 5% (D5W) ADV/MINI-BAG 50 ML IV SCH (20:00)
[2024-03-16] MEDS: SENNA 8.6 MG TAB (SENOKOT) GT SCH (21:11)
[2024-03-17] VITALS (10 sets, daily range): BP systolic 109–141; BP diastolic 53–85; TEMP 97.7–98.8; O2SAT 83–95
[2024-03-18] VITALS (10 sets, daily range): BP systolic 111–146; BP diastolic 62–74; TEMP 97.9–98.8; O2SAT 90–97
[2024-03-18 05:22] LABS: BASO # 0.1 10^3/uL (0.0-0.2); BASO % 0.8 % (0.0-1.0); EOS # 0.3 10^3/uL (0.0-0.5); EOS % 4.6 % (0.0-3.0); HEMATOCRIT 28.2 % (42.0-52.0); HEMOGLOBIN 8.7 g/dl (13.5-17.5); LYMPH # 1.5 10^3/uL (1.5-5.0); LYMPH % 23.3 % (24.0-44.0); MEAN CORPUSCULAR HEMOGLOBIN 31.5 pg (27.0-33.0); MEAN CORPUSCULAR HGB CONC 30.9 g/dl (32.0-36.5); MEAN CORPUSCULAR VOLUME 102.2 fl (80.0-96.0); MONO % 15.7 % (2.0-8.0); NEUTROPHILS # 3.5 10^3/uL (1.5-8.5); NEUTROPHILS % 52.7 % (36.0-66.0); PLATELET COUNT, AUTOMATED 155 10^3/uL (150-450); RED BLOOD COUNT 2.76 10^6/uL (4.30-6.10); WHITE BLOOD COUNT 6.6 10^3/uL (4.0-10.0)
[2024-03-18 05:55] LABS: CALCIUM LEVEL 9.6 MG/DL (8.3-10.6); CREATININE FOR GFR 1.26 MG/DL (0.70-1.30); GLOMERULAR FILTRATION RATE 59.7 (>42); POTASSIUM SERUM 4.3 MMOL/L (3.5-5.1)
[2024-03-19 03:20] VITALS: BP 128/57; TEMP 97.9; O2SAT 91
[2024-03-19 06:54] LABS: BASO % 0.7 % (0.0-1.0); EOS # 0.3 10^3/uL (0.0-0.5); EOS % 5.5 % (0.0-3.0); HEMATOCRIT 26.7 % (42.0-52.0); HEMOGLOBIN 8.5 g/dl (13.5-17.5); LYMPH # 1.5 10^3/uL (1.5-5.0); LYMPH % 24.9 % (24.0-44.0); MEAN CORPUSCULAR HEMOGLOBIN 32.3 pg (27.0-33.0); MEAN CORPUSCULAR HGB CONC 31.8 g/dl (32.0-36.5); MEAN CORPUSCULAR VOLUME 101.5 fl (80.0-96.0); MONO % 17.9 % (2.0-8.0); NEUTROPHILS # 2.7 10^3/uL (1.5-8.5); NEUTROPHILS % 46.7 % (36.0-66.0); PLATELET COUNT, AUTOMATED 155 10^3/uL (150-450); RED BLOOD COUNT 2.63 10^6/uL (4.30-6.10); WHITE BLOOD COUNT 5.8 10^3/uL (4.0-10.0)
[2024-03-19 07:25] LABS: CREATININE FOR GFR 1.35 MG/DL (0.70-1.30); GLOMERULAR FILTRATION RATE 55.2 (>42); PERCENT SATURATION 11.4 % (19.7-50.0); POTASSIUM SERUM 4.3 MMOL/L (3.5-5.1)
[2024-03-19 07:27] LABS: FERRITIN 116.2 NG/ML (10.5-307.3); FOLATE 23.19 NG/ML (>5.4)
[2024-03-19 08:00] VITALS: BP 128/59; TEMP 97.7; O2SAT 98
[2024-03-19] MEDS ORDERED: CEFD250S26 PO (10:51)
== END 2024-03-19 13:49 | disposition home or self-care (01) | DRG 871 ==
LOC: EDBD 17:46 → M ED 17:46 → M ED INP 21:17 → M MSPAV 03-16 09:10
PROVIDERS: ADMIT Family Medicine; ATTEND Internal Medicine Nephrology
DX: A41.9 Sepsis, unspecified organism (principal); J96.21 Acute and chronic respiratory failure with hypoxia; J69.0 Pneumonitis due to inhalation of food and vomit; J96.22 Acute and chronic respiratory failure with hypercapnia; E87.20 Acidosis, unspecified; F72 Severe intellectual disabilities; I50.32 Chronic diastolic (congestive) heart failure; J45.909 Unspecified asthma, uncomplicated; F20.9 Schizophrenia, unspecified; F41.9 Anxiety disorder, unspecified; R13.12 Dysphagia, oropharyngeal phase; N18.30 Chronic kidney disease, stage 3 unspecified; G40.909 Epilepsy, unspecified, not intractable, without status epilepticus; K21.9 Gastro-esophageal reflux disease without esophagitis; Z99.81 Dependence on supplemental oxygen; Z79.899 Other long term (current) drug therapy; Z88.1 Allergy status to other antibiotic agents; Z88.5 Allergy status to narcotic agent; Z93.1 Gastrostomy status

== ENCOUNTER → 2024-04-10 | Outpatient (CLI) | payer MEDICARE, MEDICAID ==
[~2024-04-10] MED LIST changes: +CEFD250S26 PO; +NEOM1SUS13 AU
== END ==
LOC: M WHC 09:03
PROVIDERS: ATTEND Nurse Practitioner Family
DX: M85.89 Other specified disorders of bone density and structure, multiple sites (principal)

== ENCOUNTER 2024-05-08 06:07 | Emergency (ER) | payer MEDICARE, MEDICAID ==
[2024-05-08] MEDS: CALCIUM CHLORIDE 10% 1 GM in D5W 100 ML IV ONE (06:10)
[2024-05-08] MEDS: EPINEPHrine 1MG/10ML SYRINGE 1.5IN IV STA (06:12)
[2024-05-08] MEDS: SODIUM BICARBONATE 8.4% INJ 50ML SYRINGE IV STA (06:13)
[2024-05-08] MEDS: MAGNESIUM SULFATE IN WATER 2 GM in IV 1 EA IV STA (06:13)
[2024-05-08] MEDS: DEXTROSE 50% 50ML SYRINGE IV STA (06:14)
[2024-05-08 06:48] LABS: HEMATOCRIT 36.4 % (42.0-52.0); HEMOGLOBIN 9.7 g/dl (13.5-17.5); MEAN CORPUSCULAR HEMOGLOBIN 31.5 pg (27.0-33.0); MEAN CORPUSCULAR HGB CONC 26.6 g/dl (32.0-36.5); PLATELET COUNT, AUTOMATED 159 10^3/uL (150-450); RED BLOOD COUNT 3.08 10^6/uL (4.30-6.10); WHITE BLOOD COUNT 10.7 10^3/uL (4.0-10.0)
[2024-05-08 06:52] LABS: MEAN CORPUSCULAR VOLUME 118.2 fl (80.0-96.0)
[2024-05-08 07:23] LABS: CALCIUM LEVEL 12.2 MG/DL (8.3-10.6); CREATININE FOR GFR 2.91 MG/DL (0.70-1.30); GLOMERULAR FILTRATION RATE 22.7 (>42); MAGNESIUM LEVEL 2.9 MG/DL (1.8-2.4); POTASSIUM SERUM 4.1 MMOL/L (3.5-5.1)
[2024-05-08 07:32] LABS: ATYPICAL LYMPH 2 % (0-5); BASOPHILS 1 % (0-1); EOSINOPHILS 2 % (0-3); LYMPHOCYTES 58 % (16-44); METAMYELOCYTES 2 % (0-0); MONOCYTES 8 % (0-5); MYELOCYTES 2 % (0-0); NEUTROPHILS 20 % (28-66); PLATELET ESTIMATE NORMAL (NORMAL); POLYCHROMASIA 1+
[2024-05-08 07:33] LABS: ANISOCYTOSIS 2+; POIKILOCYTOSIS 1+
== END 2024-05-08 09:09 | disposition expired ==
LOC: M ED 06:07
DX: I46.9 Cardiac arrest, cause unspecified (principal); G40.909 Epilepsy, unspecified, not intractable, without status epilepticus; E55.9 Vitamin D deficiency, unspecified; K21.9 Gastro-esophageal reflux disease without esophagitis; Z88.8 Allergy status to other drugs, medicaments and biological substances; Z86.79 Personal history of other diseases of the circulatory system; Z79.52 Long term (current) use of systemic steroids; Z79.899 Other long term (current) drug therapy
CPT/HCPCS: 80048; 83735; 85025; 96374; 96375; 99283; J0171; J3475